=== PATIENT | female | born 1940 | race Caucasian/White ===

== ENCOUNTER → 2016-08-16 | Outpatient (CLI) | payer MEDICARE ==
[2016-08-16 08:57] LABS: ALT 28 U/L (9-52); AST 24 U/L (14-36); Alkaline Phosphatase 65 U/L (38-126); Anion Gap 10 mmol/L; Blood Urea Nitrogen 22 mg/dL (7-17); Calcium 10.2 mg/dL (8.4-10.2); Carbon Dioxide 28 mmol/L (22-30); Chloride 105 mmol/L (98-107); Cholesterol 224 mg/dL (<200); Glucose 94 mg/dL (74-99); HDL Cholesterol 54 mg/dL (40-60); Non-African American GFR(MDRD) >60 (>60 ml/min/1.73 sqM); Potassium 5.6 mmol/L (3.5-5.1); Sodium 143 mmol/L (137-145); Total Bilirubin 0.5 mg/dL (0.2-1.3); Total Protein 7.7 g/dL (6.3-8.2); Triglycerides 108 mg/dL (<150)
== END | disposition home or self-care (01) ==
LOC: LABWHC1 08:12
PROVIDERS: ATTEND Internal Medicine Endocrinology, Diabetes & Metabolism
DX: E11.65 Type 2 diabetes mellitus with hyperglycemia (principal)
CPT/HCPCS: 36415; 80053; 80061; 82043

== ENCOUNTER → 2016-10-04 | Outpatient (CLI) | payer MEDICARE ==
--- NOTE | 2016-10-05 08:42 | MM ---
Reason for exam: screening (asymptomatic). Last mammogram was performed 1 year and 1 month ago. History: Patient is postmenopausal. Benign excisional biopsy of the left breast. Took estrogen for 13 years beginning at age 34. Physical Findings: A clinical breast exam by your physician is recommended on an annual basis and results should be correlated with mammographic findings. MG 3D Screening Mammo W/Cad Bilateral CC and MLO view(s) were taken. Prior study comparison: August 22, 2015, bilateral MG 3d screening mammo w/cad. July 02, 2014, bilateral MG screening mammo w CAD. June 08, 2013, bilateral digital screening mammo w/CAD. There are scattered fibroglandular densities. There is chronic nodularity bilaterally. No significant changes when compared with prior studies. ASSESSMENT: Negative, BI-RAD 1 RECOMMENDATION: Routine screening mammogram of both breasts in 1 year.
== END | disposition home or self-care (01) ==
LOC: RADMAMWWP 10:52
PROVIDERS: ATTEND Internal Medicine
DX: Z12.31 Encounter for screening mammogram for malignant neoplasm of breast (principal)
CPT/HCPCS: 77063; G0202

== ENCOUNTER → 2017-09-15 | Outpatient (CLI) | payer MEDICARE ==
--- NOTE | 2017-09-15 20:25 | MR ---
EXAMINATION TYPE: MR brain wo/w con DATE OF EXAM: 09/15/2017 COMPARISON: NONE HISTORY: Headaches, Pressure, Gadaivist 10ml CONTRAST: Performed utilizing 10 mL intravenous Gadavist gadolinium contrast. TECHNIQUE: Multiplanar, multiecho imaging on a 3.0 Tena magnet is performed through the brain. Stud y is performed within 24 hours of arrival to the hospital. The craniovertebral junction is normal. The pituitary is normal. Diffusion-weighted imaging is performed. No abnormal hyperintensity is present to suggest an acute i ntracranial infarct or acute ischemic change. There are multiple scattered punctate areas of hyperintensity on T2 and Inversion Recovery weighted s equences which are non-specific but can be related to microvascular ischemic changes. Ventricles and sulci are appropriate for the patient age. IMPRESSIONS: 1. Scattered nonspecific white matter changes can be related to microvascular ischemic change.
== END | disposition home or self-care (01) ==
LOC: RADMRIMAIN 16:23
PROVIDERS: ATTEND Internal Medicine
DX: R90.89 Other abnormal findings on diagnostic imaging of central nervous system (principal); R51 Headache
CPT/HCPCS: 82565; 70553; A9581

== ENCOUNTER → 2018-04-21 | Outpatient (CLI) | payer MEDICARE ==
--- NOTE | 2018-04-21 09:44 | US ---
EXAMINATION TYPE: US liver DATE OF EXAM: 04/21/2018 COMPARISON: NONE CLINICAL HISTORY: R94.5 ABN LIVER FUNCTIONS. Abnormal liver function test EXAM MEASUREMENTS: Liver Length: 16.0 cm Gallbladder Wall: 0.2 cm CBD: 0.9 cm Right Kidney: 9.6 x 4.5 x 5.1 cm Difficult and limited study due to patient body habitus Pancreas: obscured by overlying midline bowel gas Liver: mildly heterogeneous limiting evaluation for hepatic masses. Gallbladder: borderline hydropic Evidence for sonographic Myers's sign: no CBD: dilated Right Kidney: wnl IMPRESSION: 1. Dilated common bile duct measuring up to 9 mm. Further evaluation with MRCP could be performed. 2. Mild heterogenous hepatic echotexture, most commonly related to underlying hepatic steatosis. 3. Near hydropic size of the gallbladder suggesting biliary dysfunction. HIDA scan with CCK could ass ess for biliary dyskinesia and/or chronic cholecystitis.
== END ==
LOC: RADUSWWP 08:04
PROVIDERS: ATTEND Internal Medicine
DX: K83.8 Other specified diseases of biliary tract (principal)
CPT/HCPCS: 76705

== ENCOUNTER 2018-05-08 11:34 | Emergency (ER) | payer MEDICARE ==
[2018-05-08 11:42] VITALS: TEMP 97.4
[2018-05-08] MEDS ORDERED: SODIUM CHLORIDE 0.9% 1,000 ML IV STA (11:47)
--- NOTE | 2018-05-08 13:06 | ED ---
Weakness HPI - General Chief complaint: Weakness Stated complaint: Weakness Time Seen by Provider: 05/08/18 11:47 Source: patient, RN notes reviewed, old records reviewed Mode of arrival: wheelchair Limitations: no limitations - History of Present Illness Initial comments: This is a 69-year-old female the ER for evaluation. Patient presents for evaluation regards to weakness. Patient admits to weakness and fatigue for about 4-5 days. She states symptoms began on with an event that causes some sweating and shortness of breath that symptoms resolved and patient is just been increasingly fatigued and weak since. Patient states she's had generalized fatigue for about 7 years with no significant improvement. MD Complaint: generalized weakness, lack of energy, difficulty walking ( Secondary to weakness) -: days(s) (5) Location: generalized Severity: moderate Severity scale (1-10): 5 Quality: numbness Consistency: constant Improves with: none Worsens with: none Context: recent illness, history of similar Associated Symptoms: denies other symptoms - Related Data Home Medications Medication Instructions Recorded Confirmed Insulin Glargine [Lantus] 25 unit SQ HS 04/26/14 05/08/18 [place]-3 Fatty Acids [[place]-3] 2,000 mg PO PC-LUNCH 04/26/14 05/08/18 metFORMIN HCL [Glucophage] 1,000 mg PO PC-BID@1200,1800 04/26/14 05/08/18 Aspirin EC [Ecotrin Low Dose] 81 mg PO DAILY 05/08/18 05/08/18 Carvedilol [Coreg] 6.25 mg PO BID 05/08/18 05/08/18 Clopidogrel [Plavix] 75 mg PO DAILY 05/08/18 05/08/18 Gemfibrozil [Lopid] 600 mg PO AC-BID 05/08/18 05/08/18 Insulin Aspart [NovoLOG 5 - 10 unit SQ AC-TID 05/08/18 05/08/18 (formulary)] Latanoprost [Xalatan 0.005%] 1 drop BOTH EYES HS 05/08/18 05/08/18 Liraglutide [Victoza 2-Chriss] 0.6 mg SQ DAILY@1200 05/08/18 05/08/18 Losartan/Hydrochlorothiazide 1 tab PO DAILY 05/08/18 05/08/18 [Losartan-Hctz 100-25 mg Tab] Pantoprazole Sodium 40 mg PO DAILY 05/08/18 05/08/18 amLODIPine [Norvasc] 5 mg PO DAILY 05/08/18 05/08/18 Allergies Allergy/AdvReac Type Severity Reaction Status Date / Time bacitracin Allergy Unknown Verified 05/08/18 11:58 [From Neosporin ([id number])] bacitracin zinc Allergy Unknown Verified 05/08/18 11:58 [From Neosporin ([id number])] latex Allergy Rash/Hives Verified 05/08/18 11:58 neomycin sulfate Allergy Unknown Verified 05/08/18 11:58 [From Neosporin ([id number])] polymyxin B Allergy Unknown Verified 05/08/18 11:58 [From Neosporin ([id number])] Penicillins AdvReac Rash & Verified 05/08/18 11:58 Fatigue Sulfa (Sulfonamide AdvReac Rash & Verified 05/08/18 11:58 Antibiotics) Fatigue Review of Systems ROS Statement: Those systems with pertinent positive or pertinent negative responses have been documented in the HPI. ROS Other: All systems not noted in ROS Statement are negative. Past Medical History Past Medical History: Diabetes Mellitus, GERD/Reflux, Hypertension, Sleep Apnea/ CPAP/BIPAP, Syncope, Thyroid Disorder Additional Past Medical History / Comment(s): ARTHRITIS/BACK PAIN/ PERM BRIDGE History of Any Multi-Drug Resistant Organisms: None Reported Past Surgical History: Appendectomy, Hysterectomy Additional Past Surgical History / Comment(s): vein strippingM MYRINGOTOMY/TUBES /COLONOSCOPY/LEFT BREAST BIOPSY-NEG Past Anesthesia/Blood Transfusion Reactions: No Reported Reaction Past Psychological History: No Psychological Hx Reported Smoking Status: Former smoker Past Alcohol Use History: Occasional Past Drug Use History: None Reported - Past Family History Father Family Medical History: Cancer Additional Family Medical History / Comment(s): COLON CA Mother Family Medical History: Diabetes Mellitus Additional Family Medical History / Comment(s): RENAL FAILURE General Exam Limitations: no limitations General appearance: alert, in no apparent distress Head exam: Present: atraumatic, normocephalic, normal inspection Eye exam: Present: normal appearance, PERRL, EOMI. Absent: scleral icterus, conjunctival injection, periorbital swelling ENT exam: Present: normal exam, mucous membranes moist Neck exam: Present: normal inspection. Absent: tenderness, meningismus, lymphadenopathy Respiratory exam: Present: normal lung sounds bilaterally. Absent: respiratory distress, wheezes, rales, rhonchi, stridor Cardiovascular Exam: Present: regular rate, normal rhythm, normal heart sounds. Absent: systolic murmur, diastolic murmur, rubs, gallop, clicks GI/Abdominal exam: Present: soft, normal bowel sounds. Absent: distended, tenderness, guarding, rebound, rigid Extremities exam: Present: normal inspection, full ROM, normal capillary refill. Absent: tenderness, pedal edema, joint swelling, calf tenderness Back exam: Present: normal inspection Neurological exam: Present: alert, oriented X3, CN II-XII intact Psychiatric exam: Present: normal affect, normal mood Skin exam: Present: warm, dry, intact, normal color. Absent: rash Course Vital Signs 05/08/18 05/08/18 05/08/18 11:39 13:39 14:00 Temperature 97.4 F L Pulse Rate 60 55 L 54 L Respiratory 18 18 18 Rate Blood Pressure 115/80 135/61 135/61 O2 Sat by Pulse 99 99 97 Oximetry - Reevaluation(s) Reevaluation #1: 05/08/18 13:06 Medical record is reviewed, noncontributory, no prior ER visit for same EKG Findings - EKG Comments: EKG Findings:: EKG shows sinus bradycardia rate of 56, MA 150, QRS 70, QTc 420 Medical Decision Making - Medical Decision Making 69 female the ER for weakness no acute cause found, labwork is normal. Patient can be discharged home - Lab Data Result diagrams: 05/08/18 13:21 05/08/18 13:21 Lab Results 05/08/18 05/08/18 05/08/18 Range/Units 13:20 13:21 13:21 WBC 6.6 (3.8-10.6) k/uL RBC 4.05 (3.80-5.40) m/uL Hgb 12.3 (11.4-16.0) gm/dL Hct 36.8 (34.0-46.0) % MCV 90.8 (80.0-100.0) fL MCH 30.2 (25.0-35.0) pg MCHC 33.3 (31.0-37.0) g/dL RDW 13.6 (11.5-15.5) % Plt Count 370 (150-450) k/uL Neutrophils % 74 % Lymphocytes % 14 % Monocytes % 5 % Eosinophils % 3 % Basophils % 0 % Neutrophils # 4.9 (1.3-7.7) k/uL Lymphocytes # 0.9 L (1.0-4.8) k/uL Monocytes # 0.3 (0-1.0) k/uL Eosinophils # 0.2 (0-0.7) k/uL Basophils # 0.0 (0-0.2) k/uL Sodium (137-145) mmol/L Potassium (3.5-5.1) mmol/L Chloride (98-107) mmol/L Carbon Dioxide (22-30) mmol/L Anion Gap mmol/L BUN (7-17) mg/dL Creatinine (0.52-1.04) mg/dL Est GFR (CKD-EPI)AfAm (>60 ml/min/1.73 sqM) Est GFR (CKD-EPI)NonAf (>60 ml/min/1.73 sqM) Glucose (74-99) mg/dL Plasma Lactic Acid Cody (0.7-2.0) mmol/L Calcium (8.4-10.2) mg/dL Phosphorus (2.5-4.5) mg/dL Magnesium (1.6-2.3) mg/dL Total Bilirubin (0.2-1.3) mg/dL AST (14-36) U/L ALT (9-52) U/L Alkaline Phosphatase (38-126) U/L Total Creatine Kinase 33 (30-135) U/L CK-MB (CK-2) 0.7 (0.0-2.4) ng/mL CK-MB (CK-2) Rel Index 2.1 Troponin I <0.012 (0.000-0.034) ng/mL NT-Pro-B Natriuret Pep pg/mL Total Protein (6.3-8.2) g/dL Albumin (3.5-5.0) g/dL Urine Color Yellow Urine Appearance Cloudy H (Clear) Urine pH 6.0 (5.0-8.0) Ur Specific Hulen 1.012 (1.001-1.035) Urine Protein Negative (Negative) Urine Glucose (UA) 3+ H (Negative) Urine Ketones Negative (Negative) Urine Blood Negative (Negative) Urine Nitrite Negative (Negative) Urine Bilirubin Negative (Negative) Urine Urobilinogen <2.0 (<2.0) mg/dL Ur Leukocyte Esterase Moderate H (Negative) Urine WBC 2 (0-5) /hpf Ur Squamous Epith Cells 9 H (0-4) /hpf Urine Bacteria Few H (None) /hpf Urine Mucus Rare H (None) /hpf 05/08/18 05/08/18 05/08/18 Range/Units 13:21 13:21 13:21 WBC (3.8-10.6) k/uL RBC (3.80-5.40) m/uL Hgb (11.4-16.0) gm/dL Hct (34.0-46.0) % MCV (80.0-100.0) fL MCH (25.0-35.0) pg MCHC (31.0-37.0) g/dL RDW (11.5-15.5) % Plt Count (150-450) k/uL Neutrophils % % Lymphocytes % % Monocytes % % Eosinophils % % Basophils % % Neutrophils # (1.3-7.7) k/uL Lymphocytes # (1.0-4.8) k/uL Monocytes # (0-1.0) k/uL Eosinophils # (0-0.7) k/uL Basophils # (0-0.2) k/uL Sodium 138 (137-145) mmol/L Potassium 5.3 H (3.5-5.1) mmol/L Chloride 104 (98-107) mmol/L Carbon Dioxide 23 (22-30) mmol/L Anion Gap 11 mmol/L BUN 26 H (7-17) mg/dL Creatinine 0.96 (0.52-1.04) mg/dL Est GFR (CKD-EPI)AfAm 66 (>60 ml/min/1.73 sqM) Est GFR (CKD-EPI)NonAf 57 (>60 ml/min/1.73 sqM) Glucose 269 H (74-99) mg/dL Plasma Lactic Acid Cody 2.1 H* (0.7-2.0) mmol/L Calcium 9.8 (8.4-10.2) mg/dL Phosphorus 4.8 H (2.5-4.5) mg/dL Magnesium 1.5 L (1.6-2.3) mg/dL Total Bilirubin 0.7 (0.2-1.3) mg/dL AST 26 (14-36) U/L ALT 34 (9-52) U/L Alkaline Phosphatase 81 (38-126) U/L Total Creatine Kinase (30-135) U/L CK-MB (CK-2) (0.0-2.4) ng/mL CK-MB (CK-2) Rel Index Troponin I (0.000-0.034) ng/mL NT-Pro-B Natriuret Pep 203 pg/mL Total Protein 7.3 (6.3-8.2) g/dL Albumin 4.4 (3.5-5.0) g/dL Urine Color Urine Appearance (Clear) Urine pH (5.0-8.0) Ur Specific [place] (1.001-1.035) Urine Protein (Negative) Urine Glucose (UA) (Negative) Urine Ketones (Negative) Urine Blood (Negative) Urine Nitrite (Negative) Urine Bilirubin (Negative) Urine Urobilinogen (<2.0) mg/dL Ur Leukocyte Esterase (Negative) Urine WBC (0-5) /hpf Ur Squamous Epith Cells (0-4) /hpf Urine Bacteria (None) /hpf Urine Mucus (None) /hpf Disposition Clinical Impression: Dehydration, Weakness, IDDM (insulin dependent diabetes mellitus) Disposition: HOME SELF-CARE Condition: Good Instructions (If sedation given, give patient instructions): Weakness (ED) Is patient prescribed a controlled substance at d/c from ED?: No Referrals: Aundrea Gamez MD [Primary Care Provider] - 1-2 days
[2018-05-08 13:52] VITALS: BP 135/61
[2018-05-08 13:53] LABS: Basophils % (A) 0 %; Eosinophils # (A) 0.2 k/uL (0-0.7); Eosinophils % (A) 3 %; HCT 36.8 % (34.0-46.0); HGB 12.3 gm/dL (11.4-16.0); Lymphocytes # (A) 0.9 k/uL (1.0-4.8); Lymphocytes % (A) 14 %; MCH 30.2 pg (25.0-35.0); MCHC 33.3 g/dL (31.0-37.0); MCV 90.8 fL (80.0-100.0); Mean Platelet Volume 7.6; Monocytes # (A) 0.3 k/uL (0-1.0); Monocytes % (A) 5 %; Neutrophils # (A) 4.9 k/uL (1.3-7.7); Neutrophils % (A) 74 %; Platelet Count 370 k/uL (150-450); RBC 4.05 m/uL (3.80-5.40); RDW 13.6 % (11.5-15.5); WBC 6.6 k/uL (3.8-10.6)
[2018-05-08 14:00] LABS: Appearance,Urine Cloudy (Clear); Bacteria,Urine Few /hpf; Bilirubin,Urine Negative (Negative); Blood,Urine Negative (Negative); Color,Urine Yellow; Glucose,Urine (UA) 3+ (Negative); Ketones,Urine Negative (Negative); Leukocyte Esterase,Urine Moderate (Negative); Mucus,Urine Rare /hpf; Nitrite,Urine Negative (Negative); Protein,Urine Negative (Negative); Specific Gravity,Urine 1.012 (1.001-1.035); Squamous Epithelial Cell,Urine 9 /hpf (0-4); Urobilinogen,Urine <2.0 mg/dL (<2.0); WBC,Urine 2 /hpf (0-5)
[2018-05-08 14:02] LABS: Albumin 4.4 g/dL (3.5-5.0); Calcium 9.8 mg/dL (8.4-10.2); Magnesium 1.5 mg/dL (1.6-2.3); Phosphorus 4.8 mg/dL (2.5-4.5); Potassium 5.3 mmol/L (3.5-5.1); Total Bilirubin 0.7 mg/dL (0.2-1.3); Total Protein 7.3 g/dL (6.3-8.2)
[2018-05-08 14:08] LABS: Creatine Kinase 33 U/L (30-135)
[2018-05-08 14:20] LABS: Creatine Kinase MB 0.7 ng/mL (0.0-2.4); Troponin I <0.012 ng/mL (0.000-0.034)
[2018-05-08 15:41] VITALS: PULSE 60; RESP 18
== END 2018-05-08 15:51 | disposition home or self-care (01) ==
LOC: EC 11:34
DX: E86.0 Dehydration (principal); E11.9 Type 2 diabetes mellitus without complications; R53.1 Weakness; K21.9 Gastro-esophageal reflux disease without esophagitis; I10 Essential (primary) hypertension; G47.30 Sleep apnea, unspecified; Z99.89 Dependence on other enabling machines and devices; E07.9 Disorder of thyroid, unspecified; Z87.891 Personal history of nicotine dependence; Z79.4 Long term (current) use of insulin; Z79.82 Long term (current) use of aspirin; Z79.01 Long term (current) use of anticoagulants; Z79.899 Other long term (current) drug therapy; Z88.1 Allergy status to other antibiotic agents; Z88.0 Allergy status to penicillin; Z88.2 Allergy status to sulfonamides; Z91.040 Latex allergy status
CPT/HCPCS: 36415; 80053; 81001; 82550; 82553; 83605; 83735; 83880; 84100; 84484; 85025; 87086; 93005; 96360; 96361; 99285

== ENCOUNTER → 2018-05-18 | Outpatient (CLI) | payer MEDICARE ==
--- NOTE | 2018-05-18 14:32 | BD ---
EXAMINATION TYPE: Axial Bone Density DATE OF EXAM: 05/18/2018 COMPARISON: NONE CLINICAL HISTORY: Height: Weight: FRAX RISK QUESTIONS: Alcohol (3 or more units per day): no Family History (Parent hip fracture): no Glucocorticoids (More than 3mos): no (Ex: prednisone, prednisolone, methylprednisolone, dexamethasone, and hydrocortisone). History of Fracture in Adulthood: no Secondary Osteoporosis: 1. Type 1 Diabetes: no 2. Hyperthyroidism: no 3. Menopause before 45: yes 4. Malnutrition: no 5. Chronic liver disease: no Rheumatoid Arthritis: no Current Tobacco Use: no RISK FACTORS HISTORY OF: Active: no Diet low in dairy products/other sources of calcium: no Postmenopausal woman: hysterectomy age34 t more than 2 inches in height since high school: yes Frequent falls: no MEDICATIONS: losartan, carvedilol, amlodipine, metformin, aspirin, novalog, lantis, clopidogrel Additional History: EXAM MEASUREMENTS: Bone mineral densitometry was performed using the [employer] System. Bone mineral density as measured about the Lumbar spine is: ----- L1-L4(G/cm2): 0.985 T Score Values are as follows: ----- L2: -2.1 ----- L3: -0.9 ----- L4: -1.3 ----- L1-L4: -1.6 Bone mineral density has:increased 4.9 % since study of 12.01.2015 Bone mineral density about the R hip (g/cm2): 0.878 Bone mineral density about the L hip (g/cm2): 0.857 T Score values are as follows: -----R Neck: -1.2 -----L Neck: -1.3 -----R Total: -0.6 -----L Total: -0.6 Bone mineral density has: decreased -4.0% since study 12.01.2015 IMPRESSION: Osteopenia lumbar spine. NOTE: T-SCORE=SD OF THE YOUNG ADULT MEAN.
--- NOTE | 2018-05-19 13:55 | MM ---
Reason for exam: screening (asymptomatic). Last mammogram was performed 1 year and 7 months ago. History: Patient is postmenopausal. Benign excisional biopsy of the left breast. Took estrogen for 13 years beginning at age 34. Physical Findings: A clinical breast exam by your physician is recommended on an annual basis and results should be correlated with mammographic findings. MG 3D Screening Mammo W/Cad Bilateral CC and MLO view(s) were taken. Prior study comparison: October 04, 2016, bilateral MG 3d screening mammo w/cad. August 28, 2015, right breast MG work up mamm w CAD RT. There are scattered fibroglandular densities. Benign appearing bilateral calcifications. No suspicious abnormality. Post biopsy change on left. No significant changes when compared with prior studies. ASSESSMENT: Benign, BI-RAD 2 RECOMMENDATION: Routine screening mammogram of both breasts in 1 year.
== END | disposition home or self-care (01) ==
LOC: RADMAMWWP 13:23
PROVIDERS: ATTEND Internal Medicine
DX: Z12.31 Encounter for screening mammogram for malignant neoplasm of breast (principal); M85.851 Other specified disorders of bone density and structure, right thigh; M85.88 Other specified disorders of bone density and structure, other site
CPT/HCPCS: 77063; 77067; 77080

== ENCOUNTER → 2018-11-28 | Outpatient (CLI) | payer MEDICARE ==
--- NOTE | 2018-11-28 14:50 | US ---
EXAMINATION TYPE: US kidneys/renal and bladder DATE OF EXAM: 11/28/2018 COMPARISON: NONE CLINICAL HISTORY: R33.9 Urinary retention. Urinary retention EXAM MEASUREMENTS: Right Kidney: 10.0 x 4.0 x 4.2 cm Left Kidney: 10.7 x 5.9 x 4.6 cm Post Void Residual Volume: 6.7 mL Right Kidney: no evidence of hydronephrosis Left Kidney: no evidence of hydronephrosis Bladder: appears wnl Bilateral Jets seen: no Normal Post Void Residual: yes There is no evidence for hydronephrosis at this point in time. No nephrolithiasis is seen. No kike s are identified. The urinary bladder is anechoic. Bilateral ureteral jets are seen. Tiny amount of urine is seen after voiding. IMPRESSION: Unremarkable study. No abnormal post void residual noted.
== END | disposition home or self-care (01) ==
LOC: RADUSWWP 14:10
PROVIDERS: ATTEND Internal Medicine
DX: R33.9 Retention of urine, unspecified (principal)
CPT/HCPCS: 76770

== ENCOUNTER 2019-06-13 06:16 | Day surgery (SDC) | payer MEDICARE ==
[2019-06-08 12:08] VITALS: BMI 37.5
[2019-06-13] MEDS ORDERED: ALPRAZolam 0.5 MG TAB PO PRN (06:23)
[2019-06-13] MEDS ORDERED: ASPIRIN 325 MG TAB PO STA (06:23)
[2019-06-13] MEDS ORDERED: ATORVASTATIN 80 MG TAB PO STA (06:23)
[2019-06-13] MEDS ORDERED: SODIUM CHLORIDE 0.9% 1,000 ML in EMPTY BAG 1 BAG IV ONE (06:23)
[2019-06-13] MEDS ORDERED: NITROGLYCERIN SL TABS 0.4 MG TAB SUBLINGUAL PRN (06:23)
[2019-06-13] MEDS ORDERED: ALPRAZolam 0.25 MG TAB PO PRN (06:23)
[2019-06-13] MEDS ORDERED: ASPIRIN 81 MG PO ONE (07:09)
[2019-06-13 07:13] VITALS: TEMP 97.7
[2019-06-13 07:15] LABS: Glucose,Whole Blood 174 mg/dL (75-99)
[2019-06-13 07:31] LABS: Calcium 9.8 mg/dL (8.4-10.2); Potassium 5.5 mmol/L (3.5-5.1)
[2019-06-13] MEDS ORDERED: LIDOCAINE 1% INJ 10MG/ML (20 ML MDV) ONE (08:50)
[2019-06-13] MEDS ORDERED: fentaNYL (PF) 50 MCG/ML 2 ML AMP ONE (09:02)
[2019-06-13] MEDS ORDERED: LIDOCAINE 1% INJ 10MG/ML (20 ML MDV) SQ ONE (09:41)
[2019-06-13] MEDS ORDERED: fentaNYL (PF) 50 MCG/ML 2 ML AMP IVP ONE (09:41)
[2019-06-13] MEDS ORDERED: MIDAZOLAM 2 MG/2 ML VIAL IVP ONE (09:41)
[2019-06-13] MEDS ORDERED: NITROGLYCERIN 1000MCG/10ML SYRINGE INTRACORON ONE (09:47)
[2019-06-13] MEDS ORDERED: IOPAMIDOL-370 125ML BTL INJ ONE (09:55)
[2019-06-13] MEDS ORDERED: RX INFO: IV CONTRAST WAS GIVEN 1 EACH MISC MISCELLANE PRN (10:12)
[2019-06-13] MEDS ORDERED: SODIUM CHLORIDE 0.9% 1,000 ML IV SCH (10:15)
--- NOTE | 2019-06-13 10:36 | LTR ---
June 13, 2019 Re: Becky Cameron Dear Dr. Gamez: I had the opportunity to perform cardiac catheterization on Mrs. Barnes at [facility] on the 12 of June and a full copy of her procedure note will be forwarded to you. In brief, she was found to have no evidence of restenosis of the prior stenting with evidence of mild triple-vessel coronary disease and a mild plaque in the left main. In view of those finding, I recommend to continue medical therapy with aggressive coronary risk modifications that have been initiated. Those findings and recommendation were discussed with the patient and her family and are in full understanding and agreement. Sincerely yours, MD AMARJIT Lazo / ADELEN: [phone] /
--- NOTE | 2019-06-13 10:36 | CC ---
CARDIAC CATHETERIZATION REPORT Mrs. Barnes is a 78-year-old female with known history of hypertension, hyperlipidemia, and diabetes mellitus, who has been complaining of progressive dyspnea on exertion, had a myocardial perfusion imaging that revealed an anterolateral wall inducible ischemia. In view of that, recommendation was made regarding cardiac catheterization. The procedure as well as the risks and the complications were discussed with the patient who is in full understanding and agreement. PROCEDURE: Patient was brought to the veterinarian laboratory animal care in a fasting semi-sedated state after receiving fentanyl and Benadryl and achieving moderate conscious sedated state. Using Xylocaine anesthesia in the Seldinger technique, a 6-[place] sheath was introduced in the right femoral artery. Selective right and left coronary angiography performed using 6-[place]ank[place] 4 bend right and left Natalie catheter. Multiple views of the coronary artery including hemiaxial views were obtained. Following that, 6-[place]ank[place] tight pigtail catheter introduced in the left ventricle and pressures were calculated. Following that, catheter and sheath were removed. Hemostasis was obtained with deployment of Angio-Seal. There was no immediate complication. Patient was returned to her room in stable condition. FINDING: LEFT MAIN: This is a large-sized vessel bifurcating left circumflex, left anterior descending artery. Left main coronary artery has a 20% to 30% plaque proximally eccentric. The rest of the vessel has no high-grade stenosis. LEFT ANTERIOR DESCENDING ARTERY: This is a large-sized vessel reaching to the apex, tapers down distally and gives rise to a moderately sized diagonal branch. The stented segment of proximal LAD is patent. There is diffuse intimal disease in the LAD after the stented segment. The lumen of the vessel is small, but there is no evidence of high-grade stenosis. LEFT CIRCUMFLEX: This is a nondominant vessel giving rise to 2 obtuse marginal branches. The left circumflex has mild intimal disease without any evidence of high- grade stenosis. RIGHT CORONARY ARTERY: This is a dominant vessel, large in caliber bifurcating distally PDA and posterolateral segment and branches. The right coronary artery and distal segment at the bifurcation has a 10% to 20% plaque. There is another plaque in the mid segment. The rest of the vessel has no high-grade stenosis. LEFT VENTRICULOGRAM: Left ventriculogram was not performed. HEMODYNAMICS: There was no gradient across the aortic valve. The left ventricle end-diastolic pressure was 12 to 16 mmHg. CONCLUSION: 1. Mild triple vessel coronary disease with mild disease involving the left main. 2. No evidence of restenosis at the site of the prior stenting. RECOMMENDATION: In view of finding and anatomy, I recommend to continue medical therapy with aggressive coronary risk modifications that have been initiated. Those findings and recommendations were discussed with the patient and her family and they are in full understanding and agreement. Duration of procedure is 15 minutes. MMBILLIE / ADELEN: [phone] /
[2019-06-13 15:05] VITALS: RESP 16
[2019-06-13 15:15] VITALS: BP 148/62
[2019-06-13 16:06] VITALS: PULSE 65
[2019-06-13] MEDS ORDERED: CARVEDILOL 6.25 MG TAB PO SCH (17:30)
[2019-06-13] MEDS ORDERED: GEMFIBROZIL 600 MG PO SCH (17:30)
[2019-06-13] MEDS ORDERED: INSULIN GLARGINE 15 UNIT SQ SCH (21:00)
[2019-06-14] MEDS ORDERED: PANTOPRAZOLE 40 MG TABLET PO SCH (07:30)
[2019-06-14] MEDS ORDERED: LOSARTAN-HCTZ 50-12.5 MG 1 EACH TAB PO SCH (09:00)
[2019-06-14] MEDS ORDERED: CHOLECALCIFEROL 1,000 UNIT TAB PO SCH (09:00)
[2019-06-14] MEDS ORDERED: CYANOCOBALAMIN 500 MCG TAB PO SCH (09:00)
[2019-06-14] MEDS ORDERED: LACTOBACILLUS ACIDOPH & BULGAR 1 EACH PACKET PO SCH (09:00)
[2019-06-14] MEDS ORDERED: FERROUS SULFATE 325 MG TAB PO SCH (09:00)
[2019-06-14] MEDS ORDERED: CLOPIDOGREL 75 MG TAB PO SCH (09:00)
[2019-06-14] MEDS ORDERED: amLODIPine 5 MG TAB PO SCH (09:00)
[2019-06-14] MEDS ORDERED: FAMOTIDINE 20 MG TAB PO SCH (09:00)
[2019-06-14] MEDS ORDERED: ASPIRIN 81 MG PO SCH (09:00)
[2019-06-14] MEDS ORDERED: MULTIVITAMINS, THERA 1 EACH TAB PO SCH (09:00)
== END 2019-06-13 16:15 | disposition home or self-care (01) ==
LOC: CATHCVL 06:16
PROVIDERS: ATTEND Internal Medicine Interventional Cardiology
DX: I25.10 Atherosclerotic heart disease of native coronary artery without angina pectoris (principal); E78.2 Mixed hyperlipidemia; I10 Essential (primary) hypertension; E11.9 Type 2 diabetes mellitus without complications; I73.9 Peripheral vascular disease, unspecified; E78.00 Pure hypercholesterolemia, unspecified; R60.0 Localized edema; M25.50 Pain in unspecified joint; R01.1 Cardiac murmur, unspecified; F17.210 Nicotine dependence, cigarettes, uncomplicated; E66.9 Obesity, unspecified; Z68.37 Body mass index [BMI] 37.0-37.9, adult; Z79.899 Other long term (current) drug therapy; Z79.82 Long term (current) use of aspirin; Z79.02 Long term (current) use of antithrombotics/antiplatelets; Z95.5 Presence of coronary angioplasty implant and graft; Z79.4 Long term (current) use of insulin; Z88.0 Allergy status to penicillin; Z88.2 Allergy status to sulfonamides
CPT/HCPCS: 93458; 80048; C1760; C1894; C1769; J2250; J2001; J3010; Q9967

== ENCOUNTER 2021-04-08 05:46 | Day surgery (SDC) | payer MEDICARE ==
[2021-03-30 11:14] VITALS: BMI 34.5
[~2021-04-08 05:46] MED LIST: Pre Op ABX Message 1 EACH MISC MISCELLANE ONE
[2021-04-08] MEDS ORDERED: LIDOCAINE 1% (10MG/ML) FOR IV START INTRADERMA PRN (06:00)
[2021-04-08] MEDS ORDERED: LACTATED RINGERS 1,000 ML IV SCH (06:00)
[2021-04-08 06:36] VITALS: RESP 16; TEMP 97.4
[2021-04-08 06:55] LABS: Glucose,Whole Blood 251 mg/dL (75-99)
[2021-04-08] MEDS ORDERED: ONDANSETRON 4 MG/2 ML VIAL IVP PRN (07:00)
[2021-04-08] MEDS ORDERED: METOCLOPRAMIDE 5 MG/ML 2 ML VIAL IVP PRN (07:00)
[2021-04-08] MEDS ORDERED: INSULIN ASPART (NovoLOG) 100 UNIT/ML VIAL SQ ONE (07:05)
[2021-04-08] MEDS ORDERED: CLINDAMYCIN 600 MG in DEXTROSE 5% IN WATER 50 ML IVPB STA ×2 (07:19)
[2021-04-08 07:24] LABS: Basophils % (A) 0 %; Eosinophils # (A) 0.5 k/uL (0-0.7); Eosinophils % (A) 7 %; HCT 34.1 % (34.0-46.0); HGB 11.2 gm/dL (11.4-16.0); Lymphocytes # (A) 1.3 k/uL (1.0-4.8); Lymphocytes % (A) 17 %; MCH 30.8 pg (25.0-35.0); MCV 93.6 fL (80.0-100.0); Mean Platelet Volume 8.5; Monocytes # (A) 0.5 k/uL (0-1.0); Monocytes % (A) 7 %; Neutrophils # (A) 4.9 k/uL (1.3-7.7); Neutrophils % (A) 67 %; Platelet Count 323 k/uL (150-450); RBC 3.64 m/uL (3.80-5.40); RDW 12.7 % (11.5-15.5); WBC 7.3 k/uL (3.8-10.6)
[2021-04-08] MEDS ORDERED: fentaNYL (PF) 50 MCG/ML 2 ML AMP ONE (07:27)
[2021-04-08] MEDS ORDERED: PROPOFOL 10 MG/ML 20 ML VIAL IV ONE (07:27)
[2021-04-08] MEDS ORDERED: MIDAZOLAM 2 MG/2 ML VIAL ONE (07:27)
[2021-04-08] MEDS: fentaNYL (PF) 50 MCG/ML 2 ML AMP IV PRN ×2 (08:06→08:18)
[2021-04-08] MEDS ORDERED: ONDANSETRON 4 MG/2 ML VIAL ONE (08:26)
[2021-04-08] MEDS ORDERED: ONDANSETRON 4 MG/2 ML VIAL IVP ONE (08:27)
[2021-04-08 09:08] LABS: Glucose,Whole Blood 214 mg/dL (75-99)
[2021-04-08 09:09] VITALS: PULSE 74
[2021-04-08 09:47] VITALS: BP 157/66
--- NOTE | 2021-04-30 15:42 | P.OP ---
Date of Procedure: 04/08/21 Description of Procedure: Preoperative diagnosis: Nonhealing left lower extremity wound Postoperative diagnosis: Same Procedure: [Sharp excisional debridement of left lower extremity wound measuring 5.1 x 4.5 x 0.5 cm to muscle Placement of Epifix dermal matrix] Surgeon: Francoise Triana D.O. EBL: [<10cc] IV fluids: [See records] Urine output: [see records] Drains: [none] Complications: [None immediately apparent] Condition: [Stable to recovery] Operative indication and findings: [The patient is an 80-year-old female with a nonhealing left lower extremity wound she has been on antibiotic therapy for this patient for the pain and this wound therefore she is brought here today for debridement and possible skin substitute with epifix. Risks and benefits were discussed. He seemingly understood and is willing to proceed as such] Procedure in detail: [Patient was taken to the operative suite and placed in supine position. The left lower extremity is prepped and draped in usual sterile fashion. A preprocedure timeout was performed, all parties are in agreement. Using a scalpel and curet the wound was debrided. Measurements are as above. It did track deep and there is no purulent drainage or discharge. There was healthy-appearing fatty tissue and muscle therefore the incision was made for the dermal matrix. The epi-fix was placed and sutured in place with sutures of 3-0 chromic. An Adaptic dressing was placed followed by gauze. The patient was allowed awaken from anesthesia and transported to recovery in stable condition having tolerated procedure well.]
== END 2021-04-08 10:10 | disposition home health service (06) ==
LOC: OR 05:46
PROVIDERS: ATTEND Surgery
DX: L97.222 Non-pressure chronic ulcer of left calf with fat layer exposed (principal); E11.621 Type 2 diabetes mellitus with foot ulcer; I10 Essential (primary) hypertension; E11.51 Type 2 diabetes mellitus with diabetic peripheral angiopathy without gangrene; I65.29 Occlusion and stenosis of unspecified carotid artery; Z79.899 Other long term (current) drug therapy; Z79.4 Long term (current) use of insulin; E11.42 Type 2 diabetes mellitus with diabetic polyneuropathy
CPT/HCPCS: 84132; 85025; 11042; 11045; C1713; J2250; J2405; J3010; J2704; J1790

== ENCOUNTER 2021-05-20 10:30 | Day surgery (SDC) | payer MEDICARE ==
[2021-05-19 08:57] VITALS: BMI 34.0
--- NOTE | 2021-05-20 10:20 | P.GSHP ---
History of Present Illness H&P Date: 05/20/21 Chief Complaint: Ulcer left leg The patient had an injury of the left leg. She developed progressive ulceration. She did have vascular intervention. She is admitted for further debridement. Past Medical History Past Medical History: Diabetes Mellitus, GERD/Reflux, Hypertension, Osteoarthritis (OA), Skin Disorder, Syncope, Vascular Disorder Additional Past Medical History / Comment(s): Arthritis in lower back. Poor circulation in legs, wound left lower leg calf area w/ pain, neuropathy in feet, goes to [facility]. Edema bilateral lower extremities, wears TEDS on right leg. Shortness of breath. History of Any Multi-Drug Resistant Organisms: None Reported Past Surgical History: Appendectomy, Breast Surgery, Ear Surgery, Heart Catheterization, Heart Catheterization With Stent, Hysterectomy Additional Past Surgical History / Comment(s): Varicose vein stripping left leg, left ear myringotomy/tubes, colonoscopy, left breast biopsy, bilateral cataracts, left leg wound debridement. Past Anesthesia/Blood Transfusion Reactions: No Reported Reaction Date of Last Stent Placement:: 11/26 Past Psychological History: No Psychological Hx Reported Smoking Status: Former smoker Past Alcohol Use History: Rare Additional Past Alcohol Use History / Comment(s): STARTED SMOKING AT AGE 14, SMOKED 2PPD, QUIT IN I991. Past Drug Use History: None Reported - Past Family History Father Family Medical History: Cancer Additional Family Medical History / Comment(s): COLON CANCER. Mother Family Medical History: Diabetes Mellitus, Renal Disease Additional Family Medical History / Comment(s): RENAL FAILURE. Brother(s) Family Medical History: Cancer Additional Family Medical History / Comment(s): 3 brothers - 2 had stomach cancer, 1 had esophagueal cancer. Medications and Allergies Home Medications Medication Instructions Recorded Confirmed Type Insulin Glargine [Lantus] 6 unit SQ HS 04/26/14 03/30/21 History metFORMIN HCL [Glucophage] 500 mg PO AC-BRKFST 04/26/14 03/30/21 History Aspirin EC [Ecotrin Low Dose] 81 mg PO DAILY 05/08/18 03/30/21 History INSULIN ASPART (NovoLOG) [NovoLOG 8 - 12 unit SQ AC-TID 05/08/18 03/30/21 History (formulary)] Pantoprazole Sodium 40 mg PO DAILY 05/08/18 03/30/21 History carvediloL [Coreg] 6.25 mg PO BID 05/08/18 03/30/21 History gemfibroziL [Lopid] 600 mg PO AC-BID 05/08/18 03/30/21 History Cholecalciferol [Vitamin D3 (25 2,000 unit PO DAILY 06/08/19 03/30/21 History Mcg = 1000 Iu)] Cyanocobalamin (Vitamin B-12) 2,000 mcg PO DAILY 06/08/19 03/30/21 History [Vitamin B-12] Famotidine [Pepcid] 20 mg PO HS 06/08/19 03/30/21 History Ferrous Sulfate [Feosol] 325 mg PO DAILY 06/08/19 03/30/21 History Flaxseed Oil 1,000 mg PO BID 06/08/19 03/30/21 History L.acidoph,Paracasei, B.lactis 1 each PO DAILY 06/08/19 03/30/21 History [Probiotic] Vitamin C/Biotin [Hair, Skin and 1 tab PO DAILY 06/08/19 03/30/21 History Nails] Acetaminophen [Tylenol Extra 500 - 1,000 mg PO DIRECTED PRN 03/30/21 03/30/21 History Strength] Ascorbic Acid [Vitamin C] 1,000 mg PO DAILY 03/30/21 03/30/21 History Furosemide [Lasix] 40 mg PO DAILY 03/30/21 03/30/21 History Losartan Potassium [Cozaar] 50 mg PO DAILY 03/30/21 03/30/21 History hydroCHLOROthiazide [Hydrodiuril] 25 mg PO DAILY 03/30/21 03/30/21 History Allergies Allergy/AdvReac Type Severity Reaction Status Date / Time bacitracin Allergy Unknown Verified 05/19/21 08:37 [From Neosporin ([id number])] bacitracin zinc Allergy Unknown Verified 05/19/21 08:37 [From Neosporin ([id number])] latex Allergy Rash/Hives Verified 05/19/21 08:37 neomycin sulfate Allergy Unknown Verified 05/19/21 08:37 [From Neosporin ([id number])] polymyxin B Allergy Unknown Verified 05/19/21 08:37 [From Neosporin ([id number])] Penicillins AdvReac Rash & Verified 05/19/21 08:37 Fatigue Sulfa (Sulfonamide AdvReac Rash & Verified 05/19/21 08:37 Antibiotics) Fatigue Surgical - Exam Osteopathic Statement: *. No significant issues noted on an osteopathic structural exam other than those noted in the History and Physical/Consult. - General well developed, well nourished, no distress - Eyes normal ocular movement, no icteric - ENT no hearing loss, no congestion - Neck no masses, trachea midline - Respiratory normal respiratory effort, clear to auscultation - Abdomen Abdomen: soft, non tender, no guarding, no rigid, no rebound - Integumentary no rash, no abnormal pigmentation - Neurologic no disoriented, no combative - Psychiatric oriented to time, oriented to person, oriented to place, speech is normal, memory intact ulcer left lower leg Assessment and Plan (1) Diabetic ulcer of left lower leg associated with diabetes mellitus due to u nderlying condition, with fat layer exposed Status: Acute Code(s): E08.622 - DIABETES DUE TO UNDERLYING CONDITION W OTH SKIN ULCER; L97.922 - NON-PRS CHR ULC UNSP PRT OF L LOW LEG W FAT LAYER EXPOSED SNOMED Code(s): 125364354 Plan: "Patient is admitted for debridement of the left lower leg. We discussed with her options and risks and she wishes to proceed."
[~2021-05-20 10:30] MED LIST changes: +DEXAMETHASONE SOD PHOSPHATE 4 MG/ML 1 ML VIAL IV ONE; +HYDROmorphone 0.5 MG/0.5 ML SYRINGE IVP PRN; +LACTATED RINGERS 1,000 ML IV SCH; +LIDOCAINE 1% (10MG/ML) FOR IV START INTRADERMA PRN; +MIDAZOLAM 2 MG/2 ML VIAL IV PRN; +ONDANSETRON 4 MG/2 ML VIAL IVP ONE
[2021-05-20 11:05] VITALS: TEMP 97.2
[2021-05-20 11:09] LABS: Glucose,Whole Blood 251 mg/dL (75-99)
[2021-05-20] MEDS ORDERED: INSULIN ASPART (NovoLOG) 100 UNIT/ML VIAL SQ ONE (11:16)
[2021-05-20] MEDS ORDERED: PROPOFOL 10 MG/ML 20 ML VIAL IV ONE (11:58)
[2021-05-20] MEDS ORDERED: MIDAZOLAM 2 MG/2 ML VIAL ONE (11:58)
[2021-05-20] MEDS ORDERED: fentaNYL (PF) 50 MCG/ML 2 ML AMP ONE (11:58)
[2021-05-20] MEDS ORDERED: HYDROmorphone (PF) 1 MG/ML ONE (11:58)
--- NOTE | 2021-05-20 12:26 | P.OP ---
Date of Procedure: 05/20/21 Preoperative Diagnosis: Ulcer left calf Postoperative Diagnosis: Same Procedure(s) Performed: Surgical debridement left calf Anesthesia: MAC Surgeon: Leonardo Herrera Estimated Blood Loss (ml): 25 Pathology: none sent Condition: stable Disposition: PACU Indications for Procedure: The patient has a painful ulcer on the left calf. There continues to be some nonviable tissue which we were unable to debridement due to discomfort. Operative Findings: We were able to remove all nonviable tissue down to the fascia and to viable fatty tissue circumferentially. Prior to debridement the wound measured 4.7 x 4.7 cm. It was about 1 cm in depth. Following the debridement we took the debridement down to bleeding fascia and viable fatty tissue circumferentially and the depth was 5 x 5 cm and 1 cm in depth. We removed nonviable fatty tissue slough and eschar. Description of Procedure: With the patient spine position, under benefit of IV sedation, we prepped and draped in standard fashion. We first used a curette and then used a scalpel to excise any nonviable grayish slough, eschar and nonviable fatty tissue. This took us directly down to the fascia and circumferentially to what appeared to be viable adipose circumferentially. Hemostasis was accomplished with direct pressure. Silver alginate and gauze dressings were applied as well as an Rudolph wrap. The patient tolerated the procedure well and was taken recovery area in stable condition.
[2021-05-20 12:41] LABS: Glucose,Whole Blood 179 mg/dL (75-99)
[2021-05-20] MEDS ORDERED: HYDROcodone/APAP 5-325MG 1 EACH TAB ONE (12:43)
[2021-05-20] MEDS: MORPHINE SULFATE 4 MG/ML SYRINGE ONE ×3 (12:50→13:10)
[2021-05-20] MEDS ORDERED: ONDANSETRON 4 MG/2 ML VIAL ONE (13:09)
[2021-05-20 15:53] VITALS: BP 166/70; PULSE 66; RESP 20
== END 2021-05-20 15:55 | disposition home or self-care (01) ==
LOC: OR 10:30
PROVIDERS: ATTEND Thoracic Surgery (Cardiothoracic Vascular Surgery)
DX: E11.622 Type 2 diabetes mellitus with other skin ulcer (principal); L97.229 Non-pressure chronic ulcer of left calf with unspecified severity; K21.9 Gastro-esophageal reflux disease without esophagitis; I10 Essential (primary) hypertension; M19.90 Unspecified osteoarthritis, unspecified site; E11.40 Type 2 diabetes mellitus with diabetic neuropathy, unspecified; E11.51 Type 2 diabetes mellitus with diabetic peripheral angiopathy without gangrene; M47.816 Spondylosis without myelopathy or radiculopathy, lumbar region; Z90.49 Acquired absence of other specified parts of digestive tract; F17.200 Nicotine dependence, unspecified, uncomplicated; I83.90 Asymptomatic varicose veins of unspecified lower extremity; Z95.5 Presence of coronary angioplasty implant and graft; Z90.710 Acquired absence of both cervix and uterus; Z98.890 Other specified postprocedural states; N28.9 Disorder of kidney and ureter, unspecified; Z97.2 Presence of dental prosthetic device (complete) (partial); Z98.42 Cataract extraction status, left eye; Z98.41 Cataract extraction status, right eye; Z80.0 Family history of malignant neoplasm of digestive organs; Z83.3 Family history of diabetes mellitus; Z84.1 Family history of disorders of kidney and ureter; Z79.84 Long term (current) use of oral hypoglycemic drugs; Z79.82 Long term (current) use of aspirin; Z79.4 Long term (current) use of insulin; Z79.899 Other long term (current) drug therapy; Z88.0 Allergy status to penicillin; Z88.2 Allergy status to sulfonamides; Z88.3 Allergy status to other anti-infective agents; Z91.040 Latex allergy status
CPT/HCPCS: 11043; 11046; J2250; J2270; J1100; J2405; J3010; J1170; J2704; J1790

== ENCOUNTER 2021-06-17 10:00 | Inpatient (IN) | payer MEDICARE ==
[2021-06-17 10:18] LABS: Glucose,Whole Blood 367 mg/dL (75-99)
[2021-06-17] MEDS ORDERED: MORPHINE SULFATE 2 MG/ML SYRINGE IVP STA (10:27)
[2021-06-17] MEDS ORDERED: SODIUM CHLORIDE 0.9% 1,000 ML IV STA (10:27)
[2021-06-17 11:16] LABS: Basophils % (A) 0 %; Eosinophils # (A) 0.2 k/uL (0-0.7); Eosinophils % (A) 2 %; HCT 27.4 % (34.0-46.0); HGB 8.7 gm/dL (11.4-16.0); Hypochromasia Slight; Lymphocytes # (A) 1.5 k/uL (1.0-4.8); Lymphocytes % (A) 15 %; MCH 31.1 pg (25.0-35.0); MCHC 31.7 g/dL (31.0-37.0); Mean Platelet Volume 7.8; Monocytes # (A) 0.6 k/uL (0-1.0); Monocytes % (A) 6 %; Neutrophils # (A) 7.6 k/uL (1.3-7.7); Neutrophils % (A) 74 %; Platelet Count 520 k/uL (150-450); RDW 14.4 % (11.5-15.5); WBC 10.3 k/uL (3.8-10.6)
[2021-06-17 11:31] LABS: Albumin 3.6 g/dL (3.5-5.0); Calcium 9.5 mg/dL (8.4-10.2); Magnesium 2.3 mg/dL (1.6-2.3); Potassium 4.9 mmol/L (3.5-5.1); Total Bilirubin 0.6 mg/dL (0.2-1.3); Total Protein 6.7 g/dL (6.3-8.2)
--- NOTE | 2021-06-17 11:35 | XR ---
EXAMINATION TYPE: XR tibia fibula LT DATE OF EXAM: 06/17/2021 COMPARISON: NONE HISTORY: Pain TECHNIQUE: Two views are submitted. FINDINGS: There is a large soft tissue wound along the medial margin of the tibia. Diffuse osteopenia with ther e is arthropathy of the knee joint. No acute fracture. Soft tissue calcifications are seen. No destru ctive changes. IMPRESSION: 1. Large ulceration or soft tissue wound along the medial margin of the left lower extremity. No dest ructive osseous changes.
--- NOTE | 2021-06-17 11:37 | XR ---
EXAMINATION TYPE: XR foot complete LT DATE OF EXAM: 06/17/2021 COMPARISON: NONE HISTORY: Swelling TECHNIQUE: Three views are submitted. FINDINGS: The osseous structures are intact. There is no acute fracture or dislocation. Diffuse osteopenia w ith arthropathy of the MTP, PIP and DIP joints. Soft tissue calcifications are seen adjacent to the d istal tibia. There is soft tissue edema. IMPRESSION: 1. Diffuse osteopenia and soft tissue edema. No destructive changes seen to suggest osteomyelitis.
[2021-06-17] MEDS ORDERED: SODIUM CHLORIDE 0.9% 500 ML 500 ML IV ONE (11:51)
[2021-06-17] MEDS ORDERED: VANCOMYCIN IV PER PHARMACY 1 EACH MISC MISCELLANE PRN (11:53)
[2021-06-17] MEDS ORDERED: VANCOMYCIN 1,500 MG in SODIUM CHLORIDE 0.9% 250 ML IVPB STA (11:58)
[2021-06-17 12:00] LABS: INR 0.9 (<1.2); Prothrombin Time 9.7 sec (9.0-12.0)
[2021-06-17 12:03] LABS: Partial Thromboplastin Time 20.9 sec (22.0-30.0)
[2021-06-17 13:15] LABS: Appearance,Urine Cloudy (Clear); Bacteria,Urine Many /hpf; Bilirubin,Urine Negative (Negative); Blood,Urine Moderate (Negative); Color,Urine Light Yellow; Glucose,Urine (UA) 4+ (Negative); Ketones,Urine Negative (Negative); Leukocyte Esterase,Urine Negative (Negative); Nitrite,Urine Negative (Negative); Protein,Urine Negative (Negative); RBC,Urine 1 /hpf (0-5); Specific Gravity,Urine 1.008 (1.001-1.035); Squamous Epithelial Cell,Urine 15 /hpf (0-4); Urobilinogen,Urine <2.0 mg/dL (<2.0); WBC,Urine 2 /hpf (0-5)
[2021-06-17] MEDS ORDERED: ACETAMINOPHEN TAB 325 MG TAB PO PRN (13:16)
[2021-06-17] MEDS ORDERED: NALOXONE 0.4 MG/ML 1 ML VIAL IV PRN ×2 (13:16→15:08)
--- NOTE | 2021-06-17 13:22 | ED ---
General Adult HPI - General Chief complaint: Weakness Stated complaint: foot/leg pain, high blood sugar Time Seen by Provider: 06/17/21 10:10 Source: patient, RN notes reviewed, old records reviewed Mode of arrival: wheelchair Limitations: no limitations - History of Present Illness Initial comments: 80-year-old female presenting for evaluation of pain in the left lower extremity. Patient has had a nonhealing wound for many months. She is following at the wound center. She is not currently on antibiotics. She's had increased pain in her left heel and at the site of the ulceration on her mid calf left lower extremity. She denies fever. She states she does have history of hypertension and took her antihypertensive medications this morning. Pain is severe enough that she cannot ambulate on this extremity. - Related Data Home Medications Medication Instructions Recorded Confirmed Insulin Glargine [Lantus] 8 unit SQ HS 04/26/14 06/17/21 metFORMIN HCL [Glucophage] 500 mg PO AC-BRKFST 04/26/14 06/17/21 Aspirin EC [Ecotrin Low Dose] 81 mg PO DAILY 05/08/18 06/17/21 INSULIN ASPART (NovoLOG) [NovoLOG 5 - 12 unit SQ AC-TID 05/08/18 06/17/21 (formulary)] Pantoprazole Sodium 40 mg PO DAILY 05/08/18 06/17/21 gemfibroziL [Lopid] 600 mg PO AC-BID 05/08/18 06/17/21 Cholecalciferol [Vitamin D3 (25 2,000 unit PO DAILY 06/08/19 06/17/21 Mcg = 1000 Iu)] Cyanocobalamin (Vitamin B-12) 2,000 mcg PO DAILY 06/08/19 06/17/21 [Vitamin B-12] Famotidine [Pepcid] 20 mg PO HS 06/08/19 06/17/21 Ferrous Sulfate [Feosol] 325 mg PO DAILY 06/08/19 06/17/21 Flaxseed Oil 1,000 mg PO BID 06/08/19 06/17/21 L.acidoph,Paracasei, B.lactis 1 cap PO DAILY 06/08/19 06/17/21 [Probiotic] Acetaminophen [Tylenol Extra 1,500 mg PO Q6H PRN 03/30/21 06/17/21 Strength] Ascorbic Acid [Vitamin C] 1,000 mg PO DAILY 03/30/21 06/17/21 Furosemide [Lasix] 40 mg PO DAILY 03/30/21 06/17/21 hydroCHLOROthiazide [Hydrodiuril] 25 mg PO DAILY 03/30/21 06/17/21 ALPRAZolam [Xanax] 0.25 mg PO DAILY PRN 06/17/21 06/17/21 Canagliflozin [Invokana] 100 mg PO DAILY 06/17/21 06/17/21 Carvedilol [Coreg] 6.25 mg PO BID 06/17/21 06/17/21 Fluticasone Nasal [place] [Flonase 1 spray EA NOSTRIL DAILY PRN 06/17/21 06/17/21 Nasal [place]] Losartan Potassium [Cozaar] 25 mg PO DAILY 06/17/21 06/17/21 Pregabalin [Lyrica] 75 mg PO BID 06/17/21 06/17/21 Allergies Allergy/AdvReac Type Severity Reaction Status Date / Time bacitracin Allergy Unknown Verified 06/17/21 10:08 [From Neosporin ([id number])] bacitracin zinc Allergy Unknown Verified 06/17/21 10:08 [From Neosporin ([id number])] latex Allergy Rash/Hives Verified 06/17/21 10:08 neomycin sulfate Allergy Unknown Verified 06/17/21 10:08 [From Neosporin ([id number])] polymyxin B Allergy Unknown Verified 06/17/21 10:08 [From Neosporin ([id number])] Penicillins AdvReac Rash & Verified 06/17/21 10:08 Fatigue Sulfa (Sulfonamide AdvReac Rash & Verified 06/17/21 10:08 Antibiotics) Fatigue Review of Systems ROS Statement: Those systems with pertinent positive or pertinent negative responses have been documented in the HPI. ROS Other: All systems not noted in ROS Statement are negative. Past Medical History Past Medical History: Diabetes Mellitus, GERD/Reflux, Hypertension, Osteoarthritis (OA), Skin Disorder, Syncope, Vascular Disorder Additional Past Medical History / Comment(s): Arthritis in lower back. Poor circulation in legs, wound left lower leg calf area w/ pain, neuropathy in feet, goes to Wound Center. Edema bilateral lower extremities, wears TEDS on right leg. Shortness of breath.shortness of breath History of Any Multi-Drug Resistant Organisms: None Reported Past Surgical History: Appendectomy, Breast Surgery, Ear Surgery, Heart Catheterization, Heart Catheterization With Stent, Hysterectomy Additional Past Surgical History / Comment(s): Varicose vein stripping left leg, left ear myringotomy/tubes, colonoscopy, left breast biopsy, bilateral cataracts, left leg wound debridement. Past Anesthesia/Blood Transfusion Reactions: No Reported Reaction Date of Last Stent Placement:: 11/26 Past Psychological History: No Psychological Hx Reported Smoking Status: Former smoker Past Alcohol Use History: Rare Past Drug Use History: None Reported - Past Family History Father Family Medical History: Cancer Additional Family Medical History / Comment(s): COLON CANCER. Mother Family Medical History: Diabetes Mellitus, Renal Disease Additional Family Medical History / Comment(s): RENAL FAILURE. Brother(s) Family Medical History: Cancer Additional Family Medical History / Comment(s): 3 brothers - 2 had stomach cancer, 1 had esophagueal cancer. General Exam Limitations: no limitations General appearance: alert, in no apparent distress Head exam: Present: atraumatic, normocephalic Eye exam: Present: normal appearance, PERRL ENT exam: Present: normal exam Neck exam: Present: normal inspection Respiratory exam: Present: normal lung sounds bilaterally. Absent: respiratory distress, wheezes Cardiovascular Exam: Present: regular rate, normal rhythm GI/Abdominal exam: Present: soft. Absent: distended, tenderness, guarding Extremities exam: Present: other (Left leg is erythematous, warm to the touch. There is a nonhealing wound in the medial mid left calf. There is tenderness to palpation over the calcaneus and small ulceration on the base of the heel.) Neurological exam: Present: alert, oriented X3 Psychiatric exam: Present: normal affect, normal mood Skin exam: Present: warm, dry Course Vital Signs 06/17/21 06/17/21 10:01 11:05 Temperature 97.2 F L Pulse Rate 64 66 Respiratory 18 16 Rate Blood Pressure 71/52 99/80 O2 Sat by Pulse 100 95 Oximetry EKG Findings - EKG Comments: EKG Findings:: EKG: Sinus rhythm ventricular rate is 68, NJ interval 162, QRS duration 83, QTC 453, no ST segment elevation Procedures - Sepsis Sepsis Focused Exam #1 Sepsis Focused Exam Date: 06/17/21 Sepsis Focused Exam Time: 13:22 Capillary Refill: < 2 Seconds: Fingers, Toes Peripheral Pulses: Strong: Radial (R), Radial (L) Skin Color: Normal for Patient Respiratory Exam: normal lung sounds Cardiovascular Exam: regular rate, normal rhythm Medical Decision Making - Medical Decision Making 80-year-old female with nonhealing wound to the left lower extremity, surrounding cellulitis. Patient is initially hypotensive although she did take her antihypertensive medication this morning. She started on IV fluid. She has a normal white blood cell count. She has anemia 8.7. She has high lactic acid 6.1 which I suspect is a combination of both infection and dehydration. This level will be repeated after IV hydration. She started on ceftriaxone and vancomycin in the emergency department. X-rays will be obtained. She will be admitted to internal medicine, [facility], Konrad is aware with vascular surgery on consultation. - Lab Data Result diagrams: 06/17/21 10:53 06/17/21 10:53 Lab Results 06/17/21 06/17/21 06/17/21 Range/Units 10:16 10:53 10:53 WBC 10.3 (3.8-10.6) k/uL RBC 2.80 L (3.80-5.40) m/uL Hgb 8.7 L (11.4-16.0) gm/dL Hct 27.4 L (34.0-46.0) % MCV 98.0 (80.0-100.0) fL MCH 31.1 (25.0-35.0) pg MCHC 31.7 (31.0-37.0) g/dL RDW 14.4 (11.5-15.5) % Plt Count 520 H (150-450) k/uL MPV 7.8 Neutrophils % 74 % Lymphocytes % 15 % Monocytes % 6 % Eosinophils % 2 % Basophils % 0 % Neutrophils # 7.6 (1.3-7.7) k/uL Lymphocytes # 1.5 (1.0-4.8) k/uL Monocytes # 0.6 (0-1.0) k/uL Eosinophils # 0.2 (0-0.7) k/uL Basophils # 0.0 (0-0.2) k/uL Hypochromasia Slight PT 9.7 (9.0-12.0) sec INR 0.9 (<1.2) APTT 20.9 L (22.0-30.0) sec Sodium (137-145) mmol/L Potassium (3.5-5.1) mmol/L Chloride (98-107) mmol/L Carbon Dioxide (22-30) mmol/L Anion Gap mmol/L BUN (7-17) mg/dL Creatinine (0.52-1.04) mg/dL Est GFR (CKD-EPI)AfAm (>60 ml/min/1.73 sqM) Est GFR (CKD-EPI)NonAf (>60 ml/min/1.73 sqM) Glucose (74-99) mg/dL POC Glucose (mg/dL) 367 H (75-99) mg/dL POC Glu [employer] Alexis Fitzgerald Nicole Lactic Ac Sepsis Rflx Plasma Lactic Acid Cody (0.7-2.0) mmol/L Calcium (8.4-10.2) mg/dL Magnesium (1.6-2.3) mg/dL Total Bilirubin (0.2-1.3) mg/dL AST (14-36) U/L ALT (4-34) U/L Alkaline Phosphatase (38-126) U/L Troponin I (0.000-0.034) ng/mL Total Protein (6.3-8.2) g/dL Albumin (3.5-5.0) g/dL Urine Color Urine Appearance (Clear) Urine pH (5.0-8.0) Ur Specific [place] (1.001-1.035) Urine Protein (Negative) Urine Glucose (UA) (Negative) Urine Ketones (Negative) Urine Blood (Negative) Urine Nitrite (Negative) Urine Bilirubin (Negative) Urine Urobilinogen (<2.0) mg/dL Ur Leukocyte Esterase (Negative) Urine RBC (0-5) /hpf Urine WBC (0-5) /hpf Ur Squamous Epith Cells (0-4) /hpf Urine Bacteria (None) /hpf 06/17/21 06/17/21 06/17/21 Range/Units 10:53 10:53 10:53 WBC (3.8-10.6) k/uL RBC (3.80-5.40) m/uL Hgb (11.4-16.0) gm/dL Hct (34.0-46.0) % MCV (80.0-100.0) fL MCH (25.0-35.0) pg MCHC (31.0-37.0) g/dL RDW (11.5-15.5) % Plt Count (150-450) k/uL MPV Neutrophils % % Lymphocytes % % Monocytes % % Eosinophils % % Basophils % % Neutrophils # (1.3-7.7) k/uL Lymphocytes # (1.0-4.8) k/uL Monocytes # (0-1.0) k/uL Eosinophils # (0-0.7) k/uL Basophils # (0-0.2) k/uL Hypochromasia PT (9.0-12.0) sec INR (<1.2) APTT (22.0-30.0) sec Sodium 135 L (137-145) mmol/L Potassium 4.9 (3.5-5.1) mmol/L Chloride 98 (98-107) mmol/L Carbon Dioxide 22 (22-30) mmol/L Anion Gap 15 mmol/L BUN 69 H (7-17) mg/dL Creatinine 1.66 H (0.52-1.04) mg/dL Est GFR (CKD-EPI)AfAm 33 (>60 ml/min/1.73 sqM) Est GFR (CKD-EPI)NonAf 29 (>60 ml/min/1.73 sqM) Glucose 296 H (74-99) mg/dL POC Glucose (mg/dL) (75-99) mg/dL POC Glu [employer]visor [employer] ID Lactic Ac Sepsis Rflx Plasma Lactic Acid [place] 6.1 H* (0.7-2.0) mmol/L Calcium 9.5 (8.4-10.2) mg/dL Magnesium 2.3 (1.6-2.3) mg/dL Total Bilirubin 0.6 (0.2-1.3) mg/dL AST 16 (14-36) U/L ALT 10 (4-34) U/L Alkaline Phosphatase 98 (38-126) U/L Troponin I (0.000-0.034) ng/mL Total Protein 6.7 (6.3-8.2) g/dL Albumin 3.6 (3.5-5.0) g/dL Urine Color Light Yellow Urine Appearance Cloudy H (Clear) Urine pH 6.0 (5.0-8.0) Ur Specific [place] 1.008 (1.001-1.035) Urine Protein Negative (Negative) Urine Glucose (UA) 4+ H (Negative) Urine Ketones Negative (Negative) Urine Blood Moderate H (Negative) Urine Nitrite Negative (Negative) Urine Bilirubin Negative (Negative) Urine Urobilinogen <2.0 (<2.0) mg/dL Ur Leukocyte Esterase Negative (Negative) Urine RBC 1 (0-5) /hpf Urine WBC 2 (0-5) /hpf Ur Squamous Epith Cells 15 H (0-4) /hpf Urine Bacteria Many H (None) /hpf 06/17/21 06/17/21 Range/Units 10:53 11:51 WBC (3.8-10.6) k/uL RBC (3.80-5.40) m/uL Hgb (11.4-16.0) gm/dL Hct (34.0-46.0) % MCV (80.0-100.0) fL MCH (25.0-35.0) pg MCHC (31.0-37.0) g/dL RDW (11.5-15.5) % Plt Count (150-450) k/uL MPV Neutrophils % % Lymphocytes % % Monocytes % % Eosinophils % % Basophils % % Neutrophils # (1.3-7.7) k/uL Lymphocytes # (1.0-4.8) k/uL Monocytes # (0-1.0) k/uL Eosinophils # (0-0.7) k/uL Basophils # (0-0.2) k/uL Hypochromasia PT (9.0-12.0) sec INR (<1.2) APTT (22.0-30.0) sec Sodium (137-145) mmol/L Potassium (3.5-5.1) mmol/L Chloride (98-107) mmol/L Carbon Dioxide (22-30) mmol/L Anion Gap mmol/L BUN (7-17) mg/dL Creatinine (0.52-1.04) mg/dL Est GFR (CKD-EPI)AfAm (>60 ml/min/1.73 sqM) Est GFR (CKD-EPI)NonAf (>60 ml/min/1.73 sqM) Glucose (74-99) mg/dL POC Glucose (mg/dL) (75-99) mg/dL POC Glu [employer]visor [employer] ID Lactic Ac Sepsis Rflx Y Plasma Lactic Acid [place] (0.7-2.0) mmol/L Calcium (8.4-10.2) mg/dL Magnesium (1.6-2.3) mg/dL Total Bilirubin (0.2-1.3) mg/dL AST (14-36) U/L ALT (4-34) U/L Alkaline Phosphatase (38-126) U/L Troponin I <0.012 (0.000-0.034) ng/mL Total Protein (6.3-8.2) g/dL Albumin (3.5-5.0) g/dL Urine Color Urine Appearance (Clear) Urine pH (5.0-8.0) Ur Specific [place] (1.001-1.035) Urine Protein (Negative) Urine Glucose (UA) (Negative) Urine Ketones (Negative) Urine Blood (Negative) Urine Nitrite (Negative) Urine Bilirubin (Negative) Urine Urobilinogen (<2.0) mg/dL Ur Leukocyte Esterase (Negative) Urine RBC (0-5) /hpf Urine WBC (0-5) /hpf Ur Squamous Epith Cells (0-4) /hpf Urine Bacteria (None) /hpf Disposition Clinical Impression: Diabetic ulcer of left lower leg associated with diabetes mellitus due to underlying condition, with fat layer exposed, Dehydration, Lactic acid acidosis Disposition: ADMITTED IP TO THIS HOSP Condition: Stable Is patient prescribed a controlled substance at d/c from ED?: No
[2021-06-17] MEDS: SODIUM CHLORIDE 0.9% 1,000 ML IV SCH (13:43)
[2021-06-17] MEDS ORDERED: FLUTICASONE 50MCG/SPRAY NASAL 16GM EA NOSTRIL PRN (14:20)
[2021-06-17] MEDS ORDERED: SODIUM CHLORIDE 0.9% 1,000 ML IV ONE (14:39)
[2021-06-17] MEDS: HYDROmorphone 0.5 MG/0.5 ML SYRINGE IVP PRN ×3 (15:20→21:25)
--- NOTE | 2021-06-17 15:32 | P.CNPUL ---
History of Present Illness Consult date: 06/17/21 Requesting physician: Rachelle Pardo Reason for consult: other Chief complaint: Sepsis. History of present illness: Pulmonary consult dated 06/17/2021. 80-year-old female, seen in the emergency department. He was in ER room 3. We were consulted because of possible sepsis, from a left leg ulcer. She is a very large ulcer on the medial aspect of her left mid leg. The patient has had debridement, by Dr. Triana and Dr. Herrera. The patient comes into the emergency room, because of weakness. She has a low blood pressure. She is a lactic acid is 6. The primary service was concerned about sepsis. The patient is also complaining about left foot pain, numbness in her left foot, and eleva jimmy blood sugar. The ulcer on the medial left leg, has been present for many months, and has gotten worse. There is no fever or chills. The patient has a history of diabetes, hyperlipidemia, hypertension, GERD, osteoarthritis, peripheral vascular occlusive disease, diabetic neuropathy, CAD, with previous heart catheterization and stent placement. White count 10.3, hemoglobin 8.7, hematocrit 27.4, and platelet count 520,000. Sodium 135, potassium 4.9, chlorides 98, CO2 22, anion gap 15, BUN 69, and creatinine 1.66. Lactic acid is 6.1. Urine is light yellow and cloudy. There is moderate blood. There is 4+ glucose. There is many bacteria. The patient is not having any urinary tract s ymptoms. X-rays of the leg and foot, showed only soft tissue changes. The patient is currently on Rocephin and vancomycin. Blood pressure has been only in the mid 70s, systolic. Review of Systems REVIEW OF SYSTEMS: CONSTITUTIONAL: Weakness. NEUROLOGIC: [ Negative.] HEENT: [ Negative.] CARDIAC: [Negative.] PULMONARY: [Negative.] GI: [Negative.] : [Negative.] RHEUMATOLOGIC: [ Negative.] IMMUNOLOGIC: [ Negative.] ENDOCRINE: [Negative. ] DERMATOLOGIC: Nonhealing left leg ulcer, progressive. Past Medical History Past Medical History: Diabetes Mellitus, GERD/Reflux, Hypertension, Osteoarthritis (OA), Skin Disorder, Syncope, Vascular Disorder Additional Past Medical History / Comment(s): Arthritis in lower back. Poor circulation in legs, wound left lower leg calf area w/ pain, neuropathy in feet, goes to [facility]. Edema bilateral lower extremities, wears TEDS on right leg. Shortness of breath.shortness of breath History of Any Multi-Drug Resistant Organisms: None Reported Past Surgical History: Appendectomy, Breast Surgery, Ear Surgery, Heart Catheterization, Heart Catheterization With Stent, Hysterectomy Additional Past Surgical History / Comment(s): Varicose vein stripping left leg, left ear myringotomy/tubes, colonoscopy, left breast biopsy, bilateral cataracts, left leg wound debridement. Past Anesthesia/Blood Transfusion Reactions: No Reported Reaction Date of Last Stent Placement:: 11/26 Past Psychological History: No Psychological Hx Reported Smoking Status: Former smoker Past Alcohol Use History: Rare Past Drug Use History: None Reported - Past Family History Father Family Medical History: Cancer Additional Family Medical History / Comment(s): COLON CANCER. Mother Family Medical History: Diabetes Mellitus, Renal Disease Additional Family Medical History / Comment(s): RENAL FAILURE. Brother(s) Family Medical History: Cancer Additional Family Medical History / Comment(s): 3 brothers - 2 had stomach cancer, 1 had esophagueal cancer. Medications and Allergies Home Medications Medication Instructions Recorded Confirmed Type Insulin Glargine [Lantus] 8 unit SQ HS 04/26/14 06/17/21 History metFORMIN HCL [Glucophage] 500 mg PO AC-BRKFST 04/26/14 06/17/21 History Aspirin EC [Ecotrin Low Dose] 81 mg PO DAILY 05/08/18 06/17/21 History INSULIN ASPART (NovoLOG) [NovoLOG 5 - 12 unit SQ AC-TID 05/08/18 06/17/21 History (formulary)] Pantoprazole Sodium 40 mg PO DAILY 05/08/18 06/17/21 History gemfibroziL [Lopid] 600 mg PO AC-BID 05/08/18 06/17/21 History Cholecalciferol [Vitamin D3 (25 2,000 unit PO DAILY 06/08/19 06/17/21 History Mcg = 1000 Iu)] Cyanocobalamin (Vitamin B-12) 2,000 mcg PO DAILY 06/08/19 06/17/21 History [Vitamin B-12] Famotidine [Pepcid] 20 mg PO HS 06/08/19 06/17/21 History Ferrous Sulfate [Feosol] 325 mg PO DAILY 06/08/19 06/17/21 History Flaxseed Oil 1,000 mg PO BID 06/08/19 06/17/21 History L.acidoph,Paracasei, B.lactis 1 cap PO DAILY 06/08/19 06/17/21 History [Probiotic] Acetaminophen [Tylenol Extra 1,500 mg PO Q6H PRN 03/30/21 06/17/21 History Strength] Ascorbic Acid [Vitamin C] 1,000 mg PO DAILY 03/30/21 06/17/21 History Furosemide [Lasix] 40 mg PO DAILY 03/30/21 06/17/21 History hydroCHLOROthiazide [Hydrodiuril] 25 mg PO DAILY 03/30/21 06/17/21 History ALPRAZolam [Xanax] 0.25 mg PO DAILY PRN 06/17/21 06/17/21 History Canagliflozin [Invokana] 100 mg PO DAILY 06/17/21 06/17/21 History Carvedilol [Coreg] 6.25 mg PO BID 06/17/21 06/17/21 History Fluticasone Nasal [place] [Flonase 1 spray EA NOSTRIL DAILY PRN 06/17/21 06/17/21 History Nasal [place]] Losartan Potassium [Cozaar] 25 mg PO DAILY 06/17/21 06/17/21 History Pregabalin [Lyrica] 75 mg PO BID 06/17/21 06/17/21 History Allergies Allergy/AdvReac Type Severity Reaction Status Date / Time bacitracin Allergy Unknown Verified 06/17/21 10:08 [From Neosporin ([id number])] bacitracin zinc Allergy Unknown Verified 06/17/21 10:08 [From Neosporin ([id number])] latex Allergy Rash/Hives Verified 06/17/21 10:08 neomycin sulfate Allergy Unknown Verified 06/17/21 10:08 [From Neosporin ([id number])] polymyxin B Allergy Unknown Verified 06/17/21 10:08 [From Neosporin ([id number])] Penicillins AdvReac Rash & Verified 06/17/21 10:08 Fatigue Sulfa (Sulfonamide AdvReac Rash & Verified 06/17/21 10:08 Antibiotics) Fatigue Physical Exam Osteopathic Statement: *. No significant issues noted on an osteopathic structural exam other than those noted in the History and Physical/Consult. Vitals: Vital Signs Temp Pulse Resp BP Pulse Ox 06/17/21 14:00 73/56 95 06/17/21 11:05 66 16 99/80 95 06/17/21 10:01 97.2 F L 64 18 71/52 100 Intake and Output 06/17/21 06/17/21 06/17/21 06:59 14:59 22:59 Other: Weight 83.007 kg No acute distress, oriented 3. No respiratory distress. Room air saturation 95%. HEENT examination is grossly unremarkable. Neck supple. Full range of motion. No adenopathy thyromegaly or neck vein distention. Cardiovascular examination reveals regular rhythm rate. S1-S2 normal. No S3 or S4. No discernible murmur noted. Heart rate 66 bpm heart sounds are distant. Lungs reveal clear breath sounds. Breath sounds are equal bilaterally. No adventitious lung sounds including wheezes rhonchi or crackles. Abdomen soft bowel sounds are heard. No masses or tenderness. Extremities reveal a rather large ulcer, medial left leg. Purulence is noted about the ulcer. Skin is without rash or lesion. Neurologic examination is brief but nonfocal. Results - Laboratory Findings CBC and BMP: 06/17/21 10:53 06/17/21 10:53 PT/INR, D-dimer PT 9.7 sec (9.0-12.0) 06/17/21 10:53 INR 0.9 (<1.2) 06/17/21 10:53 Abnormal lab findings: Abnormal Labs 06/17/21 06/17/21 06/17/21 10:16 10:53 10:53 RBC 2.80 L Hgb 8.7 L Hct 27.4 L Plt Count 520 H APTT 20.9 L Sodium BUN Creatinine Glucose POC Glucose (mg/dL) 367 H Plasma Lactic Acid Cody Urine Appearance Urine Glucose (UA) Urine Blood Ur Squamous Epith Cells Urine Bacteria 06/17/21 06/17/21 06/17/21 10:53 10:53 10:53 RBC Hgb Hct Plt Count APTT Sodium 135 L BUN 69 H Creatinine 1.66 H Glucose 296 H POC Glucose (mg/dL) Plasma Lactic Acid Cody 6.1 H* Urine Appearance Cloudy H Urine Glucose (UA) 4+ H Urine Blood Moderate H Ur Squamous Epith Cells 15 H Urine Bacteria Many H Assessment and Plan Assessment: Sepsis, secondary to a infected left leg ulcer. Lactic acidosis, and hypotension, secondary to sepsis. CAD, status post heart catheterization and stent placement. History of diabetes mellitus, with diabetic neuropathy. Peripheral vascular occlusive disease. History of hyperlipidemia. History of gastroesophageal reflux disease. History of hypertension. Plan: Plan dated 06/17/2021. Patient will be admitted to the intensive care unit, for further monitoring and management. She'll need IV fluid resuscitation, and broad-spectrum antibiotics. She should also have a Doppler of the left lower extremity. Her prognosis is guarded. She does see nurse practitioner Umm Esqueda as a primary, and also sees Dr. Hsu, Dr. Blevins, Dr. Triana, and Dr. Herrera. Time with Patient: Greater than 30
[2021-06-17 15:40] LABS: Calcium 8.8 mg/dL (8.4-10.2); Magnesium 2.3 mg/dL (1.6-2.3); Potassium 4.7 mmol/L (3.5-5.1)
--- NOTE | 2021-06-17 15:45 | P.HPIM ---
History of Present Illness H&P Date: 06/17/21 Chief Complaint: Infected left leg ulcer for severe pain and tenderness 80-year-old female, seen in the emergency department. She presented to the emergency room with a chief complaint of severe left leg pain with infected ulcer. She developed this ulcer and lost January 2021. The patient has had debridement, by Dr. Triana and Dr. Herrera first one on April 12 one on . The patient comes into the emergency room, because of weakness. She has a low blood pressure. She is a lactic acid is 6. The primary service was concerned about sepsis. The patient is also complaining about left foot pain, numbness in her left foot, and elevated blood sugar. The ulcer on the medial left leg, has been present for many months, and has gotten worse. There is no fever or chills. The patient has a history of diabetes, hyperlipidemia, hypertension, GERD, osteoarthritis, peripheral vascular occlusive disease, diabetic neuropathy, CAD, with previous heart catheterization and stent placement. White count 10.3, hemoglobin 8.7, hematocrit 27.4, and platelet count 520,000. Sodium 135, potassium 4.9, chlorides 98, CO2 22, anion gap 15, BUN 69, and creatinine 1.66. Lactic acid is 6.1. Urine is light yellow and cloudy. There is moderate blood. There is 4+ glucose. There is many bacteria. The patient is not having any urinary tract symptoms. X-rays of the leg and foot, showed only soft tissue changes. The patient is received Rocephin and vancomycin in the ER. Blood pressure has been only in the mid 70s, systolic. She is being transferred to ICU.discussed with the clinical laboratory scientist Dr. Comer Review of Systems All 14 review of systems evaluated and all negative except for above. Past Medical History Past Medical History: Diabetes Mellitus, GERD/Reflux, Hypertension, Osteoarthritis (OA), Skin Disorder, Syncope, Vascular Disorder Additional Past Medical History / Comment(s): Arthritis in lower back. Poor circulation in legs, wound left lower leg calf area w/ pain, neuropathy in feet, goes to [facility]. Edema bilateral lower extremities, wears TEDS on right leg. Shortness of breath.shortness of breath History of Any Multi-Drug Resistant Organisms: None Reported Past Surgical History: Appendectomy, Breast Surgery, Ear Surgery, Heart Catheterization, Heart Catheterization With Stent, Hysterectomy Additional Past Surgical History / Comment(s): Varicose vein stripping left leg, left ear myringotomy/tubes, colonoscopy, left breast biopsy, bilateral cataracts, left leg wound debridement. Past Anesthesia/Blood Transfusion Reactions: No Reported Reaction Date of Last Stent Placement:: 11/26 Past Psychological History: No Psychological Hx Reported Smoking Status: Former smoker Past Alcohol Use History: Rare Past Drug Use History: None Reported - Past Family History Father Family Medical History: Cancer Additional Family Medical History / Comment(s): COLON CANCER. Mother Family Medical History: Diabetes Mellitus, Renal Disease Additional Family Medical History / Comment(s): RENAL FAILURE. Brother(s) Family Medical History: Cancer Additional Family Medical History / Comment(s): 3 brothers - 2 had stomach cancer, 1 had esophagueal cancer. Medications and Allergies Home Medications Medication Instructions Recorded Confirmed Type Insulin Glargine [Lantus] 8 unit SQ HS 04/26/14 06/17/21 History metFORMIN HCL [Glucophage] 500 mg PO AC-BRKFST 04/26/14 06/17/21 History Aspirin EC [Ecotrin Low Dose] 81 mg PO DAILY 05/08/18 06/17/21 History INSULIN ASPART (NovoLOG) [NovoLOG 5 - 12 unit SQ AC-TID 05/08/18 06/17/21 History (formulary)] Pantoprazole Sodium 40 mg PO DAILY 05/08/18 06/17/21 History gemfibroziL [Lopid] 600 mg PO AC-BID 05/08/18 06/17/21 History Cholecalciferol [Vitamin D3 (25 2,000 unit PO DAILY 06/08/19 06/17/21 History Mcg = 1000 Iu)] Cyanocobalamin (Vitamin B-12) 2,000 mcg PO DAILY 06/08/19 06/17/21 History [Vitamin B-12] Famotidine [Pepcid] 20 mg PO HS 06/08/19 06/17/21 History Ferrous Sulfate [Feosol] 325 mg PO DAILY 06/08/19 06/17/21 History Flaxseed Oil 1,000 mg PO BID 06/08/19 06/17/21 History L.acidoph,Paracasei, B.lactis 1 cap PO DAILY 06/08/19 06/17/21 History [Probiotic] Acetaminophen [Tylenol Extra 1,500 mg PO Q6H PRN 03/30/21 06/17/21 History Strength] Ascorbic Acid [Vitamin C] 1,000 mg PO DAILY 03/30/21 06/17/21 History Furosemide [Lasix] 40 mg PO DAILY 03/30/21 06/17/21 History hydroCHLOROthiazide [Hydrodiuril] 25 mg PO DAILY 03/30/21 06/17/21 History ALPRAZolam [Xanax] 0.25 mg PO DAILY PRN 06/17/21 06/17/21 History Canagliflozin [Invokana] 100 mg PO DAILY 06/17/21 06/17/21 History Carvedilol [Coreg] 6.25 mg PO BID 06/17/21 06/17/21 History Fluticasone Nasal [place] [Flonase 1 spray EA NOSTRIL DAILY PRN 06/17/21 06/17/21 History Nasal [place]] Losartan Potassium [Cozaar] 25 mg PO DAILY 06/17/21 06/17/21 History Pregabalin [Lyrica] 75 mg PO BID 06/17/21 06/17/21 History Allergies Allergy/AdvReac Type Severity Reaction Status Date / Time bacitracin Allergy Unknown Verified 06/17/21 10:08 [From Neosporin ([id number])] bacitracin zinc Allergy Unknown Verified 06/17/21 10:08 [From Neosporin ([id number])] latex Allergy Rash/Hives Verified 06/17/21 10:08 neomycin sulfate Allergy Unknown Verified 06/17/21 10:08 [From Neosporin ([id number])] polymyxin B Allergy Unknown Verified 06/17/21 10:08 [From Neosporin ([id number])] Penicillins AdvReac Rash & Verified 06/17/21 10:08 Fatigue Sulfa (Sulfonamide AdvReac Rash & Verified 06/17/21 10:08 Antibiotics) Fatigue Physical Exam Vitals: Vital Signs Temp Pulse Resp BP Pulse Ox 06/17/21 14:00 73/56 95 06/17/21 11:05 66 16 99/80 95 06/17/21 10:01 97.2 F L 64 18 71/52 100 Intake and Output 06/17/21 06/17/21 06/17/21 06:59 14:59 22:59 Other: Weight 83.007 kg General: non toxic, no distress, appears at stated age Derm: warm, dry Head: atraumatic, normocephalic, symmetric Eyes: EOMI, no lid lag, anicteric sclera Mouth: no lip lesion, mucus membranes moist Cardiovascular: S1S2 reg, no murmur, positive posterior tibial pulse bilateral, Lungs: CTA bilateral, no rhonchi, no rales , no accessory muscle use Abdominal: soft, nontender to palpation, no guarding, no appreciable organomegaly Ext: Left leg ulcer 7 x 6 cm deep with necrotic tissue and pus surrounding andrea lulitis and edema. Tender to palpation Neuro: CN II-XI grossly intact, no focal neuro deficits Psych: Alert, oriented, appropriate affect Results CBC & Chem 7: 06/17/21 10:53 06/17/21 10:53 Labs: Abnormal Lab Results - Last 24 Hours (Table) 06/17/21 06/17/21 06/17/21 Range/Units 10:16 10:53 10:53 RBC 2.80 L (3.80-5.40) m/uL Hgb 8.7 L (11.4-16.0) gm/dL Hct 27.4 L (34.0-46.0) % Plt Count 520 H (150-450) k/uL APTT 20.9 L (22.0-30.0) sec Sodium (137-145) mmol/L BUN (7-17) mg/dL Creatinine (0.52-1.04) mg/dL Glucose (74-99) mg/dL POC Glucose (mg/dL) 367 H (75-99) mg/dL Plasma Lactic Acid Cody (0.7-2.0) mmol/L Urine Appearance (Clear) Urine Glucose (UA) (Negative) Urine Blood (Negative) Ur Squamous Epith Cells (0-4) /hpf Urine Bacteria (None) /hpf 06/17/21 06/17/21 06/17/21 Range/Units 10:53 10:53 10:53 RBC (3.80-5.40) m/uL Hgb (11.4-16.0) gm/dL Hct (34.0-46.0) % Plt Count (150-450) k/uL APTT (22.0-30.0) sec Sodium 135 L (137-145) mmol/L BUN 69 H (7-17) mg/dL Creatinine 1.66 H (0.52-1.04) mg/dL Glucose 296 H (74-99) mg/dL POC Glucose (mg/dL) (75-99) mg/dL Plasma Lactic Acid Cody 6.1 H* (0.7-2.0) mmol/L Urine Appearance Cloudy H (Clear) Urine Glucose (UA) 4+ H (Negative) Urine Blood Moderate H (Negative) Ur Squamous Epith Cells 15 H (0-4) /hpf Urine Bacteria Many H (None) /hpf Assessment and Plan Assessment: Assessment and plan: #Infected left leg ulcer with severe sepsis -Patient was found to be hypotensive in the emergency room -Lactic acid 6.1 -Patient being admitted to ICU -IV fluids resuscitation. -IV vancomycin and cefepime -Wound culture -Blood cultures ordered 2 -Consult vascular surgery and infectious disease -MRI of the left Leg to rule out osteomyelitis or abscess -Check sed rate and CRP #Severe peripheral vascular disease -Vascular surgery consulted #Severe lactic acidosis -IV fluids -Discontinue metformin -Trend lactic acid level #Hypotension -Secondary to sepsis -Hold antihypertensive medication and diuretics -IV fluids -Admitted to ICU for close monitoring #Coronary disease status post stent -Beta gil and hold due to hypotension -Patient denies any chest pain or shortness of breath #Acute kidney injury -Most likely secondary to hypotension and prerenal azotemia possibly ATN -Hold diuretics and antihypertensive medications -Hydrate the patient -Renal ultrasound to rule out obstructive uropathy -Avoid nephrotoxic agents #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
[2021-06-17 15:57] LABS: Basophils % (A) 0 %; Eosinophils # (A) 0.1 k/uL (0-0.7); Eosinophils % (A) 2 %; HCT 28.4 % (34.0-46.0); HGB 8.6 gm/dL (11.4-16.0); Hypochromasia Marked; Lymphocytes # (A) 1.6 k/uL (1.0-4.8); Lymphocytes % (A) 17 %; MCH 30.8 pg (25.0-35.0); MCHC 30.3 g/dL (31.0-37.0); MCV 101.4 fL (80.0-100.0); Macrocytosis Slight; Mean Platelet Volume 8.2; Monocytes # (A) 0.5 k/uL (0-1.0); Monocytes % (A) 6 %; Neutrophils # (A) 6.6 k/uL (1.3-7.7); Neutrophils % (A) 73 %; Platelet Count 451 k/uL (150-450); RDW 14.1 % (11.5-15.5); WBC 9.1 k/uL (3.8-10.6)
--- NOTE | 2021-06-17 15:59 | US ---
EXAMINATION TYPE: US kidneys/renal and bladder DATE OF EXAM: 06/17/2021 COMPARISON: US 11/28/2018 CLINICAL HISTORY: PRAVIN. PRAVIN EXAM MEASUREMENTS: Right Kidney: 10.4 x 4.0 x 4.7 cm Left Kidney: 9.8 x 5.2 x 4.7 cm Right Kidney: Appeared wnl, no evidence of hydro Left Kidney: Limited views show no evidence of hydro Bladder: Pt has urinary catheter in place IMPRESSION: Limited exam demonstrates no diagnostic evidence of hydronephrosis. Note is made the left kidney is p oorly seen and nondiagnostic. No bladder images are submitted. Patient has a Triana catheter.
[2021-06-17 17:45] LABS: Glucose,Whole Blood 397 mg/dL (75-99)
[2021-06-17] MEDS: INSULIN ASPART (NovoLOG) 100 UNIT/ML VIAL SQ SCH ×2 (18:17→20:09)
[2021-06-17] MEDS: HEPARIN SODIUM,PORCINE/PF 5,000 UNIT/0.5 ML SYRINGE SQ SCH (18:18)
[2021-06-17 20:00] LABS: Glucose,Whole Blood 302 mg/dL (75-99)
[2021-06-17] MEDS: ALPRAZolam 0.25 MG TAB PO PRN (20:09)
[2021-06-17] MEDS: PREGABALIN 75 MG CAP PO SCH (20:09)
[2021-06-17] MEDS: CEFEPIME 2 GM in SODIUM CHLORIDE 0.9% 100 ML IVPB SCH (20:09)
[2021-06-17] MEDS: FAMOTIDINE 20 MG TAB PO SCH (20:09)
[2021-06-17] MEDS ORDERED: NON FORMULARY DRUG (Flaxseed Oil [Flaxseed Oil] 1,000 MG Capsule) PO SCH (21:00)
[2021-06-17 21:26] LABS: Glucose,Whole Blood 178 mg/dL (75-99)
[2021-06-17] MEDS: INSULIN DETEMIR (LEVEMIR) 100 UNIT/ML SYR SQ SCH (21:26)
--- NOTE | 2021-06-17 23:33 | P.CONS ---
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 for the patient to follow at the wound care center patient is presenting to the [facility] ER for evaluation of increasing pain in her left heel and the site of ulceration on her mid cough area patient is having the pain to be sharp 7-8 out of 10 head no radiation patient eventually having increasing swelling redness around the wound area but no significant drainage patient on presentation to the hospital was afebrile patient did have a normal white count she did have elevated sed rate BUN/creatinine was mildly elevated patient did have x-rays of the tibia-fibula largest additional soft tissue wound along the medial margin of the left lower extremity no destructive bony changes x-ray of the foot diffuse osteopenia and soft tissue edema no destructive changes to suggest osteomyelitis patient was started on cefepime and vancomycin infectious was consulted for further management of antibiotic therapy Review of Systems Positive point has been mentioned in the HPI rest of the systems are negative Past Medical History Past Medical History: Diabetes Mellitus, GERD/Reflux, Hypertension, Ost eoarthritis (OA), Skin Disorder, Syncope, Vascular Disorder Additional Past Medical History / Comment(s): Arthritis in lower back. Poor circulation in legs, wound left lower leg calf area w/ pain, neuropathy in feet, goes to Wound Center. Edema bilateral lower extremities, wears TEDS on right leg. Shortness of breath.shortness of breath History of Any Multi-Drug Resistant Organisms: None Reported Past Surgical History: Appendectomy, Breast Surgery, Ear Surgery, Heart Catheterization, Heart Catheterization With Stent, Hysterectomy Additional Past Surgical History / Comment(s): Varicose vein stripping left leg, left ear myringotomy/tubes, colonoscopy, left breast biopsy, bilateral cataracts, left leg wound debridement. Past Anesthesia/Blood Transfusion Reactions: No Reported Reaction Date of Last Stent Placement:: 11/26 Past Psychological History: No Psychological Hx Reported Smoking Status: Former smoker Past Alcohol Use History: Rare Past Drug Use History: None Reported - Past Family History Father Family Medical History: Cancer Additional Family Medical History / Comment(s): COLON CANCER. Mother Family Medical History: Diabetes Mellitus, Renal Disease Additional Family Medical History / Comment(s): RENAL FAILURE. Brother(s) Family Medical History: Cancer Additional Family Medical History / Comment(s): 3 brothers - 2 had stomach cancer, 1 had esophagueal cancer. Medications and Allergies Home Medications Medication Instructions Recorded Confirmed Type Insulin Glargine [Lantus] 8 unit SQ HS 04/26/14 06/17/21 History metFORMIN HCL [Glucophage] 500 mg PO AC-BRKFST 04/26/14 06/17/21 History Aspirin EC [Ecotrin Low Dose] 81 mg PO DAILY 05/08/18 06/17/21 History INSULIN ASPART (NovoLOG) [NovoLOG 5 - 12 unit SQ AC-TID 05/08/18 06/17/21 History (formulary)] Pantoprazole Sodium 40 mg PO DAILY 05/08/18 06/17/21 History gemfibroziL [Lopid] 600 mg PO AC-BID 05/08/18 06/17/21 History Cholecalciferol [Vitamin D3 (25 2,000 unit PO DAILY 06/08/19 06/17/21 History Mcg = 1000 Iu)] Cyanocobalamin (Vitamin B-12) 2,000 mcg PO DAILY 06/08/19 06/17/21 History [Vitamin B-12] Famotidine [Pepcid] 20 mg PO HS 06/08/19 06/17/21 History Ferrous Sulfate [Feosol] 325 mg PO DAILY 06/08/19 06/17/21 History Flaxseed Oil 1,000 mg PO BID 06/08/19 06/17/21 History L.acidoph,Paracasei, B.lactis 1 cap PO DAILY 06/08/19 06/17/21 History [Probiotic] Acetaminophen [Tylenol Extra 1,500 mg PO Q6H PRN 03/30/21 06/17/21 History Strength] Ascorbic Acid [Vitamin C] 1,000 mg PO DAILY 03/30/21 06/17/21 History Furosemide [Lasix] 40 mg PO DAILY 03/30/21 06/17/21 History hydroCHLOROthiazide [Hydrodiuril] 25 mg PO DAILY 03/30/21 06/17/21 History ALPRAZolam [Xanax] 0.25 mg PO DAILY PRN 06/17/21 06/17/21 History Canagliflozin [Invokana] 100 mg PO DAILY 06/17/21 06/17/21 History Carvedilol [Coreg] 6.25 mg PO BID 06/17/21 06/17/21 History Fluticasone Nasal [place] [Flonase 1 spray EA NOSTRIL DAILY PRN 06/17/21 06/17/21 History Nasal [place]] Losartan Potassium [Cozaar] 25 mg PO DAILY 06/17/21 06/17/21 History Pregabalin [Lyrica] 75 mg PO BID 06/17/21 06/17/21 History Allergies Allergy/AdvReac Type Severity Reaction Status Date / Time bacitracin Allergy Unknown Verified 06/17/21 10:08 [From Neosporin ([id number])] bacitracin zinc Allergy Unknown Verified 06/17/21 10:08 [From Neosporin ([id number])] latex Allergy Rash/Hives Verified 06/17/21 10:08 neomycin sulfate Allergy Unknown Verified 06/17/21 10:08 [From Neosporin ([id number]-[id number])] polymyxin B Allergy Unknown Verified 06/17/21 10:08 [From Neosporin ([id number])] Penicillins AdvReac Rash & Verified 06/17/21 10:08 Fatigue Sulfa (Sulfonamide AdvReac Rash & Verified 06/17/21 10:08 Antibiotics) Fatigue Physical Exam Vitals: Vital Signs Temp Pulse Resp BP Pulse Ox 06/17/21 15:54 72 18 113/60 95 06/17/21 14:00 73/56 95 06/17/21 11:05 66 16 99/80 95 06/17/21 10:01 97.2 F L 64 18 71/52 100 Intake and Output 06/17/21 06/17/21 06/17/21 06:59 14:59 22:59 Other: Weight 83.007 kg GENERAL DESCRIPTION: An elderly female lying in bed, no distress. No tachypnea or accessory muscle of respiration use. HEENT: Shows Pallor , no scleral icterus. Oral mucous membrane is dry. No pharyngeal erythema or thrush NECK: Trachea central, no thyromegaly. LUNGS: Unlabored breathing. Clear to auscultation anteriorly. No wheeze or crackle. HEART: S1, S2, regular rate and rhythm. No loud murmur ABDOMEN: Soft, no tenderness , guarding or rigidity, no organomegaly EXTREMITIES: Left lower extremity wound which is currently dressed patient refuses dressing to be taken off, there was no drainage on the dressing SKIN: No rash, no masses palpable. NEUROLOGICAL: The patient is awake, alert, oriented x3, mood and affect normal. Results CBC & Chem 7: 06/17/21 14:39 06/17/21 14:39 Labs: Abnormal Lab Results - Last 24 Hours (Table) 06/17/21 06/17/21 06/17/21 Range/Units 10:16 10:53 10:53 RBC 2.80 L (3.80-5.40) m/uL Hgb 8.7 L (11.4-16.0) gm/dL Hct 27.4 L (34.0-46.0) % MCV (80.0-100.0) fL MCHC (31.0-37.0) g/dL Plt Count 520 H (150-450) k/uL APTT 20.9 L (22.0-30.0) sec Sodium (137-145) mmol/L Carbon Dioxide (22-30) mmol/L BUN (7-17) mg/dL Creatinine (0.52-1.04) mg/dL Glucose (74-99) mg/dL POC Glucose (mg/dL) 367 H (75-99) mg/dL Plasma Lactic Acid Cody (0.7-2.0) mmol/L C-Reactive Protein (<1.0) mg/dL Urine Appearance (Clear) Urine Glucose (UA) (Negative) Urine Blood (Negative) Ur Squamous Epith Cells (0-4) /hpf Urine Bacteria (None) /hpf 06/17/21 06/17/21 06/17/21 Range/Units 10:53 10:53 10:53 RBC (3.80-5.40) m/uL Hgb (11.4-16.0) gm/dL Hct (34.0-46.0) % MCV (80.0-100.0) fL MCHC (31.0-37.0) g/dL Plt Count (150-450) k/uL APTT (22.0-30.0) sec Sodium 135 L (137-145) mmol/L Carbon Dioxide (22-30) mmol/L BUN 69 H (7-17) mg/dL Creatinine 1.66 H (0.52-1.04) mg/dL Glucose 296 H (74-99) mg/dL POC Glucose (mg/dL) (75-99) mg/dL Plasma Lactic Acid Cody 6.1 H* (0.7-2.0) mmol/L C-Reactive Protein (<1.0) mg/dL Urine Appearance Cloudy H (Clear) Urine Glucose (UA) 4+ H (Negative) Urine Blood Moderate H (Negative) Ur Squamous Epith Cells 15 H (0-4) /hpf Urine Bacteria Many H (None) /hpf 06/17/21 06/17/21 Range/Units 14:39 14:39 RBC 2.80 L (3.80-5.40) m/uL Hgb 8.6 L (11.4-16.0) gm/dL Hct 28.4 L (34.0-46.0) % MCV 101.4 H (80.0-100.0) fL MCHC 30.3 L (31.0-37.0) g/dL Plt Count 451 H (150-450) k/uL APTT (22.0-30.0) sec Sodium 134 L (137-145) mmol/L Carbon Dioxide 17 L (22-30) mmol/L BUN 65 H (7-17) mg/dL Creatinine 1.38 H (0.52-1.04) mg/dL Glucose 342 H (74-99) mg/dL POC Glucose (mg/dL) (75-99) mg/dL Plasma Lactic Acid Cody (0.7-2.0) mmol/L C-Reactive Protein 2.0 H (<1.0) mg/dL Urine Appearance (Clear) Urine Glucose (UA) (Negative) Urine Blood (Negative) Ur Squamous Epith Cells (0-4) /hpf Urine Bacteria (None) /hpf Assessment and Plan (1) Leg wound, left Current Visit: Yes Status: Acute Code(s): S81.802A - UNSPECIFIED OPEN WOUND, LEFT LOWER LEG, INITIAL ENCOUNTER SNOMED Code(s): 862047511 Plan: 1patient with chronic nonhealing wound to the left lower extremity in this patient presented to hospital with increasing pain swelling redness and concern for cellulitis apparently the patient did have a chronic wound and has been exposed to antibiotic will need to cover for both gram-positive as well as gram- negative pathogen. 2local wound cultures to guide antibiotic therapy 3vancomycin pharmacy to dose and cefepime will provide adequate initial antibiotic coverage We will follow on clinical condition and cultures to further adjust medication if needed Thank you for this consultation will follow this patient along with you Time with Patient: Greater than 30
[2021-06-18] MEDS: HYDROmorphone 0.5 MG/0.5 ML SYRINGE IVP PRN ×3 (02:15→08:41)
[2021-06-18] MEDS: SODIUM CHLORIDE 0.9% 1,000 ML IV SCH ×4 (02:17→21:24)
[2021-06-18] MEDS: HEPARIN SODIUM,PORCINE/PF 5,000 UNIT/0.5 ML SYRINGE SQ SCH ×4 (02:25→21:23)
[2021-06-18 06:25] LABS: Basophils % (A) 0 %; Eosinophils # (A) 0.3 k/uL (0-0.7); Eosinophils % (A) 3 %; HCT 28.6 % (34.0-46.0); HGB 8.6 gm/dL (11.4-16.0); Hypochromasia Marked; Lymphocytes # (A) 1.9 k/uL (1.0-4.8); Lymphocytes % (A) 19 %; MCH 29.7 pg (25.0-35.0); MCV 99.2 fL (80.0-100.0); Macrocytosis Slight; Mean Platelet Volume 8.5; Monocytes # (A) 0.7 k/uL (0-1.0); Monocytes % (A) 7 %; Neutrophils # (A) 6.9 k/uL (1.3-7.7); Neutrophils % (A) 69 %; Platelet Count 458 k/uL (150-450); RBC 2.88 m/uL (3.80-5.40); RDW 14.2 % (11.5-15.5); WBC 9.9 k/uL (3.8-10.6)
[2021-06-18 06:59] LABS: Albumin 3.2 g/dL (3.5-5.0); Calcium 8.3 mg/dL (8.4-10.2); Magnesium 2.1 mg/dL (1.6-2.3); Potassium 4.5 mmol/L (3.5-5.1); Total Bilirubin 0.5 mg/dL (0.2-1.3); Total Protein 6.3 g/dL (6.3-8.2)
[2021-06-18 07:13] LABS: Glucose,Whole Blood 98 mg/dL (75-99)
--- NOTE | 2021-06-18 08:45 | P.PN ---
Subjective Progress Note Date: 06/18/21 Principal diagnosis: Sepsis. Pulmonary consult dated 06/17/2021. 80-year-old female, seen in the emergency department. He was in ER room 3. We were consulted because of possible sepsis, from a left leg ulcer. She is a very large ulcer on the medial aspect of her left mid leg. The patient has had debridement, by Dr. Triana and Dr. Herrera. The patient comes into the emerg ency room, because of weakness. She has a low blood pressure. She is a lactic acid is 6. The primary service was concerned about sepsis. The patient is also complaining about left foot pain, numbness in her left foot, and elevated blood sugar. The ulcer on the medial left leg, has been present for many months, and has gotten worse. There is no fever or chills. The patient has a history of d iabetes, hyperlipidemia, hypertension, GERD, osteoarthritis, peripheral vascular occlusive disease, diabetic neuropathy, CAD, with previous heart catheterization and stent placement. White count 10.3, hemoglobin 8.7, hematocrit 27.4, and platelet count 520,000. Sodium 135, potassium 4.9, chlorides 98, CO2 22, anion gap 15, BUN 69, and creatinine 1.66. Lactic acid is 6.1. Urine is light yellow and cloudy. There is moderate blood. There is 4+ glucose. There is many bacteria. The patient is not having any urinary tract symptoms. X-rays of the leg and foot, showed only soft tissue changes. The patient is currently on Rocephin and vancomycin. Blood pressure has been only in the mid 70s, systolic. Progress note dated 06/18/2021. The patient is seen in room 254. Yesterday, she was seen in the emergency department. She was admitted to the intensive care unit for possible underlying sepsis. Her initial lactic acid was 6.1. Follow with 1.9. The patient is on room air. She's getting saline at 130 mL an hour. We will ask infectious diseases to see her. She is a very large ulcer on the medial aspect of her left leg. White count 9.9, hemoglobin 8.6, hematocrit 28.6, platelet count 459,000. Sodium 137, potassium 4.5, chlorides 110, CO2 16, anion gap 11, BUN 44, creatinine 1.05. Culture data from the left leg is currently negative or pending. Ultrasound of the kidneys revealed no hydronephrosis. The patient's currently on cefepime and vancomycin. Objective - Vital Signs Vital signs: Vital Signs Temp 97.2 F L 06/17/21 10:01 Pulse 80 06/18/21 06:39 Resp 16 06/18/21 06:39 BP 81/58 06/18/21 06:39 Pulse Ox 95 06/18/21 06:39 Intake & Output 06/17/21 06/18/21 06/18/21 18:59 06:59 18:59 Weight 83.007 kg - Exam No acute distress, oriented 3. No respiratory distress. Room air saturation 95%. HEENT examination is grossly unremarkable. Neck supple. Full range of motion. No adenopathy thyromegaly or neck vein distention. Cardiovascular examination reveals regular rhythm rate. S1-S2 normal. No S3 or S4. No discernible murmur noted. Heart rate 80 bpm heart sounds are distant. Lungs reveal clear breath sounds. Breath sounds are equal bilaterally. No adventitious lung sounds including wheezes rhonchi or crackles. Abdomen soft bowel sounds are heard. No masses or tenderness. Extremities reveal a rather large ulcer, medial left leg. Purulence is noted about the ulcer. Skin is without rash or lesion. Neurologic examination is brief but nonfocal. - Labs CBC & Chem 7: 06/18/21 05:10 06/18/21 05:10 Labs: Abnormal Lab Results - Last 24 Hours (Table) 06/17/21 06/17/21 06/17/21 Range/Units 10:16 10:53 10:53 RBC 2.80 L (3.80-5.40) m/uL Hgb 8.7 L (11.4-16.0) gm/dL Hct 27.4 L (34.0-46.0) % MCV (80.0-100.0) fL MCHC (31.0-37.0) g/dL Plt Count 520 H (150-450) k/uL ESR (0-20) mm/hr APTT 20.9 L (22.0-30.0) sec Sodium (137-145) mmol/L Chloride (98-107) mmol/L Carbon Dioxide (22-30) mmol/L BUN (7-17) mg/dL Creatinine (0.52-1.04) mg/dL Glucose (74-99) mg/dL POC Glucose (mg/dL) 367 H (75-99) mg/dL Plasma Lactic Acid Cody (0.7-2.0) mmol/L Calcium (8.4-10.2) mg/dL C-Reactive Protein (<1.0) mg/dL Albumin (3.5-5.0) g/dL Urine Appearance (Clear) Urine Glucose (UA) (Negative) Urine Blood (Negative) Ur Squamous Epith Cells (0-4) /hpf Urine Bacteria (None) /hpf 06/17/21 06/17/21 06/17/21 Range/Units 10:53 10:53 10:53 RBC (3.80-5.40) m/uL Hgb (11.4-16.0) gm/dL Hct (34.0-46.0) % MCV (80.0-100.0) fL MCHC (31.0-37.0) g/dL Plt Count (150-450) k/uL ESR (0-20) mm/hr APTT (22.0-30.0) sec Sodium 135 L (137-145) mmol/L Chloride (98-107) mmol/L Carbon Dioxide (22-30) mmol/L BUN 69 H (7-17) mg/dL Creatinine 1.66 H (0.52-1.04) mg/dL Glucose 296 H (74-99) mg/dL POC Glucose (mg/dL) (75-99) mg/dL Plasma Lactic Acid Cody 6.1 H* (0.7-2.0) mmol/L Calcium (8.4-10.2) mg/dL C-Reactive Protein (<1.0) mg/dL Albumin (3.5-5.0) g/dL Urine Appearance Cloudy H (Clear) Urine Glucose (UA) 4+ H (Negative) Urine Blood Moderate H (Negative) Ur Squamous Epith Cells 15 H (0-4) /hpf Urine Bacteria Many H (None) /hpf 06/17/21 06/17/21 06/17/21 Range/Units 10:53 14:39 14:39 RBC 2.80 L (3.80-5.40) m/uL Hgb 8.6 L (11.4-16.0) gm/dL Hct 28.4 L (34.0-46.0) % MCV 101.4 H (80.0-100.0) fL MCHC 30.3 L (31.0-37.0) g/dL Plt Count 451 H (150-450) k/uL ESR 84 H (0-20) mm/hr APTT (22.0-30.0) sec Sodium 134 L (137-145) mmol/L Chloride (98-107) mmol/L Carbon Dioxide 17 L (22-30) mmol/L BUN 65 H (7-17) mg/dL Creatinine 1.38 H (0.52-1.04) mg/dL Glucose 342 H (74-99) mg/dL POC Glucose (mg/dL) (75-99) mg/dL Plasma Lactic Acid Cody (0.7-2.0) mmol/L Calcium (8.4-10.2) mg/dL C-Reactive Protein 2.0 H (<1.0) mg/dL Albumin (3.5-5.0) g/dL Urine Appearance (Clear) Urine Glucose (UA) (Negative) Urine Blood (Negative) Ur Squamous Epith Cells (0-4) /hpf Urine Bacteria (None) /hpf 06/17/21 06/17/21 06/17/21 Range/Units 17:44 19:59 21:24 RBC (3.80-5.40) m/uL Hgb (11.4-16.0) gm/dL Hct (34.0-46.0) % MCV (80.0-100.0) fL MCHC (31.0-37.0) g/dL Plt Count (150-450) k/uL ESR (0-20) mm/hr APTT (22.0-30.0) sec Sodium (137-145) mmol/L Chloride (98-107) mmol/L Carbon Dioxide (22-30) mmol/L BUN (7-17) mg/dL Creatinine (0.52-1.04) mg/dL Glucose (74-99) mg/dL POC Glucose (mg/dL) 397 H 302 H 178 H (75-99) mg/dL Plasma Lactic Acid Cody (0.7-2.0) mmol/L Calcium (8.4-10.2) mg/dL C-Reactive Protein (<1.0) mg/dL Albumin (3.5-5.0) g/dL Urine Appearance (Clear) Urine Glucose (UA) (Negative) Urine Blood (Negative) Ur Squamous Epith Cells (0-4) /hpf Urine Bacteria (None) /hpf 06/18/21 06/18/21 Range/Units 05:10 05:10 RBC 2.88 L (3.80-5.40) m/uL Hgb 8.6 L (11.4-16.0) gm/dL Hct 28.6 L (34.0-46.0) % MCV (80.0-100.0) fL MCHC 30.0 L (31.0-37.0) g/dL Plt Count 458 H (150-450) k/uL ESR (0-20) mm/hr APTT (22.0-30.0) sec Sodium (137-145) mmol/L Chloride 110 H (98-107) mmol/L Carbon Dioxide 16 L (22-30) mmol/L BUN 44 H (7-17) mg/dL Creatinine 1.05 H (0.52-1.04) mg/dL Glucose (74-99) mg/dL POC Glucose (mg/dL) (75-99) mg/dL Plasma Lactic Acid Cody (0.7-2.0) mmol/L Calcium 8.3 L (8.4-10.2) mg/dL C-Reactive Protein (<1.0) mg/dL Albumin 3.2 L (3.5-5.0) g/dL Urine Appearance (Clear) Urine Glucose (UA) (Negative) Urine Blood (Negative) Ur Squamous Epith Cells (0-4) /hpf Urine Bacteria (None) /hpf Microbiology - Last 24 Hours (Table) 06/17/21 16:37 Anaerobic Culture - Preliminary Leg - Left 06/17/21 16:37 Wound Culture - Preliminary Leg - Left Assessment and Plan Assessment: Sepsis, secondary to a infected left leg ulcer. Lactic acidosis, and hypotension, secondary to sepsis. CAD, status post heart catheterization and stent placement. History of diabetes mellitus, with diabetic neuropathy. Peripheral vascular occlusive disease. History of hyperlipidemia. History of gastroesophageal reflux disease. History of hypertension. Plan: Plan dated 06/17/2021. Patient will be admitted to the intensive care unit, for further monitoring and management. She'll need IV fluid resuscitation, and broad-spectrum antibiotics. She should also have a Doppler of the left lower extremity. Her prognosis is guarded. She does see nurse practitioner Umm Esqueda as a primary, and also sees Dr. Hsu, Dr. Blevins, Dr. Triana, and Dr. Herrera. Plan dated 06/18/2021. The patient is currently in the intensive care unit. Her blood pressure has been stable. She is on room air. Saturations are excellent. Culture data is pending. She is on cefepime and vancomycin. I've asked infectious diseases to see her. The patient has had debridement of the left leg ulcer, twice, once by the vascular surgeon and once by cardiothoracic surgeon. We will continue to follow. If she remains stable, she could be transferred out of the intensive care unit. Time with Patient: Less than 30
[2021-06-18] MEDS ORDERED: VANCOMYCIN 1,500 MG in SODIUM CHLORIDE 0.9% 250 ML IVPB ONE (10:00)
[2021-06-18] MEDS ORDERED: ONDANSETRON 4 MG/2 ML VIAL IVP PRN (10:11)
[2021-06-18] MEDS: CEFEPIME 2 GM in SODIUM CHLORIDE 0.9% 100 ML IVPB SCH ×2 (10:23→21:23)
[2021-06-18] MEDS: INSULIN ASPART (NovoLOG) 100 UNIT/ML VIAL SQ SCH ×4 (10:26→21:24)
[2021-06-18] MEDS: CYANOCOBALAMIN 500 MCG TAB PO SCH (10:27)
[2021-06-18] MEDS: ASCORBIC ACID 500 MG TAB PO SCH (10:27)
[2021-06-18] MEDS: CHOLECALCIFEROL 25 MCG (1000 IU) TABLET PO SCH (10:27)
[2021-06-18] MEDS: FENOFIBRATE 160 MG TAB PO SCH (10:27)
[2021-06-18] MEDS: FERROUS SULFATE 325 MG TAB PO SCH (10:27)
[2021-06-18] MEDS: ASPIRIN 81 MG PO SCH (10:27)
[2021-06-18] MEDS: PANTOPRAZOLE 40 MG TABLET PO SCH (10:27)
[2021-06-18] MEDS: PREGABALIN 75 MG CAP PO SCH ×2 (10:28→21:24)
[2021-06-18] MEDS: LACTOBACILLUS ACIDOPH & BULGAR 1 EACH PACKET PO SCH (10:28)
[2021-06-18 11:44] LABS: Glucose,Whole Blood 123 mg/dL (75-99)
--- NOTE | 2021-06-18 11:55 | MR ---
EXAMINATION TYPE: MR lower leg LT wo con DATE OF EXAM: 06/18/2021 COMPARISON: None HISTORY: PAIN R/O ABSCESS OR OSTEOMYLITIS Standard multiplanar, multisequence MRI departmental protocol Multiplanar, multisequence images of the left lower extremity were acquired without contrast. FINDINGS: Exam is severely limited on some sequences due to extreme motion artifact. There is diffuse soft tissue edema, skin thickening with a large ulceration or wound involving the medial margin of t he left lower extremity at the level of the midcalf. There is atrophy of the musculature. Arthropathy of the knee joint. No marrow edema is seen to suggest osteomyelitis. Soft tissue calcifications are seen along the dista l margin of the medial left lower extremity. Circumscribed fluid collection is seen. Involvement of t he adjacent musculature along the medial calf not excluded. IMPRESSION: 1. No diagnostic evidence of osteomyelitis. There is a large soft tissue wound or ulceration signific ant soft tissue edema suggestive of cellulitis. No localized fluid or contained abscess identified. T here does appear to be edema within the adjacent medial calf musculature and myositis or involvement of the musculature in the differential diagnosis.
--- NOTE | 2021-06-18 12:09 | P.GSCN ---
History of Present Illness Consult date: 06/18/21 Reason for Consult: Nonhealing ulcer Requesting physician: Hernan Maciel History of present illness: This is an 80-year-old female known to vascular surgical services and has seen both Dr. Triana and Dr. Herrera in the past for debridement to the left lower extremity ulcer. Last debridement was done on 05/20/[address] Herrera. Patient had been following with the wound clinic. Patient presented to the emergency department with overall feeling weak increased redness and pain to the left lower extremity. She was found to have a plasma lactic acid level of 6.1 on admission. She was hypotensive. She was admitted to the ICU for sepsis. Today she is feeling somewhat better. She has been afebrile. No evidence of leukocytosis. She states she also has pain in her heel and it has been difficult to talk. She's had increased swelling of the left lower extremity. He denies any chest pain or shortness of breath. Patient is currently on cefepime and vancomycin Review of Systems 14 point review of systems was completed all pertinent positives and negatives as stated in the HPI Past Medical History Past Medical History: Diabetes Mellitus, GERD/Reflux, Hypertension, Osteoarthritis (OA), Skin Disorder, Syncope, Vascular Disorder Additional Past Medical History / Comment(s): Arthritis in lower back. Poor circulation in legs, wound left lower leg calf area w/ pain, neuropathy in feet, goes to [facility]. Edema bilateral lower extremities, wears TEDS on right leg. Shortness of breath.shortness of breath History of Any Multi-Drug Resistant Organisms: None Reported Past Surgical History: Appendectomy, Breast Surgery, Ear Surgery, Heart Catheterization, Heart Catheterization With Stent, Hysterectomy Additional Past Surgical History / Comment(s): Varicose vein stripping left leg, left ear myringotomy/tubes, colonoscopy, left breast biopsy, bilateral cataracts, left leg wound debridement. Past Anesthesia/Blood Transfusion Reactions: No Reported Reaction Date of Last Stent Placement:: 11/26 Past Psychological History: No Psychological Hx Reported Smoking Status: Former smoker Past Alcohol Use History: Rare Past Drug Use History: None Reported - Past Family History Father Family Medical History: Cancer Additional Family Medical History / Comment(s): COLON CANCER. Mother Family Medical History: Diabetes Mellitus, Renal Disease Additional Family Medical History / Comment(s): RENAL FAILURE. Brother(s) Family Medical History: Cancer Additional Family Medical History / Comment(s): 3 brothers - 2 had stomach cancer, 1 had esophagueal cancer. Medications and Allergies Home Medications Medication Instructions Recorded Confirmed Type Insulin Glargine [Lantus] 8 unit SQ HS 04/26/14 06/17/21 History metFORMIN HCL [Glucophage] 500 mg PO AC-BRKFST 04/26/14 06/17/21 History Aspirin EC [Ecotrin Low Dose] 81 mg PO DAILY 05/08/18 06/17/21 History INSULIN ASPART (NovoLOG) [NovoLOG 5 - 12 unit SQ AC-TID 05/08/18 06/17/21 History (formulary)] Pantoprazole Sodium 40 mg PO DAILY 05/08/18 06/17/21 History gemfibroziL [Lopid] 600 mg PO AC-BID 05/08/18 06/17/21 History Cholecalciferol [Vitamin D3 (25 2,000 unit PO DAILY 06/08/19 06/17/21 History Mcg = 1000 Iu)] Cyanocobalamin (Vitamin B-12) 2,000 mcg PO DAILY 06/08/19 06/17/21 History [Vitamin B-12] Famotidine [Pepcid] 20 mg PO HS 06/08/19 06/17/21 History Ferrous Sulfate [Feosol] 325 mg PO DAILY 06/08/19 06/17/21 History Flaxseed Oil 1,000 mg PO BID 06/08/19 06/17/21 History L.acidoph,Paracasei, B.lactis 1 cap PO DAILY 06/08/19 06/17/21 History [Probiotic] Acetaminophen [Tylenol Extra 1,500 mg PO Q6H PRN 03/30/21 06/17/21 History Strength] Ascorbic Acid [Vitamin C] 1,000 mg PO DAILY 03/30/21 06/17/21 History Furosemide [Lasix] 40 mg PO DAILY 03/30/21 06/17/21 History hydroCHLOROthiazide [Hydrodiuril] 25 mg PO DAILY 03/30/21 06/17/21 History ALPRAZolam [Xanax] 0.25 mg PO DAILY PRN 06/17/21 06/17/21 History Canagliflozin [Invokana] 100 mg PO DAILY 06/17/21 06/17/21 History Carvedilol [Coreg] 6.25 mg PO BID 06/17/21 06/17/21 History Fluticasone Nasal [place] [Flonase 1 spray EA NOSTRIL DAILY PRN 06/17/21 06/17/21 History Nasal Powell] Losartan Potassium [Cozaar] 25 mg PO DAILY 06/17/21 06/17/21 History Pregabalin [Lyrica] 75 mg PO BID 06/17/21 06/17/21 History Allergies Allergy/AdvReac Type Severity Reaction Status Date / Time bacitracin Allergy Unknown Verified 06/17/21 10:08 [From Neosporin ([id number])] bacitracin zinc Allergy Unknown Verified 06/17/21 10:08 [From Neosporin ([id number])] latex Allergy Rash/Hives Verified 06/17/21 10:08 neomycin sulfate Allergy Unknown Verified 06/17/21 10:08 [From Neosporin ([id number])] polymyxin B Allergy Unknown Verified 06/17/21 10:08 [From Neosporin ([id number])] Penicillins AdvReac Rash & Verified 06/17/21 10:08 Fatigue Sulfa (Sulfonamide AdvReac Rash & Verified 06/17/21 10:08 Antibiotics) Fatigue Surgical - Exam Vital Signs Temp Pulse Resp BP Pulse Ox 97.2 F L 64 18 71/52 100 06/17/21 10:01 06/17/21 10:01 06/17/21 10:01 06/17/21 10:01 06/17/21 10:01 General appearance: The patient is alert, oriented, appears in no acute distress. Obese. HET: Head is normocephalic and atraumatic. Neck: Supple without lymphadenopathy. Trachea midline. Heart: S1 S2. Regular rate and rhythm. Lungs: Clear to auscultation bilaterally. Abdomen: Soft, nontender, nondistended. Extremities: Bilateral lower extremity edema. Left lower extremity with medial ulceration with eschar and purulent drainage. Left heel tender to palpation, no wound noted. Some dry skin noted. Neurological: No focal deficits. Strength and sensation are grossly intact. Results - Labs 06/18/21 05:10 06/18/21 05:10 Abnormal Lab Results - Last 24 Hours (Table) 06/17/21 06/17/21 06/17/21 Range/Units 10:16 10:53 10:53 RBC 2.80 L (3.80-5.40) m/uL Hgb 8.7 L (11.4-16.0) gm/dL Hct 27.4 L (34.0-46.0) % MCV (80.0-100.0) fL MCHC (31.0-37.0) g/dL Plt Count 520 H (150-450) k/uL ESR (0-20) mm/hr APTT 20.9 L (22.0-30.0) sec Sodium (137-145) mmol/L Chloride (98-107) mmol/L Carbon Dioxide (22-30) mmol/L BUN (7-17) mg/dL Creatinine (0.52-1.04) mg/dL Glucose (74-99) mg/dL POC Glucose (mg/dL) 367 H (75-99) mg/dL Plasma Lactic Acid Cody (0.7-2.0) mmol/L Calcium (8.4-10.2) mg/dL C-Reactive Protein (<1.0) mg/dL Albumin (3.5-5.0) g/dL Urine Appearance (Clear) Urine Glucose (UA) (Negative) Urine Blood (Negative) Ur Squamous Epith Cells (0-4) /hpf Urine Bacteria (None) /hpf 06/17/21 06/17/21 06/17/21 Range/Units 10:53 10:53 10:53 RBC (3.80-5.40) m/uL Hgb (11.4-16.0) gm/dL Hct (34.0-46.0) % MCV (80.0-100.0) fL MCHC (31.0-37.0) g/dL Plt Count (150-450) k/uL ESR (0-20) mm/hr APTT (22.0-30.0) sec Sodium 135 L (137-145) mmol/L Chloride (98-107) mmol/L Carbon Dioxide (22-30) mmol/L BUN 69 H (7-17) mg/dL Creatinine 1.66 H (0.52-1.04) mg/dL Glucose 296 H (74-99) mg/dL POC Glucose (mg/dL) (75-99) mg/dL Plasma Lactic Acid Cody 6.1 H* (0.7-2.0) mmol/L Calcium (8.4-10.2) mg/dL C-Reactive Protein (<1.0) mg/dL Albumin (3.5-5.0) g/dL Urine Appearance Cloudy H (Clear) Urine Glucose (UA) 4+ H (Negative) Urine Blood Moderate H (Negative) Ur Squamous Epith Cells 15 H (0-4) /hpf Urine Bacteria Many H (None) /hpf 06/17/21 06/17/21 06/17/21 Range/Units 10:53 14:39 14:39 RBC 2.80 L (3.80-5.40) m/uL Hgb 8.6 L (11.4-16.0) gm/dL Hct 28.4 L (34.0-46.0) % MCV 101.4 H (80.0-100.0) fL MCHC 30.3 L (31.0-37.0) g/dL Plt Count 451 H (150-450) k/uL ESR 84 H (0-20) mm/hr APTT (22.0-30.0) sec Sodium 134 L (137-145) mmol/L Chloride (98-107) mmol/L Carbon Dioxide 17 L (22-30) mmol/L BUN 65 H (7-17) mg/dL Creatinine 1.38 H (0.52-1.04) mg/dL Glucose 342 H (74-99) mg/dL POC Glucose (mg/dL) (75-99) mg/dL Plasma Lactic Acid Cody (0.7-2.0) mmol/L Calcium (8.4-10.2) mg/dL C-Reactive Protein 2.0 H (<1.0) mg/dL Albumin (3.5-5.0) g/dL Urine Appearance (Clear) Urine Glucose (UA) (Negative) Urine Blood (Negative) Ur Squamous Epith Cells (0-4) /hpf Urine Bacteria (None) /hpf 06/17/21 06/17/21 06/17/21 Range/Units 17:44 19:59 21:24 RBC (3.80-5.40) m/uL Hgb (11.4-16.0) gm/dL Hct (34.0-46.0) % MCV (80.0-100.0) fL MCHC (31.0-37.0) g/dL Plt Count (150-450) k/uL ESR (0-20) mm/hr APTT (22.0-30.0) sec Sodium (137-145) mmol/L Chloride (98-107) mmol/L Carbon Dioxide (22-30) mmol/L BUN (7-17) mg/dL Creatinine (0.52-1.04) mg/dL Glucose (74-99) mg/dL POC Glucose (mg/dL) 397 H 302 H 178 H (75-99) mg/dL Plasma Lactic Acid Cody (0.7-2.0) mmol/L Calcium (8.4-10.2) mg/dL C-Reactive Protein (<1.0) mg/dL Albumin (3.5-5.0) g/dL Urine Appearance (Clear) Urine Glucose (UA) (Negative) Urine Blood (Negative) Ur Squamous Epith Cells (0-4) /hpf Urine Bacteria (None) /hpf 06/18/21 06/18/21 Range/Units 05:10 05:10 RBC 2.88 L (3.80-5.40) m/uL Hgb 8.6 L (11.4-16.0) gm/dL Hct 28.6 L (34.0-46.0) % MCV (80.0-100.0) fL MCHC 30.0 L (31.0-37.0) g/dL Plt Count 458 H (150-450) k/uL ESR (0-20) mm/hr APTT (22.0-30.0) sec Sodium (137-145) mmol/L Chloride 110 H (98-107) mmol/L Carbon Dioxide 16 L (22-30) mmol/L BUN 44 H (7-17) mg/dL Creatinine 1.05 H (0.52-1.04) mg/dL Glucose (74-99) mg/dL POC Glucose (mg/dL) (75-99) mg/dL Plasma Lactic Acid Cody (0.7-2.0) mmol/L Calcium 8.3 L (8.4-10.2) mg/dL C-Reactive Protein (<1.0) mg/dL Albumin 3.2 L (3.5-5.0) g/dL Urine Appearance (Clear) Urine Glucose (UA) (Negative) Urine Blood (Negative) Ur Squamous Epith Cells (0-4) /hpf Urine Bacteria (None) /hpf Microbiology - Last 24 Hours (Table) 06/17/21 16:37 Anaerobic Culture - Preliminary Leg - Left 06/17/21 16:37 Wound Culture - Preliminary Leg - Left Diabetes panel 06/17/21 06/17/21 06/18/21 Range/Units 10:53 14:39 05:10 Sodium 135 L 134 L 137 (137-145) mmol/L Potassium 4.9 4.7 4.5 (3.5-5.1) mmol/L Chloride 98 104 110 H (98-107) mmol/L Carbon Dioxide 22 17 L 16 L (22-30) mmol/L BUN 69 H 65 H 44 H (7-17) mg/dL Creatinine 1.66 H 1.38 H 1.05 H (0.52-1.04) mg/dL Glucose 296 H 342 H 95 (74-99) mg/dL Calcium 9.5 8.8 8.3 L (8.4-10.2) mg/dL AST 16 18 (14-36) U/L ALT 10 8 (4-34) U/L Alkaline Phosphatase 98 73 (38-126) U/L Total Protein 6.7 6.3 (6.3-8.2) g/dL Albumin 3.6 3.2 L (3.5-5.0) g/dL Calcium panel 06/17/21 06/17/21 06/18/21 Range/Units 10:53 14:39 05:10 Calcium 9.5 8.8 8.3 L (8.4-10.2) mg/dL Albumin 3.6 3.2 L (3.5-5.0) g/dL Pituitary panel 06/17/21 06/17/21 06/18/21 Range/Units 10:53 14:39 05:10 Sodium 135 L 134 L 137 (137-145) mmol/L Potassium 4.9 4.7 4.5 (3.5-5.1) mmol/L Chloride 98 104 110 H (98-107) mmol/L Carbon Dioxide 22 17 L 16 L (22-30) mmol/L BUN 69 H 65 H 44 H (7-17) mg/dL Creatinine 1.66 H 1.38 H 1.05 H (0.52-1.04) mg/dL Glucose 296 H 342 H 95 (74-99) mg/dL Calcium 9.5 8.8 8.3 L (8.4-10.2) mg/dL Adrenal panel 06/17/21 06/17/21 06/18/21 Range/Units 10:53 14:39 05:10 Sodium 135 L 134 L 137 (137-145) mmol/L Potassium 4.9 4.7 4.5 (3.5-5.1) mmol/L Chloride 98 104 110 H (98-107) mmol/L Carbon Dioxide 22 17 L 16 L (22-30) mmol/L BUN 69 H 65 H 44 H (7-17) mg/dL Creatinine 1.66 H 1.38 H 1.05 H (0.52-1.04) mg/dL Glucose 296 H 342 H 95 (74-99) mg/dL Calcium 9.5 8.8 8.3 L (8.4-10.2) mg/dL Total Bilirubin 0.6 0.5 (0.2-1.3) mg/dL AST 16 18 (14-36) U/L ALT 10 8 (4-34) U/L Alkaline Phosphatase 98 73 (38-126) U/L Total Protein 6.7 6.3 (6.3-8.2) g/dL Albumin 3.6 3.2 L (3.5-5.0) g/dL Assessment and Plan Assessment: 1. Nonhealing left lower extremity wound 2. History of diabetes mellitus with diabetic neuropathy 3. History of coronary artery disease status post heart catheterization and stent Plan: 1. Dakin's solution half-strength wet-to-dry daily 2. Elevate lower extremities 3. Apply heel protectors to lower extremity 4. Nothing by mouth after midnight 5. Plan for left lower extremity debridement tomorrow 6. Hold morning dose of heparin Thank you for this consultation, we will continue to follow. The impression and plan of care has been dictated as directed. I performed a history and examination of this patient, discussed the same with the dictator. I agree with the dictator's note ,documented as a scribe. Any additional findings or plans will be noted.
[2021-06-18] MEDS: MORPHINE SULFATE 2 MG/ML SYRINGE IVP PRN ×2 (13:37→17:39)
[2021-06-18] MEDS: ACETAMINOPHEN TAB 500 MG TAB PO PRN (15:53)
--- NOTE | 2021-06-18 16:22 | P.PN ---
Subjective Progress Note Date: 06/18/21 History of Present Illness H&P Date: 06/17/21 Chief Complaint: Infected left leg ulcer for severe pain and tenderness 80-year-old female, seen in the emergency department. She presented to the emergency room with a chief complaint of severe left leg pain with infected ulcer. She developed this ulcer and lost January 2021. The patient has had debridement, by Dr. Triana and Dr. Herrera first one on April 2 one on May. The patient comes into the emergency room, because of weakness. She has a low blood pressure. She is a lactic acid is 6. The primary service was concerned about sepsis. The patient is also complaining about left foot pain, numbness in her left foot, and elevated blood sugar. The ulcer on the medial left leg, has been present for many months, and has gotten worse. There is no fever or chills. The patient has a history of diabetes, hyperlipidemia, hypertension, GERD, osteoarthritis, peripheral vascular occlusive disease, diabetic neuropathy, CAD, with previous heart catheterization and stent placemen t. White count 10.3, hemoglobin 8.7, hematocrit 27.4, and platelet count 520,000. Sodium 135, potassium 4.9, chlorides 98, CO2 22, anion gap 15, BUN 69, and creatinine 1.66. Lactic acid is 6.1. Urine is light yellow and cloudy. There is moderate blood. There is 4+ glucose. There is many bacteria. The patient is not having any urinary tract symptoms. X-rays of the leg and foot, showed only soft tissue changes. The patient is received Rocephin and vancomycin in the ER. Blood pressure has been only in the mid 70s, systolic. She is being transferred to ICU.discussed with the museum service scheduler Dr. Comer Patient was examined at the bedside. She still complaining of significant pain in her left leg also she is reporting nausea. She denies any chest pain or shortness of breath. Objective - Vital Signs Vital signs: Vital Signs Temp 98.4 F 06/18/21 15:20 Pulse 72 06/18/21 15:20 Resp 18 06/18/21 15:20 BP 90/46 06/18/21 15:20 Pulse Ox 96 06/18/21 15:20 Intake & Output 06/17/21 06/18/21 06/18/21 18:59 06:59 18:59 Intake Total 520 Output Total 700 Balance -180 Weight 83.007 kg 83.007 kg Intake: IV 520 Sodium Chloride 0.9% 1, 520 000 ml @ 130 mls/hr IV . Q7H42M [facility] Rx#:[id number] Output: Urine 700 Other: Voiding Method Indwelling Catheter - Exam General: non toxic, no distress, appears at stated age Derm: warm, dry Head: atraumatic, normocephalic, symmetric Eyes: EOMI, no lid lag, anicteric sclera Mouth: no lip lesion, mucus membranes moist Cardiovascular: S1S2 reg, no murmur, positive posterior tibial pulse bilateral, Lungs: CTA bilateral, no rhonchi, no rales , no accessory muscle use Abdominal: soft, nontender to palpation, no guarding, no appreciable organomegaly Ext: Left leg ulcer 7 x 6 cm deep with necrotic tissue and pus surrounding cellulitis and edema. Tender to palpation Neuro: CN II-XI grossly intact, no focal neuro deficits Psych: Alert, oriented, appropriate affect - Labs CBC & Chem 7: 06/18/21 05:10 06/18/21 05:10 Labs: Abnormal Lab Results - Last 24 Hours (Table) 06/17/21 06/17/21 06/17/21 Range/Units 10:53 17:44 19:59 RBC (3.80-5.40) m/uL Hgb (11.4-16.0) gm/dL Hct (34.0-46.0) % MCHC (31.0-37.0) g/dL Plt Count (150-450) k/uL ESR 84 H (0-20) mm/hr Chloride (98-107) mmol/L Carbon Dioxide (22-30) mmol/L BUN (7-17) mg/dL Creatinine (0.52-1.04) mg/dL POC Glucose (mg/dL) 397 H 302 H (75-99) mg/dL Hemoglobin A1c (0.0-6.0) % Calcium (8.4-10.2) mg/dL Albumin (3.5-5.0) g/dL 06/17/21 06/18/21 06/18/21 Range/Units 21:24 05:10 05:10 RBC (3.80-5.40) m/uL Hgb (11.4-16.0) gm/dL Hct (34.0-46.0) % MCHC (31.0-37.0) g/dL Plt Count (150-450) k/uL ESR (0-20) mm/hr Chloride 110 H (98-107) mmol/L Carbon Dioxide 16 L (22-30) mmol/L BUN 44 H (7-17) mg/dL Creatinine 1.05 H (0.52-1.04) mg/dL POC Glucose (mg/dL) 178 H (75-99) mg/dL Hemoglobin A1c 8.5 H (0.0-6.0) % Calcium 8.3 L (8.4-10.2) mg/dL Albumin 3.2 L (3.5-5.0) g/dL 06/18/21 06/18/21 Range/Units 05:10 11:43 RBC 2.88 L (3.80-5.40) m/uL Hgb 8.6 L (11.4-16.0) gm/dL Hct 28.6 L (34.0-46.0) % MCHC 30.0 L (31.0-37.0) g/dL Plt Count 458 H (150-450) k/uL ESR (0-20) mm/hr Chloride (98-107) mmol/L Carbon Dioxide (22-30) mmol/L BUN (7-17) mg/dL Creatinine (0.52-1.04) mg/dL POC Glucose (mg/dL) 123 H (75-99) mg/dL Hemoglobin A1c (0.0-6.0) % Calcium (8.4-10.2) mg/dL Albumin (3.5-5.0) g/dL Microbiology - Last 24 Hours (Table) 06/17/21 10:53 Blood Culture - Preliminary Blood No Growth after 24 hours 06/17/21 10:53 Blood Culture - Preliminary Blood No Growth after 24 hours 06/17/21 16:37 Gram Stain - Preliminary Leg - Left Wound Culture - Preliminary 06/17/21 16:37 Anaerobic Culture - Preliminary Leg - Left Assessment and Plan Assessment: Assessment and plan: #Infected left leg ulcer with severe sepsis -Patient was found to be hypotensive in the emergency room hypotension improved with IV fluids -Lactic acid 6.1 -Patient being admitted to ICU -IV fluids resuscitation. -IV vancomycin and cefepime -Wound culture--pending -Blood cultures ordered 2 -Vascular surgery following -MRI of the left Leg ruled out osteomalacia and abscess showed evidence of cellulitis and myositis #Severe peripheral vascular disease -Vascular surgery consulted #Severe lactic acidosis -Improved IV fluids -Discontinue metformin #Hypotension -Secondary to sepsis -Improved with IV fluids #Coronary disease status post stent -Beta gil and hold due to hypotension -Patient denies any chest pain or shortness of breath #Acute kidney injury -Improved -Most likely secondary to hypotension and prerenal azotemia possibly ATN -Hold diuretics and antihypertensive medications -Hydrate the patient -Renal ultrasound to rule ruled out obstruction -Avoid nephrotoxic agents #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
[2021-06-18 16:27] LABS: Glucose,Whole Blood 397 mg/dL (75-99)
[2021-06-18] MEDS: SODIUM HYPOCHLORITE 0.25% 480 ML BOT MISCELLANE SCH (16:58)
[2021-06-18] MEDS: LACTATED RINGERS 1,000 ML IV SCH (16:59)
[2021-06-18 20:25] LABS: Glucose,Whole Blood 319 mg/dL (75-99)
[2021-06-18] MEDS: INSULIN DETEMIR (LEVEMIR) 100 UNIT/ML SYR SQ SCH (21:24)
[2021-06-18] MEDS: FAMOTIDINE 20 MG TAB PO SCH (21:24)
--- NOTE | 2021-06-18 23:53 | P.PN ---
Subjective Progress Note Date: 06/18/21 Principal diagnosis: Left leg wound and cellulitis Patient is 80 year old female with a past medical history significant for chronic nonhealing wound, left lower extremity admitted to the hospital with worsening pain to the left leg wound concerning for cellulitis. On today's evaluation that is 06/18/2021 the patient denies having any fever or chills, the patient mentioned feeling slightly better left leg pain has slightly decreased the chest pain shortness of breath or cough no abdominal pain no diarrhea Objective - Vital Signs Vital signs: Vital Signs Temp 98.4 F 06/18/21 15:20 Pulse 72 06/18/21 15:20 Resp 18 06/18/21 15:20 BP 90/46 06/18/21 15:20 Pulse Ox 96 06/18/21 15:20 Intake & Output 06/18/21 06/18/21 06/19/21 06:59 18:59 06:59 Intake Total 520 Output Total 800 Balance -280 Weight 83.007 kg Intake: IV 520 Sodium Chloride 0.9% 1, 520 000 ml @ 130 mls/hr IV . Q7H42M [facility] Rx#:[id number] Output: Urine 800 Other: Voiding Method Indwelling Catheter - Exam GENERAL DESCRIPTION: An elderly female lying in bed in no distress RESPIRATORY SYSTEM: Unlabored breathing , decreased breath sounds at bases HEART: S1 S2 regular rate and rhythm , ABDOMEN: Soft , no tenderness EXTREMITIES: Left leg wound is currently dressed no drainage on the dressing - Labs CBC & Chem 7: 06/18/21 05:10 06/18/21 05:10 Labs: Abnormal Lab Results - Last 24 Hours (Table) 06/18/21 06/18/21 06/18/21 Range/Units 05:10 05:10 05:10 RBC 2.88 L (3.80-5.40) m/uL Hgb 8.6 L (11.4-16.0) gm/dL Hct 28.6 L (34.0-46.0) % MCHC 30.0 L (31.0-37.0) g/dL Plt Count 458 H (150-450) k/uL Chloride 110 H (98-107) mmol/L Carbon Dioxide 16 L (22-30) mmol/L BUN 44 H (7-17) mg/dL Creatinine 1.05 H (0.52-1.04) mg/dL POC Glucose (mg/dL) (75-99) mg/dL Hemoglobin A1c 8.5 H (0.0-6.0) % Calcium 8.3 L (8.4-10.2) mg/dL Albumin 3.2 L (3.5-5.0) g/dL 06/18/21 06/18/21 06/18/21 Range/Units 11:43 16:23 20:23 RBC (3.80-5.40) m/uL Hgb (11.4-16.0) gm/dL Hct (34.0-46.0) % MCHC (31.0-37.0) g/dL Plt Count (150-450) k/uL Chloride (98-107) mmol/L Carbon Dioxide (22-30) mmol/L BUN (7-17) mg/dL Creatinine (0.52-1.04) mg/dL POC Glucose (mg/dL) 123 H 397 H 319 H (75-99) mg/dL Hemoglobin A1c (0.0-6.0) % Calcium (8.4-10.2) mg/dL Albumin (3.5-5.0) g/dL Microbiology - Last 24 Hours (Table) 06/17/21 16:37 Gram Stain - Preliminary Leg - Left Wound Culture - Preliminary Gram Neg Bacilli 06/17/21 10:53 Blood Culture - Preliminary Blood No Growth after 24 hours 06/17/21 10:53 Blood Culture - Preliminary Blood No Growth after 24 hours 06/17/21 16:37 Anaerobic Culture - Preliminary Leg - Left Assessment and Plan (1) Leg wound, left Current Visit: Yes Status: Acute Code(s): S81.802A - UNSPECIFIED OPEN WOUND, LEFT LOWER LEG, INITIAL ENCOUNTER SNOMED Code(s): 108169588 Plan: 1patient with chronic nonhealing wound to the left lower extremity in this patient presented to hospital with increasing pain swelling redness and concern for cellulitis apparently the patient did have a chronic wound and has been exposed to antibiotic will need to cover for both gram-positive as well as gram- negative pathogen. 2local wound cultures to guide antibiotic therapy 3patient to continue with vancomycin pharmacy to dose and cefepime while waiting for the cultures to finalize Time with Patient: Less than 30
[2021-06-19] MEDS: SODIUM CHLORIDE 0.9% 1,000 ML IV SCH (02:39)
[2021-06-19 06:31] LABS: ALT 10 U/L (4-34); AST 27 U/L (14-36); African American GFR (CKD) 53 (>60 ml/min/1.73 sqM); Albumin 2.7 g/dL (3.5-5.0); Albumin/Globulin Ratio 0.9; Alkaline Phosphatase 64 U/L (38-126); Anion Gap 0 mmol/L; Blood Urea Nitrogen 26 mg/dL (7-17); Carbon Dioxide 20 mmol/L (22-30); Chloride 113 mmol/L (98-107); Globulin 2.9 g/dL; Glucose 175 mg/dL (74-99); Non-African American GFR(CKD) 46 (>60 ml/min/1.73 sqM); Sodium 133 mmol/L (137-145); Total Bilirubin 0.5 mg/dL (0.2-1.3); Total Protein 5.6 g/dL (6.3-8.2)
[2021-06-19] MEDS: ASCORBIC ACID 500 MG TAB PO SCH ×2 (07:14→09:39)
[2021-06-19] MEDS: ASPIRIN 81 MG PO SCH ×2 (07:14→08:45)
[2021-06-19] MEDS: PANTOPRAZOLE 40 MG TABLET PO SCH ×2 (07:14→08:46)
[2021-06-19] MEDS: PREGABALIN 75 MG CAP PO SCH ×3 (07:15→21:43)
[2021-06-19] MEDS: CHOLECALCIFEROL 25 MCG (1000 IU) TABLET PO SCH ×2 (07:15→09:39)
[2021-06-19] MEDS: HEPARIN SODIUM,PORCINE/PF 5,000 UNIT/0.5 ML SYRINGE SQ SCH ×3 (07:15→21:22)
[2021-06-19] MEDS: FERROUS SULFATE 325 MG TAB PO SCH ×2 (07:15→09:39)
[2021-06-19] MEDS: SODIUM HYPOCHLORITE 0.25% 480 ML BOT MISCELLANE SCH ×3 (07:15→17:55)
[2021-06-19] MEDS: LACTOBACILLUS ACIDOPH & BULGAR 1 EACH PACKET PO SCH ×2 (07:15→09:39)
[2021-06-19] MEDS: CYANOCOBALAMIN 500 MCG TAB PO SCH ×2 (07:15→09:39)
[2021-06-19] MEDS: FENOFIBRATE 160 MG TAB PO SCH ×2 (07:15→08:46)
[2021-06-19 07:20] LABS: Glucose,Whole Blood 171 mg/dL (75-99)
[2021-06-19] MEDS: ALPRAZolam 0.25 MG TAB PO PRN ×3 (07:49→18:17)
[2021-06-19] MEDS: INSULIN ASPART (NovoLOG) 100 UNIT/ML VIAL SQ SCH ×4 (07:49→21:42)
[2021-06-19] MEDS: CEFEPIME 2 GM in SODIUM CHLORIDE 0.9% 100 ML IVPB SCH ×2 (07:50→21:43)
[2021-06-19 08:15] LABS: Vancomycin,Random 14.6 ug/mL
[2021-06-19] MEDS: MORPHINE SULFATE 2 MG/ML SYRINGE IVP PRN ×4 (08:32→22:30)
[2021-06-19 09:34] LABS: Basophils # (A) 0.04 X 10*3/uL (0.00-0.10); Basophils % (A) 0.4 %; Eosinophils # (A) 0.45 X 10*3/uL (0.04-0.35); Eosinophils % (A) 4.1 %; HCT 24.6 % (37.2-46.3); HGB 7.2 g/dL (12.0-15.0); Immature Grans, Automated 0.7 %; Lymphocytes # (A) 1.46 X 10*3/uL (0.90-5.00); Lymphocytes % (A) 13.4 %; MCHC 29.3 g/dL (32.0-37.0); MCV 99.2 fL (80.0-97.0); Mean Platelet Volume 10.9 fL (9.5-12.2); Monocytes # (A) 0.81 X 10*3/uL (0.20-1.00); Monocytes % (A) 7.5 %; NRBC Per 100 WBC 0 /100 WBCS (0.0-0.0); Neutrophils # (A) 8.02 X 10*3/uL (1.80-7.70); Neutrophils % (A) 73.9 %; Platelet Count 392 X 10*3/uL (140-440); RBC 2.48 X 10*6/uL (4.10-5.20); RDW 14.9 % (11.5-14.5); WBC 10.86 X 10*3/uL (4.50-10.00)
--- NOTE | 2021-06-19 09:49 | XR ---
EXAMINATION TYPE: XR chest 1V portable DATE OF EXAM: 06/19/2021 COMPARISON: Chest x-ray dated 05/11/2012 HISTORY: Shortness of breath TECHNIQUE: Single frontal view of the chest is obtained. FINDINGS: Interstitium is increased. There is no evident pneumothorax or sizable pleural effusion, t here may be minimal blunting the costophrenic angles. There is an underlying scoliosis. Cardiomediast inal silhouette is within normal limits accounting for technique. Aorta is dense. IMPRESSION: Correlate for pulmonary venous hypertension and interstitial edema. Follow-up is suggest ed.
[2021-06-19] MEDS ORDERED: FUROSEMIDE 10 MG/ML 4 ML VIAL IV STA (10:49)
[2021-06-19 11:16] LABS: Glucose,Whole Blood 260 mg/dL (75-99)
--- NOTE | 2021-06-19 11:17 | P.PN ---
Subjective Progress Note Date: 06/19/21 She is seen and examined sitting up in the recliner. She was tentatively scheduled for possible debridement today but that is rescheduled for tomorrow. States her pain is being well managed with pain medication. Left lower extremity is very tender with dressing changes. She's been afebrile. Patient h ad arterial ultrasound of the bilateral lower extremities yesterday. ABIs unable to be obtained on the left lower extremity. Decreased waveforms. Objective - Vital Signs Vital signs: Vital Signs Temp 98.1 F 06/19/21 07:55 Pulse 98 06/19/21 07:55 Resp 18 06/19/21 07:55 BP 146/79 06/19/21 07:55 Pulse Ox 96 06/19/21 07:55 Intake & Output 06/18/21 06/19/21 06/19/21 18:59 06:59 18:59 Intake Total 520 1660 Output Total 800 1800 Balance -280 -140 Weight 83.007 kg Intake: IV 520 1560 Sodium Chloride 0.9% 1, 520 1560 000 ml @ 130 mls/hr IV . Q7H42M [facility] Rx#:[id number] Intake, IV Titration 100 Amount Cefepime 2 gm In Sodium 100 Chloride 0.9% 100 ml @ 25 mls/hr IVPB Q12HR [facility] Rx #:[id number] Output: Urine 800 1800 Other: Voiding Method Indwelling Catheter - Exam General appearance: The patient is alert, oriented, appears in no acute distress. HET: Head is normocephalic and atraumatic. Neck: Supple. Extremities: Bilateral lower extremities warm to the touch. Bilateral lower extremity edema. Left lower extremity with dressing clean dry and intact. N onpalpable DP or PT pulses. Monophasic DP signal. Neurological: No focal deficits. Strength and sensation are grossly intact. - Labs CBC & Chem 7: 06/19/21 06:02 06/19/21 06:02 Labs: Abnormal Lab Results - Last 24 Hours (Table) 06/18/21 06/18/21 06/18/21 Range/Units 11:43 16:23 20:23 Sodium (137-145) mmol/L Chloride (98-107) mmol/L Carbon Dioxide (22-30) mmol/L BUN (7-17) mg/dL Creatinine (0.52-1.04) mg/dL Glucose (74-99) mg/dL POC Glucose (mg/dL) 123 H 397 H 319 H (75-99) mg/dL Calcium (8.4-10.2) mg/dL Total Protein (6.3-8.2) g/dL Albumin (3.5-5.0) g/dL 06/19/21 06/19/21 Range/Units 06:02 07:18 Sodium 133 L (137-145) mmol/L Chloride 113 H (98-107) mmol/L Carbon Dioxide 20 L (22-30) mmol/L BUN 26 H (7-17) mg/dL Creatinine 1.12 H (0.52-1.04) mg/dL Glucose 175 H (74-99) mg/dL POC Glucose (mg/dL) 171 H (75-99) mg/dL Calcium 8.0 L (8.4-10.2) mg/dL Total Protein 5.6 L (6.3-8.2) g/dL Albumin 2.7 L (3.5-5.0) g/dL Microbiology - Last 24 Hours (Table) 06/17/21 16:37 Gram Stain - Preliminary Leg - Left Wound Culture - Preliminary Gram Neg Bacilli 06/17/21 10:53 Blood Culture - Preliminary Blood No Growth after 24 hours 06/17/21 10:53 Blood Culture - Preliminary Blood No Growth after 24 hours Assessment and Plan Assessment: 1. Nonhealing left lower extremity wound 2. History of diabetes mellitus with diabetic neuropathy 3. History of coronary artery disease status post heart catheterization and stent Plan: 1. Dakin's solution half-strength wet-to-dry daily 2. Elevate lower extremities 3. Apply Mediboot heel protectors to lower extremity 4. Nothing by mouth after midnight 5. Plan for left lower extremity debridement tomorrow 6. Hold morning dose of heparin Thank you for this consultation, we will continue to follow. The impression and plan of care has been dictated as directed. I performed a history and examination of this patient, discussed the same with the dictator. I agree with the dictator's note ,documented as a scribe. Any additional findings or plans will be noted.
[2021-06-19] MEDS: IPRATROPIUM-ALBUTEROL 3 ML NEB INHALATION PRN ×3 (11:18→20:47)
[2021-06-19] MEDS ORDERED: FUROSEMIDE 10 MG/ML 2 ML VIAL IV ONE (12:30)
[2021-06-19] MEDS: VANCOMYCIN 1,500 MG in SODIUM CHLORIDE 0.9% 250 ML IVPB SCH (12:31)
--- NOTE | 2021-06-19 12:40 | P.PN ---
Subjective Progress Note Date: 06/19/21 Principal diagnosis: Shortness of breath, sepsis 80-year-old female, seen in the emergency department. He was in ER room 3. We were consulted because of possible sepsis, from a left leg ulcer. She is a very large ulcer on the medial aspect of her left mid leg. The patient has had debridement, by Dr. Triana and Dr. Herrera. The patient comes into the emergency room, because of weakness. She has a low blood pressure. She is a lactic acid is 6. The primary service was concerned about sepsis. The patient is also complaining about left foot pain, numbness in her left foot, and elevated blood sugar. The ulcer on the medial left leg, has been present for many months, and has gotten worse. There is no fever or chills. The patient has a history of diabetes, hyperlipidemia, hypertension, GERD, osteoarthritis, peripheral vascular occlusive disease, diabetic neuropathy, CAD, with previous heart catheterization and stent placement. White count 10.3, hemoglobin 8.7, hematocrit 27.4, and platelet count 520,000. Sodium 135, potassium 4.9, chlorides 98, CO2 22, anion gap 15, BUN 69, and creatinine 1.66. Lactic acid is 6.1. Urine is light yellow and cloudy. There is moderate blood. There is 4+ glucose. There is many bacteria. The patient is not having any urinary tract symptoms. X-rays of the leg and foot, showed only soft tissue changes. The patient is currently on Rocephin and vancomycin. Blood pressure has been only in the mid 70s, systolic. Progress note dated 06/18/2021. The patient is seen in room 254. Yesterday, she was seen in the emergency department. She was admitted to the intensive care unit for possible underlying sepsis. Her initial lactic acid was 6.1. Follow with 1.9. The patient is on room air. She's getting saline at 130 mL an hour. We will ask infectious diseases to see her. She is a very large ulcer on the medial aspect of her left leg. White count 9.9, hemoglobin 8.6, hematocrit 28.6, platelet count 459,000. Sodium 137, potassium 4.5, chlorides 110, CO2 16, anion gap 11, BUN 44, creatinine 1.05. Culture data from the left leg is currently negative or pending. Ultrasound of the kidneys revealed no hydronephrosis. The patient's currently on cefepime and vancomycin. On 06/19/2021 patient seen in follow-up. She is awake and alert, she sits up in the recliner, today she states she feels more short of breath. Denies any coughing, no wheezing, no phlegm production. On 2 L of oxygen her pulse ox is 96%, she is afebrile, hemodynamically she stable, her chest x-ray today showing prominent interstitium, no sizable pleural effusion or pneumothorax, minimal blunting of the costophrenic angles, findings are compatible with fluid volume overload. Currently patient is not on any maintenance IV fluids, she is tolerating oral intake, she remains on antibiotics cefepime and vancomycin for left lower leg wound infection. Her wound cultures are positive for gram- negative bacilli, blood cultures have been negative. Her white blood cell count is 10.8, hemoglobin is 7.2, sodium is 133, potassium is 5.0, chloride is 113, CO2 is 20, BUN is 26, creatinine is 1.12. LFTs are within normal limits. Objective - Vital Signs Vital signs: Vital Signs Temp 98.1 F 06/19/21 07:55 Pulse 100 06/19/21 11:30 Resp 18 06/19/21 07:55 BP 146/79 06/19/21 07:55 Pulse Ox 96 06/19/21 07:55 Intake & Output 06/18/21 06/19/21 06/19/21 18:59 06:59 18:59 Intake Total 520 1660 Output Total 800 1800 Balance -280 -140 Weight 83.007 kg Intake: IV 520 1560 Sodium Chloride 0.9% 1, 520 1560 000 ml @ 130 mls/hr IV . Q7H42M [facility] Rx#:[id number] Intake, IV Titration 100 Amount Cefepime 2 gm In Sodium 100 Chloride 0.9% 100 ml @ 25 mls/hr IVPB Q12HR [facility] Rx #:[id number] Output: Urine 800 1800 Other: Voiding Method Indwelling Catheter - Exam GENERAL EXAM: Alert, very pleasant 80-year-old female patient on 2 L of oxygen and a pulse ox of 96%, comfortable in no apparent distress. HEAD: Normocephalic/atraumatic. EYES: Normal reaction of pupils, equal size. Conjunctiva pink, sclera white. NOSE: Clear with pink turbinates. THROAT: No erythema or exudates. NECK: No masses, no JVD, no thyroid enlargement, no adenopathy. CHEST: No chest wall deformity. Symmetrical expansion. LUNGS: Equal air entry with diffuse coarse crackles CVS: Regular rate and rhythm, normal S1 and S2, no gallops, no murmurs, no rubs ABDOMEN: Soft, nontender. No hepatosplenomegaly, normal bowel sounds, no g uarding or rigidity. EXTREMITIES: No clubbing, no edema, no cyanosis, 2+ pulses and upper and lower extremities. MUSCULOSKELETAL: Muscle strength and tone normal. SPINE: No scoliosis or deformity SKIN: Left pretibial area unstageable wound is covered with a dressing. CENTRAL NERVOUS SYSTEM: Alert and oriented -3. No focal deficits, tone is normal in all 4 extremities. PSYCHIATRIC: Alert and oriented -3. Appropriate affect. Intact judgment and insight. - Labs CBC & Chem 7: 06/19/21 06:02 06/19/21 06:02 Labs: Abnormal Lab Results - Last 24 Hours (Table) 06/18/21 06/18/21 06/19/21 Range/Units 16:23 20:23 06:02 WBC (4.50-10.00) X 10*3/uL RBC (4.10-5.20) X 10*6/uL Hgb (12.0-15.0) g/dL Hct (37.2-46.3) % MCV (80.0-97.0) fL MCHC (32.0-37.0) g/dL RDW (11.5-14.5) % Immature Gran # (0.00-0.04) X 10*3/uL Neutrophils # (1.80-7.70) X 10*3/uL Eosinophils # (0.04-0.35) X 10*3/uL Sodium 133 L (137-145) mmol/L Chloride 113 H (98-107) mmol/L Carbon Dioxide 20 L (22-30) mmol/L BUN 26 H (7-17) mg/dL Creatinine 1.12 H (0.52-1.04) mg/dL Glucose 175 H (74-99) mg/dL POC Glucose (mg/dL) 397 H 319 H (75-99) mg/dL Calcium 8.0 L (8.4-10.2) mg/dL Total Protein 5.6 L (6.3-8.2) g/dL Albumin 2.7 L (3.5-5.0) g/dL 06/19/21 06/19/21 06/19/21 Range/Units 06:02 07:18 11:15 WBC 10.86 H (4.50-10.00) X 10*3/uL RBC 2.48 L (4.10-5.20) X 10*6/uL Hgb 7.2 L (12.0-15.0) g/dL Hct 24.6 L (37.2-46.3) % MCV 99.2 H (80.0-97.0) fL MCHC 29.3 L (32.0-37.0) g/dL RDW 14.9 H (11.5-14.5) % Immature Gran # 0.08 H (0.00-0.04) X 10*3/uL Neutrophils # 8.02 H (1.80-7.70) X 10*3/uL Eosinophils # 0.45 H (0.04-0.35) X 10*3/uL Sodium (137-145) mmol/L Chloride (98-107) mmol/L Carbon Dioxide (22-30) mmol/L BUN (7-17) mg/dL Creatinine (0.52-1.04) mg/dL Glucose (74-99) mg/dL POC Glucose (mg/dL) 171 H 260 H (75-99) mg/dL Calcium (8.4-10.2) mg/dL Total Protein (6.3-8.2) g/dL Albumin (3.5-5.0) g/dL Microbiology - Last 24 Hours (Table) 06/17/21 16:37 Gram Stain - Preliminary Leg - Left Wound Culture - Preliminary Gram Neg Bacilli 06/17/21 10:53 Blood Culture - Preliminary Blood No Growth after 24 hours 06/17/21 10:53 Blood Culture - Preliminary Blood No Growth after 24 hours Assessment and Plan Plan: Assessment: #1. Acute sepsis related to left lower extremity wound infection, wound cultures are positive for gram-negative bacilli, fungal cultures are pending, patient is currently on cefepime and vancomycin #2. Lactic acidosis, hypotension secondary to sepsis, resolved #3. Coronary artery disease, status post heart catheterization and stent place ment #4. History of diabetes mellitus type 2, with diabetic neuropathy #5. Peripheral vascular occlusive disease #6. History of hyperlipidemia #7. History of GERD/reflux #8. History of hypertension Plan: Chest x-ray has been reviewed Compatible with interstitial edema We'll give the patient one-time dose of IV Lasix 40 Follow-up chest x-ray tomorrow Awaiting final wound cultures Continue antibiotics per ID service recommendations Follow electrolytes and renal profile We'll continue to follow the patient from pulm perspective I have personally seen and examined the patient, performed the documentation and the assessment and plan as written. Number of minutes spent on the visit: [10] Time with Patient: Less than 30
--- NOTE | 2021-06-19 14:56 | P.PN ---
Subjective Progress Note Date: 06/19/21 History of Present Illness H&P Date: 06/17/21 Chief Complaint: Infected left leg ulcer for severe pain and tenderness 80-year-old female, seen in the emergency department. She presented to the emergency room with a chief complaint of severe left leg pain with infected ulcer. She developed this ulcer and lost January 2021. The patient has had debridement, by Dr. Triana and Dr. Herrera first one on April 2 one on May. The patient comes into the emergency room, because of weakness. She has a low blood pressure. She is a lactic acid is 6. The primary service was concerned about sepsis. The patient is also complaining about left foot pain, numbness in her left foot, and elevated blood sugar. The ulcer on the medial left leg, has been present for many months, and has gotten worse. There is no fever or chills. The patient has a history of diabetes, hyperlipidemia, hypertension, GERD, osteoarthritis, peripheral vascular occlusive disease, diabetic neuropathy, CAD, with previous heart catheterization and stent placemen t. White count 10.3, hemoglobin 8.7, hematocrit 27.4, and platelet count 520,000. Sodium 135, potassium 4.9, chlorides 98, CO2 22, anion gap 15, BUN 69, and creatinine 1.66. Lactic acid is 6.1. Urine is light yellow and cloudy. There is moderate blood. There is 4+ glucose. There is many bacteria. The patient is not having any urinary tract symptoms. X-rays of the leg and foot, showed only soft tissue changes. The patient is received Rocephin and vancomycin in the ER. Blood pressure has been only in the mid 70s, systolic. She is being transferred to ICU.discussed with the head of english Dr. Comer Interval history: Patient was examined at the bedside. Patient was transferred out of the ICU overnight Patient is complaining of shortness of breath and a chest x-ray showed interstitial edema. Patient was given a one-time dose of Lasix 40 mg IV push by pulmonary service. Patient denies any chest pain. Pending cardiology consultation Objective - Vital Signs Vital signs: Vital Signs Temp 97.9 F 06/19/21 14:00 Pulse 103 H 06/19/21 14:00 Resp 18 06/19/21 14:00 BP 152/52 06/19/21 14:00 Pulse Ox 95 06/19/21 14:00 Intake & Output 06/18/21 06/19/21 06/19/21 18:59 06:59 18:59 Intake Total 520 1660 Output Total 800 1800 1900 Balance -280 -140 -1900 Weight 83.007 kg Intake: IV 520 1560 Sodium Chloride 0.9% 1, 520 1560 000 ml @ 130 mls/hr IV . Q7H42M [facility] Rx#:[id number] Intake, IV Titration 100 Amount Cefepime 2 gm In Sodium 100 Chloride 0.9% 100 ml @ 25 mls/hr IVPB Q12HR [facility] Rx #:[id number] Output: Urine 800 1800 1900 Other: Voiding Method Indwelling Catheter - Exam General: non toxic, no distress, appears at stated age Derm: warm, dry Head: atraumatic, normocephalic, symmetric Eyes: EOMI, no lid lag, anicteric sclera Mouth: no lip lesion, mucus membranes moist Cardiovascular: S1S2 reg, no murmur, positive posterior tibial pulse bilateral, Lungs: CTA bilateral, no rhonchi, no rales , no accessory muscle use Abdominal: soft, nontender to palpation, no guarding, no appreciable organomegaly Ext: Left leg ulcer 7 x 6 cm deep with necrotic tissue and pus surrounding cellulitis and edema. Tender to palpation Neuro: CN II-XI grossly intact, no focal neuro deficits Psych: Alert, oriented, appropriate affect - Labs CBC & Chem 7: 06/19/21 06:02 06/19/21 06:02 Labs: Abnormal Lab Results - Last 24 Hours (Table) 06/18/21 06/18/21 06/19/21 Range/Units 16:23 20:23 06:02 WBC (4.50-10.00) X 10*3/uL RBC (4.10-5.20) X 10*6/uL Hgb (12.0-15.0) g/dL Hct (37.2-46.3) % MCV (80.0-97.0) fL MCHC (32.0-37.0) g/dL RDW (11.5-14.5) % Immature Gran # (0.00-0.04) X 10*3/uL Neutrophils # (1.80-7.70) X 10*3/uL Eosinophils # (0.04-0.35) X 10*3/uL Sodium 133 L (137-145) mmol/L Chloride 113 H (98-107) mmol/L Carbon Dioxide 20 L (22-30) mmol/L BUN 26 H (7-17) mg/dL Creatinine 1.12 H (0.52-1.04) mg/dL Glucose 175 H (74-99) mg/dL POC Glucose (mg/dL) 397 H 319 H (75-99) mg/dL Calcium 8.0 L (8.4-10.2) mg/dL Total Protein 5.6 L (6.3-8.2) g/dL Albumin 2.7 L (3.5-5.0) g/dL 06/19/21 06/19/21 06/19/21 Range/Units 06:02 07:18 11:15 WBC 10.86 H (4.50-10.00) X 10*3/uL RBC 2.48 L (4.10-5.20) X 10*6/uL Hgb 7.2 L (12.0-15.0) g/dL Hct 24.6 L (37.2-46.3) % MCV 99.2 H (80.0-97.0) fL MCHC 29.3 L (32.0-37.0) g/dL RDW 14.9 H (11.5-14.5) % Immature Gran # 0.08 H (0.00-0.04) X 10*3/uL Neutrophils # 8.02 H (1.80-7.70) X 10*3/uL Eosinophils # 0.45 H (0.04-0.35) X 10*3/uL Sodium (137-145) mmol/L Chloride (98-107) mmol/L Carbon Dioxide (22-30) mmol/L BUN (7-17) mg/dL Creatinine (0.52-1.04) mg/dL Glucose (74-99) mg/dL POC Glucose (mg/dL) 171 H 260 H (75-99) mg/dL Calcium (8.4-10.2) mg/dL Total Protein (6.3-8.2) g/dL Albumin (3.5-5.0) g/dL Microbiology - Last 24 Hours (Table) 06/17/21 10:53 Blood Culture - Preliminary Blood No Growth after 48 hours 06/17/21 16:37 Gram Stain - Preliminary Leg - Left Wound Culture - Preliminary Gram Neg Bacilli 06/17/21 10:53 Blood Culture - Preliminary Blood No Growth after 24 hours Assessment and Plan Assessment: Assessment and plan: #Infected left leg ulcer with severe sepsis -Patient was found to be hypotensive in the emergency room hypotension improved with IV fluids -Lactic acid 6.1 -Patient being admitted to ICU -IV fluids resuscitation. -IV vancomycin and cefepime -Wound culture--pending -Blood cultures ordered 2 -Vascular surgery following -MRI of the left Leg ruled out osteomalacia and abscess showed evidence of cellulitis and myositis #Severe peripheral vascular disease -Vascular surgery consulted #Severe lactic acidosis -Improved IV fluids -Discontinue metformin #Hypotension -Secondary to sepsis -Improved with IV fluids #Coronary disease status post stent -Beta gil and hold due to hypotension -Patient denies any chest pain or shortness of breath #Acute kidney injury -Improved -Most likely secondary to hypotension and prerenal azotemia possibly ATN -Hold diuretics and antihypertensive medications -Status post IV hydration -Renal ultrasound to rule ruled out obstruction -Avoid nephrotoxic agents #Acute CHF exacerbation -History of diastolic CHF -status post one-time dose of Lasix 40 mg IV push. 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 #Dyslipidemia -Resume all medications #Obesity BMI 34. #DVT prophylaxis subcutaneous heparin. #Full code
[2021-06-19] MEDS ORDERED: NITROGLYCERIN OINT 1 INCH/GM PACKET TOPICAL STA (16:33)
[2021-06-19 16:38] LABS: Glucose,Whole Blood 386 mg/dL (75-99)
[2021-06-19] MEDS ORDERED: HEPARIN SODIUM 1,000 UN/ML (10ML VL) IV PRN (16:44)
[2021-06-19] MEDS ORDERED: HEPARIN SODIUM 1,000 UN/ML (10ML VL) IV ONE (16:44)
[2021-06-19] MEDS: METOPROLOL TARTRATE 25 MG TAB PO SCH ×2 (16:50→21:43)
[2021-06-19 17:50] LABS: Basophils % (A) 0 %; Eosinophils # (A) 0.2 k/uL (0-0.7); Eosinophils % (A) 1 %; HCT 26.9 % (34.0-46.0); HGB 8.3 gm/dL (11.4-16.0); Hypochromasia Moderate; Lymphocytes % (A) 7 %; MCH 30.6 pg (25.0-35.0); MCHC 30.9 g/dL (31.0-37.0); Mean Platelet Volume 9.1; Monocytes # (A) 0.7 k/uL (0-1.0); Monocytes % (A) 5 %; Neutrophils # (A) 11.4 k/uL (1.3-7.7); Neutrophils % (A) 84 %; Platelet Count 463 k/uL (150-450); RBC 2.72 m/uL (3.80-5.40); RDW 13.7 % (11.5-15.5); WBC 13.5 k/uL (3.8-10.6)
[2021-06-19] MEDS: LACTATED RINGERS 1,000 ML IV SCH (18:03)
[2021-06-19] MEDS: HEPARIN SOD,PORK IN 0.45% NACL 25,000 UNIT in 0.45% NACL 1 250ML.BAG IV SCH (18:03)
[2021-06-19 18:08] LABS: INR 0.9 (<1.2); Partial Thromboplastin Time 22.9 sec (22.0-30.0); Prothrombin Time 9.8 sec (9.0-12.0)
[2021-06-19] MEDS ORDERED: INSULIN DETEMIR (LEVEMIR) 100 UNIT/ML SYR SQ SCH (21:00)
[2021-06-19 21:06] LABS: Glucose,Whole Blood 461 mg/dL (75-99)
[2021-06-19] MEDS: FAMOTIDINE 20 MG TAB PO SCH (21:43)
--- NOTE | 2021-06-19 22:29 | CONS ---
CONSULTATION HISTORY OF PRESENT ILLNESS: This is an 80-year-old lady with history of coronary artery disease status post prior angioplasty, insulin-requiring diabetes who is admitted to hospital with cellulitis and possible sepsis. She was in the ICU initially and subsequently had been transferred to the floor where this afternoon she developed sudden-onset shortness of breath and her EKG was thought to be abnormal due to which Cardiology has been consulted. At the time of my evaluation, she appears more comfortable at rest. Her troponin has come back elevated at 0.06. The admission troponin was normal. EKG shows sinus rhythm without any acute ST-T wave changes. The exact etiology for her shortness of breath is unclear. I am going to treat her as unstable angina at this time with IV heparin, nitro paste and a beta gil. She also received a small dose of Lasix and her symptoms are actually getting better. We will obtain a D-dimer and if necessary do a CT scan of the chest. PAST MEDICAL HISTORY: Significant for CAD status post angioplasty, diabetes. ALLERGIES: Are as charted. MEDICATIONS: Include aspirin, Lofibra, iron, insulin, Lopressor 25 b.i.d., metformin, gemfibrozil, Cozaar. FAMILY HISTORY: Negative for premature coronary artery disease. SOCIAL HISTORY: Negative for smoking, EtOH abuse or drug abuse. REVIEW OF SYSTEMS: HEENT is unremarkable. CARDIAC as described above. RESPIRATORY negative. GI negative. GENITOURINARY: Negative. ALLERGY/IMMUNOLOGY: Negative. SKIN negative. MUSCULOSKELETAL: Significant for cellulitis. PSYCHOSOCIAL: Negative. ENDOCRINE: Negative. DERM: Negative. CONSTITUTIONAL: Negative. ONCOLOGICAL negative. EXAM: Heart rate is 100 beats per minute. Blood pressure is 150/52. Respirations 18. CHEST exam reveals good air entry bilaterally. There are no crackles or rhonchi. HEART exam reveals first and second heart sounds. Systolic murmur at the apex. ABDOMEN is soft. Examination of EXTREMITIES reveals cellulitis involving left leg. Palpable pulses and mild bilateral leg edema. Troponin is elevated. EKG is as described above. ASSESSMENT: 1. Shortness of breath, rule out cardiac causes. 2. Elevated troponin. 3. Cellulitis. PLAN: Will treat the patient with IV heparin. Check D-dimer. Check an echocardiogram and if the troponins come back further elevated, she may need evaluation for CAD. MMODL / IJN: [id number] /
--- NOTE | 2021-06-19 22:42 | P.PN ---
Subjective Progress Note Date: 06/19/21 Principal diagnosis: Left leg wound and cellulitis Patient is 80 year old female with a past medical history significant for chronic nonhealing wound, left lower extremity admitted to the hospital with worsening pain to the left leg wound concerning for cellulitis. On today's evaluation that is 06/19/2021 the patient remains to be afebrile, the patient left leg pain has slightly decreased in intensity, the patient denies chest pain shortness of breath or cough no abdominal pain no diarrhea Objective - Vital Signs Vital signs: Vital Signs Temp 98.1 F 06/19/21 07:55 Pulse 100 06/19/21 11:30 Resp 18 06/19/21 07:55 BP 146/79 06/19/21 07:55 Pulse Ox 96 06/19/21 07:55 Intake & Output 06/18/21 06/19/21 06/19/21 18:59 06:59 18:59 Intake Total 520 1660 Output Total 800 1800 1900 Balance -280 -140 -1900 Weight 83.007 kg Intake: IV 520 1560 Sodium Chloride 0.9% 1, 520 1560 000 ml @ 130 mls/hr IV . Q7H42M [facility] Rx#:[id number] Intake, IV Titration 100 Amount Cefepime 2 gm In Sodium 100 Chloride 0.9% 100 ml @ 25 mls/hr IVPB Q12HR [facility] Rx #:[id number] Output: Urine 800 1800 1900 Other: Voiding Method Indwelling Catheter - Exam GENERAL DESCRIPTION: An elderly female lying in bed in no distress RESPIRATORY SYSTEM: Unlabored breathing , decreased breath sounds at bases HEART: S1 S2 regular rate and rhythm , ABDOMEN: Soft , no tenderness EXTREMITIES: Left leg wound is currently dressed no drainage on the dressing - Labs CBC & Chem 7: 06/19/21 17:06 06/19/21 06:02 Labs: Abnormal Lab Results - Last 24 Hours (Table) 06/18/21 06/18/21 06/19/21 Range/Units 16:23 20:23 06:02 WBC (4.50-10.00) X 10*3/uL RBC (4.10-5.20) X 10*6/uL Hgb (12.0-15.0) g/dL Hct (37.2-46.3) % MCV (80.0-97.0) fL MCHC (32.0-37.0) g/dL RDW (11.5-14.5) % Immature Gran # (0.00-0.04) X 10*3/uL Neutrophils # (1.80-7.70) X 10*3/uL Eosinophils # (0.04-0.35) X 10*3/uL Sodium 133 L (137-145) mmol/L Chloride 113 H (98-107) mmol/L Carbon Dioxide 20 L (22-30) mmol/L BUN 26 H (7-17) mg/dL Creatinine 1.12 H (0.52-1.04) mg/dL Glucose 175 H (74-99) mg/dL POC Glucose (mg/dL) 397 H 319 H (75-99) mg/dL Calcium 8.0 L (8.4-10.2) mg/dL Total Protein 5.6 L (6.3-8.2) g/dL Albumin 2.7 L (3.5-5.0) g/dL 06/19/21 06/19/21 06/19/21 Range/Units 06:02 07:18 11:15 WBC 10.86 H (4.50-10.00) X 10*3/uL RBC 2.48 L (4.10-5.20) X 10*6/uL Hgb 7.2 L (12.0-15.0) g/dL Hct 24.6 L (37.2-46.3) % MCV 99.2 H (80.0-97.0) fL MCHC 29.3 L (32.0-37.0) g/dL RDW 14.9 H (11.5-14.5) % Immature Gran # 0.08 H (0.00-0.04) X 10*3/uL Neutrophils # 8.02 H (1.80-7.70) X 10*3/uL Eosinophils # 0.45 H (0.04-0.35) X 10*3/uL Sodium (137-145) mmol/L Chloride (98-107) mmol/L Carbon Dioxide (22-30) mmol/L BUN (7-17) mg/dL Creatinine (0.52-1.04) mg/dL Glucose (74-99) mg/dL POC Glucose (mg/dL) 171 H 260 H (75-99) mg/dL Calcium (8.4-10.2) mg/dL Total Protein (6.3-8.2) g/dL Albumin (3.5-5.0) g/dL Microbiology - Last 24 Hours (Table) 06/17/21 16:37 Gram Stain - Preliminary Leg - Left Wound Culture - Preliminary Gram Neg Bacilli 06/17/21 10:53 Blood Culture - Preliminary Blood No Growth after 24 hours 06/17/21 10:53 Blood Culture - Preliminary Blood No Growth after 24 hours Assessment and Plan (1) Leg wound, left Current Visit: Yes Status: Acute Code(s): S81.802A - UNSPECIFIED OPEN WOUND, LEFT LOWER LEG, INITIAL ENCOUNTER SNOMED Code(s): 424146190 Plan: 1patient with chronic nonhealing wound to the left lower extremity in this patient presented to hospital with increasing pain swelling redness and concern for cellulitis apparently the patient did have a chronic wound and has been exposed to antibiotic will need to cover for both gram-positive as well as gram- negative pathogen. 2MRI did not show any evidence of Osteomyelitis, patient is scheduled for surgical debridement at which time deep culture should be obtained which has been ordered 3patient to continue with vancomycin pharmacy to dose and cefepime while waiting for the cultures to finalize Time with Patient: Less than 30
[2021-06-20 01:34] LABS: % Iron Saturation 4.8 (12.00-45.00)
[2021-06-20 06:43] LABS: Glucose,Whole Blood 276 mg/dL (75-99)
[2021-06-20] MEDS: PANTOPRAZOLE 40 MG TABLET PO SCH (06:46)
[2021-06-20] MEDS: INSULIN ASPART (NovoLOG) 100 UNIT/ML VIAL SQ SCH ×4 (06:46→21:05)
[2021-06-20] MEDS ORDERED: INSULIN DETEMIR (LEVEMIR) 100 UNIT/ML SYR SQ SCH (07:00)
--- NOTE | 2021-06-20 07:20 | XR ---
EXAMINATION TYPE: XR chest 1V portable DATE OF EXAM: 06/20/2021 COMPARISON: 06/19/2021 HISTORY: Shortness of breath TECHNIQUE: Single frontal view of the chest is obtained. FINDINGS: There is persistent pulmonary vascular congestion and mild interstitial edema. Heart size is mildly prominent. There is no large pleural effusion. There is no pneumothorax. There is scoliosis of the thoracic spin e otherwise the osseous structures are intact. IMPRESSION: No change in the pulmonary vascular congestion and interstitial edema.
[2021-06-20 08:11] LABS: Basophils # (A) 0.1 k/uL (0-0.2); Basophils % (A) 1 %; Eosinophils # (A) 0.3 k/uL (0-0.7); Eosinophils % (A) 3 %; HCT 23.9 % (34.0-46.0); HGB 7.5 gm/dL (11.4-16.0); Hypochromasia Slight; Lymphocytes # (A) 1.7 k/uL (1.0-4.8); Lymphocytes % (A) 15 %; MCH 30.6 pg (25.0-35.0); MCHC 31.5 g/dL (31.0-37.0); Mean Platelet Volume 7.9; Monocytes # (A) 0.6 k/uL (0-1.0); Monocytes % (A) 5 %; Neutrophils # (A) 8.5 k/uL (1.3-7.7); Neutrophils % (A) 74 %; Platelet Count 456 k/uL (150-450); RBC 2.46 m/uL (3.80-5.40); RDW 14.2 % (11.5-15.5); WBC 11.4 k/uL (3.8-10.6)
[2021-06-20 08:26] LABS: Calcium 8.3 mg/dL (8.4-10.2); Potassium 4.7 mmol/L (3.5-5.1); Total Bilirubin 0.5 mg/dL (0.2-1.3); Total Protein 5.9 g/dL (6.3-8.2)
[2021-06-20 08:28] LABS: Partial Thromboplastin Time 52.4 sec (22.0-30.0); Prothrombin Time 10.8 sec (9.0-12.0)
[2021-06-20] MEDS: CYANOCOBALAMIN 500 MCG TAB PO SCH (08:50)
[2021-06-20] MEDS: ASPIRIN 81 MG PO SCH (08:50)
[2021-06-20] MEDS: CHOLECALCIFEROL 25 MCG (1000 IU) TABLET PO SCH (08:50)
[2021-06-20] MEDS: ASCORBIC ACID 500 MG TAB PO SCH (08:50)
[2021-06-20] MEDS: CEFEPIME 2 GM in SODIUM CHLORIDE 0.9% 100 ML IVPB SCH ×2 (08:51→21:06)
[2021-06-20] MEDS: PREGABALIN 75 MG CAP PO SCH ×2 (08:51→21:05)
[2021-06-20] MEDS: METOPROLOL TARTRATE 25 MG TAB PO SCH (08:51)
[2021-06-20] MEDS: FENOFIBRATE 160 MG TAB PO SCH (08:51)
[2021-06-20] MEDS: LACTOBACILLUS ACIDOPH & BULGAR 1 EACH PACKET PO SCH (08:51)
[2021-06-20] MEDS: FERROUS SULFATE 325 MG TAB PO SCH (08:51)
--- NOTE | 2021-06-20 08:55 | NM ---
EXAMINATION TYPE: NM pul perfusion DATE OF EXAM: 06/20/2021 COMPARISON: None HISTORY: Shortness of breath Following administration of 5.3 mCi Tc 99m MAA. Images obtained post injection. Patient could not to lerate the ventilation scan was not performed. FINDINGS: There are no definite perfusion defects. IMPRESSION: Low probability for pulmonary embolism.
[2021-06-20] MEDS ORDERED: IV FLUID CONTINUATION 1,000 ML IV ONE (10:36)
[2021-06-20] MEDS ORDERED: ALBUTEROL NEBULIZED 2.5 MG/3 ML INHALATION STA (11:02)
[2021-06-20 11:16] LABS: Glucose,Whole Blood 202 mg/dL (75-99)
[2021-06-20] MEDS ORDERED: IV FLUID CONTINUATION 800 ML IV ONE (11:34)
--- NOTE | 2021-06-20 12:26 | P.PN ---
Subjective Progress Note Date: 06/20/21 Patient appears to pad a cardiac event in the past 24 hours with elevated troponins. Because the planned surgical procedure is elective/nonurgent I've postpone the surgery until further cardiac evaluation and recommendations are forthcoming. I discussed this with the patient, and her family. All questions were answered to their satisfaction. Objective - Vital Signs Vital signs: Vital Signs Temp 98.1 F 06/20/21 08:00 Pulse 85 06/20/21 11:48 Resp 22 06/20/21 11:48 BP 98/50 06/20/21 11:48 Pulse Ox 97 06/20/21 11:48 Intake & Output 06/19/21 06/20/21 06/20/21 18:59 06:59 18:59 Intake Total 65.079 197.81 Output Total 2400 1000 Balance -2400 -934.921 197.81 Weight 83.007 kg Intake: IV 100 Intake, IV Titration 65.079 97.81 Amount Heparin Sod,Pork in 0.45% 65.079 97.81 NaCl 25,000 unit In 0.45 % NaCl 1 250ml.bag @ 12 UNITS/KG/HR 9.961 mls/hr IV .Q24H [facility] Rx#: [id number] Output: Urine 2400 1000 Other: Voiding Method Indwelling Catheter - Labs CBC & Chem 7: 06/20/21 07:43 06/20/21 07:43 Labs: Abnormal Lab Results - Last 24 Hours (Table) 06/19/21 06/19/21 06/19/21 Range/Units 06:02 15:09 16:37 WBC (3.8-10.6) k/uL RBC (3.80-5.40) m/uL Hgb (11.4-16.0) gm/dL Hct (34.0-46.0) % MCHC (31.0-37.0) g/dL Plt Count (150-450) k/uL Neutrophils # (1.3-7.7) k/uL APTT (22.0-30.0) sec D-Dimer (<0.60) mg/L FEU Sodium (137-145) mmol/L Carbon Dioxide (22-30) mmol/L BUN (7-17) mg/dL Creatinine (0.52-1.04) mg/dL Glucose (74-99) mg/dL POC Glucose (mg/dL) 386 H (75-99) mg/dL Calcium (8.4-10.2) mg/dL Iron 15 L (50-170) ug/dL % Saturation 4.80 L (12.00-45.00) Troponin I 0.065 H* (0.000-0.034) ng/mL Total Protein (6.3-8.2) g/dL Albumin (3.5-5.0) g/dL Vitamin B12 1305.0 H (200.0-944.0) pg/mL 06/19/21 06/19/21 06/19/21 Range/Units 17:06 17:06 21:03 WBC 13.5 H (3.8-10.6) k/uL RBC 2.72 L (3.80-5.40) m/uL Hgb 8.3 L (11.4-16.0) gm/dL Hct 26.9 L (34.0-46.0) % MCHC 30.9 L (31.0-37.0) g/dL Plt Count 463 H (150-450) k/uL Neutrophils # 11.4 H (1.3-7.7) k/uL APTT (22.0-30.0) sec D-Dimer 1.58 H (<0.60) mg/L FEU Sodium (137-145) mmol/L Carbon Dioxide (22-30) mmol/L BUN (7-17) mg/dL Creatinine (0.52-1.04) mg/dL Glucose (74-99) mg/dL POC Glucose (mg/dL) 461 H (75-99) mg/dL Calcium (8.4-10.2) mg/dL Iron (50-170) ug/dL % Saturation (12.00-45.00) Troponin I (0.000-0.034) ng/mL Total Protein (6.3-8.2) g/dL Albumin (3.5-5.0) g/dL Vitamin B12 (200.0-944.0) pg/mL 06/19/21 06/20/21 06/20/21 Range/Units 21:40 00:00 06:41 WBC (3.8-10.6) k/uL RBC (3.80-5.40) m/uL Hgb (11.4-16.0) gm/dL Hct (34.0-46.0) % MCHC (31.0-37.0) g/dL Plt Count (150-450) k/uL Neutrophils # (1.3-7.7) k/uL APTT 40.3 H (22.0-30.0) sec D-Dimer (<0.60) mg/L FEU Sodium (137-145) mmol/L Carbon Dioxide (22-30) mmol/L BUN (7-17) mg/dL Creatinine (0.52-1.04) mg/dL Glucose (74-99) mg/dL POC Glucose (mg/dL) 276 H (75-99) mg/dL Calcium (8.4-10.2) mg/dL Iron (50-170) ug/dL % Saturation (12.00-45.00) Troponin I 0.941 H* (0.000-0.034) ng/mL Total Protein (6.3-8.2) g/dL Albumin (3.5-5.0) g/dL Vitamin B12 (200.0-944.0) pg/mL 06/20/21 06/20/21 06/20/21 Range/Units 07:36 07:43 07:43 WBC 11.4 H (3.8-10.6) k/uL RBC 2.46 L (3.80-5.40) m/uL Hgb 7.5 L (11.4-16.0) gm/dL Hct 23.9 L (34.0-46.0) % MCHC (31.0-37.0) g/dL Plt Count 456 H (150-450) k/uL Neutrophils # 8.5 H (1.3-7.7) k/uL APTT 52.4 H (22.0-30.0) sec D-Dimer (<0.60) mg/L FEU Sodium 131 L (137-145) mmol/L Carbon Dioxide 18 L (22-30) mmol/L BUN 26 H (7-17) mg/dL Creatinine 1.22 H (0.52-1.04) mg/dL Glucose 240 H (74-99) mg/dL POC Glucose (mg/dL) (75-99) mg/dL Calcium 8.3 L (8.4-10.2) mg/dL Iron (50-170) ug/dL % Saturation (12.00-45.00) Troponin I (0.000-0.034) ng/mL Total Protein 5.9 L (6.3-8.2) g/dL Albumin 3.0 L (3.5-5.0) g/dL Vitamin B12 (200.0-944.0) pg/mL 06/20/21 Range/Units 11:14 WBC (3.8-10.6) k/uL RBC (3.80-5.40) m/uL Hgb (11.4-16.0) gm/dL Hct (34.0-46.0) % MCHC (31.0-37.0) g/dL Plt Count (150-450) k/uL Neutrophils # (1.3-7.7) k/uL APTT (22.0-30.0) sec D-Dimer (<0.60) mg/L FEU Sodium (137-145) mmol/L Carbon Dioxide (22-30) mmol/L BUN (7-17) mg/dL Creatinine (0.52-1.04) mg/dL Glucose (74-99) mg/dL POC Glucose (mg/dL) 202 H (75-99) mg/dL Calcium (8.4-10.2) mg/dL Iron (50-170) ug/dL % Saturation (12.00-45.00) Troponin I (0.000-0.034) ng/mL Total Protein (6.3-8.2) g/dL Albumin (3.5-5.0) g/dL Vitamin B12 (200.0-944.0) pg/mL Microbiology - Last 24 Hours (Table) 06/17/21 16:37 Gram Stain - Final Leg - Left Wound Culture - Final Citrobacter amalonaticus Klebsiella pneumoniae 06/17/21 10:53 Blood Culture - Preliminary Blood No Growth after 48 hours 06/17/21 10:53 Blood Culture - Preliminary Blood No Growth after 48 hours
--- NOTE | 2021-06-20 12:38 | P.ANPRN ---
Procedure Note - Anesthesia - Nerve Block Performed Left Adductor Canal Single Time Out Performed: Yes Date of Procedure: 06/20/21 Procedure Start Time: 11:13 Procedure Stop Time: 11:20 Location of Patient: PreOp Indication: Acute Post-Operative Pain, Analgesia Preparation: Sterile Prep Position: Supine Needle Types: Pajunk Needle Gauge: 21 Ultrasound used to visualize needle placement: Yes Ultrasound used to observe medication spread: Yes Injectate: 0.5% Ropivacaine (see comment for volume) (15 ml +15 ml NS) Blood Aspirated: No Pain Paresthesia on Injection Noted: No Resistance on Injection: Normal Image Stored and Saved: Yes Events: Uneventful and Well Tolerated (The block was done for postop pain control and for surgical analgesia, and after the block was done , the procedure was canceled by the surgeon, because the patient had cardiac event night, and patient will be evaluated by cardiology services)
--- NOTE | 2021-06-20 12:40 | P.ANPRN ---
Procedure Note - Anesthesia - Nerve Block Performed Left Popliteal Single Time Out Performed: Yes Date of Procedure: 06/20/21 Procedure Start Time: Procedure Stop Time: Location of Patient: PreOp Indication: Acute Post-Operative Pain, Analgesia Preparation: Sterile Prep Position: Right Lateral Needle Types: Pajunk Needle Gauge: 21 Ultrasound used to visualize needle placement: Yes Ultrasound used to observe medication spread: Yes Injectate: 0.5% Ropivacaine (see comment for volume) (15 ml +15 ml NS) Blood Aspirated: No Pain Paresthesia on Injection Noted: No Resistance on Injection: Normal Image Stored and Saved: Yes Events: Uneventful and Well Tolerated (The surgery was canceled after the block was done, because patient had cardiac event at night and the surgeon requested cardiology clearance before we can proceed with the surgery)
--- NOTE | 2021-06-20 12:42 | ECHOF ---
Referral Reason:chest pain MEASUREMENTS -------- HEIGHT: 154.9 cm WEIGHT: 83.0 kg BP: 121/88 RVIDd: 3.0 cm (< 3.3) IVSd: 1.3 cm (0.6 - 1.1) LVIDd: 4.5 cm (3.9 - 5.3) LVPWd: 1.2 cm (0.6 - 1.1) IVSs: 1.6 cm LVIDs: 3.2 cm LVPWs: 1.7 cm LA Diam: 3.4 cm (2.7 - 3.8) LAESV Index (A-L): 30.59 ml/m Ao Diam: 3.0 cm (2.0 - 3.7) AV Cusp: 1.9 cm (1.5 - 2.6) MV EXCURSION: 17.701 mm (> 18.000) MV EF SLOPE: 104 mm/s (70 - 150) EPSS: 0.7 cm MV E Boubacar: 1.26 m/s MV DecT: 222 ms MV A Boubacar: 1.33 m/s MV E/A Ratio: 0.95 AV maxP.05 mmHg AV meanP.02 mmHg RAP: 5.00 mmHg RVSP: 50.24 mmHg FINDINGS -------- Sinus rhythm. This was a technically adequate study. The left ventricular size is normal. There is mild concentric left ventricular hypertrophy. Overa ll left ventricular systolic function is mild-moderately impaired with, an EF between 40 - 45 %. Ap ical anterior LV wall motion is hypokinetic. Apical lateral LV wall motion is hypokinetic. Apic al inferior LV wall motion is hypokinetic. Apical septum LV wall motion is hypokinetic. The right ventricle is normal in size. LA is midly dilated 29-33ml/m2. The right atrium is normal in size. Interatrial and interventricular septum intact. There is mild aortic valve sclerosis. Peak/mean gradient across the Aortic Valve is 17.05mmHg / 9.0 2mmHg. Mild mitral regurgitation is present. Jfej-[id number] tricuspid regurgitation present. There is moderate pulmonary hypertension. The r ight ventricular systolic pressure, as measured by Doppler, is 50.24mmHg. Trace/mild (physiologic) pulmonic regurgitation. The aortic root size is normal. Normal inferior vena cava with normal inspiratory collapse consistent with estimated right atrial pre ssure of 5 mmHg. The inferior vena cava is mildly dilated. There is no pericardial effusion. CONCLUSIONS -------- 1. The left ventricular size is normal. 2. There is mild concentric left ventricular hypertrophy. 3. Overall left ventricular systolic function is mild-moderately impaired with, an EF between 40 - 45 %. 4. Apical anterior LV wall motion is hypokinetic. 5. Apical lateral LV wall motion is hypokinetic. 6. Apical inferior LV wall motion is hypokinetic. 7. Apical septum LV wall motion is hypokinetic. 8. LA is midly dilated 29-33ml/m2. 9. There is mild aortic valve sclerosis. 10. Peak/mean gradient across the Aortic Valve is 17.05mmHg / 9.02mmHg. 11. Mild mitral regurgitation is present. 12. Kxfy-dg-zpphvwwg tricuspid regurgitation present. 13. There is moderate pulmonary hypertension. 14. The right ventricular systolic pressure, as measured by Doppler, is 50.24mmHg. 15. Trace/mild (physiologic) pulmonic regurgitation. 16. There is no pericardial effusion. UX VISUAL DESIGNER: Brandie Jimenez RDCS
--- NOTE | 2021-06-20 12:50 | P.PN ---
Subjective Progress Note Date: 06/20/21 This is an 80-year-old female with a past history of coronary artery disease status post prior angioplasty, insulin requiring diabetes admitted to the hospital for cellulitis and possible sepsis. During her admission she developed sudden onset of shortness of breath and her EKG was found to be abnormal due to which cardiology was consulted 3 patient does not follow with a professional shopper. Patient's troponin was normal upon admission Second troponin 0.065, third troponin 0.941. The etiology of patient's sudden shortness of breath is unclear. Patient is currently being treated for unstable angina. Patient is on IV heparin, Nitropaste, and beta gil. Patient's d-dimer was positive, her VQ scan was negative for pulmonary embolism. Patient's creatinine come back improved today at 1.2 patient was to have debridement of her nonhealing left lower extremity ulcer. This is been aborted due to elevated troponins and increased shortness of breath. Patient is examined today resting in bed. She reports she does not feel any better than yesterday. She still has mild shortness of breath at rest and moderate with activity. Patient has IO wheezing on exam., She has moderate bilateral lower extremity edema. She denies chest pain, dizziness, or syncope. Patient's heparin drip was restarted, after being stopped due to possible wound debridement procedure. It is recommended patient received breathing treatments for wheezing. Patient's chest x-ray today shows no change in pulmonary vascular congestion and interstitial edema from prior study. 2-D echo pending. Labs reviewed WBC 11.4, hemoglobin 7.5, sodium 131, BUN 26, creatinine 1.2, troponin elevated 2 Objective - Vital Signs Vital signs: Vital Signs Temp 98.1 F 06/20/21 08:00 Pulse 85 06/20/21 11:48 Resp 22 06/20/21 11:48 BP 98/50 06/20/21 11:48 Pulse Ox 97 06/20/21 11:48 Intake & Output 06/19/21 06/20/21 06/20/21 18:59 06:59 18:59 Intake Total 65.079 197.81 Output Total 2400 1000 Balance -2400 -934.921 197.81 Weight 83.007 kg Intake: IV 100 Intake, IV Titration 65.079 97.81 Amount Heparin Sod,Pork in 0.45% 65.079 97.81 NaCl 25,000 unit In 0.45 % NaCl 1 250ml.bag @ 12 UNITS/KG/HR 9.961 mls/hr IV .Q24H [facility] Rx#: [id number] Output: Urine 2400 1000 Other: Voiding Method Indwelling Catheter - Exam PHYSICAL EXAM: VITAL SIGNS: Reviewed. GENERAL: Well-developed in no acute distress. HEENT: Head is normocephalic. Pupils are equal, round. Sclerae anicteric. Mucous membranes of the mouth are moist. NECK: Supple. No JVD or thyromegaly RESPIRATORY: Respirations even and unlabored. Lungs wheezy and diminished to auscultation bilaterally. CARDIO: Regular rate and rhythm. S1 and S2 heard. No or gallops. Systolic murmur at the apex EXTREMITIES: Normal range of motion. No clubbing or cyanosis. Peripheral pulses intact. bilateral lower extremity edema left lower extremity nonhealing wound, cellulitis NEURO: Orientated to person, time, mood is appropriate - Labs CBC & Chem 7: 06/20/21 07:43 06/20/21 07:43 Labs: Abnormal Lab Results - Last 24 Hours (Table) 06/19/21 06/19/21 06/19/21 Range/Units 06:02 15:09 16:37 WBC (3.8-10.6) k/uL RBC (3.80-5.40) m/uL Hgb (11.4-16.0) gm/dL Hct (34.0-46.0) % MCHC (31.0-37.0) g/dL Plt Count (150-450) k/uL Neutrophils # (1.3-7.7) k/uL APTT (22.0-30.0) sec D-Dimer (<0.60) mg/L FEU Sodium (137-145) mmol/L Carbon Dioxide (22-30) mmol/L BUN (7-17) mg/dL Creatinine (0.52-1.04) mg/dL Glucose (74-99) mg/dL POC Glucose (mg/dL) 386 H (75-99) mg/dL Calcium (8.4-10.2) mg/dL Iron 15 L (50-170) ug/dL % Saturation 4.80 L (12.00-45.00) Troponin I 0.065 H* (0.000-0.034) ng/mL Total Protein (6.3-8.2) g/dL Albumin (3.5-5.0) g/dL Vitamin B12 1305.0 H (200.0-944.0) pg/mL 06/19/21 06/19/21 06/19/21 Range/Units 17:06 17:06 21:03 WBC 13.5 H (3.8-10.6) k/uL RBC 2.72 L (3.80-5.40) m/uL Hgb 8.3 L (11.4-16.0) gm/dL Hct 26.9 L (34.0-46.0) % MCHC 30.9 L (31.0-37.0) g/dL Plt Count 463 H (150-450) k/uL Neutrophils # 11.4 H (1.3-7.7) k/uL APTT (22.0-30.0) sec D-Dimer 1.58 H (<0.60) mg/L FEU Sodium (137-145) mmol/L Carbon Dioxide (22-30) mmol/L BUN (7-17) mg/dL Creatinine (0.52-1.04) mg/dL Glucose (74-99) mg/dL POC Glucose (mg/dL) 461 H (75-99) mg/dL Calcium (8.4-10.2) mg/dL Iron (50-170) ug/dL % Saturation (12.00-45.00) Troponin I (0.000-0.034) ng/mL Total Protein (6.3-8.2) g/dL Albumin (3.5-5.0) g/dL Vitamin B12 (200.0-944.0) pg/mL 06/19/21 06/20/21 06/20/21 Range/Units 21:40 00:00 06:41 WBC (3.8-10.6) k/uL RBC (3.80-5.40) m/uL Hgb (11.4-16.0) gm/dL Hct (34.0-46.0) % MCHC (31.0-37.0) g/dL Plt Count (150-450) k/uL Neutrophils # (1.3-7.7) k/uL APTT 40.3 H (22.0-30.0) sec D-Dimer (<0.60) mg/L FEU Sodium (137-145) mmol/L Carbon Dioxide (22-30) mmol/L BUN (7-17) mg/dL Creatinine (0.52-1.04) mg/dL Glucose (74-99) mg/dL POC Glucose (mg/dL) 276 H (75-99) mg/dL Calcium (8.4-10.2) mg/dL Iron (50-170) ug/dL % Saturation (12.00-45.00) Troponin I 0.941 H* (0.000-0.034) ng/mL Total Protein (6.3-8.2) g/dL Albumin (3.5-5.0) g/dL Vitamin B12 (200.0-944.0) pg/mL 06/20/21 06/20/21 06/20/21 Range/Units 07:36 07:43 07:43 WBC 11.4 H (3.8-10.6) k/uL RBC 2.46 L (3.80-5.40) m/uL Hgb 7.5 L (11.4-16.0) gm/dL Hct 23.9 L (34.0-46.0) % MCHC (31.0-37.0) g/dL Plt Count 456 H (150-450) k/uL Neutrophils # 8.5 H (1.3-7.7) k/uL APTT 52.4 H (22.0-30.0) sec D-Dimer (<0.60) mg/L FEU Sodium 131 L (137-145) mmol/L Carbon Dioxide 18 L (22-30) mmol/L BUN 26 H (7-17) mg/dL Creatinine 1.22 H (0.52-1.04) mg/dL Glucose 240 H (74-99) mg/dL POC Glucose (mg/dL) (75-99) mg/dL Calcium 8.3 L (8.4-10.2) mg/dL Iron (50-170) ug/dL % Saturation (12.00-45.00) Troponin I (0.000-0.034) ng/mL Total Protein 5.9 L (6.3-8.2) g/dL Albumin 3.0 L (3.5-5.0) g/dL Vitamin B12 (200.0-944.0) pg/mL 06/20/21 Range/Units 11:14 WBC (3.8-10.6) k/uL RBC (3.80-5.40) m/uL Hgb (11.4-16.0) gm/dL Hct (34.0-46.0) % MCHC (31.0-37.0) g/dL Plt Count (150-450) k/uL Neutrophils # (1.3-7.7) k/uL APTT (22.0-30.0) sec D-Dimer (<0.60) mg/L FEU Sodium (137-145) mmol/L Carbon Dioxide (22-30) mmol/L BUN (7-17) mg/dL Creatinine (0.52-1.04) mg/dL Glucose (74-99) mg/dL POC Glucose (mg/dL) 202 H (75-99) mg/dL Calcium (8.4-10.2) mg/dL Iron (50-170) ug/dL % Saturation (12.00-45.00) Troponin I (0.000-0.034) ng/mL Total Protein (6.3-8.2) g/dL Albumin (3.5-5.0) g/dL Vitamin B12 (200.0-944.0) pg/mL Microbiology - Last 24 Hours (Table) 06/17/21 16:37 Gram Stain - Final Leg - Left Wound Culture - Final Citrobacter amalonaticus Klebsiella pneumoniae 06/17/21 10:53 Blood Culture - Preliminary Blood No Growth after 48 hours 06/17/21 10:53 Blood Culture - Preliminary Blood No Growth after 48 hours Assessment and Plan Assessment: Shortness of breath, rule out cardiac cause Elevated troponin Cellulitis Plan: Continue with IV heparin Echocardiogram pending
[2021-06-20] MEDS: VANCOMYCIN 1,500 MG in SODIUM CHLORIDE 0.9% 250 ML IVPB SCH (13:13)
--- NOTE | 2021-06-20 13:41 | XR ---
EXAMINATION TYPE: XR chest 1V portable DATE OF EXAM: 06/20/2021 COMPARISON: 06/20/2021 HISTORY: Shortness of breath TECHNIQUE: Single frontal view of the chest is obtained. FINDINGS: There is mild cardiomegaly, moderate pulmonary vascular congestion and interstitial edema. Is a probable small left pleural effusion as well. The findings are most consistent with moderate CH F. IMPRESSION: Most consistent with moderate CHF.
[2021-06-20] MEDS: ALPRAZolam 0.25 MG TAB PO PRN (15:54)
--- NOTE | 2021-06-20 16:06 | P.PN ---
Subjective Progress Note Date: 06/20/21 History of Present Illness H&P Date: 06/17/21 Chief Complaint: Infected left leg ulcer for severe pain and tenderness 80-year-old female, seen in the emergency department. She presented to the emergency room with a chief complaint of severe left leg pain with infected ulcer. She developed this ulcer and lost January 2021. The patient has had debridement, by Dr. Triana and Dr. Herrera first one on April 2 one on May. The patient comes into the emergency room, because of weakness. She has a low blood pressure. She is a lactic acid is 6. The primary service was concerned about sepsis. The patient is also complaining about left foot pain, numbness in her left foot, and elevated blood sugar. The ulcer on the medial left leg, has been present for many months, and has gotten worse. There is no fever or chills. The patient has a history of diabetes, hyperlipidemia, hypertension, GERD, osteoarthritis, peripheral vascular occlusive disease, diabetic neuropathy, CAD, with previous heart catheterization and stent placemen t. White count 10.3, hemoglobin 8.7, hematocrit 27.4, and platelet count 520,000. Sodium 135, potassium 4.9, chlorides 98, CO2 22, anion gap 15, BUN 69, and creatinine 1.66. Lactic acid is 6.1. Urine is light yellow and cloudy. There is moderate blood. There is 4+ glucose. There is many bacteria. The patient is not having any urinary tract symptoms. X-rays of the leg and foot, showed only soft tissue changes. The patient is received Rocephin and vancomycin in the ER. Blood pressure has been only in the mid 70s, systolic. She is being transferred to ICU.discussed with the manager urology Dr. Comer Interval history: 06/19 Patient was examined at the bedside. Patient was transferred out of the ICU overnight Patient is complaining of shortness of breath and a chest x-ray showed interstitial edema. Patient was given a one-time dose of Lasix 40 mg IV push by pulmonary service. Patient denies any chest pain. Pending cardiology consultation 06/20 patient surgery was canceled today due to worsening shortness of breath and elevated troponin. VQ scan was low probability for PE. Cardiology was notified about positive troponin. Objective - Vital Signs Vital signs: Vital Signs Temp 98.1 F 06/20/21 08:00 Pulse 85 06/20/21 12:00 Resp 18 06/20/21 12:00 BP 106/70 06/20/21 12:00 Pulse Ox 99 06/20/21 12:00 Intake & Output 06/19/21 06/20/21 06/20/21 18:59 06:59 18:59 Intake Total 65.079 317.81 Output Total 2400 1000 Balance -2400 -934.921 317.81 Weight 83.007 kg Intake: IV 100 Intake, IV Titration 65.079 97.81 Amount Heparin Sod,Pork in 0.45% 65.079 97.81 NaCl 25,000 unit In 0.45 % NaCl 1 250ml.bag @ 12 UNITS/KG/HR 9.961 mls/hr IV .Q24H [facility] Rx#: [id number] Oral 120 Output: Urine 2400 1000 Other: Voiding Method Indwelling Catheter Indwelling Catheter - Exam General: non toxic, no distress, appears at stated age Derm: warm, dry Head: atraumatic, normocephalic, symmetric Eyes: EOMI, no lid lag, anicteric sclera Mouth: no lip lesion, mucus membranes moist Cardiovascular: S1S2 reg, no murmur, positive posterior tibial pulse bilateral, Lungs: CTA bilateral, no rhonchi, no rales , no accessory muscle use Abdominal: soft, nontender to palpation, no guarding, no appreciable organomegaly Ext: Left leg ulcer 7 x 6 cm deep with necrotic tissue and pus surrounding cellulitis and edema. Tender to palpation Neuro: CN II-XI grossly intact, no focal neuro deficits Psych: Alert, oriented, appropriate affect - Labs CBC & Chem 7: 06/20/21 07:43 06/20/21 07:43 Labs: Abnormal Lab Results - Last 24 Hours (Table) 06/19/21 06/19/21 06/19/21 Range/Units 06:02 15:09 16:37 WBC (3.8-10.6) k/uL RBC (3.80-5.40) m/uL Hgb (11.4-16.0) gm/dL Hct (34.0-46.0) % MCHC (31.0-37.0) g/dL Plt Count (150-450) k/uL Neutrophils # (1.3-7.7) k/uL APTT (22.0-30.0) sec D-Dimer (<0.60) mg/L FEU Sodium (137-145) mmol/L Carbon Dioxide (22-30) mmol/L BUN (7-17) mg/dL Creatinine (0.52-1.04) mg/dL Glucose (74-99) mg/dL POC Glucose (mg/dL) 386 H (75-99) mg/dL Calcium (8.4-10.2) mg/dL Iron 15 L (50-170) ug/dL % Saturation 4.80 L (12.00-45.00) Troponin I 0.065 H* (0.000-0.034) ng/mL Total Protein (6.3-8.2) g/dL Albumin (3.5-5.0) g/dL Vitamin B12 1305.0 H (200.0-944.0) pg/mL 06/19/21 06/19/21 06/19/21 Range/Units 17:06 17:06 21:03 WBC 13.5 H (3.8-10.6) k/uL RBC 2.72 L (3.80-5.40) m/uL Hgb 8.3 L (11.4-16.0) gm/dL Hct 26.9 L (34.0-46.0) % MCHC 30.9 L (31.0-37.0) g/dL Plt Count 463 H (150-450) k/uL Neutrophils # 11.4 H (1.3-7.7) k/uL APTT (22.0-30.0) sec D-Dimer 1.58 H (<0.60) mg/L FEU Sodium (137-145) mmol/L Carbon Dioxide (22-30) mmol/L BUN (7-17) mg/dL Creatinine (0.52-1.04) mg/dL Glucose (74-99) mg/dL POC Glucose (mg/dL) 461 H (75-99) mg/dL Calcium (8.4-10.2) mg/dL Iron (50-170) ug/dL % Saturation (12.00-45.00) Troponin I (0.000-0.034) ng/mL Total Protein (6.3-8.2) g/dL Albumin (3.5-5.0) g/dL Vitamin B12 (200.0-944.0) pg/mL 06/19/21 06/20/21 06/20/21 Range/Units 21:40 00:00 06:41 WBC (3.8-10.6) k/uL RBC (3.80-5.40) m/uL Hgb (11.4-16.0) gm/dL Hct (34.0-46.0) % MCHC (31.0-37.0) g/dL Plt Count (150-450) k/uL Neutrophils # (1.3-7.7) k/uL APTT 40.3 H (22.0-30.0) sec D-Dimer (<0.60) mg/L FEU Sodium (137-145) mmol/L Carbon Dioxide (22-30) mmol/L BUN (7-17) mg/dL Creatinine (0.52-1.04) mg/dL Glucose (74-99) mg/dL POC Glucose (mg/dL) 276 H (75-99) mg/dL Calcium (8.4-10.2) mg/dL Iron (50-170) ug/dL % Saturation (12.00-45.00) Troponin I 0.941 H* (0.000-0.034) ng/mL Total Protein (6.3-8.2) g/dL Albumin (3.5-5.0) g/dL Vitamin B12 (200.0-944.0) pg/mL 06/20/21 06/20/21 06/20/21 Range/Units 07:36 07:43 07:43 WBC 11.4 H (3.8-10.6) k/uL RBC 2.46 L (3.80-5.40) m/uL Hgb 7.5 L (11.4-16.0) gm/dL Hct 23.9 L (34.0-46.0) % MCHC (31.0-37.0) g/dL Plt Count 456 H (150-450) k/uL Neutrophils # 8.5 H (1.3-7.7) k/uL APTT 52.4 H (22.0-30.0) sec D-Dimer (<0.60) mg/L FEU Sodium 131 L (137-145) mmol/L Carbon Dioxide 18 L (22-30) mmol/L BUN 26 H (7-17) mg/dL Creatinine 1.22 H (0.52-1.04) mg/dL Glucose 240 H (74-99) mg/dL POC Glucose (mg/dL) (75-99) mg/dL Calcium 8.3 L (8.4-10.2) mg/dL Iron (50-170) ug/dL % Saturation (12.00-45.00) Troponin I (0.000-0.034) ng/mL Total Protein 5.9 L (6.3-8.2) g/dL Albumin 3.0 L (3.5-5.0) g/dL Vitamin B12 (200.0-944.0) pg/mL 06/20/21 Range/Units 11:14 WBC (3.8-10.6) k/uL RBC (3.80-5.40) m/uL Hgb (11.4-16.0) gm/dL Hct (34.0-46.0) % MCHC (31.0-37.0) g/dL Plt Count (150-450) k/uL Neutrophils # (1.3-7.7) k/uL APTT (22.0-30.0) sec D-Dimer (<0.60) mg/L FEU Sodium (137-145) mmol/L Carbon Dioxide (22-30) mmol/L BUN (7-17) mg/dL Creatinine (0.52-1.04) mg/dL Glucose (74-99) mg/dL POC Glucose (mg/dL) 202 H (75-99) mg/dL Calcium (8.4-10.2) mg/dL Iron (50-170) ug/dL % Saturation (12.00-45.00) Troponin I (0.000-0.034) ng/mL Total Protein (6.3-8.2) g/dL Albumin (3.5-5.0) g/dL Vitamin B12 (200.0-944.0) pg/mL Microbiology - Last 24 Hours (Table) 06/17/21 10:53 Blood Culture - Preliminary Blood No Growth after 72 hours 06/17/21 10:53 Blood Culture - Preliminary Blood No Growth after 72 hours 06/17/21 16:37 Gram Stain - Final Leg - Left Wound Culture - Final Citrobacter amalonaticus Klebsiella pneumoniae Assessment and Plan Assessment: Assessment and plan: #Infected left leg ulcer with severe sepsis -Patient was found to be hypotensive in the emergency room hypotension improved with IV fluids -Lactic acid 6.1 -Patient being admitted to ICU -IV fluids resuscitation. -IV vancomycin and cefepime -Wound culture--pending -Blood cultures ordered 2 -Vascular surgery following -MRI of the left Leg ruled out osteomalacia and abscess showed evidence of cellulitis and myositis #Severe peripheral vascular disease -Vascular surgery consulted #Severe lactic acidosis -Improved IV fluids -Discontinue metformin #Hypotension -Secondary to sepsis -Improved with IV fluids #Coronary disease status post stent #NSTEMI -Possibly type II secondary to demand ischemia -Resume beta blockers -2-D echo -Cardiology consulted #Acute kidney injury -Consult nephrology -Most likely secondary to hypotension and prerenal azotemia possibly ATN -Hold diuretics and antihypertensive medications -Status post IV hydration -Renal ultrasound to rule ruled out obstruction -Avoid nephrotoxic agents #Acute CHF exacerbation -History of diastolic CHF -status post one-time dose of Lasix 40 mg IV push. 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 #Dyslipidemia -Resume all medications #Obesity BMI 34. #DVT prophylaxis subcutaneous heparin. #Full code
[2021-06-20 16:59] LABS: Glucose,Whole Blood 456 mg/dL (75-99)
[2021-06-20] MEDS: IPRATROPIUM-ALBUTEROL 3 ML NEB INHALATION PRN ×2 (17:09→20:09)
[2021-06-20] MEDS ORDERED: INSULIN ASPART (NovoLOG) 100 UNIT/ML VIAL SQ ONE (18:00)
[2021-06-20] MEDS: ACETAMINOPHEN TAB 500 MG TAB PO PRN (18:17)
[2021-06-20] MEDS: SODIUM HYPOCHLORITE 0.25% 480 ML BOT MISCELLANE SCH (18:28)
[2021-06-20] MEDS: LACTATED RINGERS 1,000 ML IV SCH (18:30)
[2021-06-20 19:59] LABS: Glucose,Whole Blood 441 mg/dL (75-99)
[2021-06-20] MEDS: FAMOTIDINE 20 MG TAB PO SCH (21:05)
[2021-06-20] MEDS: METOPROLOL TARTRATE 12.5 MG TAB PO SCH (21:05)
[2021-06-20] MEDS: INSULIN DETEMIR (LEVEMIR) 100 UNIT/ML SYR SQ SCH (21:06)
[2021-06-20] MEDS: HEPARIN SOD,PORK IN 0.45% NACL 25,000 UNIT in 0.45% NACL 1 250ML.BAG IV SCH (21:08)
--- NOTE | 2021-06-20 21:51 | P.PN ---
Subjective Progress Note Date: 06/20/21 Principal diagnosis: Left leg wound and cellulitis Patient is 80 year old female with a past medical history significant for chronic nonhealing wound, left lower extremity admitted to the hospital with worsening pain to the left leg wound concerning for cellulitis. On today's evaluation that is 06/20/2021 the patient continues to be afebrile, the patient left leg pain has slightly decreased in intensity, the patient denies chest pain however has been complaining of more shortness of breath and has been transferred to the telemetry floor surgery has been postponed because of cardiac event Objective - Vital Signs Vital signs: Vital Signs Temp 98.1 F 06/20/21 08:00 Pulse 85 06/20/21 12:00 Resp 18 06/20/21 12:00 BP 106/70 06/20/21 12:00 Pulse Ox 99 06/20/21 12:00 Intake & Output 06/19/21 06/20/21 06/20/21 18:59 06:59 18:59 Intake Total 65.079 317.81 Output Total 2400 1000 Balance -2400 -934.921 317.81 Weight 83.007 kg Intake: IV 100 Intake, IV Titration 65.079 97.81 Amount Heparin Sod,Pork in 0.45% 65.079 97.81 NaCl 25,000 unit In 0.45 % NaCl 1 250ml.bag @ 12 UNITS/KG/HR 9.961 mls/hr IV .Q24H [facility] Rx#: [id number] Oral 120 Output: Urine 2400 1000 Other: Voiding Method Indwelling Catheter Indwelling Catheter - Exam GENERAL DESCRIPTION: An elderly female lying in bed in no distress RESPIRATORY SYSTEM: Unlabored breathing , decreased breath sounds at bases HEART: S1 S2 regular rate and rhythm , ABDOMEN: Soft , no tenderness EXTREMITIES: Left leg wound is currently dressed no drainage on the dressing - Labs CBC & Chem 7: 06/20/21 07:43 06/20/21 07:43 Labs: Abnormal Lab Results - Last 24 Hours (Table) 06/19/21 06/19/21 06/19/21 Range/Units 06:02 15:09 16:37 WBC (3.8-10.6) k/uL RBC (3.80-5.40) m/uL Hgb (11.4-16.0) gm/dL Hct (34.0-46.0) % MCHC (31.0-37.0) g/dL Plt Count (150-450) k/uL Neutrophils # (1.3-7.7) k/uL APTT (22.0-30.0) sec D-Dimer (<0.60) mg/L FEU Sodium (137-145) mmol/L Carbon Dioxide (22-30) mmol/L BUN (7-17) mg/dL Creatinine (0.52-1.04) mg/dL Glucose (74-99) mg/dL POC Glucose (mg/dL) 386 H (75-99) mg/dL Calcium (8.4-10.2) mg/dL Iron 15 L (50-170) ug/dL % Saturation 4.80 L (12.00-45.00) Troponin I 0.065 H* (0.000-0.034) ng/mL Total Protein (6.3-8.2) g/dL Albumin (3.5-5.0) g/dL Vitamin B12 1305.0 H (200.0-944.0) pg/mL 06/19/21 06/19/21 06/19/21 Range/Units 17:06 17:06 21:03 WBC 13.5 H (3.8-10.6) k/uL RBC 2.72 L (3.80-5.40) m/uL Hgb 8.3 L (11.4-16.0) gm/dL Hct 26.9 L (34.0-46.0) % MCHC 30.9 L (31.0-37.0) g/dL Plt Count 463 H (150-450) k/uL Neutrophils # 11.4 H (1.3-7.7) k/uL APTT (22.0-30.0) sec D-Dimer 1.58 H (<0.60) mg/L FEU Sodium (137-145) mmol/L Carbon Dioxide (22-30) mmol/L BUN (7-17) mg/dL Creatinine (0.52-1.04) mg/dL Glucose (74-99) mg/dL POC Glucose (mg/dL) 461 H (75-99) mg/dL Calcium (8.4-10.2) mg/dL Iron (50-170) ug/dL % Saturation (12.00-45.00) Troponin I (0.000-0.034) ng/mL Total Protein (6.3-8.2) g/dL Albumin (3.5-5.0) g/dL Vitamin B12 (200.0-944.0) pg/mL 06/19/21 06/20/21 06/20/21 Range/Units 21:40 00:00 06:41 WBC (3.8-10.6) k/uL RBC (3.80-5.40) m/uL Hgb (11.4-16.0) gm/dL Hct (34.0-46.0) % MCHC (31.0-37.0) g/dL Plt Count (150-450) k/uL Neutrophils # (1.3-7.7) k/uL APTT 40.3 H (22.0-30.0) sec D-Dimer (<0.60) mg/L FEU Sodium (137-145) mmol/L Carbon Dioxide (22-30) mmol/L BUN (7-17) mg/dL Creatinine (0.52-1.04) mg/dL Glucose (74-99) mg/dL POC Glucose (mg/dL) 276 H (75-99) mg/dL Calcium (8.4-10.2) mg/dL Iron (50-170) ug/dL % Saturation (12.00-45.00) Troponin I 0.941 H* (0.000-0.034) ng/mL Total Protein (6.3-8.2) g/dL Albumin (3.5-5.0) g/dL Vitamin B12 (200.0-944.0) pg/mL 06/20/21 06/20/21 06/20/21 Range/Units 07:36 07:43 07:43 WBC 11.4 H (3.8-10.6) k/uL RBC 2.46 L (3.80-5.40) m/uL Hgb 7.5 L (11.4-16.0) gm/dL Hct 23.9 L (34.0-46.0) % MCHC (31.0-37.0) g/dL Plt Count 456 H (150-450) k/uL Neutrophils # 8.5 H (1.3-7.7) k/uL APTT 52.4 H (22.0-30.0) sec D-Dimer (<0.60) mg/L FEU Sodium 131 L (137-145) mmol/L Carbon Dioxide 18 L (22-30) mmol/L BUN 26 H (7-17) mg/dL Creatinine 1.22 H (0.52-1.04) mg/dL Glucose 240 H (74-99) mg/dL POC Glucose (mg/dL) (75-99) mg/dL Calcium 8.3 L (8.4-10.2) mg/dL Iron (50-170) ug/dL % Saturation (12.00-45.00) Troponin I (0.000-0.034) ng/mL Total Protein 5.9 L (6.3-8.2) g/dL Albumin 3.0 L (3.5-5.0) g/dL Vitamin B12 (200.0-944.0) pg/mL 06/20/21 Range/Units 11:14 WBC (3.8-10.6) k/uL RBC (3.80-5.40) m/uL Hgb (11.4-16.0) gm/dL Hct (34.0-46.0) % MCHC (31.0-37.0) g/dL Plt Count (150-450) k/uL Neutrophils # (1.3-7.7) k/uL APTT (22.0-30.0) sec D-Dimer (<0.60) mg/L FEU Sodium (137-145) mmol/L Carbon Dioxide (22-30) mmol/L BUN (7-17) mg/dL Creatinine (0.52-1.04) mg/dL Glucose (74-99) mg/dL POC Glucose (mg/dL) 202 H (75-99) mg/dL Calcium (8.4-10.2) mg/dL Iron (50-170) ug/dL % Saturation (12.00-45.00) Troponin I (0.000-0.034) ng/mL Total Protein (6.3-8.2) g/dL Albumin (3.5-5.0) g/dL Vitamin B12 (200.0-944.0) pg/mL Microbiology - Last 24 Hours (Table) 06/17/21 10:53 Blood Culture - Preliminary Blood No Growth after 72 hours 06/17/21 10:53 Blood Culture - Preliminary Blood No Growth after 72 hours 06/17/21 16:37 Gram Stain - Final Leg - Left Wound Culture - Final Citrobacter amalonaticus Klebsiella pneumoniae Assessment and Plan (1) Leg wound, left Current Visit: Yes Status: Acute Code(s): S81.802A - UNSPECIFIED OPEN WOUND, LEFT LOWER LEG, INITIAL ENCOUNTER SNOMED Code(s): 546081301 Plan: 1patient with chronic nonhealing wound to the left lower extremity in this patient presented to hospital with increasing pain swelling redness and concern for cellulitis apparently the patient did have a chronic wound and has been exposed to antibiotic will need to cover for both gram-positive as well as gram- negative pathogen. 2MRI did not show any evidence of Osteomyelitis, patient is scheduled for surgical debridement at which time deep culture should be obtained which has been ordered 3patient culture has been finalized with Citrobacter and Klebsiella to continue with cefepime and discontinue vancomycin, family the bedside questions answered Time with Patient: Less than 30
[2021-06-21] MEDS: IPRATROPIUM-ALBUTEROL 3 ML NEB INHALATION PRN ×4 (04:23→15:21)
[2021-06-21] MEDS: ALPRAZolam 0.25 MG TAB PO PRN ×2 (04:37→20:51)
[2021-06-21] MEDS: ACETAMINOPHEN TAB 500 MG TAB PO PRN (06:12)
[2021-06-21] MEDS: PANTOPRAZOLE 40 MG TABLET PO SCH (06:13)
[2021-06-21 07:11] LABS: Glucose,Whole Blood 207 mg/dL (75-99)
[2021-06-21] MEDS: INSULIN ASPART (NovoLOG) 100 UNIT/ML VIAL SQ SCH ×4 (07:12→20:52)
[2021-06-21] MEDS: INSULIN DETEMIR (LEVEMIR) 100 UNIT/ML SYR SQ SCH ×2 (07:12→21:00)
[2021-06-21] MEDS: CHOLECALCIFEROL 25 MCG (1000 IU) TABLET PO SCH (08:28)
[2021-06-21] MEDS: FERROUS SULFATE 325 MG TAB PO SCH (08:29)
[2021-06-21] MEDS: FENOFIBRATE 160 MG TAB PO SCH (08:29)
[2021-06-21] MEDS: CYANOCOBALAMIN 500 MCG TAB PO SCH (08:29)
[2021-06-21] MEDS: ASPIRIN 81 MG PO SCH (08:29)
[2021-06-21] MEDS: PREGABALIN 75 MG CAP PO SCH ×2 (08:29→20:52)
[2021-06-21] MEDS: CEFEPIME 2 GM in SODIUM CHLORIDE 0.9% 100 ML IVPB SCH ×2 (08:29→20:52)
[2021-06-21] MEDS: ASCORBIC ACID 500 MG TAB PO SCH (08:29)
[2021-06-21] MEDS: METOPROLOL TARTRATE 12.5 MG TAB PO SCH ×2 (08:29→20:52)
[2021-06-21] MEDS: LACTOBACILLUS ACIDOPH & BULGAR 1 EACH PACKET PO SCH (08:30)
[2021-06-21] MEDS ORDERED: VANCOMYCIN TROUGH DUE 1 EACH MISC MISCELLANE ONE (11:00)
[2021-06-21 11:45] LABS: Basophils # (A) 0.1 k/uL (0-0.2); Basophils % (A) 0 %; Eosinophils # (A) 0.5 k/uL (0-0.7); Eosinophils % (A) 4 %; HCT 24.2 % (34.0-46.0); HGB 7.4 gm/dL (11.4-16.0); Hypochromasia Moderate; Lymphocytes # (A) 1.6 k/uL (1.0-4.8); Lymphocytes % (A) 12 %; MCHC 30.7 g/dL (31.0-37.0); MCV 97.7 fL (80.0-100.0); Mean Platelet Volume 8.2; Monocytes # (A) 0.8 k/uL (0-1.0); Monocytes % (A) 6 %; Neutrophils # (A) 10.1 k/uL (1.3-7.7); Neutrophils % (A) 75 %; Platelet Count 448 k/uL (150-450); RBC 2.48 m/uL (3.80-5.40); WBC 13.4 k/uL (3.8-10.6)
[2021-06-21 11:52] LABS: Calcium 8.6 mg/dL (8.4-10.2); Potassium 5.1 mmol/L (3.5-5.1)
[2021-06-21 11:57] LABS: Glucose,Whole Blood 191 mg/dL (75-99)
--- NOTE | 2021-06-21 13:15 | P.PN ---
Subjective Progress Note Date: 06/21/21 Patient is seen today sitting in the chair and reports she is feeling much better than yesterday. Patient continues on heparin drip. Hemoglobin is 7.5. Patient's echocardiogram shows mild to moderate LV dysfunction with an ejection fraction of 40-45%. Left leg is wrapped. Patient's breathing is still mildly labored with exertion. Due to elevated troponins. Will discuss with Dr. Hsu on about possible heart catheterization. Wound debridement remains on hold until breathing has improved. Hemoglobin today 7.5 Objective - Vital Signs Vital signs: Vital Signs Temp 97.6 F 06/21/21 08:00 Pulse 90 06/21/21 12:09 Resp 18 06/21/21 12:09 BP 87/55 06/21/21 08:00 Pulse Ox 96 06/21/21 08:00 Intake & Output 06/20/21 06/21/21 06/21/21 17:59 06:59 18:59 Intake Total 285.793 Output Total Balance 285.793 Weight Intake: IV Intake, IV Titration 165.793 Amount Heparin Sod,Pork in 0.45% 165.793 NaCl 25,000 unit In 0.45 % NaCl 1 250ml.bag @ 12 UNITS/KG/HR 9.961 mls/hr IV .Q24H [facility] Rx#: [id number] Oral 120 Output: Urine Other: Voiding Method Indwelling Catheter # Voids - Exam PHYSICAL EXAM: VITAL SIGNS: Reviewed. GENERAL: Well-developed in no acute distress. HEENT: Head is normocephalic. Pupils are equal, round. Sclerae anicteric. Mucous membranes of the mouth are moist. NECK: Supple. No JVD or thyromegaly RESPIRATORY: Respirations even and unlabored. Lungs wheezy and diminished to auscultation bilaterally. CARDIO: Regular rate and rhythm. S1 and S2 heard. No or gallops. Systolic murmur at the apex EXTREMITIES: Normal range of motion. No clubbing or cyanosis. Peripheral pulses intact. bilateral lower extremity edema left lower extremity nonhealing wound, cellulitis NEURO: Orientated to person, time, mood is appropriate - Labs CBC & Chem 7: 06/21/21 11:19 06/21/21 11:19 Labs: Abnormal Lab Results - Last 24 Hours (Table) 06/20/21 06/20/21 06/21/21 Range/Units 16:57 19:58 07:10 WBC (3.8-10.6) k/uL RBC (3.80-5.40) m/uL Hgb (11.4-16.0) gm/dL Hct (34.0-46.0) % MCHC (31.0-37.0) g/dL Neutrophils # (1.3-7.7) k/uL APTT (22.0-30.0) sec Sodium (137-145) mmol/L Carbon Dioxide (22-30) mmol/L BUN (7-17) mg/dL Creatinine (0.52-1.04) mg/dL Glucose (74-99) mg/dL POC Glucose (mg/dL) 456 H 441 H 207 H (75-99) mg/dL 06/21/21 06/21/21 06/21/21 Range/Units 11:19 11:19 11:19 WBC 13.4 H (3.8-10.6) k/uL RBC 2.48 L (3.80-5.40) m/uL Hgb 7.4 L (11.4-16.0) gm/dL Hct 24.2 L (34.0-46.0) % MCHC 30.7 L (31.0-37.0) g/dL Neutrophils # 10.1 H (1.3-7.7) k/uL APTT 41.7 H (22.0-30.0) sec Sodium 133 L (137-145) mmol/L Carbon Dioxide 18 L (22-30) mmol/L BUN 25 H (7-17) mg/dL Creatinine 1.18 H (0.52-1.04) mg/dL Glucose 180 H (74-99) mg/dL POC Glucose (mg/dL) (75-99) mg/dL 06/21/21 Range/Units 11:49 WBC (3.8-10.6) k/uL RBC (3.80-5.40) m/uL Hgb (11.4-16.0) gm/dL Hct (34.0-46.0) % MCHC (31.0-37.0) g/dL Neutrophils # (1.3-7.7) k/uL APTT (22.0-30.0) sec Sodium (137-145) mmol/L Carbon Dioxide (22-30) mmol/L BUN (7-17) mg/dL Creatinine (0.52-1.04) mg/dL Glucose (74-99) mg/dL POC Glucose (mg/dL) 191 H (75-99) mg/dL Microbiology - Last 24 Hours (Table) 06/17/21 16:37 Anaerobic Culture - Final Leg - Left Anaerobic Gm Negative Bacilli 06/17/21 10:53 Blood Culture - Preliminary Blood No Growth after 72 hours 06/17/21 10:53 Blood Culture - Preliminary Blood No Growth after 72 hours Assessment and Plan Assessment: Shortness of breath, rule out cardiac cause Elevated troponin Left leg Cellulitis Plan: Continue with IV heparin Echocardiogram reviewed Possible heart catheterization Further recommendations based on clinical course The above impression and plan of care have been discussed and directed by the signing physician. Leatha Draper, nurse practitioner, acting as scribe for signing physician.
[2021-06-21] MEDS ORDERED: MORPHINE SULFATE 2 MG/ML SYRINGE IVP PRN (13:22)
[2021-06-21] MEDS: HYDROcodone/APAP 5-325MG 1 EACH TAB PO PRN ×2 (14:14→23:32)
[2021-06-21] MEDS: bisacodyL 5 MG TABLET.DR PO PRN (14:15)
--- NOTE | 2021-06-21 14:20 | P.NPCON ---
History of Present Illness - Reason for Consult acute renal failure - History of Present Illness Patient is a 80-year-old female who was admitted to the hospital with left leg ulcer and severe pain she is currently being treated for cellulitis Serum creatinine was 1.6 on initial admission and improved to 1.0 on 06/18/2021. Subsequently it worsen again to 1.2 mg/dL. Today he does at 1.1. Patient had developed CHF exacerbation and volume overload for which she was diuresed. Blood pressure is noted to be significantly low with low systolic at 82 mmHg Patient has an indwelling Triana catheter with 24 hour urine output at 2.8 L. No IV contrast administration this hospitalization. Echocardiogram shows ejection fraction 40-45%. Review of Systems No obvious bleeding noted. No significant shortness of breath or chest pains. No diarrhea nausea or vomiting noted. Past Medical History Past Medical History: Diabetes Mellitus, GERD/Reflux, Hypertension, Osteoarthritis (OA), Skin Disorder, Syncope, Vascular Disorder Additional Past Medical History / Comment(s): Arthritis in lower back. Poor circulation in legs, wound left lower leg calf area w/ pain, neuropathy in feet, [facility] to [facility]. Edema bilateral lower extremities, wears TEDS on right leg. Shortness of breath.shortness of breath History of Any Multi-Drug Resistant Organisms: None Reported Past Surgical History: Appendectomy, Breast Surgery, Ear Surgery, Heart Catheterization, Heart Catheterization With Stent, Hysterectomy Additional Past Surgical History / Comment(s): Varicose vein stripping left leg, left ear myringotomy/tubes, colonoscopy, left breast biopsy, bilateral cataracts, left leg wound debridement. Past Anesthesia/Blood Transfusion Reactions: No Reported Reaction Date of Last Stent Placement:: 11/26 Past Psychological History: No Psychological Hx Reported Smoking Status: Former smoker Past Alcohol Use History: Rare Past Drug Use History: None Reported - Past Family History Father Family Medical History: Cancer Additional Family Medical History / Comment(s): COLON CANCER. Mother Family Medical History: Diabetes Mellitus, Renal Disease Additional Family Medical History / Comment(s): RENAL FAILURE. Brother(s) Family Medical History: Cancer Additional Family Medical History / Comment(s): 3 brothers - 2 had stomach cancer, 1 had esophagueal cancer. Medications and Allergies Home Medications Medication Instructions Recorded Confirmed Type Insulin Glargine [Lantus] 8 unit SQ HS 04/26/14 06/17/21 History metFORMIN HCL [Glucophage] 500 mg PO AC-BRKFST 04/26/14 06/17/21 History Aspirin EC [Ecotrin Low Dose] 81 mg PO DAILY 05/08/18 06/17/21 History INSULIN ASPART (NovoLOG) [NovoLOG 5 - 12 unit SQ AC-TID 05/08/18 06/17/21 History (formulary)] Pantoprazole Sodium 40 mg PO DAILY 05/08/18 06/17/21 History gemfibroziL [Lopid] 600 mg PO AC-BID 05/08/18 06/17/21 History Cholecalciferol [Vitamin D3 (25 2,000 unit PO DAILY 06/08/19 06/17/21 History Mcg = 1000 Iu)] Cyanocobalamin (Vitamin B-12) 2,000 mcg PO DAILY 06/08/19 06/17/21 History [Vitamin B-12] Famotidine [Pepcid] 20 mg PO HS 06/08/19 06/17/21 History Ferrous Sulfate [Feosol] 325 mg PO DAILY 06/08/19 06/17/21 History Flaxseed Oil 1,000 mg PO BID 06/08/19 06/17/21 History L.acidoph,Paracasei, B.lactis 1 cap PO DAILY 06/08/19 06/17/21 History [Probiotic] Acetaminophen [Tylenol Extra 1,500 mg PO Q6H PRN 03/30/21 06/17/21 History Strength] Ascorbic Acid [Vitamin C] 1,000 mg PO DAILY 03/30/21 06/17/21 History Furosemide [Lasix] 40 mg PO DAILY 03/30/21 06/17/21 History hydroCHLOROthiazide [Hydrodiuril] 25 mg PO DAILY 03/30/21 06/17/21 History ALPRAZolam [Xanax] 0.25 mg PO DAILY PRN 06/17/21 06/17/21 History Canagliflozin [Invokana] 100 mg PO DAILY 06/17/21 06/17/21 History Carvedilol [Coreg] 6.25 mg PO BID 06/17/21 06/17/21 History Fluticasone Nasal [place] [Flonase 1 spray EA NOSTRIL DAILY PRN 06/17/21 06/17/21 History Nasal [place]] Losartan Potassium [Cozaar] 25 mg PO DAILY 06/17/21 06/17/21 History Pregabalin [Lyrica] 75 mg PO BID 06/17/21 06/17/21 History Allergies Allergy/AdvReac Type Severity Reaction Status Date / Time bacitracin Allergy Unknown Verified 06/17/21 10:08 [From Neosporin ([id number])] bacitracin zinc Allergy Unknown Verified 06/17/21 10:08 [From Neosporin ([id number])] latex Allergy Rash/Hives Verified 06/17/21 10:08 neomycin sulfate Allergy Unknown Verified 06/17/21 10:08 [From Neosporin ([id number])] polymyxin B Allergy Unknown Verified 06/17/21 10:08 [From Neosporin ([id number])] Penicillins AdvReac Rash & Verified 06/17/21 10:08 Fatigue Sulfa (Sulfonamide AdvReac Rash & Verified 06/17/21 10:08 Antibiotics) Fatigue Physical Exam Vitals: Vital Signs Temp Pulse Pulse Resp BP Pulse Ox 06/21/21 13:50 92 06/21/21 12:09 90 18 06/21/21 12:00 92 20 82/51 98 06/21/21 11:57 92 18 06/21/21 08:56 90 18 06/21/21 08:46 92 18 06/21/21 08:00 97.6 F 94 20 87/55 96 06/21/21 04:32 92 06/21/21 04:28 97 06/21/21 04:23 90 06/21/21 04:00 97.5 F L 78 20 106/53 98 06/21/21 00:00 98.1 F 92 22 104/69 96 06/20/21 20:17 92 06/20/21 20:09 95 06/20/21 20:00 97.6 F 74 18 121/76 97 06/20/21 17:17 106 H 06/20/21 17:09 103 H 06/20/21 16:00 99 20 96/62 98 06/20/21 14:00 85 Intake and Output 06/20/21 06/21/21 06/21/21 21:59 06:59 14:59 Intake Total 403.793 Output Total 700 Balance -296.207 Intake: Intake, IV Titration 165.793 Amount Heparin Sod,Pork in 0.45% 165.793 NaCl 25,000 unit In 0.45 % NaCl 1 250ml.bag @ 12 UNITS/KG/HR 9.961 mls/hr IV .Q24H [facility] Rx#: [id number] Oral 238 Output: Urine 700 Other: Voiding Method Indwelling Catheter Patient is awake comfortable. Not in any acute distress. Examination of the heart S1 and S2 Examination lungs bilateral breath sounds are heard Abdomen is soft nontender Examination of lower extremities shows 1+ edema right lower extremity left leg is currently dressed at the site of the wound. 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 Acute kidney injury secondary to hypotension, cardiorenal. Nonoliguric. Vancomycin level was 16.3 today. UA quite benign on 06/17/2021 2. Acute CHF and top of chronic mostly systolic 3. Cardiomyopathy with EF 40-45% 4. Left lower extremity chronic nonhealing wound/ulcer with cellulitis. Wound cultures growing Citrobacter and Klebsiella. Patient is being followed by ID 5. Anemia, no active bleeding noted, severe iron deficiency noted with iron saturation at 4% Plan: Check random cortisol level Continue to avoid nephrotoxic medications Continue off of IV fluids Consider decreasing Lyrica as it can cause significant lower extremity edema. Consider switching to Neurontin Try to diurese patient Check ultrasound of the kidneys Agree with discontinuation of vancomycin although level was not significantly elevated Thank you for the consultation. Will continue to follow the patient with you during her hospitalization
[2021-06-21] MEDS ORDERED: FUROSEMIDE 10 MG/ML 4 ML VIAL IV STA (14:21)
--- NOTE | 2021-06-21 15:14 | P.PN ---
Subjective Progress Note Date: 06/21/21 History of Present Illness H&P Date: 06/17/21 Chief Complaint: Infected left leg ulcer for severe pain and tenderness 80-year-old female, seen in the emergency department. She presented to the emergency room with a chief complaint of severe left leg pain with infected ulcer. She developed this ulcer and lost January 2021. The patient has had debridement, by Dr. Triana and Dr. Herrera first one on April 2 one on May. The patient comes into the emergency room, because of weakness. She has a low blood pressure. She is a lactic acid is 6. The primary service was concerned about sepsis. The patient is also complaining about left foot pain, numbness in her left foot, and elevated blood sugar. The ulcer on the medial left leg, has been present for many months, and has gotten worse. There is no fever or chills. The patient has a history of diabetes, hyperlipidemia, hypertension, GERD, osteoarthritis, peripheral vascular occlusive disease, diabetic neuropathy, CAD, with previous heart catheterization and stent placemen t. White count 10.3, hemoglobin 8.7, hematocrit 27.4, and platelet count 520,000. Sodium 135, potassium 4.9, chlorides 98, CO2 22, anion gap 15, BUN 69, and creatinine 1.66. Lactic acid is 6.1. Urine is light yellow and cloudy. There is moderate blood. There is 4+ glucose. There is many bacteria. The patient is not having any urinary tract symptoms. X-rays of the leg and foot, showed only soft tissue changes. The patient is received Rocephin and vancomycin in the ER. Blood pressure has been only in the mid 70s, systolic. She is being transferred to ICU.discussed with the buyer liaison Dr. Comer Interval history: 06/19 Patient was examined at the bedside. Patient was transferred out of the ICU overnight Patient is complaining of shortness of breath and a chest x-ray showed interstitial edema. Patient was given a one-time dose of Lasix 40 mg IV push by pulmonary service. Patient denies any chest pain. Pending cardiology consultation 06/20 patient surgery was canceled today due to worsening shortness of breath and elevated troponin. VQ scan was low probability for PE. Cardiology was notified about positive troponin. 06/21 patient seen and examined at the bedside. She still complaining of shortness of breath but she denies any chest pain. Chest x-ray showed congest yuni heart failure patient's been getting Lasix. She is complaining of constipation. Otherwise no acute changes overnight Objective - Vital Signs Vital signs: Vital Signs Temp 97.6 F 06/21/21 08:00 Pulse 92 06/21/21 13:50 Resp 18 06/21/21 12:09 BP 82/51 06/21/21 12:00 Pulse Ox 98 06/21/21 12:00 Intake & Output 06/20/21 06/21/21 06/21/21 17:59 06:59 18:59 Intake Total 403.793 Output Total 700 Balance -296.207 Weight Intake: IV Intake, IV Titration 165.793 Amount Heparin Sod,Pork in 0.45% 165.793 NaCl 25,000 unit In 0.45 % NaCl 1 250ml.bag @ 12 UNITS/KG/HR 9.961 mls/hr IV .Q24H [facility] Rx#: [id number] Oral 238 Output: Urine 700 Other: Voiding Method Indwelling Catheter # Voids - Exam General: non toxic, no distress, appears at stated age Derm: warm, dry Head: atraumatic, normocephalic, symmetric Eyes: EOMI, no lid lag, anicteric sclera Mouth: no lip lesion, mucus membranes moist Cardiovascular: S1S2 reg, no murmur, positive posterior tibial pulse bilateral, Lungs: CTA bilateral, no rhonchi, no rales , no accessory muscle use Abdominal: soft, nontender to palpation, no guarding, no appreciable organomegaly Ext: Left leg ulcer 7 x 6 cm deep with necrotic tissue and pus surrounding cellulitis and edema. Tender to palpation Neuro: CN II-XI grossly intact, no focal neuro deficits Psych: Alert, oriented, appropriate affect - Labs CBC & Chem 7: 06/21/21 11:19 06/21/21 11:19 Labs: Abnormal Lab Results - Last 24 Hours (Table) 06/20/21 06/20/21 06/21/21 Range/Units 16:57 19:58 07:10 WBC (3.8-10.6) k/uL RBC (3.80-5.40) m/uL Hgb (11.4-16.0) gm/dL Hct (34.0-46.0) % MCHC (31.0-37.0) g/dL Neutrophils # (1.3-7.7) k/uL APTT (22.0-30.0) sec Sodium (137-145) mmol/L Carbon Dioxide (22-30) mmol/L BUN (7-17) mg/dL Creatinine (0.52-1.04) mg/dL Glucose (74-99) mg/dL POC Glucose (mg/dL) 456 H 441 H 207 H (75-99) mg/dL 06/21/21 06/21/21 06/21/21 Range/Units 11:19 11:19 11:19 WBC 13.4 H (3.8-10.6) k/uL RBC 2.48 L (3.80-5.40) m/uL Hgb 7.4 L (11.4-16.0) gm/dL Hct 24.2 L (34.0-46.0) % MCHC 30.7 L (31.0-37.0) g/dL Neutrophils # 10.1 H (1.3-7.7) k/uL APTT 41.7 H (22.0-30.0) sec Sodium 133 L (137-145) mmol/L Carbon Dioxide 18 L (22-30) mmol/L BUN 25 H (7-17) mg/dL Creatinine 1.18 H (0.52-1.04) mg/dL Glucose 180 H (74-99) mg/dL POC Glucose (mg/dL) (75-99) mg/dL 06/21/21 Range/Units 11:49 WBC (3.8-10.6) k/uL RBC (3.80-5.40) m/uL Hgb (11.4-16.0) gm/dL Hct (34.0-46.0) % MCHC (31.0-37.0) g/dL Neutrophils # (1.3-7.7) k/uL APTT (22.0-30.0) sec Sodium (137-145) mmol/L Carbon Dioxide (22-30) mmol/L BUN (7-17) mg/dL Creatinine (0.52-1.04) mg/dL Glucose (74-99) mg/dL POC Glucose (mg/dL) 191 H (75-99) mg/dL Microbiology - Last 24 Hours (Table) 06/17/21 10:53 Blood Culture - Preliminary Blood No Growth after 96 hours 06/17/21 10:53 Blood Culture - Preliminary Blood No Growth after 96 hours 06/17/21 16:37 Anaerobic Culture - Final Leg - Left Anaerobic Gm Negative Bacilli Assessment and Plan Assessment: Assessment and plan: #Infected left leg ulcer with severe sepsis -Patient was found to be hypotensive in the emergency room hypotension improved with IV fluids -Lactic acid 6.1 -Patient being admitted to ICU -IV fluids resuscitation. -IV vancomycin and cefepime -Wound culture--growing Citrobacter and capsula pneumoniae -Blood cultures ordered 2 -Vascular surgery cancer surgery on June 20 due to elevated troponin and CHF exacerbation -MRI of the left Leg ruled out osteomalacia and abscess showed evidence of cellulitis and myositis #Acute systolic CHF exacerbation -History of diastolic CHF. EF dropped to 402 45% -Resume diuresis per cardiology and nephrology. -Cardiology consulted #NSTEMI -History coronary disease status post stent -Possibly type II secondary to demand ischemia -Resume beta blockers -2-D echo showed drop in EF 40-45% with apical anterior, lateral and inferior septal hypokinesis -Awaiting cardiology input regarding possible left heart cath -Cardiology input appreciated #Severe peripheral vascular disease -Vascular surgery consulted #Severe lactic acidosis -Improved IV fluids -Discontinue metformin #Hypotension -Secondary to sepsis -Improved with IV fluids #Acute kidney injury -Consult nephrology -Most likely secondary to hypotension and prerenal azotemia possibly ATN -Hold diuretics and antihypertensive medications -Status post IV hydration she is currently on diuretics . 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 #Dyslipidemia -Resume all medications #Obesity BMI 34. #DVT prophylaxis subcutaneous heparin. #Full code
[2021-06-21 16:49] LABS: Glucose,Whole Blood 244 mg/dL (75-99)
[2021-06-21] MEDS: SODIUM FERRIC GLUCONAT-SUCROSE 125 MG in SODIUM CHLORIDE 0.9% 100 ML IVPB SCH (17:17)
[2021-06-21] MEDS: SODIUM HYPOCHLORITE 0.25% 480 ML BOT MISCELLANE SCH (19:30)
[2021-06-21] MEDS: LACTATED RINGERS 1,000 ML IV SCH (19:31)
[2021-06-21] MEDS: HEPARIN SOD,PORK IN 0.45% NACL 25,000 UNIT in 0.45% NACL 1 250ML.BAG IV SCH (20:25)
[2021-06-21 20:36] LABS: Glucose,Whole Blood 267 mg/dL (75-99)
[2021-06-21] MEDS: DOCUSATE 100 MG CAP PO SCH (20:52)
[2021-06-21] MEDS: FAMOTIDINE 20 MG TAB PO SCH (20:52)
[2021-06-22 02:30] LABS: HCT 22.1 % (34.0-46.0); Hypochromasia Slight; MCH 30.3 pg (25.0-35.0); MCHC 31.5 g/dL (31.0-37.0); MCV 96.1 fL (80.0-100.0); Platelet Count 405 k/uL (150-450); RDW 13.8 % (11.5-15.5); WBC 11.7 k/uL (3.8-10.6)
[2021-06-22 02:41] LABS: Albumin 2.8 g/dL (3.5-5.0); Calcium 8.3 mg/dL (8.4-10.2); Magnesium 2.2 mg/dL (1.6-2.3); Potassium 4.9 mmol/L (3.5-5.1); Total Bilirubin 0.5 mg/dL (0.2-1.3); Total Protein 5.6 g/dL (6.3-8.2)
[2021-06-22] MEDS: ACETAMINOPHEN TAB 500 MG TAB PO PRN ×3 (03:35→17:31)
[2021-06-22] MEDS: IPRATROPIUM-ALBUTEROL 3 ML NEB INHALATION PRN (03:39)
[2021-06-22] MEDS: PANTOPRAZOLE 40 MG TABLET PO SCH (06:39)
[2021-06-22 06:52] LABS: Glucose,Whole Blood 79 mg/dL (75-99)
[2021-06-22] MEDS: INSULIN ASPART (NovoLOG) 100 UNIT/ML VIAL SQ SCH ×4 (06:58→21:08)
--- NOTE | 2021-06-22 07:43 | CT ---
EXAMINATION TYPE: CT brain wo con for TPA DATE OF EXAM: 06/22/2021 COMPARISON: 05/11/2012 HISTORY: Neuro deficit, acute, stroke suspected CT DLP: 1099.[address] of the brain was performed. The ventricles, basal cisterns and sulci overlying the cerebral convexities demonstrate mild enlargem ent. There is no evidence for intracranial hemorrhage or sulcal effacement. There is decreased attenuation about the periventricular white matter and deep white matter of both c erebral hemispheres, compatible with chronic small vessel ischemia. Differential diagnosis does inclu de demyelination. No mass effects are seen.No midline shift. Osseous calvarium is intact. If symptoms persist consider MRI. IMPRESSION: 1. Age related atrophic and chronic small vessel ischemic change without acute intracranial process s een at this time.
[2021-06-22 08:17] LABS: Basophils % (A) 0 %; Eosinophils # (A) 0.7 k/uL (0-0.7); Eosinophils % (A) 7 %; HCT 22.4 % (34.0-46.0); Hypochromasia Slight; Lymphocytes # (A) 1.8 k/uL (1.0-4.8); Lymphocytes % (A) 19 %; MCHC 31.3 g/dL (31.0-37.0); MCV 95.9 fL (80.0-100.0); Mean Platelet Volume 8.5; Monocytes # (A) 0.7 k/uL (0-1.0); Monocytes % (A) 7 %; Neutrophils # (A) 6.4 k/uL (1.3-7.7); Neutrophils % (A) 65 %; Platelet Count 407 k/uL (150-450); RBC 2.33 m/uL (3.80-5.40); WBC 9.8 k/uL (3.8-10.6)
[2021-06-22] MEDS: INSULIN DETEMIR (LEVEMIR) 100 UNIT/ML SYR SQ SCH ×2 (08:25→21:08)
[2021-06-22] MEDS: METOPROLOL TARTRATE 12.5 MG TAB PO SCH ×2 (08:28→21:07)
[2021-06-22] MEDS: ASPIRIN 81 MG PO SCH (08:28)
[2021-06-22] MEDS: FENOFIBRATE 160 MG TAB PO SCH (08:28)
[2021-06-22] MEDS: PREGABALIN 75 MG CAP PO SCH ×2 (08:28→21:08)
[2021-06-22] MEDS: CEFEPIME 2 GM in SODIUM CHLORIDE 0.9% 100 ML IVPB SCH ×2 (08:29→21:07)
[2021-06-22] MEDS: CYANOCOBALAMIN 500 MCG TAB PO SCH (08:30)
[2021-06-22] MEDS: SODIUM HYPOCHLORITE 0.25% 480 ML BOT MISCELLANE SCH (08:30)
[2021-06-22] MEDS: ASCORBIC ACID 500 MG TAB PO SCH (08:30)
[2021-06-22] MEDS: CHOLECALCIFEROL 25 MCG (1000 IU) TABLET PO SCH (08:30)
[2021-06-22] MEDS: polyethylene glycoL 3350 17 GM POWD.PACK PO SCH (08:30)
[2021-06-22] MEDS: DOCUSATE 100 MG CAP PO SCH ×2 (08:30→21:07)
[2021-06-22] MEDS: FERROUS SULFATE 325 MG TAB PO SCH (08:30)
[2021-06-22 08:48] LABS: Albumin 2.6 g/dL (3.5-5.0); Calcium 8.2 mg/dL (8.4-10.2); Potassium 4.3 mmol/L (3.5-5.1); Total Bilirubin 0.4 mg/dL (0.2-1.3); Total Protein 5.5 g/dL (6.3-8.2)
--- NOTE | 2021-06-22 08:58 | CT ---
EXAMINATION TYPE: CODE STROKE: CTA head neck DATE OF EXAM: 06/22/2021 COMPARISON: CT brain 06/22/2021 HISTORY: 80-year-old female neurologic deficit, acute, stroke suspected, word salad. TECHNIQUE: Contiguous axial scanning of the head and neck performed with IV Contrast, patient injecte d with 65 mL of Isovue 370. Coronal/sagittal MIP reconstructions performed. 3-D reconstructions gener ated on a dedicated independent workstation. CT DLP: 465.4 mGycm Automated exposure control for dose reduction was used. FINDINGS: NECK: Partially visualized [id number] bilateral pleural effusions. Diffuse septal lines in the visua lized lungs. Conventional arterial vessel branching anatomy. The bilateral vertebral arteries are patent throughout the course low takeoff of the PICA on the righ t from the V3 segment. Retropharyngeal course of the bilateral common carotid arteries which remain patent. Right common carotid artery shows moderate eccentric atherosclerotic calcification along the proximal ICA with mild, approximately 25% proximal ICA narrowing just above the level of the carotid bulb by NASCET criteria. Mild atherosclerotic calcification within the left carotid bulb without significant narrowing. Additi onal eccentric discogenic calcification proximal left ICA above the carotid bulb could be related to focal moderate, 50% ICA stenosis by NASCET criteria. HEAD: The vertebral and basilar arteries patent with a moderate focal stenosis mid basilar segment. Moderate focal stenosis P1 segment right posterior cerebral artery, axial image 141. Markedly diminutive, probably severely stenotic P1 segment left posterior cerebral artery. There is l imited visualization of more distal left posterior cerebral artery. Possible 2 mm saccular aneurysm p rojecting anteriorly from the expected takeoff of the posterior communicating artery. Reference axial image 144. Moderate irregular atherosclerotic narrowing throughout the right carotid siphon. More moderate to severe irregular atherosclerotic narrowing throughout the left carotid siphon includ ing the cavernous and supraclinoid portions. Moderate focal stenosis A3 segment anterior cerebral artery, axial image 219. IMPRESSION: Neck: 1. Moderate proximal left ICA stenosis (50%) and mild on the right. 2. Mild to moderate bilateral pleural effusions. A few septal lines suggest pulmonary vascular conges tion. Clinically correlate. Head: 3. Markedly diminutive, probably severely stenotic P1 segment left VOLUNTEER MANAGER. Limited visualization to nonv isualization of P2 segment and more distal left VOLUNTEER MANAGER could reflect sequela of severe stenosis or occlu orion. 4. Possible tiny 2 mm saccular aneurysm projecting anteriorly from the left VOLUNTEER MANAGER at the expected takeo ff of the posterior communicating artery. 5. Moderate to severe irregular atherosclerotic stenoses throughout the left carotid siphon including the cavernous and supraclinoid portions. Moderate irregular atherosclerotic stenoses throughout the right carotid siphon. 6. Moderate focal stenosis mid segment of the basilar artery. Additional moderate focal stenosis A3 s egment left IAIN.
--- NOTE | 2021-06-22 09:44 | P.PN ---
Subjective Progress Note Date: 06/22/21 Principal diagnosis: Acute coronary event The patient is an 80-year-old female patient with CAD and prior angioplasty as well as diabetes and hypertension and dyslipidemia who was admitted to the hospital with lower extremities cellulitis and we consulted to see the patient for shortness of breath patient she was ruled in for acute coronary event. The initial plan is to pursue with a heart catheterization later on today but unfortunately the patient developed an episode of TIA/stroke. She underwent a computed tomography scan of the brain and that event continues to be in vestigated by the neurology service. The heart catheterization would be canceled. When she was seen this morning she was asymptomatic in time of chest pain or chest discomfort and she was alert and oriented 3. Currently she is on heparin IV. She did have an episode of irregular rhythm seems to be in atrial fibrillation which is known to her. The echo revealed impaired LV function was EF around 40% with evidence of wall motion abnormality is concerning for severe underlying coronary artery disease. Objective - Vital Signs Vital signs: Vital Signs Temp 97.1 F L 06/22/21 08:08 Pulse 133 H 06/22/21 08:08 Resp 20 06/22/21 08:10 BP 125/62 06/22/21 08:08 Pulse Ox 96 06/22/21 08:08 Intake & Output 06/21/21 06/22/21 06/22/21 18:59 06:59 18:59 Intake Total 608.000 100.105 10 Output Total 1800 1950 Balance -1192.000 -1849.895 10 Intake: IV 10 Invasive Line 6 10 Intake, IV Titration 250.000 100.105 Amount Heparin Sod,Pork in 0.45% 250.000 100.105 NaCl 25,000 unit In 0.45 % NaCl 1 250ml.bag @ 12 UNITS/KG/HR 9.961 mls/hr IV .Q24H [facility] Rx#: [id number] Oral 358 Output: Urine 1800 1950 Other: Voiding Method Indwelling Catheter Indwelling Catheter Indwelling Catheter - Constitutional General appearance: Present: no acute distress - Respiratory Respiratory: bilateral: diminished - Cardiovascular Rhythm: regular Heart sounds: normal: S1, S2 - Labs CBC & Chem 7: 06/22/21 07:58 06/22/21 07:58 Labs: Abnormal Lab Results - Last 24 Hours (Table) 06/21/21 06/21/2122 Range/Units 11:19 11:19 11:19 WBC 13.4 H (3.8-10.6) k/uL RBC 2.48 L (3.80-5.40) m/uL Hgb 7.4 L (11.4-16.0) gm/dL Hct 24.2 L (34.0-46.0) % MCHC 30.7 L (31.0-37.0) g/dL Neutrophils # 10.1 H (1.3-7.7) k/uL APTT 41.7 H (22.0-30.0) sec Sodium 133 L (137-145) mmol/L Carbon Dioxide 18 L (22-30) mmol/L BUN 25 H (7-17) mg/dL Creatinine 1.18 H (0.52-1.04) mg/dL Glucose 180 H (74-99) mg/dL POC Glucose (mg/dL) (75-99) mg/dL Calcium (8.4-10.2) mg/dL AST (14-36) U/L Troponin I (0.000-0.034) ng/mL Total Protein (6.3-8.2) g/dL Albumin (3.5-5.0) g/dL 06/21/21 06/21/21 06/21/21 Range/Units 11:49 16:46 17:31 WBC (3.8-10.6) k/uL RBC (3.80-5.40) m/uL Hgb (11.4-16.0) gm/dL Hct (34.0-46.0) % MCHC (31.0-37.0) g/dL Neutrophils # (1.3-7.7) k/uL APTT 36.6 H (22.0-30.0) sec Sodium (137-145) mmol/L Carbon Dioxide (22-30) mmol/L BUN (7-17) mg/dL Creatinine (0.52-1.04) mg/dL Glucose (74-99) mg/dL POC Glucose (mg/dL) 191 H 244 H (75-99) mg/dL Calcium (8.4-10.2) mg/dL AST (14-36) U/L Troponin I (0.000-0.034) ng/mL Total Protein (6.3-8.2) g/dL Albumin (3.5-5.0) g/dL 06/21/21 06/22/21 06/22/21 Range/Units 20:20 01:58 01:58 WBC 11.7 H (3.8-10.6) k/uL RBC 2.30 L (3.80-5.40) m/uL Hgb 7.0 L (11.4-16.0) gm/dL Hct 22.1 L (34.0-46.0) % MCHC (31.0-37.0) g/dL Neutrophils # (1.3-7.7) k/uL APTT (22.0-30.0) sec Sodium 133 L (137-145) mmol/L Carbon Dioxide 20 L (22-30) mmol/L BUN 24 H (7-17) mg/dL Creatinine 1.26 H (0.52-1.04) mg/dL Glucose 104 H (74-99) mg/dL POC Glucose (mg/dL) 267 H (75-99) mg/dL Calcium 8.3 L (8.4-10.2) mg/dL AST 38 H (14-36) U/L Troponin I (0.000-0.034) ng/mL Total Protein 5.6 L (6.3-8.2) g/dL Albumin 2.8 L (3.5-5.0) g/dL 06/22/21 06/22/21 06/22/21 Range/Units 01:58 07:58 07:58 WBC (3.8-10.6) k/uL RBC 2.33 L (3.80-5.40) m/uL Hgb 7.0 L (11.4-16.0) gm/dL Hct 22.4 L (34.0-46.0) % MCHC (31.0-37.0) g/dL Neutrophils # (1.3-7.7) k/uL APTT 77.3 H (22.0-30.0) sec Sodium 134 L (137-145) mmol/L Carbon Dioxide (22-30) mmol/L BUN 22 H (7-17) mg/dL Creatinine 1.36 H (0.52-1.04) mg/dL Glucose 60 L (74-99) mg/dL POC Glucose (mg/dL) (75-99) mg/dL Calcium 8.2 L (8.4-10.2) mg/dL AST (14-36) U/L Troponin I (0.000-0.034) ng/mL Total Protein 5.5 L (6.3-8.2) g/dL Albumin 2.6 L (3.5-5.0) g/dL 06/22/21 Range/Units 07:58 WBC (3.8-10.6) k/uL RBC (3.80-5.40) m/uL Hgb (11.4-16.0) gm/dL Hct (34.0-46.0) % MCHC (31.0-37.0) g/dL Neutrophils # (1.3-7.7) k/uL APTT (22.0-30.0) sec Sodium (137-145) mmol/L Carbon Dioxide (22-30) mmol/L BUN (7-17) mg/dL Creatinine (0.52-1.04) mg/dL Glucose (74-99) mg/dL POC Glucose (mg/dL) (75-99) mg/dL Calcium (8.4-10.2) mg/dL AST (14-36) U/L Troponin I 1.840 H* (0.000-0.034) ng/mL Total Protein (6.3-8.2) g/dL Albumin (3.5-5.0) g/dL Microbiology - Last 24 Hours (Table) 06/17/21 10:53 Blood Culture - Preliminary Blood No Growth after 96 hours 06/17/21 10:53 Blood Culture - Preliminary Blood No Growth after 96 hours Assessment and Plan Assessment: Assessment #1 acute coronary event #2 paroxysmal atrial fibrillation which is new #3 possible TIA/CVA #4 coronary artery disease #5 cardiomyopathy seems to be ischemic Plan #1 DC heart catheterization today #2 continue heparin IV. So K from the neuro standpoint of view #3 consider oral anticoagulation down the line #4 follow-up with the patient
--- NOTE | 2021-06-22 09:52 | P.PN ---
Subjective Progress Note Date: 06/22/21 Patient seen and examined lying in bed. Code stroke was called on the patient this morning. Apparently when her nurse checked on her she was aphasic with confusion. Patient had a CT of the brain that showed age-related atrophic and chronic small vessel ischemic change without acute intracranial process seen at this time. At this current time she is alert and oriented to self and place. States pain in her left lower extremity has improved some. She is afebrile. Patient had elevated troponins over the weekend. Cardiology was consulted and are following. Patient was started on a heparin drip. They mention possible cardiac catheterization. Today troponin double to 1.84. WBC 9.8 hemoglobin 7.0 Objective - Vital Signs Vital signs: Vital Signs Temp 97.1 F L 06/22/21 08:08 Pulse 133 H 06/22/21 08:08 Resp 20 06/22/21 08:10 BP 125/62 06/22/21 08:08 Pulse Ox 96 06/22/21 08:08 Intake & Output 06/21/21 06/22/21 06/22/21 18:59 06:59 18:59 Intake Total 608.000 100.105 10 Output Total 1800 1950 Balance -1192.000 -1849.895 10 Intake: IV 10 Invasive Line 6 10 Intake, IV Titration 250.000 100.105 Amount Heparin Sod,Pork in 0.45% 250.000 100.105 NaCl 25,000 unit In 0.45 % NaCl 1 250ml.bag @ 12 UNITS/KG/HR 9.961 mls/hr IV .Q24H [facility] Rx#: [id number] Oral 358 Output: Urine 1800 1950 Other: Voiding Method Indwelling Catheter Indwelling Catheter Indwelling Catheter - Exam General appearance: The patient is alert, oriented, appears in no acute distress. HET: Head is normocephalic and atraumatic. Neck: Supple. Extremities: Bilateral lower extremities warm to the touch. Bilateral lower extremity edema. Left lower extremity with dressing clean dry and intact. Nonpalpable DP or PT pulses. Monophasic DP signal. Neurological: No focal deficits. Strength and sensation are grossly intact. - Labs CBC & Chem 7: 06/22/21 07:58 06/22/21 07:58 Labs: Abnormal Lab Results - Last 24 Hours (Table) 06/21/21 06/21/21 06/21/21 Range/Units 11:19 11:19 11:19 WBC 13.4 H (3.8-10.6) k/uL RBC 2.48 L (3.80-5.40) m/uL Hgb 7.4 L (11.4-16.0) gm/dL Hct 24.2 L (34.0-46.0) % MCHC 30.7 L (31.0-37.0) g/dL Neutrophils # 10.1 H (1.3-7.7) k/uL APTT 41.7 H (22.0-30.0) sec Sodium 133 L (137-145) mmol/L Carbon Dioxide 18 L (22-30) mmol/L BUN 25 H (7-17) mg/dL Creatinine 1.18 H (0.52-1.04) mg/dL Glucose 180 H (74-99) mg/dL POC Glucose (mg/dL) (75-99) mg/dL Calcium (8.4-10.2) mg/dL AST (14-36) U/L Total Protein (6.3-8.2) g/dL Albumin (3.5-5.0) g/dL 06/21/21 06/21/21 06/21/21 Range/Units 11:49 16:46 17:31 WBC (3.8-10.6) k/uL RBC (3.80-5.40) m/uL Hgb (11.4-16.0) gm/dL Hct (34.0-46.0) % MCHC (31.0-37.0) g/dL Neutrophils # (1.3-7.7) k/uL APTT 36.6 H (22.0-30.0) sec Sodium (137-145) mmol/L Carbon Dioxide (22-30) mmol/L BUN (7-17) mg/dL Creatinine (0.52-1.04) mg/dL Glucose (74-99) mg/dL POC Glucose (mg/dL) 191 H 244 H (75-99) mg/dL Calcium (8.4-10.2) mg/dL AST (14-36) U/L Total Protein (6.3-8.2) g/dL Albumin (3.5-5.0) g/dL 06/21/21 06/22/21 06/22/21 Range/Units 20:20 01:58 01:58 WBC 11.7 H (3.8-10.6) k/uL RBC 2.30 L (3.80-5.40) m/uL Hgb 7.0 L (11.4-16.0) gm/dL Hct 22.1 L (34.0-46.0) % MCHC (31.0-37.0) g/dL Neutrophils # (1.3-7.7) k/uL APTT (22.0-30.0) sec Sodium 133 L (137-145) mmol/L Carbon Dioxide 20 L (22-30) mmol/L BUN 24 H (7-17) mg/dL Creatinine 1.26 H (0.52-1.04) mg/dL Glucose 104 H (74-99) mg/dL POC Glucose (mg/dL) 267 H (75-99) mg/dL Calcium 8.3 L (8.4-10.2) mg/dL AST 38 H (14-36) U/L Total Protein 5.6 L (6.3-8.2) g/dL Albumin 2.8 L (3.5-5.0) g/dL 06/22/21 06/22/21 Range/Units 01:58 07:58 WBC (3.8-10.6) k/uL RBC 2.33 L (3.80-5.40) m/uL Hgb 7.0 L (11.4-16.0) gm/dL Hct 22.4 L (34.0-46.0) % MCHC (31.0-37.0) g/dL Neutrophils # (1.3-7.7) k/uL APTT 77.3 H (22.0-30.0) sec Sodium (137-145) mmol/L Carbon Dioxide (22-30) mmol/L BUN (7-17) mg/dL Creatinine (0.52-1.04) mg/dL Glucose (74-99) mg/dL POC Glucose (mg/dL) (75-99) mg/dL Calcium (8.4-10.2) mg/dL AST (14-36) U/L Total Protein (6.3-8.2) g/dL Albumin (3.5-5.0) g/dL Microbiology - Last 24 Hours (Table) 06/17/21 10:53 Blood Culture - Preliminary Blood No Growth after 96 hours 06/17/21 10:53 Blood Culture - Preliminary Blood No Growth after 96 hours Assessment and Plan Assessment: 1. Nonhealing left lower extremity wound 2. Altered mental status changes, aphasic 3. Elevated troponins 4. History of diabetes mellitus with diabetic neuropathy 5. History of coronary artery disease status post heart catheterization and stent Plan: 1. Dakin's solution half-strength wet-to-dry daily 2. Elevate lower extremities 3. Apply Mediboot heel protectors to lower extremity 4. Continue with recommendations per cardiology 5. Await recommendations from neurology 6. No plans on surgical intervention at this time due to above Thank you for this consultation, we will continue to follow. The impression and plan of care has been dictated as directed. Dr. Groves I performed a history and examination of this patient, discussed the same with the dictator. I agree with the dictator's note ,documented as a scribe. Any additional findings or plans will be noted.
[2021-06-22 10:00] LABS: Partial Thromboplastin Time 61.9 sec (22.0-30.0); Prothrombin Time 10.7 sec (9.0-12.0)
[2021-06-22 10:46] LABS: Reticulocyte % 4.4 % (0.5-2.0)
[2021-06-22] MEDS ORDERED: FUROSEMIDE 10 MG/ML 4 ML VIAL IV STA (10:46)
--- NOTE | 2021-06-22 10:47 | P.PN ---
Subjective Patient is seen in follow-up for acute kidney injury. Renal function slightly worse. Patient has slurred speech this morning and code stroke was called. Brain CT showed no acute changes. CT angiogram showed 50% left ICA stenosis, bilateral pleural effusions, stenosis and left [employer] BED and a CVA. Bilateral carotid atherosclerotic changes were noted as well. Currently resting in bed. Blood pressure 125/62. Patient is not a reliable historian at this time. Has been receiving IV Lasix. Nonoliguric. Has a Triana catheter. Vital signs are stable. General: Awake. HEENT: Nasal cannula. LUNGS: Breath sounds decreased. HEART: Tachycardic. ABDOMEN: Soft, no distention. EXTREMITITES: Trace edema. Objective - Vital Signs Vital signs: Vital Signs Temp 97.1 F L 06/22/21 08:08 Pulse 133 H 06/22/21 08:08 Resp 20 06/22/21 08:10 BP 125/62 06/22/21 08:08 Pulse Ox 96 06/22/21 08:08 Intake & Output 06/21/21 06/22/21 06/22/21 18:59 06:59 18:59 Intake Total 608.000 100.105 10 Output Total 1800 1950 Balance -1192.000 -1849.895 10 Intake: IV 10 Invasive Line 6 10 Intake, IV Titration 250.000 100.105 Amount Heparin Sod,Pork in 0.45% 250.000 100.105 NaCl 25,000 unit In 0.45 % NaCl 1 250ml.bag @ 12 UNITS/KG/HR 9.961 mls/hr IV .Q24H [facility] Rx#: [id number] Oral 358 Output: Urine 1800 1950 Other: Voiding Method Indwelling Catheter Indwelling Catheter Indwelling Catheter - Labs CBC & Chem 7: 06/22/21 07:58 06/22/21 07:58 Labs: Abnormal Lab Results - Last 24 Hours (Table) 06/21/21 06/21/21 06/21/21 Range/Units 11:19 11:19 11:19 WBC 13.4 H (3.8-10.6) k/uL RBC 2.48 L (3.80-5.40) m/uL Hgb 7.4 L (11.4-16.0) gm/dL Hct 24.2 L (34.0-46.0) % MCHC 30.7 L (31.0-37.0) g/dL Neutrophils # 10.1 H (1.3-7.7) k/uL APTT 41.7 H (22.0-30.0) sec Sodium 133 L (137-145) mmol/L Carbon Dioxide 18 L (22-30) mmol/L BUN 25 H (7-17) mg/dL Creatinine 1.18 H (0.52-1.04) mg/dL Glucose 180 H (74-99) mg/dL POC Glucose (mg/dL) (75-99) mg/dL Calcium (8.4-10.2) mg/dL AST (14-36) U/L Troponin I (0.000-0.034) ng/mL Total Protein (6.3-8.2) g/dL Albumin (3.5-5.0) g/dL 06/21/21 06/21/21 06/21/21 Range/Units 11:49 16:46 17:31 WBC (3.8-10.6) k/uL RBC (3.80-5.40) m/uL Hgb (11.4-16.0) gm/dL Hct (34.0-46.0) % MCHC (31.0-37.0) g/dL Neutrophils # (1.3-7.7) k/uL APTT 36.6 H (22.0-30.0) sec Sodium (137-145) mmol/L Carbon Dioxide (22-30) mmol/L BUN (7-17) mg/dL Creatinine (0.52-1.04) mg/dL Glucose (74-99) mg/dL POC Glucose (mg/dL) 191 H 244 H (75-99) mg/dL Calcium (8.4-10.2) mg/dL AST (14-36) U/L Troponin I (0.000-0.034) ng/mL Total Protein (6.3-8.2) g/dL Albumin (3.5-5.0) g/dL 06/21/21 06/22/21 06/22/21 Range/Units 20:20 01:58 01:58 WBC 11.7 H (3.8-10.6) k/uL RBC 2.30 L (3.80-5.40) m/uL Hgb 7.0 L (11.4-16.0) gm/dL Hct 22.1 L (34.0-46.0) % MCHC (31.0-37.0) g/dL Neutrophils # (1.3-7.7) k/uL APTT (22.0-30.0) sec Sodium 133 L (137-145) mmol/L Carbon Dioxide 20 L (22-30) mmol/L BUN 24 H (7-17) mg/dL Creatinine 1.26 H (0.52-1.04) mg/dL Glucose 104 H (74-99) mg/dL POC Glucose (mg/dL) 267 H (75-99) mg/dL Calcium 8.3 L (8.4-10.2) mg/dL AST 38 H (14-36) U/L Troponin I (0.000-0.034) ng/mL Total Protein 5.6 L (6.3-8.2) g/dL Albumin 2.8 L (3.5-5.0) g/dL 06/22/21 06/22/21 06/22/21 Range/Units 01:58 07:58 07:58 WBC (3.8-10.6) k/uL RBC 2.33 L (3.80-5.40) m/uL Hgb 7.0 L (11.4-16.0) gm/dL Hct 22.4 L (34.0-46.0) % MCHC (31.0-37.0) g/dL Neutrophils # (1.3-7.7) k/uL APTT 77.3 H 61.9 H (22.0-30.0) sec Sodium (137-145) mmol/L Carbon Dioxide (22-30) mmol/L BUN (7-17) mg/dL Creatinine (0.52-1.04) mg/dL Glucose (74-99) mg/dL POC Glucose (mg/dL) (75-99) mg/dL Calcium (8.4-10.2) mg/dL AST (14-36) U/L Troponin I (0.000-0.034) ng/mL Total Protein (6.3-8.2) g/dL Albumin (3.5-5.0) g/dL 06/22/21 06/22/21 Range/Units 07:58 07:58 WBC (3.8-10.6) k/uL RBC (3.80-5.40) m/uL Hgb (11.4-16.0) gm/dL Hct (34.0-46.0) % MCHC (31.0-37.0) g/dL Neutrophils # (1.3-7.7) k/uL APTT (22.0-30.0) sec Sodium 134 L (137-145) mmol/L Carbon Dioxide (22-30) mmol/L BUN 22 H (7-17) mg/dL Creatinine 1.36 H (0.52-1.04) mg/dL Glucose 60 L (74-99) mg/dL POC Glucose (mg/dL) (75-99) mg/dL Calcium 8.2 L (8.4-10.2) mg/dL AST (14-36) U/L Troponin I 1.840 H* (0.000-0.034) ng/mL Total Protein 5.5 L (6.3-8.2) g/dL Albumin 2.6 L (3.5-5.0) g/dL Microbiology - Last 24 Hours (Table) 06/17/21 10:53 Blood Culture - Preliminary Blood No Growth after 96 hours 06/17/21 10:53 Blood Culture - Preliminary Blood No Growth after 96 hours Assessment and Plan Plan: Assessment: 1. Acute kidney injury mostly prerenal secondary to cardiorenal syndrome and hypotension. Cortisol level. UA fairly benign. Creatinine 1.3 today. Patient received IV contrast today for CTA. 2. Acute on chronic systolic CHF with ejection fraction of 40-45%. 3. Volume overload. 4. Metabolic acidosis secondary to acute kidney injury and lactic acidosis. Improved. 5. Anemia. Iron deficiency noted. Receiving IV iron. Hematology consulted. 6. Rule out chronic kidney disease. Creatinine in June 2019 was 1.23 and 1.6 as of 10/22/2020. It was as low as 1.05 this admission. 7. Left lower extremity wound/cellulitis. On antibiotics. 8. Diabetes mellitus. 9. History of coronary disease status post cardiac stenting in the past. Plan: Lasix 40 mg IV once today. Avoid nephrotoxins. Continue to monitor renal function and urine output. Monitor for contrast-induced acute kidney injury. Check renal ultrasound.
[2021-06-22] MEDS: LACTOBACILLUS ACIDOPH & BULGAR 1 EACH PACKET PO SCH (11:25)
[2021-06-22 11:57] LABS: Glucose,Whole Blood 115 mg/dL (75-99)
[2021-06-22] MEDS: SODIUM FERRIC GLUCONAT-SUCROSE 125 MG in SODIUM CHLORIDE 0.9% 100 ML IVPB SCH (12:18)
[2021-06-22] MEDS: HEPARIN SOD,PORK IN 0.45% NACL 25,000 UNIT in 0.45% NACL 1 250ML.BAG IV SCH (12:22)
[2021-06-22] MEDS: LACTATED RINGERS 1,000 ML IV SCH (12:24)
--- NOTE | 2021-06-22 13:15 | US ---
EXAMINATION TYPE: US kidneys/renal and bladder DATE OF EXAM: 06/22/2021 COMPARISON: Ultrasound 06/17/2021 CLINICAL HISTORY: pravin. Abnormal PRAVIN EXAM MEASUREMENTS: Right Kidney: 11.3 x 4.5 x 4.5 cm Left Kidney: 11.2 x 5.0 x 5.9 cm Right Kidney: No hydronephrosis or masses seen Left Kidney: No hydronephrosis or masses seen the lower pole of the left kidney not well seen Bladder: Not distended Bilateral Jets seen: No There is no evidence for hydronephrosis at this point in time. Cortical medullary differentiation is maintained. No nephrolithiasis is seen. No masses are identified. IMPRESSION: No evident hydronephrosis. Renal sizes as described.
[2021-06-22 14:36] VITALS: BMI 34.5
[2021-06-22 15:24] LABS: Vitamin B12 >2000.0 pg/mL (200.0-944.0)
--- NOTE | 2021-06-22 15:36 | P.CNNES ---
History of Present Illness Consult date: 06/22/21 Requesting physician: Hernan Maciel Reason for Consult: altered mental status change. Code stroke History of Present Illness: This is an 80-year-old woman with medical history of diabetes mellitus, hypertension, peripheral vascular disease, coronary artery disease status post stent presented emergency department on 06/17/2021 for pain over the left lower extremity. Patient was found to have nonhealing wounds for many month. Neurology is consulted for altered mental status and as result code stroke was activated today. Per the patient's nurse today around shift change the patient was having the word salad and was not making sense that she was having slurred speech last normal was around 6 this a.m. today. As a result stroke code was activated. CT of the head was done which is reported as age-related atrophic and chronic small vessel ischemic change without acute intracranial process seen at this time. I personally reviewed the CT of the head there is no acute subacute ischemia there is no truncal normal hemorrhage. Patient has generalized atrophy appropriate for her age. CT angiography of the head and neck is reported that the neck has moderate proximal left ICA stenosis about 50% and mild on the right. Mild to moderate bilateral pleural effusion. If you septal lines suggest pulmonary vascular congestion. While the CT angiography of the head is reported as markedly the diminutive probably severely stenotic P1 segment left IAIN. Limited v visualization to nonvisualization of P2 segment and more distal left TREE SAPPER could reflect sequela of severe stenosis or occlusion. Possible tiny 2 mm saccular aneurysm projecting anteriorly from the left TREE SAPPER at the expected takeoff of the posture from indicating artery. Moderate to severe irregular alpha sclerotic stenosis throughout the left carotid siphons including the cavernous and supraclinoid portions. Moderate irregular of his chronic stenosis throughout the right carotid siphons. Moderate focal stenosis midsegment of the basilar artery. Additional moderate focal stenosis a 3 segment left IAIN. Per the patient's nurse the stroke attended all call was involved and no IV TPA since the patient was on IV heparin drip and the risk outweighed the benefit. Per the patient nurse during this event today at patient had a proximal atrial fibrillation which is new. Upon seeing the patient that she was sleepy and that she was accompanied by her who stated that the patient does not have any history of strokes or TIAs in the past or any history of seizures. Of note the during this hospital stay the patient had elevated troponin and was on IV heparin drip she was scheduled for a heart catheterization today but it was discontinued because of the event today. Most recent blood pressure is 111/69 with a heart rate of 84 and temperature of 90.6 early in the morning today around 656 her blood pressure was 93/49 and roger or to that had a blood pressure of 87/55. Her most recent glucose serum around 758 is 60 and her sugar has been labile her most recent hemoglobin A1c during this hospitalization is 8.5 She was found to have acute kidney insufficiency during this hospital visit. Her creatinine on presentation is 1.66 and a got as low as 1.05 but now is trending up and most recent creatinine is 1.36. Also she is pending to have her left lower extremity do provide Vitamin B12 is 1305. Magnesium is 2.2 Calcium is 8.2. Urinalysis negative for urinary tract infection 2-D echo was reported as left ventricular size is normal. Mild concentric left ventricle hypertrophy. Ejection fraction of 40-45%. Apical left ventricle wall motion is hypokinetic at different regions. Left atrium is mildly dilated. Mild to moderate tricuspid regurgitation. Moderate pulmonary hypertension. Review of Systems Review of systems limited by the per positive and negative as per HPI Past Medical History Past Medical History: Diabetes Mellitus, GERD/Reflux, Hypertension, Osteoarthritis (OA), Skin Disorder, Syncope, Vascular Disorder Additional Past Medical History / Comment(s): Arthritis in lower back. Poor circulation in legs, wound left lower leg calf area w/ pain, neuropathy in feet, [facility]. Edema bilateral lower extremities, wears TEDS on right leg. Shortness of breath.shortness of breath History of Any Multi-Drug Resistant Organisms: None Reported Past Surgical History: Appendectomy, Breast Surgery, Ear Surgery, Heart Catheterization, Heart Catheterization With Stent, Hysterectomy Additional Past Surgical History / Comment(s): Varicose vein stripping left leg, left ear myringotomy/tubes, colonoscopy, left breast biopsy, bilateral cataracts, left leg wound debridement. Past Anesthesia/Blood Transfusion Reactions: No Reported Reaction Date of Last Stent Placement:: 11/26 Past Psychological History: No Psychological Hx Reported Smoking Status: Former smoker Past Alcohol Use History: Rare Past Drug Use History: None Reported - Past Family History Father Family Medical History: Cancer Additional Family Medical History / Comment(s): COLON CANCER. Mother Family Medical History: Diabetes Mellitus, Renal Disease Additional Family Medical History / Comment(s): RENAL FAILURE. Brother(s) Family Medical History: Cancer Additional Family Medical History / Comment(s): 3 brothers - 2 had stomach cancer, 1 had esophagueal cancer. Medications and Allergies Home Medications Medication Instructions Recorded Confirmed Type Insulin Glargine [Lantus] 8 unit SQ HS 04/26/14 06/17/21 History metFORMIN HCL [Glucophage] 500 mg PO AC-BRKFST 04/26/14 06/17/21 History Aspirin EC [Ecotrin Low Dose] 81 mg PO DAILY 05/08/18 06/17/21 History INSULIN ASPART (NovoLOG) [NovoLOG 5 - 12 unit SQ AC-TID 05/08/18 06/17/21 History (formulary)] Pantoprazole Sodium 40 mg PO DAILY 05/08/18 06/17/21 History gemfibroziL [Lopid] 600 mg PO AC-BID 05/08/18 06/17/21 History Cholecalciferol [Vitamin D3 (25 2,000 unit PO DAILY 06/08/19 06/17/21 History Mcg = 1000 Iu)] Cyanocobalamin (Vitamin B-12) 2,000 mcg PO DAILY 06/08/19 06/17/21 History [Vitamin B-12] Famotidine [Pepcid] 20 mg PO HS 06/08/19 06/17/21 History Ferrous Sulfate [Feosol] 325 mg PO DAILY 06/08/19 06/17/21 History Flaxseed Oil 1,000 mg PO BID 06/08/19 06/17/21 History L.acidoph,Paracasei, B.lactis 1 cap PO DAILY 06/08/19 06/17/21 History [Probiotic] Acetaminophen [Tylenol Extra 1,500 mg PO Q6H PRN 03/30/21 06/17/21 History Strength] Ascorbic Acid [Vitamin C] 1,000 mg PO DAILY 03/30/21 06/17/21 History Furosemide [Lasix] 40 mg PO DAILY 03/30/21 06/17/21 History hydroCHLOROthiazide [Hydrodiuril] 25 mg PO DAILY 03/30/21 06/17/21 History ALPRAZolam [Xanax] 0.25 mg PO DAILY PRN 06/17/21 06/17/21 History Canagliflozin [Invokana] 100 mg PO DAILY 06/17/21 06/17/21 History Carvedilol [Coreg] 6.25 mg PO BID 06/17/21 06/17/21 History Fluticasone Nasal [place] [Flonase 1 spray EA NOSTRIL DAILY PRN 06/17/21 06/17/21 History Nasal [place]] Losartan Potassium [Cozaar] 25 mg PO DAILY 06/17/21 06/17/21 History Pregabalin [Lyrica] 75 mg PO BID 06/17/21 06/17/21 History Allergies Allergy/AdvReac Type Severity Reaction Status Date / Time bacitracin Allergy Unknown Verified 06/17/21 10:08 [From Neosporin ([id number])] bacitracin zinc Allergy Unknown Verified 06/17/21 10:08 [From Neosporin ([id number])] latex Allergy Rash/Hives Verified 06/17/21 10:08 neomycin sulfate Allergy Unknown Verified 06/17/21 10:08 [From Neosporin ([id number])] polymyxin B Allergy Unknown Verified 06/17/21 10:08 [From Neosporin ([id number])] Penicillins AdvReac Rash & Verified 06/17/21 10:08 Fatigue Sulfa (Sulfonamide AdvReac Rash & Verified 06/17/21 10:08 Antibiotics) Fatigue Physical Examination - Vital Signs Vital Signs: Vital Signs Temp Pulse Pulse Pulse Resp BP Pulse Ox 06/22/21 11:02 98.6 F 84 22 111/69 97 06/22/21 08:10 20 06/22/21 08:08 97.1 F L 133 H 20 125/62 96 06/22/21 06:56 98.3 F 93/49 06/22/21 03:52 92 06/22/21 03:43 98.0 F 86 18 102/51 96 06/22/21 03:39 92 06/22/21 01:42 100 18 06/21/21 23:42 99.6 F 100 18 101/63 97 06/21/21 23:37 68 18 06/21/21 20:00 98 F 68 18 100/55 99 06/21/21 16:00 91 18 135/74 99 06/21/21 15:31 92 18 06/21/21 15:22 90 18 06/21/21 13:50 92 Intake and Output 06/21/21 06/22/21 06/22/21 22:59 06:59 14:59 Intake Total 204.207 100.105 132.849 Output Total 2200 850 Balance -1995.793 -749.895 132.849 Intake: IV 10 Invasive Line 6 10 Intake, IV Titration 84.207 100.105 122.849 Amount Heparin Sod,Pork in 0.45% 84.207 100.105 122.849 NaCl 25,000 unit In 0.45 % NaCl 1 250ml.bag @ 12 UNITS/KG/HR 9.961 mls/hr IV .Q24H [facility] Rx#: [id number] Oral 120 Output: Urine 2200 850 Other: Voiding Method Indwelling Catheter Indwelling Catheter Indwelling Catheter GENERAL: The patient is lying in bed and is not in acute distress. CHEST: The heart rate is regular rate rhythm. No murmurs to auscultation. No carotid bruit bilaterally. LUNG: Clear to auscultation bilaterally no wheezing noted throughout. Not labored breathing. ABDOMEN/GI: Bowel sounds present in all 4 quadrants. No tenderness to palpation throughout. INTEGUMENTARY: Left lower extremity is wrapped. NEUROLOGICAL: Limited. Higher mental function: The patient is sleeping but upon waking up it was hard to keep her up. She correctly stated her name. She kept on saying "leave me alone" or "what did I tell you":. She correctly name pen and followed few simple commands. Language is limited but was speaking clearly. Cranial nerves: The pupils are round, equal and reactive to light. [place] right nasolabial flattening but her felt was baseline. No dysarthria is noted. Shoulder shrug is normal bilaterally. Motor: The strength is moving the right side more than the left. Normal bulk. Cerebellum: Could not assess. Sensation: Sensation is could not assess light touch. Reflexes (right/left): 1+ throughout. Plantars are mute bilaterally. Results - Laboratory Findings CBC and BMP: 06/22/21 07:58 06/22/21 07:58 Abnormal Lab Findings: Abnormal Labs 06/17/21 06/17/21 06/17/21 10:16 10:53 10:53 WBC RBC 2.80 L Hgb 8.7 L Hct 27.4 L MCV MCHC RDW Plt Count 520 H Immature Gran # Neutrophils # Eosinophils # ESR Retic Count APTT 20.9 L D-Dimer Sodium Chloride Carbon Dioxide BUN Creatinine Glucose POC Glucose (mg/dL) 367 H Hemoglobin A1c Plasma Lactic Acid Cody Calcium Iron % Saturation AST Troponin I C-Reactive Protein Total Protein Albumin Vitamin B12 Urine Appearance Urine Glucose (UA) Urine Blood Ur Squamous Epith Cells Urine Bacteria 06/17/21 06/17/21 06/17/21 10:53 10:53 10:53 WBC RBC Hgb Hct MCV MCHC RDW Plt Count Immature Gran # Neutrophils # Eosinophils # ESR Retic Count APTT D-Dimer Sodium 135 L Chloride Carbon Dioxide BUN 69 H Creatinine 1.66 H Glucose 296 H POC Glucose (mg/dL) Hemoglobin A1c Plasma Lactic Acid Cody 6.1 H* Calcium Iron % Saturation AST Troponin I C-Reactive Protein Total Protein Albumin Vitamin B12 Urine Appearance Cloudy H Urine Glucose (UA) 4+ H Urine Blood Moderate H Ur Squamous Epith Cells 15 H Urine Bacteria Many H 06/17/21 06/17/21 06/17/21 10:53 14:39 14:39 WBC RBC 2.80 L Hgb 8.6 L Hct 28.4 L MCV 101.4 H MCHC 30.3 L RDW Plt Count 451 H Immature Gran # Neutrophils # Eosinophils # ESR 84 H Retic Count APTT D-Dimer Sodium 134 L Chloride Carbon Dioxide 17 L BUN 65 H Creatinine 1.38 H Glucose 342 H POC Glucose (mg/dL) Hemoglobin A1c Plasma Lactic Acid Cody Calcium Iron % Saturation AST Troponin I C-Reactive Protein 2.0 H Total Protein Albumin Vitamin B12 Urine Appearance Urine Glucose (UA) Urine Blood Ur Squamous Epith Cells Urine Bacteria 06/17/21 06/17/21 06/17/21 17:44 19:59 21:24 WBC RBC Hgb Hct MCV MCHC RDW Plt Count Immature Gran # Neutrophils # Eosinophils # ESR Retic Count APTT D-Dimer Sodium Chloride Carbon Dioxide BUN Creatinine Glucose POC Glucose (mg/dL) 397 H 302 H 178 H Hemoglobin A1c Plasma Lactic Acid Cody Calcium Iron % Saturation AST Troponin I C-Reactive Protein Total Protein Albumin Vitamin B12 Urine Appearance Urine Glucose (UA) Urine Blood Ur Squamous Epith Cells Urine Bacteria 06/18/21 06/18/21 06/18/21 05:10 05:10 05:10 WBC RBC 2.88 L Hgb 8.6 L Hct 28.6 L MCV MCHC 30.0 L RDW Plt Count 458 H Immature Gran # Neutrophils # Eosinophils # ESR Retic Count APTT D-Dimer Sodium Chloride 110 H Carbon Dioxide 16 L BUN 44 H Creatinine 1.05 H Glucose POC Glucose (mg/dL) Hemoglobin A1c 8.5 H Plasma Lactic Acid Cody Calcium 8.3 L Iron % Saturation AST Troponin I C-Reactive Protein Total Protein Albumin 3.2 L Vitamin B12 Urine Appearance Urine Glucose (UA) Urine Blood Ur Squamous Epith Cells Urine Bacteria 06/18/21 06/18/21 06/18/21 11:43 16:23 20:23 WBC RBC Hgb Hct MCV MCHC RDW Plt Count Immature Gran # Neutrophils # Eosinophils # ESR Retic Count APTT D-Dimer Sodium Chloride Carbon Dioxide BUN Creatinine Glucose POC Glucose (mg/dL) 123 H 397 H 319 H Hemoglobin A1c Plasma Lactic Acid Cody Calcium Iron % Saturation AST Troponin I C-Reactive Protein Total Protein Albumin Vitamin B12 Urine Appearance Urine Glucose (UA) Urine Blood Ur Squamous Epith Cells Urine Bacteria 06/19/21 06/19/21 06/19/21 06:02 06:02 06:02 WBC 10.86 H RBC 2.48 L Hgb 7.2 L Hct 24.6 L MCV 99.2 H MCHC 29.3 L RDW 14.9 H Plt Count Immature Gran # 0.08 H Neutrophils # 8.02 H Eosinophils # 0.45 H ESR Retic Count APTT D-Dimer Sodium 133 L Chloride 113 H Carbon Dioxide 20 L BUN 26 H Creatinine 1.12 H Glucose 175 H POC Glucose (mg/dL) Hemoglobin A1c Plasma Lactic Acid Cody Calcium 8.0 L Iron 15 L % Saturation 4.80 L AST Troponin I C-Reactive Protein Total Protein 5.6 L Albumin 2.7 L Vitamin B12 1305.0 H Urine Appearance Urine Glucose (UA) Urine Blood Ur Squamous Epith Cells Urine Bacteria 06/19/21 06/19/21 06/19/21 07:18 11:15 15:09 WBC RBC Hgb Hct MCV MCHC RDW Plt Count Immature Gran # Neutrophils # Eosinophils # ESR Retic Count APTT D-Dimer Sodium Chloride Carbon Dioxide BUN Creatinine Glucose POC Glucose (mg/dL) 171 H 260 H Hemoglobin A1c Plasma Lactic Acid Cody Calcium Iron % Saturation AST Troponin I 0.065 H* C-Reactive Protein Total Protein Albumin Vitamin B12 Urine Appearance Urine Glucose (UA) Urine Blood Ur Squamous Epith Cells Urine Bacteria 06/19/21 06/19/21 06/19/21 16:37 17:06 17:06 WBC 13.5 H RBC 2.72 L Hgb 8.3 L Hct 26.9 L MCV MCHC 30.9 L RDW Plt Count 463 H Immature Gran # Neutrophils # 11.4 H Eosinophils # ESR Retic Count APTT D-Dimer 1.58 H Sodium Chloride Carbon Dioxide BUN Creatinine Glucose POC Glucose (mg/dL) 386 H Hemoglobin A1c Plasma Lactic Acid Cody Calcium Iron % Saturation AST Troponin I C-Reactive Protein Total Protein Albumin Vitamin B12 Urine Appearance Urine Glucose (UA) Urine Blood Ur Squamous Epith Cells Urine Bacteria 06/19/21 06/19/21 06/20/21 21:03 21:40 00:00 WBC RBC Hgb Hct MCV MCHC RDW Plt Count Immature Gran # Neutrophils # Eosinophils # ESR Retic Count APTT 40.3 H D-Dimer Sodium Chloride Carbon Dioxide BUN Creatinine Glucose POC Glucose (mg/dL) 461 H Hemoglobin A1c Plasma Lactic Acid Cody Calcium Iron % Saturation AST Troponin I 0.941 H* C-Reactive Protein Total Protein Albumin Vitamin B12 Urine Appearance Urine Glucose (UA) Urine Blood Ur Squamous Epith Cells Urine Bacteria 06/20/21 06/20/21 06/20/21 06:41 07:36 07:43 WBC 11.4 H RBC 2.46 L Hgb 7.5 L Hct 23.9 L MCV MCHC RDW Plt Count 456 H Immature Gran # Neutrophils # 8.5 H Eosinophils # ESR Retic Count APTT 52.4 H D-Dimer Sodium Chloride Carbon Dioxide BUN Creatinine Glucose POC Glucose (mg/dL) 276 H Hemoglobin A1c Plasma Lactic Acid Cody Calcium Iron % Saturation AST Troponin I C-Reactive Protein Total Protein Albumin Vitamin B12 Urine Appearance Urine Glucose (UA) Urine Blood Ur Squamous Epith Cells Urine Bacteria 06/20/21 06/20/21 06/20/21 07:43 11:14 16:57 WBC RBC Hgb Hct MCV MCHC RDW Plt Count Immature Gran # Neutrophils # Eosinophils # ESR Retic Count APTT D-Dimer Sodium 131 L Chloride Carbon Dioxide 18 L BUN 26 H Creatinine 1.22 H Glucose 240 H POC Glucose (mg/dL) 202 H 456 H Hemoglobin A1c Plasma Lactic Acid Cody Calcium 8.3 L Iron % Saturation AST Troponin I C-Reactive Protein Total Protein 5.9 L Albumin 3.0 L Vitamin B12 Urine Appearance Urine Glucose (UA) Urine Blood Ur Squamous Epith Cells Urine Bacteria 06/20/21 06/21/21 06/21/21 19:58 07:10 11:19 WBC RBC Hgb Hct MCV MCHC RDW Plt Count Immature Gran # Neutrophils # Eosinophils # ESR Retic Count APTT D-Dimer Sodium 133 L Chloride Carbon Dioxide 18 L BUN 25 H Creatinine 1.18 H Glucose 180 H POC Glucose (mg/dL) 441 H 207 H Hemoglobin A1c Plasma Lactic Acid Cody Calcium Iron % Saturation AST Troponin I C-Reactive Protein Total Protein Albumin Vitamin B12 Urine Appearance Urine Glucose (UA) Urine Blood Ur Squamous Epith Cells Urine Bacteria 06/21/21 06/21/21 06/21/21 11:19 11:19 11:49 WBC 13.4 H RBC 2.48 L Hgb 7.4 L Hct 24.2 L MCV MCHC 30.7 L RDW Plt Count Immature Gran # Neutrophils # 10.1 H Eosinophils # ESR Retic Count APTT 41.7 H D-Dimer Sodium Chloride Carbon Dioxide BUN Creatinine Glucose POC Glucose (mg/dL) 191 H Hemoglobin A1c Plasma Lactic Acid Cody Calcium Iron % Saturation AST Troponin I C-Reactive Protein Total Protein Albumin Vitamin B12 Urine Appearance Urine Glucose (UA) Urine Blood Ur Squamous Epith Cells Urine Bacteria 06/21/21 06/21/21 06/21/21 16:46 17:31 20:20 WBC RBC Hgb Hct MCV MCHC RDW Plt Count Immature Gran # Neutrophils # Eosinophils # ESR Retic Count APTT 36.6 H D-Dimer Sodium Chloride Carbon Dioxide BUN Creatinine Glucose POC Glucose (mg/dL) 244 H 267 H Hemoglobin A1c Plasma Lactic Acid Cody Calcium Iron % Saturation AST Troponin I C-Reactive Protein Total Protein Albumin Vitamin B12 Urine Appearance Urine Glucose (UA) Urine Blood Ur Squamous Epith Cells Urine Bacteria 06/22/21 06/22/21 06/22/21 01:58 01:58 01:58 WBC 11.7 H RBC 2.30 L Hgb 7.0 L Hct 22.1 L MCV MCHC RDW Plt Count Immature Gran # Neutrophils # Eosinophils # ESR Retic Count APTT 77.3 H D-Dimer Sodium 133 L Chloride Carbon Dioxide 20 L BUN 24 H Creatinine 1.26 H Glucose 104 H POC Glucose (mg/dL) Hemoglobin A1c Plasma Lactic Acid Cody Calcium 8.3 L Iron % Saturation AST 38 H Troponin I C-Reactive Protein Total Protein 5.6 L Albumin 2.8 L Vitamin B12 Urine Appearance Urine Glucose (UA) Urine Blood Ur Squamous Epith Cells Urine Bacteria 06/22/21 06/22/21 06/22/21 07:58 07:58 07:58 WBC RBC 2.33 L Hgb 7.0 L Hct 22.4 L MCV MCHC RDW Plt Count Immature Gran # Neutrophils # Eosinophils # ESR Retic Count APTT 61.9 H D-Dimer Sodium 134 L Chloride Carbon Dioxide BUN 22 H Creatinine 1.36 H Glucose 60 L POC Glucose (mg/dL) Hemoglobin A1c Plasma Lactic Acid Cody Calcium 8.2 L Iron % Saturation AST Troponin I C-Reactive Protein Total Protein 5.5 L Albumin 2.6 L Vitamin B12 Urine Appearance Urine Glucose (UA) Urine Blood Ur Squamous Epith Cells Urine Bacteria 06/22/21 06/22/21 06/22/21 07:58 10:02 11:55 WBC RBC Hgb Hct MCV MCHC RDW Plt Count Immature Gran # Neutrophils # Eosinophils # ESR Retic Count 4.4 H APTT D-Dimer Sodium Chloride Carbon Dioxide BUN Creatinine Glucose POC Glucose (mg/dL) 115 H Hemoglobin A1c Plasma Lactic Acid [place] Calcium Iron % Saturation AST Troponin I 1.840 H* C-Reactive Protein Total Protein Albumin Vitamin B12 Urine Appearance Urine Glucose (UA) Urine Blood Ur Squamous Epith Cells Urine Bacteria Assessment and Plan Assessment: Acute Aphasia and dysarthria seems probable acute CVA. and no IV tpa since risk outweigh benefit. On my examination was limited on examination because she was drowsy. During this event per nurse patient had run of A-fib. Likely underlying metabolic encephalopathy and septic encephalopathy New onset paroxysmal A-fib Intracranial atherosclerosis NSTEMI Episode of hypoglyecemia (as low as 60) Episodes of hypotensive during this admission Acute kidney insufficiency Left lower extremity ulcer and felt had sepsis. Brittle Diabetes Uncontrolled DM (HbA1c 8.5) Hypertension and during this admission has episodes of hypotensive episodes. Sevee peripheral vascular disease History of CAD s/p stent Plan: I ordered MRI of the brain without Urgently. Patient is on aspirin 81 mg daily as well as heparin drip. If possible to hold the heparin drip until we get the MRI to assess the size of the stroke. If benefits of heparin outweigh risk, then recommend to avoid boluses and keep PTT between 45-60. Recommend Lipitor 80 mg daily at bedtime daily. Every 4 neuro checks Ordered lipid panel, TSH and folate level. Consulted PT, OT and [facility] Continue cardiac monitoring Cardiology is on board ID team is on board Vascular surgery team is on board Please avoid any hypotensive and hypoglycemic episode will defer the management to the primary team We'll defer the rest of the medical management to the primary team For DVT prophylaxis the patient is on IV heparin drip. The plan was discussed with the patient's who is at bedside and her nurse. Thank you for the consultation. Raji Comer M.D. Neuro-hospital Time with Patient: Greater than 30
[2021-06-22 17:06] LABS: Glucose,Whole Blood 328 mg/dL (75-99)
--- NOTE | 2021-06-22 17:07 | P.PN ---
Subjective Progress Note Date: 06/22/21 History of Present Illness H&P Date: 06/17/21 Chief Complaint: Infected left leg ulcer for severe pain and tenderness 80-year-old female, seen in the emergency department. She presented to the emergency room with a chief complaint of severe left leg pain with infected ulcer. She developed this ulcer and lost January 2021. The patient has had debridement, by Dr. Triana and Dr. Herrera first one on April 2 one on May. The patient comes into the emergency room, because of weakness. She has a low blood pressure. She is a lactic acid is 6. The primary service was concerned about sepsis. The patient is also complaining about left foot pain, numbness in her left foot, and elevated blood sugar. The ulcer on the medial left leg, has been present for many months, and has gotten worse. There is no fever or chills. The patient has a history of diabetes, hyperlipidemia, hypertension, GERD, osteoarthritis, peripheral vascular occlusive disease, diabetic neuropathy, CAD, with previous heart catheterization and stent placemen t. White count 10.3, hemoglobin 8.7, hematocrit 27.4, and platelet count 520,000. Sodium 135, potassium 4.9, chlorides 98, CO2 22, anion gap 15, BUN 69, and creatinine 1.66. Lactic acid is 6.1. Urine is light yellow and cloudy. There is moderate blood. There is 4+ glucose. There is many bacteria. The patient is not having any urinary tract symptoms. X-rays of the leg and foot, showed only soft tissue changes. The patient is received Rocephin and vancomycin in the ER. Blood pressure has been only in the mid 70s, systolic. She is being transferred to ICU.discussed with the monogram maker Dr. Comer Interval history: 06/19 Patient was examined at the bedside. Patient was transferred out of the ICU overnight Patient is complaining of shortness of breath and a chest x-ray showed interstitial edema. Patient was given a one-time dose of Lasix 40 mg IV push by pulmonary service. Patient denies any chest pain. Pending cardiology consultation 06/20 patient surgery was canceled today due to worsening shortness of breath and elevated troponin. VQ scan was low probability for PE. Cardiology was notified about positive troponin. 06/21 patient seen and examined at the bedside. She still complaining of shortness of breath but she denies any chest pain. Chest x-ray showed congest yuni heart failure patient's been getting Lasix. She is complaining of constipation. Otherwise no acute changes overnight 06/22: Patient had result code stroke was activated today. Per the patient's nurse today around shift change the patient was having the word salad and was not making sense that she was having slurred speech last normal was around 6 this a.m. today. As a result stroke code was activated. CT of the head was done which is reported as age-related atrophic and chronic small vessel ischemic change without acute intracranial process seen at this time. I personally reviewed the CT of the head there is no acute subacute ischemia there is no truncal normal hemorrhage. Patient has generalized atrophy appropriate for her age. CT angiography of the head and neck is reported that the neck has moderate proximal left ICA stenosis about 50% and mild on the right. Mild to moderate bilateral pleural effusion. If you septal lines suggest pulmonary vascular congestion. While the CT angiography of the head is reported as markedly the diminutive probably severely stenotic P1 segment left IAIN. Limited v visualization to nonvisualization of P2 segment and more distal left SHEET ROCKER could reflect sequela of severe stenosis or occlusion. Possible tiny 2 mm saccular aneurysm projecting anteriorly from the left SHEET ROCKER at the expected takeoff of the posture from indicating artery. Moderate to severe irregular alpha sclerotic stenosis throughout the left carotid siphons including the cavernous and supraclinoid portions. Moderate irregular of his chronic stenosis throughout the right carotid siphons. Moderate focal stenosis midsegment of the basilar artery. Additional moderate focal stenosis a 3 segment left IAIN. Per the patient's nurse the stroke attended all call was involved and no IV TPA since the patient was on IV heparin drip and the risk outweighed the benefit. Per the patient nurse during this event today at patient had a proximal atrial fibrillation which is new. Objective - Vital Signs Vital signs: Vital Signs Temp 98.6 F 06/22/21 11:02 Pulse 84 06/22/21 11:02 Resp 22 06/22/21 11:02 BP 111/69 06/22/21 11:02 Pulse Ox 97 06/22/21 11:02 Intake & Output 06/21/21 06/22/21 06/22/21 18:59 06:59 18:59 Intake Total 608.000 100.105 572.849 Output Total 1800 1950 Balance -1192.000 -1849.895 572.849 Weight 83.007 kg Intake: IV 10 Invasive Line 6 10 Intake, IV Titration 250.000 100.105 562.849 Amount Cefepime 2 gm In Sodium 100 Chloride 0.9% 100 ml @ 25 mls/hr IVPB Q12HR [facility] Rx #:[id number] Heparin Sod,Pork in 0.45% 250.000 100.105 122.849 NaCl 25,000 unit In 0.45 % NaCl 1 250ml.bag @ 12 UNITS/KG/HR 9.961 mls/hr IV .Q24H [facility] Rx#: [id number] Lactated Ringers 1,000 ml 240 @ 20 mls/hr IV .Q24H [facility] Rx#:[id number] Sodium Ferric Gluconat- 100 Sucrose 125 mg In Sodium Chloride 0.9% 100 ml @ 100 mls/hr IVPB DAILY [facility] Rx#:[id number] Oral 358 Output: Urine 1800 1950 Other: Voiding Method Indwelling Catheter Indwelling Catheter Indwelling Catheter - Exam General: non toxic, no distress, appears at stated age Derm: warm, dry Head: atraumatic, normocephalic, symmetric Eyes: EOMI, no lid lag, anicteric sclera Mouth: no lip lesion, mucus membranes moist Cardiovascular: S1S2 irregularly irregular Lungs: CTA bilateral, no rhonchi, no rales , no accessory muscle use Abdominal: soft, nontender to palpation, no guarding, no appreciable organomegaly Ext: Left leg ulcer 7 x 6 cm deep with necrotic tissue and pus surrounding cell ulitis and edema. Tender to palpation Neuro: CN II-XI grossly intact, no focal neuro deficits Psych: Alert, oriented, appropriate affect - Labs CBC & Chem 7: 06/22/21 07:58 06/22/21 07:58 Labs: Abnormal Lab Results - Last 24 Hours (Table) 06/21/21 06/21/21 06/21/21 Range/Units 16:46 17:31 20:20 WBC (3.8-10.6) k/uL RBC (3.80-5.40) m/uL Hgb (11.4-16.0) gm/dL Hct (34.0-46.0) % Retic Count (0.5-2.0) % APTT 36.6 H (22.0-30.0) sec Sodium (137-145) mmol/L Carbon Dioxide (22-30) mmol/L BUN (7-17) mg/dL Creatinine (0.52-1.04) mg/dL Glucose (74-99) mg/dL POC Glucose (mg/dL) 244 H 267 H (75-99) mg/dL Calcium (8.4-10.2) mg/dL AST (14-36) U/L Troponin I (0.000-0.034) ng/mL Total Protein (6.3-8.2) g/dL Albumin (3.5-5.0) g/dL Vitamin B12 (200.0-944.0) pg/mL 06/22/21 06/22/21 06/22/21 Range/Units 01:58 01:58 01:58 WBC 11.7 H (3.8-10.6) k/uL RBC 2.30 L (3.80-5.40) m/uL Hgb 7.0 L (11.4-16.0) gm/dL Hct 22.1 L (34.0-46.0) % Retic Count (0.5-2.0) % APTT 77.3 H (22.0-30.0) sec Sodium 133 L (137-145) mmol/L Carbon Dioxide 20 L (22-30) mmol/L BUN 24 H (7-17) mg/dL Creatinine 1.26 H (0.52-1.04) mg/dL Glucose 104 H (74-99) mg/dL POC Glucose (mg/dL) (75-99) mg/dL Calcium 8.3 L (8.4-10.2) mg/dL AST 38 H (14-36) U/L Troponin I (0.000-0.034) ng/mL Total Protein 5.6 L (6.3-8.2) g/dL Albumin 2.8 L (3.5-5.0) g/dL Vitamin B12 (200.0-944.0) pg/mL 06/22/21 06/22/21 06/22/21 Range/Units 07:58 07:58 07:58 WBC (3.8-10.6) k/uL RBC 2.33 L (3.80-5.40) m/uL Hgb 7.0 L (11.4-16.0) gm/dL Hct 22.4 L (34.0-46.0) % Retic Count (0.5-2.0) % APTT 61.9 H (22.0-30.0) sec Sodium 134 L (137-145) mmol/L Carbon Dioxide (22-30) mmol/L BUN 22 H (7-17) mg/dL Creatinine 1.36 H (0.52-1.04) mg/dL Glucose 60 L (74-99) mg/dL POC Glucose (mg/dL) (75-99) mg/dL Calcium 8.2 L (8.4-10.2) mg/dL AST (14-36) U/L Troponin I (0.000-0.034) ng/mL Total Protein 5.5 L (6.3-8.2) g/dL Albumin 2.6 L (3.5-5.0) g/dL Vitamin B12 (200.0-944.0) pg/mL 06/22/21 06/22/21 06/22/21 Range/Units 07:58 10:02 10:02 WBC (3.8-10.6) k/uL RBC (3.80-5.40) m/uL Hgb (11.4-16.0) gm/dL Hct (34.0-46.0) % Retic Count 4.4 H (0.5-2.0) % APTT (22.0-30.0) sec Sodium (137-145) mmol/L Carbon Dioxide (22-30) mmol/L BUN (7-17) mg/dL Creatinine (0.52-1.04) mg/dL Glucose (74-99) mg/dL POC Glucose (mg/dL) (75-99) mg/dL Calcium (8.4-10.2) mg/dL AST (14-36) U/L Troponin I 1.840 H* (0.000-0.034) ng/mL Total Protein (6.3-8.2) g/dL Albumin (3.5-5.0) g/dL Vitamin B12 >2000.0 H (200.0-944.0) pg/mL 06/22/21 Range/Units 11:55 WBC (3.8-10.6) k/uL RBC (3.80-5.40) m/uL Hgb (11.4-16.0) gm/dL Hct (34.0-46.0) % Retic Count (0.5-2.0) % APTT (22.0-30.0) sec Sodium (137-145) mmol/L Carbon Dioxide (22-30) mmol/L BUN (7-17) mg/dL Creatinine (0.52-1.04) mg/dL Glucose (74-99) mg/dL POC Glucose (mg/dL) 115 H (75-99) mg/dL Calcium (8.4-10.2) mg/dL AST (14-36) U/L Troponin I (0.000-0.034) ng/mL Total Protein (6.3-8.2) g/dL Albumin (3.5-5.0) g/dL Vitamin B12 (200.0-944.0) pg/mL Microbiology - Last 24 Hours (Table) 06/17/21 10:53 Blood Culture - Preliminary Blood No Growth after 120 hours 06/17/21 10:53 Blood Culture - Preliminary Blood No Growth after 120 hours Assessment and Plan Assessment: Assessment and plan: #Infected left leg ulcer with severe sepsis -Patient was found to be hypotensive in the emergency room hypotension improved with IV fluids -Lactic acid 6.1--resolved -Patient was transferred out of ICU -IV fluids resuscitation. -IV vancomycin and cefepime -Wound culture--growing Citrobacter and capsula pneumoniae -Blood cultures ordered 2--negative to date -Vascular surgery cancer surgery on June 20 due to elevated troponin and CHF exacerbation -MRI of the left Leg ruled out osteomalacia and abscess showed evidence of cellulitis and myositis #New-onset A. fib with rapid ventricular response -Resume beta blockers per cardiology -Heparin held until MRI of the brain is done per neurology recommendation #Acute Aphasia and dysarthria seems probable acute CVA. -Status post stroke alert June 22 -No IV TPA per stroke team -Neurology consulted he ordered MRI -IV heparin held per neurology recommendation - During this event per nurse patient had run of A-fib. Likely underlying metabolic encephalopathy and septic encephalopathy #Acute systolic CHF exacerbation -History of diastolic CHF. EF dropped to 402 45% -Resume diuresis per cardiology and nephrology. -Cardiology consulted #NSTEMI #History coronary disease status post stent -Possibly type II secondary to demand ischemia -Heparin and hold until MRI of the brain is done per neurology recommendation -Resume beta blockers -2-D echo showed drop in EF 40-45% with apical anterior, lateral and inferior septal hypokinesis -Heart cath was canceled today since patient had a stroke alert this morning -Cardiology input appreciated #Severe peripheral vascular disease -Vascular surgery consulted #Severe lactic acidosis -Improved IV fluids -Discontinue metformin #Hypotension -Secondary to sepsis -Improved with IV fluids #Acute kidney injury -Worse -Nephrology consulted -Most likely secondary to hypotension and prerenal azotemia possibly ATN -Hold diuretics and antihypertensive medications -Status post IV hydration she is currently on diuretics . 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 #Dyslipidemia -Resume all medications #Obesity BMI 34. #DVT prophylaxis subcutaneous heparin. #Full code
[2021-06-22 20:32] LABS: Glucose,Whole Blood 271 mg/dL (75-99)
[2021-06-22] MEDS: FAMOTIDINE 20 MG TAB PO SCH (21:07)
[2021-06-22] MEDS: HYDROcodone/APAP 5-325MG 1 EACH TAB PO PRN (22:29)
--- NOTE | 2021-06-22 22:29 | P.PN ---
Subjective Progress Note Date: 06/21/21 Principal diagnosis: Left leg wound and cellulitis Patient is 80 year old female with a past medical history significant for chronic nonhealing wound, left lower extremity admitted to the hospital with worsening pain to the left leg wound concerning for cellulitis. On today's evaluation that is 06/21/2021 the patient is afebrile, the patient pain left leg is currently controlled, the patient denies chest pain still complaining of some shortness of breath however denies significant cough or sputum production, patient denies having any abdominal pain and no diarrhea Objective - Vital Signs Vital signs: Vital Signs Temp 97.6 F 06/21/21 08:00 Pulse 92 06/21/21 13:50 Resp 18 06/21/21 12:09 BP 82/51 06/21/21 12:00 Pulse Ox 98 06/21/21 12:00 Intake & Output 06/20/21 06/21/21 06/21/21 17:59 06:59 18:59 Intake Total 403.793 Output Total 700 Balance -296.207 Weight Intake: IV Intake, IV Titration 165.793 Amount Heparin Sod,Pork in 0.45% 165.793 NaCl 25,000 unit In 0.45 % NaCl 1 250ml.bag @ 12 UNITS/KG/HR 9.961 mls/hr IV .Q24H [facility] Rx#: [id number] Oral 238 Output: Urine 700 Other: Voiding Method Indwelling Catheter # Voids - Exam GENERAL DESCRIPTION: An elderly female lying in bed in no distress RESPIRATORY SYSTEM: Unlabored breathing , decreased breath sounds at bases HEART: S1 S2 regular rate and rhythm , ABDOMEN: Soft , no tenderness EXTREMITIES: Left leg wound is currently dressed no drainage on the dressing - Labs CBC & Chem 7: 06/22/21 07:58 06/22/21 07:58 Labs: Abnormal Lab Results - Last 24 Hours (Table) 06/20/21 06/20/21 06/21/21 Range/Units 16:57 19:58 07:10 WBC (3.8-10.6) k/uL RBC (3.80-5.40) m/uL Hgb (11.4-16.0) gm/dL Hct (34.0-46.0) % MCHC (31.0-37.0) g/dL Neutrophils # (1.3-7.7) k/uL APTT (22.0-30.0) sec Sodium (137-145) mmol/L Carbon Dioxide (22-30) mmol/L BUN (7-17) mg/dL Creatinine (0.52-1.04) mg/dL Glucose (74-99) mg/dL POC Glucose (mg/dL) 456 H 441 H 207 H (75-99) mg/dL 06/21/21 06/21/21 06/21/21 Range/Units 11:19 11:19 11:19 WBC 13.4 H (3.8-10.6) k/uL RBC 2.48 L (3.80-5.40) m/uL Hgb 7.4 L (11.4-16.0) gm/dL Hct 24.2 L (34.0-46.0) % MCHC 30.7 L (31.0-37.0) g/dL Neutrophils # 10.1 H (1.3-7.7) k/uL APTT 41.7 H (22.0-30.0) sec Sodium 133 L (137-145) mmol/L Carbon Dioxide 18 L (22-30) mmol/L BUN 25 H (7-17) mg/dL Creatinine 1.18 H (0.52-1.04) mg/dL Glucose 180 H (74-99) mg/dL POC Glucose (mg/dL) (75-99) mg/dL 06/21/21 Range/Units 11:49 WBC (3.8-10.6) k/uL RBC (3.80-5.40) m/uL Hgb (11.4-16.0) gm/dL Hct (34.0-46.0) % MCHC (31.0-37.0) g/dL Neutrophils # (1.3-7.7) k/uL APTT (22.0-30.0) sec Sodium (137-145) mmol/L Carbon Dioxide (22-30) mmol/L BUN (7-17) mg/dL Creatinine (0.52-1.04) mg/dL Glucose (74-99) mg/dL POC Glucose (mg/dL) 191 H (75-99) mg/dL Microbiology - Last 24 Hours (Table) 06/17/21 10:53 Blood Culture - Preliminary Blood No Growth after 96 hours 06/17/21 10:53 Blood Culture - Preliminary Blood No Growth after 96 hours 06/17/21 16:37 Anaerobic Culture - Final Leg - Left Anaerobic Gm Negative Bacilli Assessment and Plan (1) Leg wound, left Current Visit: Yes Status: Acute Code(s): S81.802A - UNSPECIFIED OPEN WOUND, LEFT LOWER LEG, INITIAL ENCOUNTER SNOMED Code(s): 228320809 Plan: 1patient with chronic nonhealing wound to the left lower extremity in this patient presented to hospital with increasing pain swelling redness and concern for cellulitis apparently the patient did have a chronic wound and has been exposed to antibiotic will need to cover for both gram-positive as well as gram- negative pathogen. 2MRI did not show any evidence of Osteomyelitis, patient surgical debridement has been put on hold because of chronic condition 3patient culture has been finalized with Citrobacter and Klebsiella for the patient is covered with cefepime and local wound care to continue as ordered Time with Patient: Less than 30
--- NOTE | 2021-06-22 22:30 | P.PN ---
Subjective Progress Note Date: 06/22/21 Principal diagnosis: Left leg wound and cellulitis Patient is 80 year old female with a past medical history significant for chronic nonhealing wound, left lower extremity admitted to the hospital with worsening pain to the left leg wound concerning for cellulitis. On today's evaluation that is 06/22/2021 the patient remains to be afebrile, the patient denies any worsening pain left leg, the patient denies chest pain still complaining of some shortness of breath however denies significant cough or sputum production, patient denies having any abdominal pain and no diarrhea, patient was noticed to have some neurological symptoms and neurology has been consulted to rule out CVA Objective - Vital Signs Vital signs: Vital Signs Temp 98.6 F 06/22/21 11:02 Pulse 84 06/22/21 11:02 Resp 22 06/22/21 11:02 BP 111/69 06/22/21 11:02 Pulse Ox 97 06/22/21 11:02 Intake & Output 06/21/21 06/22/21 06/22/21 18:59 06:59 18:59 Intake Total 608.000 100.105 572.849 Output Total 1800 1950 Balance -1192.000 -1849.895 572.849 Weight 83.007 kg Intake: IV 10 Invasive Line 6 10 Intake, IV Titration 250.000 100.105 562.849 Amount Cefepime 2 gm In Sodium 100 Chloride 0.9% 100 ml @ 25 mls/hr IVPB Q12HR [facility] Rx #:[id number] Heparin Sod,Pork in 0.45% 250.000 100.105 122.849 NaCl 25,000 unit In 0.45 % NaCl 1 250ml.bag @ 12 UNITS/KG/HR 9.961 mls/hr IV .Q24H [facility] Rx#: [id number] Lactated Ringers 1,000 ml 240 @ 20 mls/hr IV .Q24H [facility] Rx#:[id number] Sodium Ferric Gluconat- 100 Sucrose 125 mg In Sodium Chloride 0.9% 100 ml @ 100 mls/hr IVPB DAILY [facility] Rx#:[id number] Oral 358 Output: Urine 1800 1950 Other: Voiding Method Indwelling Catheter Indwelling Catheter Indwelling Catheter - Exam GENERAL DESCRIPTION: An elderly female lying in bed in no distress RESPIRATORY SYSTEM: Unlabored breathing , decreased breath sounds at bases HEART: S1 S2 regular rate and rhythm , ABDOMEN: Soft , no tenderness EXTREMITIES: Left leg wound is currently dressed no drainage on the dressing - Labs CBC & Chem 7: 06/22/21 07:58 06/22/21 07:58 Labs: Abnormal Lab Results - Last 24 Hours (Table) 06/21/21 06/21/21 06/21/21 Range/Units 16:46 17:31 20:20 WBC (3.8-10.6) k/uL RBC (3.80-5.40) m/uL Hgb (11.4-16.0) gm/dL Hct (34.0-46.0) % Retic Count (0.5-2.0) % APTT 36.6 H (22.0-30.0) sec Sodium (137-145) mmol/L Carbon Dioxide (22-30) mmol/L BUN (7-17) mg/dL Creatinine (0.52-1.04) mg/dL Glucose (74-99) mg/dL POC Glucose (mg/dL) 244 H 267 H (75-99) mg/dL Calcium (8.4-10.2) mg/dL AST (14-36) U/L Troponin I (0.000-0.034) ng/mL Total Protein (6.3-8.2) g/dL Albumin (3.5-5.0) g/dL Vitamin B12 (200.0-944.0) pg/mL 06/22/21 06/22/21 06/22/21 Range/Units 01:58 01:58 01:58 WBC 11.7 H (3.8-10.6) k/uL RBC 2.30 L (3.80-5.40) m/uL Hgb 7.0 L (11.4-16.0) gm/dL Hct 22.1 L (34.0-46.0) % Retic Count (0.5-2.0) % APTT 77.3 H (22.0-30.0) sec Sodium 133 L (137-145) mmol/L Carbon Dioxide 20 L (22-30) mmol/L BUN 24 H (7-17) mg/dL Creatinine 1.26 H (0.52-1.04) mg/dL Glucose 104 H (74-99) mg/dL POC Glucose (mg/dL) (75-99) mg/dL Calcium 8.3 L (8.4-10.2) mg/dL AST 38 H (14-36) U/L Troponin I (0.000-0.034) ng/mL Total Protein 5.6 L (6.3-8.2) g/dL Albumin 2.8 L (3.5-5.0) g/dL Vitamin B12 (200.0-944.0) pg/mL 06/22/21 06/22/21 06/22/21 Range/Units 07:58 07:58 07:58 WBC (3.8-10.6) k/uL RBC 2.33 L (3.80-5.40) m/uL Hgb 7.0 L (11.4-16.0) gm/dL Hct 22.4 L (34.0-46.0) % Retic Count (0.5-2.0) % APTT 61.9 H (22.0-30.0) sec Sodium 134 L (137-145) mmol/L Carbon Dioxide (22-30) mmol/L BUN 22 H (7-17) mg/dL Creatinine 1.36 H (0.52-1.04) mg/dL Glucose 60 L (74-99) mg/dL POC Glucose (mg/dL) (75-99) mg/dL Calcium 8.2 L (8.4-10.2) mg/dL AST (14-36) U/L Troponin I (0.000-0.034) ng/mL Total Protein 5.5 L (6.3-8.2) g/dL Albumin 2.6 L (3.5-5.0) g/dL Vitamin B12 (200.0-944.0) pg/mL 06/22/21 06/22/21 06/22/21 Range/Units 07:58 10:02 10:02 WBC (3.8-10.6) k/uL RBC (3.80-5.40) m/uL Hgb (11.4-16.0) gm/dL Hct (34.0-46.0) % Retic Count 4.4 H (0.5-2.0) % APTT (22.0-30.0) sec Sodium (137-145) mmol/L Carbon Dioxide (22-30) mmol/L BUN (7-17) mg/dL Creatinine (0.52-1.04) mg/dL Glucose (74-99) mg/dL POC Glucose (mg/dL) (75-99) mg/dL Calcium (8.4-10.2) mg/dL AST (14-36) U/L Troponin I 1.840 H* (0.000-0.034) ng/mL Total Protein (6.3-8.2) g/dL Albumin (3.5-5.0) g/dL Vitamin B12 >2000.0 H (200.0-944.0) pg/mL 06/22/21 Range/Units 11:55 WBC (3.8-10.6) k/uL RBC (3.80-5.40) m/uL Hgb (11.4-16.0) gm/dL Hct (34.0-46.0) % Retic Count (0.5-2.0) % APTT (22.0-30.0) sec Sodium (137-145) mmol/L Carbon Dioxide (22-30) mmol/L BUN (7-17) mg/dL Creatinine (0.52-1.04) mg/dL Glucose (74-99) mg/dL POC Glucose (mg/dL) 115 H (75-99) mg/dL Calcium (8.4-10.2) mg/dL AST (14-36) U/L Troponin I (0.000-0.034) ng/mL Total Protein (6.3-8.2) g/dL Albumin (3.5-5.0) g/dL Vitamin B12 (200.0-944.0) pg/mL Microbiology - Last 24 Hours (Table) 06/17/21 10:53 Blood Culture - Preliminary Blood No Growth after 120 hours 06/17/21 10:53 Blood Culture - Preliminary Blood No Growth after 120 hours Assessment and Plan (1) Leg wound, left Current Visit: Yes Status: Acute Code(s): S81.802A - UNSPECIFIED OPEN WOUND, LEFT LOWER LEG, INITIAL ENCOUNTER SNOMED Code(s): 181598385 Plan: 1patient with chronic nonhealing wound to the left lower extremity in this patient presented to hospital with increasing pain swelling redness and concern for cellulitis apparently the patient did have a chronic wound and has been exposed to antibiotic will need to cover for both gram-positive as well as gram- negative pathogen. 2MRI did not show any evidence of Osteomyelitis, patient surgical debridement has been put on hold because of cardiac condition 3patient left leg culture has been finalized with Citrobacter and Klebsiella, patient to continue with cefepime and monitor her clinical course closely Time with Patient: Less than 30
[2021-06-22] MEDS ORDERED: MELATONIN 5 MG TABLET PO SCH (23:00)
[2021-06-22] MEDS: HEPARIN SODIUM,PORCINE/PF 5,000 UNIT/0.5 ML SYRINGE SQ SCH (23:16)
[2021-06-23] MEDS: ACETAMINOPHEN TAB 500 MG TAB PO PRN ×2 (03:55→15:47)
[2021-06-23 07:00] LABS: Glucose,Whole Blood 97 mg/dL (75-99)
[2021-06-23] MEDS: INSULIN DETEMIR (LEVEMIR) 100 UNIT/ML SYR SQ SCH ×2 (07:00→20:35)
[2021-06-23] MEDS: INSULIN ASPART (NovoLOG) 100 UNIT/ML VIAL SQ SCH ×4 (07:00→20:35)
[2021-06-23] MEDS: HYDROcodone/APAP 5-325MG 1 EACH TAB PO PRN ×2 (07:04→21:05)
[2021-06-23] MEDS: PANTOPRAZOLE 40 MG TABLET PO SCH (07:04)
[2021-06-23 07:07] LABS: HCT 23.4 % (34.0-46.0); HGB 7.1 gm/dL (11.4-16.0); Hypochromasia Moderate; MCH 29.8 pg (25.0-35.0); MCHC 30.3 g/dL (31.0-37.0); MCV 98.4 fL (80.0-100.0); Mean Platelet Volume 8.7; Platelet Count 449 k/uL (150-450); RBC 2.38 m/uL (3.80-5.40); RDW 14.6 % (11.5-15.5); WBC 9.5 k/uL (3.8-10.6)
[2021-06-23 07:28] LABS: ALT 14 U/L (4-34); AST 27 U/L (14-36); African American GFR (CKD) 41 (>60 ml/min/1.73 sqM); Albumin 2.8 g/dL (3.5-5.0); Alkaline Phosphatase 58 U/L (38-126); Anion Gap 3 mmol/L; Blood Urea Nitrogen 25 mg/dL (7-17); Calcium 8.6 mg/dL (8.4-10.2); Carbon Dioxide 24 mmol/L (22-30); Chloride 107 mmol/L (98-107); Glucose 82 mg/dL (74-99); Magnesium 2.2 mg/dL (1.6-2.3); Non-African American GFR(CKD) 35 (>60 ml/min/1.73 sqM); Potassium 4.7 mmol/L (3.5-5.1); Sodium 134 mmol/L (137-145); Total Bilirubin 0.4 mg/dL (0.2-1.3); Total Protein 5.7 g/dL (6.3-8.2)
--- NOTE | 2021-06-23 09:38 | P.CONS ---
History of Present Illness - Reason for Consult Consult date: 06/22/21 anemia Requesting physician: Hernan Maciel - Chief Complaint non-healing leg ulcer - History of Present Illness Ms. Barnes is a pleasant 80yo female with a PMH including HTN, hyperlipidemia, DMII, GERD, OA, PVD, diabetic peripheral neuropathy admitted for severe left leg pain with infected ulcer, this has been being treated since 01/2021. She had low blood pressure, lactic acid of 6. ID following for suspect sepsis. Vascular consulted for non-healing wound, Pulm took care of pt in ICU. Hematology have been asked to see re: normocytic, normochronic anemia. On chart review she has been anemic since at least 03/31. Pt noted to have CKD since 06/28, and chronic leg wound since 01/29. She is currently admitted for non-healing leg wound. She denies a Hx of anemia but has been on oral for about a year per her. She denies overt bleeding, nausea, vomiting, GERD, wt. loss, acute changes in bowel or bladder, hematuria, hematochezia or melena. She is c/o moderate LLE pain at time of exam. Review of Systems 10 point ROS is neg except as stated in HPI Past Medical History Past Medical History: Diabetes Mellitus, GERD/Reflux, Hypertension, Osteoarthritis (OA), Skin Disorder, Syncope, Vascular Disorder Additional Past Medical History / Comment(s): Arthritis in lower back. Poor circulation in legs, wound left lower leg calf area w/ pain, neuropathy in feet, goes to [facility]. Edema bilateral lower extremities, wears TEDS on right leg. Shortness of breath.shortness of breath History of Any Multi-Drug Resistant Organisms: None Reported Past Surgical History: Appendectomy, Breast Surgery, Ear Surgery, Heart Catheterization, Heart Catheterization With Stent, Hysterectomy Additional Past Surgical History / Comment(s): Varicose vein stripping left leg, left ear myringotomy/tubes, colonoscopy, left breast biopsy, bilateral cataracts, left leg wound debridement. Past Anesthesia/Blood Transfusion Reactions: No Reported Reaction Date of Last Stent Placement:: 11/26 Past Psychological History: No Psychological Hx Reported Smoking Status: Former smoker Past Alcohol Use History: Rare Past Drug Use History: None Reported - Past Family History Father Family Medical History: Cancer Additional Family Medical History / Comment(s): COLON CANCER. Mother Family Medical History: Diabetes Mellitus, Renal Disease Additional Family Medical History / Comment(s): RENAL FAILURE. Brother(s) Family Medical History: Cancer Additional Family Medical History / Comment(s): 3 brothers - 2 had stomach cancer, 1 had esophageal cancer. Medications and Allergies Home Medications Medication Instructions Recorded Confirmed Type Insulin Glargine [Lantus] 8 unit SQ HS 04/26/14 06/17/21 History metFORMIN HCL [Glucophage] 500 mg PO AC-BRKFST 04/26/14 06/17/21 History Aspirin EC [Ecotrin Low Dose] 81 mg PO DAILY 05/08/18 06/17/21 History INSULIN ASPART (NovoLOG) [NovoLOG 5 - 12 unit SQ AC-TID 05/08/18 06/17/21 History (formulary)] Pantoprazole Sodium 40 mg PO DAILY 05/08/18 06/17/21 History gemfibroziL [Lopid] 600 mg PO AC-BID 05/08/18 06/17/21 History Cholecalciferol [Vitamin D3 (25 2,000 unit PO DAILY 06/08/19 06/17/21 History Mcg = 1000 Iu)] Cyanocobalamin (Vitamin B-12) 2,000 mcg PO DAILY 06/08/19 06/17/21 History [Vitamin B-12] Famotidine [Pepcid] 20 mg PO HS 06/08/19 06/17/21 History Ferrous Sulfate [Feosol] 325 mg PO DAILY 06/08/19 06/17/21 History Flaxseed Oil 1,000 mg PO BID 06/08/19 06/17/21 History L.acidoph,Paracasei, B.lactis 1 cap PO DAILY 06/08/19 06/17/21 History [Probiotic] Acetaminophen [Tylenol Extra 1,500 mg PO Q6H PRN 03/30/21 06/17/21 History Strength] Ascorbic Acid [Vitamin C] 1,000 mg PO DAILY 03/30/21 06/17/21 History Furosemide [Lasix] 40 mg PO DAILY 03/30/21 06/17/21 History hydroCHLOROthiazide [Hydrodiuril] 25 mg PO DAILY 03/30/21 06/17/21 History ALPRAZolam [Xanax] 0.25 mg PO DAILY PRN 06/17/21 06/17/21 History Canagliflozin [Invokana] 100 mg PO DAILY 06/17/21 06/17/21 History Carvedilol [Coreg] 6.25 mg PO BID 06/17/21 06/17/21 History Fluticasone Nasal [place] [Flonase 1 spray EA NOSTRIL DAILY PRN 06/17/21 06/17/21 History Nasal [place]] Losartan Potassium [Cozaar] 25 mg PO DAILY 06/17/21 06/17/21 History Pregabalin [Lyrica] 75 mg PO BID 06/17/21 06/17/21 History Allergies Allergy/AdvReac Type Severity Reaction Status Date / Time bacitracin Allergy Unknown Verified 06/17/21 10:08 [From Neosporin ([id number])] bacitracin zinc Allergy Unknown Verified 06/17/21 10:08 [From Neosporin ([id number])] latex Allergy Rash/Hives Verified 06/17/21 10:08 neomycin sulfate Allergy Unknown Verified 06/17/21 10:08 [From Neosporin ([id number])] polymyxin B Allergy Unknown Verified 06/17/21 10:08 [From Neosporin ([id number])] Penicillins AdvReac Rash & Verified 06/17/21 10:08 Fatigue Sulfa (Sulfonamide AdvReac Rash & Verified 06/17/21 10:08 Antibiotics) Fatigue Physical Exam Vitals: Vital Signs Temp Pulse Pulse Pulse Resp BP Pulse Ox 06/22/21 11:02 98.6 F 84 22 111/69 97 06/22/21 08:10 20 06/22/21 08:08 97.1 F L 133 H 20 125/62 96 06/22/21 06:56 98.3 F 93/49 06/22/21 03:52 92 06/22/21 03:43 98.0 F 86 18 102/51 96 06/22/21 03:39 92 06/22/21 01:42 100 18 06/21/21 23:42 99.6 F 100 18 101/63 97 06/21/21 23:37 68 18 06/21/21 20:00 98 F 68 18 100/55 99 06/21/21 16:00 91 18 135/74 99 06/21/21 15:31 92 18 06/21/21 15:22 90 18 Intake and Output 06/21/21 06/22/21 06/22/21 22:59 06:59 14:59 Intake Total 204.207 100.105 132.849 Output Total 2200 850 Balance -1292.793 -749.895 132.849 Intake: IV 10 Invasive Line 6 10 Intake, IV Titration 84.207 100.105 122.849 Amount Heparin Sod,Pork in 0.45% 84.207 100.105 122.849 NaCl 25,000 unit In 0.45 % NaCl 1 250ml.bag @ 12 UNITS/KG/HR 9.961 mls/hr IV .Q24H [facility] Rx#: [id number] Oral 120 Output: Urine 2200 850 Other: Voiding Method Indwelling Catheter Indwelling Catheter Indwelling Catheter - Constitutional General appearance: average body habitus, disheveled, mild distress - EENT Eyes: anicteric sclerae, EOMI ENT: hearing grossly normal, normal oropharynx - Neck Neck: no lymphadenopathy - Respiratory Respiratory: bilateral: CTA - Cardiovascular Rhythm: regular Heart sounds: normal: S1, S2 Abnormal Heart Sounds: no systolic murmur, no diastolic murmur, no rub, no S3 Gallop, no S4 Gallop, no click, no other leg Peripheral Edema: bilateral: None - Gastrointestinal General gastrointestinal: no absent bowel sounds, no decreased bowel sounds, no distended, no hepatomegaly, no hyperactive bowel sounds, normal bowel sounds, no organomegaly, no rigid, no scaphoid, soft, no splenomegaly, no tenderness, no umbilical hernia, no ventral hernia - Integumentary Integumentary: normal - Neurologic Neurologic: CNII-XII intact - Musculoskeletal Musculoskeletal: generalized weakness, strength equal bilaterally - Psychiatric mild distress from pain in the leg Psychiatric: A&O x's 3, intact judgment & insight Results CBC & Chem 7: 06/22/21 07:58 06/22/21 07:58 Labs: Abnormal Lab Results - Last 24 Hours (Table) 06/21/21 06/21/21 06/21/21 Range/Units 16:46 17:31 20:20 WBC (3.8-10.6) k/uL RBC (3.80-5.40) m/uL Hgb (11.4-16.0) gm/dL Hct (34.0-46.0) % Retic Count (0.5-2.0) % APTT 36.6 H (22.0-30.0) sec Sodium (137-145) mmol/L Carbon Dioxide (22-30) mmol/L BUN (7-17) mg/dL Creatinine (0.52-1.04) mg/dL Glucose (74-99) mg/dL POC Glucose (mg/dL) 244 H 267 H (75-99) mg/dL Calcium (8.4-10.2) mg/dL AST (14-36) U/L Troponin I (0.000-0.034) ng/mL Total Protein (6.3-8.2) g/dL Albumin (3.5-5.0) g/dL 06/22/21 06/22/21 06/22/21 Range/Units 01:58 01:58 01:58 WBC 11.7 H (3.8-10.6) k/uL RBC 2.30 L (3.80-5.40) m/uL Hgb 7.0 L (11.4-16.0) gm/dL Hct 22.1 L (34.0-46.0) % Retic Count (0.5-2.0) % APTT 77.3 H (22.0-30.0) sec Sodium 133 L (137-145) mmol/L Carbon Dioxide 20 L (22-30) mmol/L BUN 24 H (7-17) mg/dL Creatinine 1.26 H (0.52-1.04) mg/dL Glucose 104 H (74-99) mg/dL POC Glucose (mg/dL) (75-99) mg/dL Calcium 8.3 L (8.4-10.2) mg/dL AST 38 H (14-36) U/L Troponin I (0.000-0.034) ng/mL Total Protein 5.6 L (6.3-8.2) g/dL Albumin 2.8 L (3.5-5.0) g/dL 06/22/21 06/22/21 06/22/21 Range/Units 07:58 07:58 07:58 WBC (3.8-10.6) k/uL RBC 2.33 L (3.80-5.40) m/uL Hgb 7.0 L (11.4-16.0) gm/dL Hct 22.4 L (34.0-46.0) % Retic Count (0.5-2.0) % APTT 61.9 H (22.0-30.0) sec Sodium 134 L (137-145) mmol/L Carbon Dioxide (22-30) mmol/L BUN 22 H (7-17) mg/dL Creatinine 1.36 H (0.52-1.04) mg/dL Glucose 60 L (74-99) mg/dL POC Glucose (mg/dL) (75-99) mg/dL Calcium 8.2 L (8.4-10.2) mg/dL AST (14-36) U/L Troponin I (0.000-0.034) ng/mL Total Protein 5.5 L (6.3-8.2) g/dL Albumin 2.6 L (3.5-5.0) g/dL 06/22/21 06/22/21 06/22/21 Range/Units 07:58 10:02 11:55 WBC (3.8-10.6) k/uL RBC (3.80-5.40) m/uL Hgb (11.4-16.0) gm/dL Hct (34.0-46.0) % Retic Count 4.4 H (0.5-2.0) % APTT (22.0-30.0) sec Sodium (137-145) mmol/L Carbon Dioxide (22-30) mmol/L BUN (7-17) mg/dL Creatinine (0.52-1.04) mg/dL Glucose (74-99) mg/dL POC Glucose (mg/dL) 115 H (75-99) mg/dL Calcium (8.4-10.2) mg/dL AST (14-36) U/L Troponin I 1.840 H* (0.000-0.034) ng/mL Total Protein (6.3-8.2) g/dL Albumin (3.5-5.0) g/dL Microbiology - Last 24 Hours (Table) 06/17/21 10:53 Blood Culture - Preliminary Blood No Growth after 120 hours 06/17/21 10:53 Blood Culture - Preliminary Blood No Growth after 96 hours Comments: Leg MRI report reviewed Chest x-ray: report reviewed Assessment and Plan (1) Normocytic normochromic anemia Narrative/Plan: Anemia started to present 03/31, has been persistent and progressive. She has had chronic infection, been on half-way abx and has CKD, all of which can contribute to anemia. Saturation is low. Nephrology has ordered iron. Other labs ordered to complete anemia work up. Hgb has not been so low as to need transfusion just yet but, would recommend that her CBC be monitored. Further recommendations to follow Current Visit: Yes Status: Acute Priority: High Code(s): D64.9 - ANEMIA, UNSPECIFIED SNOMED Code(s): 80602495 Plan: attests: I have seen and examined pt, performed H&P, developed impression and plan of care, discussed with dictator. I agree with dictation, documented a s a scribe.
--- NOTE | 2021-06-23 09:43 | P.PN ---
Subjective Patient is seen in follow-up for acute kidney injury. Renal function fairly stable. Currently resting in bed. Blood pressure controlled. Has been receiving IV Lasix. Nonoliguric. Has a Triana catheter. Oral intake fair. Vital signs are stable. General: Awake. HEENT: Nasal cannula. LUNGS: Breath sounds decreased. HEART: Regular rhythm. ABDOMEN: Soft, no distention. EXTREMITITES: Trace edema. Objective - Vital Signs Vital signs: Vital Signs Temp 98.5 F 06/23/21 04:00 Pulse 96 06/23/21 04:00 Resp 18 06/23/21 04:00 BP 124/78 06/23/21 04:00 Pulse Ox 98 06/23/21 04:00 Intake & Output 06/22/21 06/23/21 06/23/21 18:59 06:59 18:59 Intake Total 778.733 50 Output Total 1650 550 Balance -871.267 50 -550 Weight 83.007 kg Intake: IV 10 Invasive Line 6 10 Intake, IV Titration 648.733 Amount Cefepime 2 gm In Sodium 100 Chloride 0.9% 100 ml @ 25 mls/hr IVPB Q12HR [facility] Rx #:[id number] Heparin Sod,Pork in 0.45% 208.733 NaCl 25,000 unit In 0.45 % NaCl 1 250ml.bag @ 12 UNITS/KG/HR 9.961 mls/hr IV .Q24H [facility] Rx#: [id number] Lactated Ringers 1,000 ml 240 @ 20 mls/hr IV .Q24H [facility] Rx#:[id number] Sodium Ferric Gluconat- 100 Sucrose 125 mg In Sodium Chloride 0.9% 100 ml @ 100 mls/hr IVPB DAILY [facility] Rx#:[id number] Oral 120 50 Output: Urine 1650 550 Uretheral (Triana) 1650 Other: Voiding Method Indwelling Catheter Indwelling Catheter - Labs CBC & Chem 7: 06/23/21 06:24 06/23/21 06:24 Labs: Abnormal Lab Results - Last 24 Hours (Table) 06/22/21 06/22/21 06/22/21 Range/Units 07:58 10:02 10:02 RBC (3.80-5.40) m/uL Hgb (11.4-16.0) gm/dL Hct (34.0-46.0) % MCHC (31.0-37.0) g/dL Retic Count 4.4 H (0.5-2.0) % APTT 61.9 H (22.0-30.0) sec Sodium (137-145) mmol/L BUN (7-17) mg/dL Creatinine (0.52-1.04) mg/dL POC Glucose (mg/dL) (75-99) mg/dL Total Protein (6.3-8.2) g/dL Albumin (3.5-5.0) g/dL Vitamin B12 >2000.0 H (200.0-944.0) pg/mL 06/22/21 06/22/21 06/22/21 Range/Units 11:55 17:03 20:31 RBC (3.80-5.40) m/uL Hgb (11.4-16.0) gm/dL Hct (34.0-46.0) % MCHC (31.0-37.0) g/dL Retic Count (0.5-2.0) % APTT (22.0-30.0) sec Sodium (137-145) mmol/L BUN (7-17) mg/dL Creatinine (0.52-1.04) mg/dL POC Glucose (mg/dL) 115 H 328 H 271 H (75-99) mg/dL Total Protein (6.3-8.2) g/dL Albumin (3.5-5.0) g/dL Vitamin B12 (200.0-944.0) pg/mL 06/23/21 06/23/21 Range/Units 06:24 06:24 RBC 2.38 L (3.80-5.40) m/uL Hgb 7.1 L (11.4-16.0) gm/dL Hct 23.4 L (34.0-46.0) % MCHC 30.3 L (31.0-37.0) g/dL Retic Count (0.5-2.0) % APTT (22.0-30.0) sec Sodium 134 L (137-145) mmol/L BUN 25 H (7-17) mg/dL Creatinine 1.40 H (0.52-1.04) mg/dL POC Glucose (mg/dL) (75-99) mg/dL Total Protein 5.7 L (6.3-8.2) g/dL Albumin 2.8 L (3.5-5.0) g/dL Vitamin B12 (200.0-944.0) pg/mL Microbiology - Last 24 Hours (Table) 06/17/21 10:53 Blood Culture - Preliminary Blood No Growth after 120 hours 06/17/21 10:53 Blood Culture - Preliminary Blood No Growth after 120 hours Assessment and Plan Plan: Assessment: 1. Acute kidney injury mostly prerenal secondary to cardiorenal syndrome and hypotension. Cortisol level. UA fairly benign. No hydronephrosis noted on kidney ultrasound. Creatinine fairly stable at 1.4 today. Patient received IV contrast on 06/22/2021 for CTA. 2. Acute on chronic systolic CHF with ejection fraction of 40-45%. 3. Volume overload. Improved with diuresis. 4. Metabolic acidosis secondary to acute kidney injury and lactic acidosis. Improved. 5. Anemia. Iron deficiency noted. Receiving IV iron. Hematology following. 6. Rule out chronic kidney disease. Creatinine in June 2019 was 1.23 and 1.6 as of 10/22/2020. It was as low as 1.05 this admission. 7. Left lower extremity wound/cellulitis. On antibiotics. 8. Diabetes mellitus. 9. History of coronary disease status post cardiac stenting in the past. 10. Questionable CVA. Neurology following. MRI pending. Plan: Hold Lasix today. Check chest x-ray. Avoid nephrotoxins. Continue to monitor renal function and urine output. Monitor for contrast-induced acute kidney injury.
[2021-06-23] MEDS: FERROUS SULFATE 325 MG TAB PO SCH (10:10)
[2021-06-23] MEDS: CHOLECALCIFEROL 25 MCG (1000 IU) TABLET PO SCH (10:11)
[2021-06-23] MEDS: FENOFIBRATE 160 MG TAB PO SCH (10:11)
[2021-06-23] MEDS: ASPIRIN 81 MG PO SCH (10:11)
[2021-06-23] MEDS: CYANOCOBALAMIN 500 MCG TAB PO SCH (10:11)
[2021-06-23] MEDS: METOPROLOL TARTRATE 12.5 MG TAB PO SCH ×2 (10:11→20:34)
[2021-06-23] MEDS: PREGABALIN 75 MG CAP PO SCH ×2 (10:11→20:34)
[2021-06-23] MEDS: DOCUSATE 100 MG CAP PO SCH ×2 (10:11→20:34)
[2021-06-23] MEDS: ASCORBIC ACID 500 MG TAB PO SCH (10:11)
[2021-06-23] MEDS: SODIUM FERRIC GLUCONAT-SUCROSE 125 MG in SODIUM CHLORIDE 0.9% 100 ML IVPB SCH (10:12)
[2021-06-23] MEDS: CEFEPIME 2 GM in SODIUM CHLORIDE 0.9% 100 ML IVPB SCH ×2 (10:12→20:36)
[2021-06-23 11:38] LABS: Chol/HDL Ratio 2.99 Ratio
[2021-06-23 12:06] LABS: Glucose,Whole Blood 167 mg/dL (75-99)
--- NOTE | 2021-06-23 12:20 | P.PN ---
Subjective Progress Note Date: 06/23/21 The patient is seen at bedside and states she is doing much better today compared to yesterday. She denies of any focal weakness, numbness, visual disturbance. She continues to have pain over the left lower extremity where she has wound at. Objective - Vital Signs Vital signs: Vital Signs Temp 97.3 F L 06/23/21 08:00 Pulse 73 06/23/21 08:00 Resp 18 06/23/21 08:00 BP 118/63 06/23/21 08:00 Pulse Ox 96 06/23/21 08:00 Intake & Output 06/22/21 06/23/21 06/23/21 18:59 06:59 18:59 Intake Total 778.733 50 Output Total 1650 550 Balance -871.267 50 -550 Weight 83.007 kg Intake: IV 10 Invasive Line 6 10 Intake, IV Titration 648.733 Amount Cefepime 2 gm In Sodium 100 Chloride 0.9% 100 ml @ 25 mls/hr IVPB Q12HR [facility] Rx #:[id number] Heparin Sod,Pork in 0.45% 208.733 NaCl 25,000 unit In 0.45 % NaCl 1 250ml.bag @ 12 UNITS/KG/HR 9.961 mls/hr IV .Q24H [facility] Rx#: [id number] Lactated Ringers 1,000 ml 240 @ 20 mls/hr IV .Q24H [facility] Rx#:[id number] Sodium Ferric Gluconat- 100 Sucrose 125 mg In Sodium Chloride 0.9% 100 ml @ 100 mls/hr IVPB DAILY [facility] Rx#:[id number] Oral 120 50 Output: Urine 1650 550 Uretheral (Triana) 1650 Other: Voiding Method Indwelling Catheter Indwelling Catheter - Exam GENERAL: The patient is lying in bed and is not in acute distress. NEUROLOGICAL: Higher mental function: The patient is awake, alert, oriented to self, place and time. Patient is following commands. No aphasia and no neglect. Cranial nerves: The pupils are round, equal and reactive to light and accommodation. Visual acuña are full to confrontation throughout. Extraocular movement is intact no nystagmus is noted. Facial sensation is normal to touch throughout. The facial strength is normal throughout. Tongue is midline and moved [id number] without any difficulty. No dysarthria is noted. Shoulder shrug is normal bilaterally. Motor: The strength is limited over the left lower extremity because wound and has antigravity. Otherwise 5 over 5 throughout. Normal tone and bulk. Cerebellum: Normal finger to nose bilaterally. Sensation: Sensation is normal to touch throughout. WORK-UP: Lipid panel as triglyceride of 109, cholesterol 129, LDL 64 and HDL 43. TSH is 1.650. Vitamin B12 is 1305. Serum folate is 8.90 Hemoglobin A1c is 8.5. Urinalysis negative for urinary tract infection 2-D echo was reported as left ventricular size is normal. Mild concentric left ventricle hypertrophy. Ejection fraction of 40-45%. Apical left ventricle wall motion is hypokinetic at different regions. Left atrium is mildly dilated. Mil d to moderate tricuspid regurgitation. Moderate pulmonary hypertension. CT of the head was done which is reported as age-related atrophic and chronic small vessel ischemic change without acute intracranial process seen at this time. I personally reviewed the CT of the head there is no acute subacute ischemia there is no truncal normal hemorrhage. Patient has generalized atrophy appropriate for her age. CT angiography of the head and neck is reported that the neck has moderate proximal left ICA stenosis about 50% and mild on the right. Mild to moderate bilateral pleural effusion. If you septal lines suggest pulmonary vascular congestion. While the CT angiography of the head is reported as markedly the diminutive probably severely stenotic P1 segment left IAIN. Limited v visualization to nonvisualization of P2 segment and more distal left VP PRODUCTION could reflect sequela of severe stenosis or occlusion. Possible tiny 2 mm saccular aneurysm projecting anteriorly from the left VP PRODUCTION at the expected takeoff of the posture from indicating artery. Moderate to severe irregular alpha sclerotic stenosis throughout the left carotid siphons including the cavernous and supraclinoid portions. Moderate irregular of his chronic stenosis throughout the right carotid siphons. Moderate focal stenosis midsegment of the basilar artery. Additional moderate focal stenosis a 3 segment left IAIN. - Labs CBC & Chem 7: 06/23/21 06:24 06/23/21 06:24 Labs: Abnormal Lab Results - Last 24 Hours (Table) 06/22/21 06/22/21 06/22/21 Range/Units 10:02 17:03 20:31 RBC (3.80-5.40) m/uL Hgb (11.4-16.0) gm/dL Hct (34.0-46.0) % MCHC (31.0-37.0) g/dL Sodium (137-145) mmol/L BUN (7-17) mg/dL Creatinine (0.52-1.04) mg/dL POC Glucose (mg/dL) 328 H 271 H (75-99) mg/dL Total Protein (6.3-8.2) g/dL Albumin (3.5-5.0) g/dL Vitamin B12 >2000.0 H (200.0-944.0) pg/mL 06/23/21 06/23/21 06/23/21 Range/Units 06:24 06:24 12:05 RBC 2.38 L (3.80-5.40) m/uL Hgb 7.1 L (11.4-16.0) gm/dL Hct 23.4 L (34.0-46.0) % MCHC 30.3 L (31.0-37.0) g/dL Sodium 134 L (137-145) mmol/L BUN 25 H (7-17) mg/dL Creatinine 1.40 H (0.52-1.04) mg/dL POC Glucose (mg/dL) 167 H (75-99) mg/dL Total Protein 5.7 L (6.3-8.2) g/dL Albumin 2.8 L (3.5-5.0) g/dL Vitamin B12 (200.0-944.0) pg/mL Microbiology - Last 24 Hours (Table) 06/17/21 10:53 Blood Culture - Preliminary Blood No Growth after 120 hours 06/17/21 10:53 Blood Culture - Preliminary Blood No Growth after 120 hours Assessment and Plan Assessment: Probable TIA of Aphasia and dysarthria especiall During this event per nurse patient had run of A-fib. Cannot rule out only due to metabolic and septic encephalopathy---today is drastically better. Metabolic encephalopathy and septic encephalopathy---resolved New onset paroxysmal A-fib Intracranial atherosclerosis NSTEMI Episode of hypoglyecemia (as low as 60) Episodes of hypotensive during this admission Acute kidney insufficiency Left lower extremity ulcer and felt had sepsis. Brittle Diabetes Uncontrolled DM (HbA1c 8.5) Hypertension and during this admission has episodes of hypotensive episodes. Sevee peripheral vascular disease History of CAD s/p stent Plan: I ordered MRI of the brain without and is pending. Patient is on aspirin 81 mg daily. Heparin has been held Recommend Lipitor 80 mg daily at bedtime daily. Every 4 neuro checks Consulted PT, OT and WAIST CUTTER Continue cardiac monitoring Cardiology is on board ID team is on board Vascular surgery team is on board Please avoid any hypotensive and hypoglycemic episode will defer the management to the primary team We'll defer the rest of the medical management to the primary team For DVT prophylaxis the patient is on subcu heparin 5000 every 8 hours. The plan was discussed with the patient and her nurse. update: MR the brain is reported as no MRI evidence of recent infarct. Mild to moderate diffuse cervical atrophy and moderate chronic small vessel ischemic change with interval degenerative progression from 2012. I personally reviewed the MRI and there is no acute subacute ischemic stroke. From neurological perspective patient is clear to start anticoagulation. She needs to follow-up with a neurologist as an outpatient. There is no further neurological workup. Please notify neurology if any further concerns. Raji Comer M.D. Neuro-hospital Time with Patient: Less than 30
--- NOTE | 2021-06-23 13:20 | P.PN ---
Subjective Progress Note Date: 06/23/21 Patient was seen today as a follow-up. She is sitting up in the bed side recliner. She is much more alert and oriented today. Her speech is fluent, she answers questions appropriately. She states the pain in her left leg has improved. She is awaiting MRI of the brain. " Stroke was called on her yes terday so she had a CT angiogram of the head and neck that reported approximately 25% proximal ICA narrowing of the right and 50% stenosis of the left ICA. She has been afebrile. Her wound culture came back positive for citrobacter amalonaticus, klebiella pneumoniae. She is being covered with cef epime. Objective - Vital Signs Vital signs: Vital Signs Temp 97.3 F L 06/23/21 08:00 Pulse 73 06/23/21 08:00 Resp 18 06/23/21 08:00 BP 118/63 06/23/21 08:00 Pulse Ox 96 06/23/21 08:00 Intake & Output 06/22/21 06/23/21 06/23/21 18:59 06:59 18:59 Intake Total 778.733 50 Output Total 1650 550 Balance -871.267 50 -550 Weight 83.007 kg Intake: IV 10 Invasive Line 6 10 Intake, IV Titration 648.733 Amount Cefepime 2 gm In Sodium 100 Chloride 0.9% 100 ml @ 25 mls/hr IVPB Q12HR [facility] Rx #:[id number] Heparin Sod,Pork in 0.45% 208.733 NaCl 25,000 unit In 0.45 % NaCl 1 250ml.bag @ 12 UNITS/KG/HR 9.961 mls/hr IV .Q24H [facility] Rx#: [id number] Lactated Ringers 1,000 ml 240 @ 20 mls/hr IV .Q24H [facility] Rx#:[id number] Sodium Ferric Gluconat- 100 Sucrose 125 mg In Sodium Chloride 0.9% 100 ml @ 100 mls/hr IVPB DAILY [facility] Rx#:[id number] Oral 120 50 Output: Urine 1650 550 Uretheral (Trinaa) 1650 Other: Voiding Method Indwelling Catheter Indwelling Catheter - Exam General appearance: The patient is alert, oriented, appears in no acute distress. HET: Head is normocephalic and atraumatic. Neck: Supple. Extremities: Bilateral lower extremities warm to the touch. Bilateral lower extremity edema. Left lower extremity with dressing clean dry and intact. Nonpalpable DP or PT pulses. Monophasic DP signal. Neurological: No focal deficits. Strength and sensation are grossly intact. - Labs CBC & Chem 7: 06/23/21 06:24 06/23/21 06:24 Labs: Abnormal Lab Results - Last 24 Hours (Table) 06/22/21 06/22/21 06/22/21 Range/Units 10:02 10:02 11:55 RBC (3.80-5.40) m/uL Hgb (11.4-16.0) gm/dL Hct (34.0-46.0) % MCHC (31.0-37.0) g/dL Retic Count 4.4 H (0.5-2.0) % Sodium (137-145) mmol/L BUN (7-17) mg/dL Creatinine (0.52-1.04) mg/dL POC Glucose (mg/dL) 115 H (75-99) mg/dL Total Protein (6.3-8.2) g/dL Albumin (3.5-5.0) g/dL Vitamin B12 >2000.0 H (200.0-944.0) pg/mL 06/22/21 06/22/21 06/23/21 Range/Units 17:03 20:31 06:24 RBC (3.80-5.40) m/uL Hgb (11.4-16.0) gm/dL Hct (34.0-46.0) % MCHC (31.0-37.0) g/dL Retic Count (0.5-2.0) % Sodium 134 L (137-145) mmol/L BUN 25 H (7-17) mg/dL Creatinine 1.40 H (0.52-1.04) mg/dL POC Glucose (mg/dL) 328 H 271 H (75-99) mg/dL Total Protein 5.7 L (6.3-8.2) g/dL Albumin 2.8 L (3.5-5.0) g/dL Vitamin B12 (200.0-944.0) pg/mL 06/23/21 Range/Units 06:24 RBC 2.38 L (3.80-5.40) m/uL Hgb 7.1 L (11.4-16.0) gm/dL Hct 23.4 L (34.0-46.0) % MCHC 30.3 L (31.0-37.0) g/dL Retic Count (0.5-2.0) % Sodium (137-145) mmol/L BUN (7-17) mg/dL Creatinine (0.52-1.04) mg/dL POC Glucose (mg/dL) (75-99) mg/dL Total Protein (6.3-8.2) g/dL Albumin (3.5-5.0) g/dL Vitamin B12 (200.0-944.0) pg/mL Microbiology - Last 24 Hours (Table) 06/17/21 10:53 Blood Culture - Preliminary Blood No Growth after 120 hours 06/17/21 10:53 Blood Culture - Preliminary Blood No Growth after 120 hours Assessment and Plan Assessment: 1. Nonhealing left lower extremity wound 2. Altered mental status changes, likely TIA 3. Elevated troponins 4. Atrial fibrillation 5. Right ICA stenosis 25%, 50% left ICA stenosis per CT angiogram 6. History of diabetes mellitus with diabetic neuropathy 7. History of coronary artery disease status post heart catheterization and stent Plan: 1. Dakin's solution half-strength wet-to-dry daily 2. Elevate lower extremities 3. Apply Mediboot heel protectors to lower extremity 4. Continue local wound care 5. Continue antibiotics per recommendations from infectious disease 6. Continue with recommendations from neurology 7. Appreciate recommendations from cardiology 8. No plans on any surgical intervention at this time Thank you for this consultation, we will continue to follow. The impression and plan of care has been dictated as directed. Dr. Triana I performed a history and examination of this patient, discussed the same with the dictator. I agree with the dictator's note ,documented as a scribe. Any additional findings or plans will be noted.
--- NOTE | 2021-06-23 13:36 | MR ---
EXAMINATION TYPE: MR brain wo con DATE OF EXAM: 06/23/2021 COMPARISON: CT brain from yesterday. MRI brain from 2012 HISTORY: Aphasia. Stroke. TECHNIQUE: Multiplanar, multisequence imaging of the brain and brainstem is performed without IV cont rast. FINDINGS: Slightly suboptimal study as patient has difficulty holding still. Diffusion weighted images demonstrate no evidence of a recent infarct or other diffusion abnormality. There is mild to moderate ventricular and sulcal prominence greatest over the bilateral frontal lobes with interval progression from 2012 MRI. There are scattered foci of T2 hyperintensity seen througho ut the white matter bilaterally with interval progression from 2012 MRI. Lesions are nonspecific in a ppearance and distribution. Midline structures demonstrate normal morphology. The craniocervical junction appears within normal limits. Normal vascular flow voids are present. The visualized sinuses are clear and the globes are i ntact. Patchy fluid in the bilateral mastoid air cells is present currently more prominent from recen t CT. IMPRESSION: 1. No MRI evidence for a recent infarct. 2. Mild to moderate diffuse cerebral atrophy and moderate chronic small vessel ischemic change with i nterval degenerative progression from 2012 MRI. 3. Increasing fluid signal bilateral mastoid air cells raises concern for developing mastoiditis, cor relate clinically.
--- NOTE | 2021-06-23 14:17 | P.PN ---
Subjective Progress Note Date: 06/23/21 Principal diagnosis: Foot ulcer 80-year-old female, seen in the emergency department. She presented to the emergency room with a chief complaint of severe left leg pain with infected ulcer. She developed this ulcer and lost January 2021. The patient has had debridement, by Dr. Triana and Dr. Herrera first one on April 2 one on May. The patient comes into the emergency room, because of weakness. She has a low blood pressure. She is a lactic acid is 6. The primary service was concerned about sepsis. The patient is also complaining about left foot pain, numbness in her left foot, and elevated blood sugar. The ulcer on the medial left leg, has been present for many months, and has gotten worse. There is no fever or chills. The patient has a history of diabetes, hyperlipidemia, hypertension, GERD, osteoarthritis, peripheral vascular occlusive disease, di abetic neuropathy, CAD, with previous heart catheterization and stent placement. White count 10.3, hemoglobin 8.7, hematocrit 27.4, and platelet count 520,000. Sodium 135, potassium 4.9, chlorides 98, CO2 22, anion gap 15, BUN 69, and creatinine 1.66. Lactic acid is 6.1. Urine is light yellow and cloudy. There is moderate blood. There is 4+ glucose. There is many bacteria. The patient is not having any urinary tract symptoms. X-rays of the leg and foot, showed only soft tissue changes. The patient is received Rocephin and vancomycin in the ER. Blood pressure has been only in the mid 70s, systolic. She is being transferred to ICU.discussed with the racebook writer Dr. Comer Interval history: 06/19 Patient was examined at the bedside. Patient was transferred out of the ICU overnight Patient is complaining of shortness of breath and a chest x-ray showed interstitial edema. Patient was given a one-time dose of Lasix 40 mg IV push by pulmonary service. Patient denies any chest pain. Pending cardiology consultation 06/20 patient surgery was canceled today due to worsening shortness of breath and elevated troponin. VQ scan was low probability for PE. Cardiology was notified about positive troponin. 06/21 patient seen and examined at the bedside. She still complaining of shortness of breath but she denies any chest pain. Chest x-ray showed congestive heart failure patient's been getting Lasix. She is complaining of constipation. Otherwise no acute changes overnight 06/22: Patient had result code stroke was activated today. Per the patient's nurse today around shift change the patient was having the word salad and was not making sense that she was having slurred speech last normal was around 6 this a.m. today. As a result stroke code was activated. CT of the head was done which is reported as age-related atrophic and chronic small vessel ischemic change without acute intracranial process seen at this time. I personally reviewed the CT of the head there is no acute subacute ischemia there is no truncal normal hemorrhage. Patient has generalized atrophy appropriate for her age. CT angiography of the head and neck is reported that the neck has moderate proximal left ICA stenosis about 50% and mild on the right. Mild to moderate bilateral pleural effusion. If you septal lines suggest pulmonary vascular congestion. While the CT angiography of the head is reported as markedly the diminutive probably severely stenotic P1 segment left IAIN. Limited v visualization to nonvisualization of P2 segment and more distal left ALUMINUM SHINGLE ROOFER could reflect sequela of severe stenosis or occlusion. Possible tiny 2 mm saccular aneurysm projecting anteriorly from the left ALUMINUM SHINGLE ROOFER at the expected takeoff of the posture from indicating artery. Moderate to severe irregular alpha sclerotic stenosis throughout the left carotid siphons including the cavernous and supra clinoid portions. Moderate irregular of his chronic stenosis throughout the right carotid siphons. Moderate focal stenosis midsegment of the basilar artery. Additional moderate focal stenosis a 3 segment left IAIN. Per the patient's nurse the stroke attended all call was involved and no IV TPA since the patient was on IV heparin drip and the risk outweighed the benefit. Per the patient nurse during this event today at patient had a proximal atrial fibrillation which is new. 06/23: Patient currently doing well, she is mainly complaining from fatigue due to lack of sleep. In addition she has been having double vision and shortness of breath. Has a chronic feet pain, unchanged. Objective - Vital Signs Vital signs: Vital Signs Temp 97.3 F L 06/23/21 08:00 Pulse 73 06/23/21 08:00 Resp 18 06/23/21 08:00 BP 118/63 06/23/21 08:00 Pulse Ox 96 06/23/21 08:00 Intake & Output 06/22/21 06/23/21 06/23/21 18:59 06:59 18:59 Intake Total 778.733 50 Output Total 1650 550 Balance -871.267 50 -550 Weight 83.007 kg Intake: IV 10 Invasive Line 6 10 Intake, IV Titration 648.733 Amount Cefepime 2 gm In Sodium 100 Chloride 0.9% 100 ml @ 25 mls/hr IVPB Q12HR [facility] Rx #:[id number] Heparin Sod,Pork in 0.45% 208.733 NaCl 25,000 unit In 0.45 % NaCl 1 250ml.bag @ 12 UNITS/KG/HR 9.961 mls/hr IV .Q24H [facility] Rx#: [id number] Lactated Ringers 1,000 ml 240 @ 20 mls/hr IV .Q24H [facility] Rx#:[id number] Sodium Ferric Gluconat- 100 Sucrose 125 mg In Sodium Chloride 0.9% 100 ml @ 100 mls/hr IVPB DAILY [facility] Rx#:[id number] Oral 120 50 Output: Urine 1650 550 Uretheral (Triana) 1650 Other: Voiding Method Indwelling Catheter Indwelling Catheter - Exam General: non toxic, no distress, appears at stated age Derm: warm, dry Head: atraumatic, normocephalic, symmetric Eyes: EOMI, no lid lag, anicteric sclera Mouth: no lip lesion, mucus membranes moist Cardiovascular: S1S2 irregularly irregular Lungs: CTA bilateral, no rhonchi, no rales , no accessory muscle use Abdominal: soft, nontender to palpation, no guarding, no appreciable organomegaly Ext: Left leg ulcer 7 x 6 cm deep with necrotic tissue and pus surrounding cellulitis and edema. Tender to palpation Neuro: CN II-XI grossly intact, no focal neuro deficits Psych: Alert, oriented, appropriate affect - Labs CBC & Chem 7: 06/23/21 06:24 06/23/21 06:24 Labs: Abnormal Lab Results - Last 24 Hours (Table) 06/22/21 06/22/21 06/22/21 Range/Units 10:02 10:02 17:03 RBC (3.80-5.40) m/uL Hgb (11.4-16.0) gm/dL Hct (34.0-46.0) % MCHC (31.0-37.0) g/dL Sodium (137-145) mmol/L BUN (7-17) mg/dL Creatinine (0.52-1.04) mg/dL POC Glucose (mg/dL) 328 H (75-99) mg/dL Total Protein (6.3-8.2) g/dL Albumin (3.5-5.0) g/dL Vitamin B12 >2000.0 H (200.0-944.0) pg/mL RBC Folate 1,050 H (280 - 791) ng/mL 06/22/21 06/23/21 06/23/21 Range/Units 20:31 06:24 06:24 RBC 2.38 L (3.80-5.40) m/uL Hgb 7.1 L (11.4-16.0) gm/dL Hct 23.4 L (34.0-46.0) % MCHC 30.3 L (31.0-37.0) g/dL Sodium 134 L (137-145) mmol/L BUN 25 H (7-17) mg/dL Creatinine 1.40 H (0.52-1.04) mg/dL POC Glucose (mg/dL) 271 H (75-99) mg/dL Total Protein 5.7 L (6.3-8.2) g/dL Albumin 2.8 L (3.5-5.0) g/dL Vitamin B12 (200.0-944.0) pg/mL RBC Folate (280 - 791) ng/mL 06/23/21 Range/Units 12:05 RBC (3.80-5.40) m/uL Hgb (11.4-16.0) gm/dL Hct (34.0-46.0) % MCHC (31.0-37.0) g/dL Sodium (137-145) mmol/L BUN (7-17) mg/dL Creatinine (0.52-1.04) mg/dL POC Glucose (mg/dL) 167 H (75-99) mg/dL Total Protein (6.3-8.2) g/dL Albumin (3.5-5.0) g/dL Vitamin B12 (200.0-944.0) pg/mL RBC Folate (280 - 791) ng/mL Microbiology - Last 24 Hours (Table) 06/17/21 10:53 Blood Culture - Final Blood No Growth after 144 hours 06/17/21 10:53 Blood Culture - Preliminary Blood No Growth after 120 hours Assessment and Plan Plan: #Infected left leg ulcer with severe sepsis -Patient was found to be hypotensive in the emergency room hypotension improved with IV fluids -Lactic acid 6.1--resolved -Patient was transferred out of ICU -IV fluids resuscitation. -IV cefepime per ID -Wound culture--growing Citrobacter and capsula pneumoniae -Blood cultures ordered 2--negative to date -Vascular surgery cancelled surgery on June 20 due to elevated troponin and CHF exacerbation -MRI of the left Leg ruled out osteomyelitis and abscess showed evidence of cell ulitis and myositis #New-onset A. fib with rapid ventricular response -Resume beta blockers per cardiology -Start eliquis d/w neuro #Acute Aphasia and dysarthria likely metabolic encephalopathy, no stroke on MRI -Neurology consulted - During this event per nurse patient had run of A-fib. #Acute systolic CHF exacerbation -History of diastolic CHF. EF dropped to 4045% -was getting IV diuresis per cardiology and nephrology. Will hold today per nephro. #NSTEMI #History coronary disease status post stent -Possibly type II secondary to demand ischemia -Resume beta blockers -2-D echo showed drop in EF 40-45% with apical anterior, lateral and inferior septal hypokinesis -Heart cath was canceled -Cardiology input appreciated #Severe peripheral vascular disease -Vascular surgery consulted #Severe lactic acidosis -Improved IV fluids -Discontinue metformin #Hypotension -Secondary to sepsis -Improved with IV fluids #Acute kidney injury -Nephrology -Most likely secondary to hypotension and prerenal azotemia possibly ATN -Hold diuretics and antihypertensive medications -Renal ultrasound ruled out obstruction -Avoid nephrotoxic agents
--- NOTE | 2021-06-23 14:56 | P.PN ---
Subjective The patient is an 80-year-old female patient with CAD with prior PCI of the mid LAD in 2018, type 2 diabetes, hypertension, dyslipidemia, peripheral vascular disease, prior tobacco use. She follows in the office with Dr. Hsu. Patient admitted to the hospital with lower extremities cellulitis and we consulted to see the patient for shortness of breath patient she was ruled in for acute coronary event. 06/22/2021 The initial plan is to pursue with a heart catheterization later on today but unfortunately the patient developed an episode of TIA/stroke. She underwent a computed tomography scan of the brain and that event continues to be in vestigated by the neurology service. The heart catheterization would be canceled. When she was seen this morning she was asymptomatic in time of chest pain or chest discomfort and she was alert and oriented 3. Currently she is on heparin IV. She did have an episode of irregular rhythm seems to be in atrial fibrillation which is known to her. The echo revealed impaired LV function was EF around 40% with evidence of wall motion abnormality is concerning for severe underlying coronary artery disease. 06/23/2021 Patient seen and examined at bedside, distress. She denies any chest pain. Telemetry reviewed patient in sinus mechanism heart rate 6070s. Patient hep santo was discontinued due to neurology for MRI results. GENERAL: Well-appearing, well-nourished and in no acute distress. NECK: Supple without JVD or thyromegaly. LUNGS: Breath sounds clear to auscultation bilaterally. Respiration equal and unlabored. No wheezes, rales or rhonchi. HEART: Regular rate and rhythm without murmurs, rubs or gallops. S1 and S2 heard. EXTREMITIES: Normal range of motion, no edema. No clubbing or cyanosis. Peripheral pulses intact. ASSESSMENT New-onset paroxysmal atrial fibrillation, now back in sinus mechanism NSTEMI Cardiomyopathy with an EF of 4045 percent, unclear if ischemic versus nonischemic at this time Possible TIA/CVA CAD with prior PCI of the mid LAD in 2018 Type 2 diabetes Hypertension Dyslipidemia Peripheral vascular disease Prior tobacco use PLAN Heart catheterization on hold We will recommend anticoagulation, currently on hold per neurology until MRI results Continue aspirin, add statin, continue beta gil Further recommendations based on clinical course Nurse Practitioner note has been reviewed, I agree with a documented findings a nd plan of care. Patient was seen and examined. Objective - Vital Signs Vital signs: Vital Signs Temp 97.3 F L 06/23/21 08:00 Pulse 73 06/23/21 08:00 Resp 18 06/23/21 08:00 BP 118/63 06/23/21 08:00 Pulse Ox 96 06/23/21 08:00 Intake & Output 06/22/21 06/23/21 06/23/21 18:59 06:59 18:59 Intake Total 778.733 50 Output Total 1650 550 Balance -871.267 50 -550 Weight 83.007 kg Intake: IV 10 Invasive Line 6 10 Intake, IV Titration 648.733 Amount Cefepime 2 gm In Sodium 100 Chloride 0.9% 100 ml @ 25 mls/hr IVPB Q12HR [facility] Rx #:[id number] Heparin Sod,Pork in 0.45% 208.733 NaCl 25,000 unit In 0.45 % NaCl 1 250ml.bag @ 12 UNITS/KG/HR 9.961 mls/hr IV .Q24H [facility] Rx#: [id number] Lactated Ringers 1,000 ml 240 @ 20 mls/hr IV .Q24H [facility] Rx#:[id number] Sodium Ferric Gluconat- 100 Sucrose 125 mg In Sodium Chloride 0.9% 100 ml @ 100 mls/hr IVPB DAILY [facility] Rx#:[id number] Oral 120 50 Output: Urine 1650 550 Uretheral (Triana) 1650 Other: Voiding Method Indwelling Catheter Indwelling Catheter - Labs CBC & Chem 7: 06/23/21 06:24 06/23/21 06:24 Labs: Abnormal Lab Results - Last 24 Hours (Table) 06/22/21 06/22/21 06/22/21 Range/Units 10:02 10:02 17:03 RBC (3.80-5.40) m/uL Hgb (11.4-16.0) gm/dL Hct (34.0-46.0) % MCHC (31.0-37.0) g/dL Sodium (137-145) mmol/L BUN (7-17) mg/dL Creatinine (0.52-1.04) mg/dL POC Glucose (mg/dL) 328 H (75-99) mg/dL Total Protein (6.3-8.2) g/dL Albumin (3.5-5.0) g/dL Vitamin B12 >2000.0 H (200.0-944.0) pg/mL RBC Folate 1,050 H (280 - 791) ng/mL 06/22/21 06/23/21 06/23/21 Range/Units 20:31 06:24 06:24 RBC 2.38 L (3.80-5.40) m/uL Hgb 7.1 L (11.4-16.0) gm/dL Hct 23.4 L (34.0-46.0) % MCHC 30.3 L (31.0-37.0) g/dL Sodium 134 L (137-145) mmol/L BUN 25 H (7-17) mg/dL Creatinine 1.40 H (0.52-1.04) mg/dL POC Glucose (mg/dL) 271 H (75-99) mg/dL Total Protein 5.7 L (6.3-8.2) g/dL Albumin 2.8 L (3.5-5.0) g/dL Vitamin B12 (200.0-944.0) pg/mL RBC Folate (280 - 791) ng/mL 06/23/21 Range/Units 12:05 RBC (3.80-5.40) m/uL Hgb (11.4-16.0) gm/dL Hct (34.0-46.0) % MCHC (31.0-37.0) g/dL Sodium (137-145) mmol/L BUN (7-17) mg/dL Creatinine (0.52-1.04) mg/dL POC Glucose (mg/dL) 167 H (75-99) mg/dL Total Protein (6.3-8.2) g/dL Albumin (3.5-5.0) g/dL Vitamin B12 (200.0-944.0) pg/mL RBC Folate (280 - 791) ng/mL Microbiology - Last 24 Hours (Table) 06/17/21 10:53 Blood Culture - Final Blood No Growth after 144 hours 06/17/21 10:53 Blood Culture - Final Blood No Growth after 144 hours
--- NOTE | 2021-06-23 15:43 | P.PN ---
Subjective Progress Note Date: 06/23/21 I was asked to evaluate this patient. Apparently the patient has some bilateral pleural effusions was noted on the CAT scan of the head and neck. The patient is not having any major respiratory difficulties and the patient is currently on 3 L of oxygen nasal cannula. The patient is doing well. No significant shortness of breath. She did have a bout of a altered mentation yesterday. The patient was having some more salads and she was not making sense and she has also slurred speech. A code stroke was extubated on her. CAT scan of the head showed age-related atrophic changes along with chronic small vessel ischemic changes and there was no acute intracranial abnormalities. CT of the brain s howed no evidence of any hemorrhage. CT angiography also showed moderate proximal left ICA stenosis approximately 50% and mild disease involving the right. There was also possible left MATHEMATICIAN RESEARCH stenosis/occlusion. 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 Additional mother focal disease involving the 3 segments of the left IAIN. Neurologist on the case in this regard. The patient not having any focal neurological deficits. His speech is normalized. The patient was not given any TPA. The patient does have approximately atrial fibrillation the patient is still on Eliquis. The patient remains on the same antibiotic coverage. Levemir this is being used for blood sugar control. The creatinine is stable at 1.4. Bili BUN of 25 and a white cell count is at 9.5. Objective - Vital Signs Vital signs: Vital Signs Temp 97.3 F L 06/23/21 08:00 Pulse 73 06/23/21 08:00 Resp 18 06/23/21 08:00 BP 118/63 06/23/21 08:00 Pulse Ox 96 06/23/21 08:00 Intake & Output 06/22/21 06/23/21 06/23/21 18:59 06:59 18:59 Intake Total 778.733 50 Output Total 1650 550 Balance -871.267 50 -550 Weight 83.007 kg Intake: IV 10 Invasive Line 6 10 Intake, IV Titration 648.733 Amount Cefepime 2 gm In Sodium 100 Chloride 0.9% 100 ml @ 25 mls/hr IVPB Q12HR [facility] Rx #:[id number] Heparin Sod,Pork in 0.45% 208.733 NaCl 25,000 unit In 0.45 % NaCl 1 250ml.bag @ 12 UNITS/KG/HR 9.961 mls/hr IV .Q24H [facility] Rx#: [id number] Lactated Ringers 1,000 ml 240 @ 20 mls/hr IV .Q24H [facility] Rx#:[id number] Sodium Ferric Gluconat- 100 Sucrose 125 mg In Sodium Chloride 0.9% 100 ml @ 100 mls/hr IVPB DAILY [facility] Rx#:[id number] Oral 120 50 Output: Urine 1650 550 Uretheral (Triana) 1650 Other: Voiding Method Indwelling Catheter Indwelling Catheter Indwelling Catheter - Exam GENERAL EXAM: Alert, very pleasant 80-year-old female patient on 2 L of oxygen and a pulse ox of 96%, comfortable in no apparent distress. HEAD: Normocephalic/atraumatic. EYES: Normal reaction of pupils, equal size. Conjunctiva pink, sclera white. NOSE: Clear with pink turbinates. THROAT: No erythema or exudates. NECK: No masses, no JVD, no thyroid enlargement, no adenopathy. CHEST: No chest wall deformity. Symmetrical expansion. LUNGS: Equal air entry with diffuse coarse crackles CVS: Regular rate and rhythm, normal S1 and S2, no gallops, no murmurs, no rubs ABDOMEN: Soft, nontender. No hepatosplenomegaly, normal bowel sounds, no guarding or rigidity. EXTREMITIES: No clubbing, no edema, no cyanosis, 2+ pulses and upper and lower extremities. MUSCULOSKELETAL: Muscle strength and tone normal. SPINE: No scoliosis or deformity SKIN: Left pretibial area unstageable wound is covered with a dressing. CENTRAL NERVOUS SYSTEM: Alert and oriented -3. No focal deficits, tone is normal in all 4 extremities. PSYCHIATRIC: Alert and oriented -3. Appropriate affect. Intact judgment and insight. - Labs CBC & Chem 7: 06/23/21 06:24 06/23/21 06:24 Labs: Abnormal Lab Results - Last 24 Hours (Table) 06/22/21 06/22/21 06/22/21 Range/Units 10:02 17:03 20:31 RBC (3.80-5.40) m/uL Hgb (11.4-16.0) gm/dL Hct (34.0-46.0) % MCHC (31.0-37.0) g/dL Sodium (137-145) mmol/L BUN (7-17) mg/dL Creatinine (0.52-1.04) mg/dL POC Glucose (mg/dL) 328 H 271 H (75-99) mg/dL Total Protein (6.3-8.2) g/dL Albumin (3.5-5.0) g/dL RBC Folate 1,050 H (280 - 791) ng/mL 06/23/21 06/23/21 06/23/21 Range/Units 06:24 06:24 12:05 RBC 2.38 L (3.80-5.40) m/uL Hgb 7.1 L (11.4-16.0) gm/dL Hct 23.4 L (34.0-46.0) % MCHC 30.3 L (31.0-37.0) g/dL Sodium 134 L (137-145) mmol/L BUN 25 H (7-17) mg/dL Creatinine 1.40 H (0.52-1.04) mg/dL POC Glucose (mg/dL) 167 H (75-99) mg/dL Total Protein 5.7 L (6.3-8.2) g/dL Albumin 2.8 L (3.5-5.0) g/dL RBC Folate (280 - 791) ng/mL Microbiology - Last 24 Hours (Table) 06/17/21 10:53 Blood Culture - Final Blood No Growth after 144 hours 06/17/21 10:53 Blood Culture - Final Blood No Growth after 144 hours Assessment and Plan Plan: #1. Acute sepsis related to left lower extremity wound infection, wound cultures are positive for gram-negative bacilli distant to be an anaerobic gram-negative bacillus and the wound culture also showed Citrobacter and Klebsiella, fungal cultures are pending, patient is currently on cefepime . #2. Lactic acidosis, hypotension secondary to sepsis, resolved #3. Coronary artery disease, status post heart catheterization and stent placement #4. History of diabetes mellitus type 2, with diabetic neuropathy #5. Peripheral vascular occlusive disease #6. History of hyperlipidemia #7. History of GERD/reflux #8. History of hypertension #9 acute kidney injury in the creatinine is stable for now. Creatinine is at 1.4 #10 coronary artery disease with previous history of coronary stenting #11 CHF with impaired ejection fraction 40-45% along with apical, anterior, lateral and inferior wall hypokinesis. #12 acute aphasia and dysarthria, no evidence of any CVA based on MRI and neurology's abdomen the case and the patient has been in the cognitive Eliquis regarding atrial fibrillation #13 bilateral pleural effusion, multifactorial, likely transmitted secondary to CHF Plan: No signs of any respiratory distress Patient is on oxygen 3 L per minute nasal cannula Continue IV cefepime Continue articulation with Eliquis Blood sugar management per medicine Neurology, cardiology and nephrology is on the case regarding this other comorbidities. Continue using incentive spirometer and gradually wean down the FiO2 to maintain saturation above 90% Will follow on an as-needed basis
[2021-06-23] MEDS: polyethylene glycoL 3350 17 GM POWD.PACK PO SCH (15:48)
[2021-06-23] MEDS: IPRATROPIUM-ALBUTEROL 3 ML NEB INHALATION PRN (15:51)
[2021-06-23] MEDS ORDERED: SODIUM CHLORIDE 0.9% 250 ML IV ONE (16:45)
[2021-06-23 17:05] LABS: Glucose,Whole Blood 315 mg/dL (75-99)
[2021-06-23] MEDS: LACTATED RINGERS 1,000 ML IV SCH (18:24)
[2021-06-23] MEDS: HEPARIN SODIUM,PORCINE/PF 5,000 UNIT/0.5 ML SYRINGE SQ SCH (18:26)
[2021-06-23] MEDS: LACTOBACILLUS ACIDOPH & BULGAR 1 EACH PACKET PO SCH (18:56)
--- NOTE | 2021-06-23 19:33 | P.PN ---
Subjective Progress Note Date: 06/23/21 Principal diagnosis: anemia In f/u today pt is having less pain in the leg, she is less anxious as well. She denies any bleeding, fever or nausea. Objective - Vital Signs Vital signs: Vital Signs Temp 98.5 F 06/23/21 04:00 Pulse 96 06/23/21 04:00 Resp 18 06/23/21 04:00 BP 124/78 06/23/21 04:00 Pulse Ox 98 06/23/21 04:00 Intake & Output 06/22/21 06/23/21 06/23/21 18:59 06:59 18:59 Intake Total 778.733 50 Output Total 1650 550 Balance -871.267 50 -550 Weight 83.007 kg Intake: IV 10 Invasive Line 6 10 Intake, IV Titration 648.733 Amount Cefepime 2 gm In Sodium 100 Chloride 0.9% 100 ml @ 25 mls/hr IVPB Q12HR [facility] Rx #:[id number] Heparin Sod,Pork in 0.45% 208.733 NaCl 25,000 unit In 0.45 % NaCl 1 250ml.bag @ 12 UNITS/KG/HR 9.961 mls/hr IV .Q24H [facility] Rx#: [id number] Lactated Ringers 1,000 ml 240 @ 20 mls/hr IV .Q24H [facility] Rx#:[id number] Sodium Ferric Gluconat- 100 Sucrose 125 mg In Sodium Chloride 0.9% 100 ml @ 100 mls/hr IVPB DAILY [facility] Rx#:[id number] Oral 120 50 Output: Urine 1650 550 Uretheral (Triana) 1650 Other: Voiding Method Indwelling Catheter Indwelling Catheter - Constitutional General appearance: Present: average body habitus, cooperative, no acute distress - EENT Eyes: Present: anicteric sclerae, EOMI ENT: Present: hearing grossly normal - Respiratory Respiratory: bilateral: CTA - Cardiovascular Heart sounds: normal: S1, S2 - Peripheral edema leg Peripheral Edema: left: Other (wrapped from wound), bilateral: None - Neurologic Neurologic: Present: CNII-XII intact - Musculoskeletal Musculoskeletal: Present: generalized weakness, strength equal bilaterally - Psychiatric Psychiatric: Present: A&O x's 3, appropriate affect, intact judgment & insight - Labs CBC & Chem 7: 06/23/21 06:24 06/23/21 06:24 Labs: Abnormal Lab Results - Last 24 Hours (Table) 06/22/21 06/22/21 06/22/21 Range/Units 07:58 10:02 10:02 RBC (3.80-5.40) m/uL Hgb (11.4-16.0) gm/dL Hct (34.0-46.0) % MCHC (31.0-37.0) g/dL Retic Count 4.4 H (0.5-2.0) % APTT 61.9 H (22.0-30.0) sec Sodium (137-145) mmol/L BUN (7-17) mg/dL Creatinine (0.52-1.04) mg/dL POC Glucose (mg/dL) (75-99) mg/dL Total Protein (6.3-8.2) g/dL Albumin (3.5-5.0) g/dL Vitamin B12 >2000.0 H (200.0-944.0) pg/mL 06/22/21 06/22/21 06/22/21 Range/Units 11:55 17:03 20:31 RBC (3.80-5.40) m/uL Hgb (11.4-16.0) gm/dL Hct (34.0-46.0) % MCHC (31.0-37.0) g/dL Retic Count (0.5-2.0) % APTT (22.0-30.0) sec Sodium (137-145) mmol/L BUN (7-17) mg/dL Creatinine (0.52-1.04) mg/dL POC Glucose (mg/dL) 115 H 328 H 271 H (75-99) mg/dL Total Protein (6.3-8.2) g/dL Albumin (3.5-5.0) g/dL Vitamin B12 (200.0-944.0) pg/mL 06/23/21 06/23/21 Range/Units 06:24 06:24 RBC 2.38 L (3.80-5.40) m/uL Hgb 7.1 L (11.4-16.0) gm/dL Hct 23.4 L (34.0-46.0) % MCHC 30.3 L (31.0-37.0) g/dL Retic Count (0.5-2.0) % APTT (22.0-30.0) sec Sodium 134 L (137-145) mmol/L BUN 25 H (7-17) mg/dL Creatinine 1.40 H (0.52-1.04) mg/dL POC Glucose (mg/dL) (75-99) mg/dL Total Protein 5.7 L (6.3-8.2) g/dL Albumin 2.8 L (3.5-5.0) g/dL Vitamin B12 (200.0-944.0) pg/mL Microbiology - Last 24 Hours (Table) 06/17/21 10:53 Blood Culture - Preliminary Blood No Growth after 120 hours 06/17/21 10:53 Blood Culture - Preliminary Blood No Growth after 120 hours - Imaging and Cardiology MRI - head: report reviewed Assessment and Plan (1) Normocytic normochromic anemia Narrative/Plan: Anemia started to present 03/31, has been persistent and progressive. She has had chronic infection, been on longterm abx and has CKD, all of which can contribute to anemia. Saturation is low. Nephrology has ordered iron. Other labs ordered to complete anemia work up did not reveal any other deficiencies. Hgb has not been so low as to need transfusion just yet. Stable today. CBC monitoring. Current Visit: Yes Status: Acute Priority: High Code(s): D64.9 - ANEMIA, UNSPECIFIED SNOMED Code(s): 08392608
[2021-06-23 20:27] LABS: Glucose,Whole Blood 251 mg/dL (75-99)
[2021-06-23] MEDS: APIXABAN 5 MG TAB PO SCH (20:34)
[2021-06-23] MEDS: ATORVASTATIN 80 MG TAB PO SCH (20:34)
[2021-06-23] MEDS: FAMOTIDINE 20 MG TAB PO SCH (20:34)
[2021-06-23] MEDS: MELATONIN 3 MG TABLET PO SCH (21:05)
[2021-06-24] MEDS: ACETAMINOPHEN TAB 500 MG TAB PO PRN ×2 (01:33→16:07)
[2021-06-24] MEDS: SODIUM HYPOCHLORITE 0.25% 480 ML BOT MISCELLANE SCH ×2 (04:19→04:20)
[2021-06-24] MEDS: HYDROcodone/APAP 5-325MG 1 EACH TAB PO PRN ×2 (04:45→20:07)
[2021-06-24 06:20] LABS: Glucose,Whole Blood 71 mg/dL (75-99)
[2021-06-24] MEDS: INSULIN ASPART (NovoLOG) 100 UNIT/ML VIAL SQ SCH ×4 (06:34→22:38)
[2021-06-24] MEDS: PANTOPRAZOLE 40 MG TABLET PO SCH (06:41)
[2021-06-24 07:33] LABS: Methylmalonic Acid 0.39 umol/L (<0.40)
--- NOTE | 2021-06-24 08:15 | XR ---
EXAMINATION TYPE: XR chest 1V DATE OF EXAM: 06/24/2021 COMPARISON: 06/20/2021 HISTORY: Shortness of breath FINDINGS: There are bilateral pleural effusions with cardiomegaly and bibasilar infiltrate. There is a diffuse interstitial pattern. Atherosclerotic change aorta. Diffuse osteopenia. IMPRESSION: 1. Correlate for CHF otherwise consider diffuse pneumonia. No interval change.
[2021-06-24 08:50] LABS: HCT 24.2 % (34.0-46.0); HGB 7.2 gm/dL (11.4-16.0); Hypochromasia Marked; MCH 29.4 pg (25.0-35.0); MCHC 29.8 g/dL (31.0-37.0); MCV 98.6 fL (80.0-100.0); Macrocytosis Slight; Mean Platelet Volume 8.2; Platelet Count 469 k/uL (150-450); RBC 2.45 m/uL (3.80-5.40); RDW 15.4 % (11.5-15.5); WBC 10.4 k/uL (3.8-10.6)
[2021-06-24 09:03] LABS: Albumin 2.8 g/dL (3.5-5.0); Magnesium 2.2 mg/dL (1.6-2.3); Potassium 4.7 mmol/L (3.5-5.1); Total Bilirubin 0.4 mg/dL (0.2-1.3); Total Protein 5.7 g/dL (6.3-8.2)
--- NOTE | 2021-06-24 09:20 | P.PN ---
Subjective Patient is seen in follow-up for acute kidney injury. Renal function slightly worse. Currently resting in bed. Blood pressure controlled. Nonoliguric. Has a Triana catheter. Oral intake fair. Currently on 2 L nasal cannula. Chest x- ray suggestive of CHF. Vital signs are stable. General: Awake. HEENT: Nasal cannula. LUNGS: Breath sounds decreased. Scattered rhonchi. HEART: Regular rhythm. ABDOMEN: Soft, no distention. EXTREMITITES: Trace edema. Objective - Vital Signs Vital signs: Vital Signs Temp 97.5 F L 06/24/21 08:39 Pulse 80 06/24/21 08:39 Resp 20 06/24/21 08:39 BP 114/77 06/24/21 08:39 Pulse Ox 95 06/24/21 08:39 Intake & Output 06/23/21 06/24/21 06/24/21 18:59 06:59 18:59 Intake Total 480 Output Total 550 1925 Balance -70 -1925 Intake: Oral 480 Output: Urine 550 1925 Other: Voiding Method Indwelling Catheter Indwelling Catheter Indwelling Catheter # Bowel Movements 1 - Labs CBC & Chem 7: 06/24/21 08:05 06/24/21 08:05 Labs: Abnormal Lab Results - Last 24 Hours (Table) 06/22/21 06/22/21 06/23/21 Range/Units 10:02 10:02 12:05 RBC (3.80-5.40) m/uL Hgb (11.4-16.0) gm/dL Hct (34.0-46.0) % MCHC (31.0-37.0) g/dL Plt Count (150-450) k/uL Sodium (137-145) mmol/L Chloride (98-107) mmol/L BUN (7-17) mg/dL Creatinine (0.52-1.04) mg/dL POC Glucose (mg/dL) 167 H (75-99) mg/dL Erythropoietin 69.15 H (2.00-30.00) mIU/mL Total Protein (6.3-8.2) g/dL Albumin (3.5-5.0) g/dL RBC Folate 1,050 H (280 - 791) ng/mL 06/23/21 06/23/21 06/24/21 Range/Units 16:57 20:25 06:19 RBC (3.80-5.40) m/uL Hgb (11.4-16.0) gm/dL Hct (34.0-46.0) % MCHC (31.0-37.0) g/dL Plt Count (150-450) k/uL Sodium (137-145) mmol/L Chloride (98-107) mmol/L BUN (7-17) mg/dL Creatinine (0.52-1.04) mg/dL POC Glucose (mg/dL) 315 H 251 H 71 L (75-99) mg/dL Erythropoietin (2.00-30.00) mIU/mL Total Protein (6.3-8.2) g/dL Albumin (3.5-5.0) g/dL RBC Folate (280 - 791) ng/mL 06/24/21 06/24/21 Range/Units 08:05 08:05 RBC 2.45 L (3.80-5.40) m/uL Hgb 7.2 L (11.4-16.0) gm/dL Hct 24.2 L (34.0-46.0) % MCHC 29.8 L (31.0-37.0) g/dL Plt Count 469 H (150-450) k/uL Sodium 136 L (137-145) mmol/L Chloride 108 H (98-107) mmol/L BUN 23 H (7-17) mg/dL Creatinine 1.48 H (0.52-1.04) mg/dL POC Glucose (mg/dL) (75-99) mg/dL Erythropoietin (2.00-30.00) mIU/mL Total Protein 5.7 L (6.3-8.2) g/dL Albumin 2.8 L (3.5-5.0) g/dL RBC Folate (280 - 791) ng/mL Microbiology - Last 24 Hours (Table) 06/17/21 10:53 Blood Culture - Final Blood No Growth after 144 hours 06/17/21 10:53 Blood Culture - Final Blood No Growth after 144 hours Assessment and Plan Plan: Assessment: 1. Acute kidney injury mostly prerenal secondary to cardiorenal syndrome and hypotension. Cortisol level. UA fairly benign. No hydronephrosis noted on kidney ultrasound. Creatinine 1.48 today. Patient received IV contrast on 06/22/2021 for CTA. 2. Acute on chronic systolic CHF with ejection fraction of 40-45%. 3. Volume overload. 4. Metabolic acidosis secondary to acute kidney injury and lactic acidosis. Improved. 5. Anemia. Iron deficiency noted - s/p IV iron. Hematology following. 6. Rule out chronic kidney disease. Creatinine in June 2019 was 1.23 and 1.6 as of 10/22/2020. It was as low as 1.05 this admission. 7. Left lower extremity wound/cellulitis. On antibiotics. 8. Diabetes mellitus. 9. History of coronary disease status post cardiac stenting in the past. 10. Questionable CVA. Neurology following. No recent infarct noted on MRI. Plan: Add IV Lasix 40 mg daily as chest x-ray suggestive of CHF. Avoid nephrotoxins. Add Aranesp. Continue to monitor renal function and urine output. Monitor for contrast-induced acute kidney injury.
[2021-06-24] MEDS: PREGABALIN 75 MG CAP PO SCH ×2 (09:43→21:17)
[2021-06-24] MEDS: CHOLECALCIFEROL 25 MCG (1000 IU) TABLET PO SCH (09:43)
[2021-06-24] MEDS: FERROUS SULFATE 325 MG TAB PO SCH (09:43)
[2021-06-24] MEDS: ASPIRIN 81 MG PO SCH (09:43)
[2021-06-24] MEDS: ASCORBIC ACID 500 MG TAB PO SCH (09:43)
[2021-06-24] MEDS: FENOFIBRATE 160 MG TAB PO SCH (09:43)
[2021-06-24] MEDS: DOCUSATE 100 MG CAP PO SCH ×2 (09:43→21:17)
[2021-06-24] MEDS: CEFEPIME 2 GM in SODIUM CHLORIDE 0.9% 100 ML IVPB SCH ×2 (09:44→22:30)
[2021-06-24] MEDS: APIXABAN 5 MG TAB PO SCH ×2 (09:45→21:17)
[2021-06-24] MEDS: INSULIN DETEMIR (LEVEMIR) 100 UNIT/ML SYR SQ SCH ×2 (09:45→21:18)
[2021-06-24] MEDS: METOPROLOL TARTRATE 12.5 MG TAB PO SCH ×2 (09:45→21:17)
[2021-06-24] MEDS: CYANOCOBALAMIN 500 MCG TAB PO SCH (09:45)
[2021-06-24] MEDS: polyethylene glycoL 3350 17 GM POWD.PACK PO SCH (09:50)
[2021-06-24] MEDS: FUROSEMIDE 10 MG/ML 4 ML VIAL IV SCH (09:53)
[2021-06-24] MEDS ORDERED: DARBEPOETIN ALFA 40 MCG/0.4 ML SYRINGE SQ SCH (10:00)
--- NOTE | 2021-06-24 10:53 | P.PN ---
Subjective Progress Note Date: 06/24/21 Patient was seen and examined lying in bed. She is without any acute changes through the night. No focal deficits. States the left leg does feel better and has been looking better. Still has some discomfort on her heel. She's been afebrile. She continues on cefepime. Objective - Vital Signs Vital signs: Vital Signs Temp 97.2 F L 06/24/21 04:00 Pulse 76 06/24/21 04:00 Resp 18 06/24/21 04:00 BP 93/56 06/24/21 04:00 Pulse Ox 93 L 06/24/21 04:00 Intake & Output 06/23/21 06/24/21 06/24/21 18:59 06:59 18:59 Intake Total 480 Output Total 550 1925 Balance -70 -1925 Intake: Oral 480 Output: Urine 550 1925 Other: Voiding Method Indwelling Catheter Indwelling Catheter # Bowel Movements 1 - Exam General appearance: The patient is alert, oriented, appears in no acute distress. HET: Head is normocephalic and atraumatic. Neck: Supple. Extremities: Bilateral lower extremities warm to the touch. Bilateral lower extremity edema. Left lower extremity with dressing clean dry and intact. Nonpalpable DP or PT pulses. Monophasic DP signal. Neurological: No focal deficits. Strength and sensation are grossly intact. - Labs CBC & Chem 7: 06/24/21 08:05 06/24/21 08:05 Labs: Abnormal Lab Results - Last 24 Hours (Table) 06/22/21 06/22/21 06/23/21 Range/Units 10:02 10:02 12:05 POC Glucose (mg/dL) 167 H (75-99) mg/dL Erythropoietin 69.15 H (2.00-30.00) mIU/mL RBC Folate 1,050 H (280 - 791) ng/mL 06/23/21 06/23/21 06/24/21 Range/Units 16:57 20:25 06:19 POC Glucose (mg/dL) 315 H 251 H 71 L (75-99) mg/dL Erythropoietin (2.00-30.00) mIU/mL RBC Folate (280 - 791) ng/mL Microbiology - Last 24 Hours (Table) 06/17/21 10:53 Blood Culture - Final Blood No Growth after 144 hours 06/17/21 10:53 Blood Culture - Final Blood No Growth after 144 hours Assessment and Plan Assessment: 1. Nonhealing left lower extremity wound 2. Altered mental status changes, likely TIA 3. Elevated troponins 4. Atrial fibrillation 5. Right ICA stenosis 25%, 50% left ICA stenosis per CT angiogram 6. History of diabetes mellitus with diabetic neuropathy 7. History of coronary artery disease status post heart catheterization and stent Plan: 1. Dakin's solution half-strength wet-to-dry daily 2. Elevate lower extremities 3. Apply Mediboot heel protectors to lower extremity 4. Continue local wound care 5. Continue antibiotics per recommendations from infectious disease 6. Continue with recommendations from neurology 7. Appreciate recommendations from cardiology 8. No plans on any surgical intervention at this time Thank you for this consultation, we will continue to follow. The impression and plan of care has been dictated as directed. Dr. Triana I performed a history and examination of this patient, discussed the same with the dictator. I agree with the dictator's note ,documented as a scribe. Any additional findings or plans will be noted.
[2021-06-24 11:59] LABS: Glucose,Whole Blood 232 mg/dL (75-99)
--- NOTE | 2021-06-24 12:21 | P.PN ---
Subjective Progress Note Date: 06/23/21 Principal diagnosis: Left leg wound and cellulitis Patient is 80 year old female with a past medical history significant for chronic nonhealing wound, left lower extremity admitted to the hospital with worsening pain to the left leg wound concerning for cellulitis. On today's evaluation that is 06/23/2021 the patient denies any fever or chills, the patient pain to the left leg is currently controlled patient denies having any chest pain however complaining of some shortness of breath no cough or sputum production no abdominal pain no diarrhea Objective - Vital Signs Vital signs: Vital Signs Temp 97.3 F L 06/23/21 08:00 Pulse 73 06/23/21 08:00 Resp 18 06/23/21 08:00 BP 118/63 06/23/21 08:00 Pulse Ox 96 06/23/21 08:00 Intake & Output 06/22/21 06/23/21 06/23/21 18:59 06:59 18:59 Intake Total 778.733 50 Output Total 1650 550 Balance -871.267 50 -550 Weight 83.007 kg Intake: IV 10 Invasive Line 6 10 Intake, IV Titration 648.733 Amount Cefepime 2 gm In Sodium 100 Chloride 0.9% 100 ml @ 25 mls/hr IVPB Q12HR [facility] Rx #:[id number] Heparin Sod,Pork in 0.45% 208.733 NaCl 25,000 unit In 0.45 % NaCl 1 250ml.bag @ 12 UNITS/KG/HR 9.961 mls/hr IV .Q24H [facility] Rx#: [id number] Lactated Ringers 1,000 ml 240 @ 20 mls/hr IV .Q24H [facility] Rx#:[id number] Sodium Ferric Gluconat- 100 Sucrose 125 mg In Sodium Chloride 0.9% 100 ml @ 100 mls/hr IVPB DAILY [facility] Rx#:[id number] Oral 120 50 Output: Urine 1650 550 Uretheral (Triana) 1650 Other: Voiding Method Indwelling Catheter Indwelling Catheter - Exam GENERAL DESCRIPTION: An elderly female lying in bed in no distress RESPIRATORY SYSTEM: Unlabored breathing , decreased breath sounds at bases HEART: S1 S2 regular rate and rhythm , ABDOMEN: Soft , no tenderness EXTREMITIES: Left leg wound is currently dressed no drainage on the dressing - Labs CBC & Chem 7: 06/24/21 08:05 06/24/21 08:05 Labs: Abnormal Lab Results - Last 24 Hours (Table) 06/22/21 06/22/21 06/22/21 Range/Units 10:02 17:03 20:31 RBC (3.80-5.40) m/uL Hgb (11.4-16.0) gm/dL Hct (34.0-46.0) % MCHC (31.0-37.0) g/dL Sodium (137-145) mmol/L BUN (7-17) mg/dL Creatinine (0.52-1.04) mg/dL POC Glucose (mg/dL) 328 H 271 H (75-99) mg/dL Total Protein (6.3-8.2) g/dL Albumin (3.5-5.0) g/dL Vitamin B12 >2000.0 H (200.0-944.0) pg/mL 06/23/21 06/23/21 06/23/21 Range/Units 06:24 06:24 12:05 RBC 2.38 L (3.80-5.40) m/uL Hgb 7.1 L (11.4-16.0) gm/dL Hct 23.4 L (34.0-46.0) % MCHC 30.3 L (31.0-37.0) g/dL Sodium 134 L (137-145) mmol/L BUN 25 H (7-17) mg/dL Creatinine 1.40 H (0.52-1.04) mg/dL POC Glucose (mg/dL) 167 H (75-99) mg/dL Total Protein 5.7 L (6.3-8.2) g/dL Albumin 2.8 L (3.5-5.0) g/dL Vitamin B12 (200.0-944.0) pg/mL Microbiology - Last 24 Hours (Table) 06/17/21 10:53 Blood Culture - Preliminary Blood No Growth after 120 hours 06/17/21 10:53 Blood Culture - Preliminary Blood No Growth after 120 hours Assessment and Plan (1) Leg wound, left Current Visit: Yes Status: Acute Code(s): S81.802A - UNSPECIFIED OPEN WOUND, LEFT LOWER LEG, INITIAL ENCOUNTER SNOMED Code(s): 908546111 Plan: 1patient with chronic nonhealing wound to the left lower extremity in this patient presented to hospital with increasing pain swelling redness and concern for cellulitis apparently the patient did have a chronic wound and has been exposed to antibiotic will need to cover for both gram-positive as well as gram- negative pathogen. 2MRI did not show any evidence of Osteomyelitis, patient surgical debridement has been put on hold because of cardiac condition 3patient left leg culture has been finalized with Citrobacter and Klebsiella, For which the patient is currently covered with cefepime which will be continued while inpatient along with local wound care Time with Patient: Less than 30
--- NOTE | 2021-06-24 12:24 | P.PN ---
Subjective Progress Note Date: 06/24/21 Principal diagnosis: Left leg wound and cellulitis Patient is 80 year old female with a past medical history significant for chronic nonhealing wound, left lower extremity admitted to the hospital with worsening pain to the left leg wound concerning for cellulitis. On today's evaluation that is 06/24/2021 the patient Remains to be afebrile, the patient pain to the left leg is currently controlled , The patient denies chest pain breathing more comfortably no cough or sputum production patient denies any abdominal pain no diarrhea, Patient mention the dressing was seen this morning and the wound is looking much better to her Objective - Vital Signs Vital signs: Vital Signs Temp 98.5 F 06/24/21 11:20 Pulse 77 06/24/21 11:20 Resp 20 06/24/21 11:20 BP 140/68 06/24/21 11:20 Pulse Ox 94 L 06/24/21 11:20 Intake & Output 06/23/21 06/24/21 06/24/21 18:59 06:59 18:59 Intake Total 480 200 Output Total 550 1925 Balance -70 -1925 200 Intake: Oral 480 200 Output: Urine 550 1925 Other: Voiding Method Indwelling Catheter Indwelling Catheter Indwelling Catheter # Bowel Movements 1 - Exam GENERAL DESCRIPTION: An elderly female lying in bed in no distress RESPIRATORY SYSTEM: Unlabored breathing , decreased breath sounds at bases HEART: S1 S2 regular rate and rhythm , ABDOMEN: Soft , no tenderness EXTREMITIES: Left leg wound is currently dressed no drainage on the dressing - Labs CBC & Chem 7: 06/24/21 08:05 06/24/21 08:05 Labs: Abnormal Lab Results - Last 24 Hours (Table) 06/22/21 06/22/21 06/23/21 Range/Units 10:02 10:02 16:57 RBC (3.80-5.40) m/uL Hgb (11.4-16.0) gm/dL Hct (34.0-46.0) % MCHC (31.0-37.0) g/dL Plt Count (150-450) k/uL Sodium (137-145) mmol/L Chloride (98-107) mmol/L BUN (7-17) mg/dL Creatinine (0.52-1.04) mg/dL POC Glucose (mg/dL) 315 H (75-99) mg/dL Erythropoietin 69.15 H (2.00-30.00) mIU/mL Total Protein (6.3-8.2) g/dL Albumin (3.5-5.0) g/dL RBC Folate 1,050 H (280 - 791) ng/mL 06/23/21 06/24/21 06/24/21 Range/Units 20:25 06:19 08:05 RBC 2.45 L (3.80-5.40) m/uL Hgb 7.2 L (11.4-16.0) gm/dL Hct 24.2 L (34.0-46.0) % MCHC 29.8 L (31.0-37.0) g/dL Plt Count 469 H (150-450) k/uL Sodium (137-145) mmol/L Chloride (98-107) mmol/L BUN (7-17) mg/dL Creatinine (0.52-1.04) mg/dL POC Glucose (mg/dL) 251 H 71 L (75-99) mg/dL Erythropoietin (2.00-30.00) mIU/mL Total Protein (6.3-8.2) g/dL Albumin (3.5-5.0) g/dL RBC Folate (280 - 791) ng/mL 06/24/21 06/24/21 Range/Units 08:05 11:58 RBC (3.80-5.40) m/uL Hgb (11.4-16.0) gm/dL Hct (34.0-46.0) % MCHC (31.0-37.0) g/dL Plt Count (150-450) k/uL Sodium 136 L (137-145) mmol/L Chloride 108 H (98-107) mmol/L BUN 23 H (7-17) mg/dL Creatinine 1.48 H (0.52-1.04) mg/dL POC Glucose (mg/dL) 232 H (75-99) mg/dL Erythropoietin (2.00-30.00) mIU/mL Total Protein 5.7 L (6.3-8.2) g/dL Albumin 2.8 L (3.5-5.0) g/dL RBC Folate (280 - 791) ng/mL Microbiology - Last 24 Hours (Table) 06/17/21 10:53 Blood Culture - Final Blood No Growth after 144 hours 06/17/21 10:53 Blood Culture - Final Blood No Growth after 144 hours Assessment and Plan (1) Leg wound, left Current Visit: Yes Status: Acute Code(s): S81.802A - UNSPECIFIED OPEN WOUND, LEFT LOWER LEG, INITIAL ENCOUNTER SNOMED Code(s): 528953049 Plan: 1patient with chronic nonhealing wound to the left lower extremity in this patient presented to hospital with increasing pain swelling redness and concern for cellulitis apparently the patient did have a chronic wound and has been exposed to antibiotic will need to cover for both gram-positive as well as gram- negative pathogen. 2MRI did not show any evidence of Osteomyelitis, patient surgical debridement has been put on hold because of cardiac condition 3patient left leg culture grew Citrobacter and Klebsiella, the patient is currently covered with cefepime which will be continued , Local wound care to continue per vascular surgery
[2021-06-24] MEDS: LACTOBACILLUS ACIDOPH & BULGAR 1 EACH PACKET PO SCH (12:28)
--- NOTE | 2021-06-24 13:18 | P.PN ---
Subjective Progress Note Date: 06/24/21 The patient is seen and she is sitting in the recliner chair and states she is doing well and denies of any neurological issues. She is accompanied by her daughter who agrees that she is doing well. Objective - Vital Signs Vital signs: Vital Signs Temp 98.5 F 06/24/21 11:20 Pulse 77 06/24/21 11:20 Resp 20 06/24/21 11:20 BP 140/68 06/24/21 11:20 Pulse Ox 94 L 06/24/21 11:20 Intake & Output 06/23/21 06/24/21 06/24/21 18:59 06:59 18:59 Intake Total 480 200 Output Total 550 1925 1200 Balance -70 -1925 -1000 Intake: Oral 480 200 Output: Urine 550 1925 1200 Other: Voiding Method Indwelling Catheter Indwelling Catheter Indwelling Catheter # Bowel Movements 1 - Exam GENERAL: The patient is lying in bed and is not in acute distress. NEUROLOGICAL: Higher mental function: The patient is awake, alert, oriented to self, place and time. Patient is following commands. No aphasia and no neglect. Cranial nerves: The pupils are round, equal and reactive to light and accommodation. Visual acuña are full to confrontation throughout. Extraocular movement is intact no nystagmus is noted. Facial sensation is normal to touch throughout. The facial strength is normal throughout. Tongue is midline and moved [id number] without any difficulty. No dysarthria is noted. Shoulder shrug is normal bilaterally. Motor: The strength is limited over the left lower extremity because wound and has antigravity. Otherwise 5 over 5 throughout. Normal tone and bulk. Cerebellum: Normal finger to nose bilaterally. Sensation: Sensation is normal to touch throughout. WORK-UP: Lipid panel as triglyceride of 109, cholesterol 129, LDL 64 and HDL 43. TSH is 1.650. Vitamin B12 is 1305. Serum folate is 8.90 Hemoglobin A1c is 8.5. Urinalysis negative for urinary tract infection 2-D echo was reported as left ventricular size is normal. Mild concentric left ventricle hypertrophy. Ejection fraction of 40-45%. Apical left ventricle wall motion is hypokinetic at different regions. Left atrium is mildly dilated. Mild to moderate tricuspid regurgitation. Moderate pulmonary hypertension. CT of the head was done which is reported as age-related atrophic and chronic small vessel ischemic change without acute intracranial process seen at this time. I personally reviewed the CT of the head there is no acute subacute ischemia there is no truncal normal hemorrhage. Patient has generalized atrophy appropriate for her age. CT angiography of the head and neck is reported that the neck has moderate pr oximal left ICA stenosis about 50% and mild on the right. Mild to moderate bilateral pleural effusion. If you septal lines suggest pulmonary vascular congestion. While the CT angiography of the head is reported as markedly the diminutive probably severely stenotic P1 segment left IAIN. Limited v visualization to nonvisualization of P2 segment and more distal left KETTLE OPERATOR could reflect sequela of severe stenosis or occlusion. Possible tiny 2 mm saccular aneurysm projecting anteriorly from the left KETTLE OPERATOR at the expected takeoff of the posture from indicating artery. Moderate to severe irregular alpha sclerotic stenosis throughout the left carotid siphons including the cavernous and supraclinoid portions. Moderate irregular of his chronic stenosis throughout the right carotid siphons. Moderate focal stenosis midsegment of the basilar artery. Additional moderate focal stenosis a 3 segment left IAIN. MR the brain is reported as no MRI evidence of recent infarct. Mild to moderate diffuse cervical atrophy and moderate chronic small vessel ischemic change with interval degenerative progression from 2011. I personally reviewed the MRI and there is no acute subacute ischemic stroke. - Labs CBC & Chem 7: 06/24/21 08:05 06/24/21 08:05 Labs: Abnormal Lab Results - Last 24 Hours (Table) 06/22/21 06/22/21 06/23/21 Range/Units 10:02 10:02 16:57 RBC (3.80-5.40) m/uL Hgb (11.4-16.0) gm/dL Hct (34.0-46.0) % MCHC (31.0-37.0) g/dL Plt Count (150-450) k/uL Sodium (137-145) mmol/L Chloride (98-107) mmol/L BUN (7-17) mg/dL Creatinine (0.52-1.04) mg/dL POC Glucose (mg/dL) 315 H (75-99) mg/dL Erythropoietin 69.15 H (2.00-30.00) mIU/mL Total Protein (6.3-8.2) g/dL Albumin (3.5-5.0) g/dL RBC Folate 1,050 H (280 - 791) ng/mL 03/15/22 03/16/22 03/16/22 Range/Units 20:25 06:19 08:05 RBC 2.45 L (3.80-5.40) m/uL Hgb 7.2 L (11.4-16.0) gm/dL Hct 24.2 L (34.0-46.0) % MCHC 29.8 L (31.0-37.0) g/dL Plt Count 469 H (150-450) k/uL Sodium (137-145) mmol/L Chloride (98-107) mmol/L BUN (7-17) mg/dL Creatinine (0.52-1.04) mg/dL POC Glucose (mg/dL) 251 H 71 L (75-99) mg/dL Erythropoietin (2.00-30.00) mIU/mL Total Protein (6.3-8.2) g/dL Albumin (3.5-5.0) g/dL RBC Folate (280 - 791) ng/mL 06/24/21 06/24/21 Range/Units 08:05 11:58 RBC (3.80-5.40) m/uL Hgb (11.4-16.0) gm/dL Hct (34.0-46.0) % MCHC (31.0-37.0) g/dL Plt Count (150-450) k/uL Sodium 136 L (137-145) mmol/L Chloride 108 H (98-107) mmol/L BUN 23 H (7-17) mg/dL Creatinine 1.48 H (0.52-1.04) mg/dL POC Glucose (mg/dL) 232 H (75-99) mg/dL Erythropoietin (2.00-30.00) mIU/mL Total Protein 5.7 L (6.3-8.2) g/dL Albumin 2.8 L (3.5-5.0) g/dL RBC Folate (280 - 791) ng/mL Microbiology - Last 24 Hours (Table) 06/17/21 10:53 Blood Culture - Final Blood No Growth after 144 hours 06/17/21 10:53 Blood Culture - Final Blood No Growth after 144 hours Assessment and Plan Assessment: Probable TIA of Aphasia and dysarthria especiall During this event per nurse patient had run of A-fib. Cannot rule out only due to metabolic and septic encephalopathy---today is drastically better. Metabolic encephalopathy and septic encephalopathy---resolved New onset paroxysmal A-fib Intracranial atherosclerosis NSTEMI Episode of hypoglyecemia (as low as 60) Episodes of hypotensive during this admission Acute kidney insufficiency Left lower extremity ulcer and felt had sepsis. Brittle Diabetes Uncontrolled DM (HbA1c 8.5) Hypertension and during this admission has episodes of hypotensive episodes. Sevee peripheral vascular disease History of CAD s/p stent Plan: MR the brain is reported as no MRI evidence of recent infarct. Mild to moderate diffuse cervical atrophy and moderate chronic small vessel ischemic change with interval degenerative progression from 2011. I personally reviewed the MRI and there is no acute subacute ischemic stroke. Patient is on aspirin 81 mg daily and ELiquis 5mg bid. On Lipitor 80 mg daily at bedtime daily. Every 4 neuro checks Consulted PT, OT and WEAPONS SPECIALIST Continue cardiac monitoring Cardiology is on board ID team is on board Vascular surgery team is on board Please avoid any hypotensive and hypoglycemic episode will defer the management to the primary team We'll defer the rest of the medical management to the primary team For DVT prophylaxis the patient is on Eliquis. Recommend the patient to follow-up with neurologist within 1-2 weeks as outpatient. The plan was discussed with the patient and her daughter who is at bedside. There is no further neurological workup. Neurology will sign off. Please notify neurology if any further concerns. Raji Comer M.D. Neuro-hospital Time with Patient: Less than 30
--- NOTE | 2021-06-24 13:33 | CDI ---
Documentation Clarification Form Date: 06/24/2021 01:04:28 PM From: Mehreen Moss RN, CCDS Admit Date: 06/17/2021 01:16:00 PM Patient Name: Becky Barnes Visit Number: [id number] Discharge Date: ATTENTION: The Clinical Documentation Specialists (CDI) and [facility] Coding Staff appreciate your assistance in clarifying documentation. Please respond to the clarification below the line at the bottom and electronically sign. The CDI & [facility] Coding staff will review the response and follow-up if needed. Please note: Queries are made part of the Legal Health Record. If you have any questions, please contact the author of this message via ITS. Dr. Rosangela Rodriguez There is documentation of a left leg ulcer in the ED assessment H/P and consult. Additional specificity regarding the etiology and severity] of the wound is requested. 06/18 Nursing wound care assessment: Left calf pressure injury staging: Unstageable, margins-indistinct, Drainage-Moderate, Odor-Foul Patient history/risk factors: Diabetes Mellitus Type II, Hypertension, Peripheral vascular occlusive disease, Diabetic neuropathy CAD Clinical Indicators: 80-year-old female present with infected left leg ulcer and severe pain and tenderness. She has been seen and treated at the wound care center. Wound assessment: Medial left leg 7 x6 cm deep with necrotic tissue and pus surrounding cellulitis and edema. 06/17 Labs: WBC 9.1, HGB 8.6, HCT 28.4, BUN 65, CR 1.38, Lactic acid 6.1 06/17 Wound culture: Citrobacter and Klebsiella Treatment: Cefepime HCL 2 GM IVPB Q 12 HRS (06/17-06/24) Monitor BS, Novolog Scale coverage ACHS Vancomycin 1500 MG IVPB Once, PTD (06/17-06/20) IS Consults: Chronic nonhealing wound to the left lower extremity, presented with increasing pain swelling redness and concern for cellulitis. Please clarify the etiology and severity of the wound: Etiology: [ ] Non-pressure chronic ulcer due to diabetes [ ] Non-pressure chronic ulcer due to arterial insufficiency [ x ] Non-pressure chronic ulcer due to venous insufficiency [ ] Non-pressure chronic ulcer due to trauma [ ] Other, Please specify [ ] Unable to determine Severity: [ ] Limited to breakdown of skin [ x] With fat layer exposed [ ] With necrosis of muscle [ ] With necrosis of bone [ ] Other, Please specify [ ] Unable to determine (Template Last Revised: June 2020) MTDD
--- NOTE | 2021-06-24 13:50 | P.PN ---
Subjective Progress Note Date: 06/24/21 Principal diagnosis: anemia In f/u today pt is seen briefly, no fever or bleeding. Objective - Vital Signs Vital signs: Vital Signs Temp 98.5 F 06/24/21 11:20 Pulse 77 06/24/21 11:20 Resp 20 06/24/21 11:20 BP 140/68 06/24/21 11:20 Pulse Ox 94 L 06/24/21 11:20 Intake & Output 06/23/21 06/24/21 06/24/21 18:59 06:59 18:59 Intake Total 480 200 Output Total 550 1925 1200 Balance -70 -1925 -1000 Intake: Oral 480 200 Output: Urine 550 1925 1200 Other: Voiding Method Indwelling Catheter Indwelling Catheter Indwelling Catheter # Bowel Movements 1 - Constitutional General appearance: Present: cooperative, no acute distress, obese - EENT Eyes: Present: anicteric sclerae, EOMI ENT: Present: hearing grossly normal - Respiratory Details: resp increased with activity - Musculoskeletal Musculoskeletal: Present: generalized weakness - Psychiatric Psychiatric: Present: A&O x's 3, appropriate affect, intact judgment & insight - Labs CBC & Chem 7: 06/24/21 08:05 06/24/21 08:05 Labs: Abnormal Lab Results - Last 24 Hours (Table) 06/22/21 06/23/21 06/23/21 Range/Units 10:02 16:57 20:25 RBC (3.80-5.40) m/uL Hgb (11.4-16.0) gm/dL Hct (34.0-46.0) % MCHC (31.0-37.0) g/dL Plt Count (150-450) k/uL Sodium (137-145) mmol/L Chloride (98-107) mmol/L BUN (7-17) mg/dL Creatinine (0.52-1.04) mg/dL POC Glucose (mg/dL) 315 H 251 H (75-99) mg/dL Erythropoietin 69.15 H (2.00-30.00) mIU/mL Total Protein (6.3-8.2) g/dL Albumin (3.5-5.0) g/dL 06/24/21 06/24/21 06/24/21 Range/Units 06:19 08:05 08:05 RBC 2.45 L (3.80-5.40) m/uL Hgb 7.2 L (11.4-16.0) gm/dL Hct 24.2 L (34.0-46.0) % MCHC 29.8 L (31.0-37.0) g/dL Plt Count 469 H (150-450) k/uL Sodium 136 L (137-145) mmol/L Chloride 108 H (98-107) mmol/L BUN 23 H (7-17) mg/dL Creatinine 1.48 H (0.52-1.04) mg/dL POC Glucose (mg/dL) 71 L (75-99) mg/dL Erythropoietin (2.00-30.00) mIU/mL Total Protein 5.7 L (6.3-8.2) g/dL Albumin 2.8 L (3.5-5.0) g/dL 06/24/21 Range/Units 11:58 RBC (3.80-5.40) m/uL Hgb (11.4-16.0) gm/dL Hct (34.0-46.0) % MCHC (31.0-37.0) g/dL Plt Count (150-450) k/uL Sodium (137-145) mmol/L Chloride (98-107) mmol/L BUN (7-17) mg/dL Creatinine (0.52-1.04) mg/dL POC Glucose (mg/dL) 232 H (75-99) mg/dL Erythropoietin (2.00-30.00) mIU/mL Total Protein (6.3-8.2) g/dL Albumin (3.5-5.0) g/dL Microbiology - Last 24 Hours (Table) 06/17/21 10:53 Blood Culture - Final Blood No Growth after 144 hours 06/17/21 10:53 Blood Culture - Final Blood No Growth after 144 hours Assessment and Plan (1) Normocytic normochromic anemia Narrative/Plan: Anemia started to present 03/31, has been persistent and progressive. She has had chronic infection, been on termite exterminator abx and has CKD, all of which can contribute to anemia. Saturation is low. Nephrology has ordered iron. Other labs ordered to complete anemia work up did not reveal any other deficiencies. Hgb has not been so low as to need transfusion just yet. Stable today. CBC monitoring. SPEP ordered Current Visit: Yes Status: Acute Priority: High Code(s): D64.9 - ANEMIA, UNSPECIFIED SNOMED Code(s): 08216315 Plan: attests: I have seen and examined pt, performed H&P, developed impression and plan of care, discussed with dictator. I agree with dictation, documented as a scribe.
--- NOTE | 2021-06-24 14:09 | P.PN ---
Subjective The patient is an 80-year-old female patient with CAD with prior PCI of the mid LAD in 2018, type 2 diabetes, hypertension, dyslipidemia, peripheral vascular disease, prior tobacco use. She follows in the office with Dr. Hsu. Patient admitted to the hospital with lower extremities cellulitis and we consulted to see the patient for shortness of breath patient she was ruled in for acute coronary event. 06/22/2021 The initial plan is to pursue with a heart catheterization later on today but unfortunately the patient developed an episode of TIA/stroke. She underwent a computed tomography scan of the brain and that event continues to be in vestigated by the neurology service. The heart catheterization would be canceled. When she was seen this morning she was asymptomatic in time of chest pain or chest discomfort and she was alert and oriented 3. Currently she is on heparin IV. She did have an episode of irregular rhythm seems to be in atrial fibrillation which is known to her. The echo revealed impaired LV function was EF around 40% with evidence of wall motion abnormality is concerning for severe underlying coronary artery disease. 06/24/2021 Patient seen and examined at bedside, no acute distress. She is experiencing shortness of breath and IV Lasix was started. She denies any chest pain. Te lemetry reviewed patient in sinus mechanism. She has been started on anticoagulation with Eliquis. Chest x-ray revealed bilateral pleural effusions. MRI of the brain revealed no evidence of recent infarct. Moderate chronic small vessel ischemic change. GENERAL: Well-appearing, well-nourished and in no acute distress. NECK: Supple without JVD or thyromegaly. LUNGS: Breath sounds wheezing bilaterally, mild crackles in the bases auscultation bilaterally. Respiration equal and unlabored. No wheezes, rales or rhonchi. HEART: Regular rate and rhythm without murmurs, rubs or gallops. S1 and S2 h eard. EXTREMITIES: Normal range of motion, mild bilateral lotion edema. No clubbing or cyanosis. Peripheral pulses intact. ASSESSMENT New-onset paroxysmal atrial fibrillation, now back in sinus mechanism NSTEMI Cardiomyopathy with an EF of 4045 percent, unclear if ischemic versus nonischemic at this time Possible TIA, evaluated by neurology, patient with symptoms of Aphasia and dysarthria on 06/22/21. CAD with prior PCI of the mid LAD in 2018 Type 2 diabetes Hypertension Dyslipidemia Peripheral vascular disease Prior tobacco use PLAN We do not plan on doing a cardiac catheterization this admission due to anemia, kidney disease and patient without symptoms of chest pain Agree with IV Lasix, monitor intake and output, renal function and electrolytes. We will recommend anticoagulation,and patient started on Eliquis 5mg BID Continue aspirin, statin, continue beta gil Further recommendations based on clinical course Nurse Practitioner note has been reviewed, I agree with a documented findings and plan of care. Patient was seen and examined. Objective - Vital Signs Vital signs: Vital Signs Temp 98.5 F 06/24/21 11:20 Pulse 77 06/24/21 11:20 Resp 20 06/24/21 11:20 BP 140/68 06/24/21 11:20 Pulse Ox 94 L 06/24/21 11:20 Intake & Output 06/23/21 06/24/21 06/24/21 18:59 06:59 18:59 Intake Total 480 200 Output Total 550 1925 1200 Balance -70 -1925 -1000 Intake: Oral 480 200 Output: Urine 550 1925 1200 Other: Voiding Method Indwelling Catheter Indwelling Catheter Indwelling Catheter # Bowel Movements 1 - Labs CBC & Chem 7: 06/24/21 08:05 06/24/21 08:05 Labs: Abnormal Lab Results - Last 24 Hours (Table) 06/22/21 06/23/21 06/23/21 Range/Units 10:02 16:57 20:25 RBC (3.80-5.40) m/uL Hgb (11.4-16.0) gm/dL Hct (34.0-46.0) % MCHC (31.0-37.0) g/dL Plt Count (150-450) k/uL Sodium (137-145) mmol/L Chloride (98-107) mmol/L BUN (7-17) mg/dL Creatinine (0.52-1.04) mg/dL POC Glucose (mg/dL) 315 H 251 H (75-99) mg/dL Erythropoietin 69.15 H (2.00-30.00) mIU/mL Total Protein (6.3-8.2) g/dL Albumin (3.5-5.0) g/dL 06/24/21 06/24/21 06/24/21 Range/Units 06:19 08:05 08:05 RBC 2.45 L (3.80-5.40) m/uL Hgb 7.2 L (11.4-16.0) gm/dL Hct 24.2 L (34.0-46.0) % MCHC 29.8 L (31.0-37.0) g/dL Plt Count 469 H (150-450) k/uL Sodium 136 L (137-145) mmol/L Chloride 108 H (98-107) mmol/L BUN 23 H (7-17) mg/dL Creatinine 1.48 H (0.52-1.04) mg/dL POC Glucose (mg/dL) 71 L (75-99) mg/dL Erythropoietin (2.00-30.00) mIU/mL Total Protein 5.7 L (6.3-8.2) g/dL Albumin 2.8 L (3.5-5.0) g/dL 06/24/21 Range/Units 11:58 RBC (3.80-5.40) m/uL Hgb (11.4-16.0) gm/dL Hct (34.0-46.0) % MCHC (31.0-37.0) g/dL Plt Count (150-450) k/uL Sodium (137-145) mmol/L Chloride (98-107) mmol/L BUN (7-17) mg/dL Creatinine (0.52-1.04) mg/dL POC Glucose (mg/dL) 232 H (75-99) mg/dL Erythropoietin (2.00-30.00) mIU/mL Total Protein (6.3-8.2) g/dL Albumin (3.5-5.0) g/dL Microbiology - Last 24 Hours (Table) 06/17/21 10:53 Blood Culture - Final Blood No Growth after 144 hours 06/17/21 10:53 Blood Culture - Final Blood No Growth after 144 hours
--- NOTE | 2021-06-24 14:13 | P.PN ---
Subjective Progress Note Date: 06/24/21 Principal diagnosis: Foot ulcer 80-year-old female, seen in the emergency department. She presented to the emergency room with a chief complaint of severe left leg pain with infected ulcer. She developed this ulcer and lost January 2021. The patient has had debridement, by Dr. Triana and Dr. Herrera first one on April 2 one on May. The patient comes into the emergency room, because of weakness. She has a low blood pressure. She is a lactic acid is 6. The primary service was concerned about sepsis. The patient is also complaining about left foot pain, numbness in her left foot, and elevated blood sugar. The ulcer on the medial left leg, has been present for many months, and has gotten worse. There is no fever or chills. The patient has a history of diabetes, hyperlipidemia, hypertension, GERD, osteoarthritis, peripheral vascular occlusive disease, di abetic neuropathy, CAD, with previous heart catheterization and stent placement. White count 10.3, hemoglobin 8.7, hematocrit 27.4, and platelet count 520,000. Sodium 135, potassium 4.9, chlorides 98, CO2 22, anion gap 15, BUN 69, and creatinine 1.66. Lactic acid is 6.1. Urine is light yellow and cloudy. There is moderate blood. There is 4+ glucose. There is many bacteria. The patient is not having any urinary tract symptoms. X-rays of the leg and foot, showed only soft tissue changes. The patient is received Rocephin and vancomycin in the ER. Blood pressure has been only in the mid 70s, systolic. She is being transferred to ICU.discussed with the bender machine operator Dr. Comer Interval history: 06/19 Patient was examined at the bedside. Patient was transferred out of the ICU overnight Patient is complaining of shortness of breath and a chest x-ray showed interstitial edema. Patient was given a one-time dose of Lasix 40 mg IV push by pulmonary service. Patient denies any chest pain. Pending cardiology consultation 06/20 patient surgery was canceled today due to worsening shortness of breath and elevated troponin. VQ scan was low probability for PE. Cardiology was notified about positive troponin. 06/21 patient seen and examined at the bedside. She still complaining of shortness of breath but she denies any chest pain. Chest x-ray showed congestive heart failure patient's been getting Lasix. She is complaining of constipation. Otherwise no acute changes overnight 06/22: Patient had result code stroke was activated today. Per the patient's nurse today around shift change the patient was having the word salad and was not making sense that she was having slurred speech last normal was around 6 this a.m. today. As a result stroke code was activated. CT of the head was done which is reported as age-related atrophic and chronic small vessel ischemic change without acute intracranial process seen at this time. I personally reviewed the CT of the head there is no acute subacute ischemia there is no truncal normal hemorrhage. Patient has generalized atrophy appropriate for her age. CT angiography of the head and neck is reported that the neck has moderate proximal left ICA stenosis about 50% and mild on the right. Mild to moderate bilateral pleural effusion. If you septal lines suggest pulmonary vascular congestion. While the CT angiography of the head is reported as markedly the diminutive probably severely stenotic P1 segment left IAIN. Limited v visualization to nonvisualization of P2 segment and more distal left [employer]EL[employer] could reflect sequela of severe stenosis or occlusion. Possible tiny 2 mm saccular aneurysm projecting anteriorly from the left [employer]ELOPER at the expected takeoff of the posture from indicating artery. Moderate to severe irregular alpha sclerotic stenosis throughout the left carotid siphons including the cavernous and supra clinoid portions. Moderate irregular of his chronic stenosis throughout the right carotid siphons. Moderate focal stenosis midsegment of the basilar artery. Additional moderate focal stenosis a 3 segment left IAIN. Per the patient's nurse the stroke attended all call was involved and no IV TPA since the patient was on IV heparin drip and the risk outweighed the benefit. Per the patient nurse during this event today at patient had a proximal atrial fibrillation which is new. 06/23: Patient currently doing well, she is mainly complaining from fatigue due to lack of sleep. In addition she has been having double vision and shortness of breath. Has a chronic feet pain, unchanged. 06/24: Was feeling like she was choking this am. Recovered after she sipped water. Slept well. She is feeling overall better. Objective - Vital Signs Vital signs: Vital Signs Temp 98.5 F 06/24/21 11:20 Pulse 77 06/24/21 11:20 Resp 20 06/24/21 11:20 BP 140/68 06/24/21 11:20 Pulse Ox 94 L 06/24/21 11:20 Intake & Output 06/23/21 06/24/21 06/24/21 18:59 06:59 18:59 Intake Total 480 200 Output Total 550 1925 Balance -70 -192 200 Intake: Oral 480 200 Output: Urine 550 1925 Other: Voiding Method Indwelling Catheter Indwelling Catheter Indwelling Catheter # Bowel Movements 1 - Exam General: non toxic, no distress, appears at stated age Derm: warm, dry Head: atraumatic, normocephalic, symmetric Eyes: EOMI, no lid lag, anicteric sclera Mouth: no lip lesion, mucus membranes moist Cardiovascular: S1S2 irregularly irregular Lungs: CTA bilateral, no rhonchi, no rales , no accessory muscle use Abdominal: soft, nontender to palpation, no guarding, no appreciable organomegaly Ext: Left leg ulcer 7 x 6 cm deep with necrotic tissue and pus surrounding cellulitis and edema. Tender to palpation Neuro: CN II-XI grossly intact, no focal neuro deficits Psych: Alert, oriented, appropriate affect - Labs CBC & Chem 7: 06/24/21 08:05 06/24/21 08:05 Labs: Abnormal Lab Results - Last 24 Hours (Table) 06/22/21 06/22/21 06/23/21 Range/Units 10:02 10:02 16:57 RBC (3.80-5.40) m/uL Hgb (11.4-16.0) gm/dL Hct (34.0-46.0) % MCHC (31.0-37.0) g/dL Plt Count (150-450) k/uL Sodium (137-145) mmol/L Chloride (98-107) mmol/L BUN (7-17) mg/dL Creatinine (0.52-1.04) mg/dL POC Glucose (mg/dL) 315 H (75-99) mg/dL Erythropoietin 69.15 H (2.00-30.00) mIU/mL Total Protein (6.3-8.2) g/dL Albumin (3.5-5.0) g/dL RBC Folate 1,050 H (280 - 791) ng/mL 06/23/21 06/24/21 06/24/21 Range/Units 20:25 06:19 08:05 RBC 2.45 L (3.80-5.40) m/uL Hgb 7.2 L (11.4-16.0) gm/dL Hct 24.2 L (34.0-46.0) % MCHC 29.8 L (31.0-37.0) g/dL Plt Count 469 H (150-450) k/uL Sodium (137-145) mmol/L Chloride (98-107) mmol/L BUN (7-17) mg/dL Creatinine (0.52-1.04) mg/dL POC Glucose (mg/dL) 251 H 71 L (75-99) mg/dL Erythropoietin (2.00-30.00) mIU/mL Total Protein (6.3-8.2) g/dL Albumin (3.5-5.0) g/dL RBC Folate (280 - 791) ng/mL 06/24/21 06/24/21 Range/Units 08:05 11:58 RBC (3.80-5.40) m/uL Hgb (11.4-16.0) gm/dL Hct (34.0-46.0) % MCHC (31.0-37.0) g/dL Plt Count (150-450) k/uL Sodium 136 L (137-145) mmol/L Chloride 108 H (98-107) mmol/L BUN 23 H (7-17) mg/dL Creatinine 1.48 H (0.52-1.04) mg/dL POC Glucose (mg/dL) 232 H (75-99) mg/dL Erythropoietin (2.00-30.00) mIU/mL Total Protein 5.7 L (6.3-8.2) g/dL Albumin 2.8 L (3.5-5.0) g/dL RBC Folate (280 - 791) ng/mL Microbiology - Last 24 Hours (Table) 06/17/21 10:53 Blood Culture - Final Blood No Growth after 144 hours 06/17/21 10:53 Blood Culture - Final Blood No Growth after 144 hours Assessment and Plan Plan: #Infected left leg ulcer with severe sepsis -Patient was found to be hypotensive in the emergency room hypotension improved with IV fluids -Lactic acid 6.1--resolved -Patient was transferred out of ICU -S/p IV fluids resuscitation. -IV cefepime per ID -Wound culture--growing Citrobacter and capsula pneumoniae -Blood cultures ordered 2--negative to date -Vascular surgery cancelled debridement surgery on June 20 due to elevated troponin and CHF exacerbation, awaiting further plans by vascular. -MRI of the left Leg ruled out osteomyelitis and abscess showed evidence of cellulitis and myositis #New-onset A. fib with rapid ventricular response -Resume beta blockers per cardiology -Started eliquis d/w neuro #Acute Aphasia and dysarthria likely metabolic encephalopathy, no stroke on MRI -Neurology consulted -During this event per nurse patient had run of A-fib. -Vascular reconsulted Re CT angio head findings, no surgical interventions needed #Acute systolic CHF exacerbation -History of diastolic CHF. EF dropped to 4045% -Resumed on IV diuresis by nephrology. #NSTEMI #History coronary disease status post stent -Possibly type II secondary to demand ischemia -Resume beta blockers -2-D echo showed drop in EF 40-45% with apical anterior, lateral and inferior septal hypokinesis -Heart cath was canceled -Cardiology input appreciated #Severe peripheral vascular disease -Vascular surgery consulted #Severe lactic acidosis -Improved IV fluids -Discontinue metformin #Hypotension -Secondary to sepsis -Improved with IV fluids #Acute kidney injury -Nephrology -Most likely secondary to hypotension and prerenal azotemia possibly ATN -Renal ultrasound ruled out obstruction -Avoid nephrotoxic agents Dispo: likely rehab Anticipated discharge: Awaiting decisions by vascular whether to do wound debridement this admission or outpatient. Dr. Baron texted on perfect [employer].
[2021-06-24 16:49] LABS: Glucose,Whole Blood 164 mg/dL (75-99)
[2021-06-24] MEDS: LACTATED RINGERS 1,000 ML IV SCH (17:15)
[2021-06-24 19:51] LABS: Glucose,Whole Blood 343 mg/dL (75-99)
[2021-06-24] MEDS: FAMOTIDINE 20 MG TAB PO SCH (21:17)
[2021-06-24] MEDS: ATORVASTATIN 80 MG TAB PO SCH (21:17)
[2021-06-24] MEDS: MELATONIN 3 MG TABLET PO SCH (21:17)
[2021-06-24 23:04] LABS: Protein, Total 5.5 g/dL (6.2-8.2)
[2021-06-25 06:23] LABS: Glucose,Whole Blood 87 mg/dL (75-99)
[2021-06-25 07:29] LABS: Basophils # (A) 0.1 k/uL (0-0.2); Basophils % (A) 1 %; Eosinophils # (A) 0.7 k/uL (0-0.7); Eosinophils % (A) 6 %; HCT 25.3 % (34.0-46.0); HGB 7.8 gm/dL (11.4-16.0); Hypochromasia Marked; Lymphocytes % (A) 18 %; MCH 30.7 pg (25.0-35.0); MCV 98.9 fL (80.0-100.0); Macrocytosis Slight; Mean Platelet Volume 8.7; Monocytes # (A) 0.8 k/uL (0-1.0); Monocytes % (A) 7 %; Neutrophils # (A) 7.5 k/uL (1.3-7.7); Neutrophils % (A) 66 %; Platelet Count 443 k/uL (150-450); RBC 2.56 m/uL (3.80-5.40); RDW 15.9 % (11.5-15.5); WBC 11.4 k/uL (3.8-10.6)
[2021-06-25 07:55] LABS: Calcium 8.8 mg/dL (8.4-10.2); Magnesium 2.1 mg/dL (1.6-2.3); Potassium 4.9 mmol/L (3.5-5.1)
[2021-06-25 08:19] LABS: Free Kappa Lt Chain Qnt, Serum 4.14 mg/dL (0.33-1.94); Free Lambda Lt Chain Qnt, Seru 4.11 mg/dL (0.57-2.63)
[2021-06-25 08:34] LABS: Glucose,Whole Blood 171 mg/dL (75-99)
[2021-06-25] MEDS: INSULIN ASPART (NovoLOG) 100 UNIT/ML VIAL SQ SCH ×4 (08:42→22:28)
[2021-06-25] MEDS: LACTOBACILLUS ACIDOPH & BULGAR 1 EACH PACKET PO SCH (08:42)
[2021-06-25] MEDS: polyethylene glycoL 3350 17 GM POWD.PACK PO SCH (08:42)
[2021-06-25] MEDS: FUROSEMIDE 10 MG/ML 4 ML VIAL IV SCH (08:42)
[2021-06-25] MEDS: ACETAMINOPHEN TAB 500 MG TAB PO PRN ×2 (08:43→19:18)
[2021-06-25] MEDS: CYANOCOBALAMIN 500 MCG TAB PO SCH (08:43)
[2021-06-25] MEDS: FENOFIBRATE 160 MG TAB PO SCH (08:43)
[2021-06-25] MEDS: ASPIRIN 81 MG PO SCH (08:44)
[2021-06-25] MEDS: DOCUSATE 100 MG CAP PO SCH ×2 (08:44→22:28)
[2021-06-25] MEDS: APIXABAN 5 MG TAB PO SCH ×2 (08:44→22:28)
[2021-06-25] MEDS: bisacodyL 5 MG TABLET.DR PO PRN (08:44)
[2021-06-25] MEDS: PREGABALIN 75 MG CAP PO SCH ×2 (08:44→22:27)
[2021-06-25] MEDS: CHOLECALCIFEROL 25 MCG (1000 IU) TABLET PO SCH (08:44)
[2021-06-25] MEDS: ASCORBIC ACID 500 MG TAB PO SCH (08:44)
[2021-06-25] MEDS: METOPROLOL TARTRATE 12.5 MG TAB PO SCH ×2 (08:44→22:30)
[2021-06-25] MEDS: FERROUS SULFATE 325 MG TAB PO SCH (08:44)
[2021-06-25] MEDS: SODIUM HYPOCHLORITE 0.25% 480 ML BOT MISCELLANE SCH (08:52)
--- NOTE | 2021-06-25 09:18 | P.PN ---
Subjective Patient is seen in follow-up for acute kidney injury. Renal function stable. Sitting up in chair. Blood pressure controlled. Nonoliguric. Has a Triana catheter. Oral intake fair. Currently on 2 L nasal cannula. Vital signs are stable. General: Awake and alert. HEENT: Nasal cannula. LUNGS: Breath sounds decreased. HEART: Regular rhythm. ABDOMEN: Soft, no distention. EXTREMITITES: Trace edema. Objective - Vital Signs Vital signs: Vital Signs Temp 97.0 F L 06/25/21 00:00 Pulse 80 06/25/21 02:00 Resp 18 06/25/21 02:00 BP 107/72 06/25/21 00:00 Pulse Ox 99 06/25/21 08:29 Intake & Output 06/24/21 06/25/21 06/25/21 18:59 06:59 18:59 Intake Total 200 Output Total 1200 2110 Balance -1000 -2109 Intake: Oral 200 Output: Urine 1200 2110 Other: Voiding Method Indwelling Catheter Indwelling Catheter - Labs CBC & Chem 7: 06/25/21 07:11 06/25/21 07:11 Labs: Abnormal Lab Results - Last 24 Hours (Table) 06/24/21 06/24/21 06/24/21 Range/Units 08:05 11:58 16:46 WBC (3.8-10.6) k/uL RBC (3.80-5.40) m/uL Hgb (11.4-16.0) gm/dL Hct (34.0-46.0) % RDW (11.5-15.5) % BUN (7-17) mg/dL Creatinine (0.52-1.04) mg/dL Glucose (74-99) mg/dL POC Glucose (mg/dL) 232 H 164 H (75-99) mg/dL Total Protein (PEP) 5.5 L (6.2-8.2) g/dL Free [place] LC, Quant 4.14 H (0.33-1.94) mg/dL Free [place] LC, Quant 4.11 H (0.57-2.63) mg/dL 06/24/21 06/25/21 06/25/21 Range/Units 19:49 07:11 07:11 WBC 11.4 H (3.8-10.6) k/uL RBC 2.56 L (3.80-5.40) m/uL Hgb 7.8 L (11.4-16.0) gm/dL Hct 25.3 L (34.0-46.0) % RDW 15.9 H (11.5-15.5) % BUN 28 H (7-17) mg/dL Creatinine 1.42 H (0.52-1.04) mg/dL Glucose 67 L (74-99) mg/dL POC Glucose (mg/dL) 343 H (75-99) mg/dL Total Protein (PEP) (6.2-8.2) g/dL Free [place] LC, Quant (0.33-1.94) mg/dL Free [place]ambda LC, Quant (0.57-2.63) mg/dL 06/25/21 Range/Units 08:33 WBC (3.8-10.6) k/uL RBC (3.80-5.40) m/uL Hgb (11.4-16.0) gm/dL Hct (34.0-46.0) % RDW (11.5-15.5) % BUN (7-17) mg/dL Creatinine (0.52-1.04) mg/dL Glucose (74-99) mg/dL POC Glucose (mg/dL) 171 H (75-99) mg/dL Total Protein (PEP) (6.2-8.2) g/dL Free [place] LC, Quant (0.33-1.94) mg/dL Free [place]ambda LC, Quant (0.57-2.63) mg/dL Assessment and Plan Plan: Assessment: 1. Acute kidney injury mostly prerenal secondary to cardiorenal syndrome and hypotension. Cortisol level 23. UA fairly benign. No hydronephrosis noted on kidney ultrasound. Creatinine stable at 1.42 today. Patient received IV contrast on 06/22/2021 for CTA. 2. Acute on chronic systolic CHF with ejection fraction of 40-45%. 3. Volume overload. Improving with diuresis. 4. Metabolic acidosis secondary to acute kidney injury and lactic acidosis. Improved. 5. Anemia. Iron deficiency noted - s/p IV iron. Hematology following. On Aranesp. 6. Rule out chronic kidney disease. Creatinine in June 2019 was 1.23 and 1.6 as of 10/22/2020. It was as low as 1.05 this admission. 7. Left lower extremity wound/cellulitis. s/p antibiotics. 8. Diabetes mellitus. 9. History of coronary disease status post cardiac stenting in the past. 10. Questionable CVA. Neurology following. No recent infarct noted on MRI. Plan: Maintain IV Lasix. Avoid nephrotoxins. Continue to monitor renal function and urine output. Monitor for contrast-induced acute kidney injury.
[2021-06-25] MEDS: INSULIN DETEMIR (LEVEMIR) 100 UNIT/ML SYR SQ SCH (10:08)
[2021-06-25] MEDS: PANTOPRAZOLE 40 MG TABLET PO SCH (10:09)
--- NOTE | 2021-06-25 11:04 | P.PN ---
Subjective Progress Note Date: 06/25/21 Patient was seen and examined sitting up in reclining chair. She is without any acute changes through the night.states her pain has been better in the left lower extremity. She's been afebrile. Objective - Vital Signs Vital signs: Vital Signs Temp 97.0 F L 06/25/21 00:00 Pulse 80 06/25/21 02:00 Resp 18 06/25/21 02:00 BP 107/72 06/25/21 00:00 Pulse Ox 99 06/25/21 08:29 Intake & Output 06/24/21 06/25/21 06/25/21 18:59 06:59 18:59 Intake Total 200 Output Total 1200 2110 Balance -999 -2109 Intake: Oral 200 Output: Urine 1200 2110 Other: Voiding Method Indwelling Catheter Indwelling Catheter - Exam General appearance: The patient is alert, oriented, appears in no acute distress. HET: Head is normocephalic and atraumatic. Neck: Supple. Extremities: Bilateral lower extremities warm to the touch. Bilateral lower extremity edema. Left medial calf wound with pink tissue, bleeding with dressing change with minimal areas along the skin with some necrotic tissue. No odor. Neurological: No focal deficits. Strength and sensation are grossly intact. - Labs CBC & Chem 7: 06/25/21 07:11 06/25/21 07:11 Labs: Abnormal Lab Results - Last 24 Hours (Table) 06/24/21 06/24/21 06/24/21 Range/Units 08:05 11:58 16:46 WBC (3.8-10.6) k/uL RBC (3.80-5.40) m/uL Hgb (11.4-16.0) gm/dL Hct (34.0-46.0) % RDW (11.5-15.5) % BUN (7-17) mg/dL Creatinine (0.52-1.04) mg/dL Glucose (74-99) mg/dL POC Glucose (mg/dL) 232 H 164 H (75-99) mg/dL Total Protein (PEP) 5.5 L (6.2-8.2) g/dL Free [place] LC, Quant 4.14 H (0.33-1.94) mg/dL Free [place] LC, Quant 4.11 H (0.57-2.63) mg/dL 06/24/21 06/25/21 06/25/21 Range/Units 19:49 07:11 07:11 WBC 11.4 H (3.8-10.6) k/uL RBC 2.56 L (3.80-5.40) m/uL Hgb 7.8 L (11.4-16.0) gm/dL Hct 25.3 L (34.0-46.0) % RDW 15.9 H (11.5-15.5) % BUN 28 H (7-17) mg/dL Creatinine 1.42 H (0.52-1.04) mg/dL Glucose 67 L (74-99) mg/dL POC Glucose (mg/dL) 343 H (75-99) mg/dL Total Protein (PEP) (6.2-8.2) g/dL Free [place] LC, Quant (0.33-1.94) mg/dL Free [place] LC, Quant (0.57-2.63) mg/dL 06/25/21 Range/Units 08:33 WBC (3.8-10.6) k/uL RBC (3.80-5.40) m/uL Hgb (11.4-16.0) gm/dL Hct (34.0-46.0) % RDW (11.5-15.5) % BUN (7-17) mg/dL Creatinine (0.52-1.04) mg/dL Glucose (74-99) mg/dL POC Glucose (mg/dL) 171 H (75-99) mg/dL Total Protein (PEP) (6.2-8.2) g/dL Free [place] LC, Quant (0.33-1.94) mg/dL Free [place]ambda LC, Quant (0.57-2.63) mg/dL Assessment and Plan Assessment: 1. Nonhealing left lower extremity wound 2. Altered mental status changes, likely TIA 3. Elevated troponins 4. Atrial fibrillation 5. Right ICA stenosis 25%, 50% left ICA stenosis per CT angiogram 6. History of diabetes mellitus with diabetic neuropathy 7. History of coronary artery disease status post heart catheterization and stent Plan: 1. Dakin's solution half-strength wet-to-dry daily 2. Elevate lower extremities 3. Apply Mediboot heel protectors to lower extremity 4. Antibiotics per recommendations from infectious disease 5. No plans on any surgical intervention at this time, recommend outpatient follow up with wound clinic. If surgical debridement is needed can do as an outpatient. Thank you for this consultation, patient is cleared for discharge from vascular surgery. The impression and plan of care has been dictated as directed. Dr. Triana I performed a history and examination of this patient, discussed the same with the dictator. I agree with the dictator's note ,documented as a scribe. Any additional findings or plans will be noted.
[2021-06-25 11:48] LABS: Glucose,Whole Blood 232 mg/dL (75-99)
--- NOTE | 2021-06-25 13:28 | P.PN ---
Subjective The patient is an 80-year-old female patient with CAD with prior PCI of the mid LAD in 2018, type 2 diabetes, hypertension, dyslipidemia, peripheral vascular disease, prior tobacco use. She follows in the office with Dr. Hsu. Patient admitted to the hospital with lower extremities cellulitis and we consulted to see the patient for shortness of breath patient she was ruled in for acute coronary event. 06/22/2021 The initial plan is to pursue with a heart catheterization later on today but unfortunately the patient developed an episode of TIA/stroke. She underwent a computed tomography scan of the brain and that event continues to be in vestigated by the neurology service. The heart catheterization would be canceled. 06/25/2021 Patient seen and examined at bedside, no acute distress. She is experiencing s hortness of breath and LE edema. IV Lasix started yesterday 06/24, Patient with 3.3L urine output over 24 hours. . She denies any chest pain. Telemetry reviewed patient in sinus mechanism. She has been started on anticoagulation with Eliquis. MRI of the brain revealed no evidence of recent infarct. Moderate chronic small vessel ischemic change. Sodium 137, potassium 4.9, BUN 28, serum creatinine 1.4 GENERAL: Well-appearing, well-nourished and in no acute distress. NECK: Supple without JVD or thyromegaly. LUNGS: Breath sounds wheezing bilaterally, mild crackles in the bases auscultation bilaterally. Respiration equal and unlabored. No wheezes, rales or rhonchi. HEART: Regular rate and rhythm without murmurs, rubs or gallops. S1 and S2 heard. EXTREMITIES: Normal range of motion, mild bilateral lotion edema. No clubbing or cyanosis. Peripheral pulses intact. ASSESSMENT New-onset paroxysmal atrial fibrillation, now back in sinus mechanism NSTEMI Cardiomyopathy with an EF of 4045 percent, unclear if ischemic versus nonischemic at this time Possible TIA, evaluated by neurology, patient with symptoms of Aphasia and dysarthria on 06/22/21. CAD with prior PCI of the mid LAD in 2018 Type 2 diabetes Hypertension Dyslipidemia Peripheral vascular disease Prior tobacco use Nonhealing left lower extremity wound, vascular evaluated patient no plans of surgical intervention inpatient PLAN Monitor on IV Lasix for additional 24 hours, monitor intake and output, renal function and electrolytes. Continue Eliquis 5mg BID Continue aspirin, statin, continue beta gil We do not plan on doing a cardiac catheterization this admission due to anemia, kidney disease and patient without symptoms of chest pain Recommend physical therapy for patient Further recommendations based on clinical course Nurse Practitioner note has been reviewed, I agree with a documented findings and plan of care. Patient was seen and examined. Objective - Vital Signs Vital signs: Vital Signs Temp 97.9 F 06/25/21 08:00 Pulse 84 06/25/21 08:00 Resp 18 06/25/21 08:00 BP 126/74 06/25/21 08:00 Pulse Ox 99 06/25/21 08:29 Intake & Output 06/24/21 06/25/21 06/25/21 18:59 06:59 18:59 Intake Total 200 510 Output Total 1200 2110 Balance -1000 -211 510 Weight 83.007 kg Intake: IV 10 Invasive Line 9 10 Oral 200 500 Output: Urine 1200 2110 Other: Voiding Method Indwelling Catheter Indwelling Catheter Indwelling Catheter - Labs CBC & Chem 7: 06/25/21 07:11 06/25/21 07:11 Labs: Abnormal Lab Results - Last 24 Hours (Table) 06/24/21 06/24/21 06/24/21 Range/Units 08:05 16:46 19:49 WBC (3.8-10.6) k/uL RBC (3.80-5.40) m/uL Hgb (11.4-16.0) gm/dL Hct (34.0-46.0) % RDW (11.5-15.5) % BUN (7-17) mg/dL Creatinine (0.52-1.04) mg/dL Glucose (74-99) mg/dL POC Glucose (mg/dL) 164 H 343 H (75-99) mg/dL Total Protein (PEP) 5.5 L (6.2-8.2) g/dL Free [place] LC, Quant 4.14 H (0.33-1.94) mg/dL Free [place] LC, Quant 4.11 H (0.57-2.63) mg/dL 06/25/21 06/25/21 06/25/21 Range/Units 07:11 07:11 08:33 WBC 11.4 H (3.8-10.6) k/uL RBC 2.56 L (3.80-5.40) m/uL Hgb 7.8 L (11.4-16.0) gm/dL Hct 25.3 L (34.0-46.0) % RDW 15.9 H (11.5-15.5) % BUN 28 H (7-17) mg/dL Creatinine 1.42 H (0.52-1.04) mg/dL Glucose 67 L (74-99) mg/dL POC Glucose (mg/dL) 171 H (75-99) mg/dL Total Protein (PEP) (6.2-8.2) g/dL Free [place] LC, Quant (0.33-1.94) mg/dL Free [place] LC, Quant (0.57-2.63) mg/dL 06/25/21 Range/Units 11:42 WBC (3.8-10.6) k/uL RBC (3.80-5.40) m/uL Hgb (11.4-16.0) gm/dL Hct (34.0-46.0) % RDW (11.5-15.5) % BUN (7-17) mg/dL Creatinine (0.52-1.04) mg/dL Glucose (74-99) mg/dL POC Glucose (mg/dL) 232 H (75-99) mg/dL Total Protein (PEP) (6.2-8.2) g/dL Free [place] LC, Quant (0.33-1.94) mg/dL Free [place] LC, Quant (0.57-2.63) mg/dL
[2021-06-25 16:36] LABS: Glucose,Whole Blood 191 mg/dL (75-99)
--- NOTE | 2021-06-25 16:58 | P.PN ---
Subjective Progress Note Date: 06/25/21 Principal diagnosis: Left leg wound and cellulitis Patient is 80 year old female with a past medical history significant for chronic nonhealing wound, left lower extremity admitted to the hospital with worsening pain to the left leg wound concerning for cellulitis. On today's evaluation that is 06/25/2021 the patient denies any fever or any chills, the patient pain to the left leg is doing better , The patient denies chest pain breathing more comfortably no cough or sputum production patient denies any abdominal pain no diarrhea, dressing was changed earlier by the vascular surgeon and the nursing staff mention wound base looking clean with no slough or surrounding redness Objective - Vital Signs Vital signs: Vital Signs Temp 97.9 F 06/25/21 08:00 Pulse 84 06/25/21 08:00 Resp 18 06/25/21 08:00 BP 126/74 06/25/21 08:00 Pulse Ox 99 06/25/21 08:29 Intake & Output 06/24/21 06/25/21 06/25/21 18:59 06:59 18:59 Intake Total 200 510 Output Total 1200 2110 Balance -1000 -2110 510 Weight 83.007 kg Intake: IV 10 Invasive Line 9 10 Oral 200 500 Output: Urine 1200 2110 Other: Voiding Method Indwelling Catheter Indwelling Catheter Indwelling Catheter - Exam GENERAL DESCRIPTION: An elderly female lying in bed in no distress RESPIRATORY SYSTEM: Unlabored breathing , decreased breath sounds at bases HEART: S1 S2 regular rate and rhythm , ABDOMEN: Soft , no tenderness EXTREMITIES: Left leg wound is currently dressed no drainage on the dressing - Labs CBC & Chem 7: 06/25/21 07:11 06/25/21 07:11 Labs: Abnormal Lab Results - Last 24 Hours (Table) 06/24/21 06/24/21 06/24/21 Range/Units 08:05 16:46 19:49 WBC (3.8-10.6) k/uL RBC (3.80-5.40) m/uL Hgb (11.4-16.0) gm/dL Hct (34.0-46.0) % RDW (11.5-15.5) % BUN (7-17) mg/dL Creatinine (0.52-1.04) mg/dL Glucose (74-99) mg/dL POC Glucose (mg/dL) 164 H 343 H (75-99) mg/dL Total Protein (PEP) 5.5 L (6.2-8.2) g/dL Free [place] LC, Quant 4.14 H (0.33-1.94) mg/dL Free [place] LC, Quant 4.11 H (0.57-2.63) mg/dL 06/25/21 06/25/21 06/25/21 Range/Units 07:11 07:11 08:33 WBC 11.4 H (3.8-10.6) k/uL RBC 2.56 L (3.80-5.40) m/uL Hgb 7.8 L (11.4-16.0) gm/dL Hct 25.3 L (34.0-46.0) % RDW 15.9 H (11.5-15.5) % BUN 28 H (7-17) mg/dL Creatinine 1.42 H (0.52-1.04) mg/dL Glucose 67 L (74-99) mg/dL POC Glucose (mg/dL) 171 H (75-99) mg/dL Total Protein (PEP) (6.2-8.2) g/dL Free [place] LC, Quant (0.33-1.94) mg/dL Free [place] LC, Quant (0.57-2.63) mg/dL 06/25/21 Range/Units 11:42 WBC (3.8-10.6) k/uL RBC (3.80-5.40) m/uL Hgb (11.4-16.0) gm/dL Hct (34.0-46.0) % RDW (11.5-15.5) % BUN (7-17) mg/dL Creatinine (0.52-1.04) mg/dL Glucose (74-99) mg/dL POC Glucose (mg/dL) 232 H (75-99) mg/dL Total Protein (PEP) (6.2-8.2) g/dL Free [place] LC, Quant (0.33-1.94) mg/dL Free [place]ambda LC, Quant (0.57-2.63) mg/dL Assessment and Plan (1) Leg wound, left Current Visit: Yes Status: Acute Code(s): S81.802A - UNSPECIFIED OPEN WOUND, LEFT LOWER LEG, INITIAL ENCOUNTER SNOMED Code(s): 785520235 Plan: 1patient with chronic nonhealing wound to the left lower extremity in this patient presented to hospital with increasing pain swelling redness and concern for cellulitis apparently the patient did have a chronic wound and has been exposed to antibiotic will need to cover for both gram-positive as well as gram- negative pathogen. 2MRI did not show any evidence of Osteomyelitis, patient surgical debridement has been put on hold because of cardiac condition 3patient left leg culture grew Citrobacter and Klebsiella, the patient has received more than a week of IV cefepime and as there is no evidence of any deep infection antibiotic will be switched over to oral Cipro and Flagyl local care to continue per vascular surgery Time with Patient: Less than 30
[2021-06-25] MEDS: LACTATED RINGERS 1,000 ML IV SCH (17:00)
[2021-06-25] MEDS: metroNIDAZOLE 500 MG TAB PO SCH ×2 (17:03→22:28)
[2021-06-25 20:16] LABS: Glucose,Whole Blood 238 mg/dL (75-99)
[2021-06-25] MEDS ORDERED: INSULIN DETEMIR (LEVEMIR) 100 UNIT/ML SYR SQ SCH (21:00)
--- NOTE | 2021-06-25 21:03 | P.PN ---
Subjective Progress Note Date: 06/25/21 (delayed charting seen at approx. 1345) Principal diagnosis: left leg pain Patient is 80-year-old female with diabetes, GERD, and chronic left lower extremity wound followed at the wound care center who presented to the emergency department with severe left leg pain and infected ulcer. Patient seen and examined at bedside with family present. She reports that her pain is better. She is feeling slightly stronger. She complains of constipation. She has had increased tremor in of her right and left hands with a history of essential tremor. Denies any nausea or vomiting. General: non toxic, no distress, appears at stated age Derm: warm, dry Head: atraumatic, normocephalic, symmetric Eyes: EOMI, no lid lag, anicteric sclera Mouth: no lip lesion, mucus membranes moist Cardiovascular: S1S2 reg, no murmur, positive posterior tibial pulse bilateral, Lungs: CTA bilateral, no rhonchi, no rales , no accessory muscle use Abdominal: soft, nontender to palpation, no guarding, no appreciable organomegaly Ext: no gross muscle atrophy, no edema, no contractures, dressing over left leg Neuro: CN II-XI grossly intact, muscle strength 5 out of 5 in bilateral upper extremities, some intention tremor noted, no dysdiadochokinesis, light touch intact bilaterally, finger to nose was normal. Psych: Alert, oriented, appropriate affect Assessment and plan: Infected left leg ulcer, diabetic Severe peripheral vascular disease - ID following- cipro and flagyl on dsicharge for 10 days - Vascular surgery recs appreciated. Outpatient follow-up at wound care center and then an office. NSTEMI Acute systolic CHF with EF 40-45% -Possibly type II secondary to demand ischemia -Resume beta blockers -2-D echo showed drop in EF 40-45% with apical anterior, lateral and inferior septal hypokinesis -Heart cath was canceled -Cardiology recs appreciated - lasix -metoprolol - no acei due to PRAVIN Anemia -Undetermined etiology. -CBC has been stable, no indication for transfusion -B12 normal, folic acid normal, MMA normal, RBC folate normal, TSH within normal limits -Suspect component of iron deficiency anemia with T sat 4.8, patient's ferritin is 244 but may be falsely elevated due to acute phase reactant. Her overall iron levels are low at 15 and her TIBC is within normal. - COnitnue oral iron therapy,. Avoid IV iron with infection. 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 - A1c 8.5 -Basal bolus insulin adjusted -Hold metformin due to severe lactic acidosis, avoid invokana Diabetic peripheral neuropathy -Lyrica Dyslipidemia Obesity BMI 34 severe sepsis lactic acidosis ANticipate transtion to regency in AM Objective - Vital Signs Vital signs: Vital Signs Temp 98.2 F 06/25/21 17:04 Pulse 81 06/25/21 17:04 Resp 18 06/25/21 17:04 BP 134/63 06/25/21 17:04 Pulse Ox 99 06/25/21 17:04 Intake & Output 06/25/21 06/25/21 06/26/21 06:59 18:59 06:59 Intake Total 1860 Output Total 2109 Balance -2109 1859 Weight 83.007 kg Intake: IV 20 Invasive Line 9 20 Oral 1840 Output: Urine 2109 Other: Voiding Method Indwelling Catheter Indwelling Catheter # Voids 2 - Labs CBC & Chem 7: 06/25/21 07:11 06/25/21 07:11 Labs: Abnormal Lab Results - Last 24 Hours (Table) 06/24/21 06/25/21 06/25/21 Range/Units 08:05 07:11 07:11 WBC 11.4 H (3.8-10.6) k/uL RBC 2.56 L (3.80-5.40) m/uL Hgb 7.8 L (11.4-16.0) gm/dL Hct 25.3 L (34.0-46.0) % RDW 15.9 H (11.5-15.5) % BUN 28 H (7-17) mg/dL Creatinine 1.42 H (0.52-1.04) mg/dL Glucose 67 L (74-99) mg/dL POC Glucose (mg/dL) (75-99) mg/dL Total Protein (PEP) 5.5 L (6.2-8.2) g/dL Free [place] LC, Quant 4.14 H (0.33-1.94) mg/dL Free [place] LC, Quant 4.11 H (0.57-2.63) mg/dL 06/25/21 06/25/21 06/25/21 Range/Units 08:33 11:42 16:32 WBC (3.8-10.6) k/uL RBC (3.80-5.40) m/uL Hgb (11.4-16.0) gm/dL Hct (34.0-46.0) % RDW (11.5-15.5) % BUN (7-17) mg/dL Creatinine (0.52-1.04) mg/dL Glucose (74-99) mg/dL POC Glucose (mg/dL) 171 H 232 H 191 H (75-99) mg/dL Total Protein (PEP) (6.2-8.2) g/dL Free [place] LC, Quant (0.33-1.94) mg/dL Free [place] LC, Quant (0.57-2.63) mg/dL 06/25/21 Range/Units 20:04 WBC (3.8-10.6) k/uL RBC (3.80-5.40) m/uL Hgb (11.4-16.0) gm/dL Hct (34.0-46.0) % RDW (11.5-15.5) % BUN (7-17) mg/dL Creatinine (0.52-1.04) mg/dL Glucose (74-99) mg/dL POC Glucose (mg/dL) 238 H (75-99) mg/dL Total Protein (PEP) (6.2-8.2) g/dL Free [place] LC, Quant (0.33-1.94) mg/dL Free Lambda LC, Quant (0.57-2.63) mg/dL
[2021-06-25] MEDS: ATORVASTATIN 80 MG TAB PO SCH (22:27)
[2021-06-25] MEDS: CIPROFLOXACIN HCL 500 MG TAB PO SCH (22:28)
[2021-06-25] MEDS: MELATONIN 3 MG TABLET PO SCH (22:28)
[2021-06-25] MEDS: FAMOTIDINE 20 MG TAB PO SCH (22:28)
[2021-06-26 06:16] LABS: Glucose,Whole Blood 125 mg/dL (75-99)
[2021-06-26] MEDS: INSULIN DETEMIR (LEVEMIR) 100 UNIT/ML SYR SQ SCH ×2 (07:35→21:21)
[2021-06-26] MEDS: INSULIN ASPART (NovoLOG) 100 UNIT/ML VIAL SQ SCH ×4 (07:36→21:21)
[2021-06-26] MEDS: PANTOPRAZOLE 40 MG TABLET PO SCH (07:36)
[2021-06-26] MEDS: ACETAMINOPHEN TAB 500 MG TAB PO PRN ×3 (07:37→21:22)
[2021-06-26 07:42] LABS: Calcium 8.9 mg/dL (8.4-10.2); Potassium 5.1 mmol/L (3.5-5.1)
[2021-06-26] MEDS: METOPROLOL TARTRATE 12.5 MG TAB PO SCH ×2 (08:18→21:22)
[2021-06-26] MEDS: CIPROFLOXACIN HCL 500 MG TAB PO SCH (08:18)
[2021-06-26] MEDS: ASCORBIC ACID 500 MG TAB PO SCH (08:18)
[2021-06-26] MEDS: DOCUSATE 100 MG CAP PO SCH ×2 (08:18→21:21)
[2021-06-26] MEDS: FERROUS SULFATE 325 MG TAB PO SCH (08:18)
[2021-06-26] MEDS: ASPIRIN 81 MG PO SCH (08:18)
[2021-06-26] MEDS: CYANOCOBALAMIN 500 MCG TAB PO SCH (08:18)
[2021-06-26] MEDS: CHOLECALCIFEROL 25 MCG (1000 IU) TABLET PO SCH (08:18)
[2021-06-26] MEDS: APIXABAN 5 MG TAB PO SCH ×2 (08:19→21:21)
[2021-06-26] MEDS: FENOFIBRATE 160 MG TAB PO SCH (08:19)
[2021-06-26] MEDS: metroNIDAZOLE 500 MG TAB PO SCH ×3 (08:22→21:22)
[2021-06-26] MEDS: PREGABALIN 75 MG CAP PO SCH (08:22)
[2021-06-26] MEDS: polyethylene glycoL 3350 17 GM POWD.PACK PO SCH (08:22)
[2021-06-26] MEDS: LACTOBACILLUS ACIDOPH & BULGAR 1 EACH PACKET PO SCH (08:29)
--- NOTE | 2021-06-26 09:42 | P.PN ---
Subjective Patient is seen in follow-up for acute kidney injury. Renal function worse from diuresis today. Creatinine 1.79. Blood pressure on the lower side today. Nonoliguric. Has a Triana catheter. Oral intake fair. Currently on room air. Denies chest pain or shortness of breath. Vital signs stable. Blood pressure on the lower side. General: Awake and alert. HEENT: No JVD. LUNGS: Breath sounds decreased. HEART: Regular rhythm. ABDOMEN: Soft, no distention. EXTREMITIES: 1+ edema. Objective - Vital Signs Vital signs: Vital Signs Temp 97.0 F L 06/26/21 04:00 Pulse 96 06/26/21 04:00 Resp 18 06/26/21 04:00 BP 102/55 06/26/21 04:00 Pulse Ox 95 06/26/21 04:00 Intake & Output 06/25/21 06/26/21 06/26/21 18:59 06:59 18:59 Intake Total 1860 118 Output Total 1450 Balance 1860 -1450 118 Weight 83.007 kg Intake: IV 20 Invasive Line 9 20 Oral 1840 118 Output: Urine 1450 Other: Voiding Method Indwelling Catheter Indwelling Catheter # Voids 2 # Bowel Movements 0 - Labs CBC & Chem 7: 06/25/21 07:11 06/26/21 07:01 Labs: Abnormal Lab Results - Last 24 Hours (Table) 06/25/21 06/25/21 06/25/21 Range/Units 11:42 16:32 20:04 Sodium (137-145) mmol/L BUN (7-17) mg/dL Creatinine (0.52-1.04) mg/dL Glucose (74-99) mg/dL POC Glucose (mg/dL) 232 H 191 H 238 H (75-99) mg/dL 06/26/21 06/26/21 Range/Units 06:03 07:01 Sodium 136 L (137-145) mmol/L BUN 34 H (7-17) mg/dL Creatinine 1.79 H (0.52-1.04) mg/dL Glucose 112 H (74-99) mg/dL POC Glucose (mg/dL) 125 H (75-99) mg/dL Assessment and Plan Plan: Assessment: 1. Acute kidney injury mostly prerenal secondary to cardiorenal syndrome and hypotension. Also component of contrast-induced acute kidney injury. Patient received IV contrast on 06/22/2021. Cortisol level 23. UA fairly benign. No hydronephrosis noted on kidney ultrasound. Creatinine 1.79 today. 2. Acute on chronic systolic CHF with ejection fraction of 40-45%. 3. Volume overload. Improving with diuresis. 4. Metabolic acidosis secondary to acute kidney injury and lactic acidosis. Improved. 5. Anemia. Iron deficiency noted - s/p IV iron. Hematology following. On Aranesp. 6. Rule out chronic kidney disease. Creatinine in June 2019 was 1.23 and 1.6 as of 10/22/2020. It was as low as 1.05 this admission. 7. Left lower extremity wound/cellulitis. On antibiotics. 8. Diabetes mellitus. 9. History of coronary disease status post cardiac stenting in the past. 10. Questionable CVA. Neurology following. No recent infarct noted on MRI. Plan: Maintain IV Lasix. Avoid nephrotoxins. Continue to monitor renal function and urine output. Check morning cortisol level. Add midodrine - to be held if systolic blood pressure greater than 110.
--- NOTE | 2021-06-26 10:36 | P.PN ---
Subjective Progress Note Date: 06/26/21 She was seen and examined sitting up in bed. States left lower extremity pain improved. Dressing was changed yesterday continuing with Dakin's solution. She will follow-up with the outpatient wound clinic. Possibility of discharge to rehab today. She has been afebrile. Objective - Vital Signs Vital signs: Vital Signs Temp 97.0 F L 06/26/21 04:00 Pulse 96 06/26/21 04:00 Resp 18 06/26/21 04:00 BP 102/55 06/26/21 04:00 Pulse Ox 95 06/26/21 04:00 Intake & Output 06/25/21 06/26/21 06/26/21 18:59 06:59 18:59 Intake Total 1860 Output Total 1450 Balance 1860 -1450 Weight 83.007 kg Intake: IV 20 Invasive Line 9 20 Oral 1840 Output: Urine 1450 Other: Voiding Method Indwelling Catheter Indwelling Catheter # Voids 2 # Bowel Movements 0 - Exam General appearance: The patient is alert, oriented, appears in no acute distress. HET: Head is normocephalic and atraumatic. Neck: Supple. Extremities: Bilateral lower extremities warm to the touch. Bilateral lower extremity edema. Left lower extremity with dressing clean dry and intact with Rudolph wrap. Neurological: No focal deficits. Strength and sensation are grossly intact. - Labs CBC & Chem 7: 06/25/21 07:11 06/26/21 07:01 Labs: Abnormal Lab Results - Last 24 Hours (Table) 06/25/21 06/25/21 06/25/21 Range/Units 08:33 11:42 16:32 Sodium (137-145) mmol/L BUN (7-17) mg/dL Creatinine (0.52-1.04) mg/dL Glucose (74-99) mg/dL POC Glucose (mg/dL) 171 H 232 H 191 H (75-99) mg/dL 06/25/21 06/26/21 06/26/21 Range/Units 20:04 06:03 07:01 Sodium 136 L (137-145) mmol/L BUN 34 H (7-17) mg/dL Creatinine 1.79 H (0.52-1.04) mg/dL Glucose 112 H (74-99) mg/dL POC Glucose (mg/dL) 238 H 125 H (75-99) mg/dL Assessment and Plan Assessment: 1. Nonhealing left lower extremity wound 2. Altered mental status changes, likely TIA 3. Elevated troponins 4. Atrial fibrillation 5. Right ICA stenosis 25%, 50% left ICA stenosis per CT angiogram 6. History of diabetes mellitus with diabetic neuropathy 7. History of coronary artery disease status post heart catheterization and stent Plan: 1. Dakin's solution half-strength wet-to-dry daily 2. Elevate lower extremities 3. Apply Mediboot heel protectors to lower extremity 4. Antibiotics per recommendations from infectious disease 5. No plans on any surgical intervention at this time, recommend outpatient follow up with wound clinic. If surgical debridement is needed can do as an outpatient. Thank you for this consultation, patient is cleared for discharge from vascular surgery. We will sign off at this time. The impression and plan of care has been dictated as directed. Dr. Groves I performed a history and examination of this patient, discussed the same with the dictator. I agree with the dictator's note ,documented as a scribe. Any additional findings or plans will be noted.
[2021-06-26 11:44] LABS: Glucose,Whole Blood 279 mg/dL (75-99)
[2021-06-26 12:19] LABS: Glucose,Whole Blood 347 mg/dL (75-99)
[2021-06-26] MEDS: MIDODRINE 5 MG TAB PO SCH ×2 (12:24→17:28)
[2021-06-26] MEDS: FUROSEMIDE 10 MG/ML 4 ML VIAL IV SCH (12:25)
--- NOTE | 2021-06-26 12:45 | P.PN ---
Subjective The patient is an 80-year-old female patient with CAD with prior PCI of the mid LAD in 2018, type 2 diabetes, hypertension, dyslipidemia, peripheral vascular disease, prior tobacco use. She follows in the office with Dr. Hsu. Patient admitted to the hospital with lower extremities cellulitis and we consulted to see the patient for shortness of breath patient she was ruled in for acute coronary event. 06/22/2021 The initial plan is to pursue with a heart catheterization later on today but unfortunately the patient developed an episode of TIA/stroke. She underwent a computed tomography scan of the brain and that event continues to be in vestigated by the neurology service. The heart catheterization would be canceled. MRI of the brain revealed no evidence of recent infarct, oderate chronic small vessel ischemic change. 06/26/2021 Patient seen and examined at bedside, no acute distress. She is experiencing shortness of breath and LE edema. IV Lasix started 06/24, Patient with good urine output. She denies any chest pain. Telemetry reviewed patient is maintaining sinus mechanism. She has been started on anticoagulation with Eliquis. Scr elevated this morning and patient hypotensive Sodium 136, potassium 5.1, BUN 34, serum creatinine 1.7 GENERAL: In no acute distress. NECK: Supple without JVD or thyromegaly. LUNGS: Breath sounds wheezing bilaterally, mild crackles in the bases auscultation bilaterally. Respiration equal and unlabored. No wheezes, rales or rhonchi. HEART: Regular rate and rhythm without murmurs, rubs or gallops. S1 and S2 heard. EXTREMITIES: Normal range of motion, 1-2+ bilateral lower extremity edema. No clubbing or cyanosis. Peripheral pulses intact. ASSESSMENT New-onset paroxysmal atrial fibrillation, now back in sinus mechanism NSTEMI Cardiomyopathy with an EF of 4045 percent, unclear if ischemic versus nonischemic at this time Possible TIA, evaluated by neurology, patient with symptoms of Aphasia and dysarthria on 06/22/21. CAD with prior PCI of the mid LAD in 2018 Type 2 diabetes History of Hypertension Dyslipidemia Peripheral vascular disease Prior tobacco use Nonhealing left lower extremity wound, vascular evaluated patient no plans of surgical intervention inpatient PLAN Monitor on IV Lasix for additional 24 hours, monitor intake and output, renal function and electrolytes. Continue Eliquis 5mg BID Continue aspirin, statin, continue beta gil We do not plan on doing a cardiac catheterization this admission due to anemia, kidney disease and patient without symptoms of chest pain Recommend physical therapy for patient and increase activity as tolerated Further recommendations based on clinical course Nurse Practitioner note has been reviewed, I agree with a documented findings and plan of care. Patient was seen and examined. Objective - Vital Signs Vital signs: Vital Signs Temp 98.4 F 06/26/21 11:55 Pulse 87 06/26/21 11:55 Resp 20 06/26/21 11:55 BP 117/66 06/26/21 11:55 Pulse Ox 97 06/26/21 11:55 Intake & Output 06/25/21 06/26/21 06/26/21 18:59 06:59 18:59 Intake Total 1860 118 Output Total 1450 Balance 1860 -1450 118 Weight 83.007 kg Intake: IV 20 Invasive Line 9 20 Oral 1840 118 Output: Urine 1450 Other: Voiding Method Indwelling Catheter Indwelling Catheter Indwelling Catheter # Voids 2 # Bowel Movements 0 - Labs CBC & Chem 7: 06/25/21 07:11 06/26/21 07:01 Labs: Abnormal Lab Results - Last 24 Hours (Table) 06/25/21 06/25/21 06/26/21 Range/Units 16:32 20:04 06:03 Sodium (137-145) mmol/L BUN (7-17) mg/dL Creatinine (0.52-1.04) mg/dL Glucose (74-99) mg/dL POC Glucose (mg/dL) 191 H 238 H 125 H (75-99) mg/dL 06/26/21 06/26/21 06/26/21 Range/Units 07:01 11:44 12:17 Sodium 136 L (137-145) mmol/L BUN 34 H (7-17) mg/dL Creatinine 1.79 H (0.52-1.04) mg/dL Glucose 112 H (74-99) mg/dL POC Glucose (mg/dL) 279 H 347 H (75-99) mg/dL
--- NOTE | 2021-06-26 15:35 | P.PN ---
Subjective Progress Note Date: 06/26/21 (delayed charting seen at 1030) Principal diagnosis: left leg pain left leg pain Patient is 80-year-old female with diabetes, GERD, and chronic left lower extremity wound followed at the wound care center who presented to the emergency department with severe left leg pain and infected ulcer. Int he ED she was found to have severe sepsis with Lactic acid 6.1 and systolic blood pressure in the 70s. She was subsequently started on IV antibiotics and admitted to the ICU. She was evaluated by infectious disease and vascular surgery. She was seen by cardiology for worsening shortness of breath. She underwent a VQ scan which showed low probability of pulmonary embolism. She underwent an echocardiogram which showed an ejection fraction of 40-45% with hypokinetic left ventricular wall, moderate tricuspid regurgitation, moderate pulmonary hypertension. She is on have elevated troponin and vascular intervention was delayed. She was noted to have worsening creatinine with seen by nephrology who felt that she had cardiorenal syndrome. She was started on Lasix. She was seen by oncology for normocytic anemia. She did have a of paroxysmal atrial fibrillation but converted back to sinus rhythm. Cardiology did not feel she warranted a cardiac cath at this time secondary to her acute renal failure. She was seen by neurology who felt that she may have had a TIA due to her run of A. fib. Patient continued to progress well. Her acute kidney injury and metabolic acidosis were improving. She did receive IV iron. Images: Tib/fib x- ray: Large ulceration or soft tissue wound all along the medial margin of the left lower extremity with no destructive osseous changes Left foot x-ray: Diffuse osteopenia and soft tissue edema, no destructive changes to suggest osteomyelitis Lower extremity venous Doppler: Unable to obtain TBI as patient would not allow left leg to be touched. Renal ultrasound, limited with no diagnostic evidence of [place], left kidney poorly visualized. MRI of left leg: No diagnostic evidence of osteomyelitis, large soft tissue wound with edema suggestive of cellulitis, edema in the adjacent medial calf musculature and myositis involvement of the vasculature is in the differential. VQ scan which showed low probability of pulmonary embolism echocardiogram which showed an ejection fraction of 40-45% with hypokinetic left ventricular wall, moderate tricuspid regurgitation, moderate pulmonary hypertension CT head: Age-related atrophic and chronic small vessel ischemic changes without acute intracranial process. CT head and neck: Moderate proximal left ICA stenosis on the right, mild to moderate bilateral pleural effusions, moderate to severe irregular atherosclerotic stenosis with moderate focal stenosis of the A3 segment of the left IAIN Repeat renal ultrasound: No evidence of hydronephrosis MRI brain: Mild to moderate diffuse cerebral atrophy with moderate chronic small vessel ischemic changes, increasing fluid in the bilateral mastoid air cells Patient seen and examined at bedside with family present. Her constipation is resolved. She is having worsening lower extremity edema today. She also complains of intermittent nerve pain in her left leg that has been not responsive to her Lyrica. This is slowly worsening over time. Her tremor seems to be improving slowly per patient. She has been eating and drinking relatively well though she did not eat breakfast this morning. General: non toxic, no distress, appears at stated age Derm: warm, dry Head: atraumatic, normocephalic, symmetric Eyes: EOMI, no lid lag, anicteric sclera Mouth: no lip lesion, mucus membranes moist Cardiovascular: S1S2 reg, no murmur, positive posterior tibial pulse bilateral, Lungs: CTA bilateral, no rhonchi, no rales , no accessory muscle use Abdominal: soft, nontender to palpation, no guarding, no appreciable organomegaly Ext: no gross muscle atrophy, 2+ edema bilateral lower extremities, no cont ractures, dressing over left leg Neuro: CN II-XI grossly intact, no focal neuro deficits noted Psych: Alert, oriented, appropriate affect Assessment and plan: Citrobacter and Klebsiella Infected left leg ulcer, diabetic Severe peripheral vascular disease - ID following- cipro and flagyl on dsicharge for 9 more days - Vascular surgery recs appreciated. Outpatient follow-up at wound care center and then an office. NSTEMI Acute systolic CHF with EF 40-45% New-onset paroxysmal A. fib currently back in sinus rhythm -Possibly type II secondary to demand ischemia -2-D echo showed drop in EF 40-45% with apical anterior, lateral and inferior septal hypokinesis -Heart cath was canceled -Cardiology recs appreciated - lasix -metoprolol - no acei due to PRAVIN -Eliquis Anemia -CBC has been stable, no indication for transfusion -B12 normal, folic acid normal, MMA normal, RBC folate normal, TSH within normal limits -Suspect component of iron deficiency anemia with T sat 4.8, patient's ferritin is 244 but may be falsely elevated due to acute phase reactant. Her overall iron levels are low at 15 and her TIBC is within normal. - Conitnue oral iron therapy, s/p IV iron 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 and hypoglycemia - A1c 8.5 -Basal bolus insulin adjusted -Hold metformin due to severe lactic acidosis, avoid invokana Diabetic peripheral neuropathy -Lyrica increased Dyslipidemia Obesity BMI 34 severe sepsis lactic acidosis Constipation, resolved TIA Carotid stenosis- outpatient follow-up DVT prophylaxis: I'll quit Possible discharge to subacute rehab in a.m. Objective - Vital Signs Vital signs: Vital Signs Temp 98.4 F 06/26/21 11:55 Pulse 87 06/26/21 11:55 Resp 20 06/26/21 11:55 BP 117/66 06/26/21 11:55 Pulse Ox 97 06/26/21 11:55 Intake & Output 06/25/21 06/26/21 06/26/21 18:59 06:59 18:59 Intake Total 1860 236 Output Total 1450 Balance 1860 -1450 236 Weight 83.007 kg Intake: IV 20 Invasive Line 9 20 Oral 1840 236 Output: Urine 1450 Other: Voiding Method Indwelling Catheter Indwelling Catheter Indwelling Catheter # Voids 2 1 # Bowel Movements 0 - Labs CBC & Chem 7: 06/25/21 07:11 06/26/21 07:01 Labs: Abnormal Lab Results - Last 24 Hours (Table) 06/25/21 06/25/21 06/26/21 Range/Units 16:32 20:04 06:03 Sodium (137-145) mmol/L BUN (7-17) mg/dL Creatinine (0.52-1.04) mg/dL Glucose (74-99) mg/dL POC Glucose (mg/dL) 191 H 238 H 125 H (75-99) mg/dL 06/26/21 06/26/21 06/26/21 Range/Units 07:01 11:44 12:17 Sodium 136 L (137-145) mmol/L BUN 34 H (7-17) mg/dL Creatinine 1.79 H (0.52-1.04) mg/dL Glucose 112 H (74-99) mg/dL POC Glucose (mg/dL) 279 H 347 H (75-99) mg/dL
[2021-06-26] MEDS: SODIUM HYPOCHLORITE 0.25% 480 ML BOT MISCELLANE SCH (15:43)
[2021-06-26] MEDS: LACTATED RINGERS 1,000 ML IV SCH (15:45)
--- NOTE | 2021-06-26 15:50 | P.PN ---
Subjective Progress Note Date: 06/26/21 Principal diagnosis: Left leg wound and cellulitis Patient is 80 year old female with a past medical history significant for chronic nonhealing wound, left lower extremity admitted to the hospital with worsening pain to the left leg wound concerning for cellulitis. On today's evaluation that is 06/26/2021 the patient remains to be afebrile, the patient denies chest pain breathing more comfortably no cough or sputum production patient denies any abdominal pain no diarrhea, patient denies pain to the left lower extremity Objective - Vital Signs Vital signs: Vital Signs Temp 98.4 F 06/26/21 11:55 Pulse 87 06/26/21 11:55 Resp 20 06/26/21 11:55 BP 117/66 06/26/21 11:55 Pulse Ox 97 06/26/21 11:55 Intake & Output 06/25/21 06/26/21 06/26/21 18:59 06:59 18:59 Intake Total 1860 236 Output Total 1450 Balance 1860 -1450 236 Weight 83.007 kg Intake: IV 20 Invasive Line 9 20 Oral 1840 236 Output: Urine 1450 Other: Voiding Method Indwelling Catheter Indwelling Catheter Indwelling Catheter # Voids 2 1 # Bowel Movements 0 - Exam GENERAL DESCRIPTION: An elderly female lying in bed in no distress RESPIRATORY SYSTEM: Unlabored breathing , decreased breath sounds at bases HEART: S1 S2 regular rate and rhythm , ABDOMEN: Soft , no tenderness EXTREMITIES: Left leg wound is currently dressed no drainage on the dressing - Labs CBC & Chem 7: 06/25/21 07:11 06/26/21 07:01 Labs: Abnormal Lab Results - Last 24 Hours (Table) 06/25/21 06/25/21 06/26/21 Range/Units 16:32 20:04 06:03 Sodium (137-145) mmol/L BUN (7-17) mg/dL Creatinine (0.52-1.04) mg/dL Glucose (74-99) mg/dL POC Glucose (mg/dL) 191 H 238 H 125 H (75-99) mg/dL 06/26/21 06/26/21 06/26/21 Range/Units 07:01 11:44 12:17 Sodium 136 L (137-145) mmol/L BUN 34 H (7-17) mg/dL Creatinine 1.79 H (0.52-1.04) mg/dL Glucose 112 H (74-99) mg/dL POC Glucose (mg/dL) 279 H 347 H (75-99) mg/dL Assessment and Plan (1) Leg wound, left Current Visit: Yes Status: Acute Code(s): S81.802A - UNSPECIFIED OPEN WOUND, LEFT LOWER LEG, INITIAL ENCOUNTER SNOMED Code(s): 899294525 Plan: 1patient with chronic nonhealing wound to the left lower extremity in this patient presented to hospital with increasing pain swelling redness and concern for cellulitis apparently the patient did have a chronic wound and has been exposed to antibiotic will need to cover for both gram-positive as well as gram-negative pathogen. 2MRI did not show any evidence of Osteomyelitis, patient surgical debridement has been put on hold because of cardiac condition 3patient left leg culture grew Citrobacter and Klebsiella, the patient to continue with oral Cipro and Flagyl local care to continue per vascular surgery Time with Patient: Less than 30
[2021-06-26 16:39] LABS: Glucose,Whole Blood 335 mg/dL (75-99)
[2021-06-26 21:14] LABS: Glucose,Whole Blood 273 mg/dL (75-99)
[2021-06-26] MEDS: ATORVASTATIN 80 MG TAB PO SCH (21:21)
[2021-06-26] MEDS: FAMOTIDINE 20 MG TAB PO SCH (21:21)
[2021-06-26] MEDS: PREGABALIN 100 MG CAP PO SCH (21:22)
[2021-06-26] MEDS: MELATONIN 3 MG TABLET PO SCH (21:22)
[2021-06-27] MEDS: CIPROFLOXACIN HCL 500 MG TAB PO SCH ×2 (02:01→20:16)
[2021-06-27 06:42] LABS: Glucose,Whole Blood 167 mg/dL (75-99)
[2021-06-27] MEDS: PANTOPRAZOLE 40 MG TABLET PO SCH (07:03)
[2021-06-27] MEDS: MIDODRINE 5 MG TAB PO SCH ×3 (07:03→17:07)
[2021-06-27] MEDS: INSULIN DETEMIR (LEVEMIR) 100 UNIT/ML SYR SQ SCH ×2 (07:04→20:17)
[2021-06-27] MEDS: INSULIN ASPART (NovoLOG) 100 UNIT/ML VIAL SQ SCH ×5 (07:05→20:19)
[2021-06-27] MEDS: polyethylene glycoL 3350 17 GM POWD.PACK PO SCH (08:22)
[2021-06-27] MEDS: DOCUSATE 100 MG CAP PO SCH ×2 (08:23→20:17)
[2021-06-27] MEDS: CHOLECALCIFEROL 25 MCG (1000 IU) TABLET PO SCH (08:23)
[2021-06-27] MEDS: metroNIDAZOLE 500 MG TAB PO SCH ×3 (08:23→20:17)
[2021-06-27] MEDS: CYANOCOBALAMIN 500 MCG TAB PO SCH (08:23)
[2021-06-27] MEDS: PREGABALIN 100 MG CAP PO SCH ×2 (08:23→20:17)
[2021-06-27] MEDS: ASCORBIC ACID 500 MG TAB PO SCH (08:23)
[2021-06-27] MEDS: ASPIRIN 81 MG PO SCH (08:23)
[2021-06-27] MEDS: ACETAMINOPHEN TAB 500 MG TAB PO PRN ×3 (08:23→22:53)
[2021-06-27] MEDS: METOPROLOL TARTRATE 12.5 MG TAB PO SCH ×2 (08:23→20:17)
[2021-06-27] MEDS: FERROUS SULFATE 325 MG TAB PO SCH (08:23)
[2021-06-27] MEDS: FENOFIBRATE 160 MG TAB PO SCH (08:24)
[2021-06-27] MEDS: APIXABAN 5 MG TAB PO SCH ×2 (08:24→20:16)
[2021-06-27 08:27] LABS: Calcium 8.8 mg/dL (8.4-10.2); Magnesium 2.2 mg/dL (1.6-2.3); Potassium 4.4 mmol/L (3.5-5.1)
[2021-06-27] MEDS: LACTOBACILLUS ACIDOPH & BULGAR 1 EACH PACKET PO SCH (08:28)
[2021-06-27 08:56] LABS: Anisocytosis Slight; HCT 30.3 % (34.0-46.0); Hypochromasia Marked; MCH 30.4 pg (25.0-35.0); MCHC 29.6 g/dL (31.0-37.0); MCV 102.8 fL (80.0-100.0); Macrocytosis Moderate; Mean Platelet Volume 8.6; Platelet Count 604 k/uL (150-450); RBC 2.95 m/uL (3.80-5.40); RDW 16.4 % (11.5-15.5); WBC 13.3 k/uL (3.8-10.6)
[2021-06-27] MEDS: FUROSEMIDE 10 MG/ML 4 ML VIAL IV SCH (09:03)
[2021-06-27 12:00] LABS: Glucose,Whole Blood 344 mg/dL (75-99)
[2021-06-27 16:42] LABS: Glucose,Whole Blood 374 mg/dL (75-99)
--- NOTE | 2021-06-27 16:43 | P.PN ---
Subjective Patient is seen for follow-up for acute kidney injury. She is maintained on IV Lasix for volume overload. Patient is complaining of increased weakness in her legs which is new from yesterday. Good urine output Serum creatinine further improved to 1.59 today Objective - Vital Signs Vital signs: Vital Signs Temp 97.7 F 06/27/21 15:17 Pulse 82 06/27/21 15:17 Resp 18 06/27/21 15:17 BP 123/73 06/27/21 15:17 Pulse Ox 97 06/27/21 15:17 Intake & Output 06/26/21 06/27/21 06/27/21 18:59 06:59 18:59 Intake Total 236 10 238 Output Total 3250 500 Balance 236 -3240 -262 Intake: IV 10 0.9 10 Oral 236 238 Output: Urine 3250 500 Other: Voiding Method Indwelling Catheter Indwelling Catheter Toilet # Voids 1 1 - Exam On examination patient is comfortable awake alert oriented 3. Not in any acute distress Examination of the heart S1 and S2 Examination lungs bilateral breath sounds are heard [place] abdomen is soft nontender Examination lower extremities shows edema 2+ right leg. Left leg is wrapped. - Labs CBC & Chem 7: 06/27/21 07:59 06/27/21 07:59 Labs: Abnormal Lab Results - Last 24 Hours (Table) 06/26/21 06/26/21 06/27/21 Range/Units 16:38 21:11 06:29 WBC (3.8-10.6) k/uL RBC (3.80-5.40) m/uL Hgb (11.4-16.0) gm/dL Hct (34.0-46.0) % MCV (80.0-100.0) fL MCHC (31.0-37.0) g/dL RDW (11.5-15.5) % Plt Count (150-450) k/uL Sodium (137-145) mmol/L BUN (7-17) mg/dL Creatinine (0.52-1.04) mg/dL Glucose (74-99) mg/dL POC Glucose (mg/dL) 335 H 273 H 167 H (75-99) mg/dL 06/27/21 06/27/21 06/27/21 Range/Units 07:59 07:59 11:59 WBC 13.3 H (3.8-10.6) k/uL RBC 2.95 L (3.80-5.40) m/uL Hgb 9.0 L (11.4-16.0) gm/dL Hct 30.3 L (34.0-46.0) % MCV 102.8 H (80.0-100.0) fL MCHC 29.6 L (31.0-37.0) g/dL RDW 16.4 H (11.5-15.5) % Plt Count 604 H (150-450) k/uL Sodium 136 L (137-145) mmol/L BUN 32 H (7-17) mg/dL Creatinine 1.59 H (0.52-1.04) mg/dL Glucose 253 H (74-99) mg/dL POC Glucose (mg/dL) 344 H (75-99) mg/dL Assessment and Plan Assessment: 1. Acute kidney injury secondary to hypotension, cardiorenal. Nonoliguric. Vancomycin level was 16.3 today. UA quite benign on 06/17/2021 2. Acute CHF and top of chronic mostly systolic 3. Cardiomyopathy with EF 40-45% 4. Left lower extremity chronic nonhealing wound/ulcer with cellulitis. Wound cultures growing Citrobacter and Klebsiella. Patient is being followed by ID 5. Anemia, no active bleeding noted, severe iron deficiency noted with iron saturation at 4%, status post IV iron Plan: Continue with the IV Lasix repeat labs in a.m. Monitor electrolytes. Continue to encourage increase oral intake
--- NOTE | 2021-06-27 17:05 | P.PN ---
Subjective Progress Note Date: 06/27/21 (delayed charting seen at 1030) Principal diagnosis: left leg pain left leg pain Patient is 80-year-old female with diabetes, GERD, and chronic left lower extremity wound followed at the wound care center who presented to the emergency department with severe left leg pain and infected ulcer. Int he ED she was found to have severe sepsis with Lactic acid 6.1 and systolic blood pressure in the 70s. She was subsequently started on IV antibiotics and admitted to the ICU. She was evaluated by infectious disease and vascular surgery. She was seen by cardiology for worsening shortness of breath. She underwent a VQ scan which showed low probability of pulmonary embolism. She underwent an echocardiogram which showed an ejection fraction of 40-45% with hypokinetic left ventricular wall, moderate tricuspid regurgitation, moderate pulmonary hypertension. She is on have elevated troponin and vascular intervention was delayed. She was noted to have worsening creatinine with seen by nephrology who felt that she had cardiorenal syndrome. She was started on Lasix. She was seen by oncology for normocytic anemia. She did have a of paroxysmal atrial fibrillation but converted back to sinus rhythm. Cardiology did not feel she warranted a cardiac cath at this time secondary to her acute renal failure. She was seen by neurology who felt that she may have had a TIA due to her run of A. fib. Patient continued to progress well. Her acute kidney injury and metabolic acidosis were improving. She did receive IV iron. She had increased WBC count after transition to oral antibiotics, which may be due to volume contraction. Images: Tib/fib x- ray: Large ulceration or soft tissue wound all along the medial margin of the left lower extremity with no destructive osseous changes Left foot x-ray: Diffuse osteopenia and soft tissue edema, no destructive changes to suggest osteomyelitis Lower extremity venous Doppler: Unable to obtain TBI as patient would not allow left leg to be touched. Renal ultrasound, limited with no diagnostic evidence of [place], left kidney poorly visualized. MRI of left leg: No diagnostic evidence of osteomyelitis, large soft tissue wound with edema suggestive of cellulitis, edema in the adjacent medial calf mu sculature and myositis involvement of the vasculature is in the differential. VQ scan which showed low probability of pulmonary embolism echocardiogram which showed an ejection fraction of 40-45% with hypokinetic left ventricular wall, moderate tricuspid regurgitation, moderate pulmonary hypertension CT head: Age-related atrophic and chronic small vessel ischemic changes without acute intracranial process. CT head and neck: Moderate proximal left ICA stenosis on the right, mild to moderate bilateral pleural effusions, moderate to severe irregular atherosclerotic stenosis with moderate focal stenosis of the A3 segment of the left IAIN Repeat renal ultrasound: No evidence of hydronephrosis MRI brain: Mild to moderate diffuse cerebral atrophy with moderate chronic small vessel ischemic changes, increasing fluid in the bilateral mastoid air cells Patient seen and examined at bedside. Her edema is improved. No shortness of breath. Still not much appetite. . General: non toxic, no distress, appears at stated age Derm: warm, dry, dressing over left leg Head: atraumatic, normocephalic, symmetric Eyes: EOMI, no lid lag, anicteric sclera Mouth: no lip lesion, mucus membranes moist Cardiovascular: S1S2 reg, no murmur, positive posterior tibial pulse bilateral, Lungs: Decresaed bs bilateral, no rhonchi, no rales , no accessory muscle use Abdominal: soft, nontender to palpation, no guarding, no appreciable organomegaly Ext: no gross muscle atrophy, 2+ edema bilateral lower extremities, no contractures, Neuro: CN II-XI grossly intact, no focal neuro deficits noted Psych: Alert, oriented, appropriate affect Assessment and plan: Citrobacter and Klebsiella Infected left leg ulcer, diabetic Severe peripheral vascular disease - ID following- cipro and flagyl on discharge for 8 more days - Vascular surgery recs appreciated. Outpatient follow-up at wound care center and then an office. - wound care recs NSTEMI Acute systolic CHF with EF 40-45% New-onset paroxysmal A. fib currently back in sinus rhythm -Possibly type II secondary to demand ischemia -2-D echo showed drop in EF 40-45% with apical anterior, lateral and inferior septal hypokinesis -Heart cath was canceled due to medical conditions -Cardiology recs appreciated -IV lasix -metoprolol - no acei due to PRAVIN -Eliquis Anemia -CBC has been stable, no indication for transfusion -B12 normal, folic acid normal, MMA normal, RBC folate normal, TSH within normal limits -Suspect component of iron deficiency anemia with T sat 4.8, patient's ferritin is 244 but may be falsely elevated due to acute phase reactant. Her overall iron levels are low at 15 and her TIBC is within normal. - Conitnue oral iron therapy, s/p IV iron 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 and hypoglycemia - A1c 8.5 -Basal bolus insulin adjusted -Hold metformin due to severe lactic acidosis, avoid invokana Diabetic peripheral neuropathy -Lyrica increased Dyslipidemia Obesity BMI 34 severe sepsis lactic acidosis Constipation, resolved TIA Carotid stenosis- outpatient follow-up DVT prophylaxis: Eliquis Possible discharge to subacute rehab 06/29. still with fluid overload and continues to need diuresis. Objective - Vital Signs Vital signs: Vital Signs Temp 97.7 F 06/27/21 15:17 Pulse 82 06/27/21 15:17 Resp 18 06/27/21 15:17 BP 123/73 06/27/21 15:17 Pulse Ox 97 06/27/21 15:17 Intake & Output 06/26/21 06/27/21 06/27/21 18:59 06:59 18:59 Intake Total 236 10 238 Output Total 3250 500 Balance 236 -3240 -262 Intake: IV 10 0.9 10 Oral 236 238 Output: Urine 3250 500 Other: Voiding Method Indwelling Catheter Indwelling Catheter Toilet # Voids 1 1 - Labs CBC & Chem 7: 06/27/21 07:59 06/27/21 07:59 Labs: Abnormal Lab Results - Last 24 Hours (Table) 06/26/21 06/27/21 06/27/21 Range/Units 21:11 06:29 07:59 WBC (3.8-10.6) k/uL RBC (3.80-5.40) m/uL Hgb (11.4-16.0) gm/dL Hct (34.0-46.0) % MCV (80.0-100.0) fL MCHC (31.0-37.0) g/dL RDW (11.5-15.5) % Plt Count (150-450) k/uL Sodium 136 L (137-145) mmol/L BUN 32 H (7-17) mg/dL Creatinine 1.59 H (0.52-1.04) mg/dL Glucose 253 H (74-99) mg/dL POC Glucose (mg/dL) 273 H 167 H (75-99) mg/dL 06/27/21 06/27/21 06/27/21 Range/Units 07:59 11:59 16:41 WBC 13.3 H (3.8-10.6) k/uL RBC 2.95 L (3.80-5.40) m/uL Hgb 9.0 L (11.4-16.0) gm/dL Hct 30.3 L (34.0-46.0) % MCV 102.8 H (80.0-100.0) fL MCHC 29.6 L (31.0-37.0) g/dL RDW 16.4 H (11.5-15.5) % Plt Count 604 H (150-450) k/uL Sodium (137-145) mmol/L BUN (7-17) mg/dL Creatinine (0.52-1.04) mg/dL Glucose (74-99) mg/dL POC Glucose (mg/dL) 344 H 374 H (75-99) mg/dL
--- NOTE | 2021-06-27 17:06 | P.PN ---
Subjective The patient is an 80-year-old female patient with CAD with prior PCI of the mid LAD in 2018, type 2 diabetes, hypertension, dyslipidemia, peripheral vascular disease, prior tobacco use. She follows in the office with Dr. Hsu. Patient admitted to the hospital with lower extremities cellulitis and we consulted to see the patient for shortness of breath patient she was ruled in for acute coronary event. 06/22/2021 The initial plan is to pursue with a heart catheterization later on today but unfortunately the patient developed an episode of TIA/stroke. She underwent a computed tomography scan of the brain and that event continues to be i nvestigated by the neurology service. The heart catheterization would be canceled. MRI of the brain revealed no evidence of recent infarct, oderate chronic small vessel ischemic change. 06/26/2021 Patient seen and examined at bedside, no acute distress. She is experiencing shortness of breath and LE edema. IV Lasix started 06/24, Patient with good urine output. She denies any chest pain. Telemetry reviewed patient is maintaining sinus mechanism. She has been started on anticoagulation with Eliquis. Scr elevated this morning and patient hypotensive Sodium 136, potassium 5.1, BUN 34, serum creatinine 1.7 06/27 Patient seen and examined. No chest pain or SOB. Continued pain in LLE. No palpitations. She did have some mild lightheadedness earlier and discrepancies and right and left blood pressures with right blood pressures been approximately 40 mmHg lower concerning for subclavian stenosis. GENERAL: In no acute distress. NECK: Supple without JVD or thyromegaly. LUNGS: Breath sounds wheezing bilaterally, mild crackles in the bases auscultation bilaterally. Respiration equal and unlabored. No wheezes, rales or rhonchi. HEART: Regular rate and rhythm without murmurs, rubs or gallops. S1 and S2 heard. EXTREMITIES: Normal range of motion, 1-2+ bilateral lower extremity edema. No clubbing or cyanosis. Peripheral pulses intact. ASSESSMENT New-onset paroxysmal atrial fibrillation, now back in sinus mechanism NSTEMI Cardiomyopathy with an EF of 4045 percent, unclear if ischemic versus nonischemic at this time Possible TIA, evaluated by neurology, patient with symptoms of Aphasia and dysarthria on 06/22/21. CAD with prior PCI of the mid LAD in 2018 Type 2 diabetes History of Hypertension Dyslipidemia Peripheral vascular disease Prior tobacco use Nonhealing left lower extremity wound, vascular evaluated patient no plans of surgical intervention inpatient Discrepancy of right and left blood pressures by 40 mmHg concerning for subclavian stenosis PLAN Patient appears near euvolemic. Transition over to oral Lasix. Continue Eliquis 5mg BID Continue aspirin, statin, continue beta gil We do not plan on doing a cardiac catheterization this admission due to anemia, kidney disease and patient without symptoms of chest pain Goal BP < 140 by the left BP cuff as right appears lower consistent with subclavian stenosis. No further recommendations from a cardiology standpoint. Please call with any questions. Objective - Vital Signs Vital signs: Vital Signs Temp 97.7 F 06/27/21 15:17 Pulse 82 06/27/21 15:17 Resp 18 06/27/21 15:17 BP 123/73 06/27/21 15:17 Pulse Ox 97 06/27/21 15:17 Intake & Output 06/26/21 06/27/21 06/27/21 18:59 06:59 18:59 Intake Total 236 10 238 Output Total 3250 500 Balance 236 -3240 -262 Intake: IV 10 0.9 10 Oral 236 238 Output: Urine 3250 500 Other: Voiding Method Indwelling Catheter Indwelling Catheter Toilet # Voids 1 1 - Labs CBC & Chem 7: 06/27/21 07:59 06/27/21 07:59 Labs: Abnormal Lab Results - Last 24 Hours (Table) 06/26/21 06/27/21 06/27/21 Range/Units 21:11 06:29 07:59 WBC (3.8-10.6) k/uL RBC (3.80-5.40) m/uL Hgb (11.4-16.0) gm/dL Hct (34.0-46.0) % MCV (80.0-100.0) fL MCHC (31.0-37.0) g/dL RDW (11.5-15.5) % Plt Count (150-450) k/uL Sodium 136 L (137-145) mmol/L BUN 32 H (7-17) mg/dL Creatinine 1.59 H (0.52-1.04) mg/dL Glucose 253 H (74-99) mg/dL POC Glucose (mg/dL) 273 H 167 H (75-99) mg/dL 06/27/21 06/27/21 06/27/21 Range/Units 07:59 11:59 16:41 WBC 13.3 H (3.8-10.6) k/uL RBC 2.95 L (3.80-5.40) m/uL Hgb 9.0 L (11.4-16.0) gm/dL Hct 30.3 L (34.0-46.0) % MCV 102.8 H (80.0-100.0) fL MCHC 29.6 L (31.0-37.0) g/dL RDW 16.4 H (11.5-15.5) % Plt Count 604 H (150-450) k/uL Sodium (137-145) mmol/L BUN (7-17) mg/dL Creatinine (0.52-1.04) mg/dL Glucose (74-99) mg/dL POC Glucose (mg/dL) 344 H 374 H (75-99) mg/dL
[2021-06-27] MEDS: SODIUM HYPOCHLORITE 0.25% 480 ML BOT MISCELLANE SCH (18:49)
[2021-06-27] MEDS: LACTATED RINGERS 1,000 ML IV SCH (19:58)
[2021-06-27 20:05] LABS: Glucose,Whole Blood 155 mg/dL (75-99)
[2021-06-27] MEDS: FAMOTIDINE 20 MG TAB PO SCH (20:17)
[2021-06-27] MEDS: ATORVASTATIN 80 MG TAB PO SCH (20:17)
[2021-06-27] MEDS: MELATONIN 3 MG TABLET PO SCH (20:17)
--- NOTE | 2021-06-27 22:54 | P.PN ---
Subjective Progress Note Date: 06/27/21 Principal diagnosis: Left leg wound and cellulitis Patient is 80 year old female with a past medical history significant for chronic nonhealing wound, left lower extremity admitted to the hospital with worsening pain to the left leg wound concerning for cellulitis. On today's evaluation that is 06/27/2021 the patient denies any fever or chills, the patient denies chest pain, the patient is breathing more comfortably no cough or sputum production patient denies any abdominal pain no diarrhea, patient denies pain to the left lower extremity Objective - Vital Signs Vital signs: Vital Signs Temp 97.1 F L 06/27/21 11:45 Pulse 67 06/27/21 11:45 Resp 18 06/27/21 11:45 BP 128/50 06/27/21 11:45 Pulse Ox 95 06/27/21 11:45 Intake & Output 06/26/21 06/27/21 06/27/21 18:59 06:59 18:59 Intake Total 236 10 238 Output Total 3250 500 Balance 236 -3240 -262 Intake: IV 10 0.9 10 Oral 236 238 Output: Urine 3250 500 Other: Voiding Method Indwelling Catheter Indwelling Catheter Toilet # Voids 1 1 - Exam GENERAL DESCRIPTION: An elderly female lying in bed in no distress RESPIRATORY SYSTEM: Unlabored breathing , decreased breath sounds at bases HEART: S1 S2 regular rate and rhythm , ABDOMEN: Soft , no tenderness EXTREMITIES: Left leg wound is currently dressed no drainage on the dressing - Labs CBC & Chem 7: 06/27/21 07:59 06/27/21 07:59 Labs: Abnormal Lab Results - Last 24 Hours (Table) 06/26/21 06/26/21 06/27/21 Range/Units 16:38 21:11 06:29 WBC (3.8-10.6) k/uL RBC (3.80-5.40) m/uL Hgb (11.4-16.0) gm/dL Hct (34.0-46.0) % MCV (80.0-100.0) fL MCHC (31.0-37.0) g/dL RDW (11.5-15.5) % Plt Count (150-450) k/uL Sodium (137-145) mmol/L BUN (7-17) mg/dL Creatinine (0.52-1.04) mg/dL Glucose (74-99) mg/dL POC Glucose (mg/dL) 335 H 273 H 167 H (75-99) mg/dL 06/27/21 06/27/21 06/27/21 Range/Units 07:59 07:59 11:59 WBC 13.3 H (3.8-10.6) k/uL RBC 2.95 L (3.80-5.40) m/uL Hgb 9.0 L (11.4-16.0) gm/dL Hct 30.3 L (34.0-46.0) % MCV 102.8 H (80.0-100.0) fL MCHC 29.6 L (31.0-37.0) g/dL RDW 16.4 H (11.5-15.5) % Plt Count 604 H (150-450) k/uL Sodium 136 L (137-145) mmol/L BUN 32 H (7-17) mg/dL Creatinine 1.59 H (0.52-1.04) mg/dL Glucose 253 H (74-99) mg/dL POC Glucose (mg/dL) 344 H (75-99) mg/dL Assessment and Plan (1) Leg wound, left Current Visit: Yes Status: Acute Code(s): S81.802A - UNSPECIFIED OPEN WOUND, LEFT LOWER LEG, INITIAL ENCOUNTER SNOMED Code(s): 956804602 Plan: 1patient with chronic nonhealing wound to the left lower extremity in this patient presented to hospital with increasing pain swelling redness and concern for cellulitis apparently the patient did have a chronic wound and has been exposed to antibiotic will need to cover for both gram-positive as well as gram- negative pathogen. 2MRI did not show any evidence of Osteomyelitis, patient surgical debridement has been put on hold because of cardiac condition 3patient left leg culture grew Citrobacter, Klebsiella and anaerobes, the patient has received more than a week of IV cefepime and is currently being treated with oral Cipro and Flagyl to continue along with local care per vascular surgery
[2021-06-28 06:28] LABS: Glucose,Whole Blood 155 mg/dL (75-99)
[2021-06-28] MEDS: ACETAMINOPHEN TAB 500 MG TAB PO PRN ×3 (06:43→22:28)
[2021-06-28] MEDS: PANTOPRAZOLE 40 MG TABLET PO SCH (06:43)
[2021-06-28] MEDS: MIDODRINE 5 MG TAB PO SCH ×3 (06:43→17:06)
[2021-06-28] MEDS: INSULIN DETEMIR (LEVEMIR) 100 UNIT/ML SYR SQ SCH ×2 (07:33→22:25)
[2021-06-28] MEDS: INSULIN ASPART (NovoLOG) 100 UNIT/ML VIAL SQ SCH ×8 (07:34→22:25)
[2021-06-28 08:09] LABS: Anisocytosis Slight; HCT 31.1 % (34.0-46.0); Hypochromasia Marked; MCH 30.4 pg (25.0-35.0); MCV 104.9 fL (80.0-100.0); Macrocytosis Moderate; Mean Platelet Volume 8.4; Platelet Count 421 k/uL (150-450); RBC 2.97 m/uL (3.80-5.40); RDW 16.1 % (11.5-15.5); WBC 10.2 k/uL (3.8-10.6)
[2021-06-28] MEDS: DOCUSATE 100 MG CAP PO SCH ×2 (08:17→22:24)
[2021-06-28] MEDS: ASPIRIN 81 MG PO SCH (08:17)
[2021-06-28] MEDS: ASCORBIC ACID 500 MG TAB PO SCH (08:17)
[2021-06-28] MEDS: PREGABALIN 100 MG CAP PO SCH ×2 (08:17→22:24)
[2021-06-28] MEDS: CHOLECALCIFEROL 25 MCG (1000 IU) TABLET PO SCH (08:17)
[2021-06-28] MEDS: FENOFIBRATE 160 MG TAB PO SCH (08:18)
[2021-06-28] MEDS: CYANOCOBALAMIN 500 MCG TAB PO SCH (08:18)
[2021-06-28] MEDS: FERROUS SULFATE 325 MG TAB PO SCH (08:18)
[2021-06-28] MEDS: LACTOBACILLUS ACIDOPH & BULGAR 1 EACH PACKET PO SCH (08:18)
[2021-06-28] MEDS: polyethylene glycoL 3350 17 GM POWD.PACK PO SCH (08:18)
[2021-06-28] MEDS: metroNIDAZOLE 500 MG TAB PO SCH ×3 (08:18→22:25)
[2021-06-28] MEDS: METOPROLOL TARTRATE 12.5 MG TAB PO SCH ×2 (08:18→22:24)
[2021-06-28] MEDS: APIXABAN 5 MG TAB PO SCH ×2 (08:18→22:25)
[2021-06-28 08:22] LABS: Calcium 8.6 mg/dL (8.4-10.2); Magnesium 2.2 mg/dL (1.6-2.3); Potassium 5.3 mmol/L (3.5-5.1)
[2021-06-28] MEDS ORDERED: FUROSEMIDE 40 MG TAB PO SCH (09:00)
--- NOTE | 2021-06-28 10:24 | P.PN ---
Subjective Patient is seen for follow-up for acute kidney injury. She is maintained on IV Lasix for volume overload. No complaints today. Patient remains on IV Lasix. Leg Swelling has been improving Objective - Vital Signs Vital signs: Vital Signs Temp 97.6 F 06/28/21 08:00 Pulse 66 06/28/21 08:00 Resp 18 06/28/21 08:00 BP 141/65 06/28/21 08:00 Pulse Ox 97 06/28/21 08:00 Intake & Output 06/27/21 06/28/21 06/28/21 18:59 06:59 18:59 Intake Total 356 120 Output Total 500 1250 Balance -144 -1250 120 Intake: Oral 356 120 Output: Urine 500 1250 Other: Voiding Method Toilet Toilet Toilet # Voids 1 1 - Exam On examination patient is comfortable awake alert oriented 3. Not in any acute distress Examination of the heart S1 and S2 Examination lungs bilateral breath sounds are heard [place] abdomen is soft nontender Examination lower extremities shows edema 2+ right leg. Left leg is wrapped. - Labs CBC & Chem 7: 06/28/21 07:36 06/28/21 07:36 Labs: Abnormal Lab Results - Last 24 Hours (Table) 06/27/21 06/27/21 06/27/21 Range/Units 11:59 16:41 20:03 RBC (3.80-5.40) m/uL Hgb (11.4-16.0) gm/dL Hct (34.0-46.0) % MCV (80.0-100.0) fL MCHC (31.0-37.0) g/dL RDW (11.5-15.5) % Sodium (137-145) mmol/L Potassium (3.5-5.1) mmol/L BUN (7-17) mg/dL Creatinine (0.52-1.04) mg/dL Glucose (74-99) mg/dL POC Glucose (mg/dL) 344 H 374 H 155 H (75-99) mg/dL 06/28/21 06/28/21 06/28/21 Range/Units 06:26 07:36 07:36 RBC 2.97 L (3.80-5.40) m/uL Hgb 9.0 L (11.4-16.0) gm/dL Hct 31.1 L (34.0-46.0) % MCV 104.9 H (80.0-100.0) fL MCHC 29.0 L (31.0-37.0) g/dL RDW 16.1 H (11.5-15.5) % Sodium 134 L (137-145) mmol/L Potassium 5.3 H (3.5-5.1) mmol/L BUN 36 H (7-17) mg/dL Creatinine 1.57 H (0.52-1.04) mg/dL Glucose 166 H (74-99) mg/dL POC Glucose (mg/dL) 155 H (75-99) mg/dL Assessment and Plan Assessment: 1. Acute kidney injury secondary to hypotension, cardiorenal. Nonoliguric. Vancomycin level was 16.3 today. UA quite benign on 06/17/2021 2. Acute CHF and top of chronic mostly systolic 3. Cardiomyopathy with EF 40-45% 4. Left lower extremity chronic nonhealing wound/ulcer with cellulitis. Wound cultures growing Citrobacter and Klebsiella. Patient is being followed by ID 5. Anemia, no active bleeding noted, severe iron deficiency noted with iron saturation at 4%, status post IV iron 6. Volume overload currently maintained on Lasix. Plan: Increase dose of Lasix. [place] repeat labs in a.m.
[2021-06-28 11:26] LABS: Glucose,Whole Blood 226 mg/dL (75-99)
[2021-06-28] MEDS: SODIUM HYPOCHLORITE 0.25% 480 ML BOT MISCELLANE SCH (11:54)
[2021-06-28] MEDS: CIPROFLOXACIN HCL 500 MG TAB PO SCH (13:02)
[2021-06-28] MEDS: LACTATED RINGERS 1,000 ML IV SCH (15:22)
--- NOTE | 2021-06-28 15:33 | P.PN ---
Subjective The patient is an 80-year-old female patient with CAD with prior PCI of the mid LAD in 2018, type 2 diabetes, hypertension, dyslipidemia, peripheral vascular disease, prior tobacco use. She follows in the office with Dr. Hsu. Patient admitted to the hospital with lower extremities cellulitis and we consulted to see the patient for shortness of breath patient she was ruled in for acute coronary event. 06/22/2021 The initial plan is to pursue with a heart catheterization later on today but unfortunately the patient developed an episode of TIA/stroke. She underwent a computed tomography scan of the brain and that event continues to be i nvestigated by the neurology service. The heart catheterization would be canceled. MRI of the brain revealed no evidence of recent infarct, oderate chronic small vessel ischemic change. 06/26/2021 Patient seen and examined at bedside, no acute distress. She is experiencing shortness of breath and LE edema. IV Lasix started 06/24, Patient with good urine output. She denies any chest pain. Telemetry reviewed patient is maintaining sinus mechanism. She has been started on anticoagulation with Eliquis. Scr elevated this morning and patient hypotensive Sodium 136, potassium 5.1, BUN 34, serum creatinine 1.7 06/27 Patient seen and examined. No chest pain or SOB. Continued pain in LLE. No palpitations. She did have some mild lightheadedness earlier and discrepancies and right and left blood pressures with right blood pressures been approximately 40 mmHg lower concerning for subclavian stenosis. 06/28 Pt seen and examined. Denies any chest pain or pressure. No shortness breath. Still has low extremity edema but remains fairly similar to when she came in. Transitioned over to oral Lasix yesterday. Admits to good urine output with oral Lasix. GENERAL: In no acute distress. NECK: Supple without JVD or thyromegaly. LUNGS: Breath sounds wheezing bilaterally, mild crackles in the bases auscultation bilaterally. Respiration equal and unlabored. No wheezes, rales or rhonchi. HEART: Regular rate and rhythm without murmurs, rubs or gallops. S1 and S2 heard. EXTREMITIES: Normal range of motion, 1-2+ bilateral lower extremity edema. No clubbing or cyanosis. Peripheral pulses intact. ASSESSMENT New-onset paroxysmal atrial fibrillation, now back in sinus mechanism NSTEMI Cardiomyopathy with an EF of 4045 percent, unclear if ischemic versus nonis chemic at this time Possible TIA, evaluated by neurology, patient with symptoms of Aphasia and dysar thria on 06/22/21. CAD with prior PCI of the mid LAD in 2018 Type 2 diabetes History of Hypertension Dyslipidemia Peripheral vascular disease Prior tobacco use Nonhealing left lower extremity wound, vascular evaluated patient no plans of surgical intervention inpatient Discrepancy of right and left blood pressures by 40 mmHg concerning for subclavian stenosis PLAN Patient appears near euvolemic. Transition over to oral Lasix. Continue Eliquis 5mg BID Continue aspirin, statin, continue beta gil We do not plan on doing a cardiac catheterization this admission due to anemia, kidney disease and patient without symptoms of chest pain Goal BP < 140 by the left BP cuff as right appears lower consistent with subclavian stenosis. No further recommendations from a cardiology standpoint. Please call with any questions. Objective - Vital Signs Vital signs: Vital Signs Temp 97.2 F L 06/28/21 12:00 Pulse 66 06/28/21 14:00 Resp 18 06/28/21 14:00 BP 139/75 06/28/21 12:00 Pulse Ox 96 06/28/21 12:00 Intake & Output 06/27/21 06/28/21 06/28/21 18:59 06:59 18:59 Intake Total 356 120 Output Total 500 1250 Balance -144 -1250 120 Intake: Oral 356 120 Output: Urine 500 1250 Other: Voiding Method Toilet Toilet Toilet # Voids 1 1 2 # Bowel Movements 1 - Labs CBC & Chem 7: 06/28/21 07:36 06/28/21 07:36 Labs: Abnormal Lab Results - Last 24 Hours (Table) 06/27/21 06/27/21 06/28/21 Range/Units 16:41 20:03 06:26 RBC (3.80-5.40) m/uL Hgb (11.4-16.0) gm/dL Hct (34.0-46.0) % MCV (80.0-100.0) fL MCHC (31.0-37.0) g/dL RDW (11.5-15.5) % Sodium (137-145) mmol/L Potassium (3.5-5.1) mmol/L BUN (7-17) mg/dL Creatinine (0.52-1.04) mg/dL Glucose (74-99) mg/dL POC Glucose (mg/dL) 374 H 155 H 155 H (75-99) mg/dL 06/28/21 06/28/21 06/28/21 Range/Units 07:36 07:36 11:25 RBC 2.97 L (3.80-5.40) m/uL Hgb 9.0 L (11.4-16.0) gm/dL Hct 31.1 L (34.0-46.0) % MCV 104.9 H (80.0-100.0) fL MCHC 29.0 L (31.0-37.0) g/dL RDW 16.1 H (11.5-15.5) % Sodium 134 L (137-145) mmol/L Potassium 5.3 H (3.5-5.1) mmol/L BUN 36 H (7-17) mg/dL Creatinine 1.57 H (0.52-1.04) mg/dL Glucose 166 H (74-99) mg/dL POC Glucose (mg/dL) 226 H (75-99) mg/dL
[2021-06-28] MEDS: FUROSEMIDE 40 MG TAB PO SCH (15:56)
--- NOTE | 2021-06-28 16:26 | P.PN ---
Subjective Progress Note Date: 06/28/21 (delayed charting seen at 0900) Principal diagnosis: left leg pain left leg pain Patient is 80-year-old female with diabetes, GERD, and chronic left lower extremity wound followed at the wound care center who presented to the emergency department with severe left leg pain and infected ulcer. Int he ED she was found to have severe sepsis with Lactic acid 6.1 and systolic blood pressure in the 70s. She was subsequently started on IV antibiotics and admitted to the ICU. She was evaluated by infectious disease and vascular surgery. She was seen by cardiology for worsening shortness of breath. She underwent a VQ scan which showed low probability of pulmonary embolism. She underwent an echocardiogram which showed an ejection fraction of 40-45% with hypokinetic left ventricular wall, moderate tricuspid regurgitation, moderate pulmonary hypertension. She is on have elevated troponin and vascular intervention was delayed. She was noted to have worsening creatinine with seen by nephrology who felt that she had cardiorenal syndrome. She was started on Lasix. She was seen by oncology for normocytic anemia. She did have a of paroxysmal atrial fibrillation but converted back to sinus rhythm. Cardiology did not feel she warranted a cardiac cath at this time secondary to her acute renal failure. She was seen by neurology who felt that she may have had a TIA due to her run of A. fib. Patient continued to progress well. Her acute kidney injury and metabolic acidosis were improving. She did receive IV iron. She had increased WBC count after transition to oral antibiotics, which may be due to volume contraction. Images: Tib/fib x- ray: Large ulceration or soft tissue wound all along the medial margin of the left lower extremity with no destructive osseous changes Left foot x-ray: Diffuse osteopenia and soft tissue edema, no destructive changes to suggest osteomyelitis Lower extremity venous Doppler: Unable to obtain TBI as patient would not allow left leg to be touched. Renal ultrasound, limited with no diagnostic evidence of [place], left kidney poorly visualized. MRI of left leg: No diagnostic evidence of osteomyelitis, large soft tissue wound with edema suggestive of cellulitis, edema in the adjacent medial calf mu sculature and myositis involvement of the vasculature is in the differential. VQ scan which showed low probability of pulmonary embolism echocardiogram which showed an ejection fraction of 40-45% with hypokinetic left ventricular wall, moderate tricuspid regurgitation, moderate pulmonary hypertension CT head: Age-related atrophic and chronic small vessel ischemic changes without acute intracranial process. CT head and neck: Moderate proximal left ICA stenosis on the right, mild to moderate bilateral pleural effusions, moderate to severe irregular atherosclerotic stenosis with moderate focal stenosis of the A3 segment of the left IAIN Repeat renal ultrasound: No evidence of hydronephrosis MRI brain: Mild to moderate diffuse cerebral atrophy with moderate chronic small vessel ischemic changes, increasing fluid in the bilateral mastoid air cells Patient seen and examined at bedside. Her edema is improving daily but still present. Breathing is improved, tremor is reduced, eating and drinking well. General: non toxic, no distress, appears at stated age Derm: warm, dry, dressing over left leg Head: atraumatic, normocephalic, symmetric Eyes: EOMI, no lid lag, anicteric sclera Mouth: no lip lesion, mucus membranes moist Cardiovascular: S1S2 reg, no murmur, positive posterior tibial pulse bilateral, Lungs: bs bilateral, no rhonchi, no rales , no accessory muscle use Abdominal: soft, nontender to palpation, no guarding, no appreciable organomegaly Ext: no gross muscle atrophy, 2+ edema bilateral lower extremities, no contractures, Neuro: CN II-XI grossly intact, no focal neuro deficits noted Psych: Alert, oriented, appropriate affect Assessment and plan: Citrobacter and Klebsiella Infected left leg ulcer, diabetic Severe peripheral vascular disease - ID following- cipro and flagyl on discharge for 8 more days - Vascular surgery recs appreciated. Outpatient follow-up at wound care center and then an office. - wound care recs NSTEMI Acute systolic CHF with EF 40-45% New-onset paroxysmal A. fib currently back in sinus rhythm -Possibly type II secondary to demand ischemia -2-D echo showed drop in EF 40-45% with apical anterior, lateral and inferior septal hypokinesis -Heart cath was canceled due to medical conditions -Cardiology recs appreciated, signed off -Lasix to PO -metoprolol - no acei due to PRAVIN -Eliquis Anemia -CBC has been stable, no indication for transfusion -B12 normal, folic acid normal, MMA normal, RBC folate normal, TSH within normal limits -Suspect component of iron deficiency anemia with T sat 4.8, patient's ferritin is 244 but may be falsely elevated due to acute phase reactant. Her overall iron levels are low at 15 and her TIBC is within normal. - Conitnue oral iron therapy, s/p IV iron 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 and hypoglycemia - A1c 8.5 -Basal bolus insulin adjusted -Hold metformin due to severe lactic acidosis, avoid invokana Diabetic peripheral neuropathy -Lyrica increased Dyslipidemia Obesity BMI 34 severe sepsis lactic acidosis Constipation, resolved TIA Carotid stenosis- outpatient follow-up DVT prophylaxis: Eliquis Possible discharge to subacute rehab 06/29. Active Medications Acetaminophen (Acetaminophen Tab 500 Mg Tab) 1,000 mg PO Q6H PRN PRN Reason: Moderate Pain Last Admin: 06/28/21 13:31 Dose: 1,000 mg Documented by: Hydrocodone Bitart/Acetaminophen (Hydrocodone/Apap 5-325mg 1 Each Tab) 1 each PO Q8HR PRN PRN Reason: Pain Last Admin: 06/24/21 20:07 Dose: 1 each Documented by: Albuterol/Ipratropium (Ipratropium-Albuterol 3 Ml Neb) 3 ml INHALATION RT-QID PRN PRN Reason: Shortness Of Breath Or Wheezing Last Admin: 06/23/21 15:51 Dose: 3 ml Documented by: Apixaban (Apixaban 5 Mg Tab) 5 mg PO BID [facility]; Protocol Last Admin: 06/28/21 08:18 Dose: 5 mg Documented by: Ascorbic Acid (Ascorbic Acid 500 Mg Tab) 1,000 mg PO DAILY [facility] Last Admin: 06/28/21 08:17 Dose: 1,000 mg Documented by: Aspirin (Aspirin 81 Mg) 81 mg PO DAILY [facility] Last Admin: 06/28/21 08:17 Dose: 81 mg Documented by: Atorvastatin Calcium (Atorvastatin 80 Mg Tab) 80 mg PO HS [facility] Last Admin: 06/27/21 20:17 Dose: 80 mg Documented by: Bisacodyl (Bisacodyl 5 Mg Tablet.Dr) 5 mg PO DAILY PRN PRN Reason: Constipation Last Admin: 06/25/21 08:44 Dose: 5 mg Documented by: Cholecalciferol (Cholecalciferol 25 Mcg (1000 Iu) Tablet) 50 mcg PO DAILY [facility] Last Admin: 06/28/21 08:17 Dose: 50 mcg Documented by: Ciprofloxacin (Ciprofloxacin Hcl 500 Mg Tab) 500 mg PO Q18H [facility]; Protocol Last Admin: 06/28/21 13:02 Dose: 500 mg Documented by: Cyanocobalamin (Cyanocobalamin 500 Mcg Tab) 2,000 mcg PO DAILY [facility] Last Admin: 06/28/21 08:18 Dose: 2,000 mcg Documented by: Darbepoetin [place] (Darbepoetin [place] 40 Mcg/0.4 Ml Syringe) 40 mcg SQ Q7D [facility] Last Admin: 06/24/21 12:28 Dose: 40 mcg Documented by: Docusate Sodium (Docusate 100 Mg Cap) 100 mg PO BID [facility] Last Admin: 06/28/21 08:17 Dose: 100 mg Documented by: Famotidine (Famotidine 20 Mg Tab) 20 mg PO [facility] Last Admin: 06/27/21 20:17 Dose: 20 mg Documented by: Fenofibrate (Fenofibrate 160 Mg Tab) 160 mg PO DAILY [facility] Last Admin: 06/28/21 08:18 Dose: 160 mg Documented by: Ferrous Sulfate (Ferrous Sulfate 325 Mg Tab) 325 mg PO DAILY [facility] Last Admin: 06/28/21 08:18 Dose: 325 mg Documented by: Fluticasone Propionate (Fluticasone 50mcg/[place] Nasal 16gm) 1 spray EA NOSTRIL DAILY PRN PRN Reason: Allergy Symptoms Furosemide (Furosemide 40 Mg Tab) 40 mg PO BID@0900,1600 [facility] Last Admin: 06/28/21 15:56 Dose: 40 mg Documented by: Lactated Ringer's (Lactated Ringers) 1,000 mls @ 20 mls/hr IV .Q24H [facility] Last Admin: 06/28/21 15:22 Dose: Not Given Documented by: Insulin Aspart (Insulin Aspart (Novolog) 100 Unit/Ml Vial) 0 unit SQ ACHS [facility]; Protocol Last Admin: 06/28/21 11:54 Dose: 3 unit Documented by: Insulin Aspart (Insulin Aspart (Novolog) 100 Unit/Ml Vial) 2 unit SQ AC-TID [facility] Last Admin: 06/28/21 11:54 Dose: 2 unit Documented by: Insulin Detemir (Insulin Detemir (Levemir) 100 Unit/Ml Syr) 15 unit SQ DAILY@0700 [facility] Last Admin: 06/28/21 07:33 Dose: 15 unit Documented by: Insulin Detemir (Insulin Detemir (Levemir) 100 Unit/Ml Syr) 6 unit SQ [facility] Last Admin: 06/27/21 20:17 Dose: 6 unit Documented by: Lactobacillus Acidoph/Bulgaricus (Lactobacillus Acidoph & Bulgar 1 Each Packet) 1 each PO DAILY [facility] Last Admin: 06/28/21 08:18 Dose: 1 each Documented by: Melatonin (Melatonin 3 Mg Tablet) 6 mg PO [facility] Last Admin: 06/27/21 20:17 Dose: 6 mg Documented by: Metoprolol Tartrate (Metoprolol Tartrate 12.5 Mg Tab) 12.5 mg PO BID [facility] Last Admin: 06/28/21 08:18 Dose: 12.5 mg Documented by: Metronidazole (Metronidazole 500 Mg Tab) 500 mg PO TID [facility]; Protocol Last Admin: 06/28/21 15:56 Dose: 500 mg Documented by: Midodrine (Midodrine 5 Mg Tab) 5 mg PO AC-TID [facility] Last Admin: 06/28/21 11:52 Dose: Not Given Documented by: Naloxone HCl (Naloxone 0.4 Mg/Ml 1 Ml Vial) 0.2 mg IV Q2M PRN PRN Reason: Opioid Reversal Ondansetron HCl (Ondansetron 4 Mg/2 Ml Vial) 4 mg IVP Q6H PRN PRN Reason: Nausea Last Admin: 06/18/21 11:32 Dose: 4 mg Documented by: Pantoprazole Sodium (Pantoprazole 40 Mg Tablet) 40 mg PO AC-BRKFST [facility] Last Admin: 06/28/21 06:43 Dose: 40 mg Documented by: Polyethylene Glycol (Polyethylene Glycol 3350 17 Gm Powd.Pack) 17 gm PO DAILY [facility] Last Admin: 06/28/21 08:18 Dose: 17 gm Documented by: Pregabalin (Pregabalin 100 Mg Cap) 100 mg PO BID [facility] Last Admin: 06/28/21 08:17 Dose: 100 mg Documented by: Sodium Hypochlorite (Sodium Hypochlorite 0.25% 480 Ml Bot) 40 ml MISCELLANE DAILY [facility] Last Admin: 06/28/21 11:54 Dose: 40 ml Documented by: Objective - Vital Signs Vital signs: Vital Signs Temp 97.4 F L 06/28/21 15:57 Pulse 66 06/28/21 15:57 Resp 18 06/28/21 15:57 BP 121/56 06/28/21 15:57 Pulse Ox 97 06/28/21 15:57 Intake & Output 06/27/21 06/28/21 06/28/21 18:59 06:59 18:59 Intake Total 356 120 Output Total 500 1250 Balance -144 -1250 120 Intake: Oral 356 120 Output: Urine 500 1250 Other: Voiding Method Toilet Toilet Toilet # Voids 1 1 2 # Bowel Movements 1 - Labs CBC & Chem 7: 06/28/21 07:36 06/28/21 07:36 Labs: Abnormal Lab Results - Last 24 Hours (Table) 06/27/21 06/27/21 06/28/21 Range/Units 16:41 20:03 06:26 RBC (3.80-5.40) m/uL Hgb (11.4-16.0) gm/dL Hct (34.0-46.0) % MCV (80.0-100.0) fL MCHC (31.0-37.0) g/dL RDW (11.5-15.5) % Sodium (137-145) mmol/L Potassium (3.5-5.1) mmol/L BUN (7-17) mg/dL Creatinine (0.52-1.04) mg/dL Glucose (74-99) mg/dL POC Glucose (mg/dL) 374 H 155 H 155 H (75-99) mg/dL 06/28/21 06/28/21 06/28/21 Range/Units 07:36 07:36 11:25 RBC 2.97 L (3.80-5.40) m/uL Hgb 9.0 L (11.4-16.0) gm/dL Hct 31.1 L (34.0-46.0) % MCV 104.9 H (80.0-100.0) fL MCHC 29.0 L (31.0-37.0) g/dL RDW 16.1 H (11.5-15.5) % Sodium 134 L (137-145) mmol/L Potassium 5.3 H (3.5-5.1) mmol/L BUN 36 H (7-17) mg/dL Creatinine 1.57 H (0.52-1.04) mg/dL Glucose 166 H (74-99) mg/dL POC Glucose (mg/dL) 226 H (75-99) mg/dL
[2021-06-28 16:43] LABS: Glucose,Whole Blood 461 mg/dL (75-99)
[2021-06-28 19:52] LABS: Glucose,Whole Blood 299 mg/dL (75-99)
--- NOTE | 2021-06-28 21:58 | US ---
EXAMINATION TYPE: US arterial LE single level DATE OF EXAM: 06/18/2021 9:44 AM CLINICAL HISTORY: nonhealing wound. History of hypertension and coronary artery disease. History of d iabetes and prior heart attack with history of prior vascular surgery. Doppler Waveforms: Right: Monophasic Left: Monophasic Markedly suboptimal study as patient would not tolerate contact. Ankle-Brachial Indices: Right: 0.84 Left: Not assessed Toe Brachial Indices: Not assessed IMPRESSION: Suboptimal nondiagnostic study.
[2021-06-28] MEDS: FAMOTIDINE 20 MG TAB PO SCH (22:24)
[2021-06-28] MEDS: ATORVASTATIN 80 MG TAB PO SCH (22:24)
[2021-06-28] MEDS: MELATONIN 3 MG TABLET PO SCH (22:26)
--- NOTE | 2021-06-28 23:01 | P.PN ---
Subjective Progress Note Date: 06/28/21 Principal diagnosis: Left leg wound and cellulitis Patient is 80 year old female with a past medical history significant for chronic nonhealing wound, left lower extremity admitted to the hospital with worsening pain to the left leg wound concerning for cellulitis. On today's evaluation that is 06/28/2021 the patient remains to be afebrile, the patient denies chest pain, the patient is breathing comfortably on nasal cannula oxygen, the patient denies cough or sputum production patient denies any abdominal pain no diarrhea, patient denies pain to the left lower extremity Objective - Vital Signs Vital signs: Vital Signs Temp 97.3 F L 06/28/21 20:00 Pulse 75 06/28/21 20:00 Resp 18 06/28/21 20:00 BP 143/65 06/28/21 20:00 Pulse Ox 97 06/28/21 20:00 Intake & Output 06/28/21 06/28/21 06/29/21 06:59 18:59 06:59 Intake Total 120 Output Total 1250 450 Balance -1250 120 -450 Intake: Oral 120 Output: Urine 1250 450 Other: Voiding Method Toilet Toilet Toilet # Voids 1 2 2 # Bowel Movements 1 1 - Exam GENERAL DESCRIPTION: An elderly female lying in bed in no distress RESPIRATORY SYSTEM: Unlabored breathing , decreased breath sounds at bases HEART: S1 S2 regular rate and rhythm , ABDOMEN: Soft , no tenderness EXTREMITIES: Left leg wound is currently dressed no drainage on the dressing - Labs CBC & Chem 7: 06/28/21 07:36 06/28/21 07:36 Labs: Abnormal Lab Results - Last 24 Hours (Table) 06/28/21 06/28/21 06/28/21 Range/Units 06:26 07:36 07:36 RBC 2.97 L (3.80-5.40) m/uL Hgb 9.0 L (11.4-16.0) gm/dL Hct 31.1 L (34.0-46.0) % MCV 104.9 H (80.0-100.0) fL MCHC 29.0 L (31.0-37.0) g/dL RDW 16.1 H (11.5-15.5) % Sodium 134 L (137-145) mmol/L Potassium 5.3 H (3.5-5.1) mmol/L BUN 36 H (7-17) mg/dL Creatinine 1.57 H (0.52-1.04) mg/dL Glucose 166 H (74-99) mg/dL POC Glucose (mg/dL) 155 H (75-99) mg/dL 06/28/21 06/28/21 06/28/21 Range/Units 11:25 16:41 19:50 RBC (3.80-5.40) m/uL Hgb (11.4-16.0) gm/dL Hct (34.0-46.0) % MCV (80.0-100.0) fL MCHC (31.0-37.0) g/dL RDW (11.5-15.5) % Sodium (137-145) mmol/L Potassium (3.5-5.1) mmol/L BUN (7-17) mg/dL Creatinine (0.52-1.04) mg/dL Glucose (74-99) mg/dL POC Glucose (mg/dL) 226 H 461 H 299 H (75-99) mg/dL Assessment and Plan (1) Leg wound, left Current Visit: Yes Status: Acute Code(s): S81.802A - UNSPECIFIED OPEN WOUND, LEFT LOWER LEG, INITIAL ENCOUNTER SNOMED Code(s): 247107292 Plan: 1patient with chronic nonhealing wound to the left lower extremity in this patient presented to hospital with increasing pain swelling redness and concern for cellulitis apparently the patient did have a chronic wound and has been exposed to antibiotic will need to cover for both gram-positive as well as gram- negative pathogen. 2MRI did not show any evidence of Osteomyelitis, patient surgical debridement has been put on hold because of cardiac condition 3patient left leg culture grew Citrobacter, Klebsiella and anaerobes, the patient is currently being treated with oral Cipro and Flagyl to continue for about a week on discharge along with local care per vascular surgery Time with Patient: Less than 30
[2021-06-29 06:19] LABS: Glucose,Whole Blood 89 mg/dL (75-99)
[2021-06-29] MEDS: MIDODRINE 5 MG TAB PO SCH ×3 (07:00→18:02)
[2021-06-29] MEDS: PANTOPRAZOLE 40 MG TABLET PO SCH (07:00)
[2021-06-29] MEDS: INSULIN ASPART (NovoLOG) 100 UNIT/ML VIAL SQ SCH ×7 (07:01→22:27)
[2021-06-29 07:24] LABS: HCT 29.3 % (34.0-46.0); HGB 8.8 gm/dL (11.4-16.0); Hypochromasia Marked; MCH 30.2 pg (25.0-35.0); MCHC 30.1 g/dL (31.0-37.0); MCV 100.2 fL (80.0-100.0); Macrocytosis Slight; Mean Platelet Volume 8.3; Platelet Count 526 k/uL (150-450); RBC 2.92 m/uL (3.80-5.40); RDW 15.8 % (11.5-15.5); WBC 8.6 k/uL (3.8-10.6)
[2021-06-29 07:43] LABS: Magnesium 2.4 mg/dL (1.6-2.3); Potassium 5.7 mmol/L (3.5-5.1)
[2021-06-29] MEDS ORDERED: FUROSEMIDE 10 MG/ML 4 ML VIAL IV STA (09:05)
[2021-06-29] MEDS: polyethylene glycoL 3350 17 GM POWD.PACK PO SCH (09:20)
[2021-06-29] MEDS: LACTOBACILLUS ACIDOPH & BULGAR 1 EACH PACKET PO SCH (09:20)
[2021-06-29] MEDS: FERROUS SULFATE 325 MG TAB PO SCH (09:20)
[2021-06-29] MEDS: metroNIDAZOLE 500 MG TAB PO SCH ×3 (09:20→22:26)
[2021-06-29] MEDS: METOPROLOL TARTRATE 12.5 MG TAB PO SCH ×2 (09:20→22:26)
[2021-06-29] MEDS: ASCORBIC ACID 500 MG TAB PO SCH (09:20)
[2021-06-29] MEDS: CHOLECALCIFEROL 25 MCG (1000 IU) TABLET PO SCH (09:20)
[2021-06-29] MEDS: CIPROFLOXACIN HCL 500 MG TAB PO SCH (09:21)
[2021-06-29] MEDS: PREGABALIN 100 MG CAP PO SCH ×2 (09:21→22:26)
[2021-06-29] MEDS: DOCUSATE 100 MG CAP PO SCH ×2 (09:21→22:26)
[2021-06-29] MEDS: CYANOCOBALAMIN 500 MCG TAB PO SCH (09:21)
[2021-06-29] MEDS: FUROSEMIDE 40 MG TAB PO SCH ×2 (09:21→17:51)
[2021-06-29] MEDS: ASPIRIN 81 MG PO SCH (09:21)
[2021-06-29] MEDS: FENOFIBRATE 160 MG TAB PO SCH (09:21)
[2021-06-29] MEDS: APIXABAN 5 MG TAB PO SCH (09:21)
[2021-06-29] MEDS: SODIUM HYPOCHLORITE 0.25% 480 ML BOT MISCELLANE SCH (09:23)
[2021-06-29] MEDS: INSULIN DETEMIR (LEVEMIR) 100 UNIT/ML SYR SQ SCH ×3 (09:46→22:28)
[2021-06-29] MEDS ORDERED: SODIUM ZIRCONIUM CYCLOSILICATE 10 GM PACKET PO ONE (10:00)
[2021-06-29 10:13] LABS: Calcium 8.5 mg/dL (8.4-10.2)
[2021-06-29 10:17] LABS: Potassium 6.1 mmol/L (3.5-5.1)
[2021-06-29] MEDS ORDERED: CALCIUM CHLORIDE 100 MG/ML 10 ML SYRINGE IVP STA (10:19)
--- NOTE | 2021-06-29 10:58 | P.PN ---
Subjective Patient is seen for follow-up for acute kidney injury. She is maintained on IV Lasix for volume overload. No complaints today. Patient wants to go home today. Her potassium was however elevated at 5.7. Blood sugar was high at 347. Objective - Vital Signs Vital signs: Vital Signs Temp 97.3 F L 06/29/21 09:15 Pulse 65 06/29/21 09:15 Resp 20 06/29/21 09:15 BP 92/59 06/29/21 09:15 Pulse Ox 98 06/29/21 09:15 Intake & Output 06/28/21 06/29/21 06/29/21 18:59 06:59 18:59 Intake Total 120 118 Output Total 450 Balance 120 -450 118 Intake: Oral 120 118 Output: Urine 450 Other: Voiding Method Toilet Toilet # Voids 2 1 # Bowel Movements 1 1 - Exam On examination patient is comfortable awake alert oriented 3. Not in any acute distress Examination of the heart S1 and S2 Examination lungs bilateral breath sounds are heard [place] abdomen is soft nontender Examination lower extremities shows edema 2+ right leg. Left leg is wrapped. - Labs CBC & Chem 7: 06/29/21 06:19 06/29/21 09:32 Labs: Abnormal Lab Results - Last 24 Hours (Table) 06/28/21 06/28/21 06/28/21 Range/Units 11:25 16:41 19:50 RBC (3.80-5.40) m/uL Hgb (11.4-16.0) gm/dL Hct (34.0-46.0) % MCV (80.0-100.0) fL MCHC (31.0-37.0) g/dL RDW (11.5-15.5) % Plt Count (150-450) k/uL Sodium (137-145) mmol/L Potassium (3.5-5.1) mmol/L Chloride (98-107) mmol/L BUN (7-17) mg/dL Creatinine (0.52-1.04) mg/dL Glucose (74-99) mg/dL POC Glucose (mg/dL) 226 H 461 H 299 H (75-99) mg/dL Magnesium (1.6-2.3) mg/dL 06/29/21 06/29/21 06/29/21 Range/Units 06:19 06:19 09:32 RBC 2.92 L (3.80-5.40) m/uL Hgb 8.8 L (11.4-16.0) gm/dL Hct 29.3 L (34.0-46.0) % MCV 100.2 H (80.0-100.0) fL MCHC 30.1 L (31.0-37.0) g/dL RDW 15.8 H (11.5-15.5) % Plt Count 526 H (150-450) k/uL Sodium 131 L (137-145) mmol/L Potassium 5.7 H 6.1 H* (3.5-5.1) mmol/L Chloride 97 L (98-107) mmol/L BUN 42 H 41 H (7-17) mg/dL Creatinine 1.64 H 1.60 H (0.52-1.04) mg/dL Glucose 347 H (74-99) mg/dL POC Glucose (mg/dL) (75-99) mg/dL Magnesium 2.4 H (1.6-2.3) mg/dL Assessment and Plan Assessment: 1. Acute kidney injury secondary to hypotension, cardiorenal. Nonoliguric. Vancomycin level was 16.3 today. UA quite benign on 06/17/2021. Serum creatinine stable at about 1,600,000 g/dL 2. Acute CHF and top of chronic mostly systolic 3. Cardiomyopathy with EF 40-45% 4. Left lower extremity chronic nonhealing wound/ulcer with cellulitis. Wound cultures growing Citrobacter and Klebsiella. Patient is being followed by ID 5. Anemia, no active bleeding noted, severe iron deficiency noted with iron sa turation at 4%, status post IV iron 6. Volume overload currently maintained on Lasix. 7. Hyperkalemia associated with acute kidney injury and hyperglycemia. Plan: Lokelma 1 for hyperkalemia Control blood sugars Continue with the Lasix which will help with the hyperkalemia as well Avoid high potassium foods. Repeat potassium later on this evening
[2021-06-29] MEDS ORDERED: CALCIUM GLUCONATE IN NACL 1 GM in SALINE 1 100ML.BAG IVPB ONE (11:00)
[2021-06-29 11:35] LABS: Glucose,Whole Blood 378 mg/dL (75-99)
[2021-06-29 11:42] LABS: Albumin 2.86 g/dL (3.80-4.90); Gamma Globulin 0.56 g/dL (0.70-1.50)
--- NOTE | 2021-06-29 14:16 | P.PN ---
Subjective Progress Note Date: 06/29/21 Principal diagnosis: Anemia Hemoglobin is stable, receiving IV Iron Objective - Vital Signs Vital signs: Vital Signs Temp 97.4 F L 06/29/21 12:00 Pulse 63 06/29/21 12:00 Resp 18 06/29/21 12:00 BP 155/69 06/29/21 12:00 Pulse Ox 96 06/29/21 12:00 Intake & Output 06/28/21 06/29/21 06/29/21 18:59 06:59 18:59 Intake Total 120 118 Output Total 450 Balance 120 -450 118 Intake: Oral 120 118 Output: Urine 450 Other: Voiding Method Toilet Toilet Toilet # Voids 2 1 # Bowel Movements 1 1 - Exam - Constitutional General appearance: Present: cooperative, no acute distress, obese - EENT Eyes: Present: anicteric sclerae, EOMI ENT: Present: hearing grossly normal - Respiratory Details: resp increased with activity Diminished - Musculoskeletal Musculoskeletal: Present: generalized weakness - Psychiatric Psychiatric: Present: A&O x's 3, appropriate affect, intact judgment & insight - Labs CBC & Chem 7: 06/29/21 06:19 06/29/21 09:32 Labs: Abnormal Lab Results - Last 24 Hours (Table) 06/24/21 06/28/21 06/28/21 Range/Units 08:05 16:41 19:50 RBC (3.80-5.40) m/uL Hgb (11.4-16.0) gm/dL Hct (34.0-46.0) % MCV (80.0-100.0) fL MCHC (31.0-37.0) g/dL RDW (11.5-15.5) % Plt Count (150-450) k/uL Sodium (137-145) mmol/L Potassium (3.5-5.1) mmol/L Chloride (98-107) mmol/L BUN (7-17) mg/dL Creatinine (0.52-1.04) mg/dL Glucose (74-99) mg/dL POC Glucose (mg/dL) 461 H 299 H (75-99) mg/dL Magnesium (1.6-2.3) mg/dL Albumin (PEP) 2.86 L (3.80-4.90) g/dL Gamma Globulins 0.56 L (0.70-1.50) g/dL 06/29/21 06/29/21 06/29/21 Range/Units 06:19 06:19 09:32 RBC 2.92 L (3.80-5.40) m/uL Hgb 8.8 L (11.4-16.0) gm/dL Hct 29.3 L (34.0-46.0) % MCV 100.2 H (80.0-100.0) fL MCHC 30.1 L (31.0-37.0) g/dL RDW 15.8 H (11.5-15.5) % Plt Count 526 H (150-450) k/uL Sodium 131 L (137-145) mmol/L Potassium 5.7 H 6.1 H* (3.5-5.1) mmol/L Chloride 97 L (98-107) mmol/L BUN 42 H 41 H (7-17) mg/dL Creatinine 1.64 H 1.60 H (0.52-1.04) mg/dL Glucose 347 H (74-99) mg/dL POC Glucose (mg/dL) (75-99) mg/dL Magnesium 2.4 H (1.6-2.3) mg/dL Albumin (PEP) (3.80-4.90) g/dL Gamma Globulins (0.70-1.50) g/dL 06/29/21 Range/Units 11:34 RBC (3.80-5.40) m/uL Hgb (11.4-16.0) gm/dL Hct (34.0-46.0) % MCV (80.0-100.0) fL MCHC (31.0-37.0) g/dL RDW (11.5-15.5) % Plt Count (150-450) k/uL Sodium (137-145) mmol/L Potassium (3.5-5.1) mmol/L Chloride (98-107) mmol/L BUN (7-17) mg/dL Creatinine (0.52-1.04) mg/dL Glucose (74-99) mg/dL POC Glucose (mg/dL) 378 H (75-99) mg/dL Magnesium (1.6-2.3) mg/dL Albumin (PEP) (3.80-4.90) g/dL Gamma Globulins (0.70-1.50) g/dL Assessment and Plan Plan: Assessment and Plan (1) Normocytic normochromic anemia Narrative/Plan: Miultifactorial related to chronic infection, been on tank terminal gauger abx and has CKD, all of which can contribute to anemia. Saturation is low. Nephrology has ord ered iron. Other labs ordered to complete anemia work up did not reveal any other deficiencies. Improved hemoglobin 8.8 today Current Visit: Yes Status: Acute Priority: High Code(s): D64.9 - ANEMIA, UNSPECIFIED SNOMED Code(s): 44417852
[2021-06-29 16:29] LABS: Glucose,Whole Blood 292 mg/dL (75-99)
[2021-06-29 20:16] LABS: Glucose,Whole Blood 279 mg/dL (75-99)
--- NOTE | 2021-06-29 20:37 | P.PN ---
Subjective Progress Note Date: 06/29/21 (delayed charting seen at 1055) Principal diagnosis: left leg pain left leg pain Patient is 80-year-old female with diabetes, GERD, and chronic left lower extremity wound followed at the wound care center who presented to the emergency department with severe left leg pain and infected ulcer. Int he ED she was found to have severe sepsis with Lactic acid 6.1 and systolic blood pressure in the 70s. She was subsequently started on IV antibiotics and admitted to the ICU. She was evaluated by infectious disease and vascular surgery. She was seen by cardiology for worsening shortness of breath. She underwent a VQ scan which showed low probability of pulmonary embolism. She underwent an echocardiogram which showed an ejection fraction of 40-45% with hypokinetic left ventricular wall, moderate tricuspid regurgitation, moderate pulmonary hypertension. She is on have elevated troponin and vascular intervention was delayed. She was noted to have worsening creatinine with seen by nephrology who felt that she had cardiorenal syndrome. She was started on Lasix. She was seen by oncology for normocytic anemia. She did have a of paroxysmal atrial fibrillation but converted back to sinus rhythm. Cardiology did not feel she warranted a cardiac cath at this time secondary to her acute renal failure. She was seen by neurology who felt that she may have had a TIA due to her run of A. fib. Patient continued to progress well. Her acute kidney injury and metabolic acidosis were improving. She did receive IV iron. She had increased WBC count after transition to oral antibiotics, which may be due to volume contraction. Images: Tib/fib x- ray: Large ulceration or soft tissue wound all along the medial margin of the left lower extremity with no destructive osseous changes Left foot x-ray: Diffuse osteopenia and soft tissue edema, no destructive changes to suggest osteomyelitis Lower extremity venous Doppler: Unable to obtain TBI as patient would not allow left leg to be touched. Renal ultrasound, limited with no diagnostic evidence of [place], left kidney poorly visualized. MRI of left leg: No diagnostic evidence of osteomyelitis, large soft tissue wound with edema suggestive of cellulitis, edema in the adjacent medial calf mu sculature and myositis involvement of the vasculature is in the differential. VQ scan which showed low probability of pulmonary embolism echocardiogram which showed an ejection fraction of 40-45% with hypokinetic left ventricular wall, moderate tricuspid regurgitation, moderate pulmonary hypertension CT head: Age-related atrophic and chronic small vessel ischemic changes without acute intracranial process. CT head and neck: Moderate proximal left ICA stenosis on the right, mild to moderate bilateral pleural effusions, moderate to severe irregular atherosclerotic stenosis with moderate focal stenosis of the A3 segment of the left IAIN Repeat renal ultrasound: No evidence of hydronephrosis MRI brain: Mild to moderate diffuse cerebral atrophy with moderate chronic small vessel ischemic changes, increasing fluid in the bilateral mastoid air cells Patient seen and examined at bedside. Her edema is improving daily but still present. Breathing is improved, tremor is reduced, eating and drinking well. General: non toxic, no distress, appears at stated age Derm: warm, dry, dressing over left leg Head: atraumatic, normocephalic, symmetric Eyes: EOMI, no lid lag, anicteric sclera Mouth: no lip lesion, mucus membranes moist Cardiovascular: S1S2 reg, no murmur, positive posterior tibial pulse bilateral, Lungs: bs bilateral, no rhonchi, no rales , no accessory muscle use Abdominal: soft, nontender to palpation, no guarding, no appreciable organomegaly Ext: no gross muscle atrophy, 2+ edema bilateral lower extremities, no contractures, Neuro: CN II-XI grossly intact, no focal neuro deficits noted Psych: Alert, oriented, appropriate affect Assessment and plan: Citrobacter and Klebsiella Infected left leg ulcer, diabetic Severe peripheral vascular disease - ID following- cipro and flagyl on discharge for 7 more days - Vascular surgery recs appreciated. Outpatient follow-up at wound care center and then an office. - wound care recs Hyperkalemia - s/p calcium gluconate and lokalema - follow labs - nephro recs appreciated. NSTEMI Acute systolic CHF with EF 40-45% New-onset paroxysmal A. fib currently back in sinus rhythm -Possibly type II secondary to demand ischemia -2-D echo showed drop in EF 40-45% with apical anterior, lateral and inferior septal hypokinesis -Heart cath was canceled due to medical conditions -Cardiology recs appreciated, signed off -Lasix to PO -metoprolol - no acei due to PRAVIN -Eliquis Anemia -CBC has been stable, no indication for transfusion -B12 normal, folic acid normal, MMA normal, RBC folate normal, TSH within normal limits -Suspect component of iron deficiency anemia with T sat 4.8, patient's ferritin is 244 but may be falsely elevated due to acute phase reactant. Her overall iron levels are low at 15 and her TIBC is within normal. 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 Active Medications Acetaminophen (Acetaminophen Tab 500 Mg Tab) 1,000 mg PO Q6H PRN PRN Reason: Moderate Pain Last Admin: 06/28/21 22:28 Dose: 1,000 mg Documented by: Hydrocodone Bitart/Acetaminophen (Hydrocodone/Apap 5-325mg 1 Each Tab) 1 each PO Q8HR PRN PRN Reason: Pain Last Admin: 06/24/21 20:07 Dose: 1 each Documented by: Albuterol/Ipratropium (Ipratropium-Albuterol 3 Ml Neb) 3 ml INHALATION RT-QID PRN PRN Reason: Shortness Of Breath Or Wheezing Last Admin: 06/23/21 15:51 Dose: 3 ml Documented by: Apixaban (Apixaban 2.5 Mg Tablet) 2.5 mg PO BID [facility]; Protocol Ascorbic Acid (Ascorbic Acid 500 Mg Tab) 1,000 mg PO DAILY [facility] Last Admin: 06/29/21 09:20 Dose: 1,000 mg Documented by: Aspirin (Aspirin 81 Mg) 81 mg PO DAILY [facility] Last Admin: 06/29/21 09:21 Dose: 81 mg Documented by: Atorvastatin Calcium (Atorvastatin 80 Mg Tab) 80 mg PO HS [facility] Last Admin: 06/28/21 22:24 Dose: 80 mg Documented by: Bisacodyl (Bisacodyl 5 Mg Tablet.) 5 mg PO DAILY PRN PRN Reason: Constipation Last Admin: 06/25/21 08:44 Dose: 5 mg Documented by: Cholecalciferol (Cholecalciferol 25 Mcg (1000 Iu) Tablet) 50 mcg PO DAILY [facility] Last Admin: 06/29/21 09:20 Dose: 50 mcg Documented by: Ciprofloxacin (Ciprofloxacin Hcl 500 Mg Tab) 500 mg PO Q18H [facility]; Protocol Last Admin: 06/29/21 09:21 Dose: 500 mg Documented by: Cyanocobalamin (Cyanocobalamin 500 Mcg Tab) 2,000 mcg PO DAILY [facility] Last Admin: 06/29/21 09:21 Dose: 2,000 mcg Documented by: Darbepoetin Spencer (Darbepoetin Spencer 40 Mcg/0.4 Ml Syringe) 40 mcg SQ Q7D [facility] Last Admin: 06/24/21 12:28 Dose: 40 mcg Documented by: Docusate Sodium (Docusate 100 Mg Cap) 100 mg PO BID [facility] Last Admin: 06/29/21 09:21 Dose: 100 mg Documented by: Famotidine (Famotidine 20 Mg Tab) 20 mg PO [facility] Last Admin: 06/28/21 22:24 Dose: 20 mg Documented by: Fenofibrate (Fenofibrate 160 Mg Tab) 160 mg PO DAILY [facility] Last Admin: 06/29/21 09:21 Dose: 160 mg Documented by: Ferrous Sulfate (Ferrous Sulfate 325 Mg Tab) 325 mg PO DAILY [facility] Last Admin: 06/29/21 09:20 Dose: 325 mg Documented by: Fluticasone Propionate (Fluticasone 50mcg/[place] Nasal 16gm) 1 spray EA NOSTRIL DAILY PRN PRN Reason: Allergy Symptoms Furosemide (Furosemide 40 Mg Tab) 40 mg PO BID@0900,1600 [facility] Last Admin: 06/29/21 17:51 Dose: 40 mg Documented by: Lactated Ringer's (Lactated Ringers) 1,000 mls @ 20 mls/hr IV .Q24H [facility] Last Admin: 06/28/21 15:22 Dose: Not Given Documented by: Insulin Aspart (Insulin Aspart (Novolog) 100 Unit/Ml Vial) 0 unit SQ ACHS [facility]; Protocol Last Admin: 06/29/21 17:52 Dose: 5 unit Documented by: Insulin Aspart (Insulin Aspart (Novolog) 100 Unit/Ml Vial) 4 unit SQ AC-TID [facility] Last Admin: 06/29/21 17:51 Dose: 4 unit Documented by: Insulin Detemir (Insulin Detemir (Levemir) 100 Unit/Ml Syr) 10 unit SQ [facility] Last Admin: 06/28/21 22:25 Dose: 10 unit Documented by: Insulin Detemir (Insulin Detemir (Levemir) 100 Unit/Ml Syr) 12 unit SQ DAILY@0700 [facility] Last Admin: 06/29/21 09:46 Dose: 12 unit Documented by: Lactobacillus Acidoph/Bulgaricus (Lactobacillus Acidoph & Bulgar 1 Each Packet) 1 each PO DAILY [facility] Last Admin: 06/29/21 09:20 Dose: Not Given Documented by: Melatonin (Melatonin 3 Mg Tablet) 6 mg PO HS [facility] Last Admin: 06/28/21 22:26 Dose: Not Given Documented by: Metoprolol Tartrate (Metoprolol Tartrate 12.5 Mg Tab) 12.5 mg PO BID [facility] Last Admin: 06/29/21 09:20 Dose: 12.5 mg Documented by: Metronidazole (Metronidazole 500 Mg Tab) 500 mg PO TID [facility]; Protocol Last Admin: 06/29/21 17:51 Dose: 500 mg Documented by: Midodrine (Midodrine 5 Mg Tab) 5 mg PO AC-TID [facility] Last Admin: 06/29/21 18:02 Dose: Not Given Documented by: Naloxone HCl (Naloxone 0.4 Mg/Ml 1 Ml Vial) 0.2 mg IV Q2M PRN PRN Reason: Opioid Reversal Ondansetron HCl (Ondansetron 4 Mg/2 Ml Vial) 4 mg IVP Q6H PRN PRN Reason: Nausea Last Admin: 06/18/21 11:32 Dose: 4 mg Documented by: Pantoprazole Sodium (Pantoprazole 40 Mg Tablet) 40 mg PO AC-BRKFST [facility] Last Admin: 06/29/21 07:00 Dose: 40 mg Documented by: Polyethylene Glycol (Polyethylene Glycol 3350 17 Gm Powd.Pack) 17 gm PO DAILY [facility] Last Admin: 06/29/21 09:20 Dose: 17 gm Documented by: Pregabalin (Pregabalin 100 Mg Cap) 100 mg PO BID [facility] Last Admin: 06/29/21 09:21 Dose: 100 mg Documented by: Sodium Hypochlorite (Sodium Hypochlorite 0.25% 480 Ml Bot) 40 ml MISCELLANE DAILY [facility] Last Admin: 06/29/21 09:23 Dose: Not Given Documented by: Objective - Vital Signs Vital signs: Vital Signs Temp 97.8 F 06/29/21 20:00 Pulse 77 06/29/21 20:00 Resp 20 06/29/21 20:00 BP 147/79 06/29/21 20:00 Pulse Ox 99 06/29/21 20:00 Intake & Output 06/29/21 06/29/21 06/30/21 06:59 18:59 06:59 Intake Total 118 Output Total 450 Balance -450 118 Intake: Oral 118 Output: Urine 450 Other: Voiding Method Toilet Toilet Toilet # Voids 1 2 # Bowel Movements 1 - Labs CBC & Chem 7: 06/29/21 06:19 06/29/21 09:32 Labs: Abnormal Lab Results - Last 24 Hours (Table) 06/24/21 06/29/21 06/29/21 Range/Units 08:05 06:19 06:19 RBC 2.92 L (3.80-5.40) m/uL Hgb 8.8 L (11.4-16.0) gm/dL Hct 29.3 L (34.0-46.0) % MCV 100.2 H (80.0-100.0) fL MCHC 30.1 L (31.0-37.0) g/dL RDW 15.8 H (11.5-15.5) % Plt Count 526 H (150-450) k/uL Sodium (137-145) mmol/L Potassium 5.7 H (3.5-5.1) mmol/L Chloride (98-107) mmol/L BUN 42 H (7-17) mg/dL Creatinine 1.64 H (0.52-1.04) mg/dL Glucose (74-99) mg/dL POC Glucose (mg/dL) (75-99) mg/dL Magnesium 2.4 H (1.6-2.3) mg/dL Albumin (PEP) 2.86 L (3.80-4.90) g/dL Gamma Globulins 0.56 L (0.70-1.50) g/dL 06/29/21 06/29/21 06/29/21 Range/Units 09:32 11:34 16:28 RBC (3.80-5.40) m/uL Hgb (11.4-16.0) gm/dL Hct (34.0-46.0) % MCV (80.0-100.0) fL MCHC (31.0-37.0) g/dL RDW (11.5-15.5) % Plt Count (150-450) k/uL Sodium 131 L (137-145) mmol/L Potassium 6.1 H* (3.5-5.1) mmol/L Chloride 97 L (98-107) mmol/L BUN 41 H (7-17) mg/dL Creatinine 1.60 H (0.52-1.04) mg/dL Glucose 347 H (74-99) mg/dL POC Glucose (mg/dL) 378 H 292 H (75-99) mg/dL Magnesium (1.6-2.3) mg/dL Albumin (PEP) (3.80-4.90) g/dL Gamma Globulins (0.70-1.50) g/dL 06/29/21 Range/Units 20:14 RBC (3.80-5.40) m/uL Hgb (11.4-16.0) gm/dL Hct (34.0-46.0) % MCV (80.0-100.0) fL MCHC (31.0-37.0) g/dL RDW (11.5-15.5) % Plt Count (150-450) k/uL Sodium (137-145) mmol/L Potassium (3.5-5.1) mmol/L Chloride (98-107) mmol/L BUN (7-17) mg/dL Creatinine (0.52-1.04) mg/dL Glucose (74-99) mg/dL POC Glucose (mg/dL) 279 H (75-99) mg/dL Magnesium (1.6-2.3) mg/dL Albumin (PEP) (3.80-4.90) g/dL Gamma Globulins (0.70-1.50) g/dL
--- NOTE | 2021-06-29 22:10 | P.PN ---
Subjective Progress Note Date: 06/29/21 Principal diagnosis: Left leg wound and cellulitis Patient is 80 year old female with a past medical history significant for chronic nonhealing wound, left lower extremity admitted to the hospital with worsening pain to the left leg wound concerning for cellulitis. On today's evaluation that is 06/29/2021 the patient continues to be afebrile, the patient denies chest pain, the patient is breathing comfortably on room ear, the patient denies cough or sputum production patient denies any abdominal pain no diarrhea, patient pain to the left lower extremity is currently controlled Objective - Vital Signs Vital signs: Vital Signs Temp 97.4 F L 06/29/21 12:00 Pulse 63 06/29/21 12:00 Resp 18 06/29/21 12:00 BP 155/69 06/29/21 12:00 Pulse Ox 96 06/29/21 12:00 Intake & Output 06/28/21 06/29/21 06/29/21 18:59 06:59 18:59 Intake Total 120 118 Output Total 450 Balance 120 -450 118 Intake: Oral 120 118 Output: Urine 450 Other: Voiding Method Toilet Toilet Toilet # Voids 2 1 # Bowel Movements 1 1 - Exam GENERAL DESCRIPTION: An elderly female lying in bed in no distress RESPIRATORY SYSTEM: Unlabored breathing , decreased breath sounds at bases HEART: S1 S2 regular rate and rhythm , ABDOMEN: Soft , no tenderness EXTREMITIES: Left leg wound is currently dressed no drainage on the dressing - Labs CBC & Chem 7: 06/29/21 06:19 06/29/21 09:32 Labs: Abnormal Lab Results - Last 24 Hours (Table) 06/24/21 06/28/21 06/28/21 Range/Units 08:05 16:41 19:50 RBC (3.80-5.40) m/uL Hgb (11.4-16.0) gm/dL Hct (34.0-46.0) % MCV (80.0-100.0) fL MCHC (31.0-37.0) g/dL RDW (11.5-15.5) % Plt Count (150-450) k/uL Sodium (137-145) mmol/L Potassium (3.5-5.1) mmol/L Chloride (98-107) mmol/L BUN (7-17) mg/dL Creatinine (0.52-1.04) mg/dL Glucose (74-99) mg/dL POC Glucose (mg/dL) 461 H 299 H (75-99) mg/dL Magnesium (1.6-2.3) mg/dL Albumin (PEP) 2.86 L (3.80-4.90) g/dL Gamma Globulins 0.56 L (0.70-1.50) g/dL 06/29/21 06/29/21 06/29/21 Range/Units 06:19 06:19 09:32 RBC 2.92 L (3.80-5.40) m/uL Hgb 8.8 L (11.4-16.0) gm/dL Hct 29.3 L (34.0-46.0) % MCV 100.2 H (80.0-100.0) fL MCHC 30.1 L (31.0-37.0) g/dL RDW 15.8 H (11.5-15.5) % Plt Count 526 H (150-450) k/uL Sodium 131 L (137-145) mmol/L Potassium 5.7 H 6.1 H* (3.5-5.1) mmol/L Chloride 97 L (98-107) mmol/L BUN 42 H 41 H (7-17) mg/dL Creatinine 1.64 H 1.60 H (0.52-1.04) mg/dL Glucose 347 H (74-99) mg/dL POC Glucose (mg/dL) (75-99) mg/dL Magnesium 2.4 H (1.6-2.3) mg/dL Albumin (PEP) (3.80-4.90) g/dL Gamma Globulins (0.70-1.50) g/dL 06/29/21 Range/Units 11:34 RBC (3.80-5.40) m/uL Hgb (11.4-16.0) gm/dL Hct (34.0-46.0) % MCV (80.0-100.0) fL MCHC (31.0-37.0) g/dL RDW (11.5-15.5) % Plt Count (150-450) k/uL Sodium (137-145) mmol/L Potassium (3.5-5.1) mmol/L Chloride (98-107) mmol/L BUN (7-17) mg/dL Creatinine (0.52-1.04) mg/dL Glucose (74-99) mg/dL POC Glucose (mg/dL) 378 H (75-99) mg/dL Magnesium (1.6-2.3) mg/dL Albumin (PEP) (3.80-4.90) g/dL Gamma Globulins (0.70-1.50) g/dL Assessment and Plan (1) Leg wound, left Current Visit: Yes Status: Acute Code(s): S81.802A - UNSPECIFIED OPEN WOUND, LEFT LOWER LEG, INITIAL ENCOUNTER SNOMED Code(s): 871444787 Plan: 1patient with chronic nonhealing wound to the left lower extremity in this patient presented to hospital with increasing pain swelling redness and concern for cellulitis apparently the patient did have a chronic wound and has been exposed to antibiotic will need to cover for both gram-positive as well as gram- negative pathogen. 2MRI did not show any evidence of Osteomyelitis, patient surgical debridement has been put on hold because of cardiac condition 3patient left leg culture grew Citrobacter, Klebsiella and anaerobes, the patient to continue with oral Cipro and Flagyl to continue for about a week on discharge , local care per vascular surgery to close outpatient follow-up Time with Patient: Less than 30
[2021-06-29 22:15] LABS: Calcium 8.8 mg/dL (8.4-10.2); Potassium 5.6 mmol/L (3.5-5.1)
[2021-06-29] MEDS: FAMOTIDINE 20 MG TAB PO SCH (22:26)
[2021-06-29] MEDS: ATORVASTATIN 80 MG TAB PO SCH (22:26)
[2021-06-29] MEDS: APIXABAN 2.5 MG TABLET PO SCH (22:28)
[2021-06-29] MEDS: MELATONIN 3 MG TABLET PO SCH (22:29)
[2021-06-30] MEDS: CIPROFLOXACIN HCL 500 MG TAB PO SCH (04:00)
[2021-06-30 06:19] LABS: Glucose,Whole Blood 206 mg/dL (75-99)
[2021-06-30] MEDS: INSULIN ASPART (NovoLOG) 100 UNIT/ML VIAL SQ SCH ×4 (06:52→12:26)
[2021-06-30] MEDS: INSULIN DETEMIR (LEVEMIR) 100 UNIT/ML SYR SQ SCH (06:54)
[2021-06-30] MEDS: PANTOPRAZOLE 40 MG TABLET PO SCH (06:54)
[2021-06-30] MEDS: MIDODRINE 5 MG TAB PO SCH ×2 (06:54→12:01)
[2021-06-30] MEDS ORDERED: INSULIN DETEMIR (LEVEMIR) 100 UNIT/ML SYR SQ SCH (07:00)
[2021-06-30 08:05] LABS: Anisocytosis Slight; Basophils # (A) 0.1 k/uL (0-0.2); Basophils % (A) 1 %; Eosinophils # (A) 0.4 k/uL (0-0.7); Eosinophils % (A) 5 %; HCT 32.8 % (34.0-46.0); HGB 9.9 gm/dL (11.4-16.0); Hypochromasia Marked; Lymphocytes # (A) 2.1 k/uL (1.0-4.8); Lymphocytes % (A) 26 %; MCH 30.2 pg (25.0-35.0); MCHC 30.2 g/dL (31.0-37.0); Macrocytosis Slight; Mean Platelet Volume 8.1; Monocytes # (A) 0.4 k/uL (0-1.0); Monocytes % (A) 5 %; Neutrophils # (A) 4.7 k/uL (1.3-7.7); Neutrophils % (A) 60 %; Platelet Count 613 k/uL (150-450); RBC 3.28 m/uL (3.80-5.40); RDW 16.4 % (11.5-15.5); WBC 7.9 k/uL (3.8-10.6)
[2021-06-30] MEDS: LACTATED RINGERS 1,000 ML IV SCH (08:11)
[2021-06-30] MEDS: FUROSEMIDE 40 MG TAB PO SCH (08:18)
[2021-06-30] MEDS: APIXABAN 2.5 MG TABLET PO SCH (08:18)
[2021-06-30] MEDS: ASCORBIC ACID 500 MG TAB PO SCH (08:18)
[2021-06-30] MEDS: ACETAMINOPHEN TAB 500 MG TAB PO PRN (08:18)
[2021-06-30] MEDS: FERROUS SULFATE 325 MG TAB PO SCH (08:18)
[2021-06-30] MEDS: CYANOCOBALAMIN 500 MCG TAB PO SCH (08:18)
[2021-06-30] MEDS: CHOLECALCIFEROL 25 MCG (1000 IU) TABLET PO SCH (08:19)
[2021-06-30] MEDS: PREGABALIN 100 MG CAP PO SCH (08:19)
[2021-06-30] MEDS: ASPIRIN 81 MG PO SCH (08:19)
[2021-06-30] MEDS: metroNIDAZOLE 500 MG TAB PO SCH (08:19)
[2021-06-30] MEDS: polyethylene glycoL 3350 17 GM POWD.PACK PO SCH (08:19)
[2021-06-30] MEDS: FENOFIBRATE 160 MG TAB PO SCH (08:19)
[2021-06-30] MEDS: DOCUSATE 100 MG CAP PO SCH (08:19)
[2021-06-30] MEDS: METOPROLOL TARTRATE 12.5 MG TAB PO SCH (08:19)
[2021-06-30 08:20] LABS: Albumin 3.9 g/dL (3.5-5.0); Calcium 9.3 mg/dL (8.4-10.2); Magnesium 2.3 mg/dL (1.6-2.3); Potassium 5.1 mmol/L (3.5-5.1); Total Bilirubin 0.4 mg/dL (0.2-1.3); Total Protein 7.1 g/dL (6.3-8.2)
[2021-06-30] MEDS: LACTOBACILLUS ACIDOPH & BULGAR 1 EACH PACKET PO SCH (08:20)
[2021-06-30 08:51] VITALS: RESP 20
--- NOTE | 2021-06-30 10:54 | P.PN ---
Subjective Patient is seen for follow-up for acute kidney injury. She is maintained on IV Lasix for volume overload. No complaints today. Patient was being considered for discharge yesterday however her potassium was elevated at 5.7 and repeat at 6.1. Blood sugars had been running high with blood sugar in the 400 range the day before that and then about 300 yesterday. There was one reading of 89 noted as well. Patient received a dose of. This morning potassium is down to 5.1. Patient is complaining of pain in her left ankle. She is quite tearful about it. No history of trauma. Objective - Vital Signs Vital signs: Vital Signs Temp 97.9 F 06/30/21 08:00 Pulse 78 06/30/21 08:00 Resp 20 06/30/21 08:00 BP 148/66 06/30/21 08:00 Pulse Ox 98 06/30/21 08:00 Intake & Output 06/29/21 06/30/21 06/30/21 18:59 06:59 18:59 Intake Total 118 240 Balance 118 240 Intake: Oral 118 240 Other: Voiding Method Toilet Toilet # Voids 2 1 - Exam On examination patient is comfortable awake alert oriented 3. Not in any acute distress Examination of the heart S1 and S2 Examination lungs bilateral breath sounds are heard [place] abdomen is soft nontender Examination lower extremities shows edema 2+ right leg. Left leg is wrapped. - Labs CBC & Chem 7: 06/30/21 07:36 06/30/21 07:36 Labs: Abnormal Lab Results - Last 24 Hours (Table) 06/24/21 06/29/21 06/29/21 Range/Units 08:05 11:34 16:28 RBC (3.80-5.40) m/uL Hgb (11.4-16.0) gm/dL Hct (34.0-46.0) % MCHC (31.0-37.0) g/dL RDW (11.5-15.5) % Plt Count (150-450) k/uL Sodium (137-145) mmol/L Potassium (3.5-5.1) mmol/L Chloride (98-107) mmol/L BUN (7-17) mg/dL Creatinine (0.52-1.04) mg/dL Glucose (74-99) mg/dL POC Glucose (mg/dL) 378 H 292 H (75-99) mg/dL Albumin (PEP) 2.86 L (3.80-4.90) g/dL Gamma Globulins 0.56 L (0.70-1.50) g/dL 06/29/21 06/29/21 06/30/21 Range/Units 20:14 21:32 06:17 RBC (3.80-5.40) m/uL Hgb (11.4-16.0) gm/dL Hct (34.0-46.0) % MCHC (31.0-37.0) g/dL RDW (11.5-15.5) % Plt Count (150-450) k/uL Sodium 131 L (137-145) mmol/L Potassium 5.6 H (3.5-5.1) mmol/L Chloride 94 L (98-107) mmol/L BUN 43 H (7-17) mg/dL Creatinine 1.57 H (0.52-1.04) mg/dL Glucose 197 H (74-99) mg/dL POC Glucose (mg/dL) 279 H 206 H (75-99) mg/dL Albumin (PEP) (3.80-4.90) g/dL Gamma Globulins (0.70-1.50) g/dL 06/30/21 06/30/21 Range/Units 07:36 07:36 RBC 3.28 L (3.80-5.40) m/uL Hgb 9.9 L (11.4-16.0) gm/dL Hct 32.8 L (34.0-46.0) % MCHC 30.2 L (31.0-37.0) g/dL RDW 16.4 H (11.5-15.5) % Plt Count 613 H (150-450) k/uL Sodium 135 L (137-145) mmol/L Potassium (3.5-5.1) mmol/L Chloride (98-107) mmol/L BUN 42 H (7-17) mg/dL Creatinine 1.65 H (0.52-1.04) mg/dL Glucose 150 H (74-99) mg/dL POC Glucose (mg/dL) (75-99) mg/dL Albumin (PEP) (3.80-4.90) g/dL Gamma Globulins (0.70-1.50) g/dL Assessment and Plan Assessment: 1. Acute kidney injury secondary to hypotension, cardiorenal. Nonoliguric. Vancomycin level was 16.3 today. UA quite benign on 06/17/2021. Serum creatinine stable at about 1,600,000 g/dL 2. Acute CHF and top of chronic mostly systolic 3. Cardiomyopathy with EF 40-45% 4. Left lower extremity chronic nonhealing wound/ulcer with cellulitis. Wound cultures growing Citrobacter and Klebsiella. Patient is being followed by ID 5. Anemia, no active bleeding noted, severe iron deficiency noted with iron saturation at 4%, status post IV iron 6. Volume overload currently maintained on Lasix. 7. Hyperkalemia associated with acute kidney injury and hyperglycemia., Improved Plan: Control blood sugars Continue with the Lasix which will help with the hyperkalemia as well Avoid high potassium foods. Okay for discharge from nephrology standpoint
[2021-06-30 11:54] VITALS: BP 143/65; PULSE 64; TEMP 97.3
[2021-06-30 12:00] LABS: Glucose,Whole Blood 140 mg/dL (75-99)
[2021-06-30] MEDS: SODIUM HYPOCHLORITE 0.25% 480 ML BOT MISCELLANE SCH (12:26)
--- NOTE | 2021-06-30 13:48 | P.DS ---
Providers Date of admission: 06/17/21 13:16 Expected date of discharge: 06/30/21 Attending physician: Anjelica Jaramillo, DO Consults: 06/17/21 14:15 Consult Physician Routine Consulting Provider: Francoise Triana Consult Reason/Comments: non healing leg ulcer Do you want consulting provider notified?: Yes 06/17/21 14:16 Consult Physician Routine Consulting Provider: Rosangela Rodriguez Consult Reason/Comments: non healing left lower ext ulcer ? oseomylitis Do you want consulting provider notified?: Yes 06/17/21 15:08 Consult Physician Stat Consulting Provider: Jerzy Comer Consult Reason/Comments: ICU management Do you want consulting provider notified?: Already Contacted 06/17/21 15:14 Consult Physician Routine Consulting Provider: Jerzy Comer Consult Reason/Comments: ICU Do you want consulting provider notified?: Already Contacted 06/17/21 15:15 Consult Physician Routine Consulting Provider: Rosangela Rodriguez Consult Reason/Comments: Sepsis Do you want consulting provider notified?: Yes 06/20/21 12:44 Consult Physician Routine Consulting Provider: Keren Bledsoe Consult Reason/Comments: abn kidney fx Do you want consulting provider notified?: Yes 06/20/21 16:03 Consult Physician Routine Consulting Provider: Keren Bledsoe Consult Reason/Comments: PRAVIN Do you want consulting provider notified?: Yes 06/21/21 11:23 Consult Physician Routine Consulting Provider: Eric Hamilton Consult Reason/Comments: anemia Do you want consulting provider notified?: Yes 06/22/21 10:34 Consult Physician Routine Consulting Provider: Jerzy Comer Consult Reason/Comments: bilateral pleural effusion Do you want consulting provider notified?: Yes 06/22/21 12:20 Consult Physician Routine Consulting Provider: Raji Comer Consult Reason/Comments: altered mental status/ s/p stroke alert Do you want consulting provider notified?: Yes Primary care physician: Rachelle Pardo MD Hospital Course: Discharge Diagnosis: Citrobacter and Klebsiella Infected left leg ulcer, diabetic Severe peripheral vascular disease Hyperkalemia NSTEMI Acute systolic CHF with EF 40-45% New-onset paroxysmal A. fib currently back in sinus rhythm Anemia- multifactorial, needs outpatient follow-up in 4-6 weeks to assess for improvement Acute kidney injury due to cardio renal syndrome and hypotension Insulin-dependent type 2 diabetes mellitus with uncontrolled hyperglycemia and hypoglycemia Diabetic peripheral neuropathy Dyslipidemia Obesity BMI 34 severe sepsis lactic acidosis Constipation, resolved TIA Carotid stenosis- outpatient follow-up Hospital Course: Patient is 80-year-old female with diabetes, GERD, and chronic left lower extremity wound followed at the wound care center who presented to the emergency department with severe left leg pain and infected ulcer. Int he ED she was found to have severe sepsis with Lactic acid 6.1 and systolic blood pressure in the 70s. She was subsequently started on IV antibiotics and admitted to the ICU. She was evaluated by infectious disease and vascular surgery. She was seen by cardiology for worsening shortness of breath. She underwent a VQ scan which showed low probability of pulmonary embolism. She underwent an echocardiogram which showed an ejection fraction of 40-45% with hypokinetic left ventricular wall, moderate tricuspid regurgitation, moderate pulmonary hypertension. She is on have elevated troponin and vascular intervention was delayed. She was noted to have worsening creatinine with seen by nephrology who felt that she had cardiorenal syndrome. She was started on Lasix. She was seen by oncology for normocytic anemia. She did have a of paroxysmal atrial fibrillation but converted back to sinus rhythm. Cardiology did not feel she warranted a cardiac cath at this time secondary to her acute renal failure. She was seen by neurology who felt that she may have had a TIA due to her run of A. fib. Patient continued to progress well. Her acute kidney injury and metabolic acidosis were improving. She did receive IV iron. She had increased WBC count after transition to oral antibiotics, which may be due to volume contraction. This continued to improve. She had one episode of hyperkalemia which resolved with low, was thought to be secondary to her high blood sugars. She continued to improve. Her weakness improved and she was determined stable for discharge home with home health care. Follow-up: Dr. Bledsoe in 1 week, Dr. Hsu in 1 week, Dr. Triana in 2 weeks, Neo villeda in 1-2 days, and the wound care center. Patient will have repeat basic metabolic profile and a CBC done in 5 days. She will continue to check her blood sugars. Her metformin and invokana were stopped and her Lantus was increased to twice daily, this is due to her having significant hypoglycemia when being given all 20 units at one time. She'll continue with her short acting insulin. Her Lyrica dose was increased during her hospital stay. Images: Tib/fib x- ray: Large ulceration or soft tissue wound all along the medial margin of the left lower extremity with no destructive osseous changes Left foot x-ray: Diffuse osteopenia and soft tissue edema, no destructive changes to suggest osteomyelitis Lower extremity venous Doppler: Unable to obtain TBI as patient would not allow left leg to be touched. Renal ultrasound, limited with no diagnostic evidence of [place], left kidney poorly visualized. MRI of left leg: No diagnostic evidence of osteomyelitis, large soft tissue wound with edema suggestive of cellulitis, edema in the adjacent medial calf musculature and myositis involvement of the vasculature is in the differential. VQ scan which showed low probability of pulmonary embolism echocardiogram which showed an ejection fraction of 40-45% with hypokinetic left ventricular wall, moderate tricuspid regurgitation, moderate pulmonary hyperten orion CT head: Age-related atrophic and chronic small vessel ischemic changes without acute intracranial process. CT head and neck: Moderate proximal left ICA stenosis on the right, mild to moderate bilateral pleural effusions, moderate to severe irregular atherosclerotic stenosis with moderate focal stenosis of the A3 segment of the left IAIN Repeat renal ultrasound: No evidence of hydronephrosis MRI brain: Mild to moderate diffuse cerebral atrophy with moderate chronic small vessel ischemic changes, increasing fluid in the bilateral mastoid air cells Patient seen and examined at bedside. Feelign good, wants to go home, was having some nerve pain in her lower extremities we discussed that her Lyrica was just increased that she give it time to be effective. Vital signs reviewed and stable. General: non toxic, no distress, appears at stated age Derm: warm, dry, dressing over left leg Head: atraumatic, normocephalic, symmetric Eyes: EOMI, no lid lag, anicteric sclera Mouth: no lip lesion, mucus membranes moist Cardiovascular: S1S2 reg, no murmur, positive posterior tibial pulse bilateral, Lungs: bs bilateral, no rhonchi, no rales , no accessory muscle use Abdominal: soft, nontender to palpation, no guarding, no appreciable organomegaly Ext: no gross muscle atrophy, 2+ edema bilateral lower extremities, no contractures, Neuro: CN II-XI grossly intact, no focal neuro deficits noted Psych: Alert, oriented, appropriate affect A total of 55 minutes of time were spent preparing this complex discharge summary . Patient Condition at Discharge: Stable Plan - Discharge Summary Discharge Rx Participant: No New Discharge Prescriptions: New Apixaban [Eliquis] 2.5 mg PO BID #60 tablet Atorvastatin [Lipitor] 80 mg PO HS #90 tab Ciprofloxacin HCl [Cipro] 500 mg PO Q24HR #6 tab metroNIDAZOLE [Flagyl] 500 mg PO TID #18 tab Furosemide [Lasix] 40 mg PO BID@0900,1600 #60 tab Metoprolol Tartrate [Lopressor] 12.5 mg PO BID #60 tab Pregabalin [Lyrica] 100 mg PO BID #60 cap Midodrine [ProAmatine] 5 mg PO AC-TID #90 tab Continue Pantoprazole Sodium 40 mg PO DAILY gemfibroziL [Lopid] 600 mg PO AC-BID Aspirin EC [Ecotrin Low Dose] 81 mg PO DAILY INSULIN ASPART (NovoLOG) [NovoLOG (formulary)] 5 - 12 unit SQ AC-TID Famotidine [Pepcid] 20 mg PO HS Ferrous Sulfate [Iron (65 MG Elemental)] 325 mg PO DAILY L.acidoph,Paracasei, B.lactis [Probiotic] 1 cap PO DAILY Cyanocobalamin (Vitamin B-12) [Vitamin B-12] 2,000 mcg PO DAILY Cholecalciferol [Vitamin D3 (25 Mcg = 1000 Iu)] 2,000 unit PO DAILY Fluticasone Nasal Peak [Flonase Nasal Peak] 1 spray EA NOSTRIL DAILY PRN PRN Reason: Allergy Symptoms Ascorbic Acid [Vitamin C] 1,000 mg PO DAILY Acetaminophen [Tylenol Extra Strength] 1,500 mg PO Q6H PRN PRN Reason: Pain Changed Insulin Glargine [Lantus Vial] 10 unit SQ BID #1 each Discontinued metFORMIN HCL [Glucophage] 500 mg PO AC-BRKFST Flaxseed Oil 1,000 mg PO BID Furosemide [Lasix] 40 mg PO DAILY Carvedilol [Coreg] 6.25 mg PO BID hydroCHLOROthiazide [Hydrodiuril] 25 mg PO DAILY Pregabalin [Lyrica] 75 mg PO BID Canagliflozin [Invokana] 100 mg PO DAILY ALPRAZolam [Xanax] 0.25 mg PO DAILY PRN PRN Reason: Anxiety Losartan Potassium [Cozaar] 25 mg PO DAILY Discharge Medication List Aspirin EC [Ecotrin Low Dose] 81 mg PO DAILY 05/08/18 [History] INSULIN ASPART (NovoLOG) [NovoLOG (formulary)] 5 - 12 unit SQ AC-TID 05/08/18 [History] Pantoprazole Sodium 40 mg PO DAILY 05/08/18 [History] gemfibroziL [Lopid] 600 mg PO AC-BID 05/08/18 [History] Cholecalciferol [Vitamin D3 (25 Mcg = 1000 Iu)] 2,000 unit PO DAILY 06/08/19 [History] Cyanocobalamin (Vitamin B-12) [Vitamin B-12] 2,000 mcg PO DAILY 06/08/19 [History] Famotidine [Pepcid] 20 mg PO HS 06/08/19 [History] Ferrous Sulfate [Iron (65 MG Elemental)] 325 mg PO DAILY 06/08/19 [History] L.acidoph,Paracasei, B.lactis [Probiotic] 1 cap PO DAILY 06/08/19 [History] Acetaminophen [Tylenol Extra Strength] 1,500 mg PO Q6H PRN 03/30/21 [History] Ascorbic Acid [Vitamin C] 1,000 mg PO DAILY 03/30/21 [History] Fluticasone Nasal Peak [Flonase Nasal Peak] 1 spray EA NOSTRIL DAILY PRN 06/17/21 [History] Apixaban [Eliquis] 2.5 mg PO BID #60 tablet 06/30/21 [Rx] Atorvastatin [Lipitor] 80 mg PO HS #90 tab 06/30/21 [Rx] Ciprofloxacin HCl [Cipro] 500 mg PO Q24HR #6 tab 06/30/21 [Rx] Furosemide [Lasix] 40 mg PO BID@0900,1600 #60 tab 06/30/21 [Rx] Insulin Glargine [Lantus Vial] 10 unit SQ BID #1 each 06/30/21 [Rx] Metoprolol Tartrate [Lopressor] 12.5 mg PO BID #60 tab 06/30/21 [Rx] Midodrine [ProAmatine] 5 mg PO AC-TID #90 tab 06/30/21 [Rx] Pregabalin [Lyrica] 100 mg PO BID #60 cap 06/30/21 [Rx] metroNIDAZOLE [Flagyl] 500 mg PO TID #18 tab 06/30/21 [Rx] Follow up Appointment(s)/Referral(s): Keren Bledsoe MD [STAFF PHYSICIAN] - 1 Week [facility], [NON-STAFF] - 1 Week Shayan Hsu MD [STAFF PHYSICIAN] - 1 Week Francoise Triana DO [STAFF PHYSICIAN] - 1 Week Neo Bustillo NPC [Family Provider] - 1-2 Days [facility] [NON-STAFF] - 07/01/21 9:45 am Ambulatory/Diagnostic Orders: Basic Metabolic Panel [LAB.AMB] Time Frame: 5 Days, Location: None Selected Complete Blood Count w/diff [LAB.AMB] Time Frame: 5 Days, Location: None Selected Patient Instructions/Handouts: Heart Healthy Diet (DC), Low-Sodium Diet (DC) Activity/Diet/Wound Care/Special Instructions: Activity: as tolerated Diet: carb consistent, heart health, 2 gram sodium Wound Care: Dakins wet to dry dressing change daily Special Instructions: check blood sugar 3 times daily and make a log for neo keep legs elevated Discharge Disposition: HOME WITH HOME HEALTH SERVICES
--- NOTE | 2021-06-30 15:27 | P.PN ---
Subjective Progress Note Date: 06/30/21 Principal diagnosis: anemia In f/u today pt is seen briefly, no fever or bleeding. She is feeling really well and is ready to go home. Objective - Vital Signs Vital signs: Vital Signs Temp 97.3 F L 06/30/21 11:53 Pulse 64 06/30/21 11:53 Resp 20 06/30/21 11:53 BP 143/65 06/30/21 11:53 Pulse Ox 97 06/30/21 11:53 Intake & Output 06/29/21 06/30/21 06/30/21 18:59 06:59 18:59 Intake Total 118 240 Balance 118 240 Intake: Oral 118 240 Other: Voiding Method Toilet Toilet # Voids 2 1 - Constitutional General appearance: Present: average body habitus, cooperative, no acute distress - EENT Eyes: Present: anicteric sclerae, EOMI ENT: Present: hearing grossly normal - Respiratory Details: respirations even and unlabored at rest - Peripheral edema foot Peripheral Edema: bilateral: 1+ - Neurologic Neurologic: Present: CNII-XII intact (grossly) - Psychiatric Psychiatric: Present: A&O x's 3, appropriate affect, intact judgment & insight - Labs CBC & Chem 7: 06/30/21 07:36 06/30/21 07:36 Labs: Abnormal Lab Results - Last 24 Hours (Table) 06/29/21 06/29/21 06/29/21 Range/Units 16:28 20:14 21:32 RBC (3.80-5.40) m/uL Hgb (11.4-16.0) gm/dL Hct (34.0-46.0) % MCHC (31.0-37.0) g/dL RDW (11.5-15.5) % Plt Count (150-450) k/uL Sodium 131 L (137-145) mmol/L Potassium 5.6 H (3.5-5.1) mmol/L Chloride 94 L (98-107) mmol/L BUN 43 H (7-17) mg/dL Creatinine 1.57 H (0.52-1.04) mg/dL Glucose 197 H (74-99) mg/dL POC Glucose (mg/dL) 292 H 279 H (75-99) mg/dL 06/30/21 06/30/2122 Range/Units 06:17 07:36 07:36 RBC 3.28 L (3.80-5.40) m/uL Hgb 9.9 L (11.4-16.0) gm/dL Hct 32.8 L (34.0-46.0) % MCHC 30.2 L (31.0-37.0) g/dL RDW 16.4 H (11.5-15.5) % Plt Count 613 H (150-450) k/uL Sodium 135 L (137-145) mmol/L Potassium (3.5-5.1) mmol/L Chloride (98-107) mmol/L BUN 42 H (7-17) mg/dL Creatinine 1.65 H (0.52-1.04) mg/dL Glucose 150 H (74-99) mg/dL POC Glucose (mg/dL) 206 H (75-99) mg/dL 06/30/21 Range/Units 11:54 RBC (3.80-5.40) m/uL Hgb (11.4-16.0) gm/dL Hct (34.0-46.0) % MCHC (31.0-37.0) g/dL RDW (11.5-15.5) % Plt Count (150-450) k/uL Sodium (137-145) mmol/L Potassium (3.5-5.1) mmol/L Chloride (98-107) mmol/L BUN (7-17) mg/dL Creatinine (0.52-1.04) mg/dL Glucose (74-99) mg/dL POC Glucose (mg/dL) 140 H (75-99) mg/dL Assessment and Plan (1) Normocytic normochromic anemia Narrative/Plan: Anemia started to present 03/31, has been persistent and progressive. She has had chronic infection, been on jail abx and has CKD, all of which can contribute to anemia. Saturation was low, parenteral iron given. Other labs ordered to complete anemia work up did not reveal any other deficiencies, no paraproteinemia. Epo high. Weekly ERIK started. Hemoglobin up to 9.9. Recommend the patient continue to follow with Nephrology for ERIK administration and parenteral iron when necessary. Will plan a f/u in 4-6 weeks with Hematology so pt is established. Can refer b ack if new, persistent or progressive labs changes. Status: Acute Priority: High Code(s): D64.9 - ANEMIA, UNSPECIFIED SNOMED Code(s): 54390888
--- NOTE | 2021-07-07 23:24 | P.PN ---
Subjective Progress Note Date: 06/30/21 Principal diagnosis: Left leg wound and cellulitis Patient is 80 year old female with a past medical history significant for chronic nonhealing wound, left lower extremity admitted to the hospital with worsening pain to the left leg wound concerning for cellulitis. On today's evaluation that is 06/30/2021 the patient remains to be afebrile, the patient denies chest pain, the patient is breathing comfortably on room ear, the patient denies cough or sputum production patient denies any abdominal pain no diarrhea, patient pain to the left lower extremity is currently controlled, patient currently with no new symptoms and is feeling better and ready to go home Objective - Vital Signs Vital signs: Vital Signs Temp 97.3 F L 06/30/21 11:53 Pulse 64 06/30/21 11:53 Resp 20 06/30/21 11:53 BP 143/65 06/30/21 11:53 Pulse Ox 97 06/30/21 11:53 Intake & Output 06/29/21 06/30/21 06/30/21 18:59 06:59 18:59 Intake Total 118 240 Balance 118 240 Intake: Oral 118 240 Other: Voiding Method Toilet Toilet # Voids 2 1 - Exam GENERAL DESCRIPTION: An elderly female lying in bed in no distress RESPIRATORY SYSTEM: Unlabored breathing , decreased breath sounds at bases HEART: S1 S2 regular rate and rhythm , ABDOMEN: Soft , no tenderness EXTREMITIES: Left leg wound is currently dressed no drainage on the dressing - Labs CBC & Chem 7: 06/30/21 07:36 06/30/21 07:36 Labs: Abnormal Lab Results - Last 24 Hours (Table) 06/29/21 06/29/21 06/29/21 Range/Units 16:28 20:14 21:32 RBC (3.80-5.40) m/uL Hgb (11.4-16.0) gm/dL Hct (34.0-46.0) % MCHC (31.0-37.0) g/dL RDW (11.5-15.5) % Plt Count (150-450) k/uL Sodium 131 L (137-145) mmol/L Potassium 5.6 H (3.5-5.1) mmol/L Chloride 94 L (98-107) mmol/L BUN 43 H (7-17) mg/dL Creatinine 1.57 H (0.52-1.04) mg/dL Glucose 197 H (74-99) mg/dL POC Glucose (mg/dL) 292 H 279 H (75-99) mg/dL 06/30/21 06/30/21 06/30/21 Range/Units 06:17 07:36 07:36 RBC 3.28 L (3.80-5.40) m/uL Hgb 9.9 L (11.4-16.0) gm/dL Hct 32.8 L (34.0-46.0) % MCHC 30.2 L (31.0-37.0) g/dL RDW 16.4 H (11.5-15.5) % Plt Count 613 H (150-450) k/uL Sodium 135 L (137-145) mmol/L Potassium (3.5-5.1) mmol/L Chloride (98-107) mmol/L BUN 42 H (7-17) mg/dL Creatinine 1.65 H (0.52-1.04) mg/dL Glucose 150 H (74-99) mg/dL POC Glucose (mg/dL) 206 H (75-99) mg/dL 06/30/21 Range/Units 11:54 RBC (3.80-5.40) m/uL Hgb (11.4-16.0) gm/dL Hct (34.0-46.0) % MCHC (31.0-37.0) g/dL RDW (11.5-15.5) % Plt Count (150-450) k/uL Sodium (137-145) mmol/L Potassium (3.5-5.1) mmol/L Chloride (98-107) mmol/L BUN (7-17) mg/dL Creatinine (0.52-1.04) mg/dL Glucose (74-99) mg/dL POC Glucose (mg/dL) 140 H (75-99) mg/dL Assessment and Plan (1) Leg wound, left Status: Acute Code(s): S81.802A - UNSPECIFIED OPEN WOUND, LEFT LOWER LEG, INITIAL ENCOUNTER SNOMED Code(s): 670125426 Plan: 1patient with chronic nonhealing wound to the left lower extremity in this patient presented to hospital with increasing pain swelling redness and concern for cellulitis apparently the patient did have a chronic wound and has been exposed to antibiotic will need to cover for both gram-positive as well as gram- negative pathogen. 2MRI did not show any evidence of Osteomyelitis, patient surgical debridement has been put on hold because of cardiac condition 3patient left leg culture grew Citrobacter, Klebsiella and anaerobes, the patient seems to be clinically improving with oral Cipro and Flagyl which will be continued for about a week on discharge , local care per vascular surgery to close outpatient follow-up Time with Patient: Less than 30
== END 2021-06-30 13:57 | disposition home health service (06) | DRG 871 ==
LOC: EC 10:00 → 1SOBS 13:16 → 3SCARD 14:26 → 2SICU 16:39 → 4SSUR 06-18 15:20 → 3SCARD 06-19 17:50
PROVIDERS: ADMIT Internal Medicine; ATTEND Internal Medicine
DX: A41.9 Sepsis, unspecified organism (principal); I21.4 Non-ST elevation (NSTEMI) myocardial infarction; I50.23 Acute on chronic systolic (congestive) heart failure; G93.41 Metabolic encephalopathy; L03.116 Cellulitis of left lower limb; E87.2 Acidosis; I13.0 Hypertensive heart and chronic kidney disease with heart failure and stage 1 through stage 4 chronic kidney disease, or unspecified chronic kidney disease; N17.9 Acute kidney failure, unspecified; R47.01 Aphasia; I25.110 Atherosclerotic heart disease of native coronary artery with unstable angina pectoris; L97.922 Non-pressure chronic ulcer of unspecified part of left lower leg with fat layer exposed; G45.9 Transient cerebral ischemic attack, unspecified; R65.20 Severe sepsis without septic shock; B96.1 Klebsiella pneumoniae [K. pneumoniae] as the cause of diseases classified elsewhere; B96.89 Other specified bacterial agents as the cause of diseases classified elsewhere; D64.9 Anemia, unspecified; N18.9 Chronic kidney disease, unspecified; E11.42 Type 2 diabetes mellitus with diabetic polyneuropathy; E11.22 Type 2 diabetes mellitus with diabetic chronic kidney disease; E11.51 Type 2 diabetes mellitus with diabetic peripheral angiopathy without gangrene; E11.622 Type 2 diabetes mellitus with other skin ulcer; E11.65 Type 2 diabetes mellitus with hyperglycemia; E61.1 Iron deficiency; E66.9 Obesity, unspecified; Z68.34 Body mass index [BMI] 34.0-34.9, adult; E11.621 Type 2 diabetes mellitus with foot ulcer; E78.5 Hyperlipidemia, unspecified; E86.0 Dehydration; E87.5 Hyperkalemia; G25.0 Essential tremor; G25.2 Other specified forms of tremor; I07.1 Rheumatic tricuspid insufficiency; I25.5 Ischemic cardiomyopathy; I48.0 Paroxysmal atrial fibrillation; I65.23 Occlusion and stenosis of bilateral carotid arteries; I66.22 Occlusion and stenosis of left posterior cerebral artery; I95.9 Hypotension, unspecified; I27.20 Pulmonary hypertension, unspecified; I67.2 Cerebral atherosclerosis; R29.706 NIHSS score 6; K21.9 Gastro-esophageal reflux disease without esophagitis; K59.00 Constipation, unspecified; M85.80 Other specified disorders of bone density and structure, unspecified site; T50.8X5A Adverse effect of diagnostic agents, initial encounter; Z53.09 Procedure and treatment not carried out because of other contraindication; Z79.2 Long term (current) use of antibiotics; Z79.4 Long term (current) use of insulin; Z79.82 Long term (current) use of aspirin; Z79.899 Other long term (current) drug therapy; Z80.0 Family history of malignant neoplasm of digestive organs; Z83.3 Family history of diabetes mellitus; Z87.891 Personal history of nicotine dependence; Z90.710 Acquired absence of both cervix and uterus; Z95.5 Presence of coronary angioplasty implant and graft
CPT/HCPCS: 36415; 70450; 70496; 70498; 70551; 71045; 76770; 78580; 80048; 80053; 80061; 80202; 81001; 82533; 82607; 82668; 82728; 82746; 82747; 83036; 83540; 83550; 83605; 83735; 83883; 83921; 84165; 84443; 84484; 85025; 85027; 85045; 85379; 85610; 85652; 85730; 86140; 86334; 87040; 87070; 87075; 87077; 87186; 87205; 93005; 93306; 93922; 94640; 94760; 96365; 96366; 96367; 96375; 99285

== ENCOUNTER 2021-07-11 12:22 | Emergency (ER) | payer MEDICARE ==
[2021-07-11 12:32] VITALS: BP 138/68; RESP 18
[2021-07-11] MEDS ORDERED: BACITRACIN OINT 1 EACH PACKET TOPICAL ONE (12:48)
--- NOTE | 2021-07-11 12:54 | ED ---
General Adult HPI - General Chief complaint: Skin/Abscess/Foreign Body Stated complaint: L leg problems Time Seen by Provider: 07/11/21 12:45 Source: patient, family, RN notes reviewed, old records reviewed Mode of arrival: wheelchair Limitations: no limitations - History of Present Illness Initial comments: This is a well-appearing 80-year-old female, alert and oriented 4, presents with complaints of pain and burning to the left lower leg upon awakening this morning. She states it looks like a burn but states that she woke up with it and denies injury. She is currently being treated for a nonhealing leg ulcer related to peripheral vascular disease at the wound care clinic and has appointments on Wednesdays. She is scheduled to see Dr. Triana this Tuesday for that wound. She denies any fevers, nausea vomiting or diarrhea. She states that she was hospitalized 10 days ago for minor heart attack. She does not take any blood thinners. -: hour(s) (5) Location: left, lower extremity (lateral calf) Radiation: non-radiation Quality: burning, constant Consistency: constant Improves with: none Worsens with: none Associated Symptoms: denies other symptoms Treatments Prior to Arrival: other (desitin) - Related Data Home Medications Medication Instructions Recorded Confirmed Aspirin EC [Ecotrin Low Dose] 81 mg PO DAILY 05/08/18 06/17/21 INSULIN ASPART (NovoLOG) [NovoLOG 5 - 12 unit SQ AC-TID 05/08/18 06/17/21 (formulary)] Pantoprazole Sodium 40 mg PO DAILY 05/08/18 06/17/21 gemfibroziL [Lopid] 600 mg PO AC-BID 05/08/18 06/17/21 Cholecalciferol [Vitamin D3 (25 2,000 unit PO DAILY 06/08/19 06/17/21 Mcg = 1000 Iu)] Cyanocobalamin (Vitamin B-12) 2,000 mcg PO DAILY 06/08/19 06/17/21 [Vitamin B-12] Famotidine [Pepcid] 20 mg PO HS 06/08/19 06/17/21 Ferrous Sulfate [Iron (65 MG 325 mg PO DAILY 06/08/19 06/17/21 Elemental)] L.acidoph,Paracasei, B.lactis 1 cap PO DAILY 06/08/19 06/17/21 [Probiotic] Acetaminophen [Tylenol Extra 1,500 mg PO Q6H PRN 03/30/21 06/17/21 Strength] Ascorbic Acid [Vitamin C] 1,000 mg PO DAILY 03/30/21 06/17/21 Fluticasone Nasal [place] [Flonase 1 spray EA NOSTRIL DAILY PRN 06/17/21 06/17/21 Nasal [place]] Previous Rx's Medication Instructions Recorded Apixaban [Eliquis] 2.5 mg PO BID #60 tablet 06/30/21 Atorvastatin [Lipitor] 80 mg PO HS #90 tab 06/30/21 Ciprofloxacin HCl [Cipro] 500 mg PO Q24HR #6 tab 06/30/21 Furosemide [Lasix] 40 mg PO BID@0900,1600 #60 tab 06/30/21 Insulin Glargine [Lantus Vial] 10 unit SQ BID #1 each 06/30/21 Metoprolol Tartrate [Lopressor] 12.5 mg PO BID #60 tab 06/30/21 Midodrine [ProAmatine] 5 mg PO AC-TID #90 tab 06/30/21 Pregabalin [Lyrica] 100 mg PO BID #60 cap 06/30/21 metroNIDAZOLE [Flagyl] 500 mg PO TID #18 tab 06/30/21 Bacitracin/Polymyx Oint 1 applic TOPICAL BID #1 07/11/21 [Polysporin Oint] Allergies Allergy/AdvReac Type Severity Reaction Status Date / Time bacitracin Allergy Unknown Verified 07/11/21 12:32 [From Neosporin ([id number])] bacitracin zinc Allergy Unknown Verified 07/11/21 12:32 [From Neosporin ([id number])] latex Allergy Rash/Hives Verified 07/11/21 12:32 neomycin sulfate Allergy Unknown Verified 07/11/21 12:32 [From Neosporin ([id number])] polymyxin B Allergy Unknown Verified 07/11/21 12:32 [From Neosporin ([id number])] Penicillins AdvReac Rash & Verified 07/11/21 12:32 Fatigue Sulfa (Sulfonamide AdvReac Rash & Verified 07/11/21 12:32 Antibiotics) Fatigue Review of Systems ROS Statement: Those systems with pertinent positive or pertinent negative responses have been documented in the HPI. ROS Other: All systems not noted in ROS Statement are negative. Past Medical History Past Medical History: Diabetes Mellitus, GERD/Reflux, Hypertension, Osteoarthritis (OA), Skin Disorder, Syncope, Vascular Disorder Additional Past Medical History / Comment(s): Arthritis in lower back. Poor circulation in legs, wound left lower leg calf area w/ pain, neuropathy in feet, goes to Wound Center. Edema bilateral lower extremities, wears TEDS on right leg. Shortness of breath.shortness of breathshortness of breath History of Any Multi-Drug Resistant Organisms: None Reported Past Surgical History: Appendectomy, Breast Surgery, Ear Surgery, Heart Catheterization, Heart Catheterization With Stent, Hysterectomy Additional Past Surgical History / Comment(s): Varicose vein stripping left leg, left ear myringotomy/tubes, colonoscopy, left breast biopsy, bilateral cataracts, left leg wound debridement. Past Anesthesia/Blood Transfusion Reactions: No Reported Reaction Date of Last Stent Placement:: 11/26 Past Psychological History: No Psychological Hx Reported Smoking Status: Former smoker Past Alcohol Use History: Rare Past Drug Use History: None Reported - Past Family History Father Family Medical History: Cancer Additional Family Medical History / Comment(s): COLON CANCER. Mother Family Medical History: Diabetes Mellitus, Renal Disease Additional Family Medical History / Comment(s): RENAL FAILURE. Brother(s) Family Medical History: Cancer Additional Family Medical History / Comment(s): 3 brothers - 2 had stomach cancer, 1 had esophageal cancer. General Exam Limitations: no limitations General appearance: alert, in no apparent distress Head exam: Present: atraumatic Eye exam: Present: normal appearance. Absent: scleral icterus, conjunctival injection Respiratory exam: Absent: respiratory distress, accessory muscle use Cardiovascular Exam: Present: regular rate, irregular rhythm. Absent: JVD Left Knee exam: Present: full knee extension. Absent: tenderness, swelling Lower Leg exam: Present: tenderness, swelling, abrasion, erythema. Absent: laceration Ankle exam: Present: swelling Foot/Toe exam: Present: swelling Neurovascular tendon exam: Absent: abnormal cap refill, extremity cold to touch Neurological exam: Present: alert, oriented X3 Psychiatric exam: Present: normal affect, normal mood Skin exam: Present: warm, dry, abrasion (Left lateral lower leg; patient states she has a chronic left medial leg ulcer that she sees Dr. Triana for, does not want to undress for evaluation). Absent: cyanosis, diaphoretic, vesicles, petechiae, pallor Course Vital Signs 07/11/21 07/11/21 12:28 13:12 Temperature 97.7 F 98.1 F Pulse Rate 66 60 Respiratory 18 18 Rate Blood Pressure 138/68 O2 Sat by Pulse 98 99 Oximetry Medical Decision Making - Medical Decision Making 80-year-old female presents with abrasion to left lateral lower leg she noticed this morning. She is currently being treated for a nonhealing left leg ulcer related to PVD at the wound care clinic and has an appointment with Dr. Triana this Tuesday. Patient did not want me to evaluate the existing, states she has an appointment coming up and she is only here for the abrasion that she noticed today. Patient has an unknown bacitracin. She was discharged and directed to use bacitracin ointment on the wound until seen by Dr. Triana on Tuesday. Return to the emergency with worsening symptoms including fevers, pain or increasing redness. Patient agreeable to this plan of care. Case discussed with Dr. Castro Disposition Clinical Impression: Abrasion Disposition: HOME SELF-CARE Condition: Good Instructions (If sedation given, give patient instructions): Abrasion (ED) Additional Instructions: Use bacitracin dressing twice a day and follow-up with your wound care doctor on Tuesday. Return to the emergency room with any new or concerning symptoms including fevers, increased redness or pain. Prescriptions: Bacitracin/Polymyx Oint [Polysporin Oint] 1 applic TOPICAL BID #1 Is patient prescribed a controlled substance at d/c from ED?: No Referrals: Mark Bhandari MD [Primary Care Provider] - 1-2 days Time of Disposition: 13:20
[2021-07-11 13:16] VITALS: PULSE 60; TEMP 98.1
== END 2021-07-11 13:20 | disposition home or self-care (01) ==
LOC: EC 12:22
DX: S80.812A Abrasion, left lower leg, initial encounter (principal); E11.40 Type 2 diabetes mellitus with diabetic neuropathy, unspecified; I10 Essential (primary) hypertension; K21.9 Gastro-esophageal reflux disease without esophagitis; M19.90 Unspecified osteoarthritis, unspecified site; Z87.891 Personal history of nicotine dependence; Z79.01 Long term (current) use of anticoagulants; Z79.4 Long term (current) use of insulin; Z79.899 Other long term (current) drug therapy; Z79.82 Long term (current) use of aspirin; X58.XXXA Exposure to other specified factors, initial encounter
CPT/HCPCS: 87070; 87205; 99283

== ENCOUNTER 2021-07-17 10:12 | Observation (INO) | payer MEDICARE ==
--- NOTE | 2021-07-17 10:49 | ED ---
Recheck HPI - General Chief Complaint: Recheck/Abnormal Lab/Rx Stated Complaint: Sent from CT Time Seen by Provider: 07/17/21 10:32 Source: patient, family, RN notes reviewed Mode of arrival: wheelchair Limitations: no limitations - History of Present Illness Initial Comments: This is an 80-year-old female who was sent to the emergency department from an outpatient computed tomography scan for elevated creatinine and BUN. She saw Dr. Triana in her office 2 days ago and she ordered a CT angiogram of the abd aorta with runoff. Due to the elevated creatinine and BUN, she was unable to have the CT scan done, as contrast was needed. Patient denies any chest pain, shortness of breath, dysuria, or hematuria. 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 She did have acute systolic CHF with an EF of 40-45% during that hospitalization as well. Bilateral pitting edema is noted on physical exam. Patient states that she has not gained any weight and the swelling has not increased from baseline. MD Complaint: abnormal lab - Related Data Home Medications Medication Instructions Recorded Confirmed Aspirin EC [Ecotrin Low Dose] 81 mg PO DAILY 05/08/18 07/17/21 INSULIN ASPART (NovoLOG) [NovoLOG 5 - 12 unit SQ AC-TID 05/08/18 07/17/21 (formulary)] Pantoprazole Sodium 40 mg PO DAILY 05/08/18 07/17/21 Cholecalciferol [Vitamin D3 (25 2,000 unit PO DAILY 06/08/19 07/17/21 Mcg = 1000 Iu)] Cyanocobalamin (Vitamin B-12) 2,000 mcg PO DAILY 06/08/19 07/17/21 [Vitamin B-12] Famotidine [Pepcid] 20 mg PO HS 06/08/19 07/17/21 Ferrous Sulfate [Iron (65 MG 325 mg PO DAILY 06/08/19 07/17/21 Elemental)] Acetaminophen [Tylenol Extra 1,500 mg PO Q6H PRN 03/30/21 07/17/21 Strength] Ascorbic Acid [Vitamin C] 1,000 mg PO DAILY 03/30/21 07/17/21 Fluticasone Nasal [place] [Flonase 1 spray EA NOSTRIL DAILY PRN 06/17/21 07/17/21 Nasal [place]] ALPRAZolam [Xanax] 0.25 mg PO DAILY PRN 07/17/21 07/17/21 Collagenase [Santyl Ointment] 1 applic TOPICAL DAILY 07/17/21 07/17/21 Insulin Glargine [Lantus Vial] 6 unit SQ HS 07/17/21 07/17/21 Metoprolol Tartrate [Lopressor] 12.5 mg PO BID 07/17/21 07/17/21 Previous Rx's Medication Instructions Recorded Apixaban [Eliquis] 2.5 mg PO BID #60 tablet 06/30/21 Atorvastatin [Lipitor] 80 mg PO HS #90 tab 06/30/21 Furosemide [Lasix] 40 mg PO BID@0900,1600 #60 tab 06/30/21 Midodrine [ProAmatine] 5 mg PO AC-TID #90 tab 06/30/21 Pregabalin [Lyrica] 100 mg PO BID #60 cap 06/30/21 Allergies Allergy/AdvReac Type Severity Reaction Status Date / Time bacitracin Allergy Unknown Verified 07/17/21 12:29 [From Neosporin ([id number])] bacitracin zinc Allergy Unknown Verified 07/17/21 12:29 [From Neosporin ([id number])] latex Allergy Rash/Hives Verified 07/17/21 12:29 neomycin sulfate Allergy Unknown Verified 07/17/21 12:29 [From Neosporin ([id number])] polymyxin B Allergy Unknown Verified 07/17/21 12:29 [From Neosporin ([id number])] Penicillins AdvReac Rash & Verified 07/17/21 12:29 Fatigue Sulfa (Sulfonamide AdvReac Rash & Verified 07/17/21 12:29 Antibiotics) Fatigue Review of Systems ROS Statement: Those systems with pertinent positive or pertinent negative responses have been documented in the HPI. ROS Other: All systems not noted in ROS Statement are negative. Constitutional: Denies: fever, chills ENT: Denies: ear pain, throat pain Respiratory: Denies: cough, dyspnea Cardiovascular: Denies: chest pain, palpitations Gastrointestinal: Denies: abdominal pain, nausea, vomiting, diarrhea Genitourinary: Denies: urgency, dysuria, frequency, hematuria Musculoskeletal: Denies: back pain Skin: Denies: rash Neurological: Denies: headache Past Medical History Past Medical History: Diabetes Mellitus, GERD/Reflux, Hypertension, Osteoarthritis (OA), Skin Disorder, Syncope, Vascular Disorder Additional Past Medical History / Comment(s): Arthritis in lower back. Poor circulation in legs, wound left lower leg calf area w/ pain, neuropathy in feet, goes to Wound Center. Edema bilateral lower extremities, wears TEDS on right leg. Shortness of breath.shortness of breathshortness of breath History of Any Multi-Drug Resistant Organisms: None Reported Past Surgical History: Appendectomy, Breast Surgery, Ear Surgery, Heart Catheterization, Heart Catheterization With Stent, Hysterectomy Additional Past Surgical History / Comment(s): Varicose vein stripping left leg, left ear myringotomy/tubes, colonoscopy, left breast biopsy, bilateral cataracts, left leg wound debridement. Past Anesthesia/Blood Transfusion Reactions: No Reported Reaction Date of Last Stent Placement:: 11/26 Past Psychological History: No Psychological Hx Reported Smoking Status: Former smoker Past Alcohol Use History: Rare Past Drug Use History: None Reported - Past Family History Father Family Medical History: Cancer Additional Family Medical History / Comment(s): COLON CANCER. Mother Family Medical History: Diabetes Mellitus, Renal Disease Additional Family Medical History / Comment(s): RENAL FAILURE. Brother(s) Family Medical History: Cancer Additional Family Medical History / Comment(s): 3 brothers - 2 had stomach cancer, 1 had esophageal cancer. General Exam Limitations: no limitations General appearance: alert, in no apparent distress Head exam: Present: atraumatic, normocephalic, normal inspection ENT exam: Present: normal exam, mucous membranes moist Neck exam: Present: normal inspection. Absent: tenderness, meningismus, lymphadenopathy Respiratory exam: Present: normal lung sounds bilaterally. Absent: respiratory distress, wheezes, rales, rhonchi, stridor Cardiovascular Exam: Present: regular rate, normal rhythm, normal heart sounds. Absent: systolic murmur, diastolic murmur, rubs, gallop, clicks Extremities exam: Present: other (2+ pitting edema bilaterally) Back exam: Absent: CVA tenderness (R), CVA tenderness (L) Neurological exam: Present: alert, oriented X3, CN II-XII intact Psychiatric exam: Present: normal affect, normal mood Skin exam: Present: warm, dry, intact, normal color. Absent: rash Course Vital Signs 07/17/21 07/17/21 10:13 11:37 Temperature 97.2 F L Pulse Rate 65 64 Respiratory 18 20 Rate Blood Pressure 147/80 123/59 O2 Sat by Pulse 99 100 Oximetry Medical Decision Making - Medical Decision Making This is an 80-year-old female who presents to the emergency department from an outpatient computed tomography scan for acute kidney injury. BUN/creatinine elevated from baseline. BUN/Creatinine on 06/30/2021 42/1.65 and today 69/2.3. BNP is elevated at 2310. Patient does have documented systolic CHF with an e jection fraction of 40-45%. Last BNP evaluated in our system was measured on 05/08/2018 at 203. I spoke with Jia Garces, vascular surgery [employer] who states that Dr. Triana would like the patient admitted to medicine with vascular as consult. They have already placed Dr. Bledsoe, nephrology, as a consult as well. This case was discussed in detail with the attending ED physician. Presentation, findings, and treatment plan discussed in detail as well. - Lab Data Result diagrams: 07/17/21 11:02 07/17/21 11:54 Lab Results 07/17/21 07/17/21 07/17/21 Range/Units 08:41 11:02 11:02 WBC 9.0 (3.8-10.6) k/uL RBC 3.64 L (3.80-5.40) m/uL Hgb 10.6 L (11.4-16.0) gm/dL Hct 33.9 L (34.0-46.0) % MCV 93.1 D (80.0-100.0) fL MCH 29.0 (25.0-35.0) pg MCHC 31.2 (31.0-37.0) g/dL RDW 14.1 (11.5-15.5) % Plt Count 455 H (150-450) k/uL MPV 9.1 Neutrophils % 73 % Lymphocytes % 14 % Monocytes % 7 % Eosinophils % 4 % Basophils % 1 % Neutrophils # 6.6 (1.3-7.7) k/uL Lymphocytes # 1.2 (1.0-4.8) k/uL Monocytes # 0.6 (0-1.0) k/uL Eosinophils # 0.3 (0-0.7) k/uL Basophils # 0.1 (0-0.2) k/uL Sodium (137-145) mmol/L Potassium (3.5-5.1) mmol/L Chloride (98-107) mmol/L Carbon Dioxide (22-30) mmol/L Anion Gap mmol/L BUN 69 H (7-17) mg/dL Creatinine 2.30 H (0.52-1.04) mg/dL Est GFR (CKD-EPI)AfAm 22 (>60 ml/min/1.73 sqM) Est GFR (CKD-EPI)NonAf 19 (>60 ml/min/1.73 sqM) Glucose (74-99) mg/dL POC Glucose (mg/dL) (75-99) mg/dL POC Glu Contract Administrative Assistant ID Plasma Lactic Acid [place] (0.7-2.0) mmol/L Calcium (8.4-10.2) mg/dL Phosphorus (2.5-4.5) mg/dL Magnesium (1.6-2.3) mg/dL Total Bilirubin (0.2-1.3) mg/dL AST (14-36) U/L ALT (4-34) U/L Alkaline Phosphatase (38-126) U/L Troponin I (0.000-0.034) ng/mL NT-Pro-B Natriuret Pep 2310 pg/mL Total Protein (6.3-8.2) g/dL Albumin (3.5-5.0) g/dL Urine Color Urine Appearance (Clear) Urine pH (5.0-8.0) Ur Specific [place] (1.001-1.035) Urine Protein (Negative) Urine Glucose (UA) (Negative) Urine Ketones (Negative) Urine Blood (Negative) Urine Nitrite (Negative) Urine Bilirubin (Negative) Urine Urobilinogen (<2.0) mg/dL Ur Leukocyte Esterase (Negative) Urine RBC (0-5) /hpf Urine WBC (0-5) /hpf Ur Squamous Epith Cells (0-4) /hpf Urine Bacteria (None) /hpf Hyaline Casts (0-2) /lpf Urine Mucus (None) /hpf 07/17/21 07/17/21 07/17/21 Range/Units 11:24 11:36 11:54 WBC (3.8-10.6) k/uL RBC (3.80-5.40) m/uL Hgb (11.4-16.0) gm/dL Hct (34.0-46.0) % MCV (80.0-100.0) fL MCH (25.0-35.0) pg MCHC (31.0-37.0) g/dL RDW (11.5-15.5) % Plt Count (150-450) k/uL MPV Neutrophils % % Lymphocytes % % Monocytes % % Eosinophils % % Basophils % % Neutrophils # (1.3-7.7) k/uL Lymphocytes # (1.0-4.8) k/uL Monocytes # (0-1.0) k/uL Eosinophils # (0-0.7) k/uL Basophils # (0-0.2) k/uL Sodium 130 L (137-145) mmol/L Potassium 4.1 (3.5-5.1) mmol/L Chloride 90 L (98-107) mmol/L Carbon Dioxide 27 (22-30) mmol/L Anion Gap 13 mmol/L BUN 67 H (7-17) mg/dL Creatinine 2.09 H (0.52-1.04) mg/dL Est GFR (CKD-EPI)AfAm 25 (>60 ml/min/1.73 sqM) Est GFR (CKD-EPI)NonAf 22 (>60 ml/min/1.73 sqM) Glucose 288 H (74-99) mg/dL POC Glucose (mg/dL) (75-99) mg/dL POC Glu Contract Administrative Assistant ID Plasma Lactic Acid [place] 1.6 (0.7-2.0) mmol/L Calcium 9.0 (8.4-10.2) mg/dL Phosphorus 4.4 (2.5-4.5) mg/dL Magnesium 1.9 (1.6-2.3) mg/dL Total Bilirubin 0.7 (0.2-1.3) mg/dL AST 19 (14-36) U/L ALT 10 (4-34) U/L Alkaline Phosphatase 122 (38-126) U/L Troponin I (0.000-0.034) ng/mL NT-Pro-B Natriuret Pep pg/mL Total Protein 7.2 (6.3-8.2) g/dL Albumin 3.9 (3.5-5.0) g/dL Urine Color Light Yellow Urine Appearance Clear (Clear) Urine pH 5.5 (5.0-8.0) Ur Specific [place] 1.008 (1.001-1.035) Urine Protein Negative (Negative) Urine Glucose (UA) Negative (Negative) Urine Ketones Negative (Negative) Urine Blood Negative (Negative) Urine Nitrite Negative (Negative) Urine Bilirubin Negative (Negative) Urine Urobilinogen <2.0 (<2.0) mg/dL Ur Leukocyte Esterase Small H (Negative) Urine RBC 1 (0-5) /hpf Urine WBC 3 (0-5) /hpf Ur Squamous Epith Cells 2 (0-4) /hpf Urine Bacteria Many H (None) /hpf Hyaline Casts 1 (0-2) /lpf Urine Mucus Rare H (None) /hpf 07/17/21 07/17/21 Range/Units 11:54 14:04 WBC (3.8-10.6) k/uL RBC (3.80-5.40) m/uL Hgb (11.4-16.0) gm/dL Hct (34.0-46.0) % MCV (80.0-100.0) fL MCH (25.0-35.0) pg MCHC (31.0-37.0) g/dL RDW (11.5-15.5) % Plt Count (150-450) k/uL MPV Neutrophils % % Lymphocytes % % Monocytes % % Eosinophils % % Basophils % % Neutrophils # (1.3-7.7) k/uL Lymphocytes # (1.0-4.8) k/uL Monocytes # (0-1.0) k/uL Eosinophils # (0-0.7) k/uL Basophils # (0-0.2) k/uL Sodium (137-145) mmol/L Potassium (3.5-5.1) mmol/L Chloride (98-107) mmol/L Carbon Dioxide (22-30) mmol/L Anion Gap mmol/L BUN (7-17) mg/dL Creatinine (0.52-1.04) mg/dL Est GFR (CKD-EPI)AfAm (>60 ml/min/1.73 sqM) Est GFR (CKD-EPI)NonAf (>60 ml/min/1.73 sqM) Glucose (74-99) mg/dL POC Glucose (mg/dL) 424 H (75-99) mg/dL POC Glu Contract Administrative Assistant Ty Salazar Plasma Lactic Acid [place] (0.7-2.0) mmol/L Calcium (8.4-10.2) mg/dL Phosphorus (2.5-4.5) mg/dL Magnesium (1.6-2.3) mg/dL Total Bilirubin (0.2-1.3) mg/dL AST (14-36) U/L ALT (4-34) U/L Alkaline Phosphatase (38-126) U/L Troponin I <0.012 (0.000-0.034) ng/mL NT-Pro-B Natriuret Pep pg/mL Total Protein (6.3-8.2) g/dL Albumin (3.5-5.0) g/dL Urine Color Urine Appearance (Clear) Urine pH (5.0-8.0) Ur Specific [place] (1.001-1.035) Urine Protein (Negative) Urine Glucose (UA) (Negative) Urine Ketones (Negative) Urine Blood (Negative) Urine Nitrite (Negative) Urine Bilirubin (Negative) Urine Urobilinogen (<2.0) mg/dL Ur Leukocyte Esterase (Negative) Urine RBC (0-5) /hpf Urine WBC (0-5) /hpf Ur Squamous Epith Cells (0-4) /hpf Urine Bacteria (None) /hpf Hyaline Casts (0-2) /lpf Urine Mucus (None) /hpf - EKG Data EKG Comments: Sinus bradycardia with occasional supraventricular premature complexes. Nonspecific T-wave abnormality. Prolonged QT interval. Ventricular rate 57 tc ts per minute, [place] interval 158 ms, QRS duration 84 ms, QTC 487 ms. - Radiology Data Radiology results: report reviewed, image reviewed Disposition Clinical Impression: Acute kidney injury Disposition: ADMITTED IP TO THIS HOSP
[2021-07-17 11:14] LABS: Basophils # (A) 0.1 k/uL (0-0.2); Basophils % (A) 1 %; Eosinophils # (A) 0.3 k/uL (0-0.7); Eosinophils % (A) 4 %; HCT 33.9 % (34.0-46.0); HGB 10.6 gm/dL (11.4-16.0); Lymphocytes # (A) 1.2 k/uL (1.0-4.8); Lymphocytes % (A) 14 %; MCHC 31.2 g/dL (31.0-37.0); Mean Platelet Volume 9.1; Monocytes # (A) 0.6 k/uL (0-1.0); Monocytes % (A) 7 %; Neutrophils # (A) 6.6 k/uL (1.3-7.7); Neutrophils % (A) 73 %; Platelet Count 455 k/uL (150-450); RBC 3.64 m/uL (3.80-5.40); RDW 14.1 % (11.5-15.5)
[2021-07-17 11:17] LABS: MCV 93.1 fL (80.0-100.0)
[2021-07-17 11:58] LABS: Appearance,Urine Clear (Clear); Bacteria,Urine Many /hpf; Bilirubin,Urine Negative (Negative); Blood,Urine Negative (Negative); Color,Urine Light Yellow; Glucose,Urine (UA) Negative (Negative); Hyaline Casts,Urine 1 /lpf (0-2); Ketones,Urine Negative (Negative); Leukocyte Esterase,Urine Small (Negative); Mucus,Urine Rare /hpf; Nitrite,Urine Negative (Negative); PH, Urine 5.5 (5.0-8.0); Protein,Urine Negative (Negative); RBC,Urine 1 /hpf (0-5); Specific Gravity,Urine 1.008 (1.001-1.035); Squamous Epithelial Cell,Urine 2 /hpf (0-4); Urobilinogen,Urine <2.0 mg/dL (<2.0); WBC,Urine 3 /hpf (0-5)
[2021-07-17 12:28] LABS: Albumin 3.9 g/dL (3.5-5.0); Magnesium 1.9 mg/dL (1.6-2.3); Phosphorus 4.4 mg/dL (2.5-4.5); Potassium 4.1 mmol/L (3.5-5.1); Total Bilirubin 0.7 mg/dL (0.2-1.3); Total Protein 7.2 g/dL (6.3-8.2)
[2021-07-17] MEDS ORDERED: SODIUM CHLORIDE 0.9% 1,000 ML IV ONE (12:52)
[2021-07-17] MEDS ORDERED: SODIUM CHLORIDE 0.9% 1,000 ML IV SCH (13:00)
[2021-07-17] MEDS ORDERED: NALOXONE 0.4 MG/ML 1 ML VIAL IV PRN (13:12)
[2021-07-17] MEDS ORDERED: ONDANSETRON 4 MG/2 ML VIAL IVP PRN (13:12)
[2021-07-17] MEDS ORDERED: LORazepam 2 MG/ML INJ IV PRN (13:12)
--- NOTE | 2021-07-17 13:12 | P.GSCN ---
History of Present Illness Consult date: 07/17/21 Reason for Consult: Peripheral arterial disease, nonhealing ulcer Requesting physician: Amairani Castano History of present illness: This is an 80-year-old female known to this regular surgical services, Dr. Triana. She was actually just seen in her office on Tuesday on for nonhealing ulcers and peripheral arterial disease. Today she was scheduled for a CT angiogram of the abdomen and pelvis with runoff, however her BUN/creatinine and creatinine were elevated. BUN 69 and creatinine was 2.3. He was sent to the emergency department for consultation to nephrology for acute kidney injury. Patient was recently admitted and hospitalized towards the end of June with acute kidney injury secondary to hypotension, cardiorenal and was seen at that time by nephrology. She is also following with wound care center in sees Dr. Hussein weekly. She states her ulcer is healing nicely. However she states now she is getting pressure ulcers on bilateral heels, in the inner painful. He denies any shortness of breath, chest pain, abdominal pain, fevers or chills. Review of Systems A 14 point review of systems was completed all pertinent positives and negatives as stated in the HPI Past Medical History Past Medical History: Diabetes Mellitus, GERD/Reflux, Hypertension, Osteoarthritis (OA), Skin Disorder, Syncope, Vascular Disorder Additional Past Medical History / Comment(s): Arthritis in lower back. Poor circulation in legs, wound left lower leg calf area w/ pain, neuropathy in feet, goes to Wound Center. Edema bilateral lower extremities, wears TEDS on right leg. Shortness of breath.shortness of breathshortness of breath History of Any Multi-Drug Resistant Organisms: None Reported Past Surgical History: Appendectomy, Breast Surgery, Ear Surgery, Heart Daniela terization, Heart Catheterization With Stent, Hysterectomy Additional Past Surgical History / Comment(s): Varicose vein stripping left leg, left ear myringotomy/tubes, colonoscopy, left breast biopsy, bilateral cataracts, left leg wound debridement. Past Anesthesia/Blood Transfusion Reactions: No Reported Reaction Date of Last Stent Placement:: 11/26 Past Psychological History: No Psychological Hx Reported Smoking Status: Former smoker Past Alcohol Use History: Rare Past Drug Use History: None Reported - Past Family History Father Family Medical History: Cancer Additional Family Medical History / Comment(s): COLON CANCER. Mother Family Medical History: Diabetes Mellitus, Renal Disease Additional Family Medical History / Comment(s): RENAL FAILURE. Brother(s) Family Medical History: Cancer Additional Family Medical History / Comment(s): 3 brothers - 2 had stomach cancer, 1 had esophageal cancer. Medications and Allergies Home Medications Medication Instructions Recorded Confirmed Type Aspirin EC [Ecotrin Low Dose] 81 mg PO DAILY 05/08/18 06/17/21 History INSULIN ASPART (NovoLOG) [NovoLOG 5 - 12 unit SQ AC-TID 05/08/18 06/17/21 History (formulary)] Pantoprazole Sodium 40 mg PO DAILY 05/08/18 06/17/21 History Cholecalciferol [Vitamin D3 (25 2,000 unit PO DAILY 06/08/19 06/17/21 History Mcg = 1000 Iu)] Cyanocobalamin (Vitamin B-12) 2,000 mcg PO DAILY 06/08/19 06/17/21 History [Vitamin B-12] Famotidine [Pepcid] 20 mg PO HS 06/08/19 06/17/21 History Ferrous Sulfate [Iron (65 MG 325 mg PO DAILY 06/08/19 06/17/21 History Elemental)] Acetaminophen [Tylenol Extra 1,500 mg PO Q6H PRN 03/30/21 06/17/21 History Strength] Ascorbic Acid [Vitamin C] 1,000 mg PO DAILY 03/30/21 06/17/21 History Fluticasone Nasal [place] [Flonase 1 spray EA NOSTRIL DAILY PRN 06/17/21 06/17/21 History Nasal [place]] Apixaban [Eliquis] 2.5 mg PO BID #60 tablet 06/30/21 Rx Atorvastatin [Lipitor] 80 mg PO HS #90 tab 06/30/21 Rx Furosemide [Lasix] 40 mg PO BID@0900,1600 #60 tab 06/30/21 Rx Midodrine [ProAmatine] 5 mg PO AC-TID #90 tab 06/30/21 Rx Pregabalin [Lyrica] 100 mg PO BID #60 cap 06/30/21 Rx ALPRAZolam [Xanax] 0.25 mg PO DAILY PRN 07/17/21 07/17/21 History Collagenase [Santyl Ointment] 1 applic TOPICAL DAILY 07/17/21 07/17/21 History Insulin Glargine [Lantus Vial] 6 unit SQ HS 07/17/21 07/17/21 History Metoprolol Tartrate [Lopressor] 12.5 mg PO BID 07/17/21 07/17/21 History Allergies Allergy/AdvReac Type Severity Reaction Status Date / Time bacitracin Allergy Unknown Verified 07/17/21 12:29 [From Neosporin ([id number])] bacitracin zinc Allergy Unknown Verified 07/17/21 12:29 [From Neosporin ([id number])] latex Allergy Rash/Hives Verified 07/17/21 12:29 neomycin sulfate Allergy Unknown Verified 07/17/21 12:29 [From Neosporin ([id number])] polymyxin B Allergy Unknown Verified 07/17/21 12:29 [From Neosporin ([id number])] Penicillins AdvReac Rash & Verified 07/17/21 12:29 Fatigue Sulfa (Sulfonamide AdvReac Rash & Verified 07/17/21 12:29 Antibiotics) Fatigue Surgical - Exam Vital Signs Temp Pulse Resp BP Pulse Ox 97.2 F L 65 18 147/80 99 07/17/21 10:13 07/17/21 10:13 07/17/21 10:13 07/17/21 10:13 07/17/21 10:13 General appearance: The patient is alert, oriented, appears in no acute distress. HET: Head is normocephalic and atraumatic. Pupils are equal and reactive. Neck: Supple without lymphadenopathy. Trachea midline. No audible carotid bruit. Heart: S1 S2. Regular rate and rhythm. Lungs: Clear to auscultation bilaterally. Abdomen: Soft, nontender, nondistended. Extremities: Bilateral lower extremities warm to touch, with lower extremity edema. Right heel with pressure ulcer, left heel with pressure ulcer to the lateral aspect. She has dressing intact to the left lateral aspect of lower leg as well as medial aspect. Neurological: No focal deficits. Strength and sensation are grossly intact. Results - Labs 07/17/21 11:02 07/17/21 11:54 Abnormal Lab Results - Last 24 Hours (Table) 07/17/21 07/17/21 07/17/21 Range/Units 08:41 11:02 11:36 RBC 3.64 L (3.80-5.40) m/uL Hgb 10.6 L (11.4-16.0) gm/dL Hct 33.9 L (34.0-46.0) % Plt Count 455 H (150-450) k/uL BUN 69 H (7-17) mg/dL Creatinine 2.30 H (0.52-1.04) mg/dL Ur Leukocyte Esterase Small H (Negative) Urine Bacteria Many H (None) /hpf Urine Mucus Rare H (None) /hpf Diabetes panel 07/17/21 Range/Units 08:41 BUN 69 H (7-17) mg/dL Creatinine 2.30 H (0.52-1.04) mg/dL Pituitary panel 07/17/21 Range/Units 08:41 BUN 69 H (7-17) mg/dL Creatinine 2.30 H (0.52-1.04) mg/dL Adrenal panel 07/17/21 Range/Units 08:41 BUN 69 H (7-17) mg/dL Creatinine 2.30 H (0.52-1.04) mg/dL Assessment and Plan Assessment: 1. Nonhealing left lower extremity wound 2. Acute kidney injury 3. Pressure ulcers bilateral heels 4. History atrial fibrillation 5. History coronary artery disease 6. History of diabetes mellitus with diabetic neuropathy Plan: 1. Consult to nephrology 2. Repeat CBC, BMP tomorrow 3. Mediboots bilateral 4. Santyl to left lower extremity medial wound, adaptic to left lateral wound 5. Plan is to order a CT angiogram abdomen aorta with runoff if kidney function improves. Otherwise will likely need to undergo CO2 angiogram. Thank you for this consultation, we will continue to follow. The impression and plan of care has been dictated as directed. Dr. Triana I performed a history and examination of this patient, discussed the same with the dictator. I agree with the dictator's note ,documented as a scribe. Any additional findings or plans will be noted.
--- NOTE | 2021-07-17 13:27 | XR ---
EXAMINATION TYPE: XR chest 2V DATE OF EXAM: 07/17/2021 COMPARISON: 06/24/2021 TECHNIQUE: PA and lateral views submitted. HISTORY: Acute kidney injury, shortness of breath history of CHF FINDINGS: The lungs are clear and there is no pneumothorax, pleural effusion, or focal pneumonia. No overt fa ilure. Heart size normal. Hyperinflation suggests COPD. Chronic deformity of the right clavicle could be on the basis of remote trauma. Large hiatal hernia noted. Use osteopenia. IMPRESSION: 1. No acute process. 2. Large hiatal hernia. Correlate for COPD
[2021-07-17 14:08] LABS: Glucose,Whole Blood 424 mg/dL (75-99)
[2021-07-17] MEDS ORDERED: INSULIN ASPART (NovoLOG) 100 UNIT/ML VIAL SQ ONE (14:14)
[2021-07-17] MEDS ORDERED: FLUTICASONE 50MCG/SPRAY NASAL 16GM EA NOSTRIL PRN (14:15)
[2021-07-17] MEDS ORDERED: ACETAMINOPHEN TAB 500 MG TAB PO PRN (14:15)
[2021-07-17] MEDS ORDERED: ALPRAZolam 0.25 MG TAB PO PRN (14:15)
[2021-07-17] MEDS: ACETAMINOPHEN TAB 325 MG TAB PO PRN ×2 (14:24→23:10)
--- NOTE | 2021-07-17 15:14 | P.HPIM ---
History of Present Illness H&P Date: 07/17/21 Chief Complaint: Abnormal labs This is an 80-year-old female who was sent to the emergency department from an outpatient computed tomography scan for elevated creatinine and BUN. She saw Dr. Triana in her office 2 days ago and she ordered a CT angiogram of the abd aorta with runoff. Due to the elevated creatinine and BUN, she was unable to have the CT scan done, as contrast was needed. Patient denies any chest pain, shortness of breath, dysuria, hematuria, or recent illness. 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 She does have systolic CHF with an EF of 40-45%. She also has bilateral pitting edema. Patient states that she has not gained any weight and the swelling has not increased from baseline. Patient denies any chest pain or shortness of breath. Patient denies any chest pain or shortness of breath. She denies any nausea vomiting or abdominal pain. Review of Systems All 14 review of systems evaluated and all negative except for above. Past Medical History Past Medical History: Diabetes Mellitus, GERD/Reflux, Hypertension, Osteoarthritis (OA), Skin Disorder, Syncope, Vascular Disorder Additional Past Medical History / Comment(s): Arthritis in lower back. Poor ci rculation in legs, wound left lower leg calf area w/ pain, neuropathy in feet, goes to Wound Center. Edema bilateral lower extremities, wears TEDS on right leg. Shortness of breath.shortness of breathshortness of breath History of Any Multi-Drug Resistant Organisms: None Reported Past Surgical History: Appendectomy, Breast Surgery, Ear Surgery, Heart Catheterization, Heart Catheterization With Stent, Hysterectomy Additional Past Surgical History / Comment(s): Varicose vein stripping left leg, left ear myringotomy/tubes, colonoscopy, left breast biopsy, bilateral cataracts, left leg wound debridement. Past Anesthesia/Blood Transfusion Reactions: No Reported Reaction Date of Last Stent Placement:: 11/26 Past Psychological History: No Psychological Hx Reported Smoking Status: Former smoker Past Alcohol Use History: Rare Past Drug Use History: None Reported - Past Family History Father Family Medical History: Cancer Additional Family Medical History / Comment(s): COLON CANCER. Mother Family Medical History: Diabetes Mellitus, Renal Disease Additional Family Medical History / Comment(s): RENAL FAILURE. Brother(s) Family Medical History: Cancer Additional Family Medical History / Comment(s): 3 brothers - 2 had stomach cancer, 1 had esophageal cancer. Medications and Allergies Home Medications Medication Instructions Recorded Confirmed Type Aspirin EC [Ecotrin Low Dose] 81 mg PO DAILY 05/08/18 07/17/21 History INSULIN ASPART (NovoLOG) [NovoLOG 5 - 12 unit SQ AC-TID 05/08/18 07/17/21 History (formulary)] Pantoprazole Sodium 40 mg PO DAILY 05/08/18 07/17/21 History Cholecalciferol [Vitamin D3 (25 2,000 unit PO DAILY 06/08/19 07/17/21 History Mcg = 1000 Iu)] Cyanocobalamin (Vitamin B-12) 2,000 mcg PO DAILY 06/08/19 07/17/21 History [Vitamin B-12] Famotidine [Pepcid] 20 mg PO HS 06/08/19 07/17/21 History Ferrous Sulfate [Iron (65 MG 325 mg PO DAILY 06/08/19 07/17/21 History Elemental)] Acetaminophen [Tylenol Extra 1,500 mg PO Q6H PRN 03/30/21 07/17/21 History Strength] Ascorbic Acid [Vitamin C] 1,000 mg PO DAILY 03/30/21 07/17/21 History Fluticasone Nasal [place] [Flonase 1 spray EA NOSTRIL DAILY PRN 06/17/21 07/17/21 History Nasal [place]] Apixaban [Eliquis] 2.5 mg PO BID #60 tablet 06/30/21 07/17/21 Rx Atorvastatin [Lipitor] 80 mg PO HS #90 tab 06/30/21 07/17/21 Rx Furosemide [Lasix] 40 mg PO BID@0900,1600 #60 tab 06/30/21 07/17/21 Rx Midodrine [ProAmatine] 5 mg PO AC-TID #90 tab 06/30/21 07/17/21 Rx Pregabalin [Lyrica] 100 mg PO BID #60 cap 06/30/21 07/17/21 Rx ALPRAZolam [Xanax] 0.25 mg PO DAILY PRN 07/17/21 07/17/21 History Collagenase [Santyl Ointment] 1 applic TOPICAL DAILY 07/17/21 07/17/21 History Insulin Glargine [Lantus Vial] 6 unit SQ HS 07/17/21 07/17/21 History Metoprolol Tartrate [Lopressor] 12.5 mg PO BID 07/17/21 07/17/21 History Allergies Allergy/AdvReac Type Severity Reaction Status Date / Time bacitracin Allergy Unknown Verified 07/17/21 12:29 [From Neosporin ([id number])] bacitracin zinc Allergy Unknown Verified 07/17/21 12:29 [From Neosporin ([id number])] latex Allergy Rash/Hives Verified 07/17/21 12:29 neomycin sulfate Allergy Unknown Verified 07/17/21 12:29 [From Neosporin ([id number])] polymyxin B Allergy Unknown Verified 07/17/21 12:29 [From Neosporin ([id number])] Penicillins AdvReac Rash & Verified 07/17/21 12:29 Fatigue Sulfa (Sulfonamide AdvReac Rash & Verified 07/17/21 12:29 Antibiotics) Fatigue Physical Exam Vitals: Vital Signs Temp Pulse Resp BP Pulse Ox 07/17/21 11:37 64 20 123/59 100 07/17/21 10:13 97.2 F L 65 18 147/80 99 Intake and Output 07/16/21 07/17/21 07/17/21 22:59 06:59 14:59 Other: Weight 78.925 kg General: non toxic, no distress, appears at stated age Derm: warm, dry Head: atraumatic, normocephalic, symmetric Eyes: EOMI, no lid lag, anicteric sclera Mouth: no lip lesion, mucus membranes moist Cardiovascular: S1S2 reg, no murmur, positive posterior tibial pulse bilateral, Lungs: CTA bilateral, no rhonchi, no rales , no accessory muscle use Abdominal: soft, nontender to palpation, no guarding, no appreciable organomegaly Ext: Left lower extremity wound covered by dressing patient refused to take the dressing off to be examined. Neuro: CN II-XI grossly intact, no focal neuro deficits Psych: Alert, oriented, appropriate affect Results CBC & Chem 7: 07/17/21 11:02 07/17/21 11:54 Labs: Abnormal Lab Results - Last 24 Hours (Table) 07/17/21 07/17/21 07/17/21 Range/Units 08:41 11:02 11:36 RBC 3.64 L (3.80-5.40) m/uL Hgb 10.6 L (11.4-16.0) gm/dL Hct 33.9 L (34.0-46.0) % Plt Count 455 H (150-450) k/uL Sodium (137-145) mmol/L Chloride (98-107) mmol/L BUN 69 H (7-17) mg/dL Creatinine 2.30 H (0.52-1.04) mg/dL Glucose (74-99) mg/dL POC Glucose (mg/dL) (75-99) mg/dL Ur Leukocyte Esterase Small H (Negative) Urine Bacteria Many H (None) /hpf Urine Mucus Rare H (None) /hpf 07/17/21 07/17/21 Range/Units 11:54 14:04 RBC (3.80-5.40) m/uL Hgb (11.4-16.0) gm/dL Hct (34.0-46.0) % Plt Count (150-450) k/uL Sodium 130 L (137-145) mmol/L Chloride 90 L (98-107) mmol/L BUN 67 H (7-17) mg/dL Creatinine 2.09 H (0.52-1.04) mg/dL Glucose 288 H (74-99) mg/dL POC Glucose (mg/dL) 424 H (75-99) mg/dL Ur Leukocyte Esterase (Negative) Urine Bacteria (None) /hpf Urine Mucus (None) /hpf Assessment and Plan Assessment: Assessment and plan: Severe peripheral vascular disease with chronic left lower extremity ulcer -CT angiogram of the abd aorta with runoff was canceled due to worsening renal failure - Vascular surgery recs appreciated. - wound care recs Acute kidney injury -Possibly secondary to overdiuresis -Hold Lasix until seen by nephrology -Nephrology following Chronic kidney disease stage III Chronic systolic CHF with EF 40-45% -Lasix and hold due to worsening renal function -Consider decreasing Lasix to 40 mg once daily instead of twice daily -Cardiology consulted -Resume beta blockers -No KAIT inhibitor due to underlying renal failure Paroxysmal A. fib currently back in sinus rhythm -Normal sinus rhythm -Resume metoprolol -Eliquis Anemia of chronic kidney disease -CBC has been stable, no indication for transfusion -B12 normal, folic acid normal, MMA normal, RBC folate normal, TSH within normal limits -Suspect component of iron deficiency anemia with T sat 4.8, patient's ferritin is 244 but may be falsely elevated due to acute phase reactant. Her overall iron levels are low at 15 and her TIBC is within normal. - Conitnue oral iron therapy, s/p IV iron - needs outpatient follow-up in 4-6 weeks to assess for improvement - heme/onc recs appreciated Insulin-dependent type 2 diabetes mellitus - A1c 8.5 last admission June 2021 -Basal bolus insulin adjusted again Bilateral heel pressure ulcers -Present on admission -wound care consulted Diabetic peripheral neuropathy -Lyrica increased Dyslipidemia -Resume statins Obesity BMI 34 -History of TIA -Resume Eliquis -Resume aspirin and high-dose statins -Carotid stenosis- outpatient follow-up DVT prophylaxis: Eliquis
[2021-07-17 17:15] VITALS: RESP 18
[2021-07-17 17:50] LABS: Glucose,Whole Blood 180 mg/dL (75-99)
[2021-07-17] MEDS: MIDODRINE 5 MG TAB PO SCH (18:02)
[2021-07-17] MEDS: INSULIN ASPART (NovoLOG) 100 UNIT/ML VIAL SQ SCH ×2 (18:09→20:46)
[2021-07-17 20:31] LABS: Glucose,Whole Blood 214 mg/dL (75-99)
[2021-07-17] MEDS: PREGABALIN 100 MG CAP PO SCH (20:35)
[2021-07-17] MEDS: APIXABAN 2.5 MG TABLET PO SCH (20:35)
[2021-07-17] MEDS: METOPROLOL TARTRATE 12.5 MG TAB PO SCH (20:35)
[2021-07-17] MEDS ORDERED: FAMOTIDINE 20 MG TAB PO SCH (21:00)
[2021-07-17] MEDS ORDERED: INSULIN DETEMIR (LEVEMIR) 100 UNIT/ML SYR SQ SCH (21:00)
[2021-07-17] MEDS ORDERED: ATORVASTATIN 80 MG TAB PO SCH (21:00)
[2021-07-18 07:15] LABS: Glucose,Whole Blood 204 mg/dL (75-99)
[2021-07-18 08:08] LABS: Magnesium 1.9 mg/dL (1.6-2.3)
[2021-07-18] MEDS: ACETAMINOPHEN TAB 325 MG TAB PO PRN (08:16)
[2021-07-18] MEDS: INSULIN ASPART (NovoLOG) 100 UNIT/ML VIAL SQ SCH ×2 (08:19→12:05)
--- NOTE | 2021-07-18 08:20 | P.NPCON ---
History of Present Illness - Reason for Consult acute renal failure, chronic renal failure - History of Present Illness Reason for consultation: Acute kidney injury on chronic kidney disease History of present illness: Patient is a 80-year-old female seen in renal consultation for acute kidney injury on chronic kidney disease. Patient was recently admitted to the hospital in June 2021 with acute kidney injury due to cardiorenal syndrome. At that time her creatinine was as low as 1.05 and as high as 1.79. At the time of discharge her creatinine was stable near 1.6. Patient states she went for a CAT scan yesterday and her labs were drawn. Creatinine was elevated and she was subsequently sent to the hospital for acute kidney injury. Creatinine on admission was 2.3 and on repeat it was 2.09. Echocardiogram from June 2021 showed ejection fraction of 40-45% with mild to moderate tricuspid regurgitation and moderate pulmonary hypertension. Renal ultrasound from last month showed no evidence of hydronephrosis. UA is benign. She denies any edema. Patient states her weight has been stable. No fever or chills. No cough. No chest pain or shortness of breath. Denies use of nonsteroidals. She does have history of diabetes. Diuretics are held and she is currently receiving normal s geovanna at 50 mL an hour. Chest x-ray showed no evidence of fluid overload. She does have nonhealing left lower extremity wound and follows with vascular surgery. Vital signs are stable. General: Awake and alert. No acute distress. HEENT: Head exam is unremarkable. LUNGS: Breath sounds decreased. HEART: Rate and Rhythm are regular. ABDOMEN: Soft, no distention. EXTREMITITES: No edema. Left lower extremity wrapped. No drainage. Past Medical History Past Medical History: Diabetes Mellitus, GERD/Reflux, Hypertension, Osteoarthritis (OA), Skin Disorder, Syncope, Vascular Disorder Additional Past Medical History / Comment(s): Arthritis in lower back. Poor circulation in legs, wound left lower leg calf area w/ pain, neuropathy in feet, goes to Wound Center. Edema bilateral lower extremities, wears TEDS on right leg. Shortness of breath.shortness of breathshortness of breath History of Any Multi-Drug Resistant Organisms: None Reported Past Surgical History: Appendectomy, Breast Surgery, Ear Surgery, Heart Catheterization, Heart Catheterization With Stent, Hysterectomy Additional Past Surgical History / Comment(s): Varicose vein stripping left leg, left ear myringotomy/tubes, colonoscopy, left breast biopsy, bilateral cataracts, left leg wound debridement. Past Anesthesia/Blood Transfusion Reactions: No Reported Reaction Date of Last Stent Placement:: 11/26 Past Psychological History: No Psychological Hx Reported Smoking Status: Former smoker Past Alcohol Use History: Rare Past Drug Use History: None Reported - Past Family History Father Family Medical History: Cancer Additional Family Medical History / Comment(s): COLON CANCER. Mother Family Medical History: Diabetes Mellitus, Renal Disease Additional Family Medical History / Comment(s): RENAL FAILURE. Brother(s) Family Medical History: Cancer Additional Family Medical History / Comment(s): 3 brothers - 2 had stomach cancer, 1 had esophageal cancer. Medications and Allergies Home Medications Medication Instructions Recorded Confirmed Type Aspirin EC [Ecotrin Low Dose] 81 mg PO DAILY 05/08/18 07/17/21 History INSULIN ASPART (NovoLOG) [NovoLOG 5 - 12 unit SQ AC-TID 05/08/18 07/17/21 History (formulary)] Pantoprazole Sodium 40 mg PO DAILY 05/08/18 07/17/21 History Cholecalciferol [Vitamin D3 (25 2,000 unit PO DAILY 06/08/19 07/17/21 History Mcg = 1000 Iu)] Cyanocobalamin (Vitamin B-12) 2,000 mcg PO DAILY 06/08/19 07/17/21 History [Vitamin B-12] Famotidine [Pepcid] 20 mg PO HS 06/08/19 07/17/21 History Ferrous Sulfate [Iron (65 MG 325 mg PO DAILY 06/08/19 07/17/21 History Elemental)] Acetaminophen [Tylenol Extra 1,500 mg PO Q6H PRN 03/30/21 07/17/21 History Strength] Ascorbic Acid [Vitamin C] 1,000 mg PO DAILY 03/30/21 07/17/21 History Fluticasone Nasal [place] [Flonase 1 spray EA NOSTRIL DAILY PRN 06/17/21 07/17/21 History Nasal [place]] Apixaban [Eliquis] 2.5 mg PO BID #60 tablet 06/30/21 07/17/21 Rx Atorvastatin [Lipitor] 80 mg PO HS #90 tab 06/30/21 07/17/21 Rx Furosemide [Lasix] 40 mg PO BID@0900,1600 #60 tab 06/30/21 07/17/21 Rx Midodrine [ProAmatine] 5 mg PO AC-TID #90 tab 06/30/21 07/17/21 Rx Pregabalin [Lyrica] 100 mg PO BID #60 cap 06/30/21 07/17/21 Rx ALPRAZolam [Xanax] 0.25 mg PO DAILY PRN 07/17/21 07/17/21 History Collagenase [Santyl Ointment] 1 applic TOPICAL DAILY 07/17/21 07/17/21 History Insulin Glargine [Lantus Vial] 6 unit SQ HS 07/17/21 07/17/21 History Metoprolol Tartrate [Lopressor] 12.5 mg PO BID 07/17/21 07/17/21 History Allergies Allergy/AdvReac Type Severity Reaction Status Date / Time bacitracin Allergy Unknown Verified 07/17/21 12:29 [From Neosporin ([id number])] bacitracin zinc Allergy Unknown Verified 07/17/21 12:29 [From Neosporin ([id number]-pun-ottcu)] latex Allergy Rash/Hives Verified 07/17/21 12:29 neomycin sulfate Allergy Unknown Verified 07/17/21 12:29 [From Neosporin ([id number])] polymyxin B Allergy Unknown Verified 07/17/21 12:29 [From Neosporin ([id number])] Penicillins AdvReac Rash & Verified 07/17/21 12:29 Fatigue Sulfa (Sulfonamide AdvReac Rash & Verified 07/17/21 12:29 Antibiotics) Fatigue Physical Exam Vitals: Vital Signs Temp Pulse Pulse Resp BP BP Pulse Ox 07/18/21 06:21 98.1 F 64 18 152/70 97 07/17/21 20:00 97.6 F 63 18 149/66 97 07/17/21 17:14 97.6 F 67 18 179/73 99 07/17/21 13:30 60 16 97/62 99 07/17/21 11:37 64 20 123/59 100 07/17/21 10:13 97.2 F L 65 18 147/80 99 Intake and Output 07/17/21 07/18/21 07/18/21 22:59 06:59 14:59 Intake Total 400 Balance 400 Intake: Oral 400 Other: Voiding Method Toilet # Voids 1 10 Weight 78.925 kg Results - Lab Results Most recent lab results Calcium 9.0 mg/dL (8.4-10.2) 07/17/21 11:54 Phosphorus 4.4 mg/dL (2.5-4.5) 07/17/21 11:54 Magnesium 1.9 mg/dL (1.6-2.3) 07/18/21 07:06 07/17/21 11:02 07/17/21 11:54 Assessment and Plan Plan: Assessment: 1. Acute kidney injury mostly prerenal secondary to diuresis and cardiorenal syndrome. Creatinine 2.09 yesterday. UA benign. No evidence of hydronephrosis noted on kidney ultrasound done in June 2021. 2. Chronic kidney disease stage IIIB with creatinine near 1.5-1.6 upon discharge in June 2021. Etiology is cardiorenal syndrome. 3. Chronic systolic CHF with ejection fraction of 40-45% with mild to moderate tricuspid regurgitation and moderate pulmonary hypertension. 4. Hyponatremia due to acute kidney injury and hyperglycemia. Appears euvolemic. 5. Diabetes mellitus. 6. Left lower extremity wound being followed by vascular surgery. Plan: Hold Lasix. Hep-Lock IV fluids. Blood sugar control. Avoid nephrotoxins. Continue to monitor renal function and urine output. Patient is advised to monitor her weight closely at home and to call physician if notices worsening edema of greater than 3 pound weight gain in 1 week duration. May be able to decrease dose of Lasix to 40 mg every other day upon discharge. Thank you for the consultation. I will continue to follow the patient with you during her hospital stay.
[2021-07-18] MEDS: MIDODRINE 5 MG TAB PO SCH (08:24)
[2021-07-18 08:34] LABS: African American GFR (CKD) 38 (>60 ml/min/1.73 sqM); Anion Gap 12 mmol/L; Blood Urea Nitrogen 58 mg/dL (7-17); Calcium 9.3 mg/dL (8.4-10.2); Carbon Dioxide 25 mmol/L (22-30); Chloride 96 mmol/L (98-107); Glucose 205 mg/dL (74-99); Non-African American GFR(CKD) 33 (>60 ml/min/1.73 sqM); Potassium 4.2 mmol/L (3.5-5.1); Sodium 133 mmol/L (137-145)
[2021-07-18] MEDS: PREGABALIN 100 MG CAP PO SCH (08:59)
[2021-07-18] MEDS: METOPROLOL TARTRATE 12.5 MG TAB PO SCH (09:00)
[2021-07-18] MEDS ORDERED: ASCORBIC ACID 500 MG TAB PO SCH (09:00)
[2021-07-18] MEDS ORDERED: ASPIRIN 81 MG PO SCH (09:00)
[2021-07-18] MEDS ORDERED: PANTOPRAZOLE 40 MG TABLET PO SCH (09:00)
[2021-07-18] MEDS: APIXABAN 2.5 MG TABLET PO SCH (09:00)
[2021-07-18] MEDS ORDERED: FERROUS SULFATE 325 MG TAB PO SCH (09:00)
[2021-07-18] MEDS ORDERED: CHOLECALCIFEROL 25 MCG (1000 IU) TABLET PO SCH (09:00)
[2021-07-18] MEDS ORDERED: CYANOCOBALAMIN 500 MCG TAB PO SCH (09:00)
[2021-07-18] MEDS ORDERED: COLLAGENASE 250 UNIT/GM OINTMENT 30 GM TUBE TOPICAL SCH ×2 (09:00)
[2021-07-18 11:26] LABS: Basophils # (A) 0.06 X 10*3/uL (0.00-0.10); Basophils % (A) 0.9 %; Eosinophils # (A) 0.31 X 10*3/uL (0.04-0.35); Eosinophils % (A) 4.4 %; HCT 32.2 % (37.2-46.3); Immature Grans, Automated 0.3 %; Lymphocytes # (A) 1.55 X 10*3/uL (0.90-5.00); Lymphocytes % (A) 22.2 %; MCH 28.7 pg (27.0-32.0); MCHC 31.1 g/dL (32.0-37.0); MCV 92.3 fL (80.0-97.0); Mean Platelet Volume 11.6 fL (9.5-12.2); Monocytes # (A) 0.97 X 10*3/uL (0.20-1.00); Monocytes % (A) 13.9 %; NRBC Per 100 WBC 0 /100 WBCS (0.0-0.0); Neutrophils # (A) 4.06 X 10*3/uL (1.80-7.70); Neutrophils % (A) 58.3 %; Platelet Count 440 X 10*3/uL (140-440); RBC 3.49 X 10*6/uL (4.10-5.20); WBC 6.97 X 10*3/uL (4.50-10.00)
[2021-07-18 11:39] LABS: Glucose,Whole Blood 419 mg/dL (75-99)
[2021-07-18 11:57] VITALS: BP 146/66; PULSE 60; TEMP 97.7
[2021-07-18 12:10] VITALS: BMI 32.8
--- NOTE | 2021-07-18 12:28 | P.CRDCN ---
History of Present Illness Consult date: 07/18/21 Consult reason: congestive heart failure History of present illness: The patient is an 80-year-old female patient with CAD with prior PCI of the mid LAD in 2018, type 2 diabetes, hypertension, dyslipidemia, peripheral vascular disease, prior tobacco use. Patient had a recent hospitalization 06/17-06/30 for NSTEMIShe follows in the office with Dr. Hsu was seen in the office last , no medication changes and no symptoms of concern. Was recently hospitalized in June and was seen at that time for non-ST elevated myocardial infarction. Patient was scheduled for heart catheterization but because she developed a TIA this was deferred. Patient did develop new onset of A. fib with RVR and started on eliquis. Patient has been admitted to the hospital after she had blood work done prior to CT angiogram of the abd aorta with runoff that was ordered by Dr. Triana and patient was found to be in PRAVIN. CT was canceled. She complains of fatigue and weakness and she has a chronic wound to the left leg. She denies having any chest pain or shortness of breath.. EKG has new T-wave inversions in the lateral leads Hemoglobin 10.6. Sodium 130, BUN 67 creatinine 2.09. With repeat of 1.47. Troponin negative on one drop. ProBNP 2310. Chest x-ray reveals no acute process. Large hiatal hernia. Correlate for COPD. Echocardiogram 06/20 revealed EF of 40-45% with mild concentric left hypertrophy, LA mildly dilated, mild aortic valve sclerosis, mean gradient of aortic valve 17.05/9.02 mmHg, mild mitral regurgitation, [id number] tricuspid regurgitation, moderate pulmonary hypertension, RVSP 50.24 mmHg. Review Of Systems: Constitutional: No fever, no chills, no night sweats. No weight change. No weakness, fatigue or lethargy. No daytime sleepiness. EENT: No headache. No blurred vision or double vision, no loss of vision. No loss of Hearing, no ringing in the ears, no dizziness. No nasal drainage or congestion. No epistaxis. No sore throat. Lungs: No shortness of breath, cough, no sputum production. No wheezing. Cardiovascular: No chest pain, no lower extremity edema. No palpitations. No paroxysmal nocturnal dyspnea. No orthopnea. No lightheadedness or dizziness. No syncopal episodes. Abdominal: No abdominal pain. No nausea, vomiting. No diarrhea. No constipation. No bloody or tarry stools.. No loss of appetite. Genitourinary: No dysuria, increased frequency, urgency. No urinary retention. Musculoskeletal: No myalgias. No muscle weakness, no gait dysfunction, no frequent falls. No back pain. No neck pain. Integumentary: No wounds, no lesions. No rash or pruritus. No unusual brui sing. No change in hair or nails. Neurologic: No aphasia. No facial droop. No change in mentation. No head injury. No headache. No paralysis. No paresthesia. Psychiatric: No depression. No anxiety. No mood swings. Endocrine: No abnormal blood sugars. No weight change. No excessive sweating or thirst. No cold intolerance. GENERAL: Well-appearing, well-nourished and in no acute distress. NECK: Supple without JVD or thyromegaly. LUNGS: Breath sounds clear to auscultation bilaterally. Respiration equal and unlabored. No wheezes, rales or rhonchi. HEART: Regular rate and rhythm without murmurs, rubs or gallops. S1 and S2 heard. EXTREMITIES: Normal range of motion, no edema. No clubbing or cyanosis. Peripheral pulses intact. Dressing in place to the left lower extremity. ASSESSMENT Acute kidney injury Chronic kidney disease stage IIIB Abnormal EKG with new T-wave inversion in lateral leads Chronic systolic heart failure and cardiomyopathy with EF of 40-45%, unclear if ischemic or nonischemic Paroxysmal atrial fibrillation, now back in sinus mechanism Recent NSTEMI CAD with prior PCI of the mid LAD in 2018 Type 2 diabetes Hypertension Dyslipidemia Peripheral vascular disease Prior tobacco use PLAN Continue cardiac monitoring No need to repeat echocardiogram Continue patient on her home medications of eliquis, aspirin, Lipitor, Lopressor, midodrine Lasix on hold per nephrology Continue to monitor renal function Further recommendations based on clinical course Nurse Practitioner note has been reviewed, I agree with a documented findings and plan of care. Patient was seen and examined. Past Medical History Past Medical History: Diabetes Mellitus, GERD/Reflux, Hypertension, Osteoarthritis (OA), Skin Disorder, Syncope, Vascular Disorder Additional Past Medical History / Comment(s): Arthritis in lower back. Poor circulation in legs, wound left lower leg calf area w/ pain, neuropathy in feet, goes to [facility]. Edema bilateral lower extremities, wears TEDS on right leg. Shortness of breath.shortness of breathshortness of breath History of Any Multi-Drug Resistant Organisms: None Reported Past Surgical History: Appendectomy, Breast Surgery, Ear Surgery, Heart Catheterization, Heart Catheterization With Stent, Hysterectomy Additional Past Surgical History / Comment(s): Varicose vein stripping left leg, left ear myringotomy/tubes, colonoscopy, left breast biopsy, bilateral cataracts, left leg wound debridement. Past Anesthesia/Blood Transfusion Reactions: No Reported Reaction Date of Last Stent Placement:: 11/26 Past Psychological History: No Psychological Hx Reported Smoking Status: Former smoker Past Alcohol Use History: Rare Past Drug Use History: None Reported - Past Family History Father Family Medical History: Cancer Additional Family Medical History / Comment(s): COLON CANCER. Mother Family Medical History: Diabetes Mellitus, Renal Disease Additional Family Medical History / Comment(s): RENAL FAILURE. Brother(s) Family Medical History: Cancer Additional Family Medical History / Comment(s): 3 brothers - 2 had stomach cancer, 1 had esophageal cancer. Medications and Allergies Home Medications Medication Instructions Recorded Confirmed Type Aspirin EC [Ecotrin Low Dose] 81 mg PO DAILY 05/08/18 07/17/21 History INSULIN ASPART (NovoLOG) [NovoLOG 5 - 12 unit SQ AC-TID 05/08/18 07/17/21 History (formulary)] Pantoprazole Sodium 40 mg PO DAILY 05/08/18 07/17/21 History Cholecalciferol [Vitamin D3 (25 2,000 unit PO DAILY 06/08/19 07/17/21 History Mcg = 1000 Iu)] Cyanocobalamin (Vitamin B-12) 2,000 mcg PO DAILY 06/08/19 07/17/21 History [Vitamin B-12] Famotidine [Pepcid] 20 mg PO HS 06/08/19 07/17/21 History Ferrous Sulfate [Iron (65 MG 325 mg PO DAILY 06/08/19 07/17/21 History Elemental)] Acetaminophen [Tylenol Extra 1,500 mg PO Q6H PRN 03/30/21 07/17/21 History Strength] Ascorbic Acid [Vitamin C] 1,000 mg PO DAILY 03/30/21 07/17/21 History Fluticasone Nasal [place] [Flonase 1 spray EA NOSTRIL DAILY PRN 06/17/21 07/17/21 History Nasal [place]] Apixaban [Eliquis] 2.5 mg PO BID #60 tablet 06/30/21 07/17/21 Rx Atorvastatin [Lipitor] 80 mg PO HS #90 tab 06/30/21 07/17/21 Rx Midodrine [ProAmatine] 5 mg PO AC-TID #90 tab 06/30/21 07/17/21 Rx Pregabalin [Lyrica] 100 mg PO BID #60 cap 06/30/21 07/17/21 Rx ALPRAZolam [Xanax] 0.25 mg PO DAILY PRN 07/17/21 07/17/21 History Collagenase [Santyl Ointment] 1 applic TOPICAL DAILY 07/17/21 07/17/21 History Insulin Glargine [Lantus Vial] 6 unit SQ HS 07/17/21 07/17/21 History Metoprolol Tartrate [Lopressor] 12.5 mg PO BID 07/17/21 07/17/21 History Furosemide [Lasix] 20 mg PO DAILY #30 tab 07/18/21 Rx Allergies Allergy/AdvReac Type Severity Reaction Status Date / Time bacitracin Allergy Unknown Verified 07/17/21 12:29 [From Neosporin ([id number])] bacitracin zinc Allergy Unknown Verified 07/17/21 12:29 [From Neosporin ([id number])] latex Allergy Rash/Hives Verified 07/17/21 12:29 neomycin sulfate Allergy Unknown Verified 07/17/21 12:29 [From Neosporin ([id number])] polymyxin B Allergy Unknown Verified 07/17/21 12:29 [From Neosporin ([id number])] Penicillins AdvReac Rash & Verified 07/17/21 12:29 Fatigue Sulfa (Sulfonamide AdvReac Rash & Verified 07/17/21 12:29 Antibiotics) Fatigue Physical Exam Vitals: Vital Signs Temp Pulse Pulse Resp BP BP Pulse Ox 07/18/21 08:52 97.2 F L 66 18 07/18/21 06:21 98.1 F 64 18 152/70 97 07/17/21 20:00 97.6 F 63 18 149/66 97 07/17/21 17:14 97.6 F 67 18 179/73 99 07/17/21 13:30 60 16 97/62 99 07/17/21 11:37 64 20 123/59 100 07/17/21 10:13 97.2 F L 65 18 147/80 99 Intake and Output 07/17/21 07/18/21 07/18/21 22:59 06:59 14:59 Intake Total 400 Balance 400 Intake: Oral 400 Other: Voiding Method Toilet # Voids 1 10 Weight 78.925 kg Results 07/18/21 07:06 07/18/21 07:06 Cardiac Enzymes 07/17/21 07/17/21 Range/Units 11:54 11:54 AST 19 (14-36) U/L Troponin I <0.012 (0.000-0.034) ng/mL CBC 07/17/21 Range/Units 11:02 WBC 9.0 (3.8-10.6) k/uL RBC 3.64 L (3.80-5.40) m/uL Hgb 10.6 L (11.4-16.0) gm/dL Hct 33.9 L (34.0-46.0) % Plt Count 455 H (150-450) k/uL Comprehensive Metabolic Panel 07/17/21 07/18/21 Range/Units 11:54 07:06 Sodium 130 L 133 L (137-145) mmol/L Potassium 4.1 4.2 (3.5-5.1) mmol/L Chloride 90 L 96 L (98-107) mmol/L Carbon Dioxide 27 25 (22-30) mmol/L BUN 67 H 58 H (7-17) mg/dL Creatinine 2.09 H 1.47 H (0.52-1.04) mg/dL Glucose 288 H 205 H (74-99) mg/dL Calcium 9.0 9.3 (8.4-10.2) mg/dL AST 19 (14-36) U/L ALT 10 (4-34) U/L Alkaline Phosphatase 122 (38-126) U/L Total Protein 7.2 (6.3-8.2) g/dL Albumin 3.9 (3.5-5.0) g/dL Current Medications Generic Name Dose Route Start Last Admin Trade Name Freq PRN Reason Stop Dose Admin Acetaminophen 650 mg 07/17/21 13:12 07/18/21 08:16 Acetaminophen Tab 325 Mg Tab PO 650 mg Q6HR PRN Administration Mild Pain or Fever > 100.5 Acetaminophen 1,500 mg 07/17/21 14:15 Acetaminophen Tab 500 Mg Tab PO Q6H PRN Pain Alprazolam 0.25 mg 07/17/21 14:15 Alprazolam 0.25 Mg Tab PO DAILY PRN Anxiety Apixaban 2.5 mg 07/17/21 21:00 07/18/21 09:00 Apixaban 2.5 Mg Tablet PO 2.5 mg BID MARYURI Administration Protocol Ascorbic Acid 1,000 mg 07/18/21 09:00 07/18/21 09:00 Ascorbic Acid 500 Mg Tab PO 1,000 mg DAILY MARYURI Administration Aspirin 81 mg 07/18/21 09:00 07/18/21 09:00 Aspirin 81 Mg PO 81 mg DAILY MARYURI Administration Atorvastatin Calcium 80 mg 07/17/21 21:00 07/17/21 20:35 Atorvastatin 80 Mg Tab PO 80 mg HS [facility] Administration Cholecalciferol 50 mcg 07/18/21 09:00 07/18/21 09:00 Cholecalciferol 25 Mcg (1000 Iu) Tablet PO 50 mcg DAILY MARYURI Administration Collagenase 1 applic 07/18/21 09:00 Collagenase 250 Unit/Gm Ointment 30 Gm Tube TOPICAL DAILY [facility] Protocol Cyanocobalamin 2,000 mcg 07/18/21 09:00 07/18/21 09:00 Cyanocobalamin 500 Mcg Tab PO 2,000 mcg DAILY MARYURI Administration Famotidine 20 mg 07/17/21 21:00 07/17/21 20:35 Famotidine 20 Mg Tab PO 20 mg HS MARYURI Administration Ferrous Sulfate 325 mg 07/18/21 09:00 07/18/21 09:00 Ferrous Sulfate 325 Mg Tab PO 325 mg DAILY MARYURI Administration Fluticasone Propionate 1 spray 07/17/21 14:15 Fluticasone 50mcg/[place] Nasal 16gm EA NOSTRIL DAILY PRN Allergy Symptoms Insulin Aspart 0 unit 07/17/21 17:30 07/18/21 08:19 Insulin Aspart (Novolog) 100 Unit/Ml Vial SQ 2 unit ACHS MARYURI Administration Protocol Insulin Detemir 6 unit 07/17/21 21:00 07/17/21 20:47 Insulin Detemir (Levemir) 100 Unit/Ml Syr SQ 6 unit HS MARYURI Administration Lorazepam 0.5 mg 07/17/21 13:12 Lorazepam 2 Mg/Ml Inj IV Q6HR PRN Anxiety Metoprolol Tartrate 12.5 mg 07/17/21 21:00 07/18/21 09:00 Metoprolol Tartrate 12.5 Mg Tab PO 12.5 mg BID MARYURI Administration Midodrine 5 mg 07/17/21 17:30 07/18/21 08:24 Midodrine 5 Mg Tab PO Not Given AC-TID MARYURI Naloxone HCl 0.2 mg 07/17/21 13:12 Naloxone 0.4 Mg/Ml 1 Ml Vial IV Q2M PRN Opioid Reversal Ondansetron HCl 4 mg 07/17/21 13:12 Ondansetron 4 Mg/2 Ml Vial IVP Q8HR PRN Nausea And Vomiting Pantoprazole Sodium 40 mg 07/18/21 09:00 07/18/21 09:00 Pantoprazole 40 Mg Tablet PO 40 mg DAILY MARYURI Administration Pregabalin 100 mg 07/17/21 21:00 07/18/21 08:59 Pregabalin 100 Mg Cap PO 100 mg BID MARYURI Administration Intake and Output 07/17/21 07/18/21 07/18/21 22:59 06:59 14:59 Intake Total 400 Balance 400 Intake: Oral 400 Other: Voiding Method Toilet # Voids 1 10 Weight 78.925 kg 07/17/21 11:02 07/18/21 07:06
--- NOTE | 2021-07-18 13:02 | P.DS ---
Providers Date of admission: 07/17/21 14:12 Expected date of discharge: 07/18/21 Attending physician: Harshal Schneider MD Consults: 07/17/21 13:04 Consult Physician Routine Consulting Provider: Keren Bledsoe Consult Reason/Comments: Acute kindey injury Do you want consulting provider notified?: Yes 07/17/21 14:18 Consult Physician Routine Consulting Provider: Shayan Hsu Consult Reason/Comments: systolic CHF with PRAVIN on CKD Do you want consulting provider notified?: Yes Primary care physician: Mark Bhandari MD Hospital Course: History of Present Illness H&P Date: 07/17/21 Chief Complaint: Abnormal labs This is an 80-year-old female who was sent to the emergency department from an outpatient computed tomography scan for elevated creatinine and BUN. She saw Dr. Triana in her office 2 days ago and she ordered a CT angiogram of the abd aorta with runoff. Due to the elevated creatinine and BUN, she was unable to la ve the CT scan done, as contrast was needed. Patient denies any chest pain, shortness of breath, dysuria, hematuria, or recent illness. 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 She does have systolic CHF with an EF of 40-45%. She also has bilateral pitting edema. Patient states that she has not gained any weight and the swelling has not increased from baseline. Patient denies any chest pain or shortness of breath. Patient denies any chest pain or shortness of breath. She denies any nausea vomiting or abdominal pain. Physical examination on discharge: General: non toxic, no distress, appears at stated age Derm: warm, dry Head: atraumatic, normocephalic, symmetric Eyes: EOMI, no lid lag, anicteric sclera Mouth: no lip lesion, mucus membranes moist Cardiovascular: S1S2 reg, no murmur, positive posterior tibial pulse bilateral, Lungs: CTA bilateral, no rhonchi, no rales , no accessory muscle use Abdominal: soft, nontender to palpation, no guarding, no appreciable organomegaly Ext: Left lower extremity wound covered by dressing patient refused to take the dressing off to be examined. Neuro: CN II-XI grossly intact, no focal neuro deficits Psych: Alert, oriented, appropriate affect Detailed problem list: Severe peripheral vascular disease with chronic left lower extremity ulcer -CT angiogram of the abd aorta with runoff was canceled due to worsening renal failure - Vascular surgery recs appreciated. - wound care recs Acute kidney injury -Improving -Possibly secondary to overdiuresis -Hold Lasix until seen by nephrology. Nephrology recommended to decrease Lasix. Patient stated that she was taking Lasix 40 mg once daily Lasix dose has changed to 20 mg daily to be started on July 20 -Nephrology following Chronic kidney disease stage III Chronic systolic CHF with EF 40-45% -Lasix and hold due to worsening renal function -Consider decreasing Lasix to 40 mg once daily instead of twice daily -Cardiology consulted -Resume beta blockers -No KAIT inhibitor due to underlying renal failure Paroxysmal A. fib currently back in sinus rhythm -Normal sinus rhythm -Resume metoprolol -Eliquis Anemia of chronic kidney disease -CBC has been stable, no indication for transfusion -B12 normal, folic acid normal, MMA normal, RBC folate normal, TSH within normal limits -Suspect component of iron deficiency anemia with T sat 4.8, patient's ferritin is 244 but may be falsely elevated due to acute phase reactant. Her overall iron levels are low at 15 and her TIBC is within normal. - Conitnue oral iron therapy, s/p IV iron - needs outpatient follow-up in 4-6 weeks to assess for improvement - heme/onc recs appreciated Insulin-dependent type 2 diabetes mellitus - A1c 8.5 last admission June 2021 -Basal bolus insulin adjusted again Bilateral heel pressure ulcers -Present on admission -wound care consulted Diabetic peripheral neuropathy -Lyrica increased Dyslipidemia -Resume statins Obesity BMI 34 -History of TIA -Resume Eliquis -Resume aspirin and high-dose statins -Carotid stenosis- outpatient follow-up Patient Condition at Discharge: Stable Plan - Discharge Summary Discharge Rx Participant: No New Discharge Prescriptions: New Furosemide [Lasix] 20 mg PO DAILY #30 tab Continue Pantoprazole Sodium 40 mg PO DAILY Aspirin EC [Ecotrin Low Dose] 81 mg PO DAILY INSULIN ASPART (NovoLOG) [NovoLOG (formulary)] 5 - 12 unit SQ AC-TID Famotidine [Pepcid] 20 mg PO HS Ferrous Sulfate [Iron (65 MG Elemental)] 325 mg PO DAILY Cyanocobalamin (Vitamin B-12) [Vitamin B-12] 2,000 mcg PO DAILY Cholecalciferol [Vitamin D3 (25 Mcg = 1000 Iu)] 2,000 unit PO DAILY Fluticasone Nasal [place] [Flonase Nasal [place]] 1 spray EA NOSTRIL DAILY PRN PRN Reason: Allergy Symptoms Apixaban [Eliquis] 2.5 mg PO BID #60 tablet Atorvastatin [Lipitor] 80 mg PO HS #90 tab Ascorbic Acid [Vitamin C] 1,000 mg PO DAILY Acetaminophen [Tylenol Extra Strength] 1,500 mg PO Q6H PRN PRN Reason: Pain Pregabalin [Lyrica] 100 mg PO BID #60 cap Midodrine [ProAmatine] 5 mg PO AC-TID #90 tab Collagenase [Santyl Ointment] 1 applic TOPICAL DAILY Metoprolol Tartrate [Lopressor] 12.5 mg PO BID ALPRAZolam [Xanax] 0.25 mg PO DAILY PRN PRN Reason: Anxiety Insulin Glargine [Lantus Vial] 6 unit SQ HS Discontinued Furosemide [Lasix] 40 mg PO BID@0900,1600 #60 tab Discharge Medication List Aspirin EC [Ecotrin Low Dose] 81 mg PO DAILY 05/08/18 [History] INSULIN ASPART (NovoLOG) [NovoLOG (formulary)] 5 - 12 unit SQ AC-TID 05/08/18 [History] Pantoprazole Sodium 40 mg PO DAILY 05/08/18 [History] Cholecalciferol [Vitamin D3 (25 Mcg = 1000 Iu)] 2,000 unit PO DAILY 06/08/19 [History] Cyanocobalamin (Vitamin B-12) [Vitamin B-12] 2,000 mcg PO DAILY 06/08/19 [History] Famotidine [Pepcid] 20 mg PO HS 06/08/19 [History] Ferrous Sulfate [Iron (65 MG Elemental)] 325 mg PO DAILY 06/08/19 [History] Acetaminophen [Tylenol Extra Strength] 1,500 mg PO Q6H PRN 03/30/21 [History] Ascorbic Acid [Vitamin C] 1,000 mg PO DAILY 03/30/21 [History] Fluticasone Nasal [place] [Flonase Nasal [place]] 1 spray EA NOSTRIL DAILY PRN 06/17/21 [History] Apixaban [Eliquis] 2.5 mg PO BID #60 tablet 06/30/21 [Rx] Atorvastatin [Lipitor] 80 mg PO HS #90 tab 06/30/21 [Rx] Midodrine [ProAmatine] 5 mg PO AC-TID #90 tab 06/30/21 [Rx] Pregabalin [Lyrica] 100 mg PO BID #60 cap 06/30/21 [Rx] ALPRAZolam [Xanax] 0.25 mg PO DAILY PRN 07/17/21 [History] Collagenase [Santyl Ointment] 1 applic TOPICAL DAILY 07/17/21 [History] Insulin Glargine [Lantus Vial] 6 unit SQ HS 07/17/21 [History] Metoprolol Tartrate [Lopressor] 12.5 mg PO BID 07/17/21 [History] Furosemide [Lasix] 20 mg PO DAILY #30 tab 07/18/21 [Rx] Follow up Appointment(s)/Referral(s): Mark Bhandari MD [Primary Care Provider] - 1-2 days Patient Instructions/Handouts: Furosemide (By mouth), Acute Kidney Injury (DC)
== END 2021-07-18 14:17 | disposition home or self-care (01) ==
LOC: EC 10:12 → 5NMEDONC 14:12
PROVIDERS: ADMIT Internal Medicine; ATTEND Internal Medicine
DX: E11.51 Type 2 diabetes mellitus with diabetic peripheral angiopathy without gangrene (principal); N17.9 Acute kidney failure, unspecified; E11.40 Type 2 diabetes mellitus with diabetic neuropathy, unspecified; E11.42 Type 2 diabetes mellitus with diabetic polyneuropathy; G62.9 Polyneuropathy, unspecified; I13.0 Hypertensive heart and chronic kidney disease with heart failure and stage 1 through stage 4 chronic kidney disease, or unspecified chronic kidney disease; E11.22 Type 2 diabetes mellitus with diabetic chronic kidney disease; N18.32 Chronic kidney disease, stage 3b; I50.23 Acute on chronic systolic (congestive) heart failure; L89.619 Pressure ulcer of right heel, unspecified stage; L89.629 Pressure ulcer of left heel, unspecified stage; I48.0 Paroxysmal atrial fibrillation; D63.1 Anemia in chronic kidney disease; E11.65 Type 2 diabetes mellitus with hyperglycemia; E78.5 Hyperlipidemia, unspecified; E66.9 Obesity, unspecified; Z68.34 Body mass index [BMI] 34.0-34.9, adult; I65.29 Occlusion and stenosis of unspecified carotid artery; I27.20 Pulmonary hypertension, unspecified; E87.1 Hypo-osmolality and hyponatremia; T50.2X5A Adverse effect of carbonic-anhydrase inhibitors, benzothiadiazides and other diuretics, initial encounter; S81.802A Unspecified open wound, left lower leg, initial encounter; I25.2 Old myocardial infarction; K44.9 Diaphragmatic hernia without obstruction or gangrene; I08.3 Combined rheumatic disorders of mitral, aortic and tricuspid valves; I42.9 Cardiomyopathy, unspecified; L97.929 Non-pressure chronic ulcer of unspecified part of left lower leg with unspecified severity; K21.9 Gastro-esophageal reflux disease without esophagitis; M47.814 Spondylosis without myelopathy or radiculopathy, thoracic region; R60.0 Localized edema; R94.31 Abnormal electrocardiogram [ECG] [EKG]; R00.1 Bradycardia, unspecified; I25.10 Atherosclerotic heart disease of native coronary artery without angina pectoris; Z79.82 Long term (current) use of aspirin; Z79.4 Long term (current) use of insulin; Z79.899 Other long term (current) drug therapy; Z79.01 Long term (current) use of anticoagulants; Z88.1 Allergy status to other antibiotic agents; Z91.040 Latex allergy status; Z88.0 Allergy status to penicillin; Z88.2 Allergy status to sulfonamides; Z90.49 Acquired absence of other specified parts of digestive tract; Z90.710 Acquired absence of both cervix and uterus; Z95.5 Presence of coronary angioplasty implant and graft; Z87.891 Personal history of nicotine dependence; Z86.73 Personal history of transient ischemic attack (TIA), and cerebral infarction without residual deficits; Z86.19 Personal history of other infectious and parasitic diseases; Z71.9 Counseling, unspecified; Z80.0 Family history of malignant neoplasm of digestive organs; Z83.3 Family history of diabetes mellitus; Z84.1 Family history of disorders of kidney and ureter
CPT/HCPCS: 99284; 36415; 93005; 83880; 80053; 80048; 82565; 83605; 83735 ×2; 84100; 84520; 84484; 85025 ×2; 81001; 71046; G0378 ×2

== ENCOUNTER 2021-08-12 13:28 | Day surgery (SDC) | payer MEDICARE ==
[2021-08-11 14:32] VITALS: BMI 32.8
[~2021-08-12 13:28] MED LIST changes: +ALPRAZolam 0.25 MG TAB PO PRN; +ASPIRIN 325 MG TAB PO PRN; -DEXAMETHASONE SOD PHOSPHATE 4 MG/ML 1 ML VIAL IV ONE; -HYDROmorphone 0.5 MG/0.5 ML SYRINGE IVP PRN; -LACTATED RINGERS 1,000 ML IV SCH; -LIDOCAINE 1% (10MG/ML) FOR IV START INTRADERMA PRN; -MIDAZOLAM 2 MG/2 ML VIAL IV PRN; -ONDANSETRON 4 MG/2 ML VIAL IVP ONE; -Pre Op ABX Message 1 EACH MISC MISCELLANE ONE; +SODIUM CHLORIDE 0.9% 1,000 ML in EMPTY BAG 1 BAG IV ONE
[2021-08-12] MEDS ORDERED: SODIUM CHLORIDE 0.9% 1,000 ML IV ONE (13:50)
[2021-08-12 14:12] LABS: Glucose,Whole Blood 194 mg/dL (75-99)
[2021-08-12] MEDS ORDERED: fentaNYL (PF) 50 MCG/ML 2 ML AMP ONE (15:44)
[2021-08-12] MEDS ORDERED: LIDOCAINE 1% PF 10 MG/ML (5 ML AMP) SQ ONE (15:54)
[2021-08-12] MEDS: fentaNYL (PF) 50 MCG/ML 2 ML AMP IV ONE ×2 (15:55→16:07)
[2021-08-12] MEDS: MIDAZOLAM 2 MG/2 ML VIAL IV ONE ×2 (15:55→15:59)
[2021-08-12] MEDS ORDERED: IOPAMIDOL-250 50ML BTL INTRAARTER ONE (16:13)
[2021-08-12] MEDS ORDERED: HYDROmorphone 0.5 MG/0.5 ML SYRINGE IVP ONE (16:16)
[2021-08-12] MEDS ORDERED: NALOXONE 0.4 MG/ML 1 ML VIAL IVP PRN (16:41)
--- NOTE | 2021-08-12 16:41 | P.OP ---
Date of Procedure: 08/12/21 Description of Procedure: Preoperative diagnosis: [Left lower extremity Wilkinson 5 peripheral arterial disease] Postoperative diagnosis: Same left superficial femoral artery occlusive disease, one-vessel runoff via anterior tibial to the ankle Procedure: [#1 ultrasound-guided right common femoral artery access 2.CO2 aortogram 3.left lower extremity selective angiogram second order to external iliac artery 4 moderate conscious sedation since 29 minutes] Surgeon: Francoise Triana D.O. EBL: [Less than 10 mL] IV fluids: [See records] Urine output: [Not measured] Drains: [None] Complications: [None immediately apparent] Condition: [Stable to recovery] Operative indication and findings: [Patient is an 80-year-old female who's had a left sided calf wound for the past many months is been growing in size. She also sustained a pressure ulceration on her heel. She continues to have severe pain in her left lower extremity at rest and need to dangle her foot up the side of the bed in order to alleviate some of the pain. Initially attempts were made to obtain a CT angiogram with runoffs however the patient's renal function was too bad to undergo this therefore the decision was made undergo a CO2 angiogram. Risks and benefits were discussed. She seemingly understood and is willing to proceed.] Procedure in detail: [The patient was taken to the special suite and placed in supine position. Bilateral groins are prepped and draped in usual sterile fashion. A preprocedure timeout performed, all parties are in agreement. Using THE RIGHT COMMON FEMORAL ARTERY WAS IDENTIFIED. THE SKIN OVERLYING WAS ANESTHETIZED 1% LIDOCAINE PLAIN. USING A MICROPUNCTURE PURPOSE NEEDLE. The common femoral artery was accessed and Seldinger technique was used with 5- Amharic sheath. Catheters and wires were used access the aorta. An aortogram with CO2 was performed revealing a normal appearing aorta. Small caliber vessels. The right common and external iliac appeared patent without significant disease. There is a source of the left common and external iliac artery are patent without disease. Multiple attempts at segmental evaluations with the CO2 angiogram were performed however were not successful other than generalized superficial femoral artery disease on the left. At that point the left external iliac artery was selected. Small amounts of very dilute contrast was utilized and a selective angiogram is were performed. The external iliac artery appeared patent without significant disease. The common femoral artery and profunda are patent without significant disease. Superficial femoral artery has severe disease throughout with multiple areas of full occlusion. There is reconstitution briefly at the level of the P1 segment. The popliteal artery itself is diseased and diminutive in size. Difficult to determine whether this reconstitutes via collateral branches were in-line flow. The anterior tibial artery is patent but diminutive in size and was severe disease at the level of the ankle. The tibial peroneal trunk is occluded shortly after takeoff no evidence of reconstitution. Catheters and wires were then removed. Sheath was removed and manual pressure was held until hemostasis was adequate. Patient will need discussion regarding possible femoral atherectomy, if she undergoes endovascular procedure she will need general anesthesia due to her pain and inability to tolerate any sort of intervention or light pressure at all]
[2021-08-12] MEDS ORDERED: HYDROcodone/APAP 5-325MG 1 EACH TAB PO PRN (16:59)
[2021-08-12 21:05] LABS: Glucose,Whole Blood 310 mg/dL (75-99)
[2021-08-12] MEDS ORDERED: INSULIN ASPART (NovoLOG) 100 UNIT/ML VIAL SQ SCH (21:59)
[2021-08-12] MEDS ORDERED: INSULIN DETEMIR (LEVEMIR) 100 UNIT/ML SYR SQ SCH (22:00)
[2021-08-12] MEDS: INSULIN ASPART (NovoLOG) 100 UNIT/ML VIAL SQ SCH (22:22)
[2021-08-12] MEDS ORDERED: ZOLPIDEM 5 MG TAB PO PRN (23:48)
[2021-08-12] MEDS ORDERED: ACETAMINOPHEN TAB 500 MG TAB PO PRN (23:48)
--- NOTE | 2021-08-12 23:53 | P.CONS ---
History of Present Illness - Reason for Consult Consult date: 08/12/21 medical management Requesting physician: Francoise Triana - Chief Complaint left calf wound - History of Present Illness 80-year-old female with hypertension, diabetes mellitus, peripheral arterial disease, Patient comes in for surgical evaluation regarding left peripheral arterial disease patient has been having chronic nonhealing wound over her left leg and ankle this been going on for couple months resulting in pain and discomfort in her left lower extremity where she finds it very difficult to get a comfortable position. Patient tolerated procedure very well denies any observed immediate complications denies any swelling or ecchymosis at the site of entry in the right groin. Denies any chest pain or trouble breathing denies any nausea vomiting abdominal pain denies any changes in her urinary or bowel habits No blood work available however records indicates that her renal function was elevated Review of Systems Pertinent positives as noted in HPI. All other systems were reviewed and are negative Past Medical History Past Medical History: Diabetes Mellitus, GERD/Reflux, Hypertension, Osteoarthritis (OA), Skin Disorder, Syncope, Vascular Disorder Additional Past Medical History / Comment(s): Arthritis in lower back. Poor circulation in legs, wound left lower leg calf area w/ pain, neuropathy in feet, goes to [facility]. Edema bilateral lower extremities, wears TEDS on right leg. Shortness of breath.shortness of breathshortness of breath History of Any Multi-Drug Resistant Organisms: None Reported Past Surgical History: Appendectomy, Breast Surgery, Ear Surgery, Heart Catheterization, Heart Catheterization With Stent, Hysterectomy Additional Past Surgical History / Comment(s): Varicose vein stripping left leg, left ear myringotomy/tubes, colonoscopy, left breast biopsy, bilateral cataracts, left leg wound debridement. Past Anesthesia/Blood Transfusion Reactions: No Reported Reaction Date of Last Stent Placement:: 11/26 Past Psychological History: No Psychological Hx Reported Additional Psychological History / Comment(s): Pt resides with her spouse. She states she has no home care. She uses a walker to ambulate. Her spouse drives. Smoking Status: Former smoker Past Alcohol Use History: Rare Additional Past Alcohol Use History / Comment(s): STARTED SMOKING AT AGE 14, SMOKED 2PPD, QUIT IN I991. Past Drug Use History: None Reported - Past Family History Father Family Medical History: Cancer Additional Family Medical History / Comment(s): COLON CANCER. Mother Family Medical History: Diabetes Mellitus, Renal Disease Additional Family Medical History / Comment(s): RENAL FAILURE. Brother(s) Family Medical History: Cancer Additional Family Medical History / Comment(s): 3 brothers - 2 had stomach cancer, 1 had esophageal cancer. Medications and Allergies Home Medications Medication Instructions Recorded Confirmed Type Aspirin EC [Ecotrin Low Dose] 81 mg PO DAILY 05/08/18 08/12/21 History INSULIN ASPART (NovoLOG) [NovoLOG 5 - 12 unit SQ AC-TID 05/08/18 08/12/21 History (formulary)] Pantoprazole Sodium 40 mg PO DAILY 05/08/18 08/12/21 History Cholecalciferol [Vitamin D3 (25 2,000 unit PO DAILY 06/08/19 08/12/21 History Mcg = 1000 Iu)] Famotidine [Pepcid] 20 mg PO HS 06/08/19 08/12/21 History Ferrous Sulfate [Iron (65 MG 325 mg PO BID 06/08/19 08/12/21 History Elemental)] Acetaminophen [Tylenol Extra 1,500 mg PO Q6H PRN 03/30/21 08/12/21 History Strength] Ascorbic Acid [Vitamin C] 1,000 mg PO DAILY 03/30/21 08/12/21 History Fluticasone Nasal [place] [Flonase 1 spray EA NOSTRIL DAILY PRN 06/17/21 08/11/21 History Nasal [place]] Apixaban [Eliquis] 2.5 mg PO BID #60 tablet 06/30/21 08/11/21 Rx Atorvastatin [Lipitor] 80 mg PO HS #90 tab 06/30/21 08/12/21 Rx Insulin Glargine [Lantus Vial] 15 unit SQ HS 07/17/21 08/12/21 History Furosemide [Lasix] 40 mg PO Q48H 08/11/21 08/12/21 History hydroCHLOROthiazide 25 mg PO DAILY 08/11/21 08/12/21 History Allergies Allergy/AdvReac Type Severity Reaction Status Date / Time bacitracin Allergy Unknown Verified 08/12/21 13:54 [From Neosporin ([id number])] bacitracin zinc Allergy Unknown Verified 08/12/21 13:54 [From Neosporin ([id number])] latex Allergy Rash/Hives Verified 08/12/21 13:54 neomycin sulfate Allergy Unknown Verified 08/12/21 13:54 [From Neosporin ([id number])] polymyxin B Allergy Unknown Verified 08/12/21 13:54 [From Neosporin ([id number])] Penicillins AdvReac Rash & Verified 08/12/21 13:54 Fatigue Sulfa (Sulfonamide AdvReac Rash & Verified 08/12/21 13:54 Antibiotics) Fatigue Physical Exam Vitals: Vital Signs Temp Pulse Pulse Pulse Resp BP BP 08/12/21 19:24 83 18 08/12/21 18:40 83 76 08/12/21 18:30 76 18 97/47 08/12/21 18:02 80 95/64 08/12/21 17:38 98.1 F 75 18 114/67 08/12/21 17:26 83 16 127/69 08/12/21 17:11 81 16 126/70 08/12/21 16:56 83 16 119/67 08/12/21 16:41 80 16 117/69 08/12/21 14:56 97.8 F 71 16 132/61 Pulse Ox 08/12/21 19:24 08/12/21 18:40 08/12/21 18:30 98 08/12/21 18:02 95 08/12/21 17:38 100 08/12/21 17:26 97 08/12/21 17:11 95 08/12/21 16:56 94 L 08/12/21 16:41 96 08/12/21 14:56 99 Intake and Output 08/12/21 08/12/21 08/13/21 14:59 22:59 06:59 Intake Total 50 0 Output Total 300 Balance 50 -300 Intake: IV 50 0 Output: Urine 300 Other: Voiding Method Bedpan # Voids 2 Weight 79.7 kg 79.7 kg Constitutional: No acute distress, conversant, pleasant Eyes: Anicteric sclerae, moist conjunctiva, Pupils equal round reactive to light ENMT: NC/AT Oropharynx clear, no erythema, or exudates Neck: Supple no masses, or JVD No carotid bruits No thyromegaly Lungs: Clear to auscultation Clear to percussion Normal respiratory effort, no accessory muscle use Cardiovascular: Heart regular in rate and rhythm, No murmurs, gallops, or rubs No peripheral edema Abdominal: Soft Nontender, no guarding, rebound or rigidity Abdomen moving with respiration Normoactive bowel sounds No hepatomegaly, No splenomegaly No palpable mass No abdominal wall hernia noted Skin: Chronic skin changes over the left leg, surgical dressing over the left leg and ankle otherwise Normal temperature, tone, texture, turgor Extremities: Patient had her left leg tingling of the bed for comfort No digital cyanosis No clubbing Pedal pulses weak on the left side , capillary refill is immediate Radial pulses intact and symmetrical Tenderness to light touch of bilateral legs Psychiatric: Alert and oriented to person, place and time Appropriate affect fair judgement Neuro Muscles Strength 4/5 in all 4 extremities Sensation to light touch grossly present throughout Cranial nerves II-XII grossly intact No focal sensory deficits Lymphatics: no palpable cervical or supraclavicular , or inguinal lymph nodes Results Labs: Abnormal Lab Results - Last 24 Hours (Table) 08/12/21 08/12/21 Range/Units 14:05 21:04 POC Glucose (mg/dL) 194 H 310 H (75-99) mg/dL Assessment and Plan Assessment: Peripheral arterial disease status post CO2 angiogram showing severe disease in the left superficial femoral, popliteal and tibial arteries Further management and recommendations per primary team Consider continuing aspirin and Eliquis once cleared by surgery Diabetes mellitus Continue with basal insulin Continue with insulin sliding scale Follow-up morning labs CBC and renal function Full code Thank you for allowing us to participate in the care of this patient. Do not hesitate to contact us with questions. Someone can be reached from the [facility] hospitalist group at all hours of the day at [phone].
[2021-08-13 04:12] VITALS: RESP 18
--- NOTE | 2021-08-13 07:28 | P.DS ---
Providers Expected date of discharge: 08/13/21 Attending physician: Francoise Triana, Consults: 08/12/21 16:41 Consult Physician Routine Consulting Provider: Mark Bhandari Consult Reason/Comments: med mgmnt Do you want consulting provider notified?: Yes 08/12/21 18:10 Consult Physician Routine Consulting Provider: Anjelica Jaramillo Consult Reason/Comments: Medical management Do you want consulting provider notified?: Yes Primary care physician: Mark Bhandari MD Hospital Course: Discharge diagnosis left superficial femoral artery occlusive disease, left lower extremity Alexey 5 peripheral arterial disease, status post CO2 aortogram, angiogram to external iliac artery This is an 80-year-old female with multiple comorbidities with known peripheral arterial disease. Patient came in for scheduled aortogram and angiogram. Procedure ended later in the day so patient stayed overnight. She is without any major complaints. Vital signs are stable. She's afebrile. No signs of bleeding from site. General appearance: The patient is alert, oriented, appears in no acute distress. HET: Head is normocephalic and atraumatic. Pupils are equal and reactive. Neck: Supple without lymphadenopathy. Trachea midline. Heart: S1 S2. Regular rate and rhythm. Lungs: Clear to auscultation bilaterally. Abdomen: Soft, nontender, nondistended. Extremities: Bilateral lower extremity swelling. Left lower extremity with dressing in place. Bilateral lower extremities warm to touch with good capillary refill. Neurological: No focal deficits. Strength and sensation are grossly intact. The impression and plan of care has been dictated as directed. Dr. Triana I performed a history and examination of this patient, discussed the same with the dictator. I agree with the dictator's note ,documented as a scribe. Any additional findings or plans will be noted. Procedures: Procedure: [#1 ultrasound-guided right common femoral artery access 2.CO2 aortogram 3.left lower extremity selective angiogram second order to external iliac artery 4 moderate conscious sedation since 29 minutes] Patient Condition at Discharge: Stable Plan - Discharge Summary Discharge Rx Participant: No New Discharge Prescriptions: Continue Pantoprazole Sodium 40 mg PO DAILY Aspirin EC [Ecotrin Low Dose] 81 mg PO DAILY INSULIN ASPART (NovoLOG) [NovoLOG (formulary)] 5 - 12 unit SQ AC-TID Famotidine [Pepcid] 20 mg PO HS Cholecalciferol [Vitamin D3 (25 Mcg = 1000 Iu)] 2,000 unit PO DAILY Fluticasone Nasal [place] [Flonase Nasal [place]] 1 spray EA NOSTRIL DAILY PRN PRN Reason: Allergy Symptoms Apixaban [Eliquis] 2.5 mg PO BID #60 tablet Atorvastatin [Lipitor] 80 mg PO HS #90 tab Furosemide [Lasix] 40 mg PO Q48H hydroCHLOROthiazide 25 mg PO DAILY Ascorbic Acid [Vitamin C] 1,000 mg PO DAILY Acetaminophen [Tylenol Extra Strength] 1,500 mg PO Q6H PRN PRN Reason: Pain Insulin Glargine [Lantus Vial] 15 unit SQ HS No Action Ferrous Sulfate [Iron (65 MG Elemental)] 325 mg PO BID Discharge Medication List Aspirin EC [Ecotrin Low Dose] 81 mg PO DAILY 05/08/18 [History] INSULIN ASPART (NovoLOG) [NovoLOG (formulary)] 5 - 12 unit SQ AC-TID 05/08/18 [History] Pantoprazole Sodium 40 mg PO DAILY 05/08/18 [History] Cholecalciferol [Vitamin D3 (25 Mcg = 1000 Iu)] 2,000 unit PO DAILY 06/08/19 [History] Famotidine [Pepcid] 20 mg PO HS 06/08/19 [History] Ferrous Sulfate [Iron (65 MG Elemental)] 325 mg PO BID 06/08/19 [History] Acetaminophen [Tylenol Extra Strength] 1,500 mg PO Q6H PRN 03/30/21 [History] Ascorbic Acid [Vitamin C] 1,000 mg PO DAILY 03/30/21 [History] Fluticasone Nasal [place] [Flonase Nasal [place]] 1 spray EA NOSTRIL DAILY PRN 06/17/21 [History] Apixaban [Eliquis] 2.5 mg PO BID #60 tablet 06/30/21 [Rx] Atorvastatin [Lipitor] 80 mg PO HS #90 tab 06/30/21 [Rx] Insulin Glargine [Lantus Vial] 15 unit SQ HS 07/17/21 [History] Furosemide [Lasix] 40 mg PO Q48H 08/11/21 [History] hydroCHLOROthiazide 25 mg PO DAILY 08/11/21 [History] Follow up Appointment(s)/Referral(s): Francoise Triana DO [STAFF PHYSICIAN] - 1 Week Mark Bhandari MD [Primary Care Provider] - 1 Week Activity/Diet/Wound Care/Special Instructions: No heavy, lifting, pushing, or pulling of objects greater than 10-15 pounds. No vigorous activity. Shower daily; no tub baths, pools, or hot tubs. No driving until seen by surgeon in follow-up visit. Notify surgeon with inability to pass flatus or have bowel movements, fever greater than 101, changes in incision such as redness, swelling, drainage, or increased pain. Patient verbalized understanding of discharge instructions. Discharge Disposition: HOME SELF-CARE
[2021-08-13] MEDS ORDERED: PANTOPRAZOLE 40 MG TABLET PO SCH (07:30)
[2021-08-13 08:00] LABS: Glucose,Whole Blood 171 mg/dL (75-99)
[2021-08-13] MEDS: INSULIN ASPART (NovoLOG) 100 UNIT/ML VIAL SQ SCH (08:17)
[2021-08-13] MEDS ORDERED: hydroCHLOROthiazide 25 MG TAB PO SCH (09:00)
--- NOTE | 2021-08-13 09:30 | IR ---
EXAMINATION TYPE: IR angio abdominal w runoff DATE OF EXAM: 08/12/2021 COMPARISON: NONE HISTORY: Fluoroscopy time. Fluoroscopy was provided to the referring clinician.
[2021-08-13 09:47] VITALS: PULSE 69; TEMP 97.9
[2021-08-13 10:02] VITALS: BP 104/68
[2021-08-13] MEDS ORDERED: ATORVASTATIN 80 MG TAB PO SCH (21:00)
== END 2021-08-13 10:04 | disposition home or self-care (01) ==
LOC: CATHCVL 13:28 → 6NMEDSUR 16:22 → CATHCVL 08-13 10:04
PROVIDERS: ATTEND Surgery
DX: I77.1 Stricture of artery (principal); E11.36 Type 2 diabetes mellitus with diabetic cataract; E11.51 Type 2 diabetes mellitus with diabetic peripheral angiopathy without gangrene; I10 Essential (primary) hypertension; K21.9 Gastro-esophageal reflux disease without esophagitis; M19.90 Unspecified osteoarthritis, unspecified site; Z79.01 Long term (current) use of anticoagulants; Z79.4 Long term (current) use of insulin; Z79.82 Long term (current) use of aspirin; Z79.899 Other long term (current) drug therapy; Z83.3 Family history of diabetes mellitus; Z87.891 Personal history of nicotine dependence; Z88.0 Allergy status to penicillin; Z88.2 Allergy status to sulfonamides; Z90.49 Acquired absence of other specified parts of digestive tract; Z91.040 Latex allergy status; Z80.9 Family history of malignant neoplasm, unspecified
CPT/HCPCS: 36247; 36200; 36246; 75716; C1769 ×5; C1894; J2250; J2001; J3010; J1170; Q9966

== ENCOUNTER 2021-08-28 13:43 | Emergency (ER) | payer MEDICARE ==
[2021-08-28] MEDS ORDERED: KETOROLAC 15 MG/ML 1 ML VIAL IVP STA (14:17)
[2021-08-28] MEDS ORDERED: HYDROmorphone 0.5 MG/0.5 ML SYRINGE IVP STA (14:17)
[2021-08-28 14:33] LABS: Basophils # (A) 0.1 k/uL (0-0.2); Basophils % (A) 1 %; Eosinophils # (A) 0.3 k/uL (0-0.7); Eosinophils % (A) 4 %; HCT 28.8 % (34.0-46.0); HGB 9.2 gm/dL (11.4-16.0); Lymphocytes # (A) 1.3 k/uL (1.0-4.8); Lymphocytes % (A) 15 %; MCH 28.9 pg (25.0-35.0); MCV 90.3 fL (80.0-100.0); Mean Platelet Volume 7.9; Monocytes # (A) 0.5 k/uL (0-1.0); Monocytes % (A) 5 %; Neutrophils # (A) 6.2 k/uL (1.3-7.7); Neutrophils % (A) 74 %; Platelet Count 499 k/uL (150-450); RDW 15.2 % (11.5-15.5); WBC 8.4 k/uL (3.8-10.6)
[2021-08-28 14:42] LABS: Albumin 3.8 g/dL (3.5-5.0); Calcium 8.7 mg/dL (8.4-10.2); Potassium 4.6 mmol/L (3.5-5.1); Total Bilirubin 0.2 mg/dL (0.2-1.3); Total Protein 6.7 g/dL (6.3-8.2)
[2021-08-28] MEDS ORDERED: GELATIN SPONGE,ABSORB (LARGE) 1 EACH SPONGE TOPICAL STA (14:56)
[2021-08-28] MEDS ORDERED: LORazepam 2 MG/ML INJ IV STA (15:10)
[2021-08-28] MEDS: LIDOCAINE 1%-EPI 1:100,000 20 ML VIAL SQ ONE ×2 (15:14→16:50)
--- NOTE | 2021-08-28 15:41 | ED ---
General Adult HPI - General Chief complaint: Recheck/Abnormal Lab/Rx Stated complaint: Hemorage Time Seen by Provider: 08/28/21 14:00 Source: patient, EMS, RN notes reviewed, old records reviewed Mode of arrival: EMS Limitations: no limitations - History of Present Illness Initial comments: This is an 80-year-old female who has a chronic wound on her left medial leg while she was cleaning it today it started bleeding. Patient states she couldn't get it to stop so she came to the emergency department. Patient denies any new injury. Patient denies any other complaints. Patient states she is on eliquis. - Related Data Home Medications Medication Instructions Recorded Confirmed Aspirin EC [Ecotrin Low Dose] 81 mg PO DAILY 05/08/18 08/28/21 Pantoprazole Sodium 40 mg PO DAILY 05/08/18 08/28/21 Cholecalciferol [Vitamin D3 (25 50 mcg PO DAILY 06/08/19 08/28/21 Mcg = 1000 Iu)] Famotidine [Pepcid] 20 mg PO HS 06/08/19 08/28/21 Ferrous Sulfate [Iron (65 MG 325 mg PO BID 06/08/19 08/28/21 Elemental)] Acetaminophen [Tylenol Extra 1,000 mg PO Q6H PRN 03/30/21 08/28/21 Strength] Ascorbic Acid [Vitamin C] 1,000 mg PO DAILY 03/30/21 08/28/21 Fluticasone Nasal [place] [Flonase 1 spr EA NOSTRIL DAILY PRN 06/17/21 08/28/21 Nasal [place]] Furosemide [Lasix] 60 mg PO BID@0900,1500 08/11/21 08/28/21 hydroCHLOROthiazide 25 mg PO DAILY 08/11/21 08/28/21 Baclofen 5 mg PO TID PRN 08/28/21 08/28/21 HYDROcodone/APAP 5-325MG [[place] 1 tab PO Q6H PRN 08/28/21 08/28/21 5-325] Insulin Aspart [NovoLOG Flexpen] See Protocol SQ AC-TID 08/28/21 08/28/21 Insulin Glargine,Hum.rec.anlog 15 units SQ HS 08/28/21 08/28/21 [Lantus Solostar Pen] Previous Rx's Medication Instructions Recorded Apixaban [Eliquis] 2.5 mg PO BID #60 tablet 06/30/21 Atorvastatin [Lipitor] 80 mg PO HS #90 tab 06/30/21 Allergies Allergy/AdvReac Type Severity Reaction Status Date / Time bacitracin Allergy Unknown Verified 08/28/21 15:51 [From Neosporin ([id number])] bacitracin zinc Allergy Unknown Verified 08/28/21 15:51 [From Neosporin ([id number])] latex Allergy Rash/Hives Verified 08/28/21 15:51 neomycin sulfate Allergy Unknown Verified 08/28/21 15:51 [From Neosporin ([id number])] Penicillins Allergy Rash & Verified 08/28/21 15:51 Fatigue polymyxin B Allergy Unknown Verified 08/28/21 15:51 [From Neosporin ([id number])] Sulfa (Sulfonamide Allergy Rash & Verified 08/28/21 15:51 Antibiotics) Fatigue Review of Systems ROS Statement: Those systems with pertinent positive or pertinent negative responses have been documented in the HPI. ROS Other: All systems not noted in ROS Statement are negative. Past Medical History Past Medical History: Diabetes Mellitus, GERD/Reflux, Hypertension, Osteoarthritis (OA), Skin Disorder, Syncope, Vascular Disorder Additional Past Medical History / Comment(s): Arthritis in lower back. Poor circulation in legs, wound left lower leg calf area w/ pain, neuropathy in feet, goes to Wound Center. Edema bilateral lower extremities, wears TEDS on right leg. Shortness of breath.shortness of breathshortness of breathshortness of breath History of Any Multi-Drug Resistant Organisms: None Reported Past Surgical History: Appendectomy, Breast Surgery, Ear Surgery, Heart Catheterization, Heart Catheterization With Stent, Hysterectomy Additional Past Surgical History / Comment(s): Varicose vein stripping left leg, left ear myringotomy/tubes, colonoscopy, left breast biopsy, bilateral cataract s, left leg wound debridement. Past Anesthesia/Blood Transfusion Reactions: No Reported Reaction Date of Last Stent Placement:: 11/26 Past Psychological History: No Psychological Hx Reported Smoking Status: Former smoker Past Alcohol Use History: Rare Past Drug Use History: None Reported - Past Family History Father Family Medical History: Cancer Additional Family Medical History / Comment(s): COLON CANCER. Mother Family Medical History: Diabetes Mellitus, Renal Disease Additional Family Medical History / Comment(s): RENAL FAILURE. Brother(s) Family Medical History: Cancer Additional Family Medical History / Comment(s): 3 brothers - 2 had stomach ca ncer, 1 had esophageal cancer. General Exam - General Exam Comments Initial Comments: GENERAL Patient is well-developed and well-nourished. Patient is in mild distress. EYES Patient's pupils are equal and round. Extraocular motion is intact SKIN Unremarkable NEURO The patient is alert and oriented 3 PYSCH Patient has normal interpersonal interactions. MUSCULOSKELETAL Lower leg has a chronic wound on the medial aspect there is a site of bleeding however after the patient blood pressure for about 10 minutes with her finger it seems to stopped at this point in time. Limitations: no limitations Course Vital Signs 08/28/21 13:50 Temperature 97.3 F L Pulse Rate 91 Respiratory 18 Rate Blood Pressure 141/53 O2 Sat by Pulse 100 Oximetry Medical Decision Making - Medical Decision Making Patient had no further bleeding in the emergency department and so she she was wrapped up with a little pressure on the site that was bleeding and she was given instructions on what to do if it were to rebleed - Lab Data Result diagrams: 08/28/21 14:21 08/28/21 14:21 Lab Results 08/28/21 08/28/21 08/28/21 Range/Units 14:21 14:21 14:24 WBC 8.4 (3.8-10.6) k/uL RBC 3.20 L (3.80-5.40) m/uL Hgb 9.2 L (11.4-16.0) gm/dL Hct 28.8 L (34.0-46.0) % MCV 90.3 (80.0-100.0) fL MCH 28.9 (25.0-35.0) pg MCHC 32.0 (31.0-37.0) g/dL RDW 15.2 (11.5-15.5) % Plt Count 499 H (150-450) k/uL MPV 7.9 Neutrophils % 74 % Lymphocytes % 15 % Monocytes % 5 % Eosinophils % 4 % Basophils % 1 % Neutrophils # 6.2 (1.3-7.7) k/uL Lymphocytes # 1.3 (1.0-4.8) k/uL Monocytes # 0.5 (0-1.0) k/uL Eosinophils # 0.3 (0-0.7) k/uL Basophils # 0.1 (0-0.2) k/uL Sodium 135 L (137-145) mmol/L Potassium 4.6 (3.5-5.1) mmol/L Chloride 105 (98-107) mmol/L Carbon Dioxide 18 L (22-30) mmol/L Anion Gap 12 mmol/L BUN 39 H (7-17) mg/dL Creatinine 1.17 H (0.52-1.04) mg/dL Est GFR (CKD-EPI)AfAm 51 (>60 ml/min/1.73 sqM) Est GFR (CKD-EPI)NonAf 44 (>60 ml/min/1.73 sqM) Glucose 299 H (74-99) mg/dL Plasma Lactic Acid [place] 2.8 H* (0.7-2.0) mmol/L Calcium 8.7 (8.4-10.2) mg/dL Total Bilirubin 0.2 (0.2-1.3) mg/dL AST 21 (14-36) U/L ALT 13 (4-34) U/L Alkaline Phosphatase 73 (38-126) U/L Total Protein 6.7 (6.3-8.2) g/dL Albumin 3.8 (3.5-5.0) g/dL Disposition Clinical Impression: Bleeding from wound Disposition: HOME SELF-CARE Condition: Good Additional Instructions: Patient needs to apply direct pressure if the wound begins to bleed again. Patient should not release the pressure for at least 15 minutes and it stopped bleeding to rewrap it if it does not tried again and come back if he bleeds a second time. Is patient prescribed a controlled substance at d/c from ED?: No Referrals: Mark Bhandari MD [Primary Care Provider] - 1-2 days Time of Disposition: 16:26
[2021-08-28 17:04] VITALS: BP 136/50; PULSE 82; RESP 20; TEMP 97.6
== END 2021-08-28 17:04 | disposition home or self-care (01) ==
LOC: EC 13:43
DX: S81.802A Unspecified open wound, left lower leg, initial encounter (principal); I10 Essential (primary) hypertension; E11.9 Type 2 diabetes mellitus without complications; Z87.891 Personal history of nicotine dependence; K21.9 Gastro-esophageal reflux disease without esophagitis; Z79.83 Long term (current) use of bisphosphonates; Z91.040 Latex allergy status; Z88.1 Allergy status to other antibiotic agents; Z88.0 Allergy status to penicillin; Z88.2 Allergy status to sulfonamides; X58.XXXA Exposure to other specified factors, initial encounter
CPT/HCPCS: 36415; 80053; 83605; 85025; 99283; 96374; 96375; J2060; J1885; J1170

== ENCOUNTER → 2021-09-30 | Day surgery (SDC) | payer MEDICARE ==
[~2021-09-30] MED LIST changes: +ALPRAZolam 0.5 MG TAB PO PRN; +INSULIN ASPART (NovoLOG) 100 UNIT/ML VIAL SQ SCH; +SODIUM CHLORIDE 0.9% 1,000 ML IV ONE
[2021-09-30 11:14] VITALS: BP 144/79; RESP 16; TEMP 98.1
[2021-09-30 11:18] LABS: Glucose,Whole Blood 289 mg/dL (70-110)
== END ==
LOC: CATHCVL 10:36
PROVIDERS: ATTEND Surgery
DX: I70.245 Atherosclerosis of native arteries of left leg with ulceration of other part of foot (principal); Z53.8 Procedure and treatment not carried out for other reasons; Z79.4 Long term (current) use of insulin; Z79.899 Other long term (current) drug therapy; Z79.82 Long term (current) use of aspirin; Z88.2 Allergy status to sulfonamides; Z88.0 Allergy status to penicillin; Z90.49 Acquired absence of other specified parts of digestive tract; Z90.710 Acquired absence of both cervix and uterus; Z80.9 Family history of malignant neoplasm, unspecified; Z83.3 Family history of diabetes mellitus

== ENCOUNTER 2021-10-07 11:07 | Observation (INO) | payer MEDICARE ==
[2021-10-06 13:42] VITALS: BMI 32.8
[~2021-10-07 11:07] MED LIST changes: -ALPRAZolam 0.25 MG TAB PO PRN; -ALPRAZolam 0.5 MG TAB PO PRN; -INSULIN ASPART (NovoLOG) 100 UNIT/ML VIAL SQ SCH; +LIDOCAINE 1% (10MG/ML) FOR IV START INTRADERMA PRN; -SODIUM CHLORIDE 0.9% 1,000 ML IV ONE
[2021-10-07 11:44] LABS: Glucose,Whole Blood 407 mg/dL (70-110)
[2021-10-07 11:54] LABS: Basophils % (A) 0 %; Eosinophils # (A) 0.2 k/uL (0-0.7); Eosinophils % (A) 1 %; HCT 25.9 % (34.0-46.0); HGB 7.8 gm/dL (11.4-16.0); Hypochromasia Marked; Lymphocytes # (A) 1.3 k/uL (1.0-4.8); Lymphocytes % (A) 10 %; MCH 27.6 pg (25.0-35.0); Mean Platelet Volume 8.1; Monocytes # (A) 0.5 k/uL (0-1.0); Monocytes % (A) 4 %; Neutrophils # (A) 10.4 k/uL (1.3-7.7); Neutrophils % (A) 82 %; Platelet Count 674 k/uL (150-450); RBC 2.82 m/uL (3.80-5.40); WBC 12.6 k/uL (3.8-10.6)
[2021-10-07 12:03] LABS: Calcium 8.6 mg/dL (8.4-10.2); Potassium 5.5 mmol/L (3.5-5.1)
[2021-10-07] MEDS: INSULIN ASPART (NovoLOG) 100 UNIT/ML VIAL SQ SCH ×4 (12:25→20:50)
[2021-10-07] MEDS ORDERED: PHENYLEPHRINE-0.9% NACL SYG 1,000 MCG/10 ML SYRINGE ONE (12:40)
[2021-10-07] MEDS ORDERED: ePHEDrine 50 MG/ML 1 ML VIAL ONE (12:40)
[2021-10-07] MEDS ORDERED: PROPOFOL 10 MG/ML 20 ML VIAL IV ONE (12:40)
[2021-10-07] MEDS ORDERED: fentaNYL (PF) 50 MCG/ML 2 ML AMP ONE (12:40)
[2021-10-07] MEDS ORDERED: HEPARIN SODIUM,PORCINE 5,000 UNIT/ML 1 ML VIAL ONE (12:40)
[2021-10-07] MEDS ORDERED: LIDOCAINE 2% INJ 20 MG/ML (2 ML VIAL) ONE (12:40)
[2021-10-07] MEDS ORDERED: IOPAMIDOL-250 100ML BTL INTRAARTER ONE (14:35)
[2021-10-07] MEDS ORDERED: NALOXONE 0.4 MG/ML 1 ML VIAL IVP PRN (15:11)
--- NOTE | 2021-10-07 15:11 | P.OP ---
Date of Procedure: 10/07/21 Description of Procedure: Preoperative diagnosis: Critical limb ischemia, Alexey 5 peripheral arterial disease, nonhealing left lower extremity wound Postoperative diagnosis: Same Procedure: [#1 ultrasound guided right common femoral artery access #2 selective left lower extremity angiogram, third order to anterior tibial artery #3 left femoral and popliteal artery atherectomy with [place] M with distal embolic protection device #4 percutaneous transluminal balloon angioplasty, a drug-coated balloon 4 x 2 50, 5 x 200 left popliteal and superficial femoral artery #5 percutaneous right femoral artery closure with V[place]] Surgeon: Francoise Triana D.O. EBL: [Less than 10 mL] IV fluids: [See records] Urine output: [See records] Drains: [None] Complications: [None immediately apparent] Condition: [Stable to recovery] Operative indication and findings: [Patient is an 81-year-old female with left lower extremity calf wound heel wound and severe peripheral arterial disease with significant pain as low her wounds. Previous imaging had been performed revealing significant superficial femoral artery disease as well as the popliteal disease and one-vessel runoff via the anterior tibial artery. Long discussion was had regarding limb salvage and overall comorbidities, she Decided to go forth with endovascular intervention utilizing anesthesia due to her inadequate tolerance of sedation previously. Risks and benefits were discussed. She seemingly understood and was willing to proceed] Procedure in detail: [Patient was taken to the special suite and placed in supine position. She was initiated on general anesthesia via endotracheal tube. The bilateral groins are prepped and draped in usual sterile fashion. A preprocedure timeout was performed, all parties were in agreement. Using ultrasound, the right common femoral artery was identified. A micro-access needle was used and cannulation was performed with direct visualization. Seldinger technique was used to place a 6-[place] sheath. Catheters and wires were used to access the left iliac system. A left lower extremity angiogram was performed reconfirming significant superficial femoral artery disease as well as areas of short segment occlusion. One-vessel runoff via the anterior tibial artery was identified. At this point the decision was made to place an [place] [employer] [place] 6-[place] sheath. Catheters and wires were then used to cross the lesions. Confirmatory imaging was performed after crossing into the popliteal artery with luminal gain. The wire and catheter were then advanced to the level of the anterior tibial artery again with reconfirmation of luminal gain into the anterior tibial artery. At that point a distal embolic 5-[place]ian device was placed through the delivery catheter. Hawk M atherectomy was performed throughout the superficial femoral artery with sequential imaging taken. Once adequate atherectomy was performed, 4 x 2 50 and 5 x 200 or coded balloons were applied into the popliteal and superficial femoral artery. Repeat images performed showing significant improvement however it appeared that the distal embolic protection device was occlusive. It was removed as well as the entirety of the catheter. Aspiration of the sheath was performed and there was a significant burden of potential thromboembolic particulate noted. Repeat imaging was then performed showing again significant improvement through the superficial femoral artery with brisk clearing of contrast. This is reconfirmed the level of the popliteal anterior tibial arteries as well. The sheath was pulled back to the level of the proximal common iliac artery and an iliofemoral angiogram was performed showing no evidence of significant stenosis. The catheter was then removed wire was left in place, a short 6-[place] sheath was placed. Through this a vascde closure device was delivered in usual fashion with appropriate hemostasis and adequate femoral pulse upon conclusion.]
[2021-10-07] MEDS: HYDROmorphone 0.5 MG/0.5 ML SYRINGE IVP PRN ×2 (15:12→15:21)
[2021-10-07 15:43] LABS: Glucose,Whole Blood 248 mg/dL (70-110)
[2021-10-07] MEDS ORDERED: INSULIN ASPART (NovoLOG) 100 UNIT/ML VIAL SQ ONE (16:01)
--- NOTE | 2021-10-07 16:04 | IR ---
EXAMINATION TYPE: IR fire captain marine femoral popliteal DATE OF EXAM: 10/07/2021 COMPARISON: NONE HISTORY: Fluoroscopy time. Fluoroscopy was provided to the referring clinician.
[2021-10-07] MEDS: LACTATED RINGERS 1,000 ML IV SCH ×2 (16:10→17:11)
[2021-10-07 17:13] LABS: Glucose,Whole Blood 203 mg/dL (70-110)
--- NOTE | 2021-10-07 17:34 | P.CONS ---
History of Present Illness - Reason for Consult Consult date: 10/07/21 Medical management - Chief Complaint Presented to the hospital for left lower extremity angiography - History of Present Illness Patient is a 80-year-old female with a past medical history of hypertension, diabetes mellitus, CK D stage III, peripheral artery disease who presented for an angiography for critical limb ischemia in the left lower extremity with nonhealing wound. Patient seen after his surgery. She is currently a bit somnolent but is easily arousable and answering questions appropriately. Patient currently denying any acute complaints. Patient states that her surgery was scheduled by Dr. Triana and she came in as a direct admit. Review of Systems 10 ROS reviewed and are negative except as noted in HPI Past Medical History Past Medical History: Diabetes Mellitus, GERD/Reflux, Hypertension, Osteoarthritis (OA), Skin Disorder, Syncope, Vascular Disorder Additional Past Medical History / Comment(s): Arthritis in lower back. Poor circulation in legs, wound left lower leg calf area w/ pain, neuropathy in feet, [facility] to [facility]. Edema BLE, wears TEDS on right leg. SOB ON EXERTION History of Any Multi-Drug Resistant Organisms: None Reported Past Surgical History: Appendectomy, Breast Surgery, Ear Surgery, Heart Catheterization, Heart Catheterization With Stent, Hysterectomy Additional Past Surgical History / Comment(s): Varicose vein stripping left leg. Left ear myringotomy/tubes. colonoscopy. Left breast biopsy. Bilateral cataracts. Left leg wound debridement. Past Anesthesia/Blood Transfusion Reactions: No Reported Reaction Date of Last Stent Placement:: 11/26 Past Psychological History: No Psychological Hx Reported Additional Psychological History / Comment(s): Pt resides with her spouse. She states she has no home care. She uses a walker to ambulate. Her spouse drives. Smoking Status: Former smoker Past Alcohol Use History: Rare Additional Past Alcohol Use History / Comment(s): STARTED SMOKING AT AGE 14, SMOKED 2PPD, QUIT IN I991. Past Drug Use History: None Reported - Past Family History Father Family Medical History: Cancer Additional Family Medical History / Comment(s): COLON CANCER. Mother Family Medical History: Diabetes Mellitus, Renal Disease Additional Family Medical History / Comment(s): RENAL FAILURE. Brother(s) Family Medical History: Cancer Additional Family Medical History / Comment(s): 3 brothers - 2 had stomach cancer, 1 had esophageal cancer. Medications and Allergies Home Medications Medication Instructions Recorded Confirmed Type Aspirin EC [Ecotrin Low Dose] 81 mg PO DAILY 05/08/18 10/07/21 History Pantoprazole Sodium 40 mg PO QAM 05/08/18 10/07/21 History Cholecalciferol [Vitamin D3 (25 50 mcg PO DAILY 06/08/19 10/07/21 History Mcg = 1000 Iu)] Famotidine [Pepcid] 20 mg PO HS 06/08/19 10/07/21 History Ferrous Sulfate [Iron (65 MG 325 mg PO DAILY 06/08/19 10/07/21 History Elemental)] Acetaminophen [Tylenol Extra 1,000 mg PO Q6H PRN 03/30/21 10/06/21 History Strength] Ascorbic Acid [Vitamin C] 1,000 mg PO DAILY 03/30/21 10/07/21 History Fluticasone Nasal [place] [Flonase 1 spr EA NOSTRIL DAILY PRN 06/17/21 10/07/21 History Nasal [place]] Apixaban [Eliquis] 2.5 mg PO BID #60 tablet 06/30/21 10/07/21 Rx Atorvastatin [Lipitor] 80 mg PO HS #90 tab 06/30/21 10/07/21 Rx Furosemide [Lasix] 60 mg PO BID@0900,1500 08/11/21 10/07/21 History hydroCHLOROthiazide 25 mg PO QAM 08/11/21 10/07/21 History Insulin Aspart [NovoLOG Flexpen] See Protocol SQ AC-TID 08/28/21 10/07/21 History Insulin Glargine,Hum.rec.anlog 18 units SQ HS 08/28/21 10/07/21 History [Lantus Solostar Pen] L.acidoph,Paracasei, B.lactis 1 cap PO DAILY 09/29/21 10/07/21 History [Probiotic] Losartan [Cozaar] 75 mg PO QAM 09/29/21 10/07/21 History Pregabalin [Lyrica] 75 mg PO BID 09/29/21 10/07/21 History carvediloL 12.5 mg PO BID 09/29/21 10/07/21 History Allergies Allergy/AdvReac Type Severity Reaction Status Date / Time bacitracin Allergy Unknown Verified 10/07/21 11:28 [From Neosporin ([id number])] bacitracin zinc Allergy Unknown Verified 10/07/21 11:28 [From Neosporin ([id number])] latex Allergy Rash/Hives Verified 10/07/21 11:28 neomycin sulfate Allergy Unknown Verified 10/07/21 11:28 [From Neosporin ([id number])] Penicillins Allergy Rash & Verified 10/07/21 11:28 Fatigue polymyxin B Allergy Unknown Verified 10/07/21 11:28 [From Neosporin ([id number])] Sulfa (Sulfonamide Allergy Rash & Verified 10/07/21 11:28 Antibiotics) Fatigue Physical Exam Osteopathic Statement: *. No significant issues noted on an osteopathic structural exam other than those noted in the History and Physical/Consult. Vitals: Vital Signs Temp Pulse Pulse Pulse Resp BP BP 10/07/21 16:35 72 150/73 10/07/21 16:20 80 16 144/76 10/07/21 15:43 70 16 146/57 10/07/21 15:27 68 16 156/65 10/07/21 15:12 71 18 144/63 10/07/21 14:57 72 18 145/63 10/07/21 11:44 97.8 F 79 18 97/55 Pulse Ox 10/07/21 16:35 99 10/07/21 16:20 99 10/07/21 15:43 99 10/07/21 15:27 100 10/07/21 15:12 100 10/07/21 14:57 100 10/07/21 11:44 100 Intake and Output 10/07/21 10/07/21 10/07/21 06:59 14:59 22:59 Intake Total 1000 25 Output Total 125 Balance 875 25 Intake: IV 1000 25 Output: Urine 125 Other: Weight 78.925 kg General: [Alert and oriented, well nourished, no acute distress]. Eye: [PERRL, EOMI, normal conjunctiva]. HENT: [Normocephalic, clear tympanic membranes, normal hearing, moist oral mucosa, no scleral icterus, no sinus tenderness]. Neck: [Supple, non-tender, no carotid bruits, no JVD, no lymphadenopathy]. Lungs: [Clear to auscultation and percussion, non-labored respiration]. Heart: [Normal rate, regular rhythm, no murmur, gallop or edema]. Abdomen: [Soft, non-tender, non-distended, normal bowel sounds, no masses]. Musculoskeletal: [Normal range of motion and strength, no tenderness or swelling]. Skin: [Skin is warm, dry and pink, no rashes or lesions, left lower extremity bandages intact and dry]. Neurologic: [Awake, alert, and oriented X3, CN II-XII intact]. Psychiatric: [Cooperative, appropriate mood and affect], somnolent. Results CBC & Chem 7: 10/07/21 11:35 10/07/21 11:35 Labs: Abnormal Lab Results - Last 24 Hours (Table) 10/07/21 10/07/21 10/07/21 Range/Units 11:35 11:35 11:40 WBC 12.6 H (3.8-10.6) k/uL RBC 2.82 L (3.80-5.40) m/uL Hgb 7.8 L (11.4-16.0) gm/dL Hct 25.9 L (34.0-46.0) % MCHC 30.0 L (31.0-37.0) g/dL Plt Count 674 H (150-450) k/uL Neutrophils # 10.4 H (1.3-7.7) k/uL Sodium 134 L (137-145) mmol/L Potassium 5.5 H (3.5-5.1) mmol/L Carbon Dioxide 16 L (22-30) mmol/L BUN 31 H (7-17) mg/dL Creatinine 1.51 H (0.52-1.04) mg/dL Glucose 375 H (74-99) mg/dL POC Glucose (mg/dL) 407 H (70-110) mg/dL 10/07/21 10/07/21 Range/Units 15:40 17:12 WBC (3.8-10.6) k/uL RBC (3.80-5.40) m/uL Hgb (11.4-16.0) gm/dL Hct (34.0-46.0) % MCHC (31.0-37.0) g/dL Plt Count (150-450) k/uL Neutrophils # (1.3-7.7) k/uL Sodium (137-145) mmol/L Potassium (3.5-5.1) mmol/L Carbon Dioxide (22-30) mmol/L BUN (7-17) mg/dL Creatinine (0.52-1.04) mg/dL Glucose (74-99) mg/dL POC Glucose (mg/dL) 248 H 203 H (70-110) mg/dL Assessment and Plan Assessment: Peripheral arterial disease -Status post left lower extremity angiogram with balloon angioplasty in the left popliteal and superficial femoral artery -Your surgery management -Resume aspirin and statin and Plavix -Please resume Eliquis when cleared CK D stage III -Patient's creatinine baseline is around 1.4. Patient currently at her baseline -Hold Lasix and hydrochlorothiazide to avoid further nephrotoxicity since patient received contrast with angiography. I recommend to discontinue hydrochlorothiazide on discharge -Patient received fluid bolus after surgery to protect kidneys from contrast- induced nephropathy -Trend BMP Anemia -Hemoglobin baseline is around 9 -Hemoglobin is 7.8 -Continue to trend CBC -Patient denies any overt signs of bleeding Hypertension -Resume Coreg and losartan Diabetes mellitus -Sliding-scale insulin -We'll on half her dose of long-acting insulin as she appears somnolent and likely will not eat much for dinner. DVT prophylaxis: Will defer to primary team
[2021-10-07] MEDS ORDERED: ONDANSETRON 4 MG/2 ML VIAL IVP PRN (18:04)
[2021-10-07] MEDS: ATORVASTATIN 40 MG TAB PO SCH (20:37)
[2021-10-07] MEDS: carvediloL 12.5 MG TAB PO SCH (20:37)
[2021-10-07] MEDS: PREGABALIN 75 MG CAP PO SCH (20:37)
[2021-10-07] MEDS: FAMOTIDINE 20 MG TAB PO SCH (20:37)
[2021-10-07 20:42] LABS: Glucose,Whole Blood 203 mg/dL (70-110)
[2021-10-07] MEDS ORDERED: INSULIN DETEMIR (LEVEMIR) 100 UNIT/ML SYR SQ SCH ×2 (21:00)
[2021-10-07] MEDS: MORPHINE SULFATE 2 MG/ML SYRINGE IVP PRN (22:37)
[2021-10-08] MEDS: MORPHINE SULFATE 2 MG/ML SYRINGE IVP PRN (03:52)
[2021-10-08 07:33] LABS: Glucose,Whole Blood 424 mg/dL (70-110)
[2021-10-08] MEDS: INSULIN ASPART (NovoLOG) 100 UNIT/ML VIAL SQ SCH ×6 (08:39→22:42)
[2021-10-08] MEDS: PREGABALIN 75 MG CAP PO SCH ×2 (08:39→22:42)
[2021-10-08] MEDS: carvediloL 12.5 MG TAB PO SCH ×3 (08:40→22:41)
[2021-10-08] MEDS: LOSARTAN 25 MG TAB PO SCH ×2 (08:40→16:47)
[2021-10-08] MEDS ORDERED: INSULIN ASPART (NovoLOG) 100 UNIT/ML VIAL SQ ONE (08:50)
[2021-10-08] MEDS ORDERED: ASPIRIN 81 MG PO SCH (09:00)
[2021-10-08] MEDS ORDERED: CHOLECALCIFEROL 25 MCG (1000 IU) TABLET PO SCH (09:00)
[2021-10-08] MEDS ORDERED: FERROUS SULFATE 325 MG TAB PO SCH (09:00)
[2021-10-08] MEDS ORDERED: CLOPIDOGREL 75 MG TAB PO SCH (09:00)
[2021-10-08 09:11] LABS: African American GFR (CKD) 40.5 (60.0-200.0); Anion Gap 12.2 mmol/L (10.00-18.00); BUN/Creat Ratio 18.57 Ratio (12.00-20.00); Calcium 8.4 mg/dL (8.7-10.3); Carbon Dioxide 18.8 mmol/L (20.0-27.5); Non-African American GFR(CKD) 34.9 (60.0-200.0); Potassium 5.2 mmol/L (3.5-5.5)
[2021-10-08 09:41] LABS: HCT 22.6 % (37.2-46.3); HGB 6.7 g/dL (12.0-15.0); MCH 26.2 pg (27.0-32.0); MCHC 29.6 g/dL (32.0-37.0); MCV 88.3 fL (80.0-97.0); Mean Platelet Volume 10.7 fL (9.5-12.2); NRBC Per 100 WBC 0 /100 WBCS (0.0-0.0); Platelet Count 567 X 10*3/uL (140-440); RBC 2.56 X 10*6/uL (4.10-5.20); RDW 15.4 % (11.5-14.5); WBC 11.25 X 10*3/uL (4.50-10.00)
--- NOTE | 2021-10-08 10:04 | P.DS ---
Providers Date of admission: 10/08/21 07:27 Expected date of discharge: 10/08/21 Attending physician: Francoise Triana DO Consults: 10/07/21 15:11 Consult Physician Routine Consulting Provider: Anjelica Jaramillo Consult Reason/Comments: med mgmnt Do you want consulting provider notified?: Yes Primary care physician: Mark Bhandari MD Hospital Course: This is a pleasant 81-year-old female with chronic wounds of the lower extremities, arthrosclerosis of bilateral lower extremities, type 2 diabetes mellitus with neuropathy, carotid stenosis and essential hypertension who pre sented for scheduled outpatient revascularization. She is postop day #1 for left lower extremity angiogram with left femoral and popliteal artery atherectomy with DISTAL EMBOLIC PROTECTION DEVICE, PERCUTANEOUS TRANSLUMINAL BALLOON ANGIOPLASTY OF THE LEFT POPLITEAL AND SUPERFICIAL FEMORAL ARTERY. No acute changes through the night. She was experiencing some pain which was to be expected, she was given morphine with improvement. She denies any pain this morning. She is up in the chair. She still has a Triana catheter but that will be discontinued this morning. She is tolerating her breakfast. She denies any shortness of breath, chest pain, abdominal pain, nausea vomiting and is afebrile. Patient hemoglobin came back this morning at 6.7, she will get 1 unit of PRBC transfusion. If repeat hemoglobin stable will be able to be discharged this evening. Exam: General appearance: The patient is alert, oriented, appears in no acute distress. HET: Head is normocephalic and atraumatic. Pupils are equal and reactive. Neck: Supple without lymphadenopathy. Trachea midline. No audible carotid bruit. Heart: S1 S2. Regular rate and rhythm. Lungs: Clear to auscultation bilaterally. Abdomen: Soft, nontender, nondistended. Extremities: Bilateral lower extremities with dressings intact. Palpable bilateral femoral pulses. Good capillary refill. Right groin site without any bleeding, no hematoma or ecchymosis. DP Doppler signal present. Neurological: No focal deficits. Alert and oriented 3. The impression and plan of care has been dictated as directed. Dr. Triana I performed a history and examination of this patient, discussed the same with the dictator. I agree with the dictator's note ,documented as a scribe. Any additional findings or plans will be noted. Procedures: #1 ultrasound guided right common femoral artery access #2 selective left lower extremity angiogram, third order to anterior tibial artery #3 left femoral and popliteal artery atherectomy with [place] M with distal embolic protection device #4 percutaneous transluminal balloon angioplasty, a drug-coated balloon 4 x 2 50, 5 x 200 left popliteal and superficial femoral artery #5 percutaneous right femoral artery closure with [place]] Patient Condition at Discharge: Stable Plan - Discharge Summary Discharge Rx Participant: No New Discharge Prescriptions: New Clopidogrel [Plavix] 75 mg PO DAILY #90 tab Continue Pantoprazole Sodium 40 mg PO QAM Famotidine [Pepcid] 20 mg PO HS Ferrous Sulfate [Iron (65 MG Elemental)] 325 mg PO DAILY Cholecalciferol [Vitamin D3 (25 Mcg = 1000 Iu)] 50 mcg PO DAILY Fluticasone Nasal [place] [Flonase Nasal [place]] 1 spr EA NOSTRIL DAILY PRN PRN Reason: Allergy Symptoms Apixaban [Eliquis] 2.5 mg PO BID #60 tablet Furosemide [Lasix] 60 mg PO BID@0900,1500 hydroCHLOROthiazide 25 mg PO QAM Insulin Glargine,Hum.rec.anlog [Lantus Solostar Pen] 18 units SQ HS Pregabalin [Lyrica] 75 mg PO BID carvediloL 12.5 mg PO BID Ascorbic Acid [Vitamin C] 1,000 mg PO DAILY Acetaminophen [Tylenol Extra Strength] 1,000 mg PO Q6H PRN PRN Reason: Pain Insulin Aspart [NovoLOG Flexpen] See Protocol SQ AC-TID Losartan [Cozaar] 75 mg PO QAM L.acidoph,Paracasei, B.lactis [Probiotic] 1 cap PO DAILY Atorvastatin [Lipitor] 80 mg PO HS #90 tab Discontinued Aspirin EC [Ecotrin Low Dose] 81 mg PO DAILY Discharge Medication List Pantoprazole Sodium 40 mg PO QAM 05/08/18 [History] Cholecalciferol [Vitamin D3 (25 Mcg = 1000 Iu)] 50 mcg PO DAILY 06/08/19 [History] Famotidine [Pepcid] 20 mg PO HS 06/08/19 [History] Ferrous Sulfate [Iron (65 MG Elemental)] 325 mg PO DAILY 06/08/19 [History] Acetaminophen [Tylenol Extra Strength] 1,000 mg PO Q6H PRN 03/30/21 [History] Ascorbic Acid [Vitamin C] 1,000 mg PO DAILY 03/30/21 [History] Fluticasone Nasal [place] [Flonase Nasal [place]] 1 spr EA NOSTRIL DAILY PRN 06/17/21 [History] Apixaban [Eliquis] 2.5 mg PO BID #60 tablet 06/30/21 [Rx] Furosemide [Lasix] 60 mg PO BID@0900,1500 08/11/21 [History] hydroCHLOROthiazide 25 mg PO QAM 08/11/21 [History] Insulin Aspart [NovoLOG Flexpen] See Protocol SQ AC-TID 08/28/21 [History] Insulin Glargine,Hum.rec.anlog [Lantus Solostar Pen] 18 units SQ HS 08/28/21 [History] L.acidoph,Paracasei, B.lactis [Probiotic] 1 cap PO DAILY 09/29/21 [History] Losartan [Cozaar] 75 mg PO QAM 09/29/21 [History] Pregabalin [Lyrica] 75 mg PO BID 09/29/21 [History] carvediloL 12.5 mg PO BID 09/29/21 [History] Atorvastatin [Lipitor] 80 mg PO HS #90 tab 10/08/21 [Rx] Clopidogrel [Plavix] 75 mg PO DAILY #90 tab 10/08/21 [Rx] Follow up Appointment(s)/Referral(s): Mark Bhandari MD [Primary Care Provider] - 1 Week Francoise Triana DO [STAFF PHYSICIAN] - 1 Week Activity/Diet/Wound Care/Special Instructions: No driving for two days. Avoid heavy lifting greater than 10 lbs , pushing, pulling, straining, flights of stairs for three days. ok to shower tomorrow but no baths, pools, soaking in tubs for three days to avoid risk of infection. signs of infection ie: fever, rash, drainage from puncture site, swelling contact doctor or return to ER immediately. Heavy bleeding from puncture site apply firm direct pressure and return to ER. Do not attempt to drive self. low sodium/low fat diet Discharge Disposition: HOME SELF-CARE
[2021-10-08 12:27] LABS: Glucose,Whole Blood 211 mg/dL (70-110)
[2021-10-08 14:42] LABS: % Iron Saturation 3.18 (12.00-45.00)
--- NOTE | 2021-10-08 15:10 | P.PN ---
Subjective Progress Note Date: 10/08/21 Patient this morning sitting in the chair. She denies any acute complaints. She denies any overt signs of bleeding. Patient's hemoglobin this morning was 6.7. I ordered for 1 unit of PRBC. I told nurse to obtain a stool occult. Objective - Vital Signs Vital signs: Vital Signs Temp 98.4 F 10/08/21 13:53 Pulse 83 10/08/21 14:23 Resp 16 10/08/21 07:30 BP 113/63 10/08/21 14:23 Pulse Ox 95 10/08/21 13:43 FiO2 Intake & Output 10/07/21 10/08/21 10/08/21 18:59 06:59 18:59 Intake Total 1025 250 0 Output Total 405 425 100 Balance 620 -175 -100 Weight 78.925 kg 79.2 kg Intake: IV 1025 Oral 250 Blood Product 0 Unit 0 Output: Urine 405 425 100 Uretheral (Triana) 100 Other: Voiding Method Indwelling Catheter Indwelling Catheter # Voids 1 - Labs CBC & Chem 7: 10/08/21 05:09 10/08/21 05:09 Labs: Abnormal Lab Results - Last 24 Hours (Table) 10/07/21 10/07/21 10/07/21 Range/Units 15:40 17:12 20:40 WBC (4.50-10.00) X 10*3/uL RBC (4.10-5.20) X 10*6/uL Hgb (12.0-15.0) g/dL Hct (37.2-46.3) % MCH (27.0-32.0) pg MCHC (32.0-37.0) g/dL RDW (11.5-14.5) % Plt Count (140-440) X 10*3/uL Sodium (135-145) mmol/L Carbon Dioxide (20.0-27.5) mmol/L Est GFR (CKD-EPI)AfAm (60.0-200.0) Est GFR (CKD-EPI)NonAf (60.0-200.0) Glucose (70-110) mg/dL POC Glucose (mg/dL) 248 H 203 H 203 H (70-110) mg/dL Calcium (8.7-10.3) mg/dL Iron (50-170) ug/dL % Saturation (12.00-45.00) Crossmatch 10/08/21 10/08/21 10/08/21 Range/Units 05:09 05:09 05:09 WBC 11.25 H (4.50-10.00) X 10*3/uL RBC 2.56 L (4.10-5.20) X 10*6/uL Hgb 6.7 L* (12.0-15.0) g/dL Hct 22.6 L (37.2-46.3) % MCH 26.2 L (27.0-32.0) pg MCHC 29.6 L (32.0-37.0) g/dL RDW 15.4 H (11.5-14.5) % Plt Count 567 H (140-440) X 10*3/uL Sodium 130 L (135-145) mmol/L Carbon Dioxide 18.8 L (20.0-27.5) mmol/L Est GFR (CKD-EPI)AfAm 40.5 L (60.0-200.0) Est GFR (CKD-EPI)NonAf 34.9 L (60.0-200.0) Glucose 224 H (70-110) mg/dL POC Glucose (mg/dL) (70-110) mg/dL Calcium 8.4 L (8.7-10.3) mg/dL Iron 10 L (50-170) ug/dL % Saturation 3.18 L (12.00-45.00) Crossmatch 10/08/21 10/08/21 10/08/21 Range/Units 07:32 10:05 12:25 WBC (4.50-10.00) X 10*3/uL RBC (4.10-5.20) X 10*6/uL Hgb (12.0-15.0) g/dL Hct (37.2-46.3) % MCH (27.0-32.0) pg MCHC (32.0-37.0) g/dL RDW (11.5-14.5) % Plt Count (140-440) X 10*3/uL Sodium (135-145) mmol/L Carbon Dioxide (20.0-27.5) mmol/L Est GFR (CKD-EPI)AfAm (60.0-200.0) Est GFR (CKD-EPI)NonAf (60.0-200.0) Glucose (70-110) mg/dL POC Glucose (mg/dL) 424 H 211 H (70-110) mg/dL Calcium (8.7-10.3) mg/dL Iron (50-170) ug/dL % Saturation (12.00-45.00) Crossmatch See Detail Assessment and Plan Assessment: Peripheral arterial disease -Status post left lower extremity angiogram with balloon angioplasty in the left popliteal and superficial femoral artery -Your surgery management -Defer aspirin and Plavix to primary team in the setting of iron deficiency anemia -Please resume Eliquis when cleared CK D stage III -Creatinine at baseline Chronic systolic heart failure -Holding and diuretics to prevent contrast-induced nephropathy -Monitor volume status closely Severe iron deficiency anemia Possible acute blood loss anemia from surgery versus occult GI blood loss -Hemoglobin baseline is around 9 -Hemoglobin is 7.8 on admission -Post op patient Hgb is 6.7 -Continue to trend CBC -Patient denies any overt signs of bleeding -I discussed with the patient that she will need a colonoscopy in the near future and to discuss with her PCP. -To consider Gen. surgery consult for colonoscopy while patient is inpatient and hemoglobin continues to drop or does not respond appropriately to blood transfusion Hypertension -Resume Coreg and losartan Diabetes mellitus -Sliding-scale insulin -We'll on half her dose of long-acting insulin as she appears somnolent and likely will not eat much for dinner. Paroxysmal atrial fibrillation -Okay to hold Eliquis due to anemia -Heart rate controlled DVT prophylaxis: Will defer to primary team
[2021-10-08] MEDS: LACTATED RINGERS 1,000 ML IV SCH (16:47)
[2021-10-08] MEDS ORDERED: ACETAMINOPHEN TAB 325 MG TAB PO PRN (16:53)
[2021-10-08 17:12] LABS: Glucose,Whole Blood 316 mg/dL (70-110)
[2021-10-08 19:18] LABS: Basophils % (A) 0 %; Eosinophils # (A) 0.1 k/uL (0-0.7); Eosinophils % (A) 0 %; HCT 25.4 % (34.0-46.0); HGB 7.8 gm/dL (11.4-16.0); Hypochromasia Marked; Lymphocytes # (A) 1.2 k/uL (1.0-4.8); Lymphocytes % (A) 11 %; MCH 27.6 pg (25.0-35.0); MCHC 30.7 g/dL (31.0-37.0); MCV 89.9 fL (80.0-100.0); Mean Platelet Volume 8.1; Monocytes # (A) 0.6 k/uL (0-1.0); Monocytes % (A) 5 %; Neutrophils % (A) 82 %; Platelet Count 481 k/uL (150-450); RBC 2.82 m/uL (3.80-5.40); RDW 14.9 % (11.5-15.5); WBC 11.1 k/uL (3.8-10.6)
[2021-10-08] MEDS ORDERED: INSULIN DETEMIR (LEVEMIR) 100 UNIT/ML SYR SQ SCH (21:00)
[2021-10-08] MEDS: FAMOTIDINE 20 MG TAB PO SCH (22:41)
[2021-10-08] MEDS: ATORVASTATIN 40 MG TAB PO SCH (22:41)
[2021-10-08 22:58] VITALS: BP 126/45; PULSE 77; RESP 18; TEMP 99
== END 2021-10-08 21:52 | disposition home or self-care (01) ==
LOC: CATHCVL 11:07 → 6NMEDSUR 14:40 → CATHCVL 10-08 07:27
PROVIDERS: ADMIT Surgery; ATTEND Surgery
DX: E11.51 Type 2 diabetes mellitus with diabetic peripheral angiopathy without gangrene (principal); E11.40 Type 2 diabetes mellitus with diabetic neuropathy, unspecified; I65.29 Occlusion and stenosis of unspecified carotid artery; I13.0 Hypertensive heart and chronic kidney disease with heart failure and stage 1 through stage 4 chronic kidney disease, or unspecified chronic kidney disease; E11.22 Type 2 diabetes mellitus with diabetic chronic kidney disease; N18.30 Chronic kidney disease, stage 3 unspecified; K21.9 Gastro-esophageal reflux disease without esophagitis; I50.22 Chronic systolic (congestive) heart failure; M19.90 Unspecified osteoarthritis, unspecified site; Z87.891 Personal history of nicotine dependence; Z90.49 Acquired absence of other specified parts of digestive tract; Z90.710 Acquired absence of both cervix and uterus; Z98.42 Cataract extraction status, left eye; Z98.41 Cataract extraction status, right eye; Z98.890 Other specified postprocedural states; Z80.9 Family history of malignant neoplasm, unspecified; Z80.0 Family history of malignant neoplasm of digestive organs; Z83.3 Family history of diabetes mellitus; Z84.1 Family history of disorders of kidney and ureter; M47.816 Spondylosis without myelopathy or radiculopathy, lumbar region; Z95.5 Presence of coronary angioplasty implant and graft; Z79.84 Long term (current) use of oral hypoglycemic drugs; Z79.02 Long term (current) use of antithrombotics/antiplatelets; Z79.4 Long term (current) use of insulin; Z79.899 Other long term (current) drug therapy; Z79.01 Long term (current) use of anticoagulants; Z79.82 Long term (current) use of aspirin; Z88.0 Allergy status to penicillin; Z88.3 Allergy status to other anti-infective agents; Z88.2 Allergy status to sulfonamides
CPT/HCPCS: 37225; 75710; 86900; 86901; 80048 ×2; 83540; 83550; 85025 ×2; 85027; 86850; 86920; G0378; C1894 ×2; C1769 ×5; C1887; C1714; C1884; C2623 ×2; C1760; P9016; J1644; J2405; J3010; J2270 ×2; J2370; J2704; J1170; Q9966; J2001

== ENCOUNTER 2021-10-12 11:03 | Inpatient (IN) | payer MEDICARE ==
--- NOTE | 2021-10-12 11:24 | ED ---
General Adult HPI - General Chief complaint: Weakness Stated complaint: Weakness Time Seen by Provider: 10/12/21 11:10 Source: patient, EMS, RN notes reviewed, old records reviewed Mode of arrival: EMS Limitations: physical limitation - History of Present Illness Initial comments: 81-year-old female presents to the emergency room with complaints of weakness for one day. Patient states that she has chronic leg ulcers and had treatment with Dr. Triana on Tuesday. She has been taking care of her chronic leg ulcers since January. Denies any fevers, no nausea vomiting or diarrhea. Denies any difficulty breathing or chest pain. She states that she has been changing her dressings using saline and gauze daily. Last time she seen wound care was about 4 weeks ago. Patient states that the ulcers on her feet started about 2-3 weeks ago. Patient states that she lives at home with her . -: days(s) (1) Quality: constant Consistency: constant Improves with: immobilization Worsens with: movement Associated Symptoms: weakness - Related Data Home Medications Medication Instructions Recorded Confirmed Pantoprazole Sodium 40 mg PO DAILY 05/08/18 10/12/21 Famotidine [Pepcid] 20 mg PO HS 06/08/19 10/12/21 Ferrous Sulfate [Iron (65 MG 325 mg PO DAILY 06/08/19 10/12/21 Elemental)] Acetaminophen [Tylenol Extra 1,000 mg PO Q6H PRN 03/30/21 10/12/21 Strength] Ascorbic Acid [Vitamin C] 1,000 mg PO DAILY 03/30/21 10/12/21 Fluticasone Nasal [place] [Flonase 1 spr EA NOSTRIL DAILY PRN 06/17/21 10/12/21 Nasal [place]] Furosemide [Lasix] 60 mg PO BID@0900,1500 08/11/21 10/12/21 Insulin Aspart [NovoLOG Flexpen] See Protocol SQ AC-TID 08/28/21 10/12/21 Insulin Glargine,Hum.rec.anlog 18 units SQ HS 08/28/21 10/12/21 [Lantus Solostar Pen] L.acidoph,Paracasei, B.lactis 1 cap PO DAILY 09/29/21 10/12/21 [Probiotic] carvediloL 12.5 mg PO BID 09/29/21 10/12/21 Cholecalciferol [Vitamin D3 (25 50 mcg PO DAILY 10/12/21 10/12/21 Mcg = 1000 Iu)] Pregabalin [Lyrica] 100 mg PO BID 10/12/21 10/12/21 Previous Rx's Medication Instructions Recorded Apixaban [Eliquis] 2.5 mg PO BID #60 tablet 06/30/21 Atorvastatin [Lipitor] 80 mg PO HS #90 tab 10/08/21 Clopidogrel [Plavix] 75 mg PO DAILY #90 tab 10/08/21 Allergies Allergy/AdvReac Type Severity Reaction Status Date / Time bacitracin Allergy Unknown Verified 10/12/21 11:08 [From Neosporin ([id number])] bacitracin zinc Allergy Unknown Verified 10/12/21 11:08 [From Neosporin ([id number])] latex Allergy Rash/Hives Verified 10/12/21 11:08 neomycin sulfate Allergy Unknown Verified 10/12/21 11:08 [From Neosporin ([id number])] Penicillins Allergy Rash & Verified 10/12/21 11:08 Fatigue polymyxin B Allergy Unknown Verified 10/12/21 11:08 [From Neosporin ([id number])] Sulfa (Sulfonamide Allergy Rash & Verified 10/12/21 11:08 Antibiotics) Fatigue Review of Systems ROS Statement: Those systems with pertinent positive or pertinent negative responses have been documented in the HPI. ROS Other: All systems not noted in ROS Statement are negative. Past Medical History Past Medical History: Diabetes Mellitus, GERD/Reflux, Hypertension, Osteoarthritis (OA), Skin Disorder, Syncope, Vascular Disorder Additional Past Medical History / Comment(s): Arthritis in lower back. Poor ci rculation in legs, wound left lower leg calf area w/ pain, neuropathy in feet, goes to [facility]ound Center. Edema BLE, wears TEDS on right leg. SOB ON EXERTION History of Any Multi-Drug Resistant Organisms: None Reported Past Surgical History: Appendectomy, Breast Surgery, Ear Surgery, Heart Catheterization, Heart Catheterization With Stent, Hysterectomy Additional Past Surgical History / Comment(s): Varicose vein stripping left leg. Left ear myringotomy/tubes. colonoscopy. Left breast biopsy. Bilateral cataracts. Left leg wound debridement. Past Anesthesia/Blood Transfusion Reactions: No Reported Reaction Date of Last Stent Placement:: 11/26 Past Psychological History: No Psychological Hx Reported Smoking Status: Former smoker Past Alcohol Use History: Rare Past Drug Use History: None Reported - Past Family History Father Family Medical History: Cancer Additional Family Medical History / Comment(s): COLON CANCER. Mother Family Medical History: Diabetes Mellitus, Renal Disease Additional Family Medical History / Comment(s): RENAL FAILURE. Brother(s) Family Medical History: Cancer Additional Family Medical History / Comment(s): 3 brothers - 2 had stomach cancer, 1 had esophageal cancer. General Exam Limitations: physical limitation General appearance: alert, in no apparent distress Head exam: Present: atraumatic Eye exam: Present: normal appearance Respiratory exam: Absent: respiratory distress, accessory muscle use Cardiovascular Exam: Present: regular rate GI/Abdominal exam: Present: soft. Absent: distended, tenderness Right Foot/Toe exam: Present: erythema (Pressure ulcers to the calcaneus and heel) Neurovascular tendon exam: Absent: extremity cold to touch Left Lower Leg exam: Present: tenderness (Large ulcers to medial calf; medial ankle; great toe; heel) Back exam: Present: normal inspection. Absent: tenderness, CVA tenderness (R), CVA tenderness (L), rash noted Neurological exam: Present: alert, oriented X3 Psychiatric exam: Present: normal affect, normal mood Skin exam: Present: warm. Absent: cyanosis, diaphoretic Course Vital Signs 10/12/21 10/12/21 10/12/21 11:08 12:38 14:12 Temperature 99 F Pulse Rate 78 80 85 Respiratory 18 18 18 Rate Blood Pressure 160/57 173/64 156/72 O2 Sat by Pulse 98 100 96 Oximetry EKG Findings - EKG Results: EKG: sinus rhythm (Ventricular rate of 76, DE interval 0.151, QRS 0.81, QTC 0.397; normal axis) Medical Decision Making - Medical Decision Making Patient has history of diabetes, hypertension, vascular disease and cardiac disease. She did undergo left lower extremity procedure with Dr. Triana on October 08, left femoral and popliteal artery atherectomy. Leukocytosis noted with a left shift. Blood glucose was 541. CO2 14 Patient does have a history of anemia, hemoglobin stable today at 8.4. Persistent elevation in creatinine levels today 1.47 UA shows 46 white blood cells with rare bacteria. Given a gram of Rocephin. Chest x-ray shows no acute cardio pulmonary disease. X-ray of the left ankle and foot shows no evidence of fracture. There is diffuse osteopenia however no definitive evidence of osteomyelitis. Nurse states family at bedside did state that the patient has not been taking her medications as prescribed at home. This is likely the cause of her elevated and glucose levels and weakness in addition to her urinary tract infection. Patient will be admitted to the hospital for UTI, hypoglycemia, weakness and chronic leg wounds. Case discussed with Dr. Bartlett. - Lab Data Result diagrams: 10/12/21 11:33 10/12/21 11:33 Lab Results 10/12/21 10/12/21 10/12/21 Range/Units 11:33 11:33 11:33 WBC 16.3 H (3.8-10.6) k/uL RBC 3.09 L (3.80-5.40) m/uL Hgb 8.4 L (11.4-16.0) gm/dL Hct 28.0 L (34.0-46.0) % MCV 90.7 (80.0-100.0) fL MCH 27.3 (25.0-35.0) pg MCHC 30.1 L (31.0-37.0) g/dL RDW 15.1 (11.5-15.5) % Plt Count 543 H (150-450) k/uL MPV 8.3 Neutrophils % 88 % Lymphocytes % 5 % Monocytes % 5 % Eosinophils % 0 % Basophils % 0 % Neutrophils # 14.3 H (1.3-7.7) k/uL Lymphocytes # 0.9 L (1.0-4.8) k/uL Monocytes # 0.8 (0-1.0) k/uL Eosinophils # 0.1 (0-0.7) k/uL Basophils # 0.0 (0-0.2) k/uL Hypochromasia Marked PT (9.0-12.0) sec INR (<1.2) APTT (22.0-30.0) sec Sodium 130 L (137-145) mmol/L Potassium 5.5 H (3.5-5.1) mmol/L Chloride 101 (98-107) mmol/L Carbon Dioxide 14 L (22-30) mmol/L Anion Gap 15 mmol/L BUN 43 H (7-17) mg/dL Creatinine 1.47 H (0.52-1.04) mg/dL Est GFR (CKD-EPI)AfAm 38 (>60 ml/min/1.73 sqM) Est GFR (CKD-EPI)NonAf 33 (>60 ml/min/1.73 sqM) Glucose 541 H* (74-99) mg/dL Plasma Lactic Acid [place] 1.3 (0.7-2.0) mmol/L Calcium 8.5 (8.4-10.2) mg/dL Magnesium 2.1 (1.6-2.3) mg/dL Total Bilirubin 0.8 (0.2-1.3) mg/dL AST 20 (14-36) U/L ALT 14 (4-34) U/L Alkaline Phosphatase 141 H (38-126) U/L Troponin I (0.000-0.034) ng/mL Total Protein 6.4 (6.3-8.2) g/dL Albumin 3.2 L (3.5-5.0) g/dL Urine Color Urine Appearance (Clear) Urine pH (5.0-8.0) Ur Specific [place] (1.001-1.035) Urine Protein (Negative) Urine Glucose (UA) (Negative) Urine Ketones (Negative) Urine Blood (Negative) Urine Nitrite (Negative) Urine Bilirubin (Negative) Urine Urobilinogen (<2.0) mg/dL Ur Leukocyte Esterase (Negative) Urine RBC (0-5) /hpf Urine WBC (0-5) /hpf Urine WBC Clumps (None) /hpf Ur Squamous Epith Cells (0-4) /hpf Urine Bacteria (None) /hpf Urine Mucus (None) /hpf Acetone, Qual (Negative) 10/12/21 10/12/21 10/12/21 Range/Units 11:33 11:35 12:40 WBC (3.8-10.6) k/uL RBC (3.80-5.40) m/uL Hgb (11.4-16.0) gm/dL Hct (34.0-46.0) % MCV (80.0-100.0) fL MCH (25.0-35.0) pg MCHC (31.0-37.0) g/dL RDW (11.5-15.5) % Plt Count (150-450) k/uL MPV Neutrophils % % Lymphocytes % % Monocytes % % Eosinophils % % Basophils % % Neutrophils # (1.3-7.7) k/uL Lymphocytes # (1.0-4.8) k/uL Monocytes # (0-1.0) k/uL Eosinophils # (0-0.7) k/uL Basophils # (0-0.2) k/uL Hypochromasia PT 10.2 (9.0-12.0) sec INR 0.9 (<1.2) APTT 23.2 (22.0-30.0) sec Sodium (137-145) mmol/L Potassium (3.5-5.1) mmol/L Chloride (98-107) mmol/L Carbon Dioxide (22-30) mmol/L Anion Gap mmol/L BUN (7-17) mg/dL Creatinine (0.52-1.04) mg/dL Est GFR (CKD-EPI)AfAm (>60 ml/min/1.73 sqM) Est GFR (CKD-EPI)NonAf (>60 ml/min/1.73 sqM) Glucose (74-99) mg/dL Plasma Lactic Acid [place] (0.7-2.0) mmol/L Calcium (8.4-10.2) mg/dL Magnesium (1.6-2.3) mg/dL Total Bilirubin (0.2-1.3) mg/dL AST (14-36) U/L ALT (4-34) U/L Alkaline Phosphatase (38-126) U/L Troponin I <0.012 (0.000-0.034) ng/mL Total Protein (6.3-8.2) g/dL Albumin (3.5-5.0) g/dL Urine Color Yellow Urine Appearance Cloudy H (Clear) Urine pH 5.0 (5.0-8.0) Ur Specific [place] 1.020 (1.001-1.035) Urine Protein Trace H (Negative) Urine Glucose (UA) 4+ H (Negative) Urine Ketones Negative (Negative) Urine Blood Moderate H (Negative) Urine Nitrite Negative (Negative) Urine Bilirubin Negative (Negative) Urine Urobilinogen <2.0 (<2.0) mg/dL Ur Leukocyte Esterase Large H (Negative) Urine RBC 17 H (0-5) /hpf Urine WBC 46 H (0-5) /hpf Urine WBC Clumps Few H (None) /hpf Ur Squamous Epith Cells 5 H (0-4) /hpf Urine Bacteria Rare H (None) /hpf Urine Mucus Rare H (None) /hpf Acetone, Qual (Negative) 10/12/21 Range/Units 13:04 WBC (3.8-10.6) k/uL RBC (3.80-5.40) m/uL Hgb (11.4-16.0) gm/dL Hct (34.0-46.0) % MCV (80.0-100.0) fL MCH (25.0-35.0) pg MCHC (31.0-37.0) g/dL RDW (11.5-15.5) % Plt Count (150-450) k/uL MPV Neutrophils % % Lymphocytes % % Monocytes % % Eosinophils % % Basophils % % Neutrophils # (1.3-7.7) k/uL Lymphocytes # (1.0-4.8) k/uL Monocytes # (0-1.0) k/uL Eosinophils # (0-0.7) k/uL Basophils # (0-0.2) k/uL Hypochromasia PT (9.0-12.0) sec INR (<1.2) APTT (22.0-30.0) sec Sodium (137-145) mmol/L Potassium (3.5-5.1) mmol/L Chloride (98-107) mmol/L Carbon Dioxide (22-30) mmol/L Anion Gap mmol/L BUN (7-17) mg/dL Creatinine (0.52-1.04) mg/dL Est GFR (CKD-EPI)AfAm (>60 ml/min/1.73 sqM) Est GFR (CKD-EPI)NonAf (>60 ml/min/1.73 sqM) Glucose (74-99) mg/dL Plasma Lactic Acid [place] (0.7-2.0) mmol/L Calcium (8.4-10.2) mg/dL Magnesium (1.6-2.3) mg/dL Total Bilirubin (0.2-1.3) mg/dL AST (14-36) U/L ALT (4-34) U/L Alkaline Phosphatase (38-126) U/L Troponin I (0.000-0.034) ng/mL Total Protein (6.3-8.2) g/dL Albumin (3.5-5.0) g/dL Urine Color Urine Appearance (Clear) Urine pH (5.0-8.0) Ur Specific [place] (1.001-1.035) Urine Protein (Negative) Urine Glucose (UA) (Negative) Urine Ketones (Negative) Urine Blood (Negative) Urine Nitrite (Negative) Urine Bilirubin (Negative) Urine Urobilinogen (<2.0) mg/dL Ur Leukocyte Esterase (Negative) Urine RBC (0-5) /hpf Urine WBC (0-5) /hpf Urine WBC Clumps (None) /hpf Ur Squamous Epith Cells (0-4) /hpf Urine Bacteria (None) /hpf Urine Mucus (None) /hpf Acetone, Qual Negative (Negative) Disposition Clinical Impression: Hyperglycemia, UTI (urinary tract infection), Weakness, Leg wound, left, [employer] [place] ulcer of lower extremity Disposition: ADMITTED IP TO THIS HOSP Decision Date: 10/12/21 Decision Time: 13:34
[2021-10-12] MEDS ORDERED: MORPHINE SULFATE 4 MG/ML SYRINGE IVP STA (11:41)
[2021-10-12 11:47] LABS: Basophils % (A) 0 %; Eosinophils # (A) 0.1 k/uL (0-0.7); Eosinophils % (A) 0 %; HGB 8.4 gm/dL (11.4-16.0); Hypochromasia Marked; Lymphocytes # (A) 0.9 k/uL (1.0-4.8); Lymphocytes % (A) 5 %; MCH 27.3 pg (25.0-35.0); MCHC 30.1 g/dL (31.0-37.0); MCV 90.7 fL (80.0-100.0); Mean Platelet Volume 8.3; Monocytes # (A) 0.8 k/uL (0-1.0); Monocytes % (A) 5 %; Neutrophils # (A) 14.3 k/uL (1.3-7.7); Neutrophils % (A) 88 %; Platelet Count 543 k/uL (150-450); RBC 3.09 m/uL (3.80-5.40); RDW 15.1 % (11.5-15.5); WBC 16.3 k/uL (3.8-10.6)
[2021-10-12 11:58] LABS: Albumin 3.2 g/dL (3.5-5.0); Calcium 8.5 mg/dL (8.4-10.2); Magnesium 2.1 mg/dL (1.6-2.3); Potassium 5.5 mmol/L (3.5-5.1); Total Bilirubin 0.8 mg/dL (0.2-1.3); Total Protein 6.4 g/dL (6.3-8.2)
[2021-10-12 12:06] LABS: INR 0.9 (<1.2); Partial Thromboplastin Time 23.2 sec (22.0-30.0); Prothrombin Time 10.2 sec (9.0-12.0)
[2021-10-12] MEDS ORDERED: SODIUM CHLORIDE 0.9% 500 ML 500 ML IV ONE ×2 (12:35→12:43)
--- NOTE | 2021-10-12 12:42 | XR ---
EXAMINATION TYPE: XR ankle complete LT, XR foot complete LT DATE OF EXAM: 10/12/2021 12:16 PM INDICATION: Patient age:Female; 81 years old; Reason for study: r/o osteo; COMPARISON: Foot radiograph 06/27/2021 TECHNIQUE: The left ankle is imaged in frontal lateral and oblique projections. Frontal, lateral and oblique views of the left foot FINDINGS: There is diffuse osteopenia. No evidence of osseous erosion. Scattered skin calcifications are again seen. There is chronic wound again present involving the medial left leg. There is no evide nce of acute osseous pathology. The joint spaces are well-preserved without evidence of subluxation or dislocation. Kager's fat pad is intact. No radiopaque foreign bodies are identified. Soft tissue s welling throughout the foot most pronounced in the dorsal aspect. IMPRESSION: 1. No evidence of acute fracture. 2. Diffuse osteopenia without definitive evidence for osteomyelitis. 3. Chronic medial lower leg wound. 4. Soft tissue swelling throughout the foot most pronounced dorsally.
[2021-10-12] MEDS ORDERED: INSULIN REGULAR 100 UNIT/ML VIAL (IV) IV ONE ×2 (12:43→14:39)
--- NOTE | 2021-10-12 12:50 | XR ---
EXAMINATION TYPE: XR chest 2V DATE OF EXAM: 10/12/2021 12:16 PM COMPARISON: Chest radiographs from 07/18/2021 TECHNIQUE: XR chest 2V Frontal and lateral views of the chest. CLINICAL INDICATION:Female, 81 years old with history of Weakness; FINDINGS: Lungs/Pleura: There is no evidence of pleural effusion, focal consolidation, or pneumothorax. Pulmonary vascularity: Unremarkable. Heart/mediastinum: Cardiomediastinal silhouette is enlarged and stable. Musculoskeletal: No acute osseous pathology. IMPRESSION: No acute cardiopulmonary disease/process.
[2021-10-12 12:57] LABS: Appearance,Urine Cloudy (Clear); Bacteria,Urine Rare /hpf; Bilirubin,Urine Negative (Negative); Blood,Urine Moderate (Negative); Color,Urine Yellow; Glucose,Urine (UA) 4+ (Negative); Ketones,Urine Negative (Negative); Leukocyte Esterase,Urine Large (Negative); Mucus,Urine Rare /hpf; Nitrite,Urine Negative (Negative); Protein,Urine Trace (Negative); RBC,Urine 17 /hpf (0-5); Squamous Epithelial Cell,Urine 5 /hpf (0-4); Urobilinogen,Urine <2.0 mg/dL (<2.0); WBC,Urine 46 /hpf (0-5)
[2021-10-12] MEDS ORDERED: cefTRIAXone IN SWFI 1,000 MG/10 ML SYRINGE IVP STA (13:06)
[2021-10-12] MEDS ORDERED: NALOXONE 0.4 MG/ML 1 ML VIAL IV PRN ×2 (13:52→14:16)
[2021-10-12] MEDS ORDERED: FLUTICASONE 50MCG/SPRAY NASAL 16GM EA NOSTRIL PRN (13:54)
[2021-10-12 14:13] LABS: Glucose,Whole Blood 402 mg/dL (70-110)
[2021-10-12] MEDS ORDERED: MELATONIN 3 MG TABLET PO PRN (14:16)
[2021-10-12] MEDS ORDERED: VANCOMYCIN IV PER PHARMACY 1 EACH MISC MISCELLANE PRN (14:58)
[2021-10-12] MEDS ORDERED: FUROSEMIDE 20 MG TAB PO SCH (15:00)
[2021-10-12] MEDS: MORPHINE SULFATE 4 MG/ML SYRINGE IVP PRN (15:19)
[2021-10-12 15:25] LABS: Glucose,Whole Blood 348 mg/dL (70-110)
--- NOTE | 2021-10-12 15:29 | P.HPIM ---
History of Present Illness H&P Date: 10/12/21 Chief Complaint: Weakness 81-year-old female with a very complex medical history including coronary disease status post stent, chronic kidney stage III, chronic systolic CHF EF 40- 45%. Anemia of chronic disease, severe peripheral vascular disease with chronic left lower extremity ulcer status post intervention October 07 the patient had left femoral popliteal artery atherectomy. Primary told me that left lower extremity amputation was discussed by Dr. Triana. Patient is admitted to the emergency room with a chief complaint generalized weakness and debility. Family called ambulance yesterday because he couldn't get the patient off the commode. Family noticed that the patient was confused earlier today 2. Patient's currently alert oriented 3. She denies any chest pain or shortness of breath. But she is complaining of generalized weakness and fatigue. In the emergency room the patient was found to have very high blood sugar at 541. Patient he stated that she wasn't taking her insulin. Also workup in emergency room showed evidence of UTI. Patient also complaining of increased drainage from the left lower extremity chronic necrotic ulcer. Also the patient developed left heel ulcer and right heel ulcer. Left lower extremity wounds around the chronic ulcer in the left leg is draining pussy material. Review of system: All 14 review of systems evaluated and all negative except for above. Physical examination: General: Appears weak and debilitated. Derm: warm, dry Head: atraumatic, normocephalic, symmetric Eyes: EOMI, no lid lag, anicteric sclera Mouth: no lip lesion, mucus membranes moist Cardiovascular: S1S2 reg, no murmur, positive posterior tibial pulse bilateral, Lungs: CTA bilateral, no rhonchi, no rales , no accessory muscle use Abdominal: soft, nontender to palpation, no guarding, no appreciable organomegaly Neuro: CN II-XI grossly intact, no focal neuro deficits Psych: Alert, oriented, appropriate affect Skin : 7 x 6 the necrotic ulcer with surrounding cellulitis with erythema and skin excoriation with purulent drainage. Left back to his dry and gangrenous. Left heel ulcer. Right heel ulcer Assessment and plan: #Infected left leg ulcer with severe sepsis #Peripheral vascular disease the left lower extremity status post left femoral and popliteal artery arthrectomy October 07 -Vascular surgery consulted -Blood culture obtained in emergency room -Check CRP and sed rate stat -Check lactic acid level. -Hold diuretics -Patient started on broad-spectrum antibioticS vancomycin and cefepime -Infectious disease consulted -Wound culture -Possible need for amputation discussed with family. He stated that Dr. Triana discussed amputation with them prior to recent procedure. #Urinary tract infection -Await urine culture results -Resume antibiotic as above #Type 2 diabetes mellitus with uncontrolled hyperglycemia -Secondary to medical noncompliance -A1c was 8.5 on June -Repeat A1c -Resume basal bolus insulin #Diabetic peripheral neuropathy -Resume Lyrica #Chronic systolic heart failure EF 40-45% -Resume carvedilol -Mother next exacerbation -Hold Lasix due to sepsis -Cardiology consulted #Coronary disease status post stent -Recent and STEMI on June 2021 -Resume beta gil and statins #Paroxysmal A. fib -Normal sinus rhythm -Resume Eliquis #Chronic kidney stage III #Mild hyponatremia -Hold diuretics -Consult nephrology #Obesity BMI 32 #Dyslipidemia -Resume statins #Anemia of chronic disease #Debility and deconditioning -Consider PT/OT evaluation when medically stable #Code status post addressed with family and they are maintaining full CODE STATUS Past Medical History Past Medical History: Diabetes Mellitus, GERD/Reflux, Hypertension, Osteoarthritis (OA), Skin Disorder, Syncope, Vascular Disorder Additional Past Medical History / Comment(s): Arthritis in lower back. Poor circulation in legs, wound left lower leg calf area w/ pain, neuropathy in feet, goes to [facility] Center. Edema BLE, wears TEDS on right leg. SOB ON EXERTION History of Any Multi-Drug Resistant Organisms: None Reported Past Surgical History: Appendectomy, Breast Surgery, Ear Surgery, Heart Catheterization, Heart Catheterization With Stent, Hysterectomy Additional Past Surgical History / Comment(s): Varicose vein stripping left leg. Left ear myringotomy/tubes. colonoscopy. Left breast biopsy. Bilateral cataracts. Left leg wound debridement. Past Anesthesia/Blood Transfusion Reactions: No Reported Reaction Date of Last Stent Placement:: 11/26 Past Psychological History: No Psychological Hx Reported Smoking Status: Former smoker Past Alcohol Use History: Rare Past Drug Use History: None Reported - Past Family History Father Family Medical History: Cancer Additional Family Medical History / Comment(s): COLON CANCER. Mother Family Medical History: Diabetes Mellitus, Renal Disease Additional Family Medical History / Comment(s): RENAL FAILURE. Brother(s) Family Medical History: Cancer Additional Family Medical History / Comment(s): 3 brothers - 2 had stomach cancer, 1 had esophageal cancer. Medications and Allergies Home Medications Medication Instructions Recorded Confirmed Type Pantoprazole Sodium 40 mg PO DAILY 05/08/18 10/12/21 History Famotidine [Pepcid] 20 mg PO HS 06/08/19 10/12/21 History Ferrous Sulfate [Iron (65 MG 325 mg PO DAILY 06/08/19 10/12/21 History Elemental)] Acetaminophen [Tylenol Extra 1,000 mg PO Q6H PRN 03/30/21 10/12/21 History Strength] Ascorbic Acid [Vitamin C] 1,000 mg PO DAILY 03/30/21 10/12/21 History Fluticasone Nasal [place] [Flonase 1 spr EA NOSTRIL DAILY PRN 06/17/21 10/12/21 History Nasal [place]] Apixaban [Eliquis] 2.5 mg PO BID #60 tablet 06/30/21 10/12/21 Rx Furosemide [Lasix] 60 mg PO BID@0900,1500 08/11/21 10/12/21 History Insulin Aspart [NovoLOG Flexpen] See Protocol SQ AC-TID 08/28/21 10/12/21 History Insulin Glargine,Hum.rec.anlog 18 units SQ HS 08/28/21 10/12/21 History [Lantus Solostar Pen] L.acidoph,Paracasei, B.lactis 1 cap PO DAILY 09/29/21 10/12/21 History [Probiotic] carvediloL 12.5 mg PO BID 09/29/21 10/12/21 History Atorvastatin [Lipitor] 80 mg PO HS #90 tab 10/08/21 10/12/21 Rx Clopidogrel [Plavix] 75 mg PO DAILY #90 tab 10/08/21 10/12/21 Rx Cholecalciferol [Vitamin D3 (25 50 mcg PO DAILY 10/12/21 10/12/21 History Mcg = 1000 Iu)] Pregabalin [Lyrica] 100 mg PO BID 10/12/21 10/12/21 History Allergies Allergy/AdvReac Type Severity Reaction Status Date / Time bacitracin Allergy Unknown Verified 10/12/21 11:08 [From Neosporin ([id number])] bacitracin zinc Allergy Unknown Verified 10/12/21 11:08 [From Neosporin ([id number])] latex Allergy Rash/Hives Verified 10/12/21 11:08 neomycin sulfate Allergy Unknown Verified 10/12/21 11:08 [From Neosporin ([id number])] Penicillins Allergy Rash & Verified 10/12/21 11:08 Fatigue polymyxin B Allergy Unknown Verified 10/12/21 11:08 [From Neosporin ([id number])] Sulfa (Sulfonamide Allergy Rash & Verified 10/12/21 11:08 Antibiotics) Fatigue Physical Exam Vitals: Vital Signs Temp Pulse Resp BP Pulse Ox 10/12/21 14:12 85 18 156/72 96 10/12/21 12:38 80 18 173/64 100 10/12/21 11:08 99 F 78 18 160/57 98 Intake and Output 10/12/21 10/12/21 10/12/21 06:59 14:59 22:59 Other: Weight 77.564 kg Results CBC & Chem 7: 10/12/21 11:33 10/12/21 11:33 Labs: Abnormal Lab Results - Last 24 Hours (Table) 10/12/21 10/12/21 10/12/21 Range/Units 11:33 11:33 12:40 WBC 16.3 H (3.8-10.6) k/uL RBC 3.09 L (3.80-5.40) m/uL Hgb 8.4 L (11.4-16.0) gm/dL Hct 28.0 L (34.0-46.0) % MCHC 30.1 L (31.0-37.0) g/dL Plt Count 543 H (150-450) k/uL Neutrophils # 14.3 H (1.3-7.7) k/uL Lymphocytes # 0.9 L (1.0-4.8) k/uL Sodium 130 L (137-145) mmol/L Potassium 5.5 H (3.5-5.1) mmol/L Carbon Dioxide 14 L (22-30) mmol/L BUN 43 H (7-17) mg/dL Creatinine 1.47 H (0.52-1.04) mg/dL Glucose 541 H* (74-99) mg/dL POC Glucose (mg/dL) (70-110) mg/dL Alkaline Phosphatase 141 H (38-126) U/L Albumin 3.2 L (3.5-5.0) g/dL Urine Appearance Cloudy H (Clear) Urine Protein Trace H (Negative) Urine Glucose (UA) 4+ H (Negative) Urine Blood Moderate H (Negative) Ur Leukocyte Esterase Large H (Negative) Urine RBC 17 H (0-5) /hpf Urine WBC 46 H (0-5) /hpf Urine WBC Clumps Few H (None) /hpf Ur Squamous Epith Cells 5 H (0-4) /hpf Urine Bacteria Rare H (None) /hpf Urine Mucus Rare H (None) /hpf 10/12/21 Range/Units 14:11 WBC (3.8-10.6) k/uL RBC (3.80-5.40) m/uL Hgb (11.4-16.0) gm/dL Hct (34.0-46.0) % MCHC (31.0-37.0) g/dL Plt Count (150-450) k/uL Neutrophils # (1.3-7.7) k/uL Lymphocytes # (1.0-4.8) k/uL Sodium (137-145) mmol/L Potassium (3.5-5.1) mmol/L Carbon Dioxide (22-30) mmol/L BUN (7-17) mg/dL Creatinine (0.52-1.04) mg/dL Glucose (74-99) mg/dL POC Glucose (mg/dL) 402 H (70-110) mg/dL Alkaline Phosphatase (38-126) U/L Albumin (3.5-5.0) g/dL Urine Appearance (Clear) Urine Protein (Negative) Urine Glucose (UA) (Negative) Urine Blood (Negative) Ur Leukocyte Esterase (Negative) Urine RBC (0-5) /hpf Urine WBC (0-5) /hpf Urine WBC Clumps (None) /hpf Ur Squamous Epith Cells (0-4) /hpf Urine Bacteria (None) /hpf Urine Mucus (None) /hpf
[2021-10-12] MEDS ORDERED: VANCOMYCIN 1,500 MG in SODIUM CHLORIDE 0.9% 250 ML IVPB PRN (15:43)
[2021-10-12] MEDS: CEFEPIME 2 GM in SODIUM CHLORIDE 0.9% 100 ML IVPB SCH (16:24)
[2021-10-12 16:25] LABS: Glucose,Whole Blood 275 mg/dL (70-110)
[2021-10-12] MEDS: SODIUM CHLORIDE 0.9% 1,000 ML IV SCH (16:25)
[2021-10-12] MEDS: INSULIN ASPART (NovoLOG) 100 UNIT/ML VIAL SQ SCH ×3 (17:03→20:55)
[2021-10-12] MEDS: carvediloL 12.5 MG TAB PO SCH (17:03)
[2021-10-12 20:19] LABS: Glucose,Whole Blood 280 mg/dL (70-110)
[2021-10-12] MEDS: INSULIN DETEMIR (LEVEMIR) 100 UNIT/ML SYR SQ SCH (20:56)
[2021-10-12] MEDS: ACETAMINOPHEN TAB 325 MG TAB PO PRN (20:59)
[2021-10-12] MEDS: PREGABALIN 100 MG CAP PO SCH (21:01)
--- NOTE | 2021-10-12 22:54 | P.CONS ---
History of Present Illness - Reason for Consult Consult date: 10/12/21 - History of Present Illness Patient is 81-year-old female with a past medical history significant for chronic nonhealing wound to the left lower extremity on the medial aspect with underlying peripheral arterial disease in this patient who was recently admitted at this facility by vascular surgery patient did have a selective left lower extremity angiogram also have a left femoral and popliteal artery atherect cookie and balloon angioplasty patient was subsequently discharged home on 10/08/2021 and is now presenting back to the hospital complaining of increasing pain to the left lower extremity as well as weakness patient described the pain to be sharp almost 10 or 10 in severity and no radiation patient denies any foul-smelling drainage from her leg wound did have some associated swelling and minimal redness patient on presentation to the hospital was afebrile patient did have a white count of 16.3 with a left shift BNP has been mildly elevated liver enzymes are normal she also have a positive UA culture has been obtained patient was started empirically on cefepime and vancomycin infectious disease was consulted for further management of antibiotic therapy Past Medical History Past Medical History: Diabetes Mellitus, GERD/Reflux, Hypertension, Osteoarthrit is (OA), Skin Disorder, Syncope, Vascular Disorder Additional Past Medical History / Comment(s): Arthritis in lower back. Poor circulation in legs, wound left lower leg calf area w/ pain, neuropathy in feet, goes to [facility]. Edema BLE, wears TEDS on right leg. SOB ON EXERTION History of Any Multi-Drug Resistant Organisms: None Reported Past Surgical History: Appendectomy, Breast Surgery, Ear Surgery, Heart Catheterization, Heart Catheterization With Stent, Hysterectomy Additional Past Surgical History / Comment(s): Varicose vein stripping left leg. Left ear myringotomy/tubes. colonoscopy. Left breast biopsy. Bilateral cataracts. Left leg wound debridement. Past Anesthesia/Blood Transfusion Reactions: No Reported Reaction Date of Last Stent Placement:: 11/26 Past Psychological History: No Psychological Hx Reported Smoking Status: Former smoker Past Alcohol Use History: Rare Past Drug Use History: None Reported - Past Family History Father Family Medical History: Cancer Additional Family Medical History / Comment(s): COLON CANCER. Mother Family Medical History: Diabetes Mellitus, Renal Disease Additional Family Medical History / Comment(s): RENAL FAILURE. Brother(s) Family Medical History: Cancer Additional Family Medical History / Comment(s): 3 brothers - 2 had stomach cancer, 1 had esophageal cancer. Medications and Allergies Home Medications Medication Instructions Recorded Confirmed Type Pantoprazole Sodium 40 mg PO DAILY 05/08/18 10/12/21 History Famotidine [Pepcid] 20 mg PO HS 06/08/19 10/12/21 History Ferrous Sulfate [Iron (65 MG 325 mg PO DAILY 06/08/19 10/12/21 History Elemental)] Acetaminophen [Tylenol Extra 1,000 mg PO Q6H PRN 03/30/21 10/12/21 History Strength] Ascorbic Acid [Vitamin C] 1,000 mg PO DAILY 03/30/21 10/12/21 History Fluticasone Nasal [place] [Flonase 1 spr EA NOSTRIL DAILY PRN 06/17/21 10/12/21 History Nasal [place]] Apixaban [Eliquis] 2.5 mg PO BID #60 tablet 06/30/21 10/12/21 Rx Furosemide [Lasix] 60 mg PO BID@0900,1500 08/11/21 10/12/21 History Insulin Aspart [NovoLOG Flexpen] See Protocol SQ AC-TID 08/28/21 10/12/21 History Insulin Glargine,Hum.rec.anlog 18 units SQ HS 08/28/21 10/12/21 History [Lantus Solostar Pen] L.acidoph,Paracasei, B.lactis 1 cap PO DAILY 09/29/21 10/12/21 History [Probiotic] carvediloL 12.5 mg PO BID 09/29/21 10/12/21 History Atorvastatin [Lipitor] 80 mg PO HS #90 tab 10/08/21 10/12/21 Rx Clopidogrel [Plavix] 75 mg PO DAILY #90 tab 10/08/21 10/12/21 Rx Cholecalciferol [Vitamin D3 (25 50 mcg PO DAILY 10/12/21 10/12/21 History Mcg = 1000 Iu)] Pregabalin [Lyrica] 100 mg PO BID 10/12/21 10/12/21 History Allergies Allergy/AdvReac Type Severity Reaction Status Date / Time bacitracin Allergy Unknown Verified 10/12/21 11:08 [From Neosporin ([id number])] bacitracin zinc Allergy Unknown Verified 10/12/21 11:08 [From Neosporin ([id number])] latex Allergy Rash/Hives Verified 10/12/21 11:08 neomycin sulfate Allergy Unknown Verified 10/12/21 11:08 [From Neosporin ([id number])] Penicillins Allergy Rash & Verified 10/12/21 11:08 Fatigue polymyxin B Allergy Unknown Verified 10/12/21 11:08 [From Neosporin ([id number])] Sulfa (Sulfonamide Allergy Rash & Verified 10/12/21 11:08 Antibiotics) Fatigue Physical Exam Vitals: Vital Signs Temp Pulse Pulse Resp BP BP Pulse Ox 10/12/21 15:25 99.1 F 97 19 171/76 97 10/12/21 14:12 85 18 156/72 96 10/12/21 12:38 80 18 173/64 100 10/12/21 11:08 99 F 78 18 160/57 98 Intake and Output 10/12/21 10/12/21 10/12/21 06:59 14:59 22:59 Other: Weight 77.564 kg Results CBC & Chem 7: 10/12/21 11:33 10/12/21 11:33 Labs: Abnormal Lab Results - Last 24 Hours (Table) 10/12/21 10/12/21 10/12/21 Range/Units 11:33 11:33 12:40 WBC 16.3 H (3.8-10.6) k/uL RBC 3.09 L (3.80-5.40) m/uL Hgb 8.4 L (11.4-16.0) gm/dL Hct 28.0 L (34.0-46.0) % MCHC 30.1 L (31.0-37.0) g/dL Plt Count 543 H (150-450) k/uL Neutrophils # 14.3 H (1.3-7.7) k/uL Lymphocytes # 0.9 L (1.0-4.8) k/uL Sodium 130 L (137-145) mmol/L Potassium 5.5 H (3.5-5.1) mmol/L Carbon Dioxide 14 L (22-30) mmol/L BUN 43 H (7-17) mg/dL Creatinine 1.47 H (0.52-1.04) mg/dL Glucose 541 H* (74-99) mg/dL POC Glucose (mg/dL) (70-110) mg/dL Alkaline Phosphatase 141 H (38-126) U/L C-Reactive Protein (<1.0) mg/dL Albumin 3.2 L (3.5-5.0) g/dL Urine Appearance Cloudy H (Clear) Urine Protein Trace H (Negative) Urine Glucose (UA) 4+ H (Negative) Urine Blood Moderate H (Negative) Ur Leukocyte Esterase Large H (Negative) Urine RBC 17 H (0-5) /hpf Urine WBC 46 H (0-5) /hpf Urine WBC Clumps Few H (None) /hpf Ur Squamous Epith Cells 5 H (0-4) /hpf Urine Bacteria Rare H (None) /hpf Urine Mucus Rare H (None) /hpf 10/12/21 10/12/21 10/12/21 Range/Units 14:11 15:17 15:23 WBC (3.8-10.6) k/uL RBC (3.80-5.40) m/uL Hgb (11.4-16.0) gm/dL Hct (34.0-46.0) % MCHC (31.0-37.0) g/dL Plt Count (150-450) k/uL Neutrophils # (1.3-7.7) k/uL Lymphocytes # (1.0-4.8) k/uL Sodium (137-145) mmol/L Potassium (3.5-5.1) mmol/L Carbon Dioxide (22-30) mmol/L BUN (7-17) mg/dL Creatinine (0.52-1.04) mg/dL Glucose (74-99) mg/dL POC Glucose (mg/dL) 402 H 348 H (70-110) mg/dL Alkaline Phosphatase (38-126) U/L C-Reactive Protein 18.6 H (<1.0) mg/dL Albumin (3.5-5.0) g/dL Urine Appearance (Clear) Urine Protein (Negative) Urine Glucose (UA) (Negative) Urine Blood (Negative) Ur Leukocyte Esterase (Negative) Urine RBC (0-5) /hpf Urine WBC (0-5) /hpf Urine WBC Clumps (None) /hpf Ur Squamous Epith Cells (0-4) /hpf Urine Bacteria (None) /hpf Urine Mucus (None) /hpf 10/12/21 Range/Units 16:23 WBC (3.8-10.6) k/uL RBC (3.80-5.40) m/uL Hgb (11.4-16.0) gm/dL Hct (34.0-46.0) % MCHC (31.0-37.0) g/dL Plt Count (150-450) k/uL Neutrophils # (1.3-7.7) k/uL Lymphocytes # (1.0-4.8) k/uL Sodium (137-145) mmol/L Potassium (3.5-5.1) mmol/L Carbon Dioxide (22-30) mmol/L BUN (7-17) mg/dL Creatinine (0.52-1.04) mg/dL Glucose (74-99) mg/dL POC Glucose (mg/dL) 275 H (70-110) mg/dL Alkaline Phosphatase (38-126) U/L C-Reactive Protein (<1.0) mg/dL Albumin (3.5-5.0) g/dL Urine Appearance (Clear) Urine Protein (Negative) Urine Glucose (UA) (Negative) Urine Blood (Negative) Ur Leukocyte Esterase (Negative) Urine RBC (0-5) /hpf Urine WBC (0-5) /hpf Urine WBC Clumps (None) /hpf Ur Squamous Epith Cells (0-4) /hpf Urine Bacteria (None) /hpf Urine Mucus (None) /hpf Assessment and Plan Plan: 1patient presented to hospital with pain to the left lower extremity in this patient who did have a chronic nonhealing wound to the left leg concerning for wound infection secondary cellulitis plus minus a component of UTI in this patient has been in and out of the hospital will need to cover for resistant gram-positive as well as gram-negative. 2patient with multiple antibiotic allergies that would limit the number of antibiotics safe to use 3patient to continue with the vancomycin pharmacy to dose and cefepime. 4local wound care to the left leg wound with the Medihoney followed by moist dressing change daily. We will follow on clinical condition and cultures to further adjust medication if needed Thank you for this consultation will follow this patient along with you Time with Patient: Greater than 30
[2021-10-12] MEDS ORDERED: VANCOMYCIN 1,500 MG in SODIUM CHLORIDE 0.9% 250 ML IVPB ONE (23:00)
[2021-10-12] MEDS: ATORVASTATIN 80 MG TAB PO SCH (23:44)
[2021-10-12] MEDS: FAMOTIDINE 20 MG TAB PO SCH (23:44)
[2021-10-12] MEDS: APIXABAN 2.5 MG TABLET PO SCH (23:44)
[2021-10-13 00:44] LABS: Glucose,Whole Blood 138 mg/dL (70-110)
[2021-10-13] MEDS ORDERED: IBUPROFEN 200 MG TAB PO ONE (01:00)
[2021-10-13] MEDS: CEFEPIME 2 GM in SODIUM CHLORIDE 0.9% 100 ML IVPB SCH ×2 (01:20→07:07)
[2021-10-13] MEDS ORDERED: traMADol 50 MG TAB PO STA (03:07)
[2021-10-13] MEDS: ACETAMINOPHEN TAB 325 MG TAB PO PRN (07:05)
[2021-10-13 07:07] LABS: Glucose,Whole Blood 60 mg/dL (70-110)
[2021-10-13] MEDS: INSULIN ASPART (NovoLOG) 100 UNIT/ML VIAL SQ SCH ×7 (07:09→21:20)
[2021-10-13 07:28] LABS: Glucose,Whole Blood 81 mg/dL (70-110)
[2021-10-13] MEDS: carvediloL 12.5 MG TAB PO SCH ×2 (08:15→17:26)
[2021-10-13] MEDS: PANTOPRAZOLE 40 MG TABLET PO SCH (08:15)
[2021-10-13] MEDS ORDERED: CLOPIDOGREL 75 MG TAB PO SCH (09:00)
--- NOTE | 2021-10-13 09:12 | P.NPCON ---
History of Present Illness - Reason for Consult acute renal failure, chronic renal failure - History of Present Illness Reason for consultation: Acute kidney injury on chronic kidney disease History of present illness: Patient is an 81-year-old female seen in renal consultation for acute kidney injury on chronic kidney disease. Patient has chronic kidney disease stage IIIA with baseline creatinine in the range of 1.2-1.4. Creatinine on admission was 1.47. Patient presented to the hospital due to generalized weakness. Patient states she did not even have the energy to stand. She also has wounds on her left lower extremity. Patient says she's been a diabetic for over 40 years. She's has episodes of acute kidney injury in the past. Patient's blood glucose was over 500 on admission. Sodium level was 1:30. She was noted to be acidotic with a bicarbonate level of 14. She denies vomiting or diarrhea. Oral intake has been fair. She denies use of nonsteroidals. Blood pressure stable. She did have a fever of 101F as of yesterday evening. She was taking Lasix which is currently held. She denies any cough. Denies dysuria or hematuria. UA is suggestive of UTI. She is currently receiving IV antibiotics. Vital signs are stable. General: Awake and alert. No acute distress. HEENT: Head exam is unremarkable. LUNGS: Breath sounds decreased. HEART: Rate and Rhythm are regular. ABDOMEN: Soft, no distention. EXTREMITITES: Trace edema right lower extremity. Left lower extremity wounds noted. Past Medical History Past Medical History: Diabetes Mellitus, GERD/Reflux, Hypertension, Osteoarthritis (OA), Skin Disorder, Syncope, Vascular Disorder Additional Past Medical History / Comment(s): Arthritis in lower back. Poor circulation in legs, wound left lower leg calf area w/ pain, neuropathy in feet, goes to Wound Center. Edema BLE, wears TEDS on right leg. SOB ON EXERTION History of Any Multi-Drug Resistant Organisms: None Reported Past Surgical History: Appendectomy, Breast Surgery, Ear Surgery, Heart Catheterization, Heart Catheterization With Stent, Hysterectomy Additional Past Surgical History / Comment(s): Varicose vein stripping left leg. Left ear myringotomy/tubes. colonoscopy. Left breast biopsy. Bilateral cataracts. Left leg wound debridement. Past Anesthesia/Blood Transfusion Reactions: No Reported Reaction Date of Last Stent Placement:: 11/26 Past Psychological History: No Psychological Hx Reported Smoking Status: Former smoker Past Alcohol Use History: Rare Past Drug Use History: None Reported - Past Family History Father Family Medical History: Cancer Additional Family Medical History / Comment(s): COLON CANCER. Mother Family Medical History: Diabetes Mellitus, Renal Disease Additional Family Medical History / Comment(s): RENAL FAILURE. Brother(s) Family Medical History: Cancer Additional Family Medical History / Comment(s): 3 brothers - 2 had stomach cancer, 1 had esophageal cancer. Medications and Allergies Home Medications Medication Instructions Recorded Confirmed Type Pantoprazole Sodium 40 mg PO DAILY 05/08/18 10/12/21 History Famotidine [Pepcid] 20 mg PO HS 06/08/19 10/12/21 History Ferrous Sulfate [Iron (65 MG 325 mg PO DAILY 06/08/19 10/12/21 History Elemental)] Acetaminophen [Tylenol Extra 1,000 mg PO Q6H PRN 03/30/21 10/12/21 History Strength] Ascorbic Acid [Vitamin C] 1,000 mg PO DAILY 03/30/21 10/12/21 History Fluticasone Nasal [place] [Flonase 1 spr EA NOSTRIL DAILY PRN 06/17/21 10/12/21 History Nasal [place]] Apixaban [Eliquis] 2.5 mg PO BID #60 tablet 06/30/21 10/12/21 Rx Furosemide [Lasix] 60 mg PO BID@0900,1500 08/11/21 10/12/21 History Insulin Aspart [NovoLOG Flexpen] See Protocol SQ AC-TID 08/28/21 10/12/21 History Insulin Glargine,Hum.rec.anlog 18 units SQ HS 08/28/21 10/12/21 History [Lantus Solostar Pen] L.acidoph,Paracasei, B.lactis 1 cap PO DAILY 09/29/21 10/12/21 History [Probiotic] carvediloL 12.5 mg PO BID 09/29/21 10/12/21 History Atorvastatin [Lipitor] 80 mg PO HS #90 tab 10/08/21 10/12/21 Rx Clopidogrel [Plavix] 75 mg PO DAILY #90 tab 10/08/21 10/12/21 Rx Cholecalciferol [Vitamin D3 (25 50 mcg PO DAILY 10/12/21 10/12/21 History Mcg = 1000 Iu)] Pregabalin [Lyrica] 100 mg PO BID 10/12/21 10/12/21 History Allergies Allergy/AdvReac Type Severity Reaction Status Date / Time bacitracin Allergy Unknown Verified 10/12/21 11:08 [From Neosporin ([id number])] bacitracin zinc Allergy Unknown Verified 10/12/21 11:08 [From Neosporin ([id number])] latex Allergy Rash/Hives Verified 10/12/21 11:08 neomycin sulfate Allergy Unknown Verified 10/12/21 11:08 [From Neosporin ([id number])] Penicillins Allergy Rash & Verified 10/12/21 11:08 Fatigue polymyxin B Allergy Unknown Verified 10/12/21 11:08 [From Neosporin ([id number])] Sulfa (Sulfonamide Allergy Rash & Verified 10/12/21 11:08 Antibiotics) Fatigue Physical Exam Vitals: Vital Signs Temp Pulse Pulse Resp BP BP Pulse Ox 10/13/21 07:36 98.1 F 77 17 106/57 97 10/13/21 03:50 98.5 F 10/13/21 00:23 101 F H 86 16 127/57 96 10/12/21 20:54 101.0 F H 91 18 144/65 95 10/12/21 19:05 18 10/12/21 15:25 99.1 F 97 19 171/76 97 10/12/21 14:12 85 18 156/72 96 10/12/21 12:38 80 18 173/64 100 10/12/21 11:08 99 F 78 18 160/57 98 Intake and Output 10/12/21 10/13/21 10/13/21 22:59 06:59 14:59 Output Total 150 Balance -150 Output: Urine 150 Other: Voiding Method External Catheter # Voids 1 Results - Lab Results Most recent lab results Calcium 8.5 mg/dL (8.4-10.2) 10/12/21 11:33 Magnesium 2.1 mg/dL (1.6-2.3) 10/12/21 11:33 10/12/21 11:33 10/12/21 11:33 Assessment and Plan Plan: Assessment: 1. Acute kidney injury mostly prerenal secondary to infection and hyperglycemia. Creatinine 1.47 on admission. Kidney ultrasound from June 2021 showed no evidence of hydronephrosis. 2. Chronic kidney disease stage IIIA with baseline creatinine in the range of 1.2-1.4 secondary to prior acute kidney injury episodes as well as diabetic kidney disease. 3. Left lower extremity wounds. 4. Hyperkalemia secondary to hyperglycemia and metabolic acidosis. 5. Metabolic acidosis secondary to acute kidney injury and IV fluids. Acetone negative. 6. Hypotonic hyponatremia secondary to hyperglycemia. 7. Anemia of chronic kidney disease. Rule out iron deficiency. 8. Diabetes mellitus. 9. Chronic systolic CHF with ejection fraction of 40-45% with mild to moderate tricuspid regurgitation and moderate pulmonary hypertension. Plan: Maintain gentle IV hydration. Encouraged oral intake. Blood sugar control. Add oral sodium bicarb. Follow-up cultures. Avoid nephrotoxins. Antibiotics per infectious disease. Continue to monitor renal function and urine output. Check iron studies. Thank you for the consultation. I will continue to follow the patient with you during her hospital stay.
--- NOTE | 2021-10-13 09:23 | P.GSCN ---
History of Present Illness Consult date: 10/13/21 History of present illness: Becky is an 81-year-old female well known to me from previous. She recently underwent a left lower extremity atherectomy and angioplasty. Since the oscillation her leg pain has significantly improved and she no longer has to D cj leg over the side of the bed in order to relieve her pain. Her swelling in her leg has improved and she is beginning to have scaling skin. She states she has not really done anything for dressings on her leg in the interim since being discharged. On admission to the hospital, she was found to have a significant urinary tract infection. Past Medical History Past Medical History: Diabetes Mellitus, GERD/Reflux, Hypertension, Osteoarthrit is (OA), Skin Disorder, Syncope, Vascular Disorder Additional Past Medical History / Comment(s): Arthritis in lower back. Poor circulation in legs, wound left lower leg calf area w/ pain, neuropathy in feet, goes to [facility]. Edema BLE, wears TEDS on right leg. SOB ON EXERTION History of Any Multi-Drug Resistant Organisms: None Reported Past Surgical History: Appendectomy, Breast Surgery, Ear Surgery, Heart Catheterization, Heart Catheterization With Stent, Hysterectomy Additional Past Surgical History / Comment(s): Varicose vein stripping left leg. Left ear myringotomy/tubes. colonoscopy. Left breast biopsy. Bilateral cataracts. Left leg wound debridement. Past Anesthesia/Blood Transfusion Reactions: No Reported Reaction Date of Last Stent Placement:: 11/26 Past Psychological History: No Psychological Hx Reported Smoking Status: Former smoker Past Alcohol Use History: Rare Past Drug Use History: None Reported - Past Family History Father Family Medical History: Cancer Additional Family Medical History / Comment(s): COLON CANCER. Mother Family Medical History: Diabetes Mellitus, Renal Disease Additional Family Medical History / Comment(s): RENAL FAILURE. Brother(s) Family Medical History: Cancer Additional Family Medical History / Comment(s): 3 brothers - 2 had stomach cancer, 1 had esophageal cancer. Medications and Allergies Home Medications Medication Instructions Recorded Confirmed Type Pantoprazole Sodium 40 mg PO DAILY 05/08/18 10/12/21 History Famotidine [Pepcid] 20 mg PO HS 06/08/19 10/12/21 History Ferrous Sulfate [Iron (65 MG 325 mg PO DAILY 06/08/19 10/12/21 History Elemental)] Acetaminophen [Tylenol Extra 1,000 mg PO Q6H PRN 03/30/21 10/12/21 History Strength] Ascorbic Acid [Vitamin C] 1,000 mg PO DAILY 03/30/21 10/12/21 History Fluticasone Nasal [place] [Flonase 1 spr EA NOSTRIL DAILY PRN 06/17/21 10/12/21 History Nasal [place]] Apixaban [Eliquis] 2.5 mg PO BID #60 tablet 06/30/21 10/12/21 Rx Furosemide [Lasix] 60 mg PO BID@0900,1500 08/11/21 10/12/21 History Insulin Aspart [NovoLOG Flexpen] See Protocol SQ AC-TID 08/28/21 10/12/21 History Insulin Glargine,Hum.rec.anlog 18 units SQ HS 08/28/21 10/12/21 History [Lantus Solostar Pen] L.acidoph,Paracasei, B.lactis 1 cap PO DAILY 09/29/21 10/12/21 History [Probiotic] carvediloL 12.5 mg PO BID 09/29/21 10/12/21 History Atorvastatin [Lipitor] 80 mg PO HS #90 tab 10/08/21 10/12/21 Rx Clopidogrel [Plavix] 75 mg PO DAILY #90 tab 10/08/21 10/12/21 Rx Cholecalciferol [Vitamin D3 (25 50 mcg PO DAILY 10/12/21 10/12/21 History Mcg = 1000 Iu)] Pregabalin [Lyrica] 100 mg PO BID 10/12/21 10/12/21 History Allergies Allergy/AdvReac Type Severity Reaction Status Date / Time bacitracin Allergy Unknown Verified 10/12/21 11:08 [From Neosporin ([id number])] bacitracin zinc Allergy Unknown Verified 10/12/21 11:08 [From Neosporin ([id number])] latex Allergy Rash/Hives Verified 10/12/21 11:08 neomycin sulfate Allergy Unknown Verified 10/12/21 11:08 [From Neosporin ([id number])] Penicillins Allergy Rash & Verified 10/12/21 11:08 Fatigue polymyxin B Allergy Unknown Verified 10/12/21 11:08 [From Neosporin ([id number])] Sulfa (Sulfonamide Allergy Rash & Verified 10/12/21 11:08 Antibiotics) Fatigue Surgical - Exam Vital Signs Temp Pulse Resp BP Pulse Ox 99 F 78 18 160/57 98 10/12/21 11:08 10/12/21 11:08 10/12/21 11:08 10/12/21 11:08 10/12/21 11:08 Gen. is a pleasant cooperative chronically ill-appearing female in no acute distress. Overall appearing in better spirits than previous. HEENT is normal cephalic, atraumatic, etc. he motion intact. Heart is irregularly irregular. Lungs are clear bilaterally. Abdomen soft, nontender nondistended. Extremity show no cyanosis or clubbing. Edema of the left lower extremity is improved. There is a right heel wound that is unsuitable with eschar, it is small and looking to be improving in appearance. Left lower extremity has less edema than previously, scaling skin. The wound itself remains large however no erythema. Decent appearing granulation tissue but areas of fibrinous slough overlying as patient has not been doing wet-to-dry dressings. Improvement of the lower extremity wounds, there is some bullae at the level of the heel Results - Labs 10/12/21 11:33 10/12/21 11:33 Abnormal Lab Results - Last 24 Hours (Table) 10/12/21 10/12/21 10/12/21 Range/Units 11:33 11:33 12:40 WBC 16.3 H (3.8-10.6) k/uL RBC 3.09 L (3.80-5.40) m/uL Hgb 8.4 L (11.4-16.0) gm/dL Hct 28.0 L (34.0-46.0) % MCHC 30.1 L (31.0-37.0) g/dL Plt Count 543 H (150-450) k/uL Neutrophils # 14.3 H (1.3-7.7) k/uL Lymphocytes # 0.9 L (1.0-4.8) k/uL ESR (0-20) mm/hr Sodium 130 L (137-145) mmol/L Potassium 5.5 H (3.5-5.1) mmol/L Carbon Dioxide 14 L (22-30) mmol/L BUN 43 H (7-17) mg/dL Creatinine 1.47 H (0.52-1.04) mg/dL Glucose 541 H* (74-99) mg/dL POC Glucose (mg/dL) (70-110) mg/dL Alkaline Phosphatase 141 H (38-126) U/L C-Reactive Protein (<1.0) mg/dL Albumin 3.2 L (3.5-5.0) g/dL Urine Appearance Cloudy H (Clear) Urine Protein Trace H (Negative) Urine Glucose (UA) 4+ H (Negative) Urine Blood Moderate H (Negative) Ur Leukocyte Esterase Large H (Negative) Urine RBC 17 H (0-5) /hpf Urine WBC 46 H (0-5) /hpf Urine WBC Clumps Few H (None) /hpf Ur Squamous Epith Cells 5 H (0-4) /hpf Urine Bacteria Rare H (None) /hpf Urine Mucus Rare H (None) /hpf 10/12/21 10/12/21 10/12/21 Range/Units 14:11 15:17 15:17 WBC (3.8-10.6) k/uL RBC (3.80-5.40) m/uL Hgb (11.4-16.0) gm/dL Hct (34.0-46.0) % MCHC (31.0-37.0) g/dL Plt Count (150-450) k/uL Neutrophils # (1.3-7.7) k/uL Lymphocytes # (1.0-4.8) k/uL ESR 114 H (0-20) mm/hr Sodium (137-145) mmol/L Potassium (3.5-5.1) mmol/L Carbon Dioxide (22-30) mmol/L BUN (7-17) mg/dL Creatinine (0.52-1.04) mg/dL Glucose (74-99) mg/dL POC Glucose (mg/dL) 402 H (70-110) mg/dL Alkaline Phosphatase (38-126) U/L C-Reactive Protein 18.6 H (<1.0) mg/dL Albumin (3.5-5.0) g/dL Urine Appearance (Clear) Urine Protein (Negative) Urine Glucose (UA) (Negative) Urine Blood (Negative) Ur Leukocyte Esterase (Negative) Urine RBC (0-5) /hpf Urine WBC (0-5) /hpf Urine WBC Clumps (None) /hpf Ur Squamous Epith Cells (0-4) /hpf Urine Bacteria (None) /hpf Urine Mucus (None) /hpf 10/12/21 10/12/21 10/12/21 Range/Units 15:23 16:23 20:15 WBC (3.8-10.6) k/uL RBC (3.80-5.40) m/uL Hgb (11.4-16.0) gm/dL Hct (34.0-46.0) % MCHC (31.0-37.0) g/dL Plt Count (150-450) k/uL Neutrophils # (1.3-7.7) k/uL Lymphocytes # (1.0-4.8) k/uL ESR (0-20) mm/hr Sodium (137-145) mmol/L Potassium (3.5-5.1) mmol/L Carbon Dioxide (22-30) mmol/L BUN (7-17) mg/dL Creatinine (0.52-1.04) mg/dL Glucose (74-99) mg/dL POC Glucose (mg/dL) 348 H 275 H 280 H (70-110) mg/dL Alkaline Phosphatase (38-126) U/L C-Reactive Protein (<1.0) mg/dL Albumin (3.5-5.0) g/dL Urine Appearance (Clear) Urine Protein (Negative) Urine Glucose (UA) (Negative) Urine Blood (Negative) Ur Leukocyte Esterase (Negative) Urine RBC (0-5) /hpf Urine WBC (0-5) /hpf Urine WBC Clumps (None) /hpf Ur Squamous Epith Cells (0-4) /hpf Urine Bacteria (None) /hpf Urine Mucus (None) /hpf 10/13/21 10/13/21 Range/Units 00:40 07:05 WBC (3.8-10.6) k/uL RBC (3.80-5.40) m/uL Hgb (11.4-16.0) gm/dL Hct (34.0-46.0) % MCHC (31.0-37.0) g/dL Plt Count (150-450) k/uL Neutrophils # (1.3-7.7) k/uL Lymphocytes # (1.0-4.8) k/uL ESR (0-20) mm/hr Sodium (137-145) mmol/L Potassium (3.5-5.1) mmol/L Carbon Dioxide (22-30) mmol/L BUN (7-17) mg/dL Creatinine (0.52-1.04) mg/dL Glucose (74-99) mg/dL POC Glucose (mg/dL) 138 H 60 L (70-110) mg/dL Alkaline Phosphatase (38-126) U/L C-Reactive Protein (<1.0) mg/dL Albumin (3.5-5.0) g/dL Urine Appearance (Clear) Urine Protein (Negative) Urine Glucose (UA) (Negative) Urine Blood (Negative) Ur Leukocyte Esterase (Negative) Urine RBC (0-5) /hpf Urine WBC (0-5) /hpf Urine WBC Clumps (None) /hpf Ur Squamous Epith Cells (0-4) /hpf Urine Bacteria (None) /hpf Urine Mucus (None) /hpf Microbiology - Last 24 Hours (Table) 10/12/21 16:50 Gram Stain - Preliminary Leg - Left Wound Culture - Preliminary 10/12/21 16:50 Anaerobic Culture - Preliminary Leg - Left 10/12/21 12:40 Urine Culture - Preliminary Urine,Voided Diabetes panel 10/12/21 Range/Units 11:33 Sodium 130 L (137-145) mmol/L Potassium 5.5 H (3.5-5.1) mmol/L Chloride 101 (98-107) mmol/L Carbon Dioxide 14 L (22-30) mmol/L BUN 43 H (7-17) mg/dL Creatinine 1.47 H (0.52-1.04) mg/dL Glucose 541 H* (74-99) mg/dL Calcium 8.5 (8.4-10.2) mg/dL AST 20 (14-36) U/L ALT 14 (4-34) U/L Alkaline Phosphatase 141 H (38-126) U/L Total Protein 6.4 (6.3-8.2) g/dL Albumin 3.2 L (3.5-5.0) g/dL Calcium panel 10/12/21 Range/Units 11:33 Calcium 8.5 (8.4-10.2) mg/dL Albumin 3.2 L (3.5-5.0) g/dL Pituitary panel 10/12/21 Range/Units 11:33 Sodium 130 L (137-145) mmol/L Potassium 5.5 H (3.5-5.1) mmol/L Chloride 101 (98-107) mmol/L Carbon Dioxide 14 L (22-30) mmol/L BUN 43 H (7-17) mg/dL Creatinine 1.47 H (0.52-1.04) mg/dL Glucose 541 H* (74-99) mg/dL Calcium 8.5 (8.4-10.2) mg/dL Adrenal panel 10/12/21 Range/Units 11:33 Sodium 130 L (137-145) mmol/L Potassium 5.5 H (3.5-5.1) mmol/L Chloride 101 (98-107) mmol/L Carbon Dioxide 14 L (22-30) mmol/L BUN 43 H (7-17) mg/dL Creatinine 1.47 H (0.52-1.04) mg/dL Glucose 541 H* (74-99) mg/dL Calcium 8.5 (8.4-10.2) mg/dL Total Bilirubin 0.8 (0.2-1.3) mg/dL AST 20 (14-36) U/L ALT 14 (4-34) U/L Alkaline Phosphatase 141 H (38-126) U/L Total Protein 6.4 (6.3-8.2) g/dL Albumin 3.2 L (3.5-5.0) g/dL Assessment and Plan Assessment: Urinary tract infection Nonhealing left lower extremity wound Bilateral heel wounds Peripheral arterial disease Plan: At this point overall I am pleased with the progress the patient's wounds, overall her disposition. Better due to her improved pain control from improved blood flow. We will plan to take her to the operating room for debridement of her scaling skin and wound. We'll plan this for tomorrow. Continue antibiotics per infectious disease. Patient is a patient of wound care here at [facility]..
[2021-10-13 10:03] LABS: Acanthocytes 2+; Basophils # (A) 0.05 X 10*3/uL (0.00-0.10); Basophils % (A) 0.3 %; Eosinophils # (A) 0.06 X 10*3/uL (0.04-0.35); Eosinophils % (A) 0.4 %; HCT 23.3 % (37.2-46.3); Lymphocytes # (A) 1.71 X 10*3/uL (0.90-5.00); Lymphocytes % (A) 10.2 %; MCHC 29.2 g/dL (32.0-37.0); MCV 88.9 fL (80.0-97.0); Mean Platelet Volume 10.6 fL (9.5-12.2); Monocytes % (A) 10.2 %; NRBC Per 100 WBC 0 /100 WBCS (0.0-0.0); Neutrophils # (A) 13.04 X 10*3/uL (1.80-7.70); Neutrophils % (A) 77.9 %; Platelet Count 445 X 10*3/uL (140-440); RBC 2.62 X 10*6/uL (4.10-5.20); RDW 15.5 % (11.5-14.5); WBC 16.72 X 10*3/uL (4.50-10.00)
[2021-10-13 10:08] LABS: African American GFR (CKD) 40.5 (60.0-200.0); Albumin 2.7 g/dL (3.8-4.9); Albumin/Globulin Ratio 0.93 (1.60-3.17); Anion Gap 9.1 mmol/L (10.00-18.00); BUN/Creat Ratio 24.79 Ratio (12.00-20.00); Blood Urea Nitrogen 34.7 mg/dL (9.0-27.0); Calcium 8.6 mg/dL (8.7-10.3); Carbon Dioxide 17.9 mmol/L (20.0-27.5); Globulin 2.9 g/dL (1.6-3.3); Non-African American GFR(CKD) 34.9 (60.0-200.0); Potassium 5.2 mmol/L (3.5-5.5); Total Bilirubin 0.3 mg/dL (0.30-1.20); Total Protein 5.6 g/dL (6.2-8.2)
--- NOTE | 2021-10-13 10:12 | P.CRDCN ---
History of Present Illness Consult date: 10/13/21 History of present illness: HISTORY OF PRESENT ILLNESS: This is a 81-year-old female with a past medical history significant for peripheral vascular disease, coronary artery disease, atrial fibrillation, hypertension, hyperlipidemia, and diabetes. Patient follows in the office with Dr. Hsu. We have been asked to see the patient in consultation for perioperative clearance. Patient examined this morning. She is sitting up in the chair. Patient denies any chest pain or pressure. She denies shortness of breath. Patient underwent recent left lower extremity arthrectomy and angioplasty with Dr. Triana. The patient is scheduled for wound debridement of nonhealing left lower extremity wound tomorrow with Dr. Triana. Vital signs are stable. Patient was febrile overnight with a temperature of 101.0F * EKG reveals sinus mechanism with PACs * Chest xray negative for acute process * Laboratory data: WBC 16.72. Hemoglobin 6.8. Platelet count 445. Sodium 130. Potassium 5.5. BUN 43. Creatinine 1.47. Troponin negative 1. * Current home cardiac medications include carvedilol 12.5 mg twice a day, Lasix 60 mg twice a day, Plavix 75 mg daily, Lipitor 80 mg at night, Eliquis 2.5 mg twice a day * Most recent echocardiogram obtained in June 2021 revealed ejection fraction 40-45%, apical anterior, apical lateral, apical inferior, and apical septal LV wall hypokinesis, mild mitral regurgitation, [id number] tricuspid regurgitation, moderate pulmonary hypertension * Cardiac catheterization history: June 2019 revealed 30% left main, 20% RCA, right dominant, diffuse intimal disease involving the LAD, mild intimal disease involving the left circumflex * Previous cardiac catheterization in November 2017 with stent placement to the LAD * Patient underwent Lexiscan stress test and August 2021 revealing abnormal myocardial perfusion imaging with partially reversible anterior and anterior lateral wall defect consistent with stress-induced ischemia in the LAD territory. (This was noted in the past per Dr. Silver dictation) REVIEW OF SYSTEMS: At the time of my exam: CONSTITUTIONAL: Denies fever or chills. HEENT: Denies blurred vision, vision changes, or eye pain. Denies hemoptysis CARDIOVASCULAR: Denies chest pain. Denies orthopnea. Denies PND. Denies palpitations RESPIRATORY: Denies shortness of breath. GASTROINTESTINAL: Denies abdominal pain. Denies nausea or vomiting. HEMATOLOGIC: Denies bleeding disorders. GENITOURINARY: Denies any blood in urine. SKIN: Denies pruitis. Denies rash. PHYSICAL EXAM: VITAL SIGNS: Reviewed. GENERAL: Well-developed in no acute distress. HEENT: Head is normocephalic. Pupils are equal, round. Sclerae anicteric. Mucous membranes of the mouth are moist. Neck supple. No JVD or thyromegaly LUNGS: Respirations even and unlabored. Lungs essentially clear to auscultation bilaterally. HEART: Regular rate and rhythm. S1 and S2 heard. ABDOMEN: Soft. Nondistended. Nontender. EXTREMITIES: Normal range of motion. No clubbing or cyanosis. Peripheral pulses intact. Left leg with large ulcer noted. NEUROLOGIC: Awake and alert. Oriented x 3. ASSESSMENT: Urinary tract infection Nonhealing left lower extremity wound Peripheral vascular disease Coronary artery disease with previous stenting Paroxysmal atrial fibrillation Hypertension Hyperlipidemia Diabetes PLAN: No need to repeat echocardiogram as this was performed in June 2021 Continue home cardiac medications Patient has no complaints of angina and is clinically not in heart failure There are no absolute contraindications for patient to undergo surgical intervention with vascular surgery Further recommendations pending patient course Nurse practitioner note has been reviewed by physician. Signing provider agrees with the documented findings, assessment, and plan of care. Past Medical History Past Medical History: Diabetes Mellitus, GERD/Reflux, Hypertension, Osteoarthritis (OA), Skin Disorder, Syncope, Vascular Disorder Additional Past Medical History / Comment(s): Arthritis in lower back. Poor circulation in legs, wound left lower leg calf area w/ pain, neuropathy in feet, goes to [facility] Center. Edema BLE, wears TEDS on right leg. SOB ON EXERTION History of Any Multi-Drug Resistant Organisms: None Reported Past Surgical History: Appendectomy, Breast Surgery, Ear Surgery, Heart Catheterization, Heart Catheterization With Stent, Hysterectomy Additional Past Surgical History / Comment(s): Varicose vein stripping left leg. Left ear myringotomy/tubes. colonoscopy. Left breast biopsy. Bilateral cataracts. Left leg wound debridement. Past Anesthesia/Blood Transfusion Reactions: No Reported Reaction Date of Last Stent Placement:: 11/26 Past Psychological History: No Psychological Hx Reported Smoking Status: Former smoker Past Alcohol Use History: Rare Past Drug Use History: None Reported - Past Family History Father Family Medical History: Cancer Additional Family Medical History / Comment(s): COLON CANCER. Mother Family Medical History: Diabetes Mellitus, Renal Disease Additional Family Medical History / Comment(s): RENAL FAILURE. Brother(s) Family Medical History: Cancer Additional Family Medical History / Comment(s): 3 brothers - 2 had stomach cancer, 1 had esophageal cancer. Medications and Allergies Home Medications Medication Instructions Recorded Confirmed Type Pantoprazole Sodium 40 mg PO DAILY 05/08/18 10/12/21 History Famotidine [Pepcid] 20 mg PO HS 06/08/19 10/12/21 History Ferrous Sulfate [Iron (65 MG 325 mg PO DAILY 06/08/19 10/12/21 History Elemental)] Acetaminophen [Tylenol Extra 1,000 mg PO Q6H PRN 03/30/21 10/12/21 History Strength] Ascorbic Acid [Vitamin C] 1,000 mg PO DAILY 03/30/21 10/12/21 History Fluticasone Nasal [place] [Flonase 1 spr EA NOSTRIL DAILY PRN 06/17/21 10/12/21 History Nasal [place]] Apixaban [Eliquis] 2.5 mg PO BID #60 tablet 06/30/21 10/12/21 Rx Furosemide [Lasix] 60 mg PO BID@0900,1500 08/11/21 10/12/21 History Insulin Aspart [NovoLOG Flexpen] See Protocol SQ AC-TID 08/28/21 10/12/21 History Insulin Glargine,Hum.rec.anlog 18 units SQ HS 08/28/21 10/12/21 History [Lantus Solostar Pen] L.acidoph,Paracasei, B.lactis 1 cap PO DAILY 09/29/21 10/12/21 History [Probiotic] carvediloL 12.5 mg PO BID 09/29/21 10/12/21 History Atorvastatin [Lipitor] 80 mg PO HS #90 tab 10/08/21 10/12/21 Rx Clopidogrel [Plavix] 75 mg PO DAILY #90 tab 10/08/21 10/12/21 Rx Cholecalciferol [Vitamin D3 (25 50 mcg PO DAILY 10/12/21 10/12/21 History Mcg = 1000 Iu)] Pregabalin [Lyrica] 100 mg PO BID 10/12/21 10/12/21 History Allergies Allergy/AdvReac Type Severity Reaction Status Date / Time bacitracin Allergy Unknown Verified 10/12/21 11:08 [From Neosporin ([id number])] bacitracin zinc Allergy Unknown Verified 10/12/21 11:08 [From Neosporin (oiv-nls-elbnj)] latex Allergy Rash/Hives Verified 10/12/21 11:08 neomycin sulfate Allergy Unknown Verified 10/12/21 11:08 [From Neosporin ([id number])] Penicillins Allergy Rash & Verified 10/12/21 11:08 Fatigue polymyxin B Allergy Unknown Verified 10/12/21 11:08 [From Neosporin ([id number])] Sulfa (Sulfonamide Allergy Rash & Verified 10/12/21 11:08 Antibiotics) Fatigue Physical Exam Vitals: Vital Signs Temp Pulse Pulse Resp BP BP Pulse Ox 10/13/21 07:36 98.1 F 77 17 106/57 97 10/13/21 07:30 17 10/13/21 03:50 98.5 F 10/13/21 00:23 101 F H 86 16 127/57 96 10/12/21 20:54 101.0 F H 91 18 144/65 95 10/12/21 19:05 18 10/12/21 15:25 99.1 F 97 19 171/76 97 10/12/21 14:12 85 18 156/72 96 10/12/21 12:38 80 18 173/64 100 10/12/21 11:08 99 F 78 18 160/57 98 Intake and Output 10/12/21 10/13/21 10/13/21 22:59 06:59 14:59 Intake Total 600 Output Total 150 Balance -150 600 Intake: Oral 600 Output: Urine 150 Other: Voiding Method External Catheter External Catheter # Voids 1 Results 10/12/21 11:33 10/12/21 11:33 Cardiac Enzymes 10/12/21 10/12/21 Range/Units 11:33 11:33 AST 20 (14-36) U/L Troponin I <0.012 (0.000-0.034) ng/mL Coagulation 10/12/21 Range/Units 11:35 PT 10.2 (9.0-12.0) sec APTT 23.2 (22.0-30.0) sec CBC 10/12/21 Range/Units 11:33 WBC 16.3 H (3.8-10.6) k/uL RBC 3.09 L (3.80-5.40) m/uL Hgb 8.4 L (11.4-16.0) gm/dL Hct 28.0 L (34.0-46.0) % Plt Count 543 H (150-450) k/uL Comprehensive Metabolic Panel 10/12/21 Range/Units 11:33 Sodium 130 L (137-145) mmol/L Potassium 5.5 H (3.5-5.1) mmol/L Chloride 101 (98-107) mmol/L Carbon Dioxide 14 L (22-30) mmol/L BUN 43 H (7-17) mg/dL Creatinine 1.47 H (0.52-1.04) mg/dL Glucose 541 H* (74-99) mg/dL Calcium 8.5 (8.4-10.2) mg/dL AST 20 (14-36) U/L ALT 14 (4-34) U/L Alkaline Phosphatase 141 H (38-126) U/L Total Protein 6.4 (6.3-8.2) g/dL Albumin 3.2 L (3.5-5.0) g/dL Current Medications Generic Name Dose Route Start Last Admin Trade Name Freq PRN Reason Stop Dose Admin Acetaminophen 650 mg 10/12/21 13:52 10/13/21 07:05 Acetaminophen Tab 325 Mg Tab PO 650 mg Q6HR PRN Administration Mild Pain or Fever > 100.5 Apixaban 2.5 mg 10/12/21 21:00 10/12/21 23:44 Apixaban 2.5 Mg Tablet PO Not Given BID [facility] Protocol Ascorbic Acid 1,000 mg 10/13/21 09:00 Ascorbic Acid 500 Mg Tab PO DAILY [facility] Atorvastatin Calcium 80 mg 10/12/21 21:00 10/12/21 23:44 Atorvastatin 80 Mg Tab PO Not Given HS [facility] Carvedilol 12.5 mg 10/12/21 17:30 10/13/21 08:15 Carvedilol 12.5 Mg Tab PO 12.5 mg AC-BID MARYURI Administration Cholecalciferol 50 mcg 10/13/21 09:00 Cholecalciferol 25 Mcg (1000 Iu) Tablet PO DAILY [facility] Clopidogrel Bisulfate 75 mg 10/13/21 09:00 Clopidogrel 75 Mg Tab PO DAILY [facility] Famotidine 20 mg 10/12/21 21:00 10/12/21 23:44 Famotidine 20 Mg Tab PO Not Given HS [facility] Ferrous Sulfate 325 mg 10/13/21 09:00 Ferrous Sulfate 325 Mg Tab PO DAILY [facility] Fluticasone Propionate 1 spray 10/12/21 13:54 Fluticasone 50mcg/[place] Nasal 16gm EA NOSTRIL DAILY PRN Allergy Symptoms Sodium Chloride 1,000 mls @ 50 mls/hr 10/12/21 15:30 10/12/21 16:25 Saline 0.9% IV 50 mls/hr .Q20H MARYURI Administration Cefepime HCl 1 gm/ Sodium 50 mls @ 12.5 mls/hr 10/13/21 19:00 Chloride IVPB Q12H [facility] Insulin Aspart 0 unit 10/12/21 17:30 10/13/21 07:09 Insulin Aspart (Novolog) 100 Unit/Ml Vial SQ Not Given ACHS [facility] Protocol Insulin Aspart 5 unit 10/12/21 17:30 10/13/21 07:09 Insulin Aspart (Novolog) 100 Unit/Ml Vial SQ Not Given AC-TID [facility] Insulin Detemir 18 unit 10/12/21 21:00 10/12/21 20:56 Insulin Detemir (Levemir) 100 Unit/Ml Syr SQ 18 unit HS MARYURI Administration Lactobacillus Acidoph/Bulgaricus 1 each 10/13/21 09:00 Lactobacillus Acidoph & Bulgar 1 Each Packet PO DAILY [facility] Melatonin 3 mg 10/12/21 14:16 Melatonin 3 Mg Tablet PO HS PRN Insomnia Miscellaneous Information 1 each 10/12/21 14:58 Vancomycin Iv Per Pharmacy 1 Each Misc MISCELLANE DIRECTED PRN Per Protocol Protocol Morphine Sulfate 4 mg 10/12/21 14:16 10/12/21 15:19 Morphine Sulfate 4 Mg/Ml Syringe IVP 4 mg Q4HR PRN Administration Severe Pain Naloxone HCl 0.2 mg 10/12/21 14:16 Naloxone 0.4 Mg/Ml 1 Ml Vial IV Q2M PRN Opioid Reversal Pantoprazole Sodium 40 mg 10/13/21 07:30 10/13/21 08:15 Pantoprazole 40 Mg Tablet PO 40 mg [id number] [facility]ARYURI Administration Pregabalin 100 mg 10/12/21 21:00 07/04/22 21:01 Pregabalin 100 Mg Cap PO 100 mg BID [facility] Administration Sodium Bicarbonate 650 mg 10/13/21 09:15 Sodium Bicarbonate Tab 650 Mg Tab PO TID MARYURI Intake and Output 10/12/21 10/13/21 10/13/21 22:59 06:59 14:59 Intake Total 600 Output Total 150 Balance -150 600 Intake: Oral 600 Output: Urine 150 Other: Voiding Method External Catheter External Catheter # Voids 1 10/12/21 11:33 10/12/21 11:33
[2021-10-13] MEDS: CHOLECALCIFEROL 25 MCG (1000 IU) TABLET PO SCH (10:30)
[2021-10-13] MEDS: LACTOBACILLUS ACIDOPH & BULGAR 1 EACH PACKET PO SCH (10:30)
[2021-10-13] MEDS: ASCORBIC ACID 500 MG TAB PO SCH (10:31)
[2021-10-13] MEDS: APIXABAN 2.5 MG TABLET PO SCH (10:31)
[2021-10-13] MEDS: SODIUM BICARBONATE TAB 650 MG TAB PO SCH ×3 (10:31→21:23)
[2021-10-13] MEDS: FERROUS SULFATE 325 MG TAB PO SCH (10:31)
[2021-10-13] MEDS: PREGABALIN 100 MG CAP PO SCH ×2 (10:31→21:20)
--- NOTE | 2021-10-13 10:33 | P.PN ---
Subjective Progress Note Date: 10/13/21 Hospital course: Patient is a very pleasant 81-year-old female with a very complex medical history including coronary disease status post stents, chronic kidney stage III, chronic systolic CHF with previously known EF 40-45%, Anemia of chronic disease, severe peripheral vascular disease with chronic left lower extremity ulceration status post left femoral and popliteal artery arthrectomy on 10/07/21 the patient had left femoral popliteal artery atherectomy. She presented to the emergency department on 10/12/21 with a chief complaint of increased weakness, generalized fatigue, and wound check. In the emergency department patient underwent full evaluation. She was found to have leukocytosis with WBC count of 16.3, anemia with hemoglobin of 8.4, thrombocytosis with platelet count of 543, hyperkalemia with potassium of 5.5, pseudohyponatremia with sodium of 130 and hyperglycemia with glucose of 541. Urinalysis positive for infection. Patient was started on broad-spectrum antibiotics with vancomycin and cefepime and was admitted under our services with sepsis secondary to infected left lower extremity ulcer and urinary tract infection. Physical examination: Patient seen and fully evaluated at bedside this morning. Patient appears to be doing well and reports currently her pain is controlled. Patient reports that she did have a rough night with pain in her left lower leg otherwise denies any complaints at this time. Patient was updated on plan of care and verbalized understanding that she undergoing bilateral lower extremity debridement tomorrow. Patient to remain on broad-spectrum antibiotics with vancomycin and cefepime pending further results of blood and wound cultures. Vital signs reviewed and stable. General: Nontoxic, no distress and appears stated age. Derm: Skin warm and dry, normal coloration for ethnicity. Necrotic ulcer right heel, necrotic left great toe and surrounding region, necrotic ulcer to left heel, large ulceration to left medial surface of lower extremity. Ulceration large approximately 7 x 6 cm with purulent drainage. Head: Atraumatic, normocephalic and symmetric. Eyes: EOMs intact, no lid lag, and anicteric sclera Mouth: no lip lesions, mucus membranes moist Cardiovascular: regular rate and rhythm with normal S1S2, systolic murmur, positive posterior tibial pulses bilaterally, and cap refill < 2 seconds. Lungs: Respirations even, regular, and unlabored on room air. Lungs CTA bilaterally, no rhonchi, no rales, no wheezing, and no accessory muscle usage. Abdominal: soft, nontender to palpation, no guarding, no appreciable organomegaly Ext: ROM intact. No gross muscle atrophy, no edema, no contractures Neuro: Speech clear, face symmetrical and CN II-XII grossly intact with no noted focal neuro deficits Psych: Alert and oriented to person, place, time, and situation. Appropriate and pleasant affect. Assessment and Plan of Care: Infected left leg ulcer with severe sepsis Severe Peripheral vascular disease of left lower extremity status post left femoral and popliteal artery arthrectomy 10/07/21 -Vascular surgery following, planning to take patient for bilateral lower extremity debridement tomorrow morning. -Blood cultures pending -Wound cultures pending -Continue broad-spectrum antibiotics vancomycin and cefepime -Infectious disease consulted -Wound culture -Possible need for amputation was discussed with family. Urinary tract infection -Await urine culture results -Resume antibiotic as above Insulin-dependent diabetes mellitus type 2 -Patient placed on glycemic protocol with NovoLog sliding scale, Levemir 18 units nightly and 6 dose insulin secondary to hyperglycemia 5 units subcu 3 times daily with meals. Diabetic peripheral neuropathy -Resume Lyrica Chronic systolic heart failure EF 40-45% -Resume carvedilol -Hold Lasix due to sepsis -Cardiology following, recommending continued cardiac medication regimen and stating no cardiac contraindications for patient to undergo surgical intervention with vascular surgery. Coronary disease status post stent -Resume carvedilol and statins Paroxysmal A. fib -Normal sinus rhythm -Continue anticoagulation with Eliquis Chronic kidney stage III, stable Mild hyponatremia, resolved -Hold diuretics Dyslipidemia -Resume statins Anemia of chronic disease, stable Debility and deconditioning -Consider PT/OT evaluation when medically stable CODE STATUS: DO NOT RESUSCITATE DVT prophylaxis: Bebeto Discussed with: Patient and RN Anticipated discharge date: Clinical course to determine Anticipated discharge place: Home A total of 39 minutes was spent on the care of this complex patient more than 50% of the time was spent in counseling and care coordination. I reviewed the documentation as provided by the WES above, who is the original author of this note. I agree with the documented assessment and plan, with the following changes: none Objective - Vital Signs Vital signs: Vital Signs Temp 98.1 F 10/13/21 07:36 Pulse 77 10/13/21 07:36 Resp 17 10/13/21 07:36 BP 106/57 10/13/21 07:36 Pulse Ox 97 10/13/21 07:36 FiO2 Intake & Output 10/12/21 10/13/21 10/13/21 18:59 06:59 18:59 Intake Total 600 Output Total 150 Balance -150 600 Weight 77.564 kg Intake: Oral 600 Output: Urine 150 Other: Voiding Method External Catheter External Catheter # Voids 1 - Labs CBC & Chem 7: 10/13/21 10:56 10/13/21 03:46 Labs: Abnormal Lab Results - Last 24 Hours (Table) 10/12/21 10/12/21 10/12/21 Range/Units 11:33 11:33 12:40 WBC 16.3 H (3.8-10.6) k/uL RBC 3.09 L (3.80-5.40) m/uL Hgb 8.4 L (11.4-16.0) gm/dL Hct 28.0 L (34.0-46.0) % MCH (27.0-32.0) pg MCHC 30.1 L (31.0-37.0) g/dL RDW (11.5-14.5) % Plt Count 543 H (150-450) k/uL Plt Count Comment Immature Gran # (0.00-0.04) X 10*3/uL Neutrophils # 14.3 H (1.3-7.7) k/uL Lymphocytes # 0.9 L (1.0-4.8) k/uL Monocytes # (0.20-1.00) X 10*3/uL ESR (0-20) mm/hr Sodium 130 L (137-145) mmol/L Potassium 5.5 H (3.5-5.1) mmol/L Chloride (96-109) mmol/L Carbon Dioxide 14 L (22-30) mmol/L Anion Gap (10.00-18.00) mmol/L BUN 43 H (7-17) mg/dL Creatinine 1.47 H (0.52-1.04) mg/dL Est GFR (CKD-EPI)AfAm (60.0-200.0) Est GFR (CKD-EPI)NonAf (60.0-200.0) BUN/Creatinine Ratio (12.00-20.00) Ratio Glucose 541 H* (74-99) mg/dL POC Glucose (mg/dL) (70-110) mg/dL Calcium (8.7-10.3) mg/dL Alkaline Phosphatase 141 H (38-126) U/L C-Reactive Protein (<1.0) mg/dL Total Protein (6.2-8.2) g/dL Albumin 3.2 L (3.5-5.0) g/dL Albumin/Globulin Ratio (1.60-3.17) g/dL Urine Appearance Cloudy H (Clear) Urine Protein Trace H (Negative) Urine Glucose (UA) 4+ H (Negative) Urine Blood Moderate H (Negative) Ur Leukocyte Esterase Large H (Negative) Urine RBC 17 H (0-5) /hpf Urine WBC 46 H (0-5) /hpf Urine WBC Clumps Few H (None) /hpf Ur Squamous Epith Cells 5 H (0-4) /hpf Urine Bacteria Rare H (None) /hpf Urine Mucus Rare H (None) /hpf 10/12/21 10/12/21 10/12/21 Range/Units 14:11 15:17 15:17 WBC (3.8-10.6) k/uL RBC (3.80-5.40) m/uL Hgb (11.4-16.0) gm/dL Hct (34.0-46.0) % MCH (27.0-32.0) pg MCHC (31.0-37.0) g/dL RDW (11.5-14.5) % Plt Count (150-450) k/uL Plt Count Comment Immature Gran # (0.00-0.04) X 10*3/uL Neutrophils # (1.3-7.7) k/uL Lymphocytes # (1.0-4.8) k/uL Monocytes # (0.20-1.00) X 10*3/uL ESR 114 H (0-20) mm/hr Sodium (137-145) mmol/L Potassium (3.5-5.1) mmol/L Chloride (96-109) mmol/L Carbon Dioxide (22-30) mmol/L Anion Gap (10.00-18.00) mmol/L BUN (7-17) mg/dL Creatinine (0.52-1.04) mg/dL Est GFR (CKD-EPI)AfAm (60.0-200.0) Est GFR (CKD-EPI)NonAf (60.0-200.0) BUN/Creatinine Ratio (12.00-20.00) Ratio Glucose (74-99) mg/dL POC Glucose (mg/dL) 402 H (70-110) mg/dL Calcium (8.7-10.3) mg/dL Alkaline Phosphatase (38-126) U/L C-Reactive Protein 18.6 H (<1.0) mg/dL Total Protein (6.2-8.2) g/dL Albumin (3.5-5.0) g/dL Albumin/Globulin Ratio (1.60-3.17) g/dL Urine Appearance (Clear) Urine Protein (Negative) Urine Glucose (UA) (Negative) Urine Blood (Negative) Ur Leukocyte Esterase (Negative) Urine RBC (0-5) /hpf Urine WBC (0-5) /hpf Urine WBC Clumps (None) /hpf Ur Squamous Epith Cells (0-4) /hpf Urine Bacteria (None) /hpf Urine Mucus (None) /hpf 10/12/21 10/12/21 10/12/21 Range/Units 15:23 16:23 20:15 WBC (3.8-10.6) k/uL RBC (3.80-5.40) m/uL Hgb (11.4-16.0) gm/dL Hct (34.0-46.0) % MCH (27.0-32.0) pg MCHC (31.0-37.0) g/dL RDW (11.5-14.5) % Plt Count (150-450) k/uL Plt Count Comment Immature Gran # (0.00-0.04) X 10*3/uL Neutrophils # (1.3-7.7) k/uL Lymphocytes # (1.0-4.8) k/uL Monocytes # (0.20-1.00) X 10*3/uL ESR (0-20) mm/hr Sodium (137-145) mmol/L Potassium (3.5-5.1) mmol/L Chloride (96-109) mmol/L Carbon Dioxide (22-30) mmol/L Anion Gap (10.00-18.00) mmol/L BUN (7-17) mg/dL Creatinine (0.52-1.04) mg/dL Est GFR (CKD-EPI)AfAm (60.0-200.0) Est GFR (CKD-EPI)NonAf (60.0-200.0) BUN/Creatinine Ratio (12.00-20.00) Ratio Glucose (74-99) mg/dL POC Glucose (mg/dL) 348 H 275 H 280 H (70-110) mg/dL Calcium (8.7-10.3) mg/dL Alkaline Phosphatase (38-126) U/L C-Reactive Protein (<1.0) mg/dL Total Protein (6.2-8.2) g/dL Albumin (3.5-5.0) g/dL Albumin/Globulin Ratio (1.60-3.17) g/dL Urine Appearance (Clear) Urine Protein (Negative) Urine Glucose (UA) (Negative) Urine Blood (Negative) Ur Leukocyte Esterase (Negative) Urine RBC (0-5) /hpf Urine WBC (0-5) /hpf Urine WBC Clumps (None) /hpf Ur Squamous Epith Cells (0-4) /hpf Urine Bacteria (None) /hpf Urine Mucus (None) /hpf 10/13/21 10/13/21 10/13/21 Range/Units 00:40 03:46 03:46 WBC 16.72 H (3.8-10.6) k/uL RBC 2.62 L (3.80-5.40) m/uL Hgb 6.8 L* (11.4-16.0) gm/dL Hct 23.3 L (34.0-46.0) % MCH 26.0 L (27.0-32.0) pg MCHC 29.2 L (31.0-37.0) g/dL RDW 15.5 H (11.5-14.5) % Plt Count 445 H (150-450) k/uL Plt Count Comment INCREASED A Immature Gran # 0.16 H (0.00-0.04) X 10*3/uL Neutrophils # 13.04 H (1.3-7.7) k/uL Lymphocytes # (1.0-4.8) k/uL Monocytes # 1.70 H (0.20-1.00) X 10*3/uL ESR (0-20) mm/hr Sodium (137-145) mmol/L Potassium (3.5-5.1) mmol/L Chloride 111 H (96-109) mmol/L Carbon Dioxide 17.9 L (22-30) mmol/L Anion Gap 9.10 L (10.00-18.00) mmol/L BUN 34.7 H (7-17) mg/dL Creatinine (0.52-1.04) mg/dL Est GFR (CKD-EPI)AfAm 40.5 L (60.0-200.0) Est GFR (CKD-EPI)NonAf 34.9 L (60.0-200.0) BUN/Creatinine Ratio 24.79 H (12.00-20.00) Ratio Glucose 113 H (74-99) mg/dL POC Glucose (mg/dL) 138 H (70-110) mg/dL Calcium 8.6 L (8.7-10.3) mg/dL Alkaline Phosphatase (38-126) U/L C-Reactive Protein (<1.0) mg/dL Total Protein 5.6 L (6.2-8.2) g/dL Albumin 2.7 L (3.5-5.0) g/dL Albumin/Globulin Ratio 0.93 L (1.60-3.17) g/dL Urine Appearance (Clear) Urine Protein (Negative) Urine Glucose (UA) (Negative) Urine Blood (Negative) Ur Leukocyte Esterase (Negative) Urine RBC (0-5) /hpf Urine WBC (0-5) /hpf Urine WBC Clumps (None) /hpf Ur Squamous Epith Cells (0-4) /hpf Urine Bacteria (None) /hpf Urine Mucus (None) /hpf 10/13/21 Range/Units 07:05 WBC (3.8-10.6) k/uL RBC (3.80-5.40) m/uL Hgb (11.4-16.0) gm/dL Hct (34.0-46.0) % MCH (27.0-32.0) pg MCHC (31.0-37.0) g/dL RDW (11.5-14.5) % Plt Count (150-450) k/uL Plt Count Comment Immature Gran # (0.00-0.04) X 10*3/uL Neutrophils # (1.3-7.7) k/uL Lymphocytes # (1.0-4.8) k/uL Monocytes # (0.20-1.00) X 10*3/uL ESR (0-20) mm/hr Sodium (137-145) mmol/L Potassium (3.5-5.1) mmol/L Chloride (96-109) mmol/L Carbon Dioxide (22-30) mmol/L Anion Gap (10.00-18.00) mmol/L BUN (7-17) mg/dL Creatinine (0.52-1.04) mg/dL Est GFR (CKD-EPI)AfAm (60.0-200.0) Est GFR (CKD-EPI)NonAf (60.0-200.0) BUN/Creatinine Ratio (12.00-20.00) Ratio Glucose (74-99) mg/dL POC Glucose (mg/dL) 60 L (70-110) mg/dL Calcium (8.7-10.3) mg/dL Alkaline Phosphatase (38-126) U/L C-Reactive Protein (<1.0) mg/dL Total Protein (6.2-8.2) g/dL Albumin (3.5-5.0) g/dL Albumin/Globulin Ratio (1.60-3.17) g/dL Urine Appearance (Clear) Urine Protein (Negative) Urine Glucose (UA) (Negative) Urine Blood (Negative) Ur Leukocyte Esterase (Negative) Urine RBC (0-5) /hpf Urine WBC (0-5) /hpf Urine WBC Clumps (None) /hpf Ur Squamous Epith Cells (0-4) /hpf Urine Bacteria (None) /hpf Urine Mucus (None) /hpf Microbiology - Last 24 Hours (Table) 10/12/21 16:50 Gram Stain - Preliminary Leg - Left Wound Culture - Preliminary 10/12/21 16:50 Anaerobic Culture - Preliminary Leg - Left 10/12/21 12:40 Urine Culture - Preliminary Urine,Voided
[2021-10-13] MEDS: MORPHINE SULFATE 4 MG/ML SYRINGE IVP PRN ×2 (10:50→15:42)
[2021-10-13] MEDS: MAGNESIUM SULFATE-D5W PMX 1 GM in DEXTROSE/WATER 1 100ML.BAG IVPB SCH ×2 (11:11→12:33)
[2021-10-13] MEDS: SODIUM CHLORIDE 0.9% 1,000 ML IV SCH (11:13)
[2021-10-13 11:15] LABS: Glucose,Whole Blood 185 mg/dL (70-110)
[2021-10-13 11:44] LABS: HCT 28.1 % (34.0-46.0); HGB 8.5 gm/dL (11.4-16.0); Hypochromasia Marked; MCH 27.7 pg (25.0-35.0); MCHC 30.2 g/dL (31.0-37.0); MCV 91.8 fL (80.0-100.0); Mean Platelet Volume 8.3; Platelet Count 470 k/uL (150-450); RBC 3.06 m/uL (3.80-5.40); RDW 14.7 % (11.5-15.5); WBC 16.1 k/uL (3.8-10.6)
[2021-10-13 12:00] LABS: HGB 6.8 g/dL (12.0-15.0)
[2021-10-13 14:21] LABS: Ferritin 84.8 ng/mL (10.0-291.0)
[2021-10-13 14:45] LABS: % Iron Saturation 2.15 (12.00-45.00)
[2021-10-13] MEDS ORDERED: VANCOMYCIN 1,250 MG in SODIUM CHLORIDE 0.9% 250 ML IVPB ONE (16:00)
[2021-10-13 16:23] LABS: Glucose,Whole Blood 201 mg/dL (70-110)
[2021-10-13 20:12] LABS: Glucose,Whole Blood 171 mg/dL (70-110)
[2021-10-13] MEDS ORDERED: ACETAMINOPHEN IV (For NPO) 1,000 MG in EMPTY BAG 1 BAG IVPB ONE (21:00)
[2021-10-13] MEDS: CEFEPIME 1 GM in SODIUM CHLORIDE 0.9% 50 ML IVPB SCH (21:14)
[2021-10-13] MEDS: INSULIN DETEMIR (LEVEMIR) 100 UNIT/ML SYR SQ SCH (21:20)
[2021-10-13] MEDS: FAMOTIDINE 20 MG TAB PO SCH (21:20)
[2021-10-13] MEDS: ATORVASTATIN 80 MG TAB PO SCH (21:20)
[2021-10-14] MEDS: MORPHINE SULFATE 4 MG/ML SYRINGE IVP PRN ×2 (04:24→23:17)
[2021-10-14 07:20] LABS: Glucose,Whole Blood 88 mg/dL (70-110)
[2021-10-14 07:25] LABS: African American GFR (CKD) 46 (>60 ml/min/1.73 sqM); Anion Gap 10 mmol/L; Blood Urea Nitrogen 40 mg/dL (7-17); Calcium 8.5 mg/dL (8.4-10.2); Carbon Dioxide 15 mmol/L (22-30); Chloride 115 mmol/L (98-107); Glucose 86 mg/dL (74-99); Magnesium 2.6 mg/dL (1.6-2.3); Non-African American GFR(CKD) 40 (>60 ml/min/1.73 sqM); Sodium 140 mmol/L (137-145)
[2021-10-14 07:47] LABS: Vancomycin,Random 19.8 ug/mL
[2021-10-14] MEDS: INSULIN ASPART (NovoLOG) 100 UNIT/ML VIAL SQ SCH ×7 (08:47→21:46)
[2021-10-14] MEDS: SODIUM CHLORIDE 0.9% 1,000 ML IV SCH (08:48)
[2021-10-14] MEDS: PANTOPRAZOLE 40 MG TABLET PO SCH (08:48)
[2021-10-14] MEDS: LACTOBACILLUS ACIDOPH & BULGAR 1 EACH PACKET PO SCH (08:49)
[2021-10-14] MEDS: ASCORBIC ACID 500 MG TAB PO SCH (08:49)
[2021-10-14] MEDS: FERROUS SULFATE 325 MG TAB PO SCH (08:49)
[2021-10-14] MEDS: SODIUM BICARBONATE TAB 650 MG TAB PO SCH ×2 (08:49→16:29)
[2021-10-14] MEDS: CHOLECALCIFEROL 25 MCG (1000 IU) TABLET PO SCH (08:49)
[2021-10-14] MEDS: PREGABALIN 100 MG CAP PO SCH ×2 (08:53→21:46)
[2021-10-14] MEDS: CEFEPIME 1 GM in SODIUM CHLORIDE 0.9% 50 ML IVPB SCH ×2 (08:53→19:39)
[2021-10-14] MEDS: carvediloL 12.5 MG TAB PO SCH ×2 (08:53→16:31)
[2021-10-14] MEDS ORDERED: SODIUM BICARB 8.4% 50 ML SYR (1 MEQ/ML) IV STA ×2 (10:00→11:27)
[2021-10-14] MEDS ORDERED: DEXTROSE 50% SYRINGE 50 ML IVP STA ×2 (10:00→11:43)
[2021-10-14] MEDS ORDERED: LORazepam 1 MG/0.5 ML VIAL IV PRN (10:05)
[2021-10-14] MEDS ORDERED: LORazepam 0.5 MG TAB PO PRN (10:07)
[2021-10-14] MEDS ORDERED: CALCIUM GLUCONATE IN NACL 2 GM in SALINE 1 100ML.BAG IVPB ONE (10:15)
[2021-10-14] MEDS ORDERED: SODIUM ZIRCONIUM CYCLOSILICATE 10 GM PACKET PO ONE (10:15)
[2021-10-14] MEDS ORDERED: INSULIN REGULAR 100 UNIT/ML VIAL (IV) IV ONE (10:15)
--- NOTE | 2021-10-14 11:29 | P.PN ---
Subjective Patient is seen in follow-up for acute kidney injury on chronic disease. Renal function better. Potassium 6.0 today. Patient is quite confused and moaning. is present at bedside. Has a Triana catheter. Nonoliguric. Vital signs are stable. General: Resting in bed. Confused. HEENT: Head exam is unremarkable. LUNGS: Breath sounds decreased. HEART: Rate and Rhythm are regular. ABDOMEN: Soft, nontender. No distention. EXTREMITITES: Trace edema right lower extremity. Left lower extremity wrapped. No drainage. Objective - Vital Signs Vital signs: Vital Signs Temp 98.4 F 10/14/21 07:14 Pulse 77 10/14/21 07:14 Resp 20 10/14/21 07:14 BP 124/48 10/14/21 07:14 Pulse Ox 95 10/14/21 08:00 FiO2 Intake & Output 10/13/21 10/14/21 10/14/21 18:59 06:59 18:59 Intake Total 600 Output Total 800 500 Balance -200 -500 Intake: Oral 600 Output: Urine 800 500 Uretheral (Triana) 800 Other: Voiding Method External Catheter Indwelling Catheter # Voids 200 - Labs CBC & Chem 7: 10/13/21 10:56 10/14/21 06:12 Labs: Abnormal Lab Results - Last 24 Hours (Table) 10/13/21 10/13/21 10/13/21 Range/Units 03:46 03:46 10:56 WBC 16.1 H (3.8-10.6) k/uL RBC 3.06 L (3.80-5.40) m/uL Hgb 6.8 L* 8.5 L (12.0-15.0) g/dL Hct 28.1 L (34.0-46.0) % MCHC 30.2 L (31.0-37.0) g/dL Plt Count 470 H (150-450) k/uL Potassium (3.5-5.1) mmol/L Chloride (98-107) mmol/L Carbon Dioxide (22-30) mmol/L BUN (7-17) mg/dL Creatinine (0.52-1.04) mg/dL POC Glucose (mg/dL) (70-110) mg/dL Hemoglobin A1c (0.0-6.0) % Magnesium (1.6-2.3) mg/dL Iron 5 L (50-170) ug/dL % Saturation 2.15 L (12.00-45.00) Transferrin 177.0 L (204.0-354.0) mg/dL 10/13/21 10/13/21 10/13/21 Range/Units 10:56 16:22 20:09 WBC (3.8-10.6) k/uL RBC (3.80-5.40) m/uL Hgb (12.0-15.0) g/dL Hct (34.0-46.0) % MCHC (31.0-37.0) g/dL Plt Count (150-450) k/uL Potassium (3.5-5.1) mmol/L Chloride (98-107) mmol/L Carbon Dioxide (22-30) mmol/L BUN (7-17) mg/dL Creatinine (0.52-1.04) mg/dL POC Glucose (mg/dL) 201 H 171 H (70-110) mg/dL Hemoglobin A1c 8.9 H (0.0-6.0) % Magnesium (1.6-2.3) mg/dL Iron (50-170) ug/dL % Saturation (12.00-45.00) Transferrin (204.0-354.0) mg/dL 10/14/21 Range/Units 06:12 WBC (3.8-10.6) k/uL RBC (3.80-5.40) m/uL Hgb (12.0-15.0) g/dL Hct (34.0-46.0) % MCHC (31.0-37.0) g/dL Plt Count (150-450) k/uL Potassium 6.0 H (3.5-5.1) mmol/L Chloride 115 H (98-107) mmol/L Carbon Dioxide 15 L (22-30) mmol/L BUN 40 H (7-17) mg/dL Creatinine 1.26 H (0.52-1.04) mg/dL POC Glucose (mg/dL) (70-110) mg/dL Hemoglobin A1c (0.0-6.0) % Magnesium 2.6 H (1.6-2.3) mg/dL Iron (50-170) ug/dL % Saturation (12.00-45.00) Transferrin (204.0-354.0) mg/dL Microbiology - Last 24 Hours (Table) 10/12/21 16:50 Gram Stain - Preliminary Leg - Left Wound Culture - Preliminary Gram Neg Bacilli 10/12/21 12:40 Urine Culture - Preliminary Urine,Voided Gram Neg Bacilli 10/12/21 11:35 Blood Culture - Preliminary Blood No Growth after 24 hours 10/12/21 11:48 Blood Culture - Preliminary Blood No Growth after 24 hours Assessment and Plan Plan: Assessment: 1. Acute kidney injury mostly prerenal secondary to infection and hyperglycemia. Creatinine 1.47 on admission - 1.26 today. Kidney ultrasound from June 2021 showed no evidence of hydronephrosis. 2. Chronic kidney disease stage IIIA with baseline creatinine in the range of 1.2-1.4 secondary to prior acute kidney injury episodes as well as diabetic kidney disease. 3. Left lower extremity wounds. Scheduled for debridement today. Wound culture positive for gram-negative bacilli. 4. Hyperkalemia secondary to acute kidney injury and metabolic acidosis. 5. Metabolic acidosis secondary to acute kidney injury and IV fluids. Acetone negative. 6. Hypotonic hyponatremia secondary to hyperglycemia. Improved. 7. Anemia of chronic kidney disease. Iron deficiency noted. 8. Diabetes mellitus. 9. Chronic systolic CHF with ejection fraction of 40-45% with mild to moderate tricuspid regurgitation and moderate pulmonary hypertension. Plan: Stop normal saline. Start bicarb drip at 50 cc/hr. Blood sugar control. Maintain oral bicarb. Avoid nephrotoxins, incl nsaids. Antibiotics per infectious disease. Continue to monitor renal function and urine output. Add IV iron. 1 g IV calcium gluconate, 10 units IV insulin with an amp of D50, 2 A of sodium bicarb IV push and 10 g lokelma now. Repeat potassium level in 2 hours. Discussed with nurse. Family considering home with hospice post discharge.
[2021-10-14 11:38] LABS: Glucose,Whole Blood 54 mg/dL (70-110)
[2021-10-14] MEDS ORDERED: DEXTROSE 50% SYRINGE 50 ML IVP ONE (11:42)
[2021-10-14] MEDS ORDERED: DEXTROSE 5% IN WATER 1,000 ML with SODIUM BICARB (1 MEQ/ML) 150 ML IV SCH (12:00)
[2021-10-14 12:03] LABS: Glucose,Whole Blood 73 mg/dL (70-110)
[2021-10-14 13:19] LABS: Glucose,Whole Blood 74 mg/dL (70-110)
--- NOTE | 2021-10-14 13:40 | P.PN ---
Progress Note - Text Progress Note Date: 10/14/21 Patient seen and examined in the preoperative area. Awaiting repeat labs prior to going forward with the surgery as patient had hyperkalemia this morning. We discussed that during the surgery she'll become full code and resume her status after the procedure. She and her family seemingly understand this are willing to proceed. They are discussing possibly going forward with hospice care but are not certain at this time.
[2021-10-14] MEDS ORDERED: LACTATED RINGERS 1,000 ML IV ONE (13:41)
[2021-10-14 14:08] LABS: Glucose,Whole Blood 79 mg/dL (70-110)
[2021-10-14] MEDS ORDERED: PROPOFOL 10 MG/ML 20 ML VIAL IV ONE (14:10)
[2021-10-14] MEDS ORDERED: fentaNYL (PF) 50 MCG/ML 2 ML AMP ONE (14:10)
[2021-10-14] MEDS ORDERED: WATER FOR INJECTION, STERILE 10 ML VIAL IV ONE (14:10)
[2021-10-14] MEDS ORDERED: MIDAZOLAM 2 MG/2 ML VIAL ONE (14:10)
[2021-10-14] MEDS ORDERED: ePHEDrine 50 MG/ML 1 ML VIAL ONE (14:10)
[2021-10-14] MEDS ORDERED: PHENYLEPHRINE-0.9% NACL SYG 1,000 MCG/10 ML SYRINGE ONE (14:10)
[2021-10-14] MEDS ORDERED: KETAMINE 10 MG/ML 20 ML VIAL ONE (14:10)
[2021-10-14 15:27] LABS: Glucose,Whole Blood 92 mg/dL (70-110)
--- NOTE | 2021-10-14 15:38 | P.OP ---
Date of Procedure: 10/14/21 Description of Procedure: Preoperative diagnosis: [Nonhealing lower extremity wounds, peripheral arterial disease,] Postoperative diagnosis: Same Procedure: [Sharp excisional debridement of left lower extremity wounds #1 medial calf 8 x 6 x 0.7 cm to muscle #2 distal calf 12 x 8 x 0.2 cm to dermis #3 lateral calf 14 x 6 x 0.2 cm to subcutaneous tissue #4 left heel 5 x 6 x 0.3 cm to subcutaneous fat #5 left lateral foot 5 x 3 x 0.2 cm to subcutaneous fat] Surgeon: Francoise Triana D.O. EBL: 15 mL] IV fluids: [See records] Urine output: [See records] Drains: [None] Complications: [None immediately apparent] Condition: [Stable to recovery] Operative indication and findings: [Patient is 7-year-old female but continue nonhealing left lower extremity wound previously underwent intervention for her peripheral arterial disease. She has been doing relatively well but came to the hospital with increasing is a lethargy and was found to have an urinary tract infection as well as bacteria at her wound. Given the foul-smelling, it was decided to take the patient to the operating room especially for the level of the heel wound. Risks and benefits were discussed. She seemingly understood and was willing to proceed] Procedure in detail: [Patient was taken the operative suite and placed in supine position. Left lower extremity is prepped and draped in usual sterile fashion. A preprocedure timeout was performed, all parties were in agreement. Curettes and scalpels were used to debride the multiple wounds. The larger wound of the medial calf appeared healthy without any significant drainage. The biggest concern was the wounds at the left lateral heel and lateral foot. The necrotic tissue was unroofed and there was significant foul-smelling area. This was cultured. A surgical sponge was used to debride the majority of the other tissues. The nail was avulsed from the great toe relatively easily as there is significant dry gangrene of the great toe as well the measurements are as above. The areas then copiously irrigated. Dakin's wet-to-dry dressing was placed at the heel and lateral foot. Patient was transferred to PACU in stable condition and tolerated the procedure well]
--- NOTE | 2021-10-14 17:16 | P.PN ---
Subjective Progress Note Date: 10/14/21 Hospital course: Patient is a very pleasant 81-year-old female with a very complex medical history including coronary disease status post stents, chronic kidney stage III, chronic systolic CHF with previously known EF 40-45%, Anemia of chronic disease, severe peripheral vascular disease with chronic left lower extremity ulceration status post left femoral and popliteal artery arthrectomy on 10/07/21 the patient had left femoral popliteal artery atherectomy. She presented to the emergency department on 10/12/21 with a chief complaint of increased weakness, generalized fatigue, and wound check. In the emergency department patient underwent full evaluation. She was found to have leukocytosis with WBC count of 16.3, anemia with hemoglobin of 8.4, thrombocytosis with platelet count of 543, hyperkalemia with potassium of 5.5, pseudohyponatremia with sodium of 130 and hyperglycemia with glucose of 541. Urinalysis positive for infection. Patient was started on broad-spectrum antibiotics with vancomycin and cefepime and was admitted under our services with sepsis secondary to infected left lower extremity ulcer and urinary tract infection. Physical examination: Patient seen and fully evaluated at bedside this morning. Patient tearful this morning and reports feeling very anxious regarding pending surgery. Order placed for Ativan 0.5 mg every 6 hours as needed for anxiety. Patient also with hyperkalemia this morning with potassium of 6.0. Order placed for hyperkalemia cocktail consisting of Lokelma, bicarb, calcium gluconate, insulin, and dextrose. Repeat potassium 4.9 prior to patient being taken down for bilateral lower extremity debridement. Vital signs reviewed and stable. General: Nontoxic, no distress and appears stated age. Derm: Skin warm and dry, normal coloration for ethnicity. Necrotic ulcer right heel, necrotic left great toe and surrounding region, necrotic ulcer to left heel, large ulceration to left medial surface of lower extremity. Ulceration large approximately 7 x 6 cm with purulent drainage. Head: Atraumatic, normocephalic and symmetric. Eyes: EOMs intact, no lid lag, and anicteric sclera Mouth: no lip lesions, mucus membranes moist Cardiovascular: regular rate and rhythm with normal S1S2, systolic murmur, positive posterior tibial pulses bilaterally, and cap refill < 2 seconds. Lungs: Respirations even, regular, and unlabored on room air. Lungs CTA bilaterally, no rhonchi, no rales, no wheezing, and no accessory muscle usage. Abdominal: soft, nontender to palpation, no guarding, no appreciable organomegaly Ext: ROM intact. No gross muscle atrophy, no edema, no contractures Neuro: Speech clear, face symmetrical and CN II-XII grossly intact with no noted focal neuro deficits Psych: Alert and oriented to person, place, time, and situation. Appropriate and pleasant affect. Assessment and Plan of Care: Infected left leg ulcer with severe sepsis Severe Peripheral vascular disease of left lower extremity status post left femoral and popliteal artery arthrectomy 10/07/21 -Vascular surgery following, planning to take patient for bilateral lower extremity debridement tomorrow morning. -Blood cultures pending -Wound cultures pending -Continue broad-spectrum antibiotics vancomycin and cefepime -Infectious disease consulted -Wound culture -Possible need for amputation was discussed with family. Hyperkalemia -Potassium 6.0 this morning. Patient given hyperkalemia cocktail with repeat potassium 4.9 prior to going down for surgery. -Continuous Telemetry monitoring Urinary tract infection -Await urine culture results -Resume antibiotic as above Insulin-dependent diabetes mellitus type 2 -Patient placed on glycemic protocol with NovoLog sliding scale, Levemir 18 units nightly and 6 dose insulin secondary to hyperglycemia 5 units subcu 3 times daily with meals. Diabetic peripheral neuropathy -Resume Lyrica Chronic systolic heart failure EF 40-45% -Resume carvedilol -Hold Lasix due to sepsis -Cardiology following, recommending continued cardiac medication regimen and stating no cardiac contraindications for patient to undergo surgical intervention with vascular surgery. Coronary disease status post stent -Resume carvedilol and statins Paroxysmal A. fib -Normal sinus rhythm -Continue anticoagulation with Eliquis Chronic kidney stage III, stable Mild hyponatremia, resolved -Hold diuretics Dyslipidemia -Resume statins Anemia of chronic disease, stable Debility and deconditioning -Consider PT/OT evaluation when medically stable CODE STATUS: DO NOT RESUSCITATE DVT prophylaxis: Bebeto Discussed with: Patient , dental lab technician and RN Anticipated discharge date: Clinical course to determine Anticipated discharge place: Home A total of 40 minutes was spent on the care of this complex patient more than 50% of the time was spent in counseling and care coordination. Konrad Alegre NP rendered care for this patient independently, reviewed the findings and plan as documented in the note above. I did not physically speak with or examine the patient on this date. Objective - Vital Signs Vital signs: Vital Signs Temp 98.4 F 10/14/21 07:14 Pulse 77 10/14/21 07:14 Resp 20 10/14/21 07:14 BP 124/48 10/14/21 07:14 Pulse Ox 95 10/14/21 08:00 FiO2 Intake & Output 10/13/21 10/14/21 10/14/21 18:59 06:59 18:59 Intake Total 600 Output Total 800 500 Balance -200 -500 Intake: Oral 600 Output: Urine 800 500 Uretheral (Triana) 800 Other: Voiding Method External Catheter Indwelling Catheter # Voids 200 - Labs CBC & Chem 7: 10/13/21 10:56 10/14/21 13:35 Labs: Abnormal Lab Results - Last 24 Hours (Table) 10/13/21 10/13/21 10/13/21 Range/Units 03:46 03:46 03:46 WBC 16.72 H (4.50-10.00) X 10*3/uL RBC 2.62 L (4.10-5.20) X 10*6/uL Hgb 6.8 L* (12.0-15.0) g/dL Hct 23.3 L (37.2-46.3) % MCH 26.0 L (27.0-32.0) pg MCHC 29.2 L (32.0-37.0) g/dL RDW 15.5 H (11.5-14.5) % Plt Count 445 H (140-440) X 10*3/uL Plt Count Comment INCREASED A Immature Gran # 0.16 H (0.00-0.04) X 10*3/uL Neutrophils # 13.04 H (1.80-7.70) X 10*3/uL Monocytes # 1.70 H (0.20-1.00) X 10*3/uL Potassium (3.5-5.1) mmol/L Chloride 111 H (96-109) mmol/L Carbon Dioxide 17.9 L (20.0-27.5) mmol/L Anion Gap 9.10 L (10.00-18.00) mmol/L BUN 34.7 H (9.0-27.0) mg/dL Creatinine (0.52-1.04) mg/dL Est GFR (CKD-EPI)AfAm 40.5 L (60.0-200.0) Est GFR (CKD-EPI)NonAf 34.9 L (60.0-200.0) BUN/Creatinine Ratio 24.79 H (12.00-20.00) Ratio Glucose 113 H (70-110) mg/dL POC Glucose (mg/dL) (70-110) mg/dL Hemoglobin A1c (0.0-6.0) % Calcium 8.6 L (8.7-10.3) mg/dL Magnesium (1.6-2.3) mg/dL Iron 5 L (50-170) ug/dL % Saturation 2.15 L (12.00-45.00) Transferrin 177.0 L (204.0-354.0) mg/dL Total Protein 5.6 L (6.2-8.2) g/dL Albumin 2.7 L (3.8-4.9) g/dL Albumin/Globulin Ratio 0.93 L (1.60-3.17) g/dL 10/13/21 10/13/21 10/13/21 Range/Units 10:56 10:56 11:12 WBC 16.1 H (4.50-10.00) X 10*3/uL RBC 3.06 L (4.10-5.20) X 10*6/uL Hgb 8.5 L (12.0-15.0) g/dL Hct 28.1 L (37.2-46.3) % MCH (27.0-32.0) pg MCHC 30.2 L (32.0-37.0) g/dL RDW (11.5-14.5) % Plt Count 470 H (140-440) X 10*3/uL Plt Count Comment Immature Gran # (0.00-0.04) X 10*3/uL Neutrophils # (1.80-7.70) X 10*3/uL Monocytes # (0.20-1.00) X 10*3/uL Potassium (3.5-5.1) mmol/L Chloride (96-109) mmol/L Carbon Dioxide (20.0-27.5) mmol/L Anion Gap (10.00-18.00) mmol/L BUN (9.0-27.0) mg/dL Creatinine (0.52-1.04) mg/dL Est GFR (CKD-EPI)AfAm (60.0-200.0) Est GFR (CKD-EPI)NonAf (60.0-200.0) BUN/Creatinine Ratio (12.00-20.00) Ratio Glucose (70-110) mg/dL POC Glucose (mg/dL) 185 H (70-110) mg/dL Hemoglobin A1c 8.9 H (0.0-6.0) % Calcium (8.7-10.3) mg/dL Magnesium (1.6-2.3) mg/dL Iron (50-170) ug/dL % Saturation (12.00-45.00) Transferrin (204.0-354.0) mg/dL Total Protein (6.2-8.2) g/dL Albumin (3.8-4.9) g/dL Albumin/Globulin Ratio (1.60-3.17) g/dL 10/13/21 10/13/21 10/14/21 Range/Units 16:22 20:09 06:12 WBC (4.50-10.00) X 10*3/uL RBC (4.10-5.20) X 10*6/uL Hgb (12.0-15.0) g/dL Hct (37.2-46.3) % MCH (27.0-32.0) pg MCHC (32.0-37.0) g/dL RDW (11.5-14.5) % Plt Count (140-440) X 10*3/uL Plt Count Comment Immature Gran # (0.00-0.04) X 10*3/uL Neutrophils # (1.80-7.70) X 10*3/uL Monocytes # (0.20-1.00) X 10*3/uL Potassium 6.0 H (3.5-5.1) mmol/L Chloride 115 H (96-109) mmol/L Carbon Dioxide 15 L (20.0-27.5) mmol/L Anion Gap (10.00-18.00) mmol/L BUN 40 H (9.0-27.0) mg/dL Creatinine 1.26 H (0.52-1.04) mg/dL Est GFR (CKD-EPI)AfAm (60.0-200.0) Est GFR (CKD-EPI)NonAf (60.0-200.0) BUN/Creatinine Ratio (12.00-20.00) Ratio Glucose (70-110) mg/dL POC Glucose (mg/dL) 201 H 171 H (70-110) mg/dL Hemoglobin A1c (0.0-6.0) % Calcium (8.7-10.3) mg/dL Magnesium 2.6 H (1.6-2.3) mg/dL Iron (50-170) ug/dL % Saturation (12.00-45.00) Transferrin (204.0-354.0) mg/dL Total Protein (6.2-8.2) g/dL Albumin (3.8-4.9) g/dL Albumin/Globulin Ratio (1.60-3.17) g/dL Microbiology - Last 24 Hours (Table) 10/12/21 16:50 Gram Stain - Preliminary Leg - Left Wound Culture - Preliminary Gram Neg Bacilli 10/12/21 12:40 Urine Culture - Preliminary Urine,Voided Gram Neg Bacilli 10/12/21 11:35 Blood Culture - Preliminary Blood No Growth after 24 hours 10/12/21 11:48 Blood Culture - Preliminary Blood No Growth after 24 hours
[2021-10-14] MEDS: SODIUM FERRIC GLUCONAT-SUCROSE 125 MG in SODIUM CHLORIDE 0.9% 100 ML IVPB SCH (17:22)
[2021-10-14] MEDS ORDERED: VANCOMYCIN 1,250 MG in SODIUM CHLORIDE 0.9% 250 ML IVPB ONE (18:00)
[2021-10-14 21:21] LABS: Glucose,Whole Blood 70 mg/dL (70-110)
[2021-10-14] MEDS: ACETAMINOPHEN TAB 325 MG TAB PO PRN (21:45)
[2021-10-14] MEDS: FAMOTIDINE 20 MG TAB PO SCH (21:45)
[2021-10-14] MEDS: INSULIN DETEMIR (LEVEMIR) 100 UNIT/ML SYR SQ SCH (21:46)
[2021-10-14] MEDS: ATORVASTATIN 80 MG TAB PO SCH (21:46)
[2021-10-15] MEDS: SODIUM BICARBONATE TAB 650 MG TAB PO SCH ×2 (00:53→08:03)
[2021-10-15 02:24] LABS: Glucose,Whole Blood 112 mg/dL (70-110)
[2021-10-15 06:56] LABS: HGB 7.9 gm/dL (11.4-16.0); Hypochromasia Marked; MCH 27.4 pg (25.0-35.0); MCHC 30.5 g/dL (31.0-37.0); MCV 89.7 fL (80.0-100.0); Mean Platelet Volume 8.7; Platelet Count 508 k/uL (150-450); RBC 2.89 m/uL (3.80-5.40); RDW 14.8 % (11.5-15.5); WBC 18.8 k/uL (3.8-10.6)
[2021-10-15 07:24] LABS: Glucose,Whole Blood 160 mg/dL (70-110)
[2021-10-15] MEDS: INSULIN ASPART (NovoLOG) 100 UNIT/ML VIAL SQ SCH ×2 (08:01→08:02)
[2021-10-15] MEDS: carvediloL 12.5 MG TAB PO SCH (08:02)
[2021-10-15] MEDS: PANTOPRAZOLE 40 MG TABLET PO SCH (08:02)
[2021-10-15] MEDS: LACTOBACILLUS ACIDOPH & BULGAR 1 EACH PACKET PO SCH (08:03)
[2021-10-15] MEDS: ASCORBIC ACID 500 MG TAB PO SCH (08:03)
[2021-10-15] MEDS: PREGABALIN 100 MG CAP PO SCH (08:03)
[2021-10-15] MEDS: CHOLECALCIFEROL 25 MCG (1000 IU) TABLET PO SCH (08:03)
[2021-10-15] MEDS: FERROUS SULFATE 325 MG TAB PO SCH (08:03)
[2021-10-15] MEDS: CEFEPIME 1 GM in SODIUM CHLORIDE 0.9% 50 ML IVPB SCH (08:06)
--- NOTE | 2021-10-15 09:01 | P.PN ---
Subjective Progress Note Date: 10/13/21 Principal diagnosis: left lower extremity wound and cellulitis Patient is 81 year old female with a past medical history significant for left PAD in this patient with a recent percutaneous intervention for a nonhealing wound subsequent to present to the hospital with worsening pain to the left leg wound concerning for ischemia and possible cellulitis. On today's evaluation that is 10/13/2021, the patient did spike a fever of 101F after midnight, asymptomatic no significant pain to the left leg area, the patient denies having any chest pain or shortness of breath or cough no abdominal pain or any diarrhea Objective - Vital Signs Vital signs: Vital Signs Temp 98.6 F 10/13/21 15:38 Pulse 64 10/13/21 15:38 Resp 21 10/13/21 15:38 BP 127/68 10/13/21 15:38 Pulse Ox 94 L 10/13/21 15:38 FiO2 Intake & Output 10/12/21 10/13/21 10/13/21 18:59 06:59 18:59 Intake Total 600 Output Total 150 800 Balance -150 -200 Weight 77.564 kg Intake: Oral 600 Output: Urine 150 800 Uretheral (Triana) 800 Other: Voiding Method External Catheter External Catheter # Voids 1 - Exam GENERAL DESCRIPTION: An elderly female lying in bed in no distress RESPIRATORY SYSTEM: Unlabored breathing , decreased breath sounds at bases HEART: S1 S2 regular rate and rhythm , ABDOMEN: Soft , no tenderness EXTREMITIES: Left leg wound is currently dressed no drainage on the dressing - Labs CBC & Chem 7: 10/15/21 06:22 10/14/21 13:35 Labs: Abnormal Lab Results - Last 24 Hours (Table) 10/12/21 10/12/21 10/13/21 Range/Units 15:17 20:15 00:40 WBC (4.50-10.00) X 10*3/uL RBC (4.10-5.20) X 10*6/uL Hgb (12.0-15.0) g/dL Hct (37.2-46.3) % MCH (27.0-32.0) pg MCHC (32.0-37.0) g/dL RDW (11.5-14.5) % Plt Count (140-440) X 10*3/uL Plt Count Comment Immature Gran # (0.00-0.04) X 10*3/uL Neutrophils # (1.80-7.70) X 10*3/uL Monocytes # (0.20-1.00) X 10*3/uL ESR 114 H (0-20) mm/hr Chloride (96-109) mmol/L Carbon Dioxide (20.0-27.5) mmol/L Anion Gap (10.00-18.00) mmol/L BUN (9.0-27.0) mg/dL Est GFR (CKD-EPI)AfAm (60.0-200.0) Est GFR (CKD-EPI)NonAf (60.0-200.0) BUN/Creatinine Ratio (12.00-20.00) Ratio Glucose (70-110) mg/dL POC Glucose (mg/dL) 280 H 138 H (70-110) mg/dL Calcium (8.7-10.3) mg/dL Iron (50-170) ug/dL % Saturation (12.00-45.00) Transferrin (204.0-354.0) mg/dL Total Protein (6.2-8.2) g/dL Albumin (3.8-4.9) g/dL Albumin/Globulin Ratio (1.60-3.17) g/dL 10/13/21 10/13/21 10/13/21 Range/Units 03:46 03:46 03:46 WBC 16.72 H (4.50-10.00) X 10*3/uL RBC 2.62 L (4.10-5.20) X 10*6/uL Hgb 6.8 L* (12.0-15.0) g/dL Hct 23.3 L (37.2-46.3) % MCH 26.0 L (27.0-32.0) pg MCHC 29.2 L (32.0-37.0) g/dL RDW 15.5 H (11.5-14.5) % Plt Count 445 H (140-440) X 10*3/uL Plt Count Comment INCREASED A Immature Gran # 0.16 H (0.00-0.04) X 10*3/uL Neutrophils # 13.04 H (1.80-7.70) X 10*3/uL Monocytes # 1.70 H (0.20-1.00) X 10*3/uL ESR (0-20) mm/hr Chloride 111 H (96-109) mmol/L Carbon Dioxide 17.9 L (20.0-27.5) mmol/L Anion Gap 9.10 L (10.00-18.00) mmol/L BUN 34.7 H (9.0-27.0) mg/dL Est GFR (CKD-EPI)AfAm 40.5 L (60.0-200.0) Est GFR (CKD-EPI)NonAf 34.9 L (60.0-200.0) BUN/Creatinine Ratio 24.79 H (12.00-20.00) Ratio Glucose 113 H (70-110) mg/dL POC Glucose (mg/dL) (70-110) mg/dL Calcium 8.6 L (8.7-10.3) mg/dL Iron 5 L (50-170) ug/dL % Saturation 2.15 L (12.00-45.00) Transferrin 177.0 L (204.0-354.0) mg/dL Total Protein 5.6 L (6.2-8.2) g/dL Albumin 2.7 L (3.8-4.9) g/dL Albumin/Globulin Ratio 0.93 L (1.60-3.17) g/dL 10/13/21 10/13/21 10/13/21 Range/Units 07:05 10:56 11:12 WBC 16.1 H (4.50-10.00) X 10*3/uL RBC 3.06 L (4.10-5.20) X 10*6/uL Hgb 8.5 L (12.0-15.0) g/dL Hct 28.1 L (37.2-46.3) % MCH (27.0-32.0) pg MCHC 30.2 L (32.0-37.0) g/dL RDW (11.5-14.5) % Plt Count 470 H (140-440) X 10*3/uL Plt Count Comment Immature Gran # (0.00-0.04) X 10*3/uL Neutrophils # (1.80-7.70) X 10*3/uL Monocytes # (0.20-1.00) X 10*3/uL ESR (0-20) mm/hr Chloride (96-109) mmol/L Carbon Dioxide (20.0-27.5) mmol/L Anion Gap (10.00-18.00) mmol/L BUN (9.0-27.0) mg/dL Est GFR (CKD-EPI)AfAm (60.0-200.0) Est GFR (CKD-EPI)NonAf (60.0-200.0) BUN/Creatinine Ratio (12.00-20.00) Ratio Glucose (70-110) mg/dL POC Glucose (mg/dL) 60 L 185 H (70-110) mg/dL Calcium (8.7-10.3) mg/dL Iron (50-170) ug/dL % Saturation (12.00-45.00) Transferrin (204.0-354.0) mg/dL Total Protein (6.2-8.2) g/dL Albumin (3.8-4.9) g/dL Albumin/Globulin Ratio (1.60-3.17) g/dL 10/13/21 Range/Units 16:22 WBC (4.50-10.00) X 10*3/uL RBC (4.10-5.20) X 10*6/uL Hgb (12.0-15.0) g/dL Hct (37.2-46.3) % MCH (27.0-32.0) pg MCHC (32.0-37.0) g/dL RDW (11.5-14.5) % Plt Count (140-440) X 10*3/uL Plt Count Comment Immature Gran # (0.00-0.04) X 10*3/uL Neutrophils # (1.80-7.70) X 10*3/uL Monocytes # (0.20-1.00) X 10*3/uL ESR (0-20) mm/hr Chloride (96-109) mmol/L Carbon Dioxide (20.0-27.5) mmol/L Anion Gap (10.00-18.00) mmol/L BUN (9.0-27.0) mg/dL Est GFR (CKD-EPI)AfAm (60.0-200.0) Est GFR (CKD-EPI)NonAf (60.0-200.0) BUN/Creatinine Ratio (12.00-20.00) Ratio Glucose (70-110) mg/dL POC Glucose (mg/dL) 201 H (70-110) mg/dL Calcium (8.7-10.3) mg/dL Iron (50-170) ug/dL % Saturation (12.00-45.00) Transferrin (204.0-354.0) mg/dL Total Protein (6.2-8.2) g/dL Albumin (3.8-4.9) g/dL Albumin/Globulin Ratio (1.60-3.17) g/dL Microbiology - Last 24 Hours (Table) 10/12/21 11:35 Blood Culture - Preliminary Blood No Growth after 24 hours 10/12/21 11:48 Blood Culture - Preliminary Blood No Growth after 24 hours 10/12/21 16:50 Gram Stain - Preliminary Leg - Left Wound Culture - Preliminary 10/12/21 16:50 Anaerobic Culture - Preliminary Leg - Left 10/12/21 12:40 Urine Culture - Preliminary Urine,Voided Assessment and Plan (1) Infected stasis ulcer of left lower extremity Current Visit: Yes Status: Acute Code(s): I83.229 - VARICOS VN OF L LOW EXTREM W ULC OF UNSP SITE AND INFLAM; L97.929 - NON-PRS CHRONIC ULC UNSP PRT OF L LOW LEG W UNSP SEVERITY SNOMED Code(s): 324121649 Plan: 1patient presented to hospital with pain to the left lower extremity in this patient who did have a chronic nonhealing wound to the left leg concerning for wound infection secondary cellulitis plus minus a component of UTI in this patient has been in and out of the hospital will need to cover for resistant gram-positive as well as gram-negative. 2patient with multiple antibiotic allergies that would limit the number of antibiotics safe to use 3patient to continue with the vancomycin pharmacy to dose and cefepime while waiting for the cultures to finalize 4local wound care to the left leg [facility] by moist dressing change daily and awaiting surgical debridement Time with Patient: Less than 30
--- NOTE | 2021-10-15 09:03 | P.PN ---
Subjective Progress Note Date: 10/14/21 Principal diagnosis: left lower extremity wound and cellulitis Patient is 81 year old female with a past medical history significant for left PAD in this patient with a recent percutaneous intervention for a nonhealing wound subsequent to present to the hospital with worsening pain to the left leg wound concerning for ischemia and possible cellulitis. On today's evaluation that is 10/14/2021, the patient is afebrile this morning, the patient still complaining of significant pain to the left leg area, the patient denies having any chest pain or shortness of breath or cough no abdominal pain or any diarrhea Objective - Vital Signs Vital signs: Vital Signs Temp 98.4 F 10/14/21 07:14 Pulse 77 10/14/21 07:14 Resp 20 10/14/21 07:14 BP 124/48 10/14/21 07:14 Pulse Ox 95 10/14/21 08:00 FiO2 Intake & Output 10/13/21 10/14/21 10/14/21 18:59 06:59 18:59 Intake Total 600 Output Total 800 500 Balance -200 -500 Intake: Oral 600 Output: Urine 800 500 Uretheral (Triana) 800 Other: Voiding Method External Catheter Indwelling Catheter # Voids 200 - Exam GENERAL DESCRIPTION: An elderly female lying in bed in no distress RESPIRATORY SYSTEM: Unlabored breathing , decreased breath sounds at bases HEART: S1 S2 regular rate and rhythm , ABDOMEN: Soft , no tenderness EXTREMITIES: Left leg wound is currently dressed no drainage on the dressing - Labs CBC & Chem 7: 10/15/21 06:22 10/14/21 13:35 Labs: Abnormal Lab Results - Last 24 Hours (Table) 10/13/21 10/13/21 10/13/21 Range/Units 03:46 10:56 16:22 Potassium (3.5-5.1) mmol/L Chloride (98-107) mmol/L Carbon Dioxide (22-30) mmol/L BUN (7-17) mg/dL Creatinine (0.52-1.04) mg/dL POC Glucose (mg/dL) 201 H (70-110) mg/dL Hemoglobin A1c 8.9 H (0.0-6.0) % Magnesium (1.6-2.3) mg/dL Iron 5 L (50-170) ug/dL % Saturation 2.15 L (12.00-45.00) Transferrin 177.0 L (204.0-354.0) mg/dL 10/13/21 10/14/21 10/14/21 Range/Units 20:09 06:12 11:37 Potassium 6.0 H (3.5-5.1) mmol/L Chloride 115 H (98-107) mmol/L Carbon Dioxide 15 L (22-30) mmol/L BUN 40 H (7-17) mg/dL Creatinine 1.26 H (0.52-1.04) mg/dL POC Glucose (mg/dL) 171 H 54 L (70-110) mg/dL Hemoglobin A1c (0.0-6.0) % Magnesium 2.6 H (1.6-2.3) mg/dL Iron (50-170) ug/dL % Saturation (12.00-45.00) Transferrin (204.0-354.0) mg/dL Microbiology - Last 24 Hours (Table) 10/12/21 16:50 Gram Stain - Preliminary Leg - Left Wound Culture - Preliminary Gram Neg Bacilli 10/12/21 12:40 Urine Culture - Preliminary Urine,Voided Gram Neg Bacilli 10/12/21 11:35 Blood Culture - Preliminary Blood No Growth after 24 hours 10/12/21 11:48 Blood Culture - Preliminary Blood No Growth after 24 hours Assessment and Plan (1) Infected stasis ulcer of left lower extremity Current Visit: Yes Status: Acute Code(s): I83.229 - VARICOS VN OF L LOW EXTREM W ULC OF UNSP SITE AND INFLAM; L97.929 - NON-PRS CHRONIC ULC UNSP PRT OF L LOW LEG W UNSP SEVERITY SNOMED Code(s): 357606249 (2) UTI (urinary tract infection) Current Visit: Yes Status: Acute Code(s): N39.0 - URINARY TRACT INFECTION, SITE NOT SPECIFIED SNOMED Code(s): 83639256 Plan: 1patient presented to hospital with pain to the left lower extremity in this patient who did have a chronic nonhealing wound to the left leg concerning for wound infection secondary cellulitis plus minus a component of UTI in this patient has been in and out of the hospital will need to cover for resistant gram-positive as well as gram-negative. 2patient with multiple antibiotic allergies that would limit the number of antibiotics safe to use 3patient urine cultures currently growing gram-negative and the left leg wound culture showing gram-negative as well as 4-patient to continue cefepime however we'll discontinue vancomycin if no gram- positive is grown in the culture Time with Patient: Less than 30
[2021-10-15 09:14] VITALS: BP 102/76; PULSE 91; RESP 26; TEMP 99.6
[2021-10-15] MEDS ORDERED: CEFEPIME 2 GM in SODIUM CHLORIDE 0.9% 50 ML IVPB SCH (09:15)
[2021-10-15 09:16] LABS: Glucose,Whole Blood 188 mg/dL (70-110)
[2021-10-15] MEDS: SODIUM FERRIC GLUCONAT-SUCROSE 125 MG in SODIUM CHLORIDE 0.9% 100 ML IVPB SCH (09:55)
[2021-10-15] MEDS: MORPHINE SULFATE 4 MG/ML SYRINGE IVP PRN (10:38)
--- NOTE | 2021-10-15 11:15 | P.PN ---
Subjective Progress Note Date: 10/15/21 Hospital course: Patient is a very pleasant 81-year-old female with a very complex medical history including coronary disease status post stents, chronic kidney stage III, chronic systolic CHF with previously known EF 40-45%, Anemia of chronic disease, severe peripheral vascular disease with chronic left lower extremity ulceration status post left femoral and popliteal artery arthrectomy on 10/07/21 the patient had left femoral popliteal artery atherectomy. She presented to the emergency department on 10/12/21 with a chief complaint of increased weakness, generalized fatigue, and wound check. In the emergency department patient underwent full evaluation. She was found to have leukocytosis with WBC count of 16.3, anemia with hemoglobin of 8.4, thrombocytosis with platelet count of 543, hyperkalemia with potassium of 5.5, pseudohyponatremia with sodium of 130 and hyperglycemia with glucose of 541. Urinalysis positive for infection. Patient was started on broad-spectrum antibiotics with vancomycin and cefepime and was admitted under our services with sepsis secondary to infected left lower extremity ulcer and urinary tract infection. Physical examination: Patient seen and fully evaluated at bedside this morning. She underwent extensive debridement of bilateral lower extremities yesterday afternoon She is currently lethargic and upon opening her eyes she is alert to person and place only. Pt crying out and tearfully yelling out, "I'm scared, I'm scared." Antwan balbuena appears to be in pain. Hospice at bedside during evaluation and after being approved by patient's daughter and , pt being placed on comfort measures at this time. Vital signs reviewed and stable. General: Nontoxic, no distress and appears stated age. Derm: Skin warm and dry, normal coloration for ethnicity. Necrotic ulcer right heel, necrotic left great toe and surrounding region, necrotic ulcer to left heel, large ulceration to left medial surface of lower extremity. Ulceration large approximately 7 x 6 cm with purulent drainage. Head: Atraumatic, normocephalic and symmetric. Eyes: EOMs intact, no lid lag, and anicteric sclera Mouth: no lip lesions, mucus membranes moist Cardiovascular: regular rate and rhythm with normal S1S2, systolic murmur, positive posterior tibial pulses bilaterally, and cap refill < 2 seconds. Lungs: Respirations even, regular, and unlabored on room air. Lungs CTA bilaterally, no rhonchi, no rales, no wheezing, and no accessory muscle usage. Abdominal: soft, nontender to palpation, no guarding, no appreciable organomegaly Ext: ROM intact. No gross muscle atrophy, no edema, no contractures Neuro: Speech clear, face symmetrical and CN II-XII grossly intact with no noted focal neuro deficits Psych: Alert and oriented to person and place only. She is lethargic and tearful. Assessment and Plan of Care: Infected left leg ulcer with severe sepsis Severe Peripheral vascular disease of left lower extremity status post left femoral and popliteal artery arthrectomy 10/07/21 -Vascular surgery following, took patient for bilateral lower extremity debridement yesterday afternoon. -Blood cultures pending, showing no growth after 48 hours -Wound cultures positive for Klebsiella pneumoniae and Serratia marcescens -Broad-spectrum antibiotics discontinued per family's choice and patient being placed on hospice with comfort measures only at this time. Hyperkalemia, resolved Urinary tract infection -Urine cultures positive for E. coli and Streptococcus bovis -Patient being placed on hospice care. Insulin-dependent diabetes mellitus type 2 -Patient placed on glycemic protocol and being placed on hospice care. Diabetic peripheral neuropathy -Resume Lyrica Chronic systolic heart failure EF 40-45% Coronary disease status post stent Paroxysmal A. fib Chronic kidney stage III, stable Mild hyponatremia, resolved Dyslipidemia Anemia of chronic disease, stable Debility and deconditioning -Patient being placed on hospice care. CODE STATUS: DO NOT RESUSCITATE DVT prophylaxis: Eliquis Discussed with: Patient ,principal technical architect, Hospice and RN Anticipated discharge date: Clinical course to determine Anticipated discharge place: Home A total of 39 minutes was spent on the care of this complex patient more than 50% of the time was spent in counseling and care coordination. Konrad Alegre NP rendered care for this patient independently, reviewed the findings and plan as documented in the note above. I did not physically speak with or examine the patient on this date. Objective - Vital Signs Vital signs: Vital Signs Temp 97.5 F L 10/15/21 02:00 Pulse 76 10/15/21 02:00 Resp 14 10/15/21 02:00 BP 117/47 10/15/21 02:00 Pulse Ox 94 L 10/15/21 07:02 FiO2 Intake & Output 10/14/21 10/15/21 10/15/21 18:59 06:59 18:59 Intake Total 625 1080 Output Total 305 400 Balance 320 680 Weight 77.564 kg Intake: IV 625 Oral 1080 Output: Urine 290 400 Estimated Blood Loss 15 Other: Voiding Method Indwelling Catheter Indwelling Catheter - Labs CBC & Chem 7: 10/15/21 06:22 10/15/21 06:18 Labs: Abnormal Lab Results - Last 24 Hours (Table) 10/14/21 10/15/21 10/15/21 Range/Units 11:37 02:22 06:22 WBC 18.8 H (3.8-10.6) k/uL RBC 2.89 L (3.80-5.40) m/uL Hgb 7.9 L (11.4-16.0) gm/dL Hct 26.0 L (34.0-46.0) % MCHC 30.5 L (31.0-37.0) g/dL Plt Count 508 H (150-450) k/uL POC Glucose (mg/dL) 54 L 112 H (70-110) mg/dL 10/15/21 Range/Units 07:23 WBC (3.8-10.6) k/uL RBC (3.80-5.40) m/uL Hgb (11.4-16.0) gm/dL Hct (34.0-46.0) % MCHC (31.0-37.0) g/dL Plt Count (150-450) k/uL POC Glucose (mg/dL) 160 H (70-110) mg/dL Microbiology - Last 24 Hours (Table) 10/14/21 14:50 Anaerobic Culture - Preliminary Foot - Left 10/14/21 14:50 Wound Culture - Preliminary Foot - Left 10/12/21 16:50 Gram Stain - Final Leg - Left Wound Culture - Final Klebsiella pneumoniae Serratia marcescens 10/12/21 12:40 Urine Culture - Preliminary Urine,Voided Escherichia coli Streptococcus bovis 10/12/21 11:48 Blood Culture - Preliminary Blood No Growth after 48 hours 10/12/21 11:35 Blood Culture - Preliminary Blood No Growth after 48 hours
--- NOTE | 2021-10-15 11:18 | P.PN ---
Subjective Patient is seen in follow-up for acute kidney injury on chronic disease. Renal function better. Creatinine 1.26 yesterday and potassium was down to 4.9. Patient remains confused. Has a Triana catheter. Nonoliguric. Underwent debridement of lower extremity wounds 10/15/2019 Vital signs are stable. General: Resting in bed. Confused. HEENT: Head exam is unremarkable. LUNGS: Breath sounds decreased. HEART: Rate and Rhythm are regular. ABDOMEN: Soft, nontender. No distention. EXTREMITITES: Trace edema right lower extremity. Left lower extremity wrapped. No drainage. Objective - Vital Signs Vital signs: Vital Signs Temp 99.6 F 10/15/21 09:13 Pulse 91 10/15/21 09:13 Resp 26 H 10/15/21 09:13 BP 102/76 10/15/21 09:13 Pulse Ox 98 10/15/21 09:13 FiO2 Intake & Output 10/14/21 10/15/21 10/15/21 18:59 06:59 18:59 Intake Total 625 1080 Output Total 305 400 Balance 320 680 Weight 77.564 kg Intake: IV 625 Oral 1080 Output: Urine 290 400 Estimated Blood Loss 15 Other: Voiding Method Indwelling Catheter Indwelling Catheter Indwelling Catheter - Labs CBC & Chem 7: 10/15/21 06:22 10/14/21 13:35 Labs: Abnormal Lab Results - Last 24 Hours (Table) 10/14/21 10/15/21 10/15/21 Range/Units 11:37 02:22 06:22 WBC 18.8 H (3.8-10.6) k/uL RBC 2.89 L (3.80-5.40) m/uL Hgb 7.9 L (11.4-16.0) gm/dL Hct 26.0 L (34.0-46.0) % MCHC 30.5 L (31.0-37.0) g/dL Plt Count 508 H (150-450) k/uL POC Glucose (mg/dL) 54 L 112 H (70-110) mg/dL 10/15/21 10/15/21 Range/Units 07:23 09:04 WBC (3.8-10.6) k/uL RBC (3.80-5.40) m/uL Hgb (11.4-16.0) gm/dL Hct (34.0-46.0) % MCHC (31.0-37.0) g/dL Plt Count (150-450) k/uL POC Glucose (mg/dL) 160 H 188 H (70-110) mg/dL Microbiology - Last 24 Hours (Table) 10/12/21 16:50 Gram Stain - Final Leg - Left Wound Culture - Final Klebsiella pneumoniae Serratia marcescens 10/14/21 14:50 Anaerobic Culture - Preliminary Foot - Left 10/14/21 14:50 Wound Culture - Preliminary Foot - Left 10/12/21 12:40 Urine Culture - Preliminary Urine,Voided Escherichia coli Streptococcus bovis 10/12/21 11:48 Blood Culture - Preliminary Blood No Growth after 48 hours 10/12/21 11:35 Blood Culture - Preliminary Blood No Growth after 48 hours Assessment and Plan Plan: Assessment: 1. Acute kidney injury mostly prerenal secondary to infection and hyperglycemia. Creatinine 1.47 on admission - 1.26 yesterday. Kidney ultrasound from June 2021 showed no evidence of hydronephrosis. 2. Chronic kidney disease stage IIIA with baseline creatinine in the range of 1.2-1.4 secondary to prior acute kidney injury episodes as well as diabetic kidney disease. 3. Left lower extremity wounds. S/p debridement 10/14/2021. Wound culture positive for Klebsiella and Serratia. 4. Hyperkalemia secondary to acute kidney injury and metabolic acidosis. 5. Metabolic acidosis secondary to acute kidney injury and IV fluids. Acetone negative. 6. Hypotonic hyponatremia secondary to hyperglycemia. Improved. 7. Anemia of chronic kidney disease. Iron deficiency noted. 8. Diabetes mellitus. 9. Chronic systolic CHF with ejection fraction of 40-45% with mild to moderate tricuspid regurgitation and moderate pulmonary hypertension. 10. UTI with urine culture positive for E. coli and strep. Plan: Patient is now hospice. She will be started on morphine. I will sign off. Please call with any questions or concerns.
[2021-10-15 12:13] LABS: African American GFR (CKD) 48.7 (60.0-200.0); Anion Gap 12.7 mmol/L (10.00-18.00); BUN/Creat Ratio 22.33 Ratio (12.00-20.00); Blood Urea Nitrogen 26.8 mg/dL (9.0-27.0); Calcium 8.2 mg/dL (8.7-10.3); Carbon Dioxide 19.3 mmol/L (20.0-27.5); Magnesium 2.4 mg/dL (1.5-2.4); Non-African American GFR(CKD) 42.1 (60.0-200.0); Potassium 4.9 mmol/L (3.5-5.5)
--- NOTE | 2021-10-15 14:37 | P.DS ---
Providers Date of admission: 10/12/21 14:02 Expected date of discharge: 10/15/21 Attending physician: Hernan Maciel MD Consults: 10/12/21 14:22 Consult Physician Routine Consulting Provider: Rosangela Rodriguez Consult Reason/Comments: urosepsis Do you want consulting provider notified?: Yes 10/12/21 14:23 Consult Physician Routine Consulting Provider: Francoise Triana Consult Reason/Comments: PAD Do you want consulting provider notified?: Yes 10/12/21 15:01 Consult Physician Routine Consulting Provider: Keren Bledsoe Consult Reason/Comments: PRAVIN/Hyponatremia Do you want consulting provider notified?: Yes Primary care physician: Mark Bhandari MD Hospital Course: Discharge Diagnosis: Patient being discharged into inpatient hospice care at this time. Infected left leg ulcer with severe sepsis, underwent extensive debridement of bilateral lower extremities on 10/14/21. Patient being discharged into inpatient hospice care at this time. Severe Peripheral vascular disease of left lower extremity status post left femoral and popliteal artery arthrectomy 10/07/21 Hyperkalemia, resolved E. coli and Streptococcus bovis positive Urinary tract infection Insulin-dependent diabetes mellitus type 2 Diabetic peripheral neuropathy Chronic systolic heart failure EF 40-45% Coronary disease status post stent Paroxysmal A. fib Chronic kidney stage III, stable Mild hyponatremia, resolved Dyslipidemia Anemia of chronic disease, stable Debility and deconditioning Hospital Course: Patient is a very pleasant 81-year-old female with a very complex medical history including coronary disease status post stents, chronic kidney stage III, chronic systolic CHF with previously known EF 40-45%, Anemia of chronic disease, severe peripheral vascular disease with chronic left lower extremity ulceration status post left femoral and popliteal artery arthrectomy on 10/07/21 the patient had left femoral popliteal artery atherectomy. She presented to the emergency department on 10/12/21 with a chief complaint of increased weakness, generalized fatigue, and wound check. In the emergency department patient underwent full evaluation. She was found to have leukocytosis with WBC count of 16.3, anemia with hemoglobin of 8.4, thrombocytosis with platelet count of 543, hyperkalemia with potassium of 5.5, pseudohyponatremia with sodium of 130 and hyperglycemia with glucose of 541. Urinalysis positive for infection. Patient was started on broad-spectrum antibiotics with vancomycin and cefepime and was admitted under our services with sepsis secondary to infected left lower extremity ulcer and urinary tract infection. Patient continued treatment with IV antibiotics and fluids. On 10/14/21 patient underwent an extensive bilateral lower extremity debridement completed by vascular surgery. Urine cultures positive for E. coli and Streptococcus bovis. Blood cultures pending, showing no growth after 48 hours. Wound cultures positive for Klebsiella pneumoniae and Serratia marcescens. Patient's family ( and daughter) decided at this time secondary to patient's progressively worsening weakness, fatigue, and pain she has experienced over the past few months and current status, that it was best to proceed with hospice and provide comfort measures only. Physical examination: Vital signs reviewed and stable. General: Nontoxic, no distress and appears stated age. Derm: Skin warm and dry, normal coloration for ethnicity. Postsurgical Dressings in place to bilateral lower extremities status post debridement. Head: Atraumatic, normocephalic and symmetric. Eyes: EOMs intact, no lid lag, and anicteric sclera Mouth: no lip lesions, mucus membranes moist Cardiovascular: regular rate and rhythm with normal S1S2, systolic murmur, positive posterior tibial pulses bilaterally, and cap refill < 2 seconds. Lungs: Respirations even, regular, and unlabored on room air. Lungs CTA bilaterally, no rhonchi, no rales, no wheezing, and no accessory muscle usage. Abdominal: soft, nontender to palpation, no guarding, no appreciable organomegaly Ext: ROM intact. No gross muscle atrophy, no edema, no contractures Neuro: Speech clear, face symmetrical and CN II-XII grossly intact with no noted focal neuro deficits Psych: Alert and oriented to person and place only. She is lethargic and tearful. Pt was discharged into inpatient hospice care at this time. Konrad Alegre NP rendered care for this patient independently, reviewed the findings and plan as documented in the note above. I did not physically speak with or examine the patient on this date. Plan - Discharge Summary Discharge Rx Participant: No New Discharge Prescriptions: No Action Pantoprazole Sodium 40 mg PO DAILY Famotidine [Pepcid] 20 mg PO HS Ferrous Sulfate [Iron (65 MG Elemental)] 325 mg PO DAILY Fluticasone Nasal [place] [Flonase Nasal [place]] 1 spr EA NOSTRIL DAILY PRN PRN Reason: Allergy Symptoms Apixaban [Eliquis] 2.5 mg PO BID #60 tablet Furosemide [Lasix] 60 mg PO BID@0900,1500 Insulin Glargine,Hum.rec.anlog [Lantus Solostar Pen] 18 units SQ HS carvediloL 12.5 mg PO BID Pregabalin [Lyrica] 100 mg PO BID Ascorbic Acid [Vitamin C] 1,000 mg PO DAILY Acetaminophen [Tylenol Extra Strength] 1,000 mg PO Q6H PRN PRN Reason: Pain Insulin Aspart [NovoLOG Flexpen] See Protocol SQ AC-TID L.acidoph,Paracasei, B.lactis [Probiotic] 1 cap PO DAILY Atorvastatin [Lipitor] 80 mg PO HS #90 tab Clopidogrel [Plavix] 75 mg PO DAILY #90 tab Cholecalciferol [Vitamin D3 (25 Mcg = 1000 Iu)] 50 mcg PO DAILY Discharge Medication List Pantoprazole Sodium 40 mg PO DAILY 05/08/18 [History] Famotidine [Pepcid] 20 mg PO HS 06/08/19 [History] Ferrous Sulfate [Iron (65 MG Elemental)] 325 mg PO DAILY 06/08/19 [History] Acetaminophen [Tylenol Extra Strength] 1,000 mg PO Q6H PRN 03/30/21 [History] Ascorbic Acid [Vitamin C] 1,000 mg PO DAILY 03/30/21 [History] Fluticasone Nasal [place] [Flonase Nasal [place]] 1 spr EA NOSTRIL DAILY PRN 06/17/21 [History] Apixaban [Eliquis] 2.5 mg PO BID #60 tablet 06/30/21 [Rx] Furosemide [Lasix] 60 mg PO BID@0900,1500 08/11/21 [History] Insulin Aspart [NovoLOG Flexpen] See Protocol SQ AC-TID 08/28/21 [History] Insulin Glargine,Hum.rec.anlog [Lantus Solostar Pen] 18 units SQ HS 08/28/21 [History] L.acidoph,Paracasei, B.lactis [Probiotic] 1 cap PO DAILY 09/29/21 [History] carvediloL 12.5 mg PO BID 09/29/21 [History] Atorvastatin [Lipitor] 80 mg PO HS #90 tab 10/08/21 [Rx] Clopidogrel [Plavix] 75 mg PO DAILY #90 tab 10/08/21 [Rx] Cholecalciferol [Vitamin D3 (25 Mcg = 1000 Iu)] 50 mcg PO DAILY 10/12/21 [History] Pregabalin [Lyrica] 100 mg PO BID 10/12/21 [History] Follow up Appointment(s)/Referral(s): Mark Bhandari MD [Primary Care Provider] - 1-2 days Discharge Disposition: [facility]
[2021-10-15] MEDS ORDERED: CEFEPIME 2 GM in SODIUM CHLORIDE 0.9% 100 ML IVPB SCH (16:00)
== END 2021-10-15 10:59 | disposition hospice, inpatient (51) | DRG 854 ==
LOC: EC 11:03 → 4SSUR 14:02
PROVIDERS: ADMIT Hospitalist; ATTEND Hospitalist
PROC: 0JBR0ZZ Excision of Left Foot Subcutaneous Tissue and Fascia, Open Approach (ICD-10-PCS; 2021-10-14)
PROC: 0KBT0ZZ Excision of Left Lower Leg Muscle, Open Approach (ICD-10-PCS; principal; 2021-10-14 13:30)
DX: A41.51 Sepsis due to Escherichia coli [E. coli] (principal); E87.1 Hypo-osmolality and hyponatremia; N39.0 Urinary tract infection, site not specified; I13.0 Hypertensive heart and chronic kidney disease with heart failure and stage 1 through stage 4 chronic kidney disease, or unspecified chronic kidney disease; E87.2 Acidosis; I50.22 Chronic systolic (congestive) heart failure; L97.429 Non-pressure chronic ulcer of left heel and midfoot with unspecified severity; L97.419 Non-pressure chronic ulcer of right heel and midfoot with unspecified severity; N17.9 Acute kidney failure, unspecified; L03.116 Cellulitis of left lower limb; A41.59 Other Gram-negative sepsis; R65.20 Severe sepsis without septic shock; Z66 Do not resuscitate; Z51.5 Encounter for palliative care; E11.22 Type 2 diabetes mellitus with diabetic chronic kidney disease; E11.42 Type 2 diabetes mellitus with diabetic polyneuropathy; E11.51 Type 2 diabetes mellitus with diabetic peripheral angiopathy without gangrene; E78.5 Hyperlipidemia, unspecified; E66.9 Obesity, unspecified; N18.31 Chronic kidney disease, stage 3a; D75.839 Thrombocytosis, unspecified; D63.1 Anemia in chronic kidney disease; I07.1 Rheumatic tricuspid insufficiency; I27.20 Pulmonary hypertension, unspecified; E11.649 Type 2 diabetes mellitus with hypoglycemia without coma; E87.5 Hyperkalemia; T38.3X6A Underdosing of insulin and oral hypoglycemic [antidiabetic] drugs, initial encounter; M85.80 Other specified disorders of bone density and structure, unspecified site; I83.029 Varicose veins of left lower extremity with ulcer of unspecified site; I25.10 Atherosclerotic heart disease of native coronary artery without angina pectoris; I48.0 Paroxysmal atrial fibrillation; E11.65 Type 2 diabetes mellitus with hyperglycemia; Z95.5 Presence of coronary angioplasty implant and graft; Z68.32 Body mass index [BMI] 32.0-32.9, adult; I25.2 Old myocardial infarction; Z87.891 Personal history of nicotine dependence; Z91.14 Patient's other noncompliance with medication regimen; Z90.710 Acquired absence of both cervix and uterus; Z79.899 Other long term (current) drug therapy; Z79.4 Long term (current) use of insulin; Z79.02 Long term (current) use of antithrombotics/antiplatelets; Z79.01 Long term (current) use of anticoagulants
CPT/HCPCS: 36410; 36415; 71046; 76937; 80048; 80053; 80202; 81001; 82009; 82728; 83036; 83540; 83550; 83605; 83735; 84132; 84484; 85025; 85027; 85610; 85652; 85730; 86140; 87040; 87070; 87075; 87077; 87086; 87186; 87205; 93005; 94760; 96361; 96374; 96375; 99285

== ENCOUNTER 2021-10-15 10:49 | Inpatient (IN) | payer MEDICAID ==
[2021-10-15] MEDS ORDERED: ACETAMINOPHEN SUPPOSITORY 650 MG SUPP RECTAL PRN (10:51)
[2021-10-15] MEDS ORDERED: LORazepam 2 MG/ML INJ IV PRN (10:51)
[2021-10-15] MEDS ORDERED: ATROPINE OPHTH SOLN 1% 5ML BTL SUBLINGUAL PRN (10:51)
[2021-10-15] MEDS ORDERED: ONDANSETRON 4 MG/2 ML VIAL IVP PRN (10:51)
[2021-10-15] MEDS ORDERED: bisacodyL 10 MG SUPP RECTAL PRN (10:55)
[2021-10-15] MEDS ORDERED: SCOPOLAMINE 1 MG/72 HR PATCH TRANSDERM SCH (11:00)
--- NOTE | 2021-10-15 13:55 | P.HPIM ---
History of Present Illness H&P Date: 10/15/21 History of Presenting Illness: Patient is a very pleasant 81-year-old female with a very complex medical history including coronary disease status post stents, chronic kidney stage III, chronic systolic CHF with previously known EF 40-45%, Anemia of chronic disease, severe peripheral vascular disease with chronic left lower extremity ulceration status post left femoral and popliteal artery arthrectomy on 10/07/21 and bilateral lower extremity debridement on 10/14/21. Patient was admitted with an infected leg ulcer with sepsis with wound culture positive for Klebsiella pneumoniae and Serratia marcescens along with E. coli and Streptococcus bovis UTI. Patient had become altered with decreased level of responsiveness and upon awakening only tearful and crying out in pain. Family decided to transition patient to hospice with comfort measures only. Patient currently admitted under inpatient hospice at this time. at bedside. Patient lethargic, will open eyes and respond via tactile stimulation. She ia alert and oriented to person and place only. She is lethargic and tearful. Review of systems: Unable to complete full ROS secondary to patient's altered mentation. Physical examination: Vital signs reviewed and stable. General: Nontoxic, no distress and appears stated age. Derm: Skin warm and dry, normal coloration for ethnicity. Postsurgical Dressings in place to bilateral lower extremities status post debridement. Head: Atraumatic, normocephalic and symmetric. Eyes: EOMs intact, no lid lag, and anicteric sclera Mouth: no lip lesions, mucus membranes moist Cardiovascular: regular rate and rhythm with normal S1S2, systolic murmur, positive posterior tibial pulses bilaterally, and cap refill < 2 seconds. Lungs: Respirations even, regular, and unlabored on room air. Lungs CTA bilaterally, no rhonchi, no rales, no wheezing, and no accessory muscle usage. Abdominal: soft, nontender to palpation, no guarding, no appreciable organomegaly Ext: ROM intact. No gross muscle atrophy, no edema, no contractures Neuro: Speech clear, face symmetrical and CN II-XII grossly intact with no noted focal neuro deficits Psych: Alert and oriented to person and place only. She is lethargic and tearful. Assessment and plan of care: Hospice admission Infected left leg ulcer with wound culture positive for Klebsiella pneumoniae and Serratia marcescens, underwent extensive debridement of bilateral lower extremities on 10/14/21. Severe Peripheral vascular disease of left lower extremity status post left femoral and popliteal artery arthrectomy 10/07/21 E. coli and Streptococcus bovis positive Urinary tract infection Insulin-dependent diabetes mellitus type 2 Diabetic peripheral neuropathy Chronic systolic heart failure EF 40-45% Coronary disease status post stent Paroxysmal A. fib Chronic kidney stage III, stable Mild hyponatremia, resolved Dyslipidemia Anemia of chronic disease, stable Debility and deconditioning -Comfort measures only. -Pain management , Patient started on morphine drip, to be titrated as needed for comfort. -Scopolamine patch every 72 hours along with atropine drops as needed for excess secretions. -Ativan -Hospice team following CODE STATUS: DO NOT RESUSCITATE/DO NOT INTUBATE, Comfort measures only Discussed with: Patient, RN, hospitalist team, and patient's Patient to remain inpatient hospice with comfort measures only. Konrad Alegre NP rendered care for this patient independently, reviewed the findings and plan as documented in the note above. I did not physically speak with or examine the patient on this date. Past Medical History Past Medical History: Diabetes Mellitus, GERD/Reflux, Hypertension, Osteoarthritis (OA), Skin Disorder, Syncope, Vascular Disorder Additional Past Medical History / Comment(s): Arthritis in lower back. Poor circulation in legs, wound left lower leg calf area w/ pain, neuropathy in feet, [facility] to [facility]. Edema BLE, wears TEDS on right leg. SOB ON EXERTION History of Any Multi-Drug Resistant Organisms: None Reported Past Surgical History: Appendectomy, Breast Surgery, Ear Surgery, Heart Catheterization, Heart Catheterization With Stent, Hysterectomy Additional Past Surgical History / Comment(s): Varicose vein stripping left leg. Left ear myringotomy/tubes. colonoscopy. Left breast biopsy. Bilateral cataracts. Left leg wound debridement. Past Anesthesia/Blood Transfusion Reactions: No Reported Reaction Date of Last Stent Placement:: 11/26 Past Psychological History: No Psychological Hx Reported Smoking Status: Former smoker Past Alcohol Use History: Rare Past Drug Use History: None Reported - Past Family History Father Family Medical History: Cancer Additional Family Medical History / Comment(s): COLON CANCER. Mother Family Medical History: Diabetes Mellitus, Renal Disease Additional Family Medical History / Comment(s): RENAL FAILURE. Brother(s) Family Medical History: Cancer Additional Family Medical History / Comment(s): 3 brothers - 2 had stomach cancer, 1 had esophageal cancer. Medications and Allergies Home Medications Medication Instructions Recorded Confirmed Type Pantoprazole Sodium 40 mg PO DAILY 05/08/18 10/15/21 History Famotidine [Pepcid] 20 mg PO HS 06/08/19 10/15/21 History Ferrous Sulfate [Iron (65 MG 325 mg PO DAILY 06/08/19 10/15/21 History Elemental)] Acetaminophen [Tylenol Extra 1,000 mg PO Q6H PRN 03/30/21 10/15/21 History Strength] Ascorbic Acid [Vitamin C] 1,000 mg PO DAILY 03/30/21 10/15/21 History Fluticasone Nasal [place] [Flonase 1 spr EA NOSTRIL DAILY PRN 06/17/21 10/15/21 History Nasal [place]] Apixaban [Eliquis] 2.5 mg PO BID #60 tablet 06/30/21 10/15/21 Rx Furosemide [Lasix] 60 mg PO BID@0900,1500 08/11/21 10/15/21 History Insulin Aspart [NovoLOG Flexpen] See Protocol SQ AC-TID 08/28/21 10/15/21 History Insulin Glargine,Hum.rec.anlog 18 units SQ HS 08/28/21 10/15/21 History [Lantus Solostar Pen] L.acidoph,Paracasei, B.lactis 1 cap PO DAILY 09/29/21 10/15/21 History [Probiotic] carvediloL 12.5 mg PO BID 09/29/21 10/15/21 History Atorvastatin [Lipitor] 80 mg PO HS #90 tab 10/08/21 10/15/21 Rx Clopidogrel [Plavix] 75 mg PO DAILY #90 tab 10/08/21 10/15/21 Rx Cholecalciferol [Vitamin D3 (25 50 mcg PO DAILY 10/12/21 10/15/21 History Mcg = 1000 Iu)] Pregabalin [Lyrica] 100 mg PO BID 10/12/21 10/15/21 History Allergies Allergy/AdvReac Type Severity Reaction Status Date / Time bacitracin Allergy Unknown Verified 10/15/21 12:38 [From Neosporin ([id number])] bacitracin zinc Allergy Unknown Verified 10/15/21 12:38 [From Neosporin ([id number])] latex Allergy Rash/Hives Verified 10/15/21 12:38 neomycin sulfate Allergy Unknown Verified 10/15/21 12:38 [From Neosporin ([id number])] Penicillins Allergy Rash & Verified 10/15/21 12:38 Fatigue polymyxin B Allergy Unknown Verified 10/15/21 12:38 [From Neosporin ([id number])] Sulfa (Sulfonamide Allergy Rash & Verified 10/15/21 12:38 Antibiotics) Fatigue Physical Exam Osteopathic Statement: *. No significant issues noted on an osteopathic structural exam other than those noted in the History and Physical/Consult. Vitals: Intake and Output 10/14/21 10/15/21 10/15/21 22:59 06:59 14:59 Output Total 125 Balance -125 Output: Urine 125 Other: Weight 77.564 kg
[2021-10-15] MEDS ORDERED: MORPHINE SULFATE 2 MG/ML SYRINGE IVP PRN (16:22)
[2021-10-15] MEDS: MORPHINE SULFATE (100 MG/2 ML) 100 MG in SODIUM CHLORIDE 0.9% 100 ML IV SCH (17:40)
[2021-10-15] MEDS: LORazepam 1 MG/0.5 ML VIAL IV PRN (17:48)
[2021-10-16] MEDS: LORazepam 1 MG/0.5 ML VIAL IV PRN (08:11)
--- NOTE | 2021-10-16 10:05 | P.PN ---
Subjective Progress Note Date: 10/16/21 Hospital Course: Patient is a very pleasant 81-year-old female with a very complex medical history including coronary disease status post stents, chronic kidney stage III, chronic systolic CHF with previously known EF 40-45%, Anemia of chronic disease, severe peripheral vascular disease with chronic left lower extremity ulceration status post left femoral and popliteal artery arthrectomy on 10/07/21 and bilateral lower extremity debridement on 10/14/21. Patient was admitted with an infected leg ulcer with sepsis with wound culture positive for Klebsiella pneumoniae and Serratia marcescens along with E. coli and Streptococcus bovis UTI. Patient had become altered with decreased level of responsiveness and upon awakening only tearful and crying out in pain. Family decided to transition patient to hospice with comfort measures only. Patient was admitted under inpatient hospice care on 10/15/21. Physical examination: Patient seen and fully evaluated at the bedside. RN reports patient's just to wait to get some breakfast. Patient appears to be resting comfortably at this time. She was on morphine infusion at 4 mg per hour which appears to be adequately controlling her pain. Vital signs reviewed and stable. General: Nontoxic, no distress and appears stated age. Derm: Skin warm and dry, normal coloration for ethnicity. Postsurgical Dressings in place to bilateral lower extremities status post debridement. Head: Atraumatic, normocephalic and symmetric. Eyes: EOMs intact, no lid lag, and anicteric sclera Mouth: no lip lesions, mucus membranes moist Cardiovascular: regular rate and rhythm with normal S1S2, systolic murmur, positive posterior tibial pulses bilaterally, and cap refill < 2 seconds. Lungs: Respirations even, regular, and unlabored on room air. Lungs CTA bilaterally, no rhonchi, no rales, no wheezing, and no accessory muscle usage. Abdominal: soft, nontender to palpation, no guarding, no appreciable organomegaly Ext: ROM intact. No gross muscle atrophy, no edema, no contractures Neuro/psych: Patient sedated and resting comfortably at this time. Assessment and plan of care: Hospice Care Infected left leg ulcer with wound culture positive for Klebsiella pneumoniae and Serratia marcescens, underwent extensive debridement of bilateral lower extremities on 10/14/21. Severe Peripheral vascular disease of left lower extremity status post left femoral and popliteal artery arthrectomy 10/07/21 E. coli and Streptococcus bovis positive Urinary tract infection Insulin-dependent diabetes mellitus type 2 Diabetic peripheral neuropathy Chronic systolic heart failure EF 40-45% Coronary disease status post stent Paroxysmal A. fib Chronic kidney stage III, stable Mild hyponatremia, resolved Dyslipidemia Anemia of chronic disease, stable Debility and deconditioning -Comfort measures only. -Pain management , Patient started on morphine drip, to be titrated as needed for comfort. -Scopolamine patch every 72 hours along with atropine drops as needed for excess secretions. -Ativan -Hospice team following CODE STATUS: DO NOT RESUSCITATE/DO NOT INTUBATE, Comfort measures only Discussed with: Hospice team and RN Patient to remain inpatient hospice with comfort measures only. Objective - Vital Signs Vital signs: Vital Signs Temp Pulse 81 10/16/21 05:40 Resp 18 10/16/21 05:40 BP Pulse Ox 93 L 10/16/21 05:40 FiO2 Intake & Output 10/15/21 10/16/21 10/16/21 18:59 06:59 18:59 Intake Total 14.688 Output Total 405 275 Balance -405 -275 14.688 Weight 77.564 kg Intake: Intake, IV Titration 14.688 Amount Morphine Sulfate (100 mg/ 14.688 2 ml) 100 mg In Sodium Chloride 0.9% 100 ml @ 1 MG/HR 1.02 mls/hr IV . Q24H [facility] Rx#:[id number] Output: Urine 405 275
[2021-10-16] MEDS: MORPHINE SULFATE (100 MG/2 ML) 100 MG in SODIUM CHLORIDE 0.9% 100 ML IV SCH ×2 (11:35→20:13)
[2021-10-16 19:46] VITALS: PULSE 94; RESP 12
[2021-10-17] MEDS: MORPHINE SULFATE (100 MG/2 ML) 100 MG in SODIUM CHLORIDE 0.9% 100 ML IV SCH (02:56)
--- NOTE | 2021-10-17 16:19 | P.DS ---
Providers Date of admission: 10/15/21 11:02 Expected date of discharge: 10/17/21 Attending physician: Anjelica Jaramillo DO Primary care physician: Physician Nonstaff Hospital Course: PATIENT , TIME OF PRONOUNCED 10/17/21 at 6:28 AM.: Diagnoses: Infected left leg ulcer with wound culture positive for Klebsiella pneumoniae and Serratia marcescens, underwent extensive debridement of bilateral lower extremities on 10/14/21. Severe Peripheral vascular disease of left lower extremity status post left femoral and popliteal artery arthrectomy 10/07/21 E. coli and Streptococcus bovis positive Urinary tract infection Insulin-dependent diabetes mellitus type 2 Diabetic peripheral neuropathy Chronic systolic heart failure EF 40-45% Coronary disease status post stent Paroxysmal A. fib Chronic kidney stage III, stable Mild hyponatremia, resolved Dyslipidemia Anemia of chronic disease, stable Debility and deconditioning Hospital Course: Patient was a very pleasant 81-year-old female with a very complex medical history including coronary disease status post stents, chronic kidney stage III, chronic systolic CHF with previously known EF 40-45%, Anemia of chronic disease, severe peripheral vascular disease with chronic left lower extremity ulceration status post left femoral and popliteal artery arthrectomy on 10/07/21 and bilateral lower extremity debridement on 10/14/21. Patient was admitted with an infected leg ulcer with sepsis with wound culture positive for Klebsiella pneumoniae and Serratia marcescens along with E. coli and Streptococcus bovis UTI. Patient had become altered with decreased level of responsiveness and upon awakening only tearful and crying out in pain. Family decided to transition patient to hospice with comfort measures only. Patient was admitted under inpatient hospice care on 10/15/21. Patient was kept comfortable throughout this time. Time of was pronounced on 10/17/21 at 6:28 AM. Patient , Time of was pronounced on 10/17/21 at 6:28 AM. Plan - Discharge Summary New Discharge Prescriptions: No Action Pantoprazole Sodium 40 mg PO DAILY Famotidine [Pepcid] 20 mg PO HS Ferrous Sulfate [Iron (65 MG Elemental)] 325 mg PO DAILY Fluticasone Nasal [place] [Flonase Nasal [place]] 1 spr EA NOSTRIL DAILY PRN PRN Reason: Allergy Symptoms Apixaban [Eliquis] 2.5 mg PO BID #60 tablet Furosemide [Lasix] 60 mg PO BID@0900,1500 Insulin Glargine,Hum.rec.anlog [Lantus Solostar Pen] 18 units SQ HS carvediloL 12.5 mg PO BID Pregabalin [Lyrica] 100 mg PO BID Ascorbic Acid [Vitamin C] 1,000 mg PO DAILY Acetaminophen [Tylenol Extra Strength] 1,000 mg PO Q6H PRN PRN Reason: Pain Insulin Aspart [NovoLOG Flexpen] See Protocol SQ AC-TID L.acidoph,Paracasei, B.lactis [Probiotic] 1 cap PO DAILY Atorvastatin [Lipitor] 80 mg PO HS #90 tab Clopidogrel [Plavix] 75 mg PO DAILY #90 tab Cholecalciferol [Vitamin D3 (25 Mcg = 1000 Iu)] 50 mcg PO DAILY Discharge Medication List Pantoprazole Sodium 40 mg PO DAILY 05/08/18 [History] Famotidine [Pepcid] 20 mg PO HS 06/08/19 [History] Ferrous Sulfate [Iron (65 MG Elemental)] 325 mg PO DAILY 06/08/19 [History] Acetaminophen [Tylenol Extra Strength] 1,000 mg PO Q6H PRN 03/30/21 [History] Ascorbic Acid [Vitamin C] 1,000 mg PO DAILY 03/30/21 [History] Fluticasone Nasal [place] [Flonase Nasal [place]] 1 spr EA NOSTRIL DAILY PRN 06/17/21 [History] Apixaban [Eliquis] 2.5 mg PO BID #60 tablet 06/30/21 [Rx] Furosemide [Lasix] 60 mg PO BID@0900,1500 08/11/21 [History] Insulin Aspart [NovoLOG Flexpen] See Protocol SQ AC-TID 08/28/21 [History] Insulin Glargine,Hum.rec.anlog [Lantus Solostar Pen] 18 units SQ HS 08/28/21 [History] L.acidoph,Paracasei, B.lactis [Probiotic] 1 cap PO DAILY 09/29/21 [History] carvediloL 12.5 mg PO BID 09/29/21 [History] Atorvastatin [Lipitor] 80 mg PO HS #90 tab 10/08/21 [Rx] Clopidogrel [Plavix] 75 mg PO DAILY #90 tab 10/08/21 [Rx] Cholecalciferol [Vitamin D3 (25 Mcg = 1000 Iu)] 50 mcg PO DAILY 10/12/21 [Histo ry] Pregabalin [Lyrica] 100 mg PO BID 10/12/21 [History] Discharge Disposition: - Preliminary Cause of Preliminary Cause of : Sepsis
== END 2021-10-17 06:28 | disposition expired | DRG 951 ==
LOC: 4SSUR 11:02
PROVIDERS: ADMIT Internal Medicine; ATTEND Internal Medicine
DX: Z51.5 Encounter for palliative care (principal); A40.9 Streptococcal sepsis, unspecified; L97.909 Non-pressure chronic ulcer of unspecified part of unspecified lower leg with unspecified severity; I13.0 Hypertensive heart and chronic kidney disease with heart failure and stage 1 through stage 4 chronic kidney disease, or unspecified chronic kidney disease; I50.22 Chronic systolic (congestive) heart failure; E87.1 Hypo-osmolality and hyponatremia; N39.0 Urinary tract infection, site not specified; B96.1 Klebsiella pneumoniae [K. pneumoniae] as the cause of diseases classified elsewhere; B96.20 Unspecified Escherichia coli [E. coli] as the cause of diseases classified elsewhere; E11.22 Type 2 diabetes mellitus with diabetic chronic kidney disease; N18.30 Chronic kidney disease, stage 3 unspecified; D63.1 Anemia in chronic kidney disease; Z79.4 Long term (current) use of insulin; I25.10 Atherosclerotic heart disease of native coronary artery without angina pectoris; E11.42 Type 2 diabetes mellitus with diabetic polyneuropathy; E11.51 Type 2 diabetes mellitus with diabetic peripheral angiopathy without gangrene; E78.5 Hyperlipidemia, unspecified; R53.81 Other malaise; I48.0 Paroxysmal atrial fibrillation; Z66 Do not resuscitate; Z79.01 Long term (current) use of anticoagulants; Z79.02 Long term (current) use of antithrombotics/antiplatelets; Z79.899 Other long term (current) drug therapy; Z80.0 Family history of malignant neoplasm of digestive organs; Z83.3 Family history of diabetes mellitus; Z87.891 Personal history of nicotine dependence; Z90.710 Acquired absence of both cervix and uterus; Z95.5 Presence of coronary angioplasty implant and graft; Z88.0 Allergy status to penicillin; Z88.2 Allergy status to sulfonamides; Z88.1 Allergy status to other antibiotic agents; Z91.040 Latex allergy status